=== PATIENT | female | born 1940 | race African-American/Black ===

== ENCOUNTER → 2017-01-30 | Outpatient (CLI) | payer OTHER, MEDICARE ==
[~2017-01-30] MED LIST: CALCIUM CARB/VIT D3 250/125 TABLET. PO SCH; CHOLECALCIFEROL (VITAMIN D3) 1,000 UNIT TABLET PO SCH; GADOBUTROL 7.5 MMOL/7.5 ML VIAL IV ONE; LABETALOL HCL 200 MG TABLET PO SCH; LOSARTAN POTASSIUM 50 MG TABLET. PO SCH; MONTELUKAST SODIUM 10 MG TABLET. PO SCH
--- NOTE | 2017-01-30 13:36 | RAD ---
MRI thoracic spine with and without contrast January 30, 2017 INDICATION: History of breast cancer. Mid thoracic spine pain radiating to the size for one month. COMPARISON: CT chest January 18, 2017 TECHNIQUE: Multiplanar, multisequence MR imaging of the thoracic spine is performed before and after the administration of intravenous contrast. 5 mL gadolinium based contrast was administered intravenously. FINDINGS: Alignment of the thoracic spine is normal. There are T1 hypointense areas at all levels of the visualized spine compatible with osseous metastatic disease. Findings are most significant at T5, T6, T7 and T8. At T5, there is a pathologic fracture with 25 percent loss of height. Low T1 signal alteration extends into the left pedicle and superior facet. There is a paraspinal soft tissue component measuring 3.8 cm in AP dimension. There is suggestion of possible left anterior epidural component with mild stenosis of the spinal canal. There may be mild left neuroforaminal stenosis, however evaluation is limited by extensive motion artifact. No additional fracture is identified. There is no cord signal alteration. Disc heights are relatively maintained. Visualized portions of the mediastinum and lungs appear clear. Thoracic aorta is normal in caliber. Visualized portions of the upper abdomen appear normal. IMPRESSION: Extensive osseous metastasis involving the visualized spine. There is a pathologic fracture at T5 with either retropulsion or left anterior epidural component of tumor. There is mild spinal canal stenosis and mild left neuroforaminal stenosis. No cord signal alteration is identified. Electronically signed by: Socorro Santana MD (01/30/2017 1:33 PM) [facility]
--- NOTE | 2017-01-30 16:08 | RAD ---
EXAMINATION: Magnetic resonance imaging (MRI) of the brain and brainstem without and with contrast 01/30/2017 12:55 PM HISTORY: History of breast cancer. TECHNIQUE: Multiplanar multi-weighted MRI of the brain and brainstem was performed without and with intravenous contrast using the general brain protocol. Contrast information: 5 mL Gadolinium based contrast COMPARISON: None available. FINDINGS: Evaluation is significantly limited by motion artifact. The scalp and calvarium are normal. The superior sagittal sinus demonstrates normal venous flow. The corpus callosum is normal in shape and signal intensity. There is a remote lacunar infarct in the left cerebellum. The pituitary and sella are normal. The brainstem and craniocervical junction are unremarkable. Scattered foci of T2/FLAIR signal hyperintensity in the periventricular and subcortical white matter compatible with mild chronic small vessel ischemic changes. Diffusion weighted images reveal no hyperintensities to suggest acute cerebral infarction. The susceptibility weighted sequences reveal no evidence of acute or chronic hemorrhage. The ventricles are normal in size and position without evidence of hydrocephalus. There are no definite areas of abnormal contrast enhancement. The paranasal sinuses are normal. The visualized portions of the mastoids are unremarkable. The orbits appear normal. Normal flow voids are demonstrated in the carotid arteries and basilar artery. There is T1 signal hypointensity involving the marrow of the upper cervical spine suspicious for osseous metastasis. IMPRESSION: 1. No definite evidence for intracranial metastasis. Evaluation is limited by motion artifact and if there is any change in neurologic status, repeat MRI may be of benefit. 2. Heterogeneous low T1 signal intensity within the marrow of the upper cervical spine is suspicious for osseous metastasis. Electronically signed by: Socorro Santana MD (01/30/2017 4:04 PM) [facility]
== END | disposition home or self-care (01) ==
LOC: MRI 09:58
PROVIDERS: ATTEND Internal Medicine Hematology & Oncology
DX: C50.919 Malignant neoplasm of unspecified site of unspecified female breast (principal); C79.51 Secondary malignant neoplasm of bone; I10 Essential (primary) hypertension; E11.9 Type 2 diabetes mellitus without complications; Z85.3 Personal history of malignant neoplasm of breast; Z79.01 Long term (current) use of anticoagulants
CPT/HCPCS: 70553; 72157; A9585

== ENCOUNTER → 2017-01-31 | Outpatient (CLI) | payer OTHER, MEDICARE ==
[~2017-01-31] MED LIST changes: -CALCIUM CARB/VIT D3 250/125 TABLET. PO SCH; -CHOLECALCIFEROL (VITAMIN D3) 1,000 UNIT TABLET PO SCH; +CONTRAST GIVEN MC PRN; -GADOBUTROL 7.5 MMOL/7.5 ML VIAL IV ONE; +IOHEXOL 240 MG/ML 50ML VIAL. PO ONE; +IOHEXOL 300 MG/ML 100ML VIAL. IV ONE; -LABETALOL HCL 200 MG TABLET PO SCH; -LOSARTAN POTASSIUM 50 MG TABLET. PO SCH; -MONTELUKAST SODIUM 10 MG TABLET. PO SCH
--- NOTE | 2017-01-31 13:24 | RAD ---
Indication: Breast cancer. Technique: Axial images and coronal and sagittal reformatted images are provided. Oral contrast and 75 mL of intravenous Omnipaque 300 was administered without complication. No comparison is available. One or more of the following individualized dose reduction techniques were utilized for this examination: 1. Automated exposure control 2. Adjustment of the mA and/or kV according to patient size 3. Use of iterative reconstruction technique Findings: Chest: There is minimal atelectasis in the right lung base. There is also minimal lingular atelectasis or scarring. There is a 3 mm nodule in the left upper lobe on axial image 23 and coronal image 21. There is no additional worrisome pulmonary nodule. There is no consolidation. Calcified granuloma on the right with calcified right hilar lymph nodes is noted. There is no pleural effusion. Central airways are patent. Patient appears to underwent right thyroid lobectomy. 5 mm nodule deep within the left thyroid lobe is noted. There is atheromatous disease in the thoracic aorta. There are minimal coronary artery calcifications. Heart is not enlarged and there is no hilar or mediastinal adenopathy. There is an abnormal enlarged left axillary lymph node, 2.6 x 1.8 cm. There is hyperdensity in the inferior aspect of the left axilla which could represent small amount of blood, please correlate with timing of breast biopsy. This could also be be reflux of contrast. Thoracic spine metastatic disease is much more apparent on the MRI from yesterday than on today's CT. Consider bone scan to evaluate the extent of osseous metastatic disease. There are a few subtle mixed lytic sclerotic lesions noted and redemonstration of mild compression deformity at T5. Abdomen: There are benign calcifications in the liver. There is focal fatty infiltration or perfusional variation along the falciform ligament. Gallbladder is unremarkable. Benign calcifications are noted in the spleen. Pancreas and adrenals are unremarkable. 2 cm right renal cyst is noted. Subcentimeter probable cysts are noted as well. Kidneys are symmetrically perfused. There is atheromatous disease in the abdominal aorta without aneurysm. There is no small bowel obstruction or mural thickening. Moderate amount of stool is noted in the colon, the colon is grossly unremarkable. The appendix is not definitely visualized, there are no secondary findings of appendicitis. There is no retroperitoneal or mesenteric adenopathy. There is a small fat-containing umbilical hernia. Pelvis: There is no pelvic adenopathy. There is no adnexal mass. There is no free pelvic fluid. Bladder is unremarkable. Few subtle sclerotic lesions in the lumbar spine and pelvis are suspicious given thoracic spine findings. Impression: 1. Left axillary adenopathy. 2. Subtle mixed sclerotic and lytic bone lesions are suspicious. Recent thoracic MRI demonstrated widespread skeletal metastases. Consider bone scan given the subtle nature of these findings by CT. 3. Pulmonary nodule, not considered incidental and does not fall under Fleischner guidelines. 6-12 month follow-up would be recommended. 4. No evidence of metastatic disease within the abdomen or pelvis.
== END | disposition home or self-care (01) ==
LOC: CT 09:38
PROVIDERS: ATTEND Internal Medicine Hematology & Oncology
DX: C50.919 Malignant neoplasm of unspecified site of unspecified female breast (principal); R91.1 Solitary pulmonary nodule
CPT/HCPCS: 71260; 74177

== ENCOUNTER → 2017-02-01 | Outpatient (CLI) | payer OTHER, MEDICARE ==
[~2017-02-01] MED LIST changes: -CONTRAST GIVEN MC PRN; -IOHEXOL 240 MG/ML 50ML VIAL. PO ONE; -IOHEXOL 300 MG/ML 100ML VIAL. IV ONE; +IOHEXOL 300 MG/ML 100ML VIAL. ONE
--- NOTE | 2017-02-01 11:34 | RAD ---
Indication: Left axillary lymph node. Breast cancer. Technique: The procedure, its risk and benefits, and potential complications were discussed with the patient. All questions were answered. Written consent to proceed was obtained. Timeout procedure was performed. The patient was prepped and draped in the usual manner. 1% lidocaine was administered locally. Under direct ultrasound visualization with an image documenting each needle pass stored, 4 14-gauge core samples were obtained. Post procedure imaging demonstrates no significant hematoma. The patient tolerated the procedure well. She was discharged in stable condition. Impression: Ultrasound-guided biopsy of a left axillary mass.
--- NOTE | 2017-02-02 13:46 | PATHOLOGY ---
PATHOLOGY REPORT * * * * * * * * FINAL DIAGNOSIS: Fibroadipose tissue, left axilla biopsy: - Focal coagulative necrosis, with surrounding dense scleosis focally containing histiocytes and multinucleated giant cells and showing focal chronic inflammation. See comment (JPM:mml; 02/02/2017) COMMENT: Sections of the left axilla biopsy show foci of coagulative necrosis with surrounding dense sclerosis showing focal histiocytic infiltration and multinucleated giant cells and showing focal chronic inflammation. There is yellow pigment within the areas of necrosis and within some of the histiocytes consistent with hematoidin. There are ghost outlines of cells within the necrotic areas, such that I cannot exclude the possibility of coagulative tumor necrosis. There are no viable tumor cells present. Please correlate with clinical history and clinical and radiographic findings. The results are reported to Dr. Millan on 02/02/2017 at approximately 12:30 p.m. (JPM:mml; 02/02/2017) REPORT ELECTRONICALLY SIGNED BY: Bryan Meléndez M.D. DATE/TIME: 02/02/2017 13:45 * * * * * * * * GROSS PATHOLOGY: Received in formalin labeled "Garima Motley, left axilla," are 4 distinct needle cores of vences soft tissue ranging from 0.6 to 1.4 cm in length, which are submitted entirely in cassette A1 through A3. (TSD; 02/01/2017) INITIAL CPT CODE(S): A; 81606 Professional services performed [place] [facility] [address] Technical services performed by [facility] at [address] [place] [address], [facility] [address], [place] [address]. SPECIMEN(S) RECEIVED: A.Left axillary node biopsy CLINICAL HISTORY: Left axillary node PATIENT: GARIMA MOTLEY /AGE: 12 1940 (Age: 76) PATIENT #: [id number] ALT CASE #: SPECIMEN COLLECTION DATE: 02/01/2017 SPECIMEN RECEIVED DATE: 02/01/2017 [facility] - [address] [place] [address] - PHONE: [phone] * * * END OF REPORT * * *
== END | disposition home or self-care (01) ==
LOC: US 11:55
PROVIDERS: ATTEND Internal Medicine Hematology & Oncology
DX: C50.912 Malignant neoplasm of unspecified site of left female breast (principal)
CPT/HCPCS: 76942

== ENCOUNTER → 2017-03-05 | Day surgery (SDC) | payer OTHER, MEDICARE ==
[~2017-03-05] MED LIST changes: +ASPIRIN ENTERIC COATED 81 MG TABLET.DR. PO; +CALCIUM CARBONATE 500 MG TABLET PO; +HYDROcodone/APAP 5/325MG 1 TAB TABLET PO; +HYDROmorphone 2 MG/ML VIAL IV; -IOHEXOL 300 MG/ML 100ML VIAL. ONE; +IV RINGERS,LACTATED 1000ML 1,000 ML IV; +LABETALOL HCL 200 MG TABLET PO; +LIDOCAINE 1% PF 2 ML VIAL. ID; +LOSARTAN POTASSIUM 50 MG TABLET. PO; +MONTELUKAST SODIUM 10 MG TABLET. PO; +MORPHINE SULFATE 2 MG/ML DISP.SYRIN. IV; +ONDANSETRON PF 4 MG/2 ML VIAL. IV; +PROCHLORPERAZINE 10 MG/2 ML VIAL. IV; +fentaNYL PF VIAL 100 MCG/2 ML VIAL IV; +traMADol 50 MG TABLET PO
[2017-03-05 08:55] LABS: POC GLUCOSE 161 mg/dL (70-99)
[2017-03-05] MEDS: BUPIVACAINE MPF 0.5% 30 ML VIAL. IJ (10:08)
[2017-03-05 11:32] LABS: POC GLUCOSE 132 mg/dL (70-99)
== END | disposition home or self-care (01) ==
LOC: US 08:35
DX: R59.1 Generalized enlarged lymph nodes (principal); E78.00 Pure hypercholesterolemia, unspecified; I10 Essential (primary) hypertension; J45.909 Unspecified asthma, uncomplicated; K21.9 Gastro-esophageal reflux disease without esophagitis; E11.9 Type 2 diabetes mellitus without complications; F32.9 Major depressive disorder, single episode, unspecified; F17.200 Nicotine dependence, unspecified, uncomplicated; E07.9 Disorder of thyroid, unspecified; Z98.890 Other specified postprocedural states; Z87.39 Personal history of other diseases of the musculoskeletal system and connective tissue; Z86.39 Personal history of other endocrine, nutritional and metabolic disease
CPT/HCPCS: 76882; 82962; C1769; J3490

== ENCOUNTER → 2017-03-09 | Outpatient (CLI) | payer OTHER, MEDICARE ==
[2017-03-09 10:45] LABS: ADD MAN DIFF? NO
[2017-03-09 10:57] LABS: BASO % 0 % (0-3); EOS # 0.1 x10^3/uL (0.0-0.7); EOS % 2 % (0-3); LYMPH # 0.5 x10^3/uL (1.0-4.8); LYMPH % 13 % (24-48); MEAN CORPUSCULAR HEMOGLOBIN 28 pg (25-35); MEAN CORPUSCULAR HGB CONC 33 g/dL (31-37); MEAN CORPUSCULAR VOLUME 87 fL (79-100); MONO # 0.4 x10^3/uL (0.0-1.1); MONO % 10 % (0-9); NEUT # 2.8 x10^3uL (1.8-7.7); NEUT % 75 % (31-73); PLATELET COUNT 176 x10^3/uL (140-400); RED BLOOD COUNT 4.58 x10^6/uL (3.50-5.40); RED CELL DISTRIBUTION WIDTH 14.6 % (11.5-14.5); WHITE BLOOD COUNT 3.7 x10^3/uL (4.0-11.0)
[2017-03-09 11:06] LABS: ALBUMIN 3.4 g/dL (3.4-5.0); ALBUMIN/GLOBULIN RATIO 0.9 (1.0-1.7); ALK PHOS 165 U/L (46-116); ALT (SGPT) 18 U/L (14-59); ANION GAP 7 (6-14); AST (SGOT) 19 U/L (15-37); BLOOD UREA NITROGEN 21 mg/dL (7-20); BUN/CREATININE RATIO 30 (6-20); CALCIUM 9.1 mg/dL (8.5-10.1); CARBON DIOXIDE 30 mmol/L (21-32); CHLORIDE 106 mmol/L (98-107); CREATININE 0.7 mg/dL (0.6-1.0); GFR 98.7; GLUCOSE 118 mg/dL (70-99); POTASSIUM 3.8 mmol/L (3.5-5.1); SODIUM 143 mmol/L (136-145); TOTAL BILIRUBIN 0.4 mg/dL (0.2-1.0)
[2017-03-13 13:23] LABS: CA 27.29 621.4 U/mL (0.0-38.6)
== END | disposition home or self-care (01) ==
LOC: LAB 10:18
DX: C50.919 Malignant neoplasm of unspecified site of unspecified female breast (principal)
CPT/HCPCS: 36415; 80053; 85025; 86300

== ENCOUNTER → 2017-03-26 | Outpatient (CLI) | payer OTHER, MEDICARE ==
[2017-03-26 15:36] LABS: ADD MAN DIFF? NO
[2017-03-26 15:41] LABS: BASO % 1 % (0-3); EOS % 1 % (0-3); HEMATOCRIT 34.2 % (36.0-47.0); HEMOGLOBIN 11.5 g/dL (12.0-15.5); LYMPH # 0.5 x10^3/uL (1.0-4.8); LYMPH % 20 % (24-48); MEAN CORPUSCULAR HEMOGLOBIN 29 pg (25-35); MEAN CORPUSCULAR HGB CONC 34 g/dL (31-37); MEAN CORPUSCULAR VOLUME 85 fL (79-100); MONO # 0.1 x10^3/uL (0.0-1.1); MONO % 6 % (0-9); NEUT # 1.7 x10^3uL (1.8-7.7); NEUT % 73 % (31-73); PLATELET COUNT 215 x10^3/uL (140-400); WHITE BLOOD COUNT 2.3 x10^3/uL (4.0-11.0)
== END | disposition home or self-care (01) ==
LOC: LAB 15:21
DX: C50.919 Malignant neoplasm of unspecified site of unspecified female breast (principal)
CPT/HCPCS: 36415; 85025

== ENCOUNTER → 2017-03-30 | Outpatient (CLI) | payer OTHER, MEDICARE ==
[2017-03-30 11:01] LABS: BASO % 0 % (0-3); EOS % 0 % (0-3); HEMATOCRIT 36.1 % (36.0-47.0); LYMPH # 0.4 x10^3/uL (1.0-4.8); LYMPH % 22 % (24-48); MEAN CORPUSCULAR HEMOGLOBIN 28 pg (25-35); MEAN CORPUSCULAR HGB CONC 33 g/dL (31-37); MEAN CORPUSCULAR VOLUME 86 fL (79-100); MONO % 3 % (0-9); NEUT # 1.2 x10^3uL (1.8-7.7); NEUT % 74 % (31-73); PLATELET COUNT 188 x10^3/uL (140-400); RED BLOOD COUNT 4.22 x10^6/uL (3.50-5.40); RED CELL DISTRIBUTION WIDTH 14.9 % (11.5-14.5)
[2017-03-30 11:17] LABS: ALBUMIN 3.3 g/dL (3.4-5.0); ALBUMIN/GLOBULIN RATIO 0.8 (1.0-1.7); ALK PHOS 134 U/L (46-116); ALT (SGPT) 18 U/L (14-59); ANION GAP 8 (6-14); AST (SGOT) 18 U/L (15-37); BLOOD UREA NITROGEN 23 mg/dL (7-20); BUN/CREATININE RATIO 33 (6-20); CALCIUM 9.3 mg/dL (8.5-10.1); CARBON DIOXIDE 31 mmol/L (21-32); CHLORIDE 102 mmol/L (98-107); CREATININE 0.7 mg/dL (0.6-1.0); GFR 98.7; GLUCOSE 176 mg/dL (70-99); POTASSIUM 3.5 mmol/L (3.5-5.1); SODIUM 141 mmol/L (136-145); TOTAL BILIRUBIN 0.3 mg/dL (0.2-1.0); TOTAL PROTEIN 7.4 g/dL (6.4-8.2)
[2017-03-30 11:34] LABS: WHITE BLOOD COUNT 1.7 x10^3/uL (4.0-11.0)
[2017-03-30 11:35] LABS: ADD MAN DIFF? YES
[2017-03-30 13:34] LABS: % LYMPHS 25 % (24-48); % MONOS 3 % (0-10); % SEGS 72 % (35-66)
[2017-03-30 13:35] LABS: PLT ESTIMATE ADEQUATE (ADEQUATE)
== END | disposition home or self-care (01) ==
LOC: LAB 10:33
DX: C50.919 Malignant neoplasm of unspecified site of unspecified female breast (principal); R79.89 Other specified abnormal findings of blood chemistry
CPT/HCPCS: 36415; 80053; 85007; 85025

== ENCOUNTER → 2017-04-13 | Outpatient (CLI) | payer OTHER, MEDICARE | END | disposition home or self-care (01) | LOC: SPEC 07:44 | DX: T88.8XXA Other specified complications of surgical and medical care, not elsewhere classified, initial encounter (principal) | CPT/HCPCS: 87071; 87075; 87205 ==

== ENCOUNTER → 2017-06-21 | Outpatient (CLI) | payer OTHER, MEDICARE ==
[~2017-06-21] MED LIST changes: -ASPIRIN ENTERIC COATED 81 MG TABLET.DR. PO; +BISACODYL 10 MG SUPP.RECT.; +BUPIVACAINE-EPI 0.25%-1:200000 50 ML VIAL.; -CALCIUM CARBONATE 500 MG TABLET PO; +CONTRAST GIVEN MC; -HYDROcodone/APAP 5/325MG 1 TAB TABLET PO; -HYDROmorphone 2 MG/ML VIAL IV; +IOHEXOL 300 MG/ML 100ML VIAL.; -IV RINGERS,LACTATED 1000ML 1,000 ML IV; -LABETALOL HCL 200 MG TABLET PO; -LIDOCAINE 1% PF 2 ML VIAL. ID; -LOSARTAN POTASSIUM 50 MG TABLET. PO; -MONTELUKAST SODIUM 10 MG TABLET. PO; -MORPHINE SULFATE 2 MG/ML DISP.SYRIN. IV; -ONDANSETRON PF 4 MG/2 ML VIAL. IV; -PROCHLORPERAZINE 10 MG/2 ML VIAL. IV; +SURGICEL HEMOSTAT 2X3 EACH.; -fentaNYL PF VIAL 100 MCG/2 ML VIAL IV; -traMADol 50 MG TABLET PO
[2017-06-21] MEDS: IOHEXOL 300 MG/ML 100ML VIAL. IV (11:07)
[2017-06-21] MEDS: IOHEXOL 240 MG/ML 50ML VIAL. PO (11:07)
== END | disposition home or self-care (01) ==
LOC: NM 14:58
DX: C50.912 Malignant neoplasm of unspecified site of left female breast (principal); C79.51 Secondary malignant neoplasm of bone; I10 Essential (primary) hypertension; E11.9 Type 2 diabetes mellitus without complications; E78.00 Pure hypercholesterolemia, unspecified; Z79.899 Other long term (current) drug therapy; J45.909 Unspecified asthma, uncomplicated; Z87.891 Personal history of nicotine dependence
CPT/HCPCS: 71260; 74177; 78306; 96374; A9503; Q9966; Q9967

== ENCOUNTER → 2017-07-12 | Outpatient (CLI) | payer OTHER, MEDICARE ==
[2017-07-12 10:22] LABS: ADD MAN DIFF? NO
[2017-07-12 10:43] LABS: BASO % 1 % (0-3); EOS # 0.1 x10^3/uL (0.0-0.7); EOS % 3 % (0-3); HEMATOCRIT 34.7 % (36.0-47.0); HEMOGLOBIN 11.7 g/dL (12.0-15.5); LYMPH # 0.6 x10^3/uL (1.0-4.8); LYMPH % 16 % (24-48); MEAN CORPUSCULAR HEMOGLOBIN 32 pg (25-35); MEAN CORPUSCULAR HGB CONC 34 g/dL (31-37); MEAN CORPUSCULAR VOLUME 94 fL (79-100); MONO # 0.5 x10^3/uL (0.0-1.1); MONO % 14 % (0-9); NEUT # 2.3 x10^3uL (1.8-7.7); NEUT % 66 % (31-73); PLATELET COUNT 244 x10^3/uL (140-400); RED CELL DISTRIBUTION WIDTH 18.9 % (11.5-14.5); WHITE BLOOD COUNT 3.5 x10^3/uL (4.0-11.0)
[2017-07-12 10:49] LABS: ALBUMIN 3.5 g/dL (3.4-5.0); ALBUMIN/GLOBULIN RATIO 0.9 (1.0-1.7); ALK PHOS 99 U/L (46-116); ALT (SGPT) 34 U/L (14-59); ANION GAP 8 (6-14); AST (SGOT) 31 U/L (15-37); BLOOD UREA NITROGEN 18 mg/dL (7-20); BUN/CREATININE RATIO 23 (6-20); CALCIUM 8.4 mg/dL (8.5-10.1); CARBON DIOXIDE 29 mmol/L (21-32); CHLORIDE 106 mmol/L (98-107); CREATININE 0.8 mg/dL (0.6-1.0); GFR 84.6; GLUCOSE 108 mg/dL (70-99); POTASSIUM 3.8 mmol/L (3.5-5.1); SODIUM 143 mmol/L (136-145); TOTAL BILIRUBIN 0.5 mg/dL (0.2-1.0); TOTAL PROTEIN 7.5 g/dL (6.4-8.2)
[2017-07-13 17:15] LABS: CA 27.29 345.9 U/mL (0.0-38.6)
== END | disposition home or self-care (01) ==
LOC: LAB 10:07
DX: C50.912 Malignant neoplasm of unspecified site of left female breast (principal)
CPT/HCPCS: 36415; 80053; 85025; 86300

== ENCOUNTER → 2017-09-24 | Outpatient (CLI) | payer OTHER ==
[~2017-09-24] MED LIST changes: -BISACODYL 10 MG SUPP.RECT.; -BUPIVACAINE-EPI 0.25%-1:200000 50 ML VIAL.; -CONTRAST GIVEN MC; +CONTRAST GIVEN. MC; +IOHEXOL 240 MG/ML 100 ML VIAL. IV; +IOHEXOL 240 MG/ML 50ML VIAL. PO; -IOHEXOL 300 MG/ML 100ML VIAL.; +IOHEXOL 300 MG/ML 100ML VIAL. IV; +IOHEXOL 300 MG/ML 50 ML VIAL. PO; -SURGICEL HEMOSTAT 2X3 EACH.
[2017-09-24 08:41] LABS: ADD MAN DIFF? NO
[2017-09-24 08:49] LABS: BASO % 2 % (0-3); EOS % 1 % (0-3); HEMOGLOBIN 11.6 g/dL (12.0-15.5); LYMPH # 0.5 x10^3/uL (1.0-4.8); LYMPH % 24 % (24-48); MEAN CORPUSCULAR HEMOGLOBIN 32 pg (25-35); MEAN CORPUSCULAR HGB CONC 34 g/dL (31-37); MEAN CORPUSCULAR VOLUME 94 fL (79-100); MONO # 0.1 x10^3/uL (0.0-1.1); MONO % 3 % (0-9); NEUT # 1.4 x10^3uL (1.8-7.7); NEUT % 70 % (31-73); PLATELET COUNT 208 x10^3/uL (140-400); RED BLOOD COUNT 3.63 x10^6/uL (3.50-5.40); RED CELL DISTRIBUTION WIDTH 18.7 % (11.5-14.5)
[2017-09-24 09:07] LABS: ALBUMIN 3.6 g/dL (3.4-5.0); ALK PHOS 76 U/L (46-116); ALT (SGPT) 23 U/L (14-59); ANION GAP 5 (6-14); AST (SGOT) 20 U/L (15-37); BLOOD UREA NITROGEN 24 mg/dL (7-20); BUN/CREATININE RATIO 24 (6-20); CALCIUM 8.9 mg/dL (8.5-10.1); CARBON DIOXIDE 30 mmol/L (21-32); CHLORIDE 104 mmol/L (98-107); GFR 65.4; GLUCOSE 109 mg/dL (70-99); SODIUM 139 mmol/L (136-145); TOTAL BILIRUBIN 0.5 mg/dL (0.2-1.0); TOTAL PROTEIN 7.2 g/dL (6.4-8.2)
== END | disposition home or self-care (01) ==
LOC: NM 08:30
DX: Z08 Encounter for follow-up examination after completed treatment for malignant neoplasm (principal); C79.89 Secondary malignant neoplasm of other specified sites; N28.1 Cyst of kidney, acquired; I10 Essential (primary) hypertension; E11.9 Type 2 diabetes mellitus without complications; E78.00 Pure hypercholesterolemia, unspecified; K21.9 Gastro-esophageal reflux disease without esophagitis; J45.909 Unspecified asthma, uncomplicated; Z87.891 Personal history of nicotine dependence; Z85.3 Personal history of malignant neoplasm of breast; Z86.39 Personal history of other endocrine, nutritional and metabolic disease; Z87.39 Personal history of other diseases of the musculoskeletal system and connective tissue; Z79.899 Other long term (current) drug therapy
CPT/HCPCS: 36415; 71260; 74177; 78306; 80053; 85025; 96374; A9503

== ENCOUNTER → 2017-12-25 | Outpatient (CLI) | payer OTHER, MEDICARE ==
[2017-12-05 11:13] VITALS: BP 168/75
[~2017-12-25] MED LIST changes: +ASPI-482 PO; +CALC500T30 PO; +CHOL200027 PO; -CONTRAST GIVEN. MC; +CONTRAST GIVEN. MC PRN; +DENO120V SQ; +DILT180C29 PO; +DILT240C2 PO; +HYDR-2758 PO; -IOHEXOL 240 MG/ML 100 ML VIAL. IV; -IOHEXOL 240 MG/ML 50ML VIAL. PO; +IOHEXOL 240 MG/ML 50ML VIAL. PO ONE; -IOHEXOL 300 MG/ML 100ML VIAL. IV; +IOHEXOL 300 MG/ML 100ML VIAL. IV ONE; -IOHEXOL 300 MG/ML 50 ML VIAL. PO; +LABE200T4 PO; +LETR2.5T18 PO; +LOSA50TA7 PO; +METF10007 PO; +MONT10TA9 PO; +NAPR220T70 PO; +PALB125C PO; +PROAIR HFA8.5 GM INH; +TRAM50TA PO
--- NOTE | 2017-12-25 15:50 | RAD ---
CT of the chest, abdomen, and pelvis 12/25/2017 INDICATION: History of breast cancer COMPARISON STUDY: CT of the chest, abdomen, and pelvis September 24, 2017. TECHNIQUE: Multidetector CT imaging of the chest, abdomen, and pelvis was obtained following the administration of IV and enteric contrast. FINDINGS: Right thyroidectomy noted. Hypertrophy of the left thyroid with small hypodense nodules similar to comparison study. Heart size is within normal limits. No pericardial effusion is identified. No pathologically enlarged mediastinal adenopathy is identified. Large calcified lymph nodes in the right hilum and calcified pulmonary granuloma right again noted. Postsurgical changes involving the left chest and axilla are again seen. Subcutaneous thickening is noted in this area appears slightly smaller than on comparison study with some evidence of contracture. Favor scarring or residual neoplasm. Continued attention on follow-up studies recommended. No pneumothorax, pleural effusion, or focal consolidative infiltrate is identified. No concerning new nodules or pulmonary masses are seen. Diffuse skeletal metastasis is again seen the distribution of which is similar to comparison study. Lesion sclerosis has continued to progress in the interim. Solid viscera of the abdomen are stable in appearance. The liver and spleen demonstrate changes of prior granulomatous disease which is stable. The adrenal glands are unremarkable. Right-sided renal cysts similar. Pancreas is grossly unremarkable. No evidence of bowel obstruction is identified. The bladder is decompressed limiting evaluation. Bulky uterine calcifications suggest fibroid disease and are unchanged. Similar to findings of pneumothorax, multifocal osseous metastasis is noted throughout the lumbar spine, abdomen, and pelvis. The overall distribution is similar to prior study. Sclerosis is mildly progressed. Compression deformity of the L4 vertebral body is similar. Mild compression deformities at T5, T6, T7, are similar. IMPRESSION:. 1. Diffuse osseous metastasis with grossly similar distribution, and continued increasing sclerosis in the interim. 2. Decreased subcutaneous thickening in the left axilla. Differential considerations include scarring, residual neoplasm. The former is favored. Continued attention on follow-up studies recommended. CT DOSING PQRS STATEMENT: One or more of the following individualized dose reduction techniques were utilized for this examination: 1. Automated exposure control 2. Adjustment of the mA and/or kV according to patient size 3. Use of iterative reconstruction technique Electronically signed by: Vahe Emanuel MD (12/25/2017 3:47 PM) [facility]
--- NOTE | 2017-12-25 17:23 | RAD ---
Whole body bone scan Clinical indications: Breast cancer. COMPARISON: September 24, 2017 bone scan. TECHNIQUE: After IV infusion of 25.2 mCi of technetium 99m MDP, delayed anterior and posterior planar images of the whole skeleton were performed. FINDINGS: Again seen is activity present involving the rib cage bilaterally and throughout the thoracic and lumbar spine and there are some foci within the calvarium. This has not changed significantly. No new foci of osseous uptake is seen otherwise. Bilateral renal function is evident. IMPRESSION: Stable osseous metastatic disease. Electronically signed by: Reece Masterson MD (12/25/2017 5:19 PM) [facility] [place]
== END | disposition home or self-care (01) ==
LOC: NM 09:52
PROVIDERS: ATTEND Internal Medicine Hematology & Oncology
DX: C34.11 Malignant neoplasm of upper lobe, right bronchus or lung (principal); C79.51 Secondary malignant neoplasm of bone; M43.8X4 Other specified deforming dorsopathies, thoracic region; N28.1 Cyst of kidney, acquired; D71 Functional disorders of polymorphonuclear neutrophils; E04.8 Other specified nontoxic goiter; Z85.3 Personal history of malignant neoplasm of breast
CPT/HCPCS: 71260; 74177; 78306; 96374; A9503; Q9966; Q9967

== ENCOUNTER → 2018-01-02 | Outpatient (CLI) | payer OTHER, MEDICARE ==
[2017-12-05 11:13] VITALS: BP 168/75
[~2018-01-02] MED LIST changes: -CONTRAST GIVEN. MC PRN; +GADOBUTROL 7.5 MMOL/7.5 ML VIAL IV ONE; -HYDR-2758 PO; +HYDR-2761 PO; -IOHEXOL 240 MG/ML 50ML VIAL. PO ONE; -IOHEXOL 300 MG/ML 100ML VIAL. IV ONE
--- NOTE | 2018-01-02 15:10 | RAD ---
MR of the left shoulder region with and without contrast HISTORY: Metastatic breast cancer. Left shoulder pain. TECHNIQUE: Routine multiplanar sequences are obtained before and after intravenous contrast. FINDINGS: Small bone lesion at the subchondral inferior humeral head measures 9 mm. This would most typically represent a degenerative cyst. However, it does appear to demonstrate some enhancement on postcontrast images in a metastatic focus is possible. No other significant bone lesion is identified. Mild patchy marrow irregularity at the glenoid and proximal humerus is likely due to marrow heterogeneity. No evidence of acute fracture or aggressive bone destruction Degenerative changes at the glenohumeral joint and acromioclavicular joint. Trace joint effusion. Generalized rotator cuff tendinosis without large full-thickness rupture. Biceps tendinosis. IMPRESSION: Small bone lesion at the inferior medial humeral head is subchondral, and may just represent a subchondral cyst. However, there is mild enhancement and a metastatic lesion is possible. There is subtle signal here on the bone scan of December 25, but not sufficient to be diagnostic of metastasis. Electronically signed by: Stevo Rhodes MD (01/02/2018 3:07 PM) [facility]
== END | disposition home or self-care (01) ==
LOC: MRI 09:32
PROVIDERS: ATTEND Internal Medicine Hematology & Oncology
DX: M25.812 Other specified joint disorders, left shoulder (principal); M19.012 Primary osteoarthritis, left shoulder; I10 Essential (primary) hypertension; Z85.3 Personal history of malignant neoplasm of breast
CPT/HCPCS: 73223; A9585

== ENCOUNTER → 2018-02-22 | Outpatient (CLI) | payer OTHER, MEDICARE ==
[2018-01-29 10:33] VITALS: BP 168/74
[~2018-02-22] MED LIST changes: +ALBU2.5V8 INH; -GADOBUTROL 7.5 MMOL/7.5 ML VIAL IV ONE; +LOSA-73 PO; -LOSA50TA7 PO; -PROAIR HFA8.5 GM INH
[2018-02-22 16:45] LABS: BASO % 1 % (0-3); EOS % 1 % (0-3); HEMATOCRIT 31.3 % (36.0-47.0); LYMPH # 0.5 x10^3/uL (1.0-4.8); LYMPH % 23 % (24-48); MEAN CORPUSCULAR HEMOGLOBIN 35 pg (25-35); MEAN CORPUSCULAR HGB CONC 35 g/dL (31-37); MEAN CORPUSCULAR VOLUME 99 fL (79-100); MONO # 0.4 x10^3/uL (0.0-1.1); MONO % 19 % (0-9); NEUT # 1.2 x10^3uL (1.8-7.7); NEUT % 56 % (31-73); PLATELET COUNT 183 x10^3/uL (140-400); RED BLOOD COUNT 3.16 x10^6/uL (3.50-5.40); RED CELL DISTRIBUTION WIDTH 15.2 % (11.5-14.5); WHITE BLOOD COUNT 2.2 x10^3/uL (4.0-11.0)
[2018-02-22 17:07] LABS: ALBUMIN 3.4 g/dL (3.4-5.0); ALBUMIN/GLOBULIN RATIO 0.9 (1.0-1.7); CALCIUM 9.2 mg/dL (8.5-10.1); GFR 65.2; TOTAL BILIRUBIN 0.2 mg/dL (0.2-1.0); TOTAL PROTEIN 7.2 g/dL (6.4-8.2)
[2018-02-22 18:28] LABS: % BASOS 2 % (0-3); % LYMPHS 26 % (24-48); % MONOS 18 % (0-10); % SEGS 54 % (35-66)
[2018-02-22 18:29] LABS: OVALOCYTES OCC; PLT ESTIMATE ADEQUATE (ADEQUATE)
== END | disposition home or self-care (01) ==
LOC: LAB 16:33
PROVIDERS: ATTEND Internal Medicine Hematology & Oncology
DX: C50.919 Malignant neoplasm of unspecified site of unspecified female breast (principal)
CPT/HCPCS: 80053; 85007; 85025

== ENCOUNTER → 2018-02-27 | Outpatient (CLI) | payer OTHER, MEDICARE ==
[2018-01-29 10:33] VITALS: BP 168/74
[~2018-02-27] MED LIST changes: +EVER10TA PO; +EXEM25TA PO; +IOHEXOL 240 MG/ML 50ML VIAL. PO ONE; +IOHEXOL 300 MG/ML 100ML VIAL. IV ONE
--- NOTE | 2018-02-27 10:56 | RAD ---
CT CHEST ABD PELVIS W/CONTRAST Indication: Breast cancer Technique: Postcontrast CT imaging was performed of the chest, abdomen, pelvis, multiplanar reconstruction images submitted. Oral contrast was given. One or more of the following individualized dose reduction techniques were utilized for this examination: 1. Automated exposure control 2. Adjustment of the mA and/or kV according to patient size 3. Use of iterative reconstruction technique. Comparison: December 25, 2017 CHEST: Findings: There is residual soft tissue density of the left axillary region deep to site of presumable surgical site best seen axial images 14-20 in greatest dimension about 3.5 cm AP by 1.7 cm transverse by 3.4 cm cc overall fairly similar. Compared with December exam. The more inferiorly, there is some soft tissue density deep in the left breast also overall similar in morphology. No new significant lymphadenopathy is identified of the chest. There again has been right thyroidectomy. Left thyroid gland is somewhat enlarged as seen previously, again hypodense lesion more posteriorly of the left thyroid gland estimated about 0.5 cm and a smaller focus more inferiorly. There is likely some coronary calcification. There is no new pericardial pleural fluid or pneumothorax. There is very mild increased infiltrate more medially of the right lower lobe adjacent to mild bronchiectasis. There is again likely mild fibrotic change of the lingula. There is again large calcification of the right upper lobe. There is again multifocal, extensive osseous metastatic disease, findings fairly similar by CT compared with December exam, degree of mild height loss of mid thoracic vertebral bodies similar. There are again calcified right hilar nodes. IMPRESSION: 1. Other than mild increased infiltrate of the medial right lower lobe adjacent to mild bronchiectasis, thoracic findings are similar compared with December 2017 exam. Soft tissue density of the left axillary region is stable. There is no new lymphadenopathy. There is again extensive osseous metastatic disease. Abdomen pelvis: Findings: No new focal abnormality is identified of the liver, spleen, pancreas. There are again splenic and hepatic granulomas. Gallbladder is present without obvious intraluminal abnormality by CT. There is mild fullness of the left adrenal gland although stable. There are again a couple of right renal cysts with the largest about 2.2 cm. Both kidneys enhance, no hydronephrosis. There is retained stool greater of the rectum and sigmoid colon, appearance of mild wall thickening of the sigmoid colon and rectum. There is probable trace free fluid in the pelvis. There are calcified uterine masses likely fibroids as seen previously. There is again extensive osseous metastatic disease. Superior L4 compression deformity is similar. IMPRESSION: 1. There is again extensive osseous metastatic disease. There is no new liver lesion or lymphadenopathy. Mild fullness of the left adrenal gland is stable. 2. There is retained stool greater of the sigmoid colon and the rectum, also appearance of mild wall thickening of the sigmoid colon and the rectum which could be due to pathologic wall thickening such as from proctocolitis in the appropriate clinical setting. Colon screening is advised if this has not been performed. There is probable trace free fluid in the pelvis. 3. There are again calcified uterine masses likely fibroids. Electronically signed by: Harvinder Wiley MD (02/27/2018 10:52 AM) [facility]
--- NOTE | 2018-02-27 15:41 | RAD ---
Examination: Whole body bone scan HISTORY: Breast cancer staging COMPARISON: CT chest abdomen pelvis from same day exam TECHNIQUE: 25 mCi of technetium 99m MDP was injected IV and anterior and posterior posterior whole body images are obtained. Lateral views of the lumbar spine were obtained. FINDINGS: There are multiple foci of radiotracer uptake identified throughout the visualized thoracolumbar spine and bilateral sacroiliac joints and bilateral ischium and in the multiple bilateral ribs likely metastasis. Faint radiotracer foci of uptake identified in the right posterior skull region could be skeletal metastasis. Questionable faint foci of radiotracer uptake identified in the proximal bilateral femurs could be metastasis. IMPRESSION: 1. Diffuse foci of radiotracer uptake identified in the thoracolumbar spine, pelvis and ribs and in the skull likely osteoblastic skeletal metastasis. 2. Questionable faint foci of radiotracer uptake identified in the proximal bilateral femurs could be metastasis. Electronically signed by: Willy Pepper MD (02/27/2018 3:37 PM) [facility]
== END | disposition home or self-care (01) ==
LOC: NM 07:39
PROVIDERS: ATTEND Internal Medicine Hematology & Oncology
DX: C79.51 Secondary malignant neoplasm of bone (principal); N28.1 Cyst of kidney, acquired; K59.00 Constipation, unspecified; J47.9 Bronchiectasis, uncomplicated; R59.0 Localized enlarged lymph nodes; Z17.0 Estrogen receptor positive status [ER+]; Z85.3 Personal history of malignant neoplasm of breast
CPT/HCPCS: 71260; 74177; 78306; 96374; A9503; Q9966; Q9967

== ENCOUNTER → 2018-03-11 | Outpatient (CLI) | payer OTHER, MEDICARE ==
[2018-02-27 12:04] VITALS: BP 133/62
[~2018-03-11] MED LIST changes: -IOHEXOL 240 MG/ML 50ML VIAL. PO ONE; -IOHEXOL 300 MG/ML 100ML VIAL. IV ONE
[2018-03-11 14:07] LABS: BASO % 1 % (0-3); EOS % 2 % (0-3); HEMATOCRIT 30.5 % (36.0-47.0); HEMOGLOBIN 10.6 g/dL (12.0-15.5); LYMPH # 0.4 x10^3/uL (1.0-4.8); LYMPH % 14 % (24-48); MEAN CORPUSCULAR HEMOGLOBIN 34 pg (25-35); MEAN CORPUSCULAR HGB CONC 35 g/dL (31-37); MEAN CORPUSCULAR VOLUME 99 fL (79-100); MONO # 0.3 x10^3/uL (0.0-1.1); MONO % 12 % (0-9); NEUT # 1.9 x10^3uL (1.8-7.7); NEUT % 71 % (31-73); PLATELET COUNT 226 x10^3/uL (140-400); RED BLOOD COUNT 3.09 x10^6/uL (3.50-5.40); RED CELL DISTRIBUTION WIDTH 14.8 % (11.5-14.5); WHITE BLOOD COUNT 2.7 x10^3/uL (4.0-11.0)
[2018-03-11 14:33] LABS: ALBUMIN 3.2 g/dL (3.4-5.0); ALBUMIN/GLOBULIN RATIO 0.8 (1.0-1.7); CALCIUM 9.5 mg/dL (8.5-10.1); GFR 65.2; PHOSPHORUS 2.4 mg/dL (2.6-4.7); POTASSIUM 4.2 mmol/L (3.5-5.1); TOTAL BILIRUBIN 0.3 mg/dL (0.2-1.0)
[2018-03-11 14:36] LABS: CHOLESTEROL/HDL RATIO 13.7
== END | disposition home or self-care (01) ==
LOC: LAB 13:29
PROVIDERS: ATTEND Internal Medicine Hematology & Oncology
DX: C50.912 Malignant neoplasm of unspecified site of left female breast (principal); Z17.0 Estrogen receptor positive status [ER+]
CPT/HCPCS: 36415; 80053; 80061; 84100; 85025

== ENCOUNTER → 2018-05-10 | Day surgery (SDC) | payer OTHER, MEDICARE ==
[~2018-05-10] MED LIST changes: +ALBU2.5V8 NEB; +ATOR20TA58; +BUDE0.5A NEB; +DILT240C82; +DRON2.5C2 PO; +FEMARA2.5 MG PO; +FURO40TA4; +HYDROmorphone 2 MG/ML VIAL IV PRN; +INSU100I11 SQ; +INSU100I13; +INSU100I13 SQ; +IV RINGERS,LACTATED 1000ML 1,000 ML IV SCH; -LETR2.5T18 PO; +LIDOCAINE 1% PF 2 ML VIAL. ID PRN; +LINA5TAB2; +LOPE2CAP PO; +LOSA50TA15; +MAGN400T22; +MESA400C2 PO; +METF500T9; +MIRT30TA3; +MIRT7.5T8 PO; +MORPHINE SULFATE 2 MG/ML VIAL. IV PRN; +ONDANSETRON PF 4 MG/2 ML VIAL. IV PRN; +POTA10TA6; +PROCHLORPERAZINE 10 MG/2 ML VIAL. IV PRN; +PROPOFOL 40 ML IV ONE; +SIME80TA14 PO; +[UNRECOGNIZED DRUG - CODE]; +fentaNYL PF VIAL 100 MCG/2 ML VIAL IV PRN
[2018-05-10 10:38] VITALS: BP 109/54
--- NOTE | 2018-05-13 17:08 | PATHOLOGY ---
[facility] Accession Number: [id number] . 01 Material submitted: . RANDOM COLON BIOPSIES . 01 Clinical history: . Abnormal PET, diarrhea . 02 Diagnosis: Colonic mucosa, random colon biopsies: - Focal mild active colitis. 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 02 Comment: Sections of the random colon biopsy reveal multiple segments of colonic mucosa. Several of the biopsy segments show focal mild active colitis which consists of foci of neutrophilic crypt injury. This is usually an incidental finding. Focal active colitis may be seen in 10% of otherwise normal biopsies in patients with chronic diarrhea. It may also be seen with bowel prep. I do not see features of idiopathic chronic inflammatory bowel disease including basal lymphoplasmacytic inflammatory infiltrate and crypt architectural distortion. Correlate clinically. 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 02 Electronically signed: . Bryan Meléndez MD, Pathologist NPI- [id number] . 01 Gross description: . Received in formalin labeled "Garima Hobson, random colon biopsies," are multiple segments of vences soft tissue measuring 1.7 x 0.6 x 0.1 cm in aggregate dimensions. The specimen is filtered and entirely submitted in cassette A1. (TSD; 05/10/2018) TOB/TOB . 02 Pathologist provided ICD-10: K52.9 . 02 CPT . 317111 Specimen Comment: A courtesy copy of this report has been sent to Specimen Comment: [phone], . Specimen Comment: Report sent to / DR MARTINS Performed at: [address], [place] [id number] MD Chevy Ervin MD Phone: [phone] Performed at: [address] [id number] MD Bryan Meléndez MD Phone: [phone]
== END | disposition home or self-care (01) ==
LOC: SURG 08:50
PROVIDERS: ATTEND Internal Medicine Gastroenterology
DX: K52.89 Other specified noninfective gastroenteritis and colitis (principal); K64.0 First degree hemorrhoids; I10 Essential (primary) hypertension; E11.9 Type 2 diabetes mellitus without complications; J45.909 Unspecified asthma, uncomplicated; E78.00 Pure hypercholesterolemia, unspecified; Z85.3 Personal history of malignant neoplasm of breast; Z82.49 Family history of ischemic heart disease and other diseases of the circulatory system; Z83.3 Family history of diabetes mellitus; Z80.41 Family history of malignant neoplasm of ovary; Z87.891 Personal history of nicotine dependence; Z79.84 Long term (current) use of oral hypoglycemic drugs; Z79.899 Other long term (current) drug therapy; Z98.890 Other specified postprocedural states
CPT/HCPCS: 45380; 82962; 88305; J2704

== ENCOUNTER 2018-06-11 14:43 | Inpatient (IN) | payer OTHER, MEDICARE ==
[~2018-06-11] VITALS: Ht 160 cm; Wt 51.9 kg
[~2018-06-11 14:43] MED LIST changes: -ALBU2.5V8 NEB; -ATOR20TA58; -BUDE0.5A NEB; -CONTRAST GIVEN. MC PRN; -DILT240C82; -DRON2.5C2 PO; -FURO40TA4; -INSU100I11 SQ; -INSU100I13; -INSU100I13 SQ; -IOHEXOL 240 MG/ML 50ML VIAL. PO ONE; -IOHEXOL 300 MG/ML 100ML VIAL. IV ONE; -LINA5TAB2; -LOPE2CAP PO; -LOSA50TA15; -MAGN400T22; -MESA400C2 PO; -METF500T9; -MIRT30TA3; -MIRT7.5T8 PO; -POTA10TA6; -SIME80TA14 PO; -[UNRECOGNIZED DRUG - CODE]
--- NOTE | 2018-06-11 16:27 | EKG ---
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
[2018-06-11 16:35] LABS: BASO % 1 % (0-3); EOS # 0.1 x10^3/uL (0.0-0.7); EOS % 1 % (0-3); HEMATOCRIT 24.8 % (36.0-47.0); HEMOGLOBIN 7.9 g/dL (12.0-15.5); LYMPH # 0.3 x10^3/uL (1.0-4.8); LYMPH % 8 % (24-48); MEAN CORPUSCULAR HEMOGLOBIN 25 pg (25-35); MEAN CORPUSCULAR HGB CONC 32 g/dL (31-37); MEAN CORPUSCULAR VOLUME 79 fL (79-100); MONO # 0.2 x10^3/uL (0.0-1.1); MONO % 7 % (0-9); NEUT # 3.1 x10^3uL (1.8-7.7); NEUT % 83 % (31-73); PLATELET COUNT 260 x10^3/uL (140-400); RED BLOOD COUNT 3.14 x10^6/uL (3.50-5.40); RED CELL DISTRIBUTION WIDTH 20.5 % (11.5-14.5); WHITE BLOOD COUNT 3.7 x10^3/uL (4.0-11.0)
[2018-06-11 16:45] LABS: CREATININE 1.1 mg/dL (0.6-1.0); GFR 58.4; POTASSIUM 4.7 mmol/L (3.5-5.1)
[2018-06-11 16:49] LABS: PROTHROMBIN TIME PATIENT 13.8 SEC (11.7-14.0)
[2018-06-11 16:51] LABS: ALBUMIN 2.6 g/dL (3.4-5.0); ALBUMIN/GLOBULIN RATIO 0.6 (1.0-1.7); MAGNESIUM 1.7 mg/dL (1.8-2.4); TOTAL BILIRUBIN 0.4 mg/dL (0.2-1.0); TOTAL PROTEIN 6.7 g/dL (6.4-8.2)
[2018-06-11] MEDS ORDERED: INSU100I13 (16:51)
[2018-06-11] MEDS ORDERED: ATOR20TA58 (16:51)
[2018-06-11] MEDS ORDERED: LINA5TAB2 (16:51)
[2018-06-11] MEDS ORDERED: LOSA50TA15 (16:51)
[2018-06-11] MEDS ORDERED: MIRT30TA3 (16:51)
[2018-06-11] MEDS ORDERED: FURO40TA4 (16:51)
[2018-06-11] MEDS ORDERED: METF500T9 (16:51)
[2018-06-11] MEDS ORDERED: POTA10TA6 (16:51)
[2018-06-11] MEDS ORDERED: DILT240C82 (16:51)
[2018-06-11] MEDS ORDERED: [UNRECOGNIZED DRUG - CODE] (16:51)
[2018-06-11] MEDS ORDERED: MAGN400T22 (16:51)
[2018-06-11 17:01] LABS: % LYMPHS 9 % (24-48); % MONOS 5 % (0-10); % SEGS 86 % (35-66); ANISOCYTOSIS MOD; HYPOCHROMIA SLIGHT; PLT ESTIMATE ADEQUATE (ADEQUATE)
[2018-06-11 17:02] LABS: BURR CELLS OCC; MICROCYTOSIS SLIGHT; SCHISTOCYTES OCC; TOXIC VACUOLATION SLIGHT
[2018-06-11 17:03] LABS: POIKILOCYTOSIS SLIGHT
[2018-06-11 17:07] LABS: D-DIMER 12.84 ug/mlFEU (0.00-0.50)
[2018-06-11] MEDS ORDERED: IPRATRPIUM/ALBUTEROL 0.5/2.5MG 3 ML NEBU. NEB ONE (17:15)
[2018-06-11 18:07] LABS: BILIRUBIN,URINE NEGATIVE (NEG); CLARITY,URINE CLEAR; COLOR,URINE YELLOW; NITRITE,URINE NEGATIVE (NEG); PH,URINE 5.5; PROTEIN,URINE NEGATIVE (NEG-TRACE); UROBILINOGEN,URINE 0.2 mg/dL (0.2 mg/dL)
[2018-06-11 18:12] LABS: BACTERIA,URINE FEW /HPF (0-FEW); RBC,URINE RARE /HPF (0-2); SQUAMOUS EPITHELIAL CELL,UR MOD /LPF; WBC,URINE OCC /HPF (0-4)
--- NOTE | 2018-06-11 18:49 | PHYS DOC ---
Past Medical History Past Medical History: Cancer, Diabetes-Type II, Hypertension, Other Additional Past Medical Histor: breast cancer mets to bone (MARIAH BROWN APRN) Past Surgical History: Other Additional Past Surgical Histo: throid tumor, left breast and lymphnodes (MARIAH BROWN APRN) Alcohol Use: None Drug Use: None (MARIAH BROWN APRN) Adult General Chief Complaint Chief Complaint: SHORTNESS OF BREATH HPI HPI Patient is a 78 year old female with history of diabetes type 2, hypertension, breast cancer with metastatic is to the bones who presents to the ED today complaining of shortness of breath especially on exertion but she states is chronic but has gotten worse in the last couple days. Patient states she had some scans done today, she states one was a bone scan. She states she has also noted increased swelling around her abdomen. She is also states she is noted increased swelling to bilateral lower extremities. She is denying any history of COPD but states she gets breathing treatments at home. Patient and family member up will historians (MARIAH BROWN APRN) Review of Systems Review of Systems Constitutional: Denies fever or chills [] Eyes: Denies change in visual acuity, redness, or eye pain [] HENT: Denies nasal congestion or sore throat [] Respiratory: Reports shortness of breath. Denies cough Cardiovascular: No additional information not addressed in HPI [] GI:Reports abdominal swelling. Denies abdominal pain, nausea, vomiting, bloody stools or diarrhea [] : Denies dysuria or hematuria [] Musculoskeletal: Reports bilateral lower extremity swelling. Denies back pain or joint pain [] Integument: Denies rash or skin lesions [] Neurologic: Denies headache, focal weakness or sensory changes [] All other systems were reviewed and found to be within normal limits, except as documented in this note. (MARIAH BROWN APRN) Current Medications Current Medications Current Medications Medications (Trade) Dose Ordered Sig/Rodríguez Start Time Stop Time Status Last Admin Dose Admin Albuterol/ Ipratropium (Duoneb) 3 ml 1X ONCE 06/11/18 17:15 06/11/18 17:16 DC 06/11/18 17:19 3 ML (CARLA MYLES MD) Allergies Allergies Allergies Coded Allergies Type Severity Reaction Last Updated Verified No Known Drug Allergies 05/24/18 No (CARLA MYLES MD) Physical Exam Physical Exam Constitutional: Well developed, well nourished, no acute distress, non-toxic appearance. [] HENT: Normocephalic, atraumatic, bilateral external ears normal, oropharynx moist, no oral exudates, nose normal. [] Eyes: PERRLA, EOMI, conjunctiva normal, no discharge. [] Neck: Normal range of motion, no tenderness, supple, no stridor. [] Cardiovascular:Heart rate regular rhythm, no murmur [] Lungs & Thorax: Short of air on arrival to the ED, O2 sats at 85% on room air, placed on oxygen, O2 sats on 99 %. Diminished breath sounds to posterior lungs bases on arrival. Abdomen: Rounded abdomen suspicious for bursitis. Bowel sounds normal, soft, no tenderness, no masses, no pulsatile masses. [] Skin: Warm, dry, no erythema, no rash. [] Back: No tenderness, no CVA tenderness. [] Extremities: No tenderness, no cyanosis, no clubbing, ROM intact, +1 edema noted to the left lower extremity, trace edema to the right lower extremity. Neurologic: Alert and oriented X 3, normal motor function, normal sensory function, no focal deficits noted. [] Psychologic: Affect normal, judgement normal, mood normal. [] (MARIAH BROWN APRN) Current Patient Data Vital Signs Vital Signs Date Time Temp Pulse Resp B/P (MAP) Pulse Ox O2 Delivery O2 Flow Rate FiO2 06/11/18 18:19 90 20 128/57 (80) 99 06/11/18 17:21 Nasal Cannula 2.0 06/11/18 16:00 97.4 97.4 (CARLA MYLES MD) Lab Values Laboratory Tests Test 06/11/18 16:20 06/11/18 17:55 White Blood Count 3.7 x10^3/uL (4.0-11.0) L Red Blood Count 3.14 x10^6/uL (3.50-5.40) L Hemoglobin 7.9 g/dL (12.0-15.5) L Hematocrit 24.8 % (36.0-47.0) L Mean Corpuscular Volume 79 fL (79-100) Mean Corpuscular Hemoglobin 25 pg (25-35) Mean Corpuscular Hemoglobin Concent 32 g/dL (31-37) Red Cell Distribution Width 20.5 % (11.5-14.5) H Platelet Count 260 x10^3/uL (140-400) Neutrophils (%) (Auto) 83 % (31-73) H Lymphocytes (%) (Auto) 8 % (24-48) L Monocytes (%) (Auto) 7 % (0-9) Eosinophils (%) (Auto) 1 % (0-3) Basophils (%) (Auto) 1 % (0-3) Neutrophils # (Auto) 3.1 x10^3uL (1.8-7.7) Lymphocytes # (Auto) 0.3 x10^3/uL (1.0-4.8) L Monocytes # (Auto) 0.2 x10^3/uL (0.0-1.1) Eosinophils # (Auto) 0.1 x10^3/uL (0.0-0.7) Basophils # (Auto) 0.0 x10^3/uL (0.0-0.2) Segmented Neutrophils % 86 % (35-66) H Lymphocytes % 9 % (24-48) L Monocytes % 5 % (0-10) Toxic Vacuolation Slight Platelet Estimate Adequate (ADEQUATE) Hypochromasia Slight Poikilocytosis Slight Anisocytosis Mod Microcytosis Slight [place] Cells Occ Schistocytes Occ Prothrombin Time 13.8 SEC (11.7-14.0) Prothrombin Time INR 1.1 (0.8-1.1) PTT 25 SEC (24-38) D-Dimer (Roxanne) 12.84 ug/mlFEU (0.00-0.50) H Sodium Level 135 mmol/L (136-145) L Potassium Level 4.7 mmol/L (3.5-5.1) Chloride Level 101 mmol/L (98-107) Carbon Dioxide Level 23 mmol/L (21-32) Anion Gap 11 (6-14) Blood Urea Nitrogen 35 mg/dL (7-20) H Creatinine 1.1 mg/dL (0.6-1.0) H Estimated GFR (Cockcroft-Gault) 58.4 BUN/Creatinine Ratio 32 (6-20) H Glucose Level 306 mg/dL (70-99) H Calcium Level 9.0 mg/dL (8.5-10.1) Magnesium Level 1.7 mg/dL (1.8-2.4) L Total Bilirubin 0.4 mg/dL (0.2-1.0) Aspartate Amino Transferase (AST) 45 U/L (15-37) H Alanine Aminotransferase (ALT) 25 U/L (14-59) Alkaline Phosphatase 98 U/L (46-116) Creatine Kinase 129 U/L (26-192) Creatine Kinase MB (Mass) 1.1 ng/mL (0.0-3.6) Creatine Kinase MB Relative Index 0.9 % (0-4) Troponin I Quantitative < 0.017 ng/mL (0.000-0.055) KI-Eyj-K-Type Natriuretic Peptide 228 pg/mL (0-449) Total Protein 6.7 g/dL (6.4-8.2) Albumin 2.6 g/dL (3.4-5.0) L Albumin/Globulin Ratio 0.6 (1.0-1.7) L Lipase 169 U/L (73-393) Thyroid Stimulating Hormone (TSH) 2.133 uIU/mL (0.358-3.74) Urine Collection Type Unknown Urine Color Yellow Urine Clarity Clear Urine pH 5.5 Urine Specific [place] >=1.030 Urine Protein Negative mg/dL (NEG-TRACE) Urine Glucose (UA) Negative mg/dL (NEG) Urine Ketones (Stick) Negative mg/dL (NEG) Urine Blood Negative (NEG) Urine Nitrite Negative (NEG) Urine Bilirubin Negative (NEG) Urine Urobilinogen Dipstick 0.2 mg/dL (0.2 mg/dL) Urine Leukocyte Esterase Trace (NEG) Urine RBC Rare /HPF (0-2) Urine WBC Occ /HPF (0-4) Urine Squamous Epithelial Cells Mod /LPF Urine Bacteria Few /HPF (0-FEW) Laboratory Tests 06/11/18 16:20 Laboratory Tests 06/11/18 16:20 (CARLA MYLES MD) EKG EKG 16:[address] Beckman sinus rhythm HR 88 no STEMI[] (MARIAH BROWN APRN) Radiology/Procedures Radiology/Procedures []PROCEDURE: CT CHEST ABD PELVIS W/CONTRAST Examination: CT CHEST ABD PELVIS W/CONTRAST History: BREAST CA, [id number] 75ML, PRIOR SENT, PRIOR REPORT SENT Comparison/Correlation: 02/27/2018 CT chest abdomen and pelvis with contrast Findings: Axial images of the chest, abdomen, and pelvis were obtained following IV contrast. Sagittal and coronal reformatted images were provided. Oral contrast was administered. Right thyroidectomy noted. Moderate-sized right pleural effusion is present. Moderate to large sized left pleural effusion noted. Complete right lower lobe atelectatic consolidation is present. Near complete left lower lobe atelectatic consolidation is evident. Calcified granuloma involves the right lateral mid thoracic level. Minimal lingular atelectasis adjacent to the major fissure noted. Calcified right hilar lymph node evident. Soft tissue density which may represent scarring involving the left axillary region is unchanged. No enlarged thoracic lymph nodes. Calcified granulomas involve the liver and spleen. Moderate to large amount of ascites noted. Gallbladder is mildly distended. No biliary dilatation. Right renal cysts are noted. Pancreas and adrenal glands are normal. Left kidney is unremarkable. Duodenal diverticulum is small in size. Moderate quantity of stool involves the colon. Urinary bladder is unremarkable. Calcified fibroid involvement of the uterus is present. Extensive mixed sclerotic and lytic bony metastatic disease again seen. Midthoracic vertebral body height loss is similar to previous exam. Compression deformity of the L4 superior endplate again seen. Impression: Bilateral pleural effusions are new in the interval development of moderate to large size with significant lower lobe atelectatic consolidation. Extensive bony metastases again seen. PQRS Compliance Statement: One or more of the following individualized dose reduction techniques were utilized for this examination: 1. Automated exposure control 2. Adjustment of the mA and/or kV according to patient size 3. Use of iterative reconstruction technique Electronically signed by: Benitez Russo MD (06/11/2018 2:33 PM) [facility] DICTATED and SIGNED BY: BENITEZ RUSSO MD DATE: 06/11/18 1433 (MARIAH BROWN APRN) Course & Med Decision Making Course & Med Decision Making Pertinent Labs and Imaging studies reviewed. (See chart for details) This is a 78-year-old female patient presenting to the ED today complaining of increased shortness of breath, abdominal swelling, and bilateral lower extremity swelling. Patient is a poor historian, has history of breast cancer with metastases to the bones. Was somewhat seen as an outpatient and had "scans" done. Her oxygen saturation was 85% on room air on arrival to the ED, she was put on oxygen 2 L, O2 sats came up to 97% Labs were ordered, CBC with a WBC of 3.1, hemoglobin 7.9, hematocrit 24.8, creatinine 1.1, BUN 35, glucose 306 and he Is normal. AST 45. Her d-dimer was 12.84-this was ordered before I learned patient had already had a CTA chest and abdomen with pelvic done today with IV contrast. Results from the CTA chest and abdomen with pelvic were noted for-Moderate to large amount of ascites noted.Gallbladder is mildly distended. No biliary dilatation. Moderate quantity of stool involves the colon.Extensive mixed sclerotic and lytic bony metastatic disease again seen. Midthoracic vertebral body height loss is similar to previous exam. Compression deformity of the L4 superior endplate again seen. Bilateral pleural effusions are new in the interval development of moderate to large size with significant lower lobe atelectatic consolidation. 18:[address] Smith who accepted patient for admission. Routine consult placed for GI, oncologist, escalator service mechanic, and general surgery for the distended gallbladder. (MARIAH BROWN APRN) Course & Med Decision Making Staff Physician Addendum: I was working in the ER during the course of this patient's visit. I was available for consultation as needed, but I was not directly involved in the care of this patient. (CARLA MYLES MD) Dragon Disclaimer Dragon Disclaimer This electronic medical record was generated, in whole or in part, using a voice recognition dictation system. (MARIAH BROWN APRN) Departure Departure Impression: Primary Impression: Metastatic breast cancer Additional Impressions: Ascites Cholelithiasis Pleural effusion Shortness of breath Disposition: ADMITTED INPATIENT Condition: STABLE Referrals: AILEEN MARTINS (PCP) Problem Qualifiers Additional Impressions: Ascites Ascites type: other type Qualified Codes: R18.8 - Other ascites Cholelithiasis Cholelithiasis location: gallbladder Cholecystitis presence: without cholecystitis Biliary obstruction: without biliary obstruction Qualified Codes: K80.20 - Calculus of gallbladder without cholecystitis without obstruction MARIAH BROWN APRN Jun 11, 2018 18:49 CARLA MYLES MD Jun 12, 2018 04:20
[2018-06-11] MEDS ORDERED: ACETAMINOPHEN 325 MG TABLET. PO PRN (19:15)
[2018-06-11] MEDS ORDERED: DEXTROSE 50% 25 GM / 50ML DISP.SYRIN. IV PRN ×2 (19:15→20:45)
[2018-06-11] MEDS ORDERED: ONDANSETRON PF 4 MG/2 ML VIAL. IV PRN (19:15)
[2018-06-11] MEDS ORDERED: MORPHINE SULFATE 4 MG/ML VIAL. IV PRN (19:15)
[2018-06-11] MEDS ORDERED: INSULIN REGULAR 100 UNIT/ML 3ML VIAL. IV ONE (19:30)
[2018-06-11] MEDS ORDERED: ALBUTEROL SULFATE 2.5 MG/3 ML NEBU. INH PRN (20:45)
[2018-06-11] MEDS ORDERED: HYDROcodone/APAP 5/325MG 1 TAB TABLET PO PRN (20:45)
[2018-06-11] MEDS: NAPROXEN 500 MG TABLET PO SCH (21:00)
--- NOTE | 2018-06-11 21:28 | PDOC1 ---
History and Physical Date of Admission Date of Admission DATE: 06/11/18 TIME: 21:23 Identification/Chief Complaint Chief Complaint short of breath Source Source: Caregiver, Chart review, Patient History of Present Illness History of Present Illness Ms. Hobson is a 78 year old female admit with worsening dyspena, and short of breath, new orthopnea. 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 Millan/ maame, worsening shortness of breath especially on exertion, but has been noted for days to a week of exertion dyspnea. She has new abd dsitention and feels tight. some LE edema, she reports normal for her. no new pain Past Medical History Past Medical History with history of diabetes type 2, hypertension, breast cancer with metastatic is to the bones Social History Smoke: No ALCOHOL: none Current Problem List Problem List Problems Medical Problems: (1) Ascites Status: Acute (2) Cholelithiasis Status: Acute (3) Pleural effusion Status: Acute (4) Shortness of breath Status: Acute Current Medications Current Medications Current Medications Albuterol/ Ipratropium (Duoneb) 3 ml 1X ONCE NEB Last administered on 06/11/18at 17:19; Start 06/11/18 at 17:15; Stop 06/11/18 at 17:16; Status DC Ondansetron HCl (Zofran) 4 mg PRN Q8HRS PRN IV NAUSEA/VOMITING; Start 06/11/18 at 19:15; Stop 06/12/18 at 19:14 Morphine Sulfate (Morphine Sulfate) 4 mg PRN Q2HR PRN IV PAIN; Start 06/11/18 at 19:15; Stop 06/12/18 at 19:14 Acetaminophen (Tylenol) 650 mg PRN Q4HRS PRN PO FEVER; Start 06/11/18 at 19:15; Stop 06/12/18 at 19:14 Dextrose (Dextrose 50%-Water Syringe) 12.5 gm PRN Q15MIN PRN IV SEE COMMENTS; Start 06/11/18 at 19:15; Status Cancel Insulin Human Regular (HumuLIN R VIAL) 5 unit 1X ONCE IV Last administered on 06/11/18at 20:11; Start 06/11/18 at 19:30; Stop 06/11/18 at 19:31; Status DC Albuterol Sulfate (Ventolin Neb Soln) 2.5 mg PRN Q6HRS PRN INH SHORTNESS OF BREATH; Start 06/11/18 at 20:45 Atorvastatin Calcium (Lipitor) 20 mg DAILY PO ; Start 06/12/18 at 09:00 Calcium Carbonate/ Glycine (Oscal) 500 mg DAILY PO ; Start 06/12/18 at 09:00 Furosemide (Lasix) 40 mg DAILY PO ; Start 06/12/18 at 09:00 Acetaminophen/ Hydrocodone Bitart (Lortab 5/325) 1 tab PRN Q6HRS PRN PO PAIN; Start 06/11/18 at 20:45 Losartan Potassium (Cozaar) 50 mg DAILY PO ; Start 06/12/18 at 09:00 Vitamin D (Vitamin D3) 2,000 unit DAILY PO ; Start 06/12/18 at 09:00 Diltiazem HCl (Cardizem 24hr Cd) 240 mg BID PO ; Start 06/11/18 at 21:00 Non-Formulary Medication (Everolimus (Afinitor)) 10 mg DAILY PO ; Start 06/12/18 at 09:00; Status UNV Non-Formulary Medication (Exemestane (Aromasin)) 25 mg DAILY PO ; Start 06/12/18 at 09:00; Status UNV Labetalol HCl (Trandate) 200 mg BID PO ; Start 06/11/18 at 21:00 Non-Formulary Medication (Metformin Hcl ) 1,000 mg BIDWMEALS PO ; Start 06/12/18 at 08:00; Status UNV Montelukast Sodium (Singulair) 10 mg QHS PO ; Start 06/11/18 at 21:00 Naproxen (Naprosyn) 500 mg BID PO ; Start 06/11/18 at 21:00 Insulin Human Lispro (HumaLOG) 0-7 UNITS TIDWMEALS SQ ; Start 06/12/18 at 08:00 Dextrose (Dextrose 50%-Water Syringe) 12.5 gm PRN Q15MIN PRN IV SEE COMMENTS; Start 06/11/18 at 20:45 Active Scripts Active Reported Mag-Oxide (Magnesium Oxide) 400 Mg Tablet Tradjenta (Linagliptin) 5 Mg Tablet Tradjenta (Linagliptin) 5 Mg Tablet Lantus Solostar (Insulin Glargine,Hum.rec.anlog) 100 Unit/1 Ml Insuln.pen Diltiazem 24Hr Cd (Diltiazem HCl) 240 Mg Cap.er.24h Losartan Potassium 50 Mg Tablet Metformin Hcl Er (Metformin Hcl) 500 Mg Tab.er.24h Klor-Con 10 (Potassium Chloride) 10 Meq Tablet.er Atorvastatin Calcium 20 Mg Tablet Furosemide 40 Mg Tablet Mirtazapine 30 Mg Tablet Afinitor (Everolimus) 2.5 Mg Tablet Afinitor (Everolimus) 10 Mg Tablet 10 Mg PO DAILY Aromasin (Exemestane) 25 Mg Tablet 25 Mg PO DAILY Xgeva (Denosumab) 120 Mg/1.7 Ml Vial 120 Mg SQ MONTHLY Aleve (Naproxen Sodium) 220 Mg Tablet 440 Mg PO BID Vitamin D3 (Cholecalciferol (Vitamin D3)) 2,000 Unit Tablet 2,000 Unit PO DAILY Calcium (Calcium Carbonate) 500 Mg Tablet 500 Mg PO DAILY Cardizem Cd (Diltiazem Hcl) 240 Mg Cap.er.24h 1 Cap PO BID Hydrocodone-Apap 5-325 (Hydrocodone Bit/Acetaminophen) 1 Each Tablet 1 Tab PO PRN Q6HRS PRN Metformin Hcl 1,000 Mg Tablet 1,000 Mg PO BIDWMEALS Proair Hfa Inhaler (Albuterol Sulfate) 8.5 Gm Hfa.aer.ad 1 Puff INH PRN Q6HRS PRN Losartan Potassium 50 Mg Tablet 50 Mg PO DAILY Montelukast Sodium Tablet (Montelukast Sodium) 10 Mg Tablet 10 Mg PO HS Labetalol Hcl 200 Mg Tablet 200 Mg PO BID Allergies Allergies: Coded Allergies: No Known Drug Allergies (Unverified , 05/24/18) ROS General: YES: Chills, Fatigue; No: Night Sweats, Malaise, Appetite, Other PSYCHOLOGICAL ROS: YES: Sleep disturbances; No: Anxiety, Behavioral Disorder, Concentration difficultie, Decreased libid o, Depression, Disorientation, Hallucinations, Hostility, Irritablity, Memory difficulties, Mood Swings, Obsessive thoughts, Physical abuse, Sexual abuse, Suicidal ideation, Other Eyes: No Blurry vision, No Decreased vision, No Double vision, No Dry eyes, No Excessive tearing, No Eye Pain, No Itchy Eyes, No Loss of vision, No Photophobia, No Scotomata, No Uses contacts, No Uses glasses, No Other HEENT: No: Heacaches, Visual Changes, Hearing change, Nasal congestion, Nasal discharge, Oral lesions, Sinus pain, Sore Throat, Epistaxis, Sneezing, Snoring, Tinnitus, Vertigo, Vocal changes, Other Respiratory: YES: Orthopnea, Shortness of breath, SOB with excertion, Tachypnea , Other; No: Cough, Hemoptysis, Pleuritic Pain, Sputum Changes, Stridor, Wheezing Cardiovascular: yes Chest Pain; No Palpitations, No Orthopnea, No Paroxysmal Noc. Dyspnea, No Edema, No Lt Headedness, No Other Gastrointestinal: Yes Nausea; No Vomiting, No Abdominal Pain, No Diarrhea, No Constipation, No Melena, No Hematochezia, No Other Genitourinary: No Dysuria, No Frequency, No Incontinence, No Hematuria, No Retention, No Discharge, No Urgency, No Pain, No Flank Pain, No Other, No , No , No , No , No , No , No Musculoskeletal: Yes Joint Stiffness; No Gait Disturbance, No Joint Pain, No Joint Swelling, No Muscle Pain, No Muscular Weakness, No Pain In:, No Swelling In:, No Other Neurological: No Behavorial Changes, No Bowel/Bladder ControlChng, No Confu jennifer, No Dizziness, No Gait Disturbance, No Headaches, No Impaired Coord/balance, No Memory Loss, No Numbness/Tingling, No Seizures, No Speech Problems, No Tremors, No Visual Changes, No Weakness, No Other Skin: Yes Dry Skin; No Eczema, No Hair Changes, No Lumps, No Mole Changes, No Mottling, No Nail Changes, No Pruritus, No Rash, No Skin Lesion Changes, No Other, No Acne Physical Exam General: Alert, Oriented X3, Cooperative, mild distress HEENT: EOMI Lungs: Clear to auscultation, Other (limited vol, dull bases, slight egophony with talking) Heart: S1S2 Abdomen: Normal bowel sounds, Soft, Other (ascites) Extremities: No clubbing, Normal pulses, Other (tr pedal edema) Neuro: Normal speech, Normal tone, Cranial nerves 3-12 NL Psych/Mental Status: Mental status NL, Mood NL Vitals Vitals Vital Signs Date Time Temp Pulse Resp B/P (MAP) Pulse Ox O2 Delivery O2 Flow Rate FiO2 06/11/18 20:19 93 20 121/54 (76) 96 Nasal Cannula 2.0 06/11/18 16:00 97.4 97.4 Labs Labs Laboratory Tests Test 06/11/18 16:20 06/11/18 17:55 06/11/18 18:50 06/11/18 21:10 White Blood Count 3.7 x10^3/uL (4.0-11.0) Red Blood Count 3.14 x10^6/uL (3.50-5.40) Hemoglobin 7.9 g/dL (12.0-15.5) Hematocrit 24.8 % (36.0-47.0) Mean Corpuscular Volume 79 fL (79-100) Mean Corpuscular Hemoglobin 25 pg (25-35) Mean Corpuscular Hemoglobin Concent 32 g/dL (31-37) Red Cell Distribution Width 20.5 % (11.5-14.5) Platelet Count 260 x10^3/uL (140-400) Neutrophils (%) (Auto) 83 % (31-73) Lymphocytes (%) (Auto) 8 % (24-48) Monocytes (%) (Auto) 7 % (0-9) Eosinophils (%) (Auto) 1 % (0-3) Basophils (%) (Auto) 1 % (0-3) Neutrophils # (Auto) 3.1 x10^3uL (1.8-7.7) Lymphocytes # (Auto) 0.3 x10^3/uL (1.0-4.8) Monocytes # (Auto) 0.2 x10^3/uL (0.0-1.1) Eosinophils # (Auto) 0.1 x10^3/uL (0.0-0.7) Basophils # (Auto) 0.0 x10^3/uL (0.0-0.2) Segmented Neutrophils % 86 % (35-66) Lymphocytes % 9 % (24-48) Monocytes % 5 % (0-10) Toxic Vacuolation Slight Platelet Estimate Adequate (ADEQUATE) Hypochromasia Slight Poikilocytosis Slight Anisocytosis Mod Microcytosis Slight Missy Cells Occ Schistocytes Occ Prothrombin Time 13.8 SEC (11.7-14.0) Prothromb Time International Ratio 1.1 (0.8-1.1) Activated Partial Thromboplast Time 25 SEC (24-38) D-Dimer (Roxanne) 12.84 ug/mlFEU (0.00-0.50) Sodium Level 135 mmol/L (136-145) Potassium Level 4.7 mmol/L (3.5-5.1) Chloride Level 101 mmol/L (98-107) Carbon Dioxide Level 23 mmol/L (21-32) Anion Gap 11 (6-14) Blood Urea Nitrogen 35 mg/dL (7-20) Creatinine 1.1 mg/dL (0.6-1.0) Estimated GFR (Cockcroft-Gault) 58.4 BUN/Creatinine Ratio 32 (6-20) Glucose Level 306 mg/dL (70-99) Calcium Level 9.0 mg/dL (8.5-10.1) Magnesium Level 1.7 mg/dL (1.8-2.4) Total Bilirubin 0.4 mg/dL (0.2-1.0) Aspartate Amino Transf (AST/SGOT) 45 U/L (15-37) Alanine Aminotransferase (ALT/SGPT) 25 U/L (14-59) Alkaline Phosphatase 98 U/L (46-116) Creatine Kinase 129 U/L (26-192) Creatine Kinase MB (Mass) 1.1 ng/mL (0.0-3.6) Creatine Kinase MB Relative Index 0.9 % (0-4) Troponin I Quantitative < 0.017 ng/mL (0.000-0.055) JI-Zjo-F-Type Natriuretic Peptide 228 pg/mL (0-449) Total Protein 6.7 g/dL (6.4-8.2) Albumin 2.6 g/dL (3.4-5.0) Albumin/Globulin Ratio 0.6 (1.0-1.7) Lipase 169 U/L (73-393) Thyroid Stimulating Hormone (TSH) 2.133 uIU/mL (0.358-3.74) Urine Collection Type Unknown Urine Color Yellow Urine Clarity Clear Urine pH 5.5 Urine Specific Clayton >=1.030 Urine Protein Negative mg/dL (NEG-TRACE) Urine Glucose (UA) Negative mg/dL (NEG) Urine Ketones (Stick) Negative mg/dL (NEG) Urine Blood Negative (NEG) Urine Nitrite Negative (NEG) Urine Bilirubin Negative (NEG) Urine Urobilinogen Dipstick 0.2 mg/dL (0.2 mg/dL) Urine Leukocyte Esterase Trace (NEG) Urine RBC Rare /HPF (0-2) Urine WBC Occ /HPF (0-4) Urine Squamous Epithelial Cells Mod /LPF Urine Bacteria Few /HPF (0-FEW) Lactic Acid Level 0.7 mmol/L (0.4-2.0) Glucose (Fingerstick) 204 mg/dL (70-99) Laboratory Tests Test 06/11/18 16:20 06/11/18 17:55 06/11/18 18:50 06/11/18 21:10 White Blood Count 3.7 x10^3/uL (4.0-11.0) Red Blood Count 3.14 x10^6/uL (3.50-5.40) Hemoglobin 7.9 g/dL (12.0-15.5) Hematocrit 24.8 % (36.0-47.0) Mean Corpuscular Volume 79 fL (79-100) Mean Corpuscular Hemoglobin 25 pg (25-35) Mean Corpuscular Hemoglobin Concent 32 g/dL (31-37) Red Cell Distribution Width 20.5 % (11.5-14.5) Platelet Count 260 x10^3/uL (140-400) Neutrophils (%) (Auto) 83 % (31-73) Lymphocytes (%) (Auto) 8 % (24-48) Monocytes (%) (Auto) 7 % (0-9) Eosinophils (%) (Auto) 1 % (0-3) Basophils (%) (Auto) 1 % (0-3) Neutrophils # (Auto) 3.1 x10^3uL (1.8-7.7) Lymphocytes # (Auto) 0.3 x10^3/uL (1.0-4.8) Monocytes # (Auto) 0.2 x10^3/uL (0.0-1.1) Eosinophils # (Auto) 0.1 x10^3/uL (0.0-0.7) Basophils # (Auto) 0.0 x10^3/uL (0.0-0.2) Segmented Neutrophils % 86 % (35-66) Lymphocytes % 9 % (24-48) Monocytes % 5 % (0-10) Toxic Vacuolation Slight Platelet Estimate Adequate (ADEQUATE) Hypochromasia Slight Poikilocytosis Slight Anisocytosis Mod Microcytosis Slight Bryant Cells Occ Schistocytes Occ Prothrombin Time 13.8 SEC (11.7-14.0) Prothromb Time International Ratio 1.1 (0.8-1.1) Activated Partial Thromboplast Time 25 SEC (24-38) D-Dimer (Roxanne) 12.84 ug/mlFEU (0.00-0.50) Sodium Level 135 mmol/L (136-145) Potassium Level 4.7 mmol/L (3.5-5.1) Chloride Level 101 mmol/L (98-107) Carbon Dioxide Level 23 mmol/L (21-32) Anion Gap 11 (6-14) Blood Urea Nitrogen 35 mg/dL (7-20) Creatinine 1.1 mg/dL (0.6-1.0) Estimated GFR (Cockcroft-Gault) 58.4 BUN/Creatinine Ratio 32 (6-20) Glucose Level 306 mg/dL (70-99) Calcium Level 9.0 mg/dL (8.5-10.1) Magnesium Level 1.7 mg/dL (1.8-2.4) Total Bilirubin 0.4 mg/dL (0.2-1.0) Aspartate Amino Transf (AST/SGOT) 45 U/L (15-37) Alanine Aminotransferase (ALT/SGPT) 25 U/L (14-59) Alkaline Phosphatase 98 U/L (46-116) Creatine Kinase 129 U/L (26-192) Creatine Kinase MB (Mass) 1.1 ng/mL (0.0-3.6) Creatine Kinase MB Relative Index 0.9 % (0-4) Troponin I Quantitative < 0.017 ng/mL (0.000-0.055) FE-Lrg-F-Type Natriuretic Peptide 228 pg/mL (0-449) Total Protein 6.7 g/dL (6.4-8.2) Albumin 2.6 g/dL (3.4-5.0) Albumin/Globulin Ratio 0.6 (1.0-1.7) Lipase 169 U/L (73-393) Thyroid Stimulating Hormone (TSH) 2.133 uIU/mL (0.358-3.74) Urine Collection Type Unknown Urine Color Yellow Urine Clarity Clear Urine pH 5.5 Urine Specific Clayton >=1.030 Urine Protein Negative mg/dL (NEG-TRACE) Urine Glucose (UA) Negative mg/dL (NEG) Urine Ketones (Stick) Negative mg/dL (NEG) Urine Blood Negative (NEG) Urine Nitrite Negative (NEG) Urine Bilirubin Negative (NEG) Urine Urobilinogen Dipstick 0.2 mg/dL (0.2 mg/dL) Urine Leukocyte Esterase Trace (NEG) Urine RBC Rare /HPF (0-2) Urine WBC Occ /HPF (0-4) Urine Squamous Epithelial Cells Mod /LPF Urine Bacteria Few /HPF (0-FEW) Lactic Acid Level 0.7 mmol/L (0.4-2.0) Glucose (Fingerstick) 204 mg/dL (70-99) VTE Prophylaxis Ordered VTE Prophylaxis Devices: Yes VTE Pharmacological Prophylaxi: No Assessment/Plan Assessment/Plan hypoxic respiratory failure metastatic breast cancer pleural effusion, poss. malignant or transudative, thoracentesis needed for dx Dm1, insulin, + SSI home meds chroinc htn, diastolic CHF, echo ALIX NORTON MD Jun 11, 2018 21:28
[2018-06-11] MEDS: LABETALOL HCL 200 MG TABLET PO SCH (22:10)
[2018-06-11] MEDS: MONTELUKAST SODIUM 10 MG TABLET. PO SCH (22:10)
[2018-06-11] MEDS: INSULIN GLARGINE 300 UNITS/3 ML INSULN.PEN. SQ SCH (22:15)
[2018-06-11 23:00] VITALS: BP 148/56
--- NOTE | 2018-06-11 23:19 | RAD ---
INDICATION : DISTENDED GB ON CT COMPARISON: CT from earlier same day TECHNIQUE: Multiple ultrasound images obtained through the abdomen in grayscale and color. FINDINGS: Liver: Unremarkable and partially visualized. Gallbladder: Gallbladder wall is 3 mm. Partially contracted. IVC: Partially distended at level of liver. Common Bile Duct: 7-8mm. Pancreas: Limited evaluation secondary to bowel gas Right Kidney: No hydronephrosis. Renal cyst measuring up to about 21 mm. Additionally there is a 18 mm complex cystic lesion with septation. Could also be 2 smaller cysts adjacent to each other. Small amount of ascites. Pleural effusions. IMPRESSION: 1. Gallbladder is partially contracted without definite stones. Common bile duct is borderline in size. 2. Cystic lesions of the right kidney. There is either a septated cyst or 2 smaller cysts adjacent to one another. This does appear increased in size when compared to 2017 and may be helpful to obtain a follow-up given the complexity to ensure no growth. 3. Ascites and bilateral pleural effusion. Electronically signed by: Francois Kuhn MD (06/11/2018 11:16 PM) [id number]
[2018-06-12] VITALS (10 sets, daily range): BP systolic 90–144; BP diastolic 35–61
[2018-06-12] MEDS: INSULIN LISPRO 300 UNITS/3 ML INSULN.PEN. SQ SCH ×3 (08:00→17:20)
--- NOTE | 2018-06-12 08:18 | RAD ---
2 view abdominal series and PA view chest x-ray Clinical indications: Abdominal distention. Shortness of breath. History of asthma. FINDINGS: Contrast is seen throughout the colon and rectum. No obstructive bowel pattern is seen. Air-fluid level is seen within the stomach. No other air-fluid levels are evident. No free air is seen. There are large bilateral pleural effusions with associated compressive atelectasis or consolidative infiltrates within both lung bases. This was seen on a chest CT dated June 11, 2018. Old calcified granulomatous disease is seen. No pneumothorax is evident. The heart size and mediastinum are unremarkable. There are sclerotic lesions of the pelvic bones which correspond to osseous metastatic disease seen on CT study. 2019. IMPRESSION: Large bilateral pleural effusions and associated bibasilar compressive atelectasis or consolidative lung infiltrates. Osseous metastatic disease. Electronically signed by: Reece Masterson MD (06/12/2018 8:16 AM) [id number]
[2018-06-12 08:22] LABS: BASO % 1 % (0-3); EOS # 0.1 x10^3/uL (0.0-0.7); EOS % 2 % (0-3); HEMATOCRIT 23.4 % (36.0-47.0); HEMOGLOBIN 7.7 g/dL (12.0-15.5); LYMPH # 0.3 x10^3/uL (1.0-4.8); LYMPH % 9 % (24-48); MEAN CORPUSCULAR HEMOGLOBIN 26 pg (25-35); MEAN CORPUSCULAR HGB CONC 33 g/dL (31-37); MEAN CORPUSCULAR VOLUME 78 fL (79-100); MONO # 0.3 x10^3/uL (0.0-1.1); MONO % 9 % (0-9); NEUT # 2.7 x10^3uL (1.8-7.7); NEUT % 79 % (31-73); PLATELET COUNT 242 x10^3/uL (140-400); RED BLOOD COUNT 3.01 x10^6/uL (3.50-5.40); RED CELL DISTRIBUTION WIDTH 20.3 % (11.5-14.5); WHITE BLOOD COUNT 3.5 x10^3/uL (4.0-11.0)
--- NOTE | 2018-06-12 08:32 | PDOC2 ---
CONSULT Date of Consult Date of Consult DATE: 06/12/18 TIME: 08:21 Reason for consultation: Shortness of breath, diarrhea Consult: Hematology oncology, Dr. Kenneth Car History of present illness: She is a 78-year-old female with breast cancer metastatic to the bones and diarrhea and shortness of breath. Shortness of breath has been chronic, ongoing since January, fluctuates, worsened with exertion, better w/ O2 2L in the ER, worsening over time, associated with diarrhea, malnutrition, edema, and she has been changed to exemestane and everolimus in March 2018. She is followed by Dr. Millan. At diagnosis of metastasis she began letrozole and ibrance February 2017 and w/ ongoing neutropenia it was changed to exemestane and everolimus in March 2018. Past medical history: Osteoporosis Osteoarthritis Breast cancer with bony metastasis noted in 2017 Pleural effusions Ascites History of left breast DCIS in 2001 Diabetes mellitus 2 Hypertension Hyperlipidemia Asthma GERD Seasonal allergies Depression Anorexia Past surgical history: Left breast biopsy Left breast lumpectomy Colonoscopy Thyroid nodule excision Bilateral cataract surgery Left axillary lymph node biopsy Allergies: No drug allergies Medications: See attached list Social history: Single, accompanied by Ms. Lau, quit smoking in 1991 Family history: Prostate cancer Review of systems: Back pain, GERD, depression, no mouth sores, diarrhea, early satiety, decreased taste, anorexia, fluid accumulation, weight loss, no headaches, shortness of breath, otherwise 10 point review of systems negative Physical exam: Vitals reviewed Gen.: thin elderly female in no acute distress, resting in bed HEENT: mucous membranes dry, head normocephalic atraumatic Neck: Supple, no lymphadenopathy Lymph nodes: No palpable lymphadenopathy neck or axilla Lungs: sl inc in work of breathing, NC in but on 0L, turned 2L on during exam Heart: Regular rate and rhythm Abdomen: Soft, nontender, distended Extremities: No cyanosis, + edema BLE and LUE (chronic LUE lymphedema) Skin: No obvious rashes or skin breakdown Neuro: Alert and oriented 3 Psych: Pleasant mood and affect Lab reviewed: White count 3.7, hemoglobin 7.9, platelets 260 MCV 79 PT and PTT normal D-dimer 12.8 Troponin negative ProBNP normal Lipase normal TSH normal AST 45 with normal T bili Creatinine 1.1 Lactic acid 0.7 Rads reviewed: CT chest abdomen and pelvis with new moderate to large effusions with atelectasis consolidative, and extensive bony metastases Bone scan with bony metastases including new disease in calvarium, femur, acetab ulum Ultrasound with gallbladder partial contraction without stones, common bile duct borderline size, right kidney cysts increased from 2017, and ascites and bilateral pleural effusions Case discussed with: Her [id number], son, pt, and records reviewed in [facility] and [facility], including labs and radiology, please see note for summary details. Assessment and Plan: She is a 78-year-old female with metastatic breast cancer to the bones and ascites and pleural effusions Metastatic breast cancer: Concern for progressive disease (on bone scan and fluid accumulation possibly) as well as side effects from treatment, will hold exemestane and everolimus, Dr. Millan will return in the morning, agree with tapping fluid and sending for cytology to assess for possible malignant effusions/ascites. Diarrhea: We'll offer Imodium and Lomotil when necessary Anorexia: Requesting Marinol will order as able, and nutrition has been consulted Elevated at sugars at home: Defer to primary Anemia with microcytosis: We'll check ferritin and iron panel Pleural effusions: Pulmonary has been consulted Ascites: GI has been consulted GB findings on imaging: General surgery has been consulted trouble sleeping: requesting home dose of remeron, added 7.5 mg hs to meds per request Thank you kindly for this consultation, and please don't hesitate to call with any further questions. Social History No ALCOHOL: none Current Problem List Problem List Problems Medical Problems: (1) Ascites Status: Acute (2) Cholelithiasis Status: Acute (3) Pleural effusion Status: Acute (4) Shortness of breath Status: Acute Current Medications Current Medications Current Medications Albuterol/ Ipratropium (Duoneb) 3 ml 1X ONCE NEB Last administered on 06/11/18at 17:19; Start 06/11/18 at 17:15; Stop 06/11/18 at 17:16; Status DC Ondansetron HCl (Zofran) 4 mg PRN Q8HRS PRN IV NAUSEA/VOMITING; Start 06/11/18 at 19:15; Stop 06/12/18 at 19:14 Morphine Sulfate (Morphine Sulfate) 4 mg PRN Q2HR PRN IV PAIN; Start 06/11/18 at 19:15; Stop 06/12/18 at 19:14 Acetaminophen (Tylenol) 650 mg PRN Q4HRS PRN PO FEVER; Start 06/11/18 at 19:15; Stop 06/12/18 at 19:14 Dextrose (Dextrose 50%-Water Syringe) 12.5 gm PRN Q15MIN PRN IV SEE COMMENTS; Start 06/11/18 at 19:15; Status Cancel Insulin Human Regular (HumuLIN R VIAL) 5 unit 1X ONCE IV Last administered on 06/11/18at 20:11; Start 06/11/18 at 19:30; Stop 06/11/18 at 19:31; Status DC Albuterol Sulfate (Ventolin Neb Soln) 2.5 mg PRN Q6HRS PRN INH SHORTNESS OF BREATH; Start 06/11/18 at 20:45 Atorvastatin Calcium (Lipitor) 20 mg DAILY PO ; Start 06/12/18 at 09:00 Calcium Carbonate/ Glycine (Oscal) 500 mg DAILY PO ; Start 06/12/18 at 09:00 Furosemide (Lasix) 40 mg DAILY PO ; Start 06/12/18 at 09:00 Acetaminophen/ Hydrocodone Bitart (Lortab 5/325) 1 tab PRN Q6HRS PRN PO PAIN; Start 06/11/18 at 20:45 Losartan Potassium (Cozaar) 50 mg DAILY PO ; Start 06/12/18 at 09:00 Vitamin D (Vitamin D3) 2,000 unit DAILY PO ; Start 06/12/18 at 09:00 Diltiazem HCl (Cardizem 24hr Cd) 240 mg BID PO ; Start 06/11/18 at 21:00 Non-Formulary Medication (Everolimus (Afinitor)) 10 mg DAILY PO ; Start 06/12/18 at 09:00; Status UNV Non-Formulary Medication (Exemestane (Aromasin)) 25 mg DAILY PO ; Start 06/12/18 at 09:00; Status UNV Labetalol HCl (Trandate) 200 mg BID PO Last administered on 06/11/18at 22:10; Start 06/11/18 at 21:00 Non-Formulary Medication (Metformin Hcl ) 1,000 mg BIDWMEALS PO ; Start 06/12/18 at 08:00; Status UNV Montelukast Sodium (Singulair) 10 mg QHS PO Last administered on 06/11/18at 22:10; Start 06/11/18 at 21:00 Naproxen (Naprosyn) 500 mg BID PO ; Start 06/11/18 at 21:00 Insulin Human Lispro (HumaLOG) 0-7 UNITS TIDWMEALS SQ ; Start 06/12/18 at 08:00 Dextrose (Dextrose 50%-Water Syringe) 12.5 gm PRN Q15MIN PRN IV SEE COMMENTS; Start 06/11/18 at 20:45 Insulin Glargine (Lantus) 7 units QHS SQ Last administered on 06/11/18at 22:15; Start 06/11/18 at 21:45 Active Scripts Active Reported Mag-Oxide (Magnesium Oxide) 400 Mg Tablet Tradjenta (Linagliptin) 5 Mg Tablet Tradjenta (Linagliptin) 5 Mg Tablet Lantus Solostar (Insulin Glargine,Hum.rec.anlog) 100 Unit/1 Ml Insuln.pen Diltiazem 24Hr Cd (Diltiazem HCl) 240 Mg Cap.er.24h Losartan Potassium 50 Mg Tablet Metformin Hcl Er (Metformin Hcl) 500 Mg Tab.er.24h Klor-Con 10 (Potassium Chloride) 10 Meq Tablet.er Atorvastatin Calcium 20 Mg Tablet Furosemide 40 Mg Tablet Mirtazapine 30 Mg Tablet Afinitor (Everolimus) 2.5 Mg Tablet Afinitor (Everolimus) 10 Mg Tablet 10 Mg PO DAILY Aromasin (Exemestane) 25 Mg Tablet 25 Mg PO DAILY Xgeva (Denosumab) 120 Mg/1.7 Ml Vial 120 Mg SQ MONTHLY Aleve (Naproxen Sodium) 220 Mg Tablet 440 Mg PO BID Vitamin D3 (Cholecalciferol (Vitamin D3)) 2,000 Unit Tablet 2,000 Unit PO DAILY Calcium (Calcium Carbonate) 500 Mg Tablet 500 Mg PO DAILY Cardizem Cd (Diltiazem Hcl) 240 Mg Cap.er.24h 1 Cap PO BID Hydrocodone-Apap 5-325 (Hydrocodone Bit/Acetaminophen) 1 Each Tablet 1 Tab P O PRN Q6HRS PRN Metformin Hcl 1,000 Mg Tablet 1,000 Mg PO BIDWMEALS Proair Hfa Inhaler (Albuterol Sulfate) 8.5 Gm Hfa.aer.ad 1 Puff INH PRN Q6HRS PRN Losartan Potassium 50 Mg Tablet 50 Mg PO DAILY Montelukast Sodium Tablet (Montelukast Sodium) 10 Mg Tablet 10 Mg PO HS Labetalol Hcl 200 Mg Tablet 200 Mg PO BID Allergies Allergies: Coded Allergies: No Known Drug Allergies (Unverified , 05/24/18) Vitals VITALS Vital Signs Date Time Temp Pulse Resp B/P (MAP) Pulse Ox O2 Delivery O2 Flow Rate FiO2 06/12/18 03:00 97.9 99 18 133/61 (85) 98 Room Air 97.9 06/11/18 22:40 2.0 Labs Labs Laboratory Tests Test 06/11/18 16:20 06/11/18 17:55 06/11/18 18:50 06/11/18 21:10 White Blood Count 3.7 x10^3/uL (4.0-11.0) Red Blood Count 3.14 x10^6/uL (3.50-5.40) Hemoglobin 7.9 g/dL (12.0-15.5) Hematocrit 24.8 % (36.0-47.0) Mean Corpuscular Volume 79 fL (79-100) Mean Corpuscular Hemoglobin 25 pg (25-35) Mean Corpuscular Hemoglobin Concent 32 g/dL (31-37) Red Cell Distribution Width 20.5 % (11.5-14.5) Platelet Count 260 x10^3/uL (140-400) Neutrophils (%) (Auto) 83 % (31-73) Lymphocytes (%) (Auto) 8 % (24-48) Monocytes (%) (Auto) 7 % (0-9) Eosinophils (%) (Auto) 1 % (0-3) Basophils (%) (Auto) 1 % (0-3) Neutrophils # (Auto) 3.1 x10^3uL (1.8-7.7) Lymphocytes # (Auto) 0.3 x10^3/uL (1.0-4.8) Monocytes # (Auto) 0.2 x10^3/uL (0.0-1.1) Eosinophils # (Auto) 0.1 x10^3/uL (0.0-0.7) Basophils # (Auto) 0.0 x10^3/uL (0.0-0.2) Segmented Neutrophils % 86 % (35-66) Lymphocytes % 9 % (24-48) Monocytes % 5 % (0-10) Toxic Vacuolation Slight Platelet Estimate Adequate (ADEQUATE) Hypochromasia Slight Poikilocytosis Slight Anisocytosis Mod Microcytosis Slight [place] Cells Occ Schistocytes Occ Prothrombin Time 13.8 SEC (11.7-14.0) Prothromb Time International Ratio 1.1 (0.8-1.1) Activated Partial Thromboplast Time 25 SEC (24-38) D-Dimer (Roxanne) 12.84 ug/mlFEU (0.00-0.50) Sodium Level 135 mmol/L (136-145) Potassium Level 4.7 mmol/L (3.5-5.1) Chloride Level 101 mmol/L (98-107) Carbon Dioxide Level 23 mmol/L (21-32) Anion Gap 11 (6-14) Blood Urea Nitrogen 35 mg/dL (7-20) Creatinine 1.1 mg/dL (0.6-1.0) Estimated GFR (Cockcroft-Gault) 58.4 BUN/Creatinine Ratio 32 (6-20) Glucose Level 306 mg/dL (70-99) Calcium Level 9.0 mg/dL (8.5-10.1) Magnesium Level 1.7 mg/dL (1.8-2.4) Total Bilirubin 0.4 mg/dL (0.2-1.0) Aspartate Amino Transf (AST/SGOT) 45 U/L (15-37) Alanine Aminotransferase (ALT/SGPT) 25 U/L (14-59) Alkaline Phosphatase 98 U/L (46-116) Creatine Kinase 129 U/L (26-192) Creatine Kinase MB (Mass) 1.1 ng/mL (0.0-3.6) Creatine Kinase MB Relative Index 0.9 % (0-4) Troponin I Quantitative < 0.017 ng/mL (0.000-0.055) NK-Mzz-F-Type Natriuretic Peptide 228 pg/mL (0-449) Total Protein 6.7 g/dL (6.4-8.2) Albumin 2.6 g/dL (3.4-5.0) Albumin/Globulin Ratio 0.6 (1.0-1.7) Lipase 169 U/L (73-393) Thyroid Stimulating Hormone (TSH) 2.133 uIU/mL (0.358-3.74) Urine Collection Type Unknown Urine Color Yellow Urine Clarity Clear Urine pH 5.5 Urine Specific [place] >=1.030 Urine Protein Negative mg/dL (NEG-TRACE) Urine Glucose (UA) Negative mg/dL (NEG) Urine Ketones (Stick) Negative mg/dL (NEG) Urine Blood Negative (NEG) Urine Nitrite Negative (NEG) Urine Bilirubin Negative (NEG) Urine Urobilinogen Dipstick 0.2 mg/dL (0.2 mg/dL) Urine Leukocyte Esterase Trace (NEG) Urine RBC Rare /HPF (0-2) Urine WBC Occ /HPF (0-4) Urine Squamous Epithelial Cells Mod /LPF Urine Bacteria Few /HPF (0-FEW) Lactic Acid Level 0.7 mmol/L (0.4-2.0) Glucose (Fingerstick) 204 mg/dL (70-99) Test 06/12/18 07:53 Glucose (Fingerstick) 161 mg/dL (70-99) Laboratory Tests Test 06/11/18 16:20 06/11/18 17:55 06/11/18 18:50 06/11/18 21:10 White Blood Count 3.7 x10^3/uL (4.0-11.0) Red Blood Count 3.14 x10^6/uL (3.50-5.40) Hemoglobin 7.9 g/dL (12.0-15.5) Hematocrit 24.8 % (36.0-47.0) Mean Corpuscular Volume 79 fL (79-100) Mean Corpuscular Hemoglobin 25 pg (25-35) Mean Corpuscular Hemoglobin Concent 32 g/dL (31-37) Red Cell Distribution Width 20.5 % (11.5-14.5) Platelet Count 260 x10^3/uL (140-400) Neutrophils (%) (Auto) 83 % (31-73) Lymphocytes (%) (Auto) 8 % (24-48) Monocytes (%) (Auto) 7 % (0-9) Eosinophils (%) (Auto) 1 % (0-3) Basophils (%) (Auto) 1 % (0-3) Neutrophils # (Auto) 3.1 x10^3uL (1.8-7.7) Lymphocytes # (Auto) 0.3 x10^3/uL (1.0-4.8) Monocytes # (Auto) 0.2 x10^3/uL (0.0-1.1) Eosinophils # (Auto) 0.1 x10^3/uL (0.0-0.7) Basophils # (Auto) 0.0 x10^3/uL (0.0-0.2) Segmented Neutrophils % 86 % (35-66) Lymphocytes % 9 % (24-48) Monocytes % 5 % (0-10) Toxic Vacuolation Slight Platelet Estimate Adequate (ADEQUATE) Hypochromasia Slight Poikilocytosis Slight Anisocytosis Mod Microcytosis Slight [place] Cells Occ Schistocytes Occ Prothrombin Time 13.8 SEC (11.7-14.0) Prothromb Time International Ratio 1.1 (0.8-1.1) Activated Partial Thromboplast Time 25 SEC (24-38) D-Dimer (Roxanne) 12.84 ug/mlFEU (0.00-0.50) Sodium Level 135 mmol/L (136-145) Potassium Level 4.7 mmol/L (3.5-5.1) Chloride Level 101 mmol/L (98-107) Carbon Dioxide Level 23 mmol/L (21-32) Anion Gap 11 (6-14) Blood Urea Nitrogen 35 mg/dL (7-20) Creatinine 1.1 mg/dL (0.6-1.0) Estimated GFR (Cockcroft-Gault) 58.4 BUN/Creatinine Ratio 32 (6-20) Glucose Level 306 mg/dL (70-99) Calcium Level 9.0 mg/dL (8.5-10.1) Magnesium Level 1.7 mg/dL (1.8-2.4) Total Bilirubin 0.4 mg/dL (0.2-1.0) Aspartate Amino Transf (AST/SGOT) 45 U/L (15-37) Alanine Aminotransferase (ALT/SGPT) 25 U/L (14-59) Alkaline Phosphatase 98 U/L (46-116) Creatine Kinase 129 U/L (26-192) Creatine Kinase MB (Mass) 1.1 ng/mL (0.0-3.6) Creatine Kinase MB Relative Index 0.9 % (0-4) Troponin I Quantitative < 0.017 ng/mL (0.000-0.055) HJ-Lsg-K-Type Natriuretic Peptide 228 pg/mL (0-449) Total Protein 6.7 g/dL (6.4-8.2) Albumin 2.6 g/dL (3.4-5.0) Albumin/Globulin Ratio 0.6 (1.0-1.7) Lipase 169 U/L (73-393) Thyroid Stimulating Hormone (TSH) 2.133 uIU/mL (0.358-3.74) Urine Collection Type Unknown Urine Color Yellow Urine Clarity Clear Urine pH 5.5 Urine Specific [place] >=1.030 Urine Protein Negative mg/dL (NEG-TRACE) Urine Glucose (UA) Negative mg/dL (NEG) Urine Ketones (Stick) Negative mg/dL (NEG) Urine Blood Negative (NEG) Urine Nitrite Negative (NEG) Urine Bilirubin Negative (NEG) Urine Urobilinogen Dipstick 0.2 mg/dL (0.2 mg/dL) Urine Leukocyte Esterase Trace (NEG) Urine RBC Rare /HPF (0-2) Urine WBC Occ /HPF (0-4) Urine Squamous Epithelial Cells Mod /LPF Urine Bacteria Few /HPF (0-FEW) Lactic Acid Level 0.7 mmol/L (0.4-2.0) Glucose (Fingerstick) 204 mg/dL (70-99) Test 06/12/18 07:53 Glucose (Fingerstick) 161 mg/dL (70-99) KENNETH CAR MD Jun 12, 2018 08:32
[2018-06-12] MEDS ORDERED: LOPERAMIDE 2 MG CAPSULE PO PRN (08:45)
[2018-06-12] MEDS ORDERED: DIPHENOXYLATE/ATROPINE TABLET. PO PRN (08:45)
[2018-06-12 08:51] LABS: ALBUMIN 2.5 g/dL (3.4-5.0); ALBUMIN/GLOBULIN RATIO 0.6 (1.0-1.7); CREATININE 1.2 mg/dL (0.6-1.0); GFR 52.9; POTASSIUM 3.9 mmol/L (3.5-5.1); TOTAL BILIRUBIN 0.3 mg/dL (0.2-1.0); TOTAL PROTEIN 6.4 g/dL (6.4-8.2)
[2018-06-12] MEDS ORDERED: EVEROLIMUS 10 MG PO SCH (09:00)
[2018-06-12] MEDS ORDERED: EXEMESTANE 25 MG PO SCH (09:00)
--- NOTE | 2018-06-12 09:10 | PDOC2 ---
GI CONSULT Reason For Consult: Ascites HPI: HPI: 78 y/o female w/ metastatic breast cancer w/ past radiation currently on chemo evaluated in ER for increasing SOA and admitted. Imaging shows bilateral pleural effusions and ascites. GI-valentino, decreased appetite and weight loss w/ chemo. H/o diarrhea - says it comes and goes, can occur 3 times daily, and is improved w/ Imodium. No h/o heartburn except for today w/ belching. No dysphagia. No constipation or bleeding. No previous EGD. Colonoscopy in 04/2018 for chronic diarrhea and abnormal CT (mild wall thickening of the sigmoid colon) showed non-bleeding internal hemorrhoids. Random biopsies showed focal mild active colitis (usually an in cidental finding). She was seen in follow-up on 06/04/18 w/ recommendation for mesalamine trial. No GB, liver, pancreas, or PUD history. No NSAIDs. PMH: PMH: metastatic breast cancer, HTN, asthma, HLD, DM, allergic rhinitis, depression, OA, osteoporosis left lumpectomy, thyroid nodule removal (benign), bilateral cataract removal, left axillary lymph node biopsy FH: Family History: Cancer (gastric, prostate, ovarian), DM, Hypertension Social History: Smoke: Quit ALCOHOL: none Drugs: None ROS: GEN: Denies fevers, chills, sweats HEENT: Denies blurred vision, sore throat CV: Denies chest pain RESP: +SOA GI: Per HPI : Denies hematuria, dysuria ENDO: +weight loss NEURO: Denies confusion, dizziness MSK: Denies weakness, joint pain/swelling SKIN: Denies jaundice, pruritus Vitals: Vitals: Vital Signs Date Time Temp Pulse Resp B/P (MAP) Pulse Ox O2 Delivery O2 Flow Rate FiO2 06/12/18 08:38 98 Nasal Cannula 2.0 06/12/18 07:00 98.4 99 14 144/59 (87) 98.4 Labs: Labs: Laboratory Tests Test 06/11/18 16:20 06/11/18 17:55 06/11/18 18:50 06/11/18 21:10 White Blood Count 3.7 x10^3/uL (4.0-11.0) Red Blood Count 3.14 x10^6/uL (3.50-5.40) Hemoglobin 7.9 g/dL (12.0-15.5) Hematocrit 24.8 % (36.0-47.0) Mean Corpuscular Volume 79 fL (79-100) Mean Corpuscular Hemoglobin 25 pg (25-35) Mean Corpuscular Hemoglobin Concent 32 g/dL (31-37) Red Cell Distribution Width 20.5 % (11.5-14.5) Platelet Count 260 x10^3/uL (140-400) Neutrophils (%) (Auto) 83 % (31-73) Lymphocytes (%) (Auto) 8 % (24-48) Monocytes (%) (Auto) 7 % (0-9) Eosinophils (%) (Auto) 1 % (0-3) Basophils (%) (Auto) 1 % (0-3) Neutrophils # (Auto) 3.1 x10^3uL (1.8-7.7) Lymphocytes # (Auto) 0.3 x10^3/uL (1.0-4.8) Monocytes # (Auto) 0.2 x10^3/uL (0.0-1.1) Eosinophils # (Auto) 0.1 x10^3/uL (0.0-0.7) Basophils # (Auto) 0.0 x10^3/uL (0.0-0.2) Segmented Neutrophils % 86 % (35-66) Lymphocytes % 9 % (24-48) Monocytes % 5 % (0-10) Toxic Vacuolation Slight Platelet Estimate Adequate (ADEQUATE) Hypochromasia Slight Poikilocytosis Slight Anisocytosis Mod Microcytosis Slight [place] Cells Occ Schistocytes Occ Prothrombin Time 13.8 SEC (11.7-14.0) Prothromb Time International Ratio 1.1 (0.8-1.1) Activated Partial Thromboplast Time 25 SEC (24-38) D-Dimer (Roxanne) 12.84 ug/mlFEU (0.00-0.50) Sodium Level 135 mmol/L (136-145) Potassium Level 4.7 mmol/L (3.5-5.1) Chloride Level 101 mmol/L (98-107) Carbon Dioxide Level 23 mmol/L (21-32) Anion Gap 11 (6-14) Blood Urea Nitrogen 35 mg/dL (7-20) Creatinine 1.1 mg/dL (0.6-1.0) Estimated GFR (Cockcroft-Gault) 58.4 BUN/Creatinine Ratio 32 (6-20) Glucose Level 306 mg/dL (70-99) Calcium Level 9.0 mg/dL (8.5-10.1) Magnesium Level 1.7 mg/dL (1.8-2.4) Total Bilirubin 0.4 mg/dL (0.2-1.0) Aspartate Amino Transf (AST/SGOT) 45 U/L (15-37) Alanine Aminotransferase (ALT/SGPT) 25 U/L (14-59) Alkaline Phosphatase 98 U/L (46-116) Creatine Kinase 129 U/L (26-192) Creatine Kinase MB (Mass) 1.1 ng/mL (0.0-3.6) Creatine Kinase MB Relative Index 0.9 % (0-4) Troponin I Quantitative < 0.017 ng/mL (0.000-0.055) ZN-Dir-H-Type Natriuretic Peptide 228 pg/mL (0-449) Total Protein 6.7 g/dL (6.4-8.2) Albumin 2.6 g/dL (3.4-5.0) Albumin/Globulin Ratio 0.6 (1.0-1.7) Lipase 169 U/L (73-393) Thyroid Stimulating Hormone (TSH) 2.133 uIU/mL (0.358-3.74) Urine Collection Type Unknown Urine Color Yellow Urine Clarity Clear Urine pH 5.5 Urine Specific [place] >=1.030 Urine Protein Negative mg/dL (NEG-TRACE) Urine Glucose (UA) Negative mg/dL (NEG) Urine Ketones (Stick) Negative mg/dL (NEG) Urine Blood Negative (NEG) Urine Nitrite Negative (NEG) Urine Bilirubin Negative (NEG) Urine Urobilinogen Dipstick 0.2 mg/dL (0.2 mg/dL) Urine Leukocyte Esterase Trace (NEG) Urine RBC Rare /HPF (0-2) Urine WBC Occ /HPF (0-4) Urine Squamous Epithelial Cells Mod /LPF Urine Bacteria Few /HPF (0-FEW) Lactic Acid Level 0.7 mmol/L (0.4-2.0) Glucose (Fingerstick) 204 mg/dL (70-99) Test 06/12/18 07:30 06/12/18 07:53 White Blood Count 3.5 x10^3/uL (4.0-11.0) Red Blood Count 3.01 x10^6/uL (3.50-5.40) Hemoglobin 7.7 g/dL (12.0-15.5) Hematocrit 23.4 % (36.0-47.0) Mean Corpuscular Volume 78 fL (79-100) Mean Corpuscular Hemoglobin 26 pg (25-35) Mean Corpuscular Hemoglobin Concent 33 g/dL (31-37) Red Cell Distribution Width 20.3 % (11.5-14.5) Platelet Count 242 x10^3/uL (140-400) Neutrophils (%) (Auto) 79 % (31-73) Lymphocytes (%) (Auto) 9 % (24-48) Monocytes (%) (Auto) 9 % (0-9) Eosinophils (%) (Auto) 2 % (0-3) Basophils (%) (Auto) 1 % (0-3) Neutrophils # (Auto) 2.7 x10^3uL (1.8-7.7) Lymphocytes # (Auto) 0.3 x10^3/uL (1.0-4.8) Monocytes # (Auto) 0.3 x10^3/uL (0.0-1.1) Eosinophils # (Auto) 0.1 x10^3/uL (0.0-0.7) Basophils # (Auto) 0.0 x10^3/uL (0.0-0.2) Glucose (Fingerstick) 161 mg/dL (70-99) Allergies: Coded Allergies: No Known Drug Allergies (Unverified , 05/24/18) Medications: Current Medications Medications (Trade) Dose Ordered Sig/Rodríguez Route PRN Reason Start Time Stop Time Status Last Admin Dose Admin Albuterol/ Ipratropium (Duoneb) 3 ml 1X ONCE NEB 06/11/18 17:15 06/11/18 17:16 DC 06/11/18 17:19 Insulin Human Regular (HumuLIN R VIAL) 5 unit 1X ONCE IV 06/11/18 19:30 06/11/18 19:31 DC 06/11/18 20:11 Albuterol Sulfate (Ventolin Neb Soln) 2.5 mg PRN Q6HRS PRN INH SHORTNESS OF BREATH 06/11/18 20:45 06/12/18 08:37 Labetalol HCl (Trandate) 200 mg BID PO 06/11/18 21:00 06/11/18 22:10 Montelukast Sodium (Singulair) 10 mg QHS PO 06/11/18 21:00 06/11/18 22:10 Insulin Glargine (Lantus) 7 units QHS SQ 06/11/18 21:45 06/11/18 22:15 Imaging: Imaging: Acute Abd Series IMPRESSION: Large bilateral pleural effusions and associated bibasilar compressive atelectasis or consolidative lung infiltrates. Osseous metastatic disease. Abd US FINDINGS: Liver: Unremarkable and partially visualized. Gallbladder: Gallbladder wall is 3 mm. Partially contracted. IVC: Partially distended at level of liver. Common Bile Duct: 7-8mm. Pancreas: Limited evaluation secondary to bowel gas Right Kidney: No hydronephrosis. Renal cyst measuring up to about 21 mm. Ad ditionally there is a 18 mm complex cystic lesion with septation. Could also be 2 smaller cysts adjacent to each other. Small amount of ascites. Pleural effusions. IMPRESSION: 1. Gallbladder is partially contracted without definite stones. Common bile duct is borderline in size. 2. Cystic lesions of the right kidney. There is either a septated cyst or 2 smaller cysts adjacent to one another. This does appear increased in size when compared to 2017 and may be helpful to obtain a follow-up given the complexity to ensure no growth. 3. Ascites and bilateral pleural effusion. PE: GEN: NAD, t hin HEENT: Atraumatic, PERRL LUNGS: diminished, NC HEART: RRR ABD: NABS, some distention/ascites EXTREMITY: BLE pitting edema SKIN: No rashes, no jaundice NEURO/PSYCH: A & O 3 A/P: A/P: SOA Metastatic breast cancer Pleural effusions, ascites Heartburn - new Chronic diarrhea CRC screen - 04/2018 as above Microcytic anemia - heme/onc following, iron profile c/w ACD Leukopenia, DARLENE -- Note plans for thoracentesis - will also ask for paracentesis w/ fluid studies. Start PPI. Note plans for Imodium and Lomotil PRN, also on Marinol. MILADYS POND Jun 12, 2018 09:10
[2018-06-12] MEDS: LABETALOL HCL 200 MG TABLET PO SCH ×2 (09:27→21:00)
[2018-06-12] MEDS: LOSARTAN POTASSIUM 50 MG TABLET. PO SCH (09:27)
[2018-06-12] MEDS ORDERED: ALBUMIN HUMAN 5% 500 ML IV ONE (09:30)
--- NOTE | 2018-06-12 09:55 | PDOC2 ---
EUSEBIOGERALD Rajesh [employer] 06/12/18 0955: CONSULT Date of Consult Date of Consult DATE: 06/12/18 TIME: 09:48 Reason for Consult Reason for Consult: distended GB Referring Physician Referring Physician: ER Identification/Chief Complaint Chief Complaint SOA Source Source: Chart review, Patient History of Present Illness Reason for Visit: Patient with metastatic adenocarcinoma of breast. Follows with Dr Millan Chronic issues with diarrhea Here with worsening SOA, abdominal distention CT findings of ascites, pleural effusions, gallbladder distention(however benign findings on sono) Past Medical History Cardiovascular: HTN, Hyperlipidemia Pulmonary: Asthma Heme/Onc: Cancer (metastatic breast ) Psych: Anxiety, Depression Endocrine: Diabetes Past Surgical History Past Surgical History: Mastectomy Family History Family History: Cancer (gastric, prostate ) Social History No ALCOHOL: none Lives: with Family Current Problem List Problem List Problems Medical Problems: (1) Ascites Status: Acute (2) Cholelithiasis Status: Acute (3) Pleural effusion Status: Acute (4) Shortness of breath Status: Acute Current Medications Current Medications Current Medications Albuterol/ Ipratropium (Duoneb) 3 ml 1X ONCE NEB Last administered on 06/11/18at 17:19; Start 06/11/18 at 17:15; Stop 06/11/18 at 17:16; Status DC Ondansetron HCl (Zofran) 4 mg PRN Q8HRS PRN IV NAUSEA/VOMITING; Start 06/11/18 at 19:15; Stop 06/12/18 at 19:14 Morphine Sulfate (Morphine Sulfate) 4 mg PRN Q2HR PRN IV PAIN; Start 06/11/18 at 19:15; Stop 06/12/18 at 19:14 Acetaminophen (Tylenol) 650 mg PRN Q4HRS PRN PO FEVER; Start 06/11/18 at 19:15; Stop 06/12/18 at 19:14 Dextrose (Dextrose 50%-Water Syringe) 12.5 gm PRN Q15MIN PRN IV SEE COMMENTS; Start 06/11/18 at 19:15; Status Cancel Insulin Human Regular (HumuLIN R VIAL) 5 unit 1X ONCE IV Last administered on 06/11/18at 20:11; Start 06/11/18 at 19:30; Stop 06/11/18 at 19:31; Status DC Albuterol Sulfate (Ventolin Neb Soln) 2.5 mg PRN Q6HRS PRN INH SHORTNESS OF BREATH Last administered on 06/12/18at 08:37; Start 06/11/18 at 20:45 Atorvastatin Calcium (Lipitor) 20 mg DAILY PO ; Start 06/12/18 at 09:00 Calcium Carbonate/ Glycine (Oscal) 500 mg DAILY PO ; Start 06/12/18 at 09:00 Furosemide (Lasix) 40 mg DAILY PO ; Start 06/12/18 at 09:00 Acetaminophen/ Hydrocodone Bitart (Lortab 5/325) 1 tab PRN Q6HRS PRN PO PAIN; Start 06/11/18 at 20:45 Losartan Potassium (Cozaar) 50 mg DAILY PO Last administered on 06/12/18at 09:27; Start 06/12/18 at 09:00 Vitamin D (Vitamin D3) 2,000 unit DAILY PO ; Start 06/12/18 at 09:00 Diltiazem HCl (Cardizem 24hr Cd) 240 mg BID PO Last administered on 06/12/18at 09:26; Start 06/11/18 at 21:00 Non-Formulary Medication (Everolimus (Afinitor)) 10 mg DAILY PO ; Start 06/12/18 at 09:00; Stop 06/12/18 at 09:00; Status DC Non-Formulary Medication (Exemestane (Aromasin)) 25 mg DAILY PO ; Start 06/12/18 at 09:00; Stop 06/12/18 at 09:00; Status DC Labetalol HCl (Trandate) 200 mg BID PO Last administered on 06/12/18at 09:27; Start 06/11/18 at 21:00 Non-Formulary Medication (Metformin Hcl ) 1,000 mg BIDWMEALS PO ; Start 06/12/18 at 08:00; Status UNV Montelukast Sodium (Singulair) 10 mg QHS PO Last administered on 06/11/18at 22:10; Start 06/11/18 at 21:00 Naproxen (Naprosyn) 500 mg BID PO ; Start 06/11/18 at 21:00 Insulin Human Lispro (HumaLOG) 0-7 UNITS TIDWMEALS SQ ; Start 06/12/18 at 08:00 Dextrose (Dextrose 50%-Water Syringe) 12.5 gm PRN Q15MIN PRN IV SEE COMMENTS; Start 06/11/18 at 20:45 Insulin Glargine (Lantus) 7 units QHS SQ Last administered on 06/11/18at 22:15; Start 06/11/18 at 21:45 Loperamide HCl (Imodium) 2 mg PRN Q15MIN PRN PO DIARRHEA (1st Choice); Start 06/12/18 at 08:45 Diphenoxylate HCl/ Atropine (Lomotil) 1 tab PRN QID PRN PO DIARRHEA (2nd Choice); Start 06/12/18 at 08:45 Dronabinol (Marinol) 5 mg BIDACLD PO ; Start 06/12/18 at 11:30 Albumin Human 500 ml @ 125 mls/hr 1X ONCE IV ; Start 06/12/18 at 09:30; Stop 06/12/18 at 13:29 Active Scripts Active Reported Mag-Oxide (Magnesium Oxide) 400 Mg Tablet Tradjenta (Linagliptin) 5 Mg Tablet Tradjenta (Linagliptin) 5 Mg Tablet Lantus Solostar (Insulin Glargine,Hum.rec.anlog) 100 Unit/1 Ml Insuln.pen Diltiazem 24Hr Cd (Diltiazem HCl) 240 Mg Cap.er.24h Losartan Potassium 50 Mg Tablet Metformin Hcl Er (Metformin Hcl) 500 Mg Tab.er.24h Klor-Con 10 (Potassium Chloride) 10 Meq Tablet.er Atorvastatin Calcium 20 Mg Tablet Furosemide 40 Mg Tablet Mirtazapine 30 Mg Tablet Afinitor (Everolimus) 2.5 Mg Tablet Afinitor (Everolimus) 10 Mg Tablet 10 Mg PO DAILY Aromasin (Exemestane) 25 Mg Tablet 25 Mg PO DAILY Xgeva (Denosumab) 120 Mg/1.7 Ml Vial 120 Mg SQ MONTHLY Aleve (Naproxen Sodium) 220 Mg Tablet 440 Mg PO BID Vitamin D3 (Cholecalciferol (Vitamin D3)) 2,000 Unit Tablet 2,000 Unit PO DAILY Calcium (Calcium Carbonate) 500 Mg Tablet 500 Mg PO DAILY Cardizem Cd (Diltiazem Hcl) 240 Mg Cap.er.24h 1 Cap PO BID Hydrocodone-Apap 5-325 (Hydrocodone Bit/Acetaminophen) 1 Each Tablet 1 Tab PO PRN Q6HRS PRN Metformin Hcl 1,000 Mg Tablet 1,000 Mg PO BIDWMEALS Proair Hfa Inhaler (Albuterol Sulfate) 8.5 Gm Hfa.aer.ad 1 Puff INH PRN Q6HRS PRN Losartan Potassium 50 Mg Tablet 50 Mg PO DAILY Montelukast Sodium Tablet (Montelukast Sodium) 10 Mg Tablet 10 Mg PO HS Labetalol Hcl 200 Mg Tablet 200 Mg PO BID Allergies Allergies: Coded Allergies: No Known Drug Allergies (Unverified , 05/24/18) ROS General: No: Chills, Other (fevers) PSYCHOLOGICAL ROS: No: Anxiety, Decreased libido Eyes: No Blurry vision, No Double vision Hematological and Lymphatic: No: Bleeding Problems, Blood Clots Respiratory: YES: Shortness of breath, SOB with excertion; No: Cough Cardiovascular: No Chest Pain, No Palpitations Gastrointestinal: Yes Nausea, Yes Diarrhea; No Vomiting Genitourinary: No Dysuria, No Hematuria Musculoskeletal: Yes Muscular Weakness; No Gait Disturbance Neurological: No Confusion, No Numbness/Tingling Skin: No Pruritus, No Rash Physical Exam General: Alert, Oriented X3, Cooperative, No acute distress HEENT: Atraumatic, PERRLA Lungs: Other (diminished ) Heart: Regular rate, Normal S1, Normal S2 Abdomen: Soft, Other (distended, nttp) Extremities: No clubbing, No cyanosis Skin: No rashes, No breakdown Neuro: Normal gait, Normal speech Psych/Mental Status: Mental status NL, Mood NL MUSCULOSKELETAL: No deformity, No swelling Vitals VITALS Vital Signs Date Time Temp Pulse Resp B/P (MAP) Pulse Ox O2 Delivery O2 Flow Rate FiO2 06/12/18 09:27 99 144/59 06/12/18 08:38 98 Nasal Cannula 2.0 06/12/18 07:00 98.4 14 98.4 Labs Labs Laboratory Tests Test 06/11/18 16:20 06/11/18 17:55 06/11/18 18:50 06/11/18 21:10 White Blood Count 3.7 x10^3/uL (4.0-11.0) Red Blood Count 3.14 x10^6/uL (3.50-5.40) Hemoglobin 7.9 g/dL (12.0-15.5) Hematocrit 24.8 % (36.0-47.0) Mean Corpuscular Volume 79 fL (79-100) Mean Corpuscular Hemoglobin 25 pg (25-35) Mean Corpuscular Hemoglobin Concent 32 g/dL (31-37) Red Cell Distribution Width 20.5 % (11.5-14.5) Platelet Count 260 x10^3/uL (140-400) Neutrophils (%) (Auto) 83 % (31-73) Lymphocytes (%) (Auto) 8 % (24-48) Monocytes (%) (Auto) 7 % (0-9) Eosinophils (%) (Auto) 1 % (0-3) Basophils (%) (Auto) 1 % (0-3) Neutrophils # (Auto) 3.1 x10^3uL (1.8-7.7) Lymphocytes # (Auto) 0.3 x10^3/uL (1.0-4.8) Monocytes # (Auto) 0.2 x10^3/uL (0.0-1.1) Eosinophils # (Auto) 0.1 x10^3/uL (0.0-0.7) Basophils # (Auto) 0.0 x10^3/uL (0.0-0.2) Segmented Neutrophils % 86 % (35-66) Lymphocytes % 9 % (24-48) Monocytes % 5 % (0-10) Toxic Vacuolation Slight Platelet Estimate Adequate (ADEQUATE) Hypochromasia Slight Poikilocytosis Slight Anisocytosis Mod Microcytosis Slight [place] Cells Occ Schistocytes Occ Prothrombin Time 13.8 SEC (11.7-14.0) Prothromb Time International Ratio 1.1 (0.8-1.1) Activated Partial Thromboplast Time 25 SEC (24-38) D-Dimer (Roxanne) 12.84 ug/mlFEU (0.00-0.50) Sodium Level 135 mmol/L (136-145) Potassium Level 4.7 mmol/L (3.5-5.1) Chloride Level 101 mmol/L (98-107) Carbon Dioxide Level 23 mmol/L (21-32) Anion Gap 11 (6-14) Blood Urea Nitrogen 35 mg/dL (7-20) Creatinine 1.1 mg/dL (0.6-1.0) Estimated GFR (Cockcroft-Gault) 58.4 BUN/Creatinine Ratio 32 (6-20) Glucose Level 306 mg/dL (70-99) Calcium Level 9.0 mg/dL (8.5-10.1) Magnesium Level 1.7 mg/dL (1.8-2.4) Total Bilirubin 0.4 mg/dL (0.2-1.0) Aspartate Amino Transf (AST/SGOT) 45 U/L (15-37) Alanine Aminotransferase (ALT/SGPT) 25 U/L (14-59) Alkaline Phosphatase 98 U/L (46-116) Creatine Kinase 129 U/L (26-192) Creatine Kinase MB (Mass) 1.1 ng/mL (0.0-3.6) Creatine Kinase MB Relative Index 0.9 % (0-4) Troponin I Quantitative < 0.017 ng/mL (0.000-0.055) XL-Pgx-N-Type Natriuretic Peptide 228 pg/mL (0-449) Total Protein 6.7 g/dL (6.4-8.2) Albumin 2.6 g/dL (3.4-5.0) Albumin/Globulin Ratio 0.6 (1.0-1.7) Lipase 169 U/L (73-393) Thyroid Stimulating Hormone (TSH) 2.133 uIU/mL (0.358-3.74) Urine Collection Type Unknown Urine Color Yellow Urine Clarity Clear Urine pH 5.5 Urine Specific [place] >=1.030 Urine Protein Negative mg/dL (NEG-TRACE) Urine Glucose (UA) Negative mg/dL (NEG) Urine Ketones (Stick) Negative mg/dL (NEG) Urine Blood Negative (NEG) Urine Nitrite Negative (NEG) Urine Bilirubin Negative (NEG) Urine Urobilinogen Dipstick 0.2 mg/dL (0.2 mg/dL) Urine Leukocyte Esterase Trace (NEG) Urine RBC Rare /HPF (0-2) Urine WBC Occ /HPF (0-4) Urine Squamous Epithelial Cells Mod /LPF Urine Bacteria Few /HPF (0-FEW) Lactic Acid Level 0.7 mmol/L (0.4-2.0) Glucose (Fingerstick) 204 mg/dL (70-99) Test 06/12/18 07:30 06/12/18 07:53 White Blood Count 3.5 x10^3/uL (4.0-11.0) Red Blood Count 3.01 x10^6/uL (3.50-5.40) Hemoglobin 7.7 g/dL (12.0-15.5) Hematocrit 23.4 % (36.0-47.0) Mean Corpuscular Volume 78 fL (79-100) Mean Corpuscular Hemoglobin 26 pg (25-35) Mean Corpuscular Hemoglobin Concent 33 g/dL (31-37) Red Cell Distribution Width 20.3 % (11.5-14.5) Platelet Count 242 x10^3/uL (140-400) Neutrophils (%) (Auto) 79 % (31-73) Lymphocytes (%) (Auto) 9 % (24-48) Monocytes (%) (Auto) 9 % (0-9) Eosinophils (%) (Auto) 2 % (0-3) Basophils (%) (Auto) 1 % (0-3) Neutrophils # (Auto) 2.7 x10^3uL (1.8-7.7) Lymphocytes # (Auto) 0.3 x10^3/uL (1.0-4.8) Monocytes # (Auto) 0.3 x10^3/uL (0.0-1.1) Eosinophils # (Auto) 0.1 x10^3/uL (0.0-0.7) Basophils # (Auto) 0.0 x10^3/uL (0.0-0.2) Sodium Level 140 mmol/L (136-145) Potassium Level 3.9 mmol/L (3.5-5.1) Chloride Level 104 mmol/L (98-107) Carbon Dioxide Level 25 mmol/L (21-32) Anion Gap 11 (6-14) Blood Urea Nitrogen 35 mg/dL (7-20) Creatinine 1.2 mg/dL (0.6-1.0) Estimated GFR (Cockcroft-Gault) 52.9 BUN/Creatinine Ratio 29 (6-20) Glucose Level 165 mg/dL (70-99) Calcium Level 9.0 mg/dL (8.5-10.1) Iron Level 28 ug/dL (50-170) Total Iron Binding Capacity 176 ug/dL (250-450) Iron Saturation 16 % (15-34) Ferritin 238 ng/mL (8-252) Total Bilirubin 0.3 mg/dL (0.2-1.0) Aspartate Amino Transf (AST/SGOT) 44 U/L (15-37) Alanine Aminotransferase (ALT/SGPT) 23 U/L (14-59) Alkaline Phosphatase 94 U/L (46-116) Total Protein 6.4 g/dL (6.4-8.2) Albumin 2.5 g/dL (3.4-5.0) Albumin/Globulin Ratio 0.6 (1.0-1.7) Glucose (Fingerstick) 161 mg/dL (70-99) Laboratory Tests Test 06/11/18 16:20 06/11/18 17:55 06/11/18 18:50 06/11/18 21:10 White Blood Count 3.7 x10^3/uL (4.0-11.0) Red Blood Count 3.14 x10^6/uL (3.50-5.40) Hemoglobin 7.9 g/dL (12.0-15.5) Hematocrit 24.8 % (36.0-47.0) Mean Corpuscular Volume 79 fL (79-100) Mean Corpuscular Hemoglobin 25 pg (25-35) Mean Corpuscular Hemoglobin Concent 32 g/dL (31-37) Red Cell Distribution Width 20.5 % (11.5-14.5) Platelet Count 260 x10^3/uL (140-400) Neutrophils (%) (Auto) 83 % (31-73) Lymphocytes (%) (Auto) 8 % (24-48) Monocytes (%) (Auto) 7 % (0-9) Eosinophils (%) (Auto) 1 % (0-3) Basophils (%) (Auto) 1 % (0-3) Neutrophils # (Auto) 3.1 x10^3uL (1.8-7.7) Lymphocytes # (Auto) 0.3 x10^3/uL (1.0-4.8) Monocytes # (Auto) 0.2 x10^3/uL (0.0-1.1) Eosinophils # (Auto) 0.1 x10^3/uL (0.0-0.7) Basophils # (Auto) 0.0 x10^3/uL (0.0-0.2) Segmented Neutrophils % 86 % (35-66) Lymphocytes % 9 % (24-48) Monocytes % 5 % (0-10) Toxic Vacuolation Slight Platelet Estimate Adequate (ADEQUATE) Hypochromasia Slight Poikilocytosis Slight Anisocytosis Mod Microcytosis Slight [place] Cells Occ Schistocytes Occ Prothrombin Time 13.8 SEC (11.7-14.0) Prothromb Time International Ratio 1.1 (0.8-1.1) Activated Partial Thromboplast Time 25 SEC (24-38) D-Dimer (Roxanne) 12.84 ug/mlFEU (0.00-0.50) Sodium Level 135 mmol/L (136-145) Potassium Level 4.7 mmol/L (3.5-5.1) Chloride Level 101 mmol/L (98-107) Carbon Dioxide Level 23 mmol/L (21-32) Anion Gap 11 (6-14) Blood Urea Nitrogen 35 mg/dL (7-20) Creatinine 1.1 mg/dL (0.6-1.0) Estimated GFR (Cockcroft-Gault) 58.4 BUN/Creatinine Ratio 32 (6-20) Glucose Level 306 mg/dL (70-99) Calcium Level 9.0 mg/dL (8.5-10.1) Magnesium Level 1.7 mg/dL (1.8-2.4) Total Bilirubin 0.4 mg/dL (0.2-1.0) Aspartate Amino Transf (AST/SGOT) 45 U/L (15-37) Alanine Aminotransferase (ALT/SGPT) 25 U/L (14-59) Alkaline Phosphatase 98 U/L (46-116) Creatine Kinase 129 U/L (26-192) Creatine Kinase MB (Mass) 1.1 ng/mL (0.0-3.6) Creatine Kinase MB Relative Index 0.9 % (0-4) Troponin I Quantitative < 0.017 ng/mL (0.000-0.055) DE-Qwm-V-Type Natriuretic Peptide 228 pg/mL (0-449) Total Protein 6.7 g/dL (6.4-8.2) Albumin 2.6 g/dL (3.4-5.0) Albumin/Globulin Ratio 0.6 (1.0-1.7) Lipase 169 U/L (73-393) Thyroid Stimulating Hormone (TSH) 2.133 uIU/mL (0.358-3.74) Urine Collection Type Unknown Urine Color Yellow Urine Clarity Clear Urine pH 5.5 Urine Specific [place] >=1.030 Urine Protein Negative mg/dL (NEG-TRACE) Urine Glucose (UA) Negative mg/dL (NEG) Urine Ketones (Stick) Negative mg/dL (NEG) Urine Blood Negative (NEG) Urine Nitrite Negative (NEG) Urine Bilirubin Negative (NEG) Urine Urobilinogen Dipstick 0.2 mg/dL (0.2 mg/dL) Urine Leukocyte Esterase Trace (NEG) Urine RBC Rare /HPF (0-2) Urine WBC Occ /HPF (0-4) Urine Squamous Epithelial Cells Mod /LPF Urine Bacteria Few /HPF (0-FEW) Lactic Acid Level 0.7 mmol/L (0.4-2.0) Glucose (Fingerstick) 204 mg/dL (70-99) Test 06/12/18 07:30 06/12/18 07:53 White Blood Count 3.5 x10^3/uL (4.0-11.0) Red Blood Count 3.01 x10^6/uL (3.50-5.40) Hemoglobin 7.7 g/dL (12.0-15.5) Hematocrit 23.4 % (36.0-47.0) Mean Corpuscular Volume 78 fL (79-100) Mean Corpuscular Hemoglobin 26 pg (25-35) Mean Corpuscular Hemoglobin Concent 33 g/dL (31-37) Red Cell Distribution Width 20.3 % (11.5-14.5) Platelet Count 242 x10^3/uL (140-400) Neutrophils (%) (Auto) 79 % (31-73) Lymphocytes (%) (Auto) 9 % (24-48) Monocytes (%) (Auto) 9 % (0-9) Eosinophils (%) (Auto) 2 % (0-3) Basophils (%) (Auto) 1 % (0-3) Neutrophils # (Auto) 2.7 x10^3uL (1.8-7.7) Lymphocytes # (Auto) 0.3 x10^3/uL (1.0-4.8) Monocytes # (Auto) 0.3 x10^3/uL (0.0-1.1) Eosinophils # (Auto) 0.1 x10^3/uL (0.0-0.7) Basophils # (Auto) 0.0 x10^3/uL (0.0-0.2) Sodium Level 140 mmol/L (136-145) Potassium Level 3.9 mmol/L (3.5-5.1) Chloride Level 104 mmol/L (98-107) Carbon Dioxide Level 25 mmol/L (21-32) Anion Gap 11 (6-14) Blood Urea Nitrogen 35 mg/dL (7-20) Creatinine 1.2 mg/dL (0.6-1.0) Estimated GFR (Cockcroft-Gault) 52.9 BUN/Creatinine Ratio 29 (6-20) Glucose Level 165 mg/dL (70-99) Calcium Level 9.0 mg/dL (8.5-10.1) Iron Level 28 ug/dL (50-170) Total Iron Binding Capacity 176 ug/dL (250-450) Iron Saturation 16 % (15-34) Ferritin 238 ng/mL (8-252) Total Bilirubin 0.3 mg/dL (0.2-1.0) Aspartate Amino Transf (AST/SGOT) 44 U/L (15-37) Alanine Aminotransferase (ALT/SGPT) 23 U/L (14-59) Alkaline Phosphatase 94 U/L (46-116) Total Protein 6.4 g/dL (6.4-8.2) Albumin 2.5 g/dL (3.4-5.0) Albumin/Globulin Ratio 0.6 (1.0-1.7) Glucose (Fingerstick) 161 mg/dL (70-99) Assessment/Plan Assessment/Plan metastatic breast cancer pleural effusions, ascites noted plans for thoracentesis, paracentesis today US of GB without any acute findings no surgical plans will review with MICHELLE Medellin MD 06/12/18 1331: CONSULT Assessment/Plan Assessment/Plan went by to see Ms Jazlyn she is out of her room, possibly in X ray for thoracentesis will see her later agree with above no acute surgical recs GERALD KAPLAN APRN Jun 12, 2018 09:55 MICHELLE AGUERO MD Jun 12, 2018 13:31
[2018-06-12] MEDS: CALCIUM CARBONATE 500 MG TABLET PO SCH (10:11)
[2018-06-12] MEDS: CHOLECALCIFEROL (VITAMIN D3) 1,000 UNIT TABLET PO SCH (10:12)
[2018-06-12] MEDS: NAPROXEN 500 MG TABLET PO SCH ×2 (10:12→21:18)
[2018-06-12] MEDS: FUROSEMIDE 40 MG TABLET. PO SCH (10:12)
[2018-06-12] MEDS: ATORVASTATIN CALCIUM 20 MG TABLET PO SCH (10:19)
--- NOTE | 2018-06-12 10:47 | PDOC ---
PROGRESS NOTES Chief Complaint Chief Complaint acute hypoxic respiratory failure, better metastatic breast cancer pleural effusion, poss. malignant or transudative, thoracentesis needed for dx Dm1, insulin, + SSI home meds chroinc htn, diastolic CHF, echo History of Present Illness History of Present Illness paracentesis and thora ordered for today, IR may determine if one is earlier, just need fluid for diagnosis, symptoms much better today cont current Onc following, she feels she has mult side effects from current PO Vitals Vitals Vital Signs Date Time Temp Pulse Resp B/P (MAP) Pulse Ox O2 Delivery O2 Flow Rate FiO2 06/12/18 09:27 99 144/59 06/12/18 08:38 98 Nasal Cannula 2.0 06/12/18 07:00 98.4 14 98.4 Physical Exam General: Alert, Oriented X3, Cooperative, No acute distress Heart: Regular rate, Normal S1, Normal S2 Abdomen: Soft, Other (distended, nttp) Extremities: No clubbing, No cyanosis Skin: No rashes, No breakdown Labs LABS Laboratory Tests Test 06/11/18 16:20 06/11/18 17:55 06/11/18 18:50 06/11/18 21:10 White Blood Count 3.7 x10^3/uL (4.0-11.0) Red Blood Count 3.14 x10^6/uL (3.50-5.40) Hemoglobin 7.9 g/dL (12.0-15.5) Hematocrit 24.8 % (36.0-47.0) Mean Corpuscular Volume 79 fL (79-100) Mean Corpuscular Hemoglobin 25 pg (25-35) Mean Corpuscular Hemoglobin Concent 32 g/dL (31-37) Red Cell Distribution Width 20.5 % (11.5-14.5) Platelet Count 260 x10^3/uL (140-400) Neutrophils (%) (Auto) 83 % (31-73) Lymphocytes (%) (Auto) 8 % (24-48) Monocytes (%) (Auto) 7 % (0-9) Eosinophils (%) (Auto) 1 % (0-3) Basophils (%) (Auto) 1 % (0-3) Neutrophils # (Auto) 3.1 x10^3uL (1.8-7.7) Lymphocytes # (Auto) 0.3 x10^3/uL (1.0-4.8) Monocytes # (Auto) 0.2 x10^3/uL (0.0-1.1) Eosinophils # (Auto) 0.1 x10^3/uL (0.0-0.7) Basophils # (Auto) 0.0 x10^3/uL (0.0-0.2) Segmented Neutrophils % 86 % (35-66) Lymphocytes % 9 % (24-48) Monocytes % 5 % (0-10) Toxic Vacuolation Slight Platelet Estimate Adequate (ADEQUATE) Hypochromasia Slight Poikilocytosis Slight Anisocytosis Mod Microcytosis Slight Boyce Cells Occ Schistocytes Occ Prothrombin Time 13.8 SEC (11.7-14.0) Prothromb Time International Ratio 1.1 (0.8-1.1) Activated Partial Thromboplast Time 25 SEC (24-38) D-Dimer (Roxanne) 12.84 ug/mlFEU (0.00-0.50) Sodium Level 135 mmol/L (136-145) Potassium Level 4.7 mmol/L (3.5-5.1) Chloride Level 101 mmol/L (98-107) Carbon Dioxide Level 23 mmol/L (21-32) Anion Gap 11 (6-14) Blood Urea Nitrogen 35 mg/dL (7-20) Creatinine 1.1 mg/dL (0.6-1.0) Estimated GFR (Cockcroft-Gault) 58.4 BUN/Creatinine Ratio 32 (6-20) Glucose Level 306 mg/dL (70-99) Calcium Level 9.0 mg/dL (8.5-10.1) Magnesium Level 1.7 mg/dL (1.8-2.4) Total Bilirubin 0.4 mg/dL (0.2-1.0) Aspartate Amino Transf (AST/SGOT) 45 U/L (15-37) Alanine Aminotransferase (ALT/SGPT) 25 U/L (14-59) Alkaline Phosphatase 98 U/L (46-116) Creatine Kinase 129 U/L (26-192) Creatine Kinase MB (Mass) 1.1 ng/mL (0.0-3.6) Creatine Kinase MB Relative Index 0.9 % (0-4) Troponin I Quantitative < 0.017 ng/mL (0.000-0.055) YE-Zez-L-Type Natriuretic Peptide 228 pg/mL (0-449) Total Protein 6.7 g/dL (6.4-8.2) Albumin 2.6 g/dL (3.4-5.0) Albumin/Globulin Ratio 0.6 (1.0-1.7) Lipase 169 U/L (73-393) Thyroid Stimulating Hormone (TSH) 2.133 uIU/mL (0.358-3.74) Urine Collection Type Unknown Urine Color Yellow Urine Clarity Clear Urine pH 5.5 Urine Specific [place] >=1.030 Urine Protein Negative mg/dL (NEG-TRACE) Urine Glucose (UA) Negative mg/dL (NEG) Urine Ketones (Stick) Negative mg/dL (NEG) Urine Blood Negative (NEG) Urine Nitrite Negative (NEG) Urine Bilirubin Negative (NEG) Urine Urobilinogen Dipstick 0.2 mg/dL (0.2 mg/dL) Urine Leukocyte Esterase Trace (NEG) Urine RBC Rare /HPF (0-2) Urine WBC Occ /HPF (0-4) Urine Squamous Epithelial Cells Mod /LPF Urine Bacteria Few /HPF (0-FEW) Lactic Acid Level 0.7 mmol/L (0.4-2.0) Glucose (Fingerstick) 204 mg/dL (70-99) Test 06/12/18 07:30 06/12/18 07:53 White Blood Count 3.5 x10^3/uL (4.0-11.0) Red Blood Count 3.01 x10^6/uL (3.50-5.40) Hemoglobin 7.7 g/dL (12.0-15.5) Hematocrit 23.4 % (36.0-47.0) Mean Corpuscular Volume 78 fL (79-100) Mean Corpuscular Hemoglobin 26 pg (25-35) Mean Corpuscular Hemoglobin Concent 33 g/dL (31-37) Red Cell Distribution Width 20.3 % (11.5-14.5) Platelet Count 242 x10^3/uL (140-400) Neutrophils (%) (Auto) 79 % (31-73) Lymphocytes (%) (Auto) 9 % (24-48) Monocytes (%) (Auto) 9 % (0-9) Eosinophils (%) (Auto) 2 % (0-3) Basophils (%) (Auto) 1 % (0-3) Neutrophils # (Auto) 2.7 x10^3uL (1.8-7.7) Lymphocytes # (Auto) 0.3 x10^3/uL (1.0-4.8) Monocytes # (Auto) 0.3 x10^3/uL (0.0-1.1) Eosinophils # (Auto) 0.1 x10^3/uL (0.0-0.7) Basophils # (Auto) 0.0 x10^3/uL (0.0-0.2) Sodium Level 140 mmol/L (136-145) Potassium Level 3.9 mmol/L (3.5-5.1) Chloride Level 104 mmol/L (98-107) Carbon Dioxide Level 25 mmol/L (21-32) Anion Gap 11 (6-14) Blood Urea Nitrogen 35 mg/dL (7-20) Creatinine 1.2 mg/dL (0.6-1.0) Estimated GFR (Cockcroft-Gault) 52.9 BUN/Creatinine Ratio 29 (6-20) Glucose Level 165 mg/dL (70-99) Calcium Level 9.0 mg/dL (8.5-10.1) Iron Level 28 ug/dL (50-170) Total Iron Binding Capacity 176 ug/dL (250-450) Iron Saturation 16 % (15-34) Ferritin 238 ng/mL (8-252) Total Bilirubin 0.3 mg/dL (0.2-1.0) Aspartate Amino Transf (AST/SGOT) 44 U/L (15-37) Alanine Aminotransferase (ALT/SGPT) 23 U/L (14-59) Alkaline Phosphatase 94 U/L (46-116) Total Protein 6.4 g/dL (6.4-8.2) Albumin 2.5 g/dL (3.4-5.0) Albumin/Globulin Ratio 0.6 (1.0-1.7) Glucose (Fingerstick) 161 mg/dL (70-99) Assessment and Plan Assessmemt and Plan Problems Medical Problems: (1) Ascites Status: Acute (2) Cholelithiasis Status: Acute (3) Pleural effusion Status: Acute (4) Shortness of breath Status: Acute Comment Review of Relevant I have reviewed the following items ptarica (where applicable) has been applied. Labs Laboratory Tests Test 06/11/18 16:20 06/11/18 17:55 06/11/18 18:50 06/11/18 21:10 White Blood Count 3.7 x10^3/uL (4.0-11.0) Red Blood Count 3.14 x10^6/uL (3.50-5.40) Hemoglobin 7.9 g/dL (12.0-15.5) Hematocrit 24.8 % (36.0-47.0) Mean Corpuscular Volume 79 fL (79-100) Mean Corpuscular Hemoglobin 25 pg (25-35) Mean Corpuscular Hemoglobin Concent 32 g/dL (31-37) Red Cell Distribution Width 20.5 % (11.5-14.5) Platelet Count 260 x10^3/uL (140-400) Neutrophils (%) (Auto) 83 % (31-73) Lymphocytes (%) (Auto) 8 % (24-48) Monocytes (%) (Auto) 7 % (0-9) Eosinophils (%) (Auto) 1 % (0-3) Basophils (%) (Auto) 1 % (0-3) Neutrophils # (Auto) 3.1 x10^3uL (1.8-7.7) Lymphocytes # (Auto) 0.3 x10^3/uL (1.0-4.8) Monocytes # (Auto) 0.2 x10^3/uL (0.0-1.1) Eosinophils # (Auto) 0.1 x10^3/uL (0.0-0.7) Basophils # (Auto) 0.0 x10^3/uL (0.0-0.2) Segmented Neutrophils % 86 % (35-66) Lymphocytes % 9 % (24-48) Monocytes % 5 % (0-10) Toxic Vacuolation Slight Platelet Estimate Adequate (ADEQUATE) Hypochromasia Slight Poikilocytosis Slight Anisocytosis Mod Microcytosis Slight Boyce Cells Occ Schistocytes Occ Prothrombin Time 13.8 SEC (11.7-14.0) Prothromb Time International Ratio 1.1 (0.8-1.1) Activated Partial Thromboplast Time 25 SEC (24-38) D-Dimer (Roxanne) 12.84 ug/mlFEU (0.00-0.50) Sodium Level 135 mmol/L (136-145) Potassium Level 4.7 mmol/L (3.5-5.1) Chloride Level 101 mmol/L (98-107) Carbon Dioxide Level 23 mmol/L (21-32) Anion Gap 11 (6-14) Blood Urea Nitrogen 35 mg/dL (7-20) Creatinine 1.1 mg/dL (0.6-1.0) Estimated GFR (Cockcroft-Gault) 58.4 BUN/Creatinine Ratio 32 (6-20) Glucose Level 306 mg/dL (70-99) Calcium Level 9.0 mg/dL (8.5-10.1) Magnesium Level 1.7 mg/dL (1.8-2.4) Total Bilirubin 0.4 mg/dL (0.2-1.0) Aspartate Amino Transf (AST/SGOT) 45 U/L (15-37) Alanine Aminotransferase (ALT/SGPT) 25 U/L (14-59) Alkaline Phosphatase 98 U/L (46-116) Creatine Kinase 129 U/L (26-192) Creatine Kinase MB (Mass) 1.1 ng/mL (0.0-3.6) Creatine Kinase MB Relative Index 0.9 % (0-4) Troponin I Quantitative < 0.017 ng/mL (0.000-0.055) IP-Bmj-X-Type Natriuretic Peptide 228 pg/mL (0-449) Total Protein 6.7 g/dL (6.4-8.2) Albumin 2.6 g/dL (3.4-5.0) Albumin/Globulin Ratio 0.6 (1.0-1.7) Lipase 169 U/L (73-393) Thyroid Stimulating Hormone (TSH) 2.133 uIU/mL (0.358-3.74) Urine Collection Type Unknown Urine Color Yellow Urine Clarity Clear Urine pH 5.5 Urine Specific [place] >=1.030 Urine Protein Negative mg/dL (NEG-TRACE) Urine Glucose (UA) Negative mg/dL (NEG) Urine Ketones (Stick) Negative mg/dL (NEG) Urine Blood Negative (NEG) Urine Nitrite Negative (NEG) Urine Bilirubin Negative (NEG) Urine Urobilinogen Dipstick 0.2 mg/dL (0.2 mg/dL) Urine Leukocyte Esterase Trace (NEG) Urine RBC Rare /HPF (0-2) Urine WBC Occ /HPF (0-4) Urine Squamous Epithelial Cells Mod /LPF Urine Bacteria Few /HPF (0-FEW) Lactic Acid Level 0.7 mmol/L (0.4-2.0) Glucose (Fingerstick) 204 mg/dL (70-99) Test 06/12/18 07:30 06/12/18 07:53 White Blood Count 3.5 x10^3/uL (4.0-11.0) Red Blood Count 3.01 x10^6/uL (3.50-5.40) Hemoglobin 7.7 g/dL (12.0-15.5) Hematocrit 23.4 % (36.0-47.0) Mean Corpuscular Volume 78 fL (79-100) Mean Corpuscular Hemoglobin 26 pg (25-35) Mean Corpuscular Hemoglobin Concent 33 g/dL (31-37) Red Cell Distribution Width 20.3 % (11.5-14.5) Platelet Count 242 x10^3/uL (140-400) Neutrophils (%) (Auto) 79 % (31-73) Lymphocytes (%) (Auto) 9 % (24-48) Monocytes (%) (Auto) 9 % (0-9) Eosinophils (%) (Auto) 2 % (0-3) Basophils (%) (Auto) 1 % (0-3) Neutrophils # (Auto) 2.7 x10^3uL (1.8-7.7) Lymphocytes # (Auto) 0.3 x10^3/uL (1.0-4.8) Monocytes # (Auto) 0.3 x10^3/uL (0.0-1.1) Eosinophils # (Auto) 0.1 x10^3/uL (0.0-0.7) Basophils # (Auto) 0.0 x10^3/uL (0.0-0.2) Sodium Level 140 mmol/L (136-145) Potassium Level 3.9 mmol/L (3.5-5.1) Chloride Level 104 mmol/L (98-107) Carbon Dioxide Level 25 mmol/L (21-32) Anion Gap 11 (6-14) Blood Urea Nitrogen 35 mg/dL (7-20) Creatinine 1.2 mg/dL (0.6-1.0) Estimated GFR (Cockcroft-Gault) 52.9 BUN/Creatinine Ratio 29 (6-20) Glucose Level 165 mg/dL (70-99) Calcium Level 9.0 mg/dL (8.5-10.1) Iron Level 28 ug/dL (50-170) Total Iron Binding Capacity 176 ug/dL (250-450) Iron Saturation 16 % (15-34) Ferritin 238 ng/mL (8-252) Total Bilirubin 0.3 mg/dL (0.2-1.0) Aspartate Amino Transf (AST/SGOT) 44 U/L (15-37) Alanine Aminotransferase (ALT/SGPT) 23 U/L (14-59) Alkaline Phosphatase 94 U/L (46-116) Total Protein 6.4 g/dL (6.4-8.2) Albumin 2.5 g/dL (3.4-5.0) Albumin/Globulin Ratio 0.6 (1.0-1.7) Glucose (Fingerstick) 161 mg/dL (70-99) Laboratory Tests Test 06/11/18 16:20 06/11/18 17:55 06/11/18 18:50 06/11/18 21:10 White Blood Count 3.7 x10^3/uL (4.0-11.0) Red Blood Count 3.14 x10^6/uL (3.50-5.40) Hemoglobin 7.9 g/dL (12.0-15.5) Hematocrit 24.8 % (36.0-47.0) Mean Corpuscular Volume 79 fL (79-100) Mean Corpuscular Hemoglobin 25 pg (25-35) Mean Corpuscular Hemoglobin Concent 32 g/dL (31-37) Red Cell Distribution Width 20.5 % (11.5-14.5) Platelet Count 260 x10^3/uL (140-400) Neutrophils (%) (Auto) 83 % (31-73) Lymphocytes (%) (Auto) 8 % (24-48) Monocytes (%) (Auto) 7 % (0-9) Eosinophils (%) (Auto) 1 % (0-3) Basophils (%) (Auto) 1 % (0-3) Neutrophils # (Auto) 3.1 x10^3uL (1.8-7.7) Lymphocytes # (Auto) 0.3 x10^3/uL (1.0-4.8) Monocytes # (Auto) 0.2 x10^3/uL (0.0-1.1) Eosinophils # (Auto) 0.1 x10^3/uL (0.0-0.7) Basophils # (Auto) 0.0 x10^3/uL (0.0-0.2) Segmented Neutrophils % 86 % (35-66) Lymphocytes % 9 % (24-48) Monocytes % 5 % (0-10) Toxic Vacuolation Slight Platelet Estimate Adequate (ADEQUATE) Hypochromasia Slight Poikilocytosis Slight Anisocytosis Mod Microcytosis Slight Boyce Cells Occ Schistocytes Occ Prothrombin Time 13.8 SEC (11.7-14.0) Prothromb Time International Ratio 1.1 (0.8-1.1) Activated Partial Thromboplast Time 25 SEC (24-38) D-Dimer (Roxanne) 12.84 ug/mlFEU (0.00-0.50) Sodium Level 135 mmol/L (136-145) Potassium Level 4.7 mmol/L (3.5-5.1) Chloride Level 101 mmol/L (98-107) Carbon Dioxide Level 23 mmol/L (21-32) Anion Gap 11 (6-14) Blood Urea Nitrogen 35 mg/dL (7-20) Creatinine 1.1 mg/dL (0.6-1.0) Estimated GFR (Cockcroft-Gault) 58.4 BUN/Creatinine Ratio 32 (6-20) Glucose Level 306 mg/dL (70-99) Calcium Level 9.0 mg/dL (8.5-10.1) Magnesium Level 1.7 mg/dL (1.8-2.4) Total Bilirubin 0.4 mg/dL (0.2-1.0) Aspartate Amino Transf (AST/SGOT) 45 U/L (15-37) Alanine Aminotransferase (ALT/SGPT) 25 U/L (14-59) Alkaline Phosphatase 98 U/L (46-116) Creatine Kinase 129 U/L (26-192) Creatine Kinase MB (Mass) 1.1 ng/mL (0.0-3.6) Creatine Kinase MB Relative Index 0.9 % (0-4) Troponin I Quantitative < 0.017 ng/mL (0.000-0.055) CN-Shu-W-Type Natriuretic Peptide 228 pg/mL (0-449) Total Protein 6.7 g/dL (6.4-8.2) Albumin 2.6 g/dL (3.4-5.0) Albumin/Globulin Ratio 0.6 (1.0-1.7) Lipase 169 U/L (73-393) Thyroid Stimulating Hormone (TSH) 2.133 uIU/mL (0.358-3.74) Urine Collection Type Unknown Urine Color Yellow Urine Clarity Clear Urine pH 5.5 Urine Specific [place] >=1.030 Urine Protein Negative mg/dL (NEG-TRACE) Urine Glucose (UA) Negative mg/dL (NEG) Urine Ketones (Stick) Negative mg/dL (NEG) Urine Blood Negative (NEG) Urine Nitrite Negative (NEG) Urine Bilirubin Negative (NEG) Urine Urobilinogen Dipstick 0.2 mg/dL (0.2 mg/dL) Urine Leukocyte Esterase Trace (NEG) Urine RBC Rare /HPF (0-2) Urine WBC Occ /HPF (0-4) Urine Squamous Epithelial Cells Mod /LPF Urine Bacteria Few /HPF (0-FEW) Lactic Acid Level 0.7 mmol/L (0.4-2.0) Glucose (Fingerstick) 204 mg/dL (70-99) Test 06/12/18 07:30 06/12/18 07:53 White Blood Count 3.5 x10^3/uL (4.0-11.0) Red Blood Count 3.01 x10^6/uL (3.50-5.40) Hemoglobin 7.7 g/dL (12.0-15.5) Hematocrit 23.4 % (36.0-47.0) Mean Corpuscular Volume 78 fL (79-100) Mean Corpuscular Hemoglobin 26 pg (25-35) Mean Corpuscular Hemoglobin Concent 33 g/dL (31-37) Red Cell Distribution Width 20.3 % (11.5-14.5) Platelet Count 242 x10^3/uL (140-400) Neutrophils (%) (Auto) 79 % (31-73) Lymphocytes (%) (Auto) 9 % (24-48) Monocytes (%) (Auto) 9 % (0-9) Eosinophils (%) (Auto) 2 % (0-3) Basophils (%) (Auto) 1 % (0-3) Neutrophils # (Auto) 2.7 x10^3uL (1.8-7.7) Lymphocytes # (Auto) 0.3 x10^3/uL (1.0-4.8) Monocytes # (Auto) 0.3 x10^3/uL (0.0-1.1) Eosinophils # (Auto) 0.1 x10^3/uL (0.0-0.7) Basophils # (Auto) 0.0 x10^3/uL (0.0-0.2) Sodium Level 140 mmol/L (136-145) Potassium Level 3.9 mmol/L (3.5-5.1) Chloride Level 104 mmol/L (98-107) Carbon Dioxide Level 25 mmol/L (21-32) Anion Gap 11 (6-14) Blood Urea Nitrogen 35 mg/dL (7-20) Creatinine 1.2 mg/dL (0.6-1.0) Estimated GFR (Cockcroft-Gault) 52.9 BUN/Creatinine Ratio 29 (6-20) Glucose Level 165 mg/dL (70-99) Calcium Level 9.0 mg/dL (8.5-10.1) Iron Level 28 ug/dL (50-170) Total Iron Binding Capacity 176 ug/dL (250-450) Iron Saturation 16 % (15-34) Ferritin 238 ng/mL (8-252) Total Bilirubin 0.3 mg/dL (0.2-1.0) Aspartate Amino Transf (AST/SGOT) 44 U/L (15-37) Alanine Aminotransferase (ALT/SGPT) 23 U/L (14-59) Alkaline Phosphatase 94 U/L (46-116) Total Protein 6.4 g/dL (6.4-8.2) Albumin 2.5 g/dL (3.4-5.0) Albumin/Globulin Ratio 0.6 (1.0-1.7) Glucose (Fingerstick) 161 mg/dL (70-99) Medications Current Medications Albuterol/ Ipratropium (Duoneb) 3 ml 1X ONCE NEB Last administered on 06/11/18at 17:19; Start 06/11/18 at 17:15; Stop 06/11/18 at 17:16; Status DC Ondansetron HCl (Zofran) 4 mg PRN Q8HRS PRN IV NAUSEA/VOMITING; Start 06/11/18 at 19:15; Stop 06/12/18 at 19:14 Morphine Sulfate (Morphine Sulfate) 4 mg PRN Q2HR PRN IV PAIN; Start 06/11/18 at 19:15; Stop 06/12/18 at 19:14 Acetaminophen (Tylenol) 650 mg PRN Q4HRS PRN PO FEVER; Start 06/11/18 at 19:15; Stop 06/12/18 at 19:14 Dextrose (Dextrose 50%-Water Syringe) 12.5 gm PRN Q15MIN PRN IV SEE COMMENTS; Start 06/11/18 at 19:15; Status Cancel Insulin Human Regular (HumuLIN R VIAL) 5 unit 1X ONCE IV Last administered on 06/11/18at 20:11; Start 06/11/18 at 19:30; Stop 06/11/18 at 19:31; Status DC Albuterol Sulfate (Ventolin Neb Soln) 2.5 mg PRN Q6HRS PRN INH SHORTNESS OF BREATH Last administered on 06/12/18at 08:37; Start 06/11/18 at 20:45 Atorvastatin Calcium (Lipitor) 20 mg DAILY PO Last administered on 06/12/18 10:19; Start 06/12/18 at 09:00 Calcium Carbonate/ Glycine (Oscal) 500 mg DAILY PO Last administered on 06/12/18at 10:11; Start 06/12/18 at 09:00 Furosemide (Lasix) 40 mg DAILY PO Last administered on 06/12/18at 10:12; Start 06/12/18 at 09:00 Acetaminophen/ Hydrocodone Bitart (Lortab 5/325) 1 tab PRN Q6HRS PRN PO PAIN; Start 06/11/18 at 20:45 Losartan Potassium (Cozaar) 50 mg DAILY PO Last administered on 06/12/18 09:27; Start 06/12/18 at 09:00 Vitamin D (Vitamin D3) 2,000 unit DAILY PO Last administered on 06/12/18at 10:12; Start 06/12/18 at 09:00 Diltiazem HCl (Cardizem 24hr Cd) 240 mg BID PO Last administered on 06/12/18at 09:26; Start 06/11/18 at 21:00 Non-Formulary Medication (Everolimus (Afinitor)) 10 mg DAILY PO ; Start 06/12/18 at 09:00; Stop 06/12/18 at 09:00; Status DC Non-Formulary Medication (Exemestane (Aromasin)) 25 mg DAILY PO ; Start 06/12/18 at 09:00; Stop 06/12/18 at 09:00; Status DC Labetalol HCl (Trandate) 200 mg BID PO Last administered on 06/12/18at 09:27; Start 06/11/18 at 21:00 Non-Formulary Medication (Metformin Hcl ) 1,000 mg BIDWMEALS PO ; Start 06/12/18 at 08:00; Status UNV Montelukast Sodium (Singulair) 10 mg QHS PO Last administered on 06/11/18at 22:10; Start 06/11/18 at 21:00 Naproxen (Naprosyn) 500 mg BID PO Last administered on 06/12/18at 10:12; Start 06/11/18 at 21:00 Insulin Human Lispro (HumaLOG) 0-7 UNITS TIDWMEALS SQ ; Start 06/12/18 at 08:00 Dextrose (Dextrose 50%-Water Syringe) 12.5 gm PRN Q15MIN PRN IV SEE COMMENTS; Start 06/11/18 at 20:45 Insulin Glargine (Lantus) 7 units QHS SQ Last administered on 06/11/18at 22:15; Start 06/11/18 at 21:45 Loperamide HCl (Imodium) 2 mg PRN Q15MIN PRN PO DIARRHEA (1st Choice); Start 06/12/18 at 08:45 Diphenoxylate HCl/ Atropine (Lomotil) 1 tab PRN QID PRN PO DIARRHEA (2nd Choice) Last administered on 06/12/18at 10:16; Start 06/12/18 at 08:45 Dronabinol (Marinol) 5 mg BIDACLD PO ; Start 06/12/18 at 11:30 Albumin Human 500 ml @ 125 mls/hr 1X ONCE IV ; Start 06/12/18 at 09:30; Stop 06/12/18 at 13:29 Pantoprazole Sodium (Protonix) 40 mg DAILYAC PO ; Start 06/12/18 at 11:30 Active Scripts Active Reported Mag-Oxide (Magnesium Oxide) 400 Mg Tablet Tradjenta (Linagliptin) 5 Mg Tablet Tradjenta (Linagliptin) 5 Mg Tablet Lantus Solostar (Insulin Glargine,Hum.rec.anlog) 100 Unit/1 Ml Insuln.pen Diltiazem 24Hr Cd (Diltiazem HCl) 240 Mg Cap.er.24h Losartan Potassium 50 Mg Tablet Metformin Hcl Er (Metformin Hcl) 500 Mg Tab.er.24h Klor-Con 10 (Potassium Chloride) 10 Meq Tablet.er Atorvastatin Calcium 20 Mg Tablet Furosemide 40 Mg Tablet Mirtazapine 30 Mg Tablet Afinitor (Everolimus) 2.5 Mg Tablet Afinitor (Everolimus) 10 Mg Tablet 10 Mg PO DAILY Aromasin (Exemestane) 25 Mg Tablet 25 Mg PO DAILY Xgeva (Denosumab) 120 Mg/1.7 Ml Vial 120 Mg SQ MONTHLY Aleve (Naproxen Sodium) 220 Mg Tablet 440 Mg PO BID Vitamin D3 (Cholecalciferol (Vitamin D3)) 2,000 Unit Tablet 2,000 Unit PO DAILY Calcium (Calcium Carbonate) 500 Mg Tablet 500 Mg PO DAILY Cardizem Cd (Diltiazem Hcl) 240 Mg Cap.er.24h 1 Cap PO BID Hydrocodone-Apap 5-325 (Hydrocodone Bit/Acetaminophen) 1 Each Tablet 1 Tab PO PRN Q6HRS PRN Metformin Hcl 1,000 Mg Tablet 1,000 Mg PO BIDWMEALS Proair Hfa Inhaler (Albuterol Sulfate) 8.5 Gm Hfa.aer.ad 1 Puff INH PRN Q6HRS PRN Losartan Potassium 50 Mg Tablet 50 Mg PO DAILY Montelukast Sodium Tablet (Montelukast Sodium) 10 Mg Tablet 10 Mg PO HS Labetalol Hcl 200 Mg Tablet 200 Mg PO BID Vitals/I & O Vital Sign - Last 24 Hours 06/11/18 06/11/18 06/11/18 06/11/18 16:00 16:33 17:21 17:49 Temp 97.4 97.4 Pulse 89 86 92 Resp 24 20 20 B/P (MAP) 131/58 (82) 125/59 (81) 137/63 (87) Pulse Ox 85 98 97 98 O2 Delivery Room Air Nasal Cannula Nasal Cannula O2 Flow Rate 2.0 2.0 06/11/18 06/11/18 06/11/1819 18:19 18:49 19:49 20:19 Pulse 90 94 94 93 Resp 20 20 20 20 B/P (MAP) 128/57 (80) 117/61 (79) 119/53 (75) 121/54 (76) Pulse Ox 99 98 96 96 O2 Delivery Nasal Cannula Nasal Cannula Nasal Cannula O2 Flow Rate 2.0 2.0 2.0 06/11/18 06/11/18 06/11/18 06/11/18 21:00 22:10 22:40 23:00 Temp 97.9 97.9 Pulse 93 93 102 Resp 17 B/P (MAP) 121/54 121/54 148/56 (86) Pulse Ox 96 O2 Delivery Nasal Cannula Room Air O2 Flow Rate 2.0 06/12/18 06/12/18 06/12/18 06/12/18 03:00 07:00 08:38 09:26 Temp 97.9 98.4 97.9 98.4 Pulse 99 99 99 Resp 18 14 B/P (MAP) 133/61 (85) 144/59 (87) 144/59 Pulse Ox 98 95 98 O2 Delivery Room Air Nasal Cannula Nasal Cannula O2 Flow Rate 2.0 2.0 06/12/18 06/12/18 09:27 09:27 Pulse 99 99 B/P (MAP) 144/59 144/59 Intake and Output 06/11/18 06/11/18 06/12/18 15:00 23:00 07:00 Intake Total 0 ml 0 ml Balance 0 ml 0 ml ALIX NORTON MD Jun 12, 2018 10:47
[2018-06-12] MEDS ORDERED: ZOLPIDEM 5 MG TABLET. PO PRN (11:30)
--- NOTE | 2018-06-12 13:50 | NUR ---
Patient to IR for Left Thoracentesis and paracentesis. Patient tolerated both procedures well with no issues, vitals stable. Left thoracentesis removed 1000ml and paracentesis removed 225ml. Sent fluid from both to lab per orders.
[2018-06-12 13:54] LABS: PH,BODY FLUID 7.44
--- NOTE | 2018-06-12 14:45 | RAD ---
Procedure: Ultrasound guided paracentesis Clinical Indication: 78-year-old with abdominal ascites Sedation: Local anesthesia only Antibiotics: None Fluoro Time: None Contrast: Not applicable Sterility: The procedure was performed in its entirety using appropriate elements of sterile technique. Consent: The procedure was explained in its entirety to the patient or the patients designated b2b sales representative by a member of the treatment team, including a discussion of the risks, benefits and commonly accepted alternatives to the procedure, as well as the expected consequences of no therapy whatsoever. Discussion of the risks included, but was not limited to, those that are most frequent and those that are rare but possibly severe or life-threatening, as well as the possibility of unforeseen complications. Technique and Findings: Following informed consent, the patient was prepped and draped in the usual sterile fashion. Ultrasound interrogation of the abdomen revealed abdominal ascites. A hard copy ultrasound image was recorded. 1% Lidocaine was used to achieve local anesthesia over the area of interest, and a 6 [place] [id number] catheter was advanced into the peritoneal cavity under ultrasound guidance. 255 cc of thin yellow ascites was then withdrawn. The catheter was removed and hemostasis was achieved with manual compression. Complications: No immediate Impression: 1. Ultrasound-guided paracentesis as described
--- NOTE | 2018-06-12 14:45 | RAD ---
Ultrasound Guided Thoracentesis, left side Indication: 78-year-old female with left pleural effusion Sedation: Local anesthesia only Sterility: The procedure was performed in its entirety using appropriate elements of sterile technique. Technique and Findings: Following informed consent, the patient was prepped and draped in the usual sterile fashion. Ultrasound interrogation of the area of interest was performed revealing the presence of a pleural fluid collection. 1% Lidocaine was used to achieve local anesthesia over the area of interest. A small dermatotomy was made and a 5F [id number] catheter was advanced under ultrasound guidance into the pleural space [id number] cc's of thin yellow fluid was removed. The catheter was then removed and hemostasis was achieved with manual compression. Impression: US thoracentesis as described.
--- NOTE | 2018-06-12 15:01 | CARD ---
MR#: [id number] Date of Study: 06/12/2018 Ordering Physician: ALIX NORTON, Referring Physician: ALIX NORTON, Tech: Brenda Carter APPROVED REPORT EXAM: Two-dimensional and M-mode echocardiogram with Doppler and color Doppler. Other Information Quality : AverageHR: 101bpm INDICATION Dyspnea Congestive Heart Failure 2D DIMENSIONS RVDd2.4 (2.9-3.5cm)Left Atrium(2D)3.0 (1.6-4.0cm) IVSd1.0 (0.7-1.1cm)Aortic Root(2D)2.5 (2.0-3.7cm) LVDd4.8 (3.9-5.9cm)LVOT Diameter1.9 (1.8-2.4cm) PWd0.7 (0.7-1.1cm)LVDs2.6 (2.5-4.0cm) FS (%) 46.0 %SV82.1 ml LVEF(%)77.3 (>50%) Aortic Valve AoV Peak Rajesh.158.8cm/sAoV VTI31.0cm AO Peak GR.10.1mmHgLVOT VTI 25.14cm AO Mean GR.5mmHg Mitral Valve MV E Ksettmcj19.7cm/sMV DECEL CIRM021bc MV A Rqoqmpcz694.6cm/sE/A Ratio0.8 TDI Lateral E' P. V9.59cm/sMedial E' P. V6.76cm/s E/Lateral E'8.2E/Medial E'11.6 Tricuspid Valve TR P. Iafksidd099jo/sRAP [id number] TR Peak Gr.[id number] Pulmonary Vein S1 Nryrjvlt37.1cm/sS2 Eeibrshr82.45cm/s D2 Xhlcxhyt89.5cm/sPVa [id number] LEFT VENTRICLE The left ventricle is normal size. There is normal left ventricular wall thickness. The left ventricu lar systolic function is normal. The Ejection Fraction is 60-65%. There is normal LV segmental wall m otion. Transmitral Doppler flow pattern is Grade I-abnormal relaxation pattern. RIGHT VENTRICLE The right ventricle is normal size. There is normal right ventricular wall thickness. The right ventr icular systolic function is normal. ATRIA The left atrium size is normal. The right atrium size is normal. The interatrial septum is intact wit h no evidence for an atrial septal defect or patent foramen ovale as noted on 2-D or Doppler imaging. AORTIC VALVE The aortic valve is thickened but opens well. Doppler and Color Flow revealed no significant aortic r egurgitation. There is no significant aortic valvular stenosis. MITRAL VALVE The mitral valve is thickened but opens well. There is no evidence of mitral valve prolapse. There is no mitral valve stenosis. Doppler and Color-flow revealed trace mitral regurgitation. TRICUSPID VALVE The tricuspid valve is normal in structure and function. Doppler and Color Flow revealed trace tricus pid regurgitation with an estimated PAP of 32 mmHg. There is no tricuspid valve stenosis. PULMONIC VALVE The pulmonic valve is not well visualized. Doppler and Color Flow revealed no pulmonic valvular regur gitation. GREAT VESSELS The aortic root is normal in size. The IVC is normal in size and collapses >50% with inspiration. PERICARDIAL EFFUSION There is moderate left pleural effusion. There is a trace circumferential pericardial effusion. Critical Notification Critical Value: No <Conclusion> The left ventricular systolic function is normal. The Ejection Fraction is 60-65%. There is normal LV segmental wall motion. Transmitral Doppler flow pattern is Grade I-abnormal relaxation pattern. Trace mitral regurgitation. Trace tricuspid regurgitation with an estimated PAP of 32 mmHg. There is a trace circumferential pericardial effusion. Signed by : Quintin Marin, Electronically Approved : 06/12/2018 15:01:33
--- NOTE | 2018-06-12 15:25 | PDOC ---
PULMONARY PROGRESS NOTES Vitals Vital Signs Date Time Temp Pulse Resp B/P (MAP) Pulse Ox O2 Delivery O2 Flow Rate FiO2 06/12/18 15:09 97.9 97 14 108/50 (69) 91 Nasal Cannula 2.0 97.9 Labs Laboratory Tests Test 06/11/18 16:20 06/11/18 17:55 06/11/18 18:50 06/11/18 21:10 White Blood Count 3.7 x10^3/uL (4.0-11.0) Red Blood Count 3.14 x10^6/uL (3.50-5.40) Hemoglobin 7.9 g/dL (12.0-15.5) Hematocrit 24.8 % (36.0-47.0) Mean Corpuscular Volume 79 fL (79-100) Mean Corpuscular Hemoglobin 25 pg (25-35) Mean Corpuscular Hemoglobin Concent 32 g/dL (31-37) Red Cell Distribution Width 20.5 % (11.5-14.5) Platelet Count 260 x10^3/uL (140-400) Neutrophils (%) (Auto) 83 % (31-73) Lymphocytes (%) (Auto) 8 % (24-48) Monocytes (%) (Auto) 7 % (0-9) Eosinophils (%) (Auto) 1 % (0-3) Basophils (%) (Auto) 1 % (0-3) Neutrophils # (Auto) 3.1 x10^3uL (1.8-7.7) Lymphocytes # (Auto) 0.3 x10^3/uL (1.0-4.8) Monocytes # (Auto) 0.2 x10^3/uL (0.0-1.1) Eosinophils # (Auto) 0.1 x10^3/uL (0.0-0.7) Basophils # (Auto) 0.0 x10^3/uL (0.0-0.2) Segmented Neutrophils % 86 % (35-66) Lymphocytes % 9 % (24-48) Monocytes % 5 % (0-10) Toxic Vacuolation Slight Platelet Estimate Adequate (ADEQUATE) Hypochromasia Slight Poikilocytosis Slight Anisocytosis Mod Microcytosis Slight Missy Cells Occ Schistocytes Occ Prothrombin Time 13.8 SEC (11.7-14.0) Prothromb Time International Ratio 1.1 (0.8-1.1) Activated Partial Thromboplast Time 25 SEC (24-38) D-Dimer (Roxanne) 12.84 ug/mlFEU (0.00-0.50) Sodium Level 135 mmol/L (136-145) Potassium Level 4.7 mmol/L (3.5-5.1) Chloride Level 101 mmol/L (98-107) Carbon Dioxide Level 23 mmol/L (21-32) Anion Gap 11 (6-14) Blood Urea Nitrogen 35 mg/dL (7-20) Creatinine 1.1 mg/dL (0.6-1.0) Estimated GFR (Cockcroft-Gault) 58.4 BUN/Creatinine Ratio 32 (6-20) Glucose Level 306 mg/dL (70-99) Calcium Level 9.0 mg/dL (8.5-10.1) Magnesium Level 1.7 mg/dL (1.8-2.4) Total Bilirubin 0.4 mg/dL (0.2-1.0) Aspartate Amino Transf (AST/SGOT) 45 U/L (15-37) Alanine Aminotransferase (ALT/SGPT) 25 U/L (14-59) Alkaline Phosphatase 98 U/L (46-116) Creatine Kinase 129 U/L (26-192) Creatine Kinase MB (Mass) 1.1 ng/mL (0.0-3.6) Creatine Kinase MB Relative Index 0.9 % (0-4) Troponin I Quantitative < 0.017 ng/mL (0.000-0.055) HN-Oxe-G-Type Natriuretic Peptide 228 pg/mL (0-449) Total Protein 6.7 g/dL (6.4-8.2) Albumin 2.6 g/dL (3.4-5.0) Albumin/Globulin Ratio 0.6 (1.0-1.7) Lipase 169 U/L (73-393) Thyroid Stimulating Hormone (TSH) 2.133 uIU/mL (0.358-3.74) Urine Collection Type Unknown Urine Color Yellow Urine Clarity Clear Urine pH 5.5 Urine Specific [place] >=1.030 Urine Protein Negative mg/dL (NEG-TRACE) Urine Glucose (UA) Negative mg/dL (NEG) Urine Ketones (Stick) Negative mg/dL (NEG) Urine Blood Negative (NEG) Urine Nitrite Negative (NEG) Urine Bilirubin Negative (NEG) Urine Urobilinogen Dipstick 0.2 mg/dL (0.2 mg/dL) Urine Leukocyte Esterase Trace (NEG) Urine RBC Rare /HPF (0-2) Urine WBC Occ /HPF (0-4) Urine Squamous Epithelial Cells Mod /LPF Urine Bacteria Few /HPF (0-FEW) Lactic Acid Level 0.7 mmol/L (0.4-2.0) Glucose (Fingerstick) 204 mg/dL (70-99) Test 06/12/18 07:30 06/12/18 07:53 06/12/18 10:57 06/12/18 13:30 White Blood Count 3.5 x10^3/uL (4.0-11.0) Red Blood Count 3.01 x10^6/uL (3.50-5.40) Hemoglobin 7.7 g/dL (12.0-15.5) Hematocrit 23.4 % (36.0-47.0) Mean Corpuscular Volume 78 fL (79-100) Mean Corpuscular Hemoglobin 26 pg (25-35) Mean Corpuscular Hemoglobin Concent 33 g/dL (31-37) Red Cell Distribution Width 20.3 % (11.5-14.5) Platelet Count 242 x10^3/uL (140-400) Neutrophils (%) (Auto) 79 % (31-73) Lymphocytes (%) (Auto) 9 % (24-48) Monocytes (%) (Auto) 9 % (0-9) Eosinophils (%) (Auto) 2 % (0-3) Basophils (%) (Auto) 1 % (0-3) Neutrophils # (Auto) 2.7 x10^3uL (1.8-7.7) Lymphocytes # (Auto) 0.3 x10^3/uL (1.0-4.8) Monocytes # (Auto) 0.3 x10^3/uL (0.0-1.1) Eosinophils # (Auto) 0.1 x10^3/uL (0.0-0.7) Basophils # (Auto) 0.0 x10^3/uL (0.0-0.2) Sodium Level 140 mmol/L (136-145) Potassium Level 3.9 mmol/L (3.5-5.1) Chloride Level 104 mmol/L (98-107) Carbon Dioxide Level 25 mmol/L (21-32) Anion Gap 11 (6-14) Blood Urea Nitrogen 35 mg/dL (7-20) Creatinine 1.2 mg/dL (0.6-1.0) Estimated GFR (Cockcroft-Gault) 52.9 BUN/Creatinine Ratio 29 (6-20) Glucose Level 165 mg/dL (70-99) Calcium Level 9.0 mg/dL (8.5-10.1) Iron Level 28 ug/dL (50-170) Total Iron Binding Capacity 176 ug/dL (250-450) Iron Saturation 16 % (15-34) Ferritin 238 ng/mL (8-252) Total Bilirubin 0.3 mg/dL (0.2-1.0) Aspartate Amino Transf (AST/SGOT) 44 U/L (15-37) Alanine Aminotransferase (ALT/SGPT) 23 U/L (14-59) Alkaline Phosphatase 94 U/L (46-116) Total Protein 6.4 g/dL (6.4-8.2) Albumin 2.5 g/dL (3.4-5.0) Albumin/Globulin Ratio 0.6 (1.0-1.7) Glucose (Fingerstick) 161 mg/dL (70-99) 171 mg/dL (70-99) Body Fluid pH 7.44 Laboratory Tests Test 06/11/18 16:20 06/11/18 17:55 06/11/18 18:50 06/11/18 21:10 White Blood Count 3.7 x10^3/uL (4.0-11.0) Red Blood Count 3.14 x10^6/uL (3.50-5.40) Hemoglobin 7.9 g/dL (12.0-15.5) Hematocrit 24.8 % (36.0-47.0) Mean Corpuscular Volume 79 fL (79-100) Mean Corpuscular Hemoglobin 25 pg (25-35) Mean Corpuscular Hemoglobin Concent 32 g/dL (31-37) Red Cell Distribution Width 20.5 % (11.5-14.5) Platelet Count 260 x10^3/uL (140-400) Neutrophils (%) (Auto) 83 % (31-73) Lymphocytes (%) (Auto) 8 % (24-48) Monocytes (%) (Auto) 7 % (0-9) Eosinophils (%) (Auto) 1 % (0-3) Basophils (%) (Auto) 1 % (0-3) Neutrophils # (Auto) 3.1 x10^3uL (1.8-7.7) Lymphocytes # (Auto) 0.3 x10^3/uL (1.0-4.8) Monocytes # (Auto) 0.2 x10^3/uL (0.0-1.1) Eosinophils # (Auto) 0.1 x10^3/uL (0.0-0.7) Basophils # (Auto) 0.0 x10^3/uL (0.0-0.2) Segmented Neutrophils % 86 % (35-66) Lymphocytes % 9 % (24-48) Monocytes % 5 % (0-10) Toxic Vacuolation Slight Platelet Estimate Adequate (ADEQUATE) Hypochromasia Slight Poikilocytosis Slight Anisocytosis Mod Microcytosis Slight Missy Cells Occ Schistocytes Occ Prothrombin Time 13.8 SEC (11.7-14.0) Prothromb Time International Ratio 1.1 (0.8-1.1) Activated Partial Thromboplast Time 25 SEC (24-38) D-Dimer (Roxanne) 12.84 ug/mlFEU (0.00-0.50) Sodium Level 135 mmol/L (136-145) Potassium Level 4.7 mmol/L (3.5-5.1) Chloride Level 101 mmol/L (98-107) Carbon Dioxide Level 23 mmol/L (21-32) Anion Gap 11 (6-14) Blood Urea Nitrogen 35 mg/dL (7-20) Creatinine 1.1 mg/dL (0.6-1.0) Estimated GFR (Cockcroft-Gault) 58.4 BUN/Creatinine Ratio 32 (6-20) Glucose Level 306 mg/dL (70-99) Calcium Level 9.0 mg/dL (8.5-10.1) Magnesium Level 1.7 mg/dL (1.8-2.4) Total Bilirubin 0.4 mg/dL (0.2-1.0) Aspartate Amino Transf (AST/SGOT) 45 U/L (15-37) Alanine Aminotransferase (ALT/SGPT) 25 U/L (14-59) Alkaline Phosphatase 98 U/L (46-116) Creatine Kinase 129 U/L (26-192) Creatine Kinase MB (Mass) 1.1 ng/mL (0.0-3.6) Creatine Kinase MB Relative Index 0.9 % (0-4) Troponin I Quantitative < 0.017 ng/mL (0.000-0.055) PO-Zmk-O-Type Natriuretic Peptide 228 pg/mL (0-449) Total Protein 6.7 g/dL (6.4-8.2) Albumin 2.6 g/dL (3.4-5.0) Albumin/Globulin Ratio 0.6 (1.0-1.7) Lipase 169 U/L (73-393) Thyroid Stimulating Hormone (TSH) 2.133 uIU/mL (0.358-3.74) Urine Collection Type Unknown Urine Color Yellow Urine Clarity Clear Urine pH 5.5 Urine Specific [place] >=1.030 Urine Protein Negative mg/dL (NEG-TRACE) Urine Glucose (UA) Negative mg/dL (NEG) Urine Ketones (Stick) Negative mg/dL (NEG) Urine Blood Negative (NEG) Urine Nitrite Negative (NEG) Urine Bilirubin Negative (NEG) Urine Urobilinogen Dipstick 0.2 mg/dL (0.2 mg/dL) Urine Leukocyte Esterase Trace (NEG) Urine RBC Rare /HPF (0-2) Urine WBC Occ /HPF (0-4) Urine Squamous Epithelial Cells Mod /LPF Urine Bacteria Few /HPF (0-FEW) Lactic Acid Level 0.7 mmol/L (0.4-2.0) Glucose (Fingerstick) 204 mg/dL (70-99) Test 06/12/18 07:30 06/12/18 07:53 06/12/18 10:57 06/12/18 13:30 White Blood Count 3.5 x10^3/uL (4.0-11.0) Red Blood Count 3.01 x10^6/uL (3.50-5.40) Hemoglobin 7.7 g/dL (12.0-15.5) Hematocrit 23.4 % (36.0-47.0) Mean Corpuscular Volume 78 fL (79-100) Mean Corpuscular Hemoglobin 26 pg (25-35) Mean Corpuscular Hemoglobin Concent 33 g/dL (31-37) Red Cell Distribution Width 20.3 % (11.5-14.5) Platelet Count 242 x10^3/uL (140-400) Neutrophils (%) (Auto) 79 % (31-73) Lymphocytes (%) (Auto) 9 % (24-48) Monocytes (%) (Auto) 9 % (0-9) Eosinophils (%) (Auto) 2 % (0-3) Basophils (%) (Auto) 1 % (0-3) Neutrophils # (Auto) 2.7 x10^3uL (1.8-7.7) Lymphocytes # (Auto) 0.3 x10^3/uL (1.0-4.8) Monocytes # (Auto) 0.3 x10^3/uL (0.0-1.1) Eosinophils # (Auto) 0.1 x10^3/uL (0.0-0.7) Basophils # (Auto) 0.0 x10^3/uL (0.0-0.2) Sodium Level 140 mmol/L (136-145) Potassium Level 3.9 mmol/L (3.5-5.1) Chloride Level 104 mmol/L (98-107) Carbon Dioxide Level 25 mmol/L (21-32) Anion Gap 11 (6-14) Blood Urea Nitrogen 35 mg/dL (7-20) Creatinine 1.2 mg/dL (0.6-1.0) Estimated GFR (Cockcroft-Gault) 52.9 BUN/Creatinine Ratio 29 (6-20) Glucose Level 165 mg/dL (70-99) Calcium Level 9.0 mg/dL (8.5-10.1) Iron Level 28 ug/dL (50-170) Total Iron Binding Capacity 176 ug/dL (250-450) Iron Saturation 16 % (15-34) Ferritin 238 ng/mL (8-252) Total Bilirubin 0.3 mg/dL (0.2-1.0) Aspartate Amino Transf (AST/SGOT) 44 U/L (15-37) Alanine Aminotransferase (ALT/SGPT) 23 U/L (14-59) Alkaline Phosphatase 94 U/L (46-116) Total Protein 6.4 g/dL (6.4-8.2) Albumin 2.5 g/dL (3.4-5.0) Albumin/Globulin Ratio 0.6 (1.0-1.7) Glucose (Fingerstick) 161 mg/dL (70-99) 171 mg/dL (70-99) Body Fluid pH 7.44 Medications Active Scripts Medications Dose Route/Sig Max Daily Dose Days Date Category Mag-Oxide (Magnesium Oxide) 400 Mg Tablet 06/11/18 Reported Tradjenta (Linagliptin) 5 Mg Tablet 06/11/18 Reported Tradjenta (Linagliptin) 5 Mg Tablet 06/11/18 Reported Lantus Solostar (Insulin Glargine,Hum.rec.anlog) 100 Unit/1 Ml Insuln.pen 06/11/18 Reported Diltiazem 24Hr Cd (Diltiazem HCl) 240 Mg Cap.er.24h 06/11/18 Reported Losartan Potassium 50 Mg Tablet 06/11/18 Reported Metformin Hcl Er (Metformin Hcl) 500 Mg Tab.er.24h 06/11/18 Reported Klor-Con 10 (Potassium Chloride) 10 Meq Tablet.er 06/11/18 Reported Atorvastatin Calcium 20 Mg Tablet 06/11/18 Reported Furosemide 40 Mg Tablet 06/11/18 Reported Mirtazapine 30 Mg Tablet 06/11/18 Reported Afinitor (Everolimus) 2.5 Mg Tablet 06/11/18 Reported Afinitor (Everolimus) 10 Mg Tablet 10 Mg PO DAILY 03/07/18 Reported Aromasin (Exemestane) 25 Mg Tablet 25 Mg PO DAILY 03/07/18 Reported Xgeva (Denosumab) 120 Mg/1.7 Ml Vial 120 Mg SQ MONTHLY 03/27/17 Reported Aleve (Naproxen Sodium) 220 Mg Tablet 440 Mg PO BID 03/02/17 Reported Vitamin D3 (Cholecalciferol (Vitamin D3)) 2,000 Unit Tablet 2,000 Unit PO DAILY 03/01/17 Reported Calcium (Calcium Carbonate) 500 Mg Tablet 500 Mg PO DAILY 03/01/17 Reported Cardizem Cd (Diltiazem Hcl) 240 Mg Cap.er.24h 1 Cap PO BID 03/01/17 Reported Hydrocodone-Apap 5-325 (Hydrocodone Bit/Acetaminophen) 1 Each Tablet 1 Tab PO PRN Q6HRS PRN 02/06/17 Reported Metformin Hcl 1,000 Mg Tablet 1,000 Mg PO BIDWMEALS 02/06/17 Reported Proair Hfa Inhaler (Albuterol Sulfate) 8.5 Gm Hfa.aer.ad 1 Puff INH PRN Q6HRS PRN 02/06/17 Reported Losartan Potassium 50 Mg Tablet 50 Mg PO DAILY 02/06/17 Reported Montelukast Sodium Tablet (Montelukast Sodium) 10 Mg Tablet 10 Mg PO HS 02/06/17 Reported Labetalol Hcl 200 Mg Tablet 200 Mg PO BID 02/06/17 Reported Impression . FULL NOTE DICTATED BILATERAL EFFUSION SEE ORDERS THANKS EMILE SOUTH MD Jun 12, 2018 15:25
[2018-06-12] MEDS: DRONABINOL 2.5 MG CAPSULE. PO SCH ×2 (15:58→17:16)
[2018-06-12] MEDS: MESALAMINE 400 MG CAP.DRTAB. PO SCH ×3 (15:58→21:17)
[2018-06-12] MEDS: PANTOPRAZOLE 40 MG TABLET.DR. PO SCH (15:58)
[2018-06-12] MEDS: ALBUTEROL SULFATE 2.5 MG/3 ML NEBU. NEB SCH ×2 (16:00→19:28)
--- NOTE | 2018-06-12 17:20 | NUR ---
Pt requested to have half the ordered dose of mesalamine, citing fear of constipation. 1 pill/400mg administered, the other pill remains in her bin in the med room.
[2018-06-12 17:22] LABS: BF CLARITY HAZY; BF COLOR YELLOW; BF SOURCE PLEURAL
[2018-06-12 17:23] LABS: BF MON % 14 %; BF RBC COUNT 1097 /cmm (Not Established); BF WBC COUNT 2635 /cmm (Not Established)
[2018-06-12 17:28] LABS: BF OTHER % 86 %
[2018-06-12 17:29] LABS: BF CLARITY HAZY; BF COLOR YELLOW; BF SOURCE ASCITES; BF WBC COUNT 900 /cmm (Not Established)
[2018-06-12 17:30] LABS: BF MON % 18 %; BF RBC COUNT 200 /cmm (Not Established)
[2018-06-12 17:31] LABS: BF OTHER % 82 %
[2018-06-12] MEDS: BUDESONIDE 0.5 MG/2 ML NEBU. NEB SCH (19:28)
--- NOTE | 2018-06-12 19:35 | NUR ---
Pt's family given a list of the dates pt was given iodinated contrast, as family had questions about pt not being told to hold metformin when having scans with contrast. Per resources in [place] and pharmacy, this is a [facility] protocol and not a safety issue if the pt is able to drink and stay hydrated normally. Spoke with Sukhdev, information written down for his spouse, Judi.
[2018-06-12] MEDS: MIRTAZAPINE 7.5 MG TABLET. PO SCH (21:18)
[2018-06-12] MEDS: MONTELUKAST SODIUM 10 MG TABLET. PO SCH (21:19)
[2018-06-12] MEDS: INSULIN GLARGINE 300 UNITS/3 ML INSULN.PEN. SQ SCH (21:26)
--- NOTE | 2018-06-13 00:55 | CONS ---
DATE OF CONSULTATION: 06/12/2018 ATTENDING PHYSICIAN: Dr. Kristi Smith. REASON FOR CONSULTATION: The patient seen in pulmonary consultation at the request of Dr. Smith for abnormal CT revealing bilateral pleural effusions. HISTORY OF PRESENT ILLNESS: The patient is a 78-year-old female, with metastatic breast cancer, status post radiation, currently on oral chemotherapy, evaluated for increasing shortness of breath. CT showed bilateral pleural effusions and ascites. I was asked to see her in consultation. The patient denies fever, chills, night sweats. No productive cough. She quit tobacco many years ago, smoked for a short period of time. She carries a diagnosis of obstructive lung disease, possibly asthma component, utilizes albuterol on a p.r.n. basis. PAST MEDICAL HISTORY: Metastatic breast cancer, history of colitis. She has had previous EGD and colonoscopy recently, hypertension, obstructive lung disease, possible asthma component, hyperlipidemia, type 2 diabetes, allergic rhinitis, depression, osteoarthritis, osteoporosis, previous removal of a benign thyroid nodule, bilateral cataract removal, left lumpectomy. PAST SURGICAL HISTORY: As above. FAMILY HISTORY: Prostate and ovarian cancer, diabetes and hypertension. SOCIAL HISTORY: She is currently not smoking. REVIEW OF SYSTEMS: CONSTITUTIONAL: No fever or chills. EYES: No change in visual acuity. HEENT: No nasal congestion or sore throat. PULMONARY: As indicated above. CARDIOVASCULAR: No previous myocardial infarction or cardiomyopathy. GASTROINTESTINAL: As indicated above. GENITOURINARY: No dysuria or frequency. MUSCULOSKELETAL: No localized muscle aches or joint pain. SKIN: No new skin rashes. NEUROLOGIC: No headaches, diplopia or blurred vision. PHYSICAL EXAMINATION: GENERAL: The patient was in no respiratory distress. VITAL SIGNS: Stable. O2 saturation was greater than 92%, currently on 2 liters. HEENT: Eyes, the sclerae were nonicteric. NECK: Jugular venous distention was not elevated. No lymphadenopathy. CHEST: Full expansion. LUNGS: Diminished breath sounds in the bases. No wheezes. CARDIOVASCULAR: Regular rate and rhythm with S1, S2, no S3. ABDOMEN: Soft, nontender, nondistended. EXTREMITIES: No clubbing, cyanosis. Minimal edema. NEUROLOGIC: The patient was awake, alert, following commands. A detailed neuro exam was not performed. LABORATORY DATA: Reviewed. Echocardiogram, ejection fraction 60-65%, pulmonary artery pressure was estimated at [address] reviewed. Chest x-ray reviewed. White count was low. Hemoglobin and hematocrit were noted. BUN and creatinine slightly elevated. Albumin was low. IMPRESSION: 1. Bilateral pleural effusions. No clinical indication that this is related to infection, suspect malignant effusion. Echocardiogram was normal. This could certainly be related to low oncotic pressure. The patient's admission albumin was 2.5. ASSESSMENT: 1. Metastatic breast cancer. 2. Obstructive lung disease with asthma component. 3. History of remote tobacco dependence, in remission. PLAN: 1. We will proceed with thoracentesis, obtain routine analysis. 2. Continue nebulized treatments. 3. O2 supplementation. I do appreciate the privilege in sharing in the patient's care. EMILE SOUTH MD DR: MARIYA/az JOB#: [id number] / [id number]
[2018-06-13 02:58] VITALS: BP 99/45
[2018-06-13] MEDS: PANTOPRAZOLE 40 MG TABLET.DR. PO SCH (07:30)
[2018-06-13] MEDS: BUDESONIDE 0.5 MG/2 ML NEBU. NEB SCH ×2 (07:55→18:23)
[2018-06-13] MEDS: ALBUTEROL SULFATE 2.5 MG/3 ML NEBU. NEB SCH ×4 (07:55→18:23)
[2018-06-13 07:59] VITALS: BP 120/56
[2018-06-13] MEDS: INSULIN LISPRO 300 UNITS/3 ML INSULN.PEN. SQ SCH ×3 (08:00→17:22)
[2018-06-13] MEDS: LABETALOL HCL 200 MG TABLET PO SCH ×2 (09:00→22:06)
[2018-06-13] MEDS: FUROSEMIDE 40 MG TABLET. PO SCH (09:16)
[2018-06-13] MEDS: ATORVASTATIN CALCIUM 20 MG TABLET PO SCH (09:19)
[2018-06-13] MEDS: NAPROXEN 500 MG TABLET PO SCH ×2 (09:19→22:05)
[2018-06-13] MEDS: MESALAMINE 400 MG CAP.DRTAB. PO SCH ×2 (09:22→22:05)
[2018-06-13] MEDS: CHOLECALCIFEROL (VITAMIN D3) 1,000 UNIT TABLET PO SCH (09:23)
[2018-06-13] MEDS: CALCIUM CARBONATE 500 MG TABLET PO SCH (09:24)
[2018-06-13] MEDS: LOSARTAN POTASSIUM 50 MG TABLET. PO SCH (09:29)
--- NOTE | 2018-06-13 09:30 | NUR ---
Performed patient cares: at that time the patient requested that I share information with the family/visitors in the room, including medication education. At that time the patient care nursing assistant (incorrectly) said that pantoprazole was a probiotic--I corrected the statement that pantoprazole was for acid reflux in the digestive system (i.e., GERD). The Mesalamine (Delzicol) was used to treat inflammation in the colon (i.e., colitis or similar). The woman stated "We don't need two medications for the same thing". I re-educated that these were two different medications for two different health conditions.
--- NOTE | 2018-06-13 10:02 | PDOC ---
PROGRESS NOTES Chief Complaint Chief Complaint SOB, abdominal distention History of Present Illness History of Present Illness Patient was seen sitting up in bed today, eating breakfast. Her son and daughter were in the room. She has no complaints today. She had a paracentesis and thoracentesis done yesterday. Vitals Vitals Vital Signs Date Time Temp Pulse Resp B/P (MAP) Pulse Ox O2 Delivery O2 Flow Rate FiO2 06/13/18 09:29 91 120/56 06/13/18 08:00 98 Nasal Cannula 2.0 06/13/18 07:59 98.3 19 98.3 Physical Exam General: Alert, Oriented X3, Cooperative, No acute distress Heart: Regular rate, Normal S1, Normal S2, No murmurs Lungs: Other (SOB, some wheezes, no rales, or rhonchi) Abdomen: Soft, No tenderness, No masses, Other (distended) Extremities: No edema, Normal pulses, No tenderness/swelling Skin: No rashes, No breakdown, No significant lesion Labs LABS Laboratory Tests Test 06/12/18 10:57 06/12/18 13:30 06/12/18 13:45 06/12/18 14:24 Glucose (Fingerstick) 171 mg/dL (70-99) 166 mg/dL (70-99) Body Fluid Source Pleural Ascites Body Fluid Color Yellow Yellow Body Fluid Clarity Hazy Hazy Body Fluid pH 7.44 Body Fluid Nucleated Cells 2635 /cmm (Not Established) 900 /cmm (Not Established) Body Fluid Mononuclear WBCs (%) 14 % 18 % Body Fluid Total RBCs Counted 1097 /cmm (Not Established) 200 /cmm (Not Established) Body Fluid Other Cells (%) 86 % 82 % Test 06/12/18 16:31 06/12/18 20:20 06/13/18 07:26 Glucose (Fingerstick) 214 mg/dL (70-99) 237 mg/dL (70-99) 198 mg/dL (70-99) Review of Systems Review of Systems Patient complains for abdominal distention, diarrhea and SOB. She denies fevers, chills, N/V, CP. Assessment and Plan Assessmemt and Plan Problems Medical Problems: (1) Ascites Status: Acute (2) Cholelithiasis Status: Acute (3) Pleural effusion Status: Acute (4) Shortness of breath Status: Acute Assessment: Acute hypoxic respiratory failure metastatic breast cancer to bone pleural effusion, poss. malignant or transudative Dm1 chronic HTN, hypotension today OA Osteoporosis HLD Asthma GERD Anorexia Depression Plan: Paracentesis and thoracentesis yesterday- waiting on cytology Echo: EF 60-65% O2 supplement Encourage PO intake Hypotension- held diltiazem and labetalol Oncology consult- Dr. Car GI consult- Dr. Mancini Pulmonology consult- Dr. Corona General surgery consult- Dr. Velazquez F/u labs PT/OT DVT prophylaxis Continue home meds Comment Review of Relevant I have reviewed the following items patrica (where applicable) has been applied. Labs Laboratory Tests Test 06/11/18 16:20 06/11/18 17:55 06/11/18 18:50 06/11/18 21:10 White Blood Count 3.7 x10^3/uL (4.0-11.0) Red Blood Count 3.14 x10^6/uL (3.50-5.40) Hemoglobin 7.9 g/dL (12.0-15.5) Hematocrit 24.8 % (36.0-47.0) Mean Corpuscular Volume 79 fL (79-100) Mean Corpuscular Hemoglobin 25 pg (25-35) Mean Corpuscular Hemoglobin Concent 32 g/dL (31-37) Red Cell Distribution Width 20.5 % (11.5-14.5) Platelet Count 260 x10^3/uL (140-400) Neutrophils (%) (Auto) 83 % (31-73) Lymphocytes (%) (Auto) 8 % (24-48) Monocytes (%) (Auto) 7 % (0-9) Eosinophils (%) (Auto) 1 % (0-3) Basophils (%) (Auto) 1 % (0-3) Neutrophils # (Auto) 3.1 x10^3uL (1.8-7.7) Lymphocytes # (Auto) 0.3 x10^3/uL (1.0-4.8) Monocytes # (Auto) 0.2 x10^3/uL (0.0-1.1) Eosinophils # (Auto) 0.1 x10^3/uL (0.0-0.7) Basophils # (Auto) 0.0 x10^3/uL (0.0-0.2) Segmented Neutrophils % 86 % (35-66) Lymphocytes % 9 % (24-48) Monocytes % 5 % (0-10) Toxic Vacuolation Slight Platelet Estimate Adequate (ADEQUATE) Hypochromasia Slight Poikilocytosis Slight Anisocytosis Mod Microcytosis Slight Missy Cells Occ Schistocytes Occ Prothrombin Time 13.8 SEC (11.7-14.0) Prothromb Time International Ratio 1.1 (0.8-1.1) Activated Partial Thromboplast Time 25 SEC (24-38) D-Dimer (Roxanne) 12.84 ug/mlFEU (0.00-0.50) Sodium Level 135 mmol/L (136-145) Potassium Level 4.7 mmol/L (3.5-5.1) Chloride Level 101 mmol/L (98-107) Carbon Dioxide Level 23 mmol/L (21-32) Anion Gap 11 (6-14) Blood Urea Nitrogen 35 mg/dL (7-20) Creatinine 1.1 mg/dL (0.6-1.0) Estimated GFR (Cockcroft-Gault) 58.4 BUN/Creatinine Ratio 32 (6-20) Glucose Level 306 mg/dL (70-99) Calcium Level 9.0 mg/dL (8.5-10.1) Magnesium Level 1.7 mg/dL (1.8-2.4) Total Bilirubin 0.4 mg/dL (0.2-1.0) Aspartate Amino Transf (AST/SGOT) 45 U/L (15-37) Alanine Aminotransferase (ALT/SGPT) 25 U/L (14-59) Alkaline Phosphatase 98 U/L (46-116) Creatine Kinase 129 U/L (26-192) Creatine Kinase MB (Mass) 1.1 ng/mL (0.0-3.6) Creatine Kinase MB Relative Index 0.9 % (0-4) Troponin I Quantitative < 0.017 ng/mL (0.000-0.055) [id number]-Fdq-[id number]-Type Natriuretic Peptide 228 pg/mL (0-449) Total Protein 6.7 g/dL (6.4-8.2) Albumin 2.6 g/dL (3.4-5.0) Albumin/Globulin Ratio 0.6 (1.0-1.7) Lipase 169 U/L (73-393) Thyroid Stimulating Hormone (TSH) 2.133 uIU/mL (0.358-3.74) Urine Collection Type Unknown Urine Color Yellow Urine Clarity Clear Urine pH 5.5 Urine Specific [place] >=1.030 Urine Protein Negative mg/dL (NEG-TRACE) Urine Glucose (UA) Negative mg/dL (NEG) Urine Ketones (Stick) Negative mg/dL (NEG) Urine Blood Negative (NEG) Urine Nitrite Negative (NEG) Urine Bilirubin Negative (NEG) Urine Urobilinogen Dipstick 0.2 mg/dL (0.2 mg/dL) Urine Leukocyte Esterase Trace (NEG) Urine RBC Rare /HPF (0-2) Urine WBC Occ /HPF (0-4) Urine Squamous Epithelial Cells Mod /LPF Urine Bacteria Few /HPF (0-FEW) Lactic Acid Level 0.7 mmol/L (0.4-2.0) Glucose (Fingerstick) 204 mg/dL (70-99) Test 06/12/18 07:30 06/12/18 07:53 06/12/18 10:57 06/12/18 13:30 White Blood Count 3.5 x10^3/uL (4.0-11.0) Red Blood Count 3.01 x10^6/uL (3.50-5.40) Hemoglobin 7.7 g/dL (12.0-15.5) Hematocrit 23.4 % (36.0-47.0) Mean Corpuscular Volume 78 fL (79-100) Mean Corpuscular Hemoglobin 26 pg (25-35) Mean Corpuscular Hemoglobin Concent 33 g/dL (31-37) Red Cell Distribution Width 20.3 % (11.5-14.5) Platelet Count 242 x10^3/uL (140-400) Neutrophils (%) (Auto) 79 % (31-73) Lymphocytes (%) (Auto) 9 % (24-48) Monocytes (%) (Auto) 9 % (0-9) Eosinophils (%) (Auto) 2 % (0-3) Basophils (%) (Auto) 1 % (0-3) Neutrophils # (Auto) 2.7 x10^3uL (1.8-7.7) Lymphocytes # (Auto) 0.3 x10^3/uL (1.0-4.8) Monocytes # (Auto) 0.3 x10^3/uL (0.0-1.1) Eosinophils # (Auto) 0.1 x10^3/uL (0.0-0.7) Basophils # (Auto) 0.0 x10^3/uL (0.0-0.2) Sodium Level 140 mmol/L (136-145) Potassium Level 3.9 mmol/L (3.5-5.1) Chloride Level 104 mmol/L (98-107) Carbon Dioxide Level 25 mmol/L (21-32) Anion Gap 11 (6-14) Blood Urea Nitrogen 35 mg/dL (7-20) Creatinine 1.2 mg/dL (0.6-1.0) Estimated GFR (Cockcroft-Gault) 52.9 BUN/Creatinine Ratio 29 (6-20) Glucose Level 165 mg/dL (70-99) Calcium Level 9.0 mg/dL (8.5-10.1) Iron Level 28 ug/dL (50-170) Total Iron Binding Capacity 176 ug/dL (250-450) Iron Saturation 16 % (15-34) Ferritin 238 ng/mL (8-252) Total Bilirubin 0.3 mg/dL (0.2-1.0) Aspartate Amino Transf (AST/SGOT) 44 U/L (15-37) Alanine Aminotransferase (ALT/SGPT) 23 U/L (14-59) Alkaline Phosphatase 94 U/L (46-116) Total Protein 6.4 g/dL (6.4-8.2) Albumin 2.5 g/dL (3.4-5.0) Albumin/Globulin Ratio 0.6 (1.0-1.7) Glucose (Fingerstick) 161 mg/dL (70-99) 171 mg/dL (70-99) Body Fluid Source Pleural Body Fluid Color Yellow Body Fluid Clarity Hazy Body Fluid pH 7.44 Body Fluid Nucleated Cells 2635 /cmm (Not Established) Body Fluid Mononuclear WBCs (%) 14 % Body Fluid Total RBCs Counted 1097 /cmm (Not Established) Body Fluid Other Cells (%) 86 % Test 06/12/18 13:45 06/12/18 14:24 06/12/18 16:31 06/12/18 20:20 Body Fluid Source Ascites Body Fluid Color Yellow Body Fluid Clarity Hazy Body Fluid Nucleated Cells 900 /cmm (Not Established) Body Fluid Mononuclear WBCs (%) 18 % Body Fluid Total RBCs Counted 200 /cmm (Not Established) Body Fluid Other Cells (%) 82 % Glucose (Fingerstick) 166 mg/dL (70-99) 214 mg/dL (70-99) 237 mg/dL (70-99) Test 06/13/18 07:26 Glucose (Fingerstick) 198 mg/dL (70-99) Laboratory Tests Test 06/12/18 10:57 06/12/18 13:30 06/12/18 13:45 06/12/18 14:24 Glucose (Fingerstick) 171 mg/dL (70-99) 166 mg/dL (70-99) Body Fluid Source Pleural Ascites Body Fluid Color Yellow Yellow Body Fluid Clarity Hazy Hazy Body Fluid pH 7.44 Body Fluid Nucleated Cells 2635 /cmm (Not Established) 900 /cmm (Not Established) Body Fluid Mononuclear WBCs (%) 14 % 18 % Body Fluid Total RBCs Counted 1097 /cmm (Not Established) 200 /cmm (Not Established) Body Fluid Other Cells (%) 86 % 82 % Test 06/12/18 16:31 06/12/18 20:20 06/13/18 07:26 Glucose (Fingerstick) 214 mg/dL (70-99) 237 mg/dL (70-99) 198 mg/dL (70-99) Microbiology 06/11/18 Blood Culture - Preliminary, Resulted NO GROWTH AFTER 1 DAY Medications Current Medications Albuterol/ Ipratropium (Duoneb) 3 ml 1X ONCE NEB Last administered on 06/11/18 at 17:19; Start 06/11/18 at 17:15; Stop 06/11/18 at 17:16; Status DC Ondansetron HCl (Zofran) 4 mg PRN Q8HRS PRN IV NAUSEA/VOMITING; Start 06/11/18 at 19:15; Stop 06/12/18 at 19:14; Status DC Morphine Sulfate (Morphine Sulfate) 4 mg PRN Q2HR PRN IV PAIN; Start 06/11/18 at 19:15; Stop 06/12/18 at 19:14; Status DC Acetaminophen (Tylenol) 650 mg PRN Q4HRS PRN PO FEVER; Start 06/11/18 at 19:15; Stop 06/12/18 at 19:14; Status DC Dextrose (Dextrose 50%-Water Syringe) 12.5 gm PRN Q15MIN PRN IV SEE COMMENTS; Start 06/11/18 at 19:15; Status Cancel Insulin Human Regular (HumuLIN R VIAL) 5 unit 1X ONCE IV Last administered on 06/11/18at 20:11; Start 06/11/18 at 19:30; Stop 06/11/18 at 19:31; Status DC Albuterol Sulfate (Ventolin Neb Soln) 2.5 mg PRN Q6HRS PRN INH SHORTNESS OF BREATH Last administered on 06/12/18at 08:37; Start 06/11/18 at 20:45 Atorvastatin Calcium (Lipitor) 20 mg DAILY PO Last administered on 06/13/18 09:19; Start 06/12/18 at 09:00 Calcium Carbonate/ Glycine (Oscal) 500 mg DAILY PO Last administered on 06/13/18 09:24; Start 06/12/18 at 09:00 Furosemide (Lasix) 40 mg DAILY PO Last administered on 06/13/18 09:16; Start 06/12/18 at 09:00 Acetaminophen/ Hydrocodone Bitart (Lortab 5/325) 1 tab PRN Q6HRS PRN PO PAIN; Start 06/11/18 at 20:45 Losartan Potassium (Cozaar) 50 mg DAILY PO Last administered on 06/13/18 09:29; Start 06/12/18 at 09:00 Vitamin D (Vitamin D3) 2,000 unit DAILY PO Last administered on 06/13/18 09:23; Start 06/12/18 at 09:00 Diltiazem HCl (Cardizem 24hr Cd) 240 mg BID PO Last administered on 06/13/18 09:17; Start 06/11/18 at 21:00 Non-Formulary Medication (Everolimus (Afinitor)) 10 mg DAILY PO ; Start 06/12/18 at 09:00; Stop 06/12/18 at 09:00; Status DC Non-Formulary Medication (Exemestane (Aromasin)) 25 mg DAILY PO ; Start 06/12/18 at 09:00; Stop 06/12/18 at 09:00; Status DC Labetalol HCl (Trandate) 200 mg BID PO Last administered on 06/12/18at 09:27; Start 06/11/18 at 21:00 Non-Formulary Medication (Metformin Hcl ) 1,000 mg BIDWMEALS PO ; Start 06/12/18 at 08:00; Status UNV Montelukast Sodium (Singulair) 10 mg QHS PO Last administered on 06/12/18at 21:19; Start 06/11/18 at 21:00 Naproxen (Naprosyn) 500 mg BID PO Last administered on 06/13/18at 09:19; Start 06/11/18 at 21:00 Insulin Human Lispro (HumaLOG) 0-7 UNITS TIDWMEALS SQ Last administered on 06/13/18at 08:00; Start 06/12/18 at 08:00 Dextrose (Dextrose 50%-Water Syringe) 12.5 gm PRN Q15MIN PRN IV SEE COMMENTS; Start 06/11/18 at 20:45 Insulin Glargine (Lantus) 7 units QHS SQ Last administered on 06/12/18at 21:26; Start 06/11/18 at 21:45 Loperamide HCl (Imodium) 2 mg PRN Q15MIN PRN PO DIARRHEA (1st Choice); Start 06/12/18 at 08:45 Diphenoxylate HCl/ Atropine (Lomotil) 1 tab PRN QID PRN PO DIARRHEA (2nd Choice) Last administered on 06/12/18at 10:16; Start 06/12/18 at 08:45 Dronabinol (Marinol) 5 mg BIDACLD PO Last administered on 06/12/18at 17:16; Start 06/12/18 at 11:30 Albumin Human 500 ml @ 125 mls/hr 1X ONCE IV Last administered on 06/12/18at 15:58; Start 06/12/18 at 09:30; Stop 06/12/18 at 13:29; Status DC Pantoprazole Sodium (Protonix) 40 mg DAILYAC PO Last administered on 06/13/18at 07:30; Start 06/12/18 at 11:30 Zolpidem Tartrate (Ambien) 5 mg PRN QHS PRN PO INSOMNIA; Start 06/12/18 at 11:30 Mirtazapine (Remeron) 7.5 mg QHS PO Last administered on 06/12/18at 21:18; Start 06/12/18 at 21:00 Mesalamine (Delzicol) 800 mg BID PO Last administered on 06/13/18at 09:22; Start 06/12/18 at 15:00 Albuterol Sulfate (Ventolin Neb Soln) 2.5 mg RTQID NEB Last administered on 06/13/18at 07:55; Start 06/12/18 at 16:00 Budesonide (Pulmicort) 0.5 mg RTBID NEB Last administered on 06/13/18at 07:55; Start 06/12/18 at 20:00 Active Scripts Active Reported Mag-Oxide (Magnesium Oxide) 400 Mg Tablet Tradjenta (Linagliptin) 5 Mg Tablet Tradjenta (Linagliptin) 5 Mg Tablet Lantus Solostar (Insulin Glargine,Hum.rec.anlog) 100 Unit/1 Ml Insuln.pen Diltiazem 24Hr Cd (Diltiazem HCl) 240 Mg Cap.er.24h Losartan Potassium 50 Mg Tablet Metformin Hcl Er (Metformin Hcl) 500 Mg Tab.er.24h Klor-Con 10 (Potassium Chloride) 10 Meq Tablet.er Atorvastatin Calcium 20 Mg Tablet Furosemide 40 Mg Tablet Mirtazapine 30 Mg Tablet Afinitor (Everolimus) 2.5 Mg Tablet Afinitor (Everolimus) 10 Mg Tablet 10 Mg PO DAILY Aromasin (Exemestane) 25 Mg Tablet 25 Mg PO DAILY Xgeva (Denosumab) 120 Mg/1.7 Ml Vial 120 Mg SQ MONTHLY Aleve (Naproxen Sodium) 220 Mg Tablet 440 Mg PO BID Vitamin D3 (Cholecalciferol (Vitamin D3)) 2,000 Unit Tablet 2,000 Unit PO DAILY Calcium (Calcium Carbonate) 500 Mg Tablet 500 Mg PO DAILY Cardizem Cd (Diltiazem Hcl) 240 Mg Cap.er.24h 1 Cap PO BID Hydrocodone-Apap 5-325 (Hydrocodone Bit/Acetaminophen) 1 Each Tablet 1 Tab PO PRN Q6HRS PRN Metformin Hcl 1,000 Mg Tablet 1,000 Mg PO BIDWMEALS Proair Hfa Inhaler (Albuterol Sulfate) 8.5 Gm Hfa.aer.ad 1 Puff INH PRN Q6HRS PRN Losartan Potassium 50 Mg Tablet 50 Mg PO DAILY Montelukast Sodium Tablet (Montelukast Sodium) 10 Mg Tablet 10 Mg PO HS Labetalol Hcl 200 Mg Tablet 200 Mg PO BID Vitals/I & O Vital Sign - Last 24 Hours 06/12/18 06/12/18 06/12/18 06/12/18 11:00 13:19 13:30 13:45 Temp 98.2 98.2 Pulse 102 102 100 97 Resp 16 20 18 18 B/P (MAP) 123/48 (73) 131/61 (84) 108/53 (71) 111/59 (76) Pulse Ox 93 97 99 99 O2 Delivery Nasal Cannula Nasal Cannula Nasal Cannula Nasal Cannula O2 Flow Rate 2.0 2.0 2.0 2.0 06/12/18 06/12/18 06/12/18 06/12/18 14:00 15:09 19:00 20:00 Temp 97.9 98.4 97.9 98.4 Pulse 96 97 98 Resp 20 14 16 B/P (MAP) 106/56 (73) 108/50 (69) 90/35 (53) Pulse Ox 99 91 95 O2 Delivery Nasal Cannula Nasal Cannula Nasal Cannula Nasal Cannula O2 Flow Rate 2.0 2.0 2.0 2.0 06/12/18 06/12/18 06/12/18 06/13/18 21:00 21:00 22:41 02:58 Temp 98.4 98.5 98.4 98.5 Pulse 98 98 98 97 Resp 18 18 B/P (MAP) 90/35 90/35 93/40 (57) 99/45 (63) Pulse Ox 94 97 O2 Delivery Nasal Cannula Nasal Cannula O2 Flow Rate 2.0 2.0 06/13/18 06/13/18 06/13/18 06/13/18 07:59 07:59 08:00 09:17 Temp 98.3 98.3 Pulse 91 91 Resp 19 B/P (MAP) 120/56 (77) 120/56 Pulse Ox 98 97 98 O2 Delivery Nasal Cannula Nasal Cannula Nasal Cannula O2 Flow Rate 2.0 2.0 2.0 06/13/18 09:29 Pulse 91 B/P (MAP) 120/56 Intake and Output 06/12/18 06/12/18 06/13/18 15:00 23:00 07:00 Intake Total 0 ml 500 ml 120 ml Output Total 1225 ml 0 ml Balance -1225 ml 500 ml 120 ml Nutrition Consultation Dietary Evaluation: Recommendations by RD: Increase Calorie Intake, Protein supplementation Comments: liberlize diet to regular, monitor BS vanilla ensure tid Expected Outcomes/Goals: to meet > 75% est nutr needs Malnutrition Findings: Body Fat Depletion (Non Severe: Mild Depletion Weight Status: Underweight VIVI LUNDBERG III DO Jun 13, 2018 10:01
--- NOTE | 2018-06-13 10:30 | NUR ---
Answered family's questions about medications, per patient request.
--- NOTE | 2018-06-13 10:36 | PDOC ---
PULMONARY PROGRESS NOTES Subjective PT LESS SOA Vitals Vital Signs Date Time Temp Pulse Resp B/P (MAP) Pulse Ox O2 Delivery O2 Flow Rate FiO2 06/13/18 09:29 91 120/56 06/13/18 08:00 98 Nasal Cannula 2.0 06/13/18 07:59 98.3 19 98.3 ROS: No Nausea, No Chest Pain, No Abdominal Pain, No Increase Cough Lungs: Crackles Cardiovascular: S1, S2 Abdomen: Soft Neuro Exam: Alert Extremities: No Edema Skin: Warm Labs Laboratory Tests Test 06/11/18 16:20 06/11/18 17:55 06/11/18 18:50 06/11/18 21:10 White Blood Count 3.7 x10^3/uL (4.0-11.0) Red Blood Count 3.14 x10^6/uL (3.50-5.40) Hemoglobin 7.9 g/dL (12.0-15.5) Hematocrit 24.8 % (36.0-47.0) Mean Corpuscular Volume 79 fL (79-100) Mean Corpuscular Hemoglobin 25 pg (25-35) Mean Corpuscular Hemoglobin Concent 32 g/dL (31-37) Red Cell Distribution Width 20.5 % (11.5-14.5) Platelet Count 260 x10^3/uL (140-400) Neutrophils (%) (Auto) 83 % (31-73) Lymphocytes (%) (Auto) 8 % (24-48) Monocytes (%) (Auto) 7 % (0-9) Eosinophils (%) (Auto) 1 % (0-3) Basophils (%) (Auto) 1 % (0-3) Neutrophils # (Auto) 3.1 x10^3uL (1.8-7.7) Lymphocytes # (Auto) 0.3 x10^3/uL (1.0-4.8) Monocytes # (Auto) 0.2 x10^3/uL (0.0-1.1) Eosinophils # (Auto) 0.1 x10^3/uL (0.0-0.7) Basophils # (Auto) 0.0 x10^3/uL (0.0-0.2) Segmented Neutrophils % 86 % (35-66) Lymphocytes % 9 % (24-48) Monocytes % 5 % (0-10) Toxic Vacuolation Slight Platelet Estimate Adequate (ADEQUATE) Hypochromasia Slight Poikilocytosis Slight Anisocytosis Mod Microcytosis Slight Missy Cells Occ Schistocytes Occ Prothrombin Time 13.8 SEC (11.7-14.0) Prothromb Time International Ratio 1.1 (0.8-1.1) Activated Partial Thromboplast Time 25 SEC (24-38) D-Dimer (Roxanne) 12.84 ug/mlFEU (0.00-0.50) Sodium Level 135 mmol/L (136-145) Potassium Level 4.7 mmol/L (3.5-5.1) Chloride Level 101 mmol/L (98-107) Carbon Dioxide Level 23 mmol/L (21-32) Anion Gap 11 (6-14) Blood Urea Nitrogen 35 mg/dL (7-20) Creatinine 1.1 mg/dL (0.6-1.0) Estimated GFR (Cockcroft-Gault) 58.4 BUN/Creatinine Ratio 32 (6-20) Glucose Level 306 mg/dL (70-99) Calcium Level 9.0 mg/dL (8.5-10.1) Magnesium Level 1.7 mg/dL (1.8-2.4) Total Bilirubin 0.4 mg/dL (0.2-1.0) Aspartate Amino Transf (AST/SGOT) 45 U/L (15-37) Alanine Aminotransferase (ALT/SGPT) 25 U/L (14-59) Alkaline Phosphatase 98 U/L (46-116) Creatine Kinase 129 U/L (26-192) Creatine Kinase MB (Mass) 1.1 ng/mL (0.0-3.6) Creatine Kinase MB Relative Index 0.9 % (0-4) Troponin I Quantitative < 0.017 ng/mL (0.000-0.055) TP-Ooc-Y-Type Natriuretic Peptide 228 pg/mL (0-449) Total Protein 6.7 g/dL (6.4-8.2) Albumin 2.6 g/dL (3.4-5.0) Albumin/Globulin Ratio 0.6 (1.0-1.7) Lipase 169 U/L (73-393) Thyroid Stimulating Hormone (TSH) 2.133 uIU/mL (0.358-3.74) Urine Collection Type Unknown Urine Color Yellow Urine Clarity Clear Urine pH 5.5 Urine Specific [place] >=1.030 Urine Protein Negative mg/dL (NEG-TRACE) Urine Glucose (UA) Negative mg/dL (NEG) Urine Ketones (Stick) Negative mg/dL (NEG) Urine Blood Negative (NEG) Urine Nitrite Negative (NEG) Urine Bilirubin Negative (NEG) Urine Urobilinogen Dipstick 0.2 mg/dL (0.2 mg/dL) Urine Leukocyte Esterase Trace (NEG) Urine RBC Rare /HPF (0-2) Urine WBC Occ /HPF (0-4) Urine Squamous Epithelial Cells Mod /LPF Urine Bacteria Few /HPF (0-FEW) Lactic Acid Level 0.7 mmol/L (0.4-2.0) Glucose (Fingerstick) 204 mg/dL (70-99) Test 06/12/18 07:30 06/12/18 07:53 06/12/18 10:57 06/12/18 13:30 White Blood Count 3.5 x10^3/uL (4.0-11.0) Red Blood Count 3.01 x10^6/uL (3.50-5.40) Hemoglobin 7.7 g/dL (12.0-15.5) Hematocrit 23.4 % (36.0-47.0) Mean Corpuscular Volume 78 fL (79-100) Mean Corpuscular Hemoglobin 26 pg (25-35) Mean Corpuscular Hemoglobin Concent 33 g/dL (31-37) Red Cell Distribution Width 20.3 % (11.5-14.5) Platelet Count 242 x10^3/uL (140-400) Neutrophils (%) (Auto) 79 % (31-73) Lymphocytes (%) (Auto) 9 % (24-48) Monocytes (%) (Auto) 9 % (0-9) Eosinophils (%) (Auto) 2 % (0-3) Basophils (%) (Auto) 1 % (0-3) Neutrophils # (Auto) 2.7 x10^3uL (1.8-7.7) Lymphocytes # (Auto) 0.3 x10^3/uL (1.0-4.8) Monocytes # (Auto) 0.3 x10^3/uL (0.0-1.1) Eosinophils # (Auto) 0.1 x10^3/uL (0.0-0.7) Basophils # (Auto) 0.0 x10^3/uL (0.0-0.2) Sodium Level 140 mmol/L (136-145) Potassium Level 3.9 mmol/L (3.5-5.1) Chloride Level 104 mmol/L (98-107) Carbon Dioxide Level 25 mmol/L (21-32) Anion Gap 11 (6-14) Blood Urea Nitrogen 35 mg/dL (7-20) Creatinine 1.2 mg/dL (0.6-1.0) Estimated GFR (Cockcroft-Gault) 52.9 BUN/Creatinine Ratio 29 (6-20) Glucose Level 165 mg/dL (70-99) Calcium Level 9.0 mg/dL (8.5-10.1) Iron Level 28 ug/dL (50-170) Total Iron Binding Capacity 176 ug/dL (250-450) Iron Saturation 16 % (15-34) Ferritin 238 ng/mL (8-252) Total Bilirubin 0.3 mg/dL (0.2-1.0) Aspartate Amino Transf (AST/SGOT) 44 U/L (15-37) Alanine Aminotransferase (ALT/SGPT) 23 U/L (14-59) Alkaline Phosphatase 94 U/L (46-116) Total Protein 6.4 g/dL (6.4-8.2) Albumin 2.5 g/dL (3.4-5.0) Albumin/Globulin Ratio 0.6 (1.0-1.7) Glucose (Fingerstick) 161 mg/dL (70-99) 171 mg/dL (70-99) Body Fluid Source Pleural Body Fluid Color Yellow Body Fluid Clarity Hazy Body Fluid pH 7.44 Body Fluid Nucleated Cells 2635 /cmm (Not Established) Body Fluid Mononuclear WBCs (%) 14 % Body Fluid Total RBCs Counted 1097 /cmm (Not Established) Body Fluid Other Cells (%) 86 % Test 06/12/18 13:45 06/12/18 14:24 06/12/18 16:31 06/12/18 20:20 Body Fluid Source Ascites Body Fluid Color Yellow Body Fluid Clarity Hazy Body Fluid Nucleated Cells 900 /cmm (Not Established) Body Fluid Mononuclear WBCs (%) 18 % Body Fluid Total RBCs Counted 200 /cmm (Not Established) Body Fluid Other Cells (%) 82 % Glucose (Fingerstick) 166 mg/dL (70-99) 214 mg/dL (70-99) 237 mg/dL (70-99) Test 06/13/18 07:26 Glucose (Fingerstick) 198 mg/dL (70-99) Laboratory Tests Test 06/12/18 10:57 06/12/18 13:30 06/12/18 13:45 06/12/18 14:24 Glucose (Fingerstick) 171 mg/dL (70-99) 166 mg/dL (70-99) Body Fluid Source Pleural Ascites Body Fluid Color Yellow Yellow Body Fluid Clarity Hazy Hazy Body Fluid pH 7.44 Body Fluid Nucleated Cells 2635 /cmm (Not Established) 900 /cmm (Not Established) Body Fluid Mononuclear WBCs (%) 14 % 18 % Body Fluid Total RBCs Counted 1097 /cmm (Not Established) 200 /cmm (Not Established) Body Fluid Other Cells (%) 86 % 82 % Test 06/12/18 16:31 06/12/18 20:20 06/13/18 07:26 Glucose (Fingerstick) 214 mg/dL (70-99) 237 mg/dL (70-99) 198 mg/dL (70-99) Medications Active Scripts Medications Dose Route/Sig Max Daily Dose Days Date Category Mag-Oxide (Magnesium Oxide) 400 Mg Tablet 06/11/18 Reported Tradjenta (Linagliptin) 5 Mg Tablet 06/11/18 Reported Tradjenta (Linagliptin) 5 Mg Tablet 06/11/18 Reported Lantus Solostar (Insulin Glargine,Hum.rec.anlog) 100 Unit/1 Ml Insuln.pen 06/11/18 Reported Diltiazem 24Hr Cd (Diltiazem HCl) 240 Mg Cap.er.24h 06/11/18 Reported Losartan Potassium 50 Mg Tablet 06/11/18 Reported Metformin Hcl Er (Metformin Hcl) 500 Mg Tab.er.24h 06/11/18 Reported Klor-Con 10 (Potassium Chloride) 10 Meq Tablet.er 06/11/18 Reported Atorvastatin Calcium 20 Mg Tablet 06/11/18 Reported Furosemide 40 Mg Tablet 06/11/18 Reported Mirtazapine 30 Mg Tablet 06/11/18 Reported Afinitor (Everolimus) 2.5 Mg Tablet 06/11/18 Reported Afinitor (Everolimus) 10 Mg Tablet 10 Mg PO DAILY 03/07/18 Reported Aromasin (Exemestane) 25 Mg Tablet 25 Mg PO DAILY 03/07/18 Reported Xgeva (Denosumab) 120 Mg/1.7 Ml Vial 120 Mg SQ MONTHLY 03/27/17 Reported Aleve (Naproxen Sodium) 220 Mg Tablet 440 Mg PO BID 03/02/17 Reported Vitamin D3 (Cholecalciferol (Vitamin D3)) 2,000 Unit Tablet 2,000 Unit PO DAILY 03/01/17 Reported Calcium (Calcium Carbonate) 500 Mg Tablet 500 Mg PO DAILY 03/01/17 Reported Cardizem Cd (Diltiazem Hcl) 240 Mg Cap.er.24h 1 Cap PO BID 03/01/17 Reported Hydrocodone-Apap 5-325 (Hydrocodone Bit/Acetaminophen) 1 Each Tablet 1 Tab PO PRN Q6HRS PRN 02/06/17 Reported Metformin Hcl 1,000 Mg Tablet 1,000 Mg PO BIDWMEALS 02/06/17 Reported Proair Hfa Inhaler (Albuterol Sulfate) 8.5 Gm Hfa.aer.ad 1 Puff INH PRN Q6HRS PRN 02/06/17 Reported Losartan Potassium 50 Mg Tablet 50 Mg PO DAILY 02/06/17 Reported Montelukast Sodium Tablet (Montelukast Sodium) 10 Mg Tablet 10 Mg PO HS 02/06/17 Reported Labetalol Hcl 200 Mg Tablet 200 Mg PO BID 02/06/17 Reported Impression . ASSESSMENT: 1. Metastatic breast cancer. 2. Obstructive lung disease with asthma component. 3. History of remote tobacco dependence, in remission. 4. Bilateral effusion 5. Ascites Plan . spoke with dr Parnell malignant effusion pt not aware yet 2. Continue nebulized treatments. 3. O2 supplementation. EMILE SOUTH MD Jun 13, 2018 10:36
[2018-06-13 11:05] VITALS: BP 128/51
--- NOTE | 2018-06-13 11:24 | PDOC ---
Subjective: Subjective: Daughter present - said she felt better yesterday after thoracentesis/pa racentesis and was able to eat. Wants to know the FDA indication for Delzicol, has questions re: diarrhea vs inflammation, wants to know indication for Protonix, concerned that she is now getting three medications for diarrhea, wants to know what medications help bloating and belching, wants to know if Delzicol will be a long-term medication. She reports no significant history of heartburn or reflux. Diarrhea has been intermittent since January. Objective: Objective: RN - family has questions about magnesium and drowsiness. 1 stool charted. Vital Signs: Vital Signs Date Time Temp Pulse Resp B/P (MAP) Pulse Ox O2 Delivery O2 Flow Rate FiO2 06/13/18 11:05 97.8 98 21 128/51 (76) 94 Room Air 97.8 06/13/18 08:00 2.0 Labs: Laboratory Tests Test 06/12/18 13:30 06/12/18 13:45 06/12/18 14:24 06/12/18 16:31 Body Fluid Source Pleural Ascites Body Fluid Color Yellow Yellow Body Fluid Clarity Hazy Hazy Body Fluid pH 7.44 Body Fluid Nucleated Cells 2635 /cmm 900 /cmm Body Fluid Mononuclear WBCs (%) 14 % 18 % Body Fluid Total RBCs Counted 1097 /cmm 200 /cmm Body Fluid Other Cells (%) 86 % 82 % Glucose (Fingerstick) 166 mg/dL 214 mg/dL Test 06/12/18 20:20 06/13/18 07:26 Glucose (Fingerstick) 237 mg/dL 198 mg/dL BLOOD CULTURE Preliminary NO GROWTH AFTER 1 DAY Imaging: Echocardiogram <Conclusion> The left ventricular systolic function is normal. The Ejection Fraction is 60-65%. There is normal LV segmental wall motion. Transmitral Doppler flow pattern is Grade I-abnormal relaxation pattern. Trace mitral regurgitation. Trace tricuspid regurgitation with an estimated PAP of 32 mmHg. There is a trace circumferential pericardial effusion. PE: GEN: NAD NEURO/PSYCH: sleeping, not awakened A/P: Metastatic breast cancer s/p thoracentesis and paracentesis Chronic diarrhea -- Spent ~10 min discussing w/ daughter - her questions were answered to her satisfaction. She would like to continue mesalamine, use Imodium and Lomotil only PRN (already ordered this way), and stop pantoprazole. MILADYS POND Jun 13, 2018 11:24
--- NOTE | 2018-06-13 11:30 | NUR ---
Nurse exchange report done at this time to ADAMA Woodard, who assumed patient care.
[2018-06-13] MEDS: DRONABINOL 2.5 MG CAPSULE. PO SCH ×2 (12:02→17:12)
[2018-06-13 15:00] VITALS: BP 107/42
--- NOTE | 2018-06-13 15:41 | NUR ---
SW following pt for anticipated dc needs. Chart reviewed and discussed with RN. Pt lives at home with family. Pt uses a cane and is independent with ADLs. RN reported pt will be getting a Port for chemo and No SW needs at this time.
--- NOTE | 2018-06-13 16:44 | PDOC ---
PROGRESS NOTES Subjective Subjective HPI - f/u of Metastatic breast cancer ROS - dyspnea is better Objective Objective Vital Signs Date Time Temp Pulse Resp B/P (MAP) Pulse Ox O2 Delivery O2 Flow Rate FiO2 06/13/18 15:56 Nasal Cannula 2.0 06/13/18 15:00 98.2 100 21 107/42 (63) 90 98.2 Intake and Output 06/13/18 06:59 Intake Total 620 ml Output Total 1225 ml Balance -605 ml Intake Oral 120 ml IV Total 500 ml Output Urine Total 0 ml Drainage Total 1225 ml # Voids 1 # Bowel Movements 1 Physical Exam Heart: Normal S1, Normal S2 General: Alert, Oriented X3 Lungs: Clear to auscultation Neuro: Normal speech Psych/Mental Status: Mental status NL Assessment Assessment Problems Medical Problems: (1) Ascites Status: Acute (2) Cholelithiasis Status: Acute (3) Pleural effusion Status: Acute (4) Shortness of breath Status: Acute Assessment and Plan: She is a 78-year-old female with metastatic breast cancer to the bones and ascites and pleural effusions 1. Metastatic breast cancer: Concern for progressive disease (on bone scan and fluid accumulation possibly) as well as side effects from treatment, will hold exemestane and everolimus, Plan abraxancne chemo as outpt. Consult Dr Velazquez for port. 2. Pleural effusion. 1000 cc's of thin yellow fluid was removed, left side 06/12/18.. 3. Ascites. 255 cc of thin yellow ascites was then withdrawn 06/12/18. 4. Anemia with microcytosis: ferritin and iron panel reveal anemia due to chronic disease. Comment Review of Relevant I have reviewed the following items patrica (where applicable) has been applied. Labs Laboratory Tests Test 06/11/18 17:55 06/11/18 18:50 06/11/18 21:10 06/12/18 07:30 Urine Collection Type Unknown Urine Color Yellow Urine Clarity Clear Urine pH 5.5 Urine Specific [place] >=1.030 Urine Protein Negative mg/dL (NEG-TRACE) Urine Glucose (UA) Negative mg/dL (NEG) Urine Ketones (Stick) Negative mg/dL (NEG) Urine Blood Negative (NEG) Urine Nitrite Negative (NEG) Urine Bilirubin Negative (NEG) Urine Urobilinogen Dipstick 0.2 mg/dL (0.2 mg/dL) Urine Leukocyte Esterase Trace (NEG) Urine RBC Rare /HPF (0-2) Urine WBC Occ /HPF (0-4) Urine Squamous Epithelial Cells Mod /LPF Urine Bacteria Few /HPF (0-FEW) Lactic Acid Level 0.7 mmol/L (0.4-2.0) Glucose (Fingerstick) 204 mg/dL (70-99) White Blood Count 3.5 x10^3/uL (4.0-11.0) Red Blood Count 3.01 x10^6/uL (3.50-5.40) Hemoglobin 7.7 g/dL (12.0-15.5) Hematocrit 23.4 % (36.0-47.0) Mean Corpuscular Volume 78 fL (79-100) Mean Corpuscular Hemoglobin 26 pg (25-35) Mean Corpuscular Hemoglobin Concent 33 g/dL (31-37) Red Cell Distribution Width 20.3 % (11.5-14.5) Platelet Count 242 x10^3/uL (140-400) Neutrophils (%) (Auto) 79 % (31-73) Lymphocytes (%) (Auto) 9 % (24-48) Monocytes (%) (Auto) 9 % (0-9) Eosinophils (%) (Auto) 2 % (0-3) Basophils (%) (Auto) 1 % (0-3) Neutrophils # (Auto) 2.7 x10^3uL (1.8-7.7) Lymphocytes # (Auto) 0.3 x10^3/uL (1.0-4.8) Monocytes # (Auto) 0.3 x10^3/uL (0.0-1.1) Eosinophils # (Auto) 0.1 x10^3/uL (0.0-0.7) Basophils # (Auto) 0.0 x10^3/uL (0.0-0.2) Sodium Level 140 mmol/L (136-145) Potassium Level 3.9 mmol/L (3.5-5.1) Chloride Level 104 mmol/L (98-107) Carbon Dioxide Level 25 mmol/L (21-32) Anion Gap 11 (6-14) Blood Urea Nitrogen 35 mg/dL (7-20) Creatinine 1.2 mg/dL (0.6-1.0) Estimated GFR (Cockcroft-Gault) 52.9 BUN/Creatinine Ratio 29 (6-20) Glucose Level 165 mg/dL (70-99) Calcium Level 9.0 mg/dL (8.5-10.1) Iron Level 28 ug/dL (50-170) Total Iron Binding Capacity 176 ug/dL (250-450) Iron Saturation 16 % (15-34) Ferritin 238 ng/mL (8-252) Total Bilirubin 0.3 mg/dL (0.2-1.0) Aspartate Amino Transf (AST/SGOT) 44 U/L (15-37) Alanine Aminotransferase (ALT/SGPT) 23 U/L (14-59) Alkaline Phosphatase 94 U/L (46-116) Total Protein 6.4 g/dL (6.4-8.2) Albumin 2.5 g/dL (3.4-5.0) Albumin/Globulin Ratio 0.6 (1.0-1.7) Test 06/12/18 07:53 06/12/18 10:57 06/12/18 13:30 06/12/18 13:45 Glucose (Fingerstick) 161 mg/dL (70-99) 171 mg/dL (70-99) Body Fluid Source Pleural Ascites Body Fluid Color Yellow Yellow Body Fluid Clarity Hazy Hazy Body Fluid pH 7.44 Body Fluid Nucleated Cells 2635 /cmm (Not Established) 900 /cmm (Not Established) Body Fluid Mononuclear WBCs (%) 14 % 18 % Body Fluid Total RBCs Counted 1097 /cmm (Not Established) 200 /cmm (Not Established) Body Fluid Other Cells (%) 86 % 82 % Body Fluid Glucose 190 mg/dL (.) 198 mg/dL (.) Body Fluid Total Protein 3.4 g/dL (.) 3.5 g/dL (.) Body Fluid Lactate Dehydrogenase 209 IU/L (.) 121 IU/L (.) Body Fluid Amylase 56 U/L (.) Test 06/12/18 14:24 06/12/18 16:31 06/12/18 20:20 06/13/18 07:26 Glucose (Fingerstick) 166 mg/dL (70-99) 214 mg/dL (70-99) 237 mg/dL (70-99) 198 mg/dL (70-99) Test 06/13/18 11:29 Glucose (Fingerstick) 276 mg/dL (70-99) Laboratory Tests Test 06/12/18 20:20 06/13/18 07:26 06/13/18 11:29 Glucose (Fingerstick) 237 mg/dL (70-99) 198 mg/dL (70-99) 276 mg/dL (70-99) Microbiology 06/11/18 Blood Culture - Preliminary, Resulted NO GROWTH AFTER 1 DAY 06/12/18 Anaerobic/Aerobic Culture, Resulted Pending 06/12/18 Anaerobic Culture Result 1 (KEISHA), Resulted Pending 06/12/18 Aerobic Culture, Resulted Pending 06/12/18 Aerobic Culture Result 1 (KEISHA), Resulted Pending 06/12/18 Gram Stain - Final, Resulted 06/12/18 Gram Stain Result 1 (KEISHA) - Final, Resulted 06/12/18 Gram Stain Result 2 (KEISHA) - Final, Resulted Medications Current Medications Albuterol/ Ipratropium (Duoneb) 3 ml 1X ONCE NEB Last administered on 06/11/18at 17:19; Start 06/11/18 at 17:15; Stop 06/11/18 at 17:16; Status DC Ondansetron HCl (Zofran) 4 mg PRN Q8HRS PRN IV NAUSEA/VOMITING; Start 06/11/18 at 19:15; Stop 06/12/18 at 19:14; Status DC Morphine Sulfate (Morphine Sulfate) 4 mg PRN Q2HR PRN IV PAIN; Start 06/11/18 at 19:15; Stop 06/12/18 at 19:14; Status DC Acetaminophen (Tylenol) 650 mg PRN Q4HRS PRN PO FEVER; Start 06/11/18 at 19:15; Stop 06/12/18 at 19:14; Status DC Dextrose (Dextrose 50%-Water Syringe) 12.5 gm PRN Q15MIN PRN IV SEE COMMENTS; Start 06/11/18 at 19:15; Status Cancel Insulin Human Regular (HumuLIN R VIAL) 5 unit 1X ONCE IV Last administered on 06/11/18at 20:11; Start 06/11/18 at 19:30; Stop 06/11/18 at 19:31; Status DC Albuterol Sulfate (Ventolin Neb Soln) 2.5 mg PRN Q6HRS PRN INH SHORTNESS OF BREATH Last administered on 06/12/18 08:37; Start 06/11/18 at 20:45 Atorvastatin Calcium (Lipitor) 20 mg DAILY PO Last administered on 06/13/18 09:19; Start 06/12/18 at 09:00 Calcium Carbonate/ Glycine (Oscal) 500 mg DAILY PO Last administered on 06/13/18 09:24; Start 06/12/18 at 09:00 Furosemide (Lasix) 40 mg DAILY PO Last administered on 06/13/18 09:16; Start 06/12/18 at 09:00 Acetaminophen/ Hydrocodone Bitart (Lortab 5/325) 1 tab PRN Q6HRS PRN PO PAIN; Start 06/11/18 at 20:45 Losartan Potassium (Cozaar) 50 mg DAILY PO Last administered on 06/13/18 09:29; Start 06/12/18 at 09:00 Vitamin D (Vitamin D3) 2,000 unit DAILY PO Last administered on 06/13/18 09:23; Start 06/12/18 at 09:00 Diltiazem HCl (Cardizem 24hr Cd) 240 mg BID PO Last administered on 06/13/18 09:17; Start 06/11/18 at 21:00 Non-Formulary Medication (Everolimus (Afinitor)) 10 mg DAILY PO ; Start 06/12/18 at 09:00; Stop 06/12/18 at 09:00; Status DC Non-Formulary Medication (Exemestane (Aromasin)) 25 mg DAILY PO ; Start 06/12/18 at 09:00; Stop 06/12/18 at 09:00; Status DC Labetalol HCl (Trandate) 200 mg BID PO Last administered on 06/12/18 09:27; Start 06/11/18 at 21:00 Non-Formulary Medication (Metformin Hcl ) 1,000 mg BIDWMEALS PO ; Start 06/12/18 at 08:00; Status UNV Montelukast Sodium (Singulair) 10 mg QHS PO Last administered on 06/12/18 21: 19; Start 06/11/18 at 21:00 Naproxen (Naprosyn) 500 mg BID PO Last administered on 06/13/18 09:19; Start 06/11/18 at 21:00 Insulin Human Lispro (HumaLOG) 0-7 UNITS TIDWMEALS SQ Last administered on 06/13/18 12:11; Start 06/12/18 at 08:00 Dextrose (Dextrose 50%-Water Syringe) 12.5 gm PRN Q15MIN PRN IV SEE COMMENTS; Start 06/11/18 at 20:45 Insulin Glargine (Lantus) 7 units QHS SQ Last administered on 06/12/18 21:26; Start 06/11/18 at 21:45 Loperamide HCl (Imodium) 2 mg PRN Q15MIN PRN PO DIARRHEA (1st Choice); Start 06/12/18 at 08:45 Diphenoxylate HCl/ Atropine (Lomotil) 1 tab PRN QID PRN PO DIARRHEA (2nd Choice) Last administered on 06/12/18 10:16; Start 06/12/18 at 08:45 Dronabinol (Marinol) 5 mg BIDACLD PO Last administered on 06/13/18 12:02; St art 06/12/18 at 11:30 Albumin Human 500 ml @ 125 mls/hr 1X ONCE IV Last administered on 06/12/18 15:58; Start 06/12/18 at 09:30; Stop 06/12/18 at 13:29; Status DC Pantoprazole Sodium (Protonix) 40 mg DAILYAC PO Last administered on 06/13/18 07:30; Start 06/12/18 at 11:30; Stop 06/13/18 at 11:24; Status DC Zolpidem Tartrate (Ambien) 5 mg PRN QHS PRN PO INSOMNIA; Start 06/12/18 at 11:30 Mirtazapine (Remeron) 7.5 mg QHS PO Last administered on 06/12/18 21:18; Start 06/12/18 at 21:00 Mesalamine (Delzicol) 800 mg BID PO Last administered on 06/13/18 09:22; Start 06/12/18 at 15:00 Albuterol Sulfate (Ventolin Neb Soln) 2.5 mg RTQID NEB Last administered on 06/13/18 15:55; Start 06/12/18 at 16:00 Budesonide (Pulmicort) 0.5 mg RTBID NEB Last administered on 4/25/19at 07:55; Start 06/12/18 at 20:00 Active Scripts Active Reported Mag-Oxide (Magnesium Oxide) 400 Mg Tablet Tradjenta (Linagliptin) 5 Mg Tablet Tradjenta (Linagliptin) 5 Mg Tablet Lantus Solostar (Insulin Glargine,Hum.rec.anlog) 100 Unit/1 Ml Insuln.pen Diltiazem 24Hr Cd (Diltiazem HCl) 240 Mg Cap.er.24h Losartan Potassium 50 Mg Tablet Metformin Hcl Er (Metformin Hcl) 500 Mg Tab.er.24h Klor-Con 10 (Potassium Chloride) 10 Meq Tablet.er Atorvastatin Calcium 20 Mg Tablet Furosemide 40 Mg Tablet Mirtazapine 30 Mg Tablet Afinitor (Everolimus) 2.5 Mg Tablet Afinitor (Everolimus) 10 Mg Tablet 10 Mg PO DAILY Aromasin (Exemestane) 25 Mg Tablet 25 Mg PO DAILY Xgeva (Denosumab) 120 Mg/1.7 Ml Vial 120 Mg SQ MONTHLY Aleve (Naproxen Sodium) 220 Mg Tablet 440 Mg PO BID Vitamin D3 (Cholecalciferol (Vitamin D3)) 2,000 Unit Tablet 2,000 Unit PO DAILY Calcium (Calcium Carbonate) 500 Mg Tablet 500 Mg PO DAILY Cardizem Cd (Diltiazem Hcl) 240 Mg Cap.er.24h 1 Cap PO BID Hydrocodone-Apap 5-325 (Hydrocodone Bit/Acetaminophen) 1 Each Tablet 1 Tab PO PRN Q6HRS PRN Metformin Hcl 1,000 Mg Tablet 1,000 Mg PO BIDWMEALS Proair Hfa Inhaler (Albuterol Sulfate) 8.5 Gm Hfa.aer.ad 1 Puff INH PRN Q6HRS PRN Losartan Potassium 50 Mg Tablet 50 Mg PO DAILY Montelukast Sodium Tablet (Montelukast Sodium) 10 Mg Tablet 10 Mg PO HS Labetalol Hcl 200 Mg Tablet 200 Mg PO BID Vitals/I & O Vital Sign - Last 24 Hours 06/12/18 06/12/18 06/12/18 06/12/18 19:00 20:00 21:00 21:00 Temp 98.4 98.4 Pulse 98 98 98 Resp 16 B/P (MAP) 90/35 (53) 90/35 90/35 Pulse Ox 95 O2 Delivery Nasal Cannula Nasal Cannula O2 Flow Rate 2.0 2.0 4/24/19 06/13/18 06/13/18 06/13/18 22:41 02:58 07:59 07:59 Temp 98.4 98.5 98.3 98.4 98.5 98.3 Pulse 98 97 91 Resp 18 18 19 B/P (MAP) 93/40 (57) 99/45 (63) 120/56 (77) Pulse Ox 94 97 98 97 O2 Delivery Nasal Cannula Nasal Cannula Nasal Cannula Nasal Cannula O2 Flow Rate 2.0 2.0 2.0 2.0 06/13/18 06/13/18 06/13/18 06/13/18 08:00 08:00 09:17 09:29 Pulse 91 91 B/P (MAP) 120/56 120/56 Pulse Ox 98 O2 Delivery Nasal Cannula Nasal Cannula O2 Flow Rate 2.0 2.0 06/13/18 06/13/18 06/13/18 06/13/18 11:05 12:57 15:00 15:56 Temp 97.8 98.2 97.8 98.2 Pulse 98 100 Resp 21 B/P (MAP) 128/51 (76) 107/42 (63) Pulse Ox 94 98 90 O2 Delivery Room Air Nasal Cannula Room Air Nasal Cannula O2 Flow Rate 2.0 2.0 Intake and Output 06/12/18 06/12/18 06/13/18 14:59 22:59 06:59 Intake Total 0 ml 500 ml 120 ml Output Total 1225 ml 0 ml Balance -1225 ml 500 ml 120 ml Nutrition Consultation Dietary Evaluation: Recommendations by RD: Increase Calorie Intake, Protein supplementation Comments: liberlize diet to regular, monitor BS vanilla ensure tid Expected Outcomes/Goals: to meet > 75% est nutr needs Malnutrition Findings: Body Fat Depletion (Non Severe: Mild Depletion Weight Status: Underweight FRANKIE MUNROE MD Jun 13, 2018 16:44
[2018-06-13 19:00] VITALS: BP 130/65
--- NOTE | 2018-06-13 20:00 | NUR ---
Dr. Brown called and said that he had spoke with Dr. Millan and will be in to speak with Patient in the morning regarding surgery for a Portacath for Chemo treatments to be schedule for Sunday06/17/2018.
--- NOTE | 2018-06-13 20:20 | PDOC ---
SURGICAL PROGRESS NOTE Subjective still a little dyspneic Vital Signs Vital Signs Date Time Temp Pulse Resp B/P (MAP) Pulse Ox O2 Delivery O2 Flow Rate FiO2 06/13/18 19:00 98.4 103 18 130/65 (86) 97 Nasal Cannula 2.0 98.4 I&O Intake and Output 06/13/18 07:00 Intake Total 620 ml Output Total 1225 ml Balance -605 ml Intake Oral 120 ml IV Total 500 ml Output Urine Total 0 ml Drainage Total 1225 ml # Voids 1 # Bowel Movements 1 PATIENT HAS A AGUILAR: No General: Alert Lungs: Other (slightly tachypneic) Labs Laboratory Tests Test 06/11/18 21:10 06/12/18 07:30 06/12/18 07:53 06/12/18 10:57 Glucose (Fingerstick) 204 mg/dL (70-99) 161 mg/dL (70-99) 171 mg/dL (70-99) White Blood Count 3.5 x10^3/uL (4.0-11.0) Red Blood Count 3.01 x10^6/uL (3.50-5.40) Hemoglobin 7.7 g/dL (12.0-15.5) Hematocrit 23.4 % (36.0-47.0) Mean Corpuscular Volume 78 fL (79-100) Mean Corpuscular Hemoglobin 26 pg (25-35) Mean Corpuscular Hemoglobin Concent 33 g/dL (31-37) Red Cell Distribution Width 20.3 % (11.5-14.5) Platelet Count 242 x10^3/uL (140-400) Neutrophils (%) (Auto) 79 % (31-73) Lymphocytes (%) (Auto) 9 % (24-48) Monocytes (%) (Auto) 9 % (0-9) Eosinophils (%) (Auto) 2 % (0-3) Basophils (%) (Auto) 1 % (0-3) Neutrophils # (Auto) 2.7 x10^3uL (1.8-7.7) Lymphocytes # (Auto) 0.3 x10^3/uL (1.0-4.8) Monocytes # (Auto) 0.3 x10^3/uL (0.0-1.1) Eosinophils # (Auto) 0.1 x10^3/uL (0.0-0.7) Basophils # (Auto) 0.0 x10^3/uL (0.0-0.2) Sodium Level 140 mmol/L (136-145) Potassium Level 3.9 mmol/L (3.5-5.1) Chloride Level 104 mmol/L (98-107) Carbon Dioxide Level 25 mmol/L (21-32) Anion Gap 11 (6-14) Blood Urea Nitrogen 35 mg/dL (7-20) Creatinine 1.2 mg/dL (0.6-1.0) Estimated GFR (Cockcroft-Gault) 52.9 BUN/Creatinine Ratio 29 (6-20) Glucose Level 165 mg/dL (70-99) Calcium Level 9.0 mg/dL (8.5-10.1) Iron Level 28 ug/dL (50-170) Total Iron Binding Capacity 176 ug/dL (250-450) Iron Saturation 16 % (15-34) Ferritin 238 ng/mL (8-252) Total Bilirubin 0.3 mg/dL (0.2-1.0) Aspartate Amino Transf (AST/SGOT) 44 U/L (15-37) Alanine Aminotransferase (ALT/SGPT) 23 U/L (14-59) Alkaline Phosphatase 94 U/L (46-116) Total Protein 6.4 g/dL (6.4-8.2) Albumin 2.5 g/dL (3.4-5.0) Albumin/Globulin Ratio 0.6 (1.0-1.7) Test 06/12/18 13:30 06/12/18 13:45 06/12/18 14:24 06/12/18 16:31 Body Fluid Source Pleural Ascites Body Fluid Color Yellow Yellow Body Fluid Clarity Hazy Hazy Body Fluid pH 7.44 Body Fluid Nucleated Cells 2635 /cmm (Not Established) 900 /cmm (Not Established) Body Fluid Mononuclear WBCs (%) 14 % 18 % Body Fluid Total RBCs Counted 1097 /cmm (Not Established) 200 /cmm (Not Established) Body Fluid Other Cells (%) 86 % 82 % Body Fluid Glucose 190 mg/dL (.) 198 mg/dL (.) Body Fluid Total Protein 3.4 g/dL (.) 3.5 g/dL (.) Body Fluid Lactate Dehydrogenase 209 IU/L (.) 121 IU/L (.) Body Fluid Amylase 56 U/L (.) Glucose (Fingerstick) 166 mg/dL (70-99) 214 mg/dL (70-99) Test 06/12/18 20:20 06/13/18 07:26 06/13/18 11:29 Glucose (Fingerstick) 237 mg/dL (70-99) 198 mg/dL (70-99) 276 mg/dL (70-99) Laboratory Tests Test 06/12/18 20:20 06/13/18 07:26 06/13/18 11:29 Glucose (Fingerstick) 237 mg/dL (70-99) 198 mg/dL (70-99) 276 mg/dL (70-99) Problem List Problems Medical Problems: (1) Ascites Status: Acute (2) Cholelithiasis Status: Acute (3) Pleural effusion Status: Acute (4) Shortness of breath Status: Acute Assessment/Plan metastatic breast cancer needs port d/w Dr Millan will plan port placement for Sunday told RN with MICHELLE Schwartz MD Jun 13, 2018 20:20
[2018-06-13] MEDS: MIRTAZAPINE 7.5 MG TABLET. PO SCH (21:00)
[2018-06-13] MEDS: MONTELUKAST SODIUM 10 MG TABLET. PO SCH (22:05)
[2018-06-13] MEDS: INSULIN GLARGINE 300 UNITS/3 ML INSULN.PEN. SQ SCH (22:10)
[2018-06-13 23:00] VITALS: BP 124/53
[2018-06-14 03:00] VITALS: BP 119/55
[2018-06-14 07:00] VITALS: BP 130/55
[2018-06-14] MEDS: BUDESONIDE 0.5 MG/2 ML NEBU. NEB SCH ×2 (08:00→21:15)
[2018-06-14] MEDS: ATORVASTATIN CALCIUM 20 MG TABLET PO SCH (09:00)
[2018-06-14] MEDS: NAPROXEN 500 MG TABLET PO SCH ×2 (09:00→21:00)
[2018-06-14] MEDS: CALCIUM CARBONATE 500 MG TABLET PO SCH (09:31)
[2018-06-14] MEDS: MESALAMINE 400 MG CAP.DRTAB. PO SCH ×2 (09:31→21:31)
[2018-06-14] MEDS: FUROSEMIDE 40 MG TABLET. PO SCH (09:31)
[2018-06-14] MEDS: LOSARTAN POTASSIUM 50 MG TABLET. PO SCH (09:31)
[2018-06-14] MEDS: LABETALOL HCL 200 MG TABLET PO SCH ×2 (09:32→21:31)
[2018-06-14] MEDS: CHOLECALCIFEROL (VITAMIN D3) 1,000 UNIT TABLET PO SCH (09:32)
[2018-06-14] MEDS: INSULIN LISPRO 300 UNITS/3 ML INSULN.PEN. SQ SCH ×3 (09:45→17:00)
--- NOTE | 2018-06-14 10:24 | NUR ---
MAILE following pt. Pt has home health through [facility] , phone: [phone], fax: [phone]. Resumption orders can be faxed upon dc. SOPHIA GALAN. Addendum: 06/14/18 at 1317 by MAYUR GR MAILE following pt. MAILE faxed resumption orders to [facility] . ADAMA notified.
[2018-06-14] MEDS: ALBUTEROL SULFATE 2.5 MG/3 ML NEBU. NEB SCH ×4 (10:51→21:15)
[2018-06-14 11:00] VITALS: BP 122/50
[2018-06-14] MEDS ORDERED: SEVOFLURANE 61 TO 120 MINUTES. IH ONE (11:10)
[2018-06-14] MEDS ORDERED: ONDANSETRON PF 4 MG/2 ML VIAL. ONE (11:10)
[2018-06-14] MEDS ORDERED: SUCCINYLCHOLINE 200 MG/10 ML VIAL. ONE (11:10)
[2018-06-14] MEDS ORDERED: DEXAMETHASONE SOD PHOS 4 MG/ML VIAL ONE (11:10)
[2018-06-14] MEDS ORDERED: fentaNYL PF VIAL 100 MCG/2 ML VIAL ONE (11:10)
[2018-06-14] MEDS ORDERED: LIDOCAINE 2% PF 5 ML VIAL. ONE (11:10)
[2018-06-14] MEDS ORDERED: PROPOFOL 20 ML IV ONE (11:10)
[2018-06-14] MEDS ORDERED: GLYCOPYRROLATE 1 MG/5 ML VIAL. ONE (11:11)
[2018-06-14] MEDS ORDERED: ROCURONIUM 50 MG/5 ML VIAL. ONE (11:11)
[2018-06-14] MEDS ORDERED: NEOSTIGMINE METHYLSULFATE 5 MG/5 ML SYRINGE. ONE (11:11)
--- NOTE | 2018-06-14 11:28 | SNU/HH DC ---
DISCHARGE WITH HOME HEALTH DISCHARGE INFORMATION: Final Diagnosis: Problems Medical Problems: (1) Ascites Status: Acute (2) Cholelithiasis Status: Acute (3) Pleural effusion Status: Acute (4) Shortness of breath Status: Acute Condition on Discharge: Stable CODE STATUS: Code Status: Full HOME HEALTH: Face to Face: I certify this patient is under my care and that I, or a nurse practitioner or physician's family readiness support assistant working with me, had a face to face encounter that meets the physician face to face encounter requirements with this patient on []. Medical Complications: Other (breast cancer) RN For Eval/Treatment: Yes Physical Therapy For: Evalulation/Treatment Occupational Therapy For: Evaluation/Treatment Home Health Aide For: Self-care GOVERNMENT EMPLOYEE For: Community Resources Pt Meets Homebound Status: Poor coordination w/ amb. POST DISCHARGE ORDERS: Activity Instructions for Disc: Bedrest today DIET AFTER DISCHARGE: Low Sodium 2 gm CERTIFICATION STATEMENT: Certification Statement: Certification Statement: Based on the above finding, I certify that this patient is confined to the home and needs intermittent senior living care, physical therapy and/or speech therapy, or continues to need occupational therapy.~ This patient is under my care, and I have initiated the establishment of the plan of care.~ This patient will be followed by myself or a community physician who will periodically review the plan of care. Home Meds Reported Medications Magnesium Oxide (MAG-OXIDE) 400 Mg Tablet 06/11/18 Linagliptin (Tradjenta) 5 Mg Tablet 06/11/18 Linagliptin (Tradjenta) 5 Mg Tablet 06/11/18 Insulin Glargine,Hum.rec.anlog (LANTUS SOLOSTAR) 100 Unit/1 Ml Insuln.pen 06/11/18 Diltiazem HCl (Diltiazem 24Hr Cd) 240 Mg Cap.er.24h 06/11/18 Losartan Potassium (Losartan Potassium) 50 Mg Tablet 06/11/18 Metformin Hcl (METFORMIN HCL ER) 500 Mg Tab.er.24h 06/11/18 Potassium Chloride (Klor-Con 10) 10 Meq Tablet.er 06/11/18 Atorvastatin Calcium (ATORVASTATIN CALCIUM) 20 Mg Tablet 06/11/18 Furosemide (FUROSEMIDE) 40 Mg Tablet 06/11/18 Mirtazapine (MIRTAZAPINE) 30 Mg Tablet 06/11/18 Everolimus (AFINITOR) 2.5 Mg Tablet 06/11/18 Everolimus (AFINITOR) 10 Mg Tablet, 10 MG PO DAILY for metastatic breast cancer 03/07/18 Exemestane (AROMASIN) 25 Mg Tablet, 25 MG PO DAILY for metastatic breast cancer 03/07/18 Denosumab (XGEVA) 120 Mg/1.7 Ml Vial, 120 MG SQ monthly 03/27/17 Naproxen Sodium (ALEVE) 220 Mg Tablet, 440 MG PO BID, TAB 03/02/17 Cholecalciferol (Vitamin D3) (VITAMIN D3) 2,000 Unit Tablet, 2000 UNIT PO DAILY, TAB 03/01/17 Calcium Carbonate (CALCIUM) 500 Mg Tablet, 500 MG PO DAILY, TAB 03/01/17 Diltiazem Hcl (CARDIZEM CD) 240 Mg Cap.er.24h, 1 CAP PO BID 03/01/17 Hydrocodone Bit/Acetaminophen (HYDROCODONE-APAP 5-325 ) 1 Each Tablet, 1 TAB PO PRN Q6HRS PRN for PAIN 02/06/17 Metformin Hcl (METFORMIN HCL) 1,000 Mg Tablet, 1000 MG PO BIDWMEALS 02/06/17 Albuterol Sulfate (PROAIR HFA INHALER) 8.5 Gm Hfa.aer.ad, 1 PUFF INH PRN Q6HRS PRN for SHORTNESS OF BREATH 02/06/17 Losartan Potassium (LOSARTAN POTASSIUM) 50 Mg Tablet, 50 MG PO DAILY 02/06/17 Montelukast Sodium (MONTELUKAST SODIUM TABLET) 10 Mg Tablet, 10 MG PO HS for FOR ASTHMA 02/06/17 Labetalol Hcl (LABETALOL HCL) 200 Mg Tablet, 200 MG PO BID 02/06/17 VIVI LUNDBERG III DO Jun 14, 2018 11:28
--- NOTE | 2018-06-14 11:45 | PDOC ---
PULMONARY PROGRESS NOTES Subjective PT LESS SOA Vitals Vital Signs Date Time Temp Pulse Resp B/P (MAP) Pulse Ox O2 Delivery O2 Flow Rate FiO2 06/14/18 10:52 96 Nasal Cannula 2.0 06/14/18 09:32 100 130/55 06/14/18 07:00 98.6 20 98.6 ROS: No Nausea, No Chest Pain, No Abdominal Pain, No Increase Cough Lungs: Crackles Cardiovascular: S1, S2 Abdomen: Soft Neuro Exam: Alert Extremities: No Edema Skin: Warm Labs Laboratory Tests Test 06/12/18 13:30 06/12/18 13:45 06/12/18 14:24 06/12/18 16:31 Body Fluid Source Pleural Ascites Body Fluid Color Yellow Yellow Body Fluid Clarity Hazy Hazy Body Fluid pH 7.44 Body Fluid Nucleated Cells 2635 /cmm (Not Established) 900 /cmm (Not Established) Body Fluid Mononuclear WBCs (%) 14 % 18 % Body Fluid Total RBCs Counted 1097 /cmm (Not Established) 200 /cmm (Not Established) Body Fluid Other Cells (%) 86 % 82 % Body Fluid Glucose 190 mg/dL (.) 198 mg/dL (.) Body Fluid Total Protein 3.4 g/dL (.) 3.5 g/dL (.) Body Fluid Lactate Dehydrogenase 209 IU/L (.) 121 IU/L (.) Body Fluid Amylase 56 U/L (.) Glucose (Fingerstick) 166 mg/dL (70-99) 214 mg/dL (70-99) Test 06/12/18 20:20 06/13/18 07:26 06/13/18 11:29 06/13/18 16:48 Glucose (Fingerstick) 237 mg/dL (70-99) 198 mg/dL (70-99) 276 mg/dL (70-99) 259 mg/dL (70-99) Test 06/13/18 20:38 06/14/18 07:38 06/14/18 10:48 Glucose (Fingerstick) 229 mg/dL (70-99) 201 mg/dL (70-99) 268 mg/dL (70-99) Laboratory Tests Test 06/13/18 16:48 06/13/18 20:38 06/14/18 07:38 06/14/18 10:48 Glucose (Fingerstick) 259 mg/dL (70-99) 229 mg/dL (70-99) 201 mg/dL (70-99) 268 mg/dL (70-99) Medications Active Scripts Medications Dose Route/Sig Max Daily Dose Days Date Category Mag-Oxide (Magnesium Oxide) 400 Mg Tablet 06/11/18 Reported Tradjenta (Linagliptin) 5 Mg Tablet 06/11/18 Reported Tradjenta (Linagliptin) 5 Mg Tablet 06/11/18 Reported Lantus Solostar (Insulin Glargine,Hum.rec.anlog) 100 Unit/1 Ml Insuln.pen 06/11/18 Reported Diltiazem 24Hr Cd (Diltiazem HCl) 240 Mg Cap.er.24h 06/11/18 Reported Losartan Potassium 50 Mg Tablet 06/11/18 Reported Metformin Hcl Er (Metformin Hcl) 500 Mg Tab.er.24h 06/11/18 Reported Klor-Con 10 (Potassium Chloride) 10 Meq Tablet.er 06/11/18 Reported Atorvastatin Calcium 20 Mg Tablet 06/11/18 Reported Furosemide 40 Mg Tablet 06/11/18 Reported Mirtazapine 30 Mg Tablet 06/11/18 Reported Afinitor (Everolimus) 2.5 Mg Tablet 06/11/18 Reported Afinitor (Everolimus) 10 Mg Tablet 10 Mg PO DAILY 03/07/18 Reported Aromasin (Exemestane) 25 Mg Tablet 25 Mg PO DAILY 03/07/18 Reported Xgeva (Denosumab) 120 Mg/1.7 Ml Vial 120 Mg SQ MONTHLY 03/27/17 Reported Aleve (Naproxen Sodium) 220 Mg Tablet 440 Mg PO BID 03/02/17 Reported Vitamin D3 (Cholecalciferol (Vitamin D3)) 2,000 Unit Tablet 2,000 Unit PO DAILY 03/01/17 Reported Calcium (Calcium Carbonate) 500 Mg Tablet 500 Mg PO DAILY 03/01/17 Reported Cardizem Cd (Diltiazem Hcl) 240 Mg Cap.er.24h 1 Cap PO BID 03/01/17 Reported Hydrocodone-Apap 5-325 (Hydrocodone Bit/Acetaminophen) 1 Each Tablet 1 Tab PO PRN Q6HRS PRN 02/06/17 Reported Metformin Hcl 1,000 Mg Tablet 1,000 Mg PO BIDWMEALS 02/06/17 Reported Proair Hfa Inhaler (Albuterol Sulfate) 8.5 Gm Hfa.aer.ad 1 Puff INH PRN Q6HRS PRN 02/06/17 Reported Losartan Potassium 50 Mg Tablet 50 Mg PO DAILY 02/06/17 Reported Montelukast Sodium Tablet (Montelukast Sodium) 10 Mg Tablet 10 Mg PO HS 02/06/17 Reported Labetalol Hcl 200 Mg Tablet 200 Mg PO BID 02/06/17 Reported Impression . ASSESSMENT: 1. Metastatic breast cancer. 2. Obstructive lung disease with asthma component. 3. History of remote tobacco dependence, in remission. 4. Bilateral effusion MALIGNANT 5. Ascites Plan . spoke with dr Parnell malignant effusion PT AWARE THORACENTESIS WHEN SHE BECOMES SYMPTOMATIC VS PLEREX CATH EMILE SOUTH MD Jun 14, 2018 11:45
--- NOTE | 2018-06-14 12:06 | PATHOLOGY ---
Note [facility] Accession Number: [id number] TESTS RESULT FLAG UNITS REF RANGE LAB Clinician Provided Cytology Information No. of containers..01 Other (Miscellaneous) Source: [A] 01 ASCITES DIAGNOSIS: [A] 02 ASCITES POSITIVE FOR MALIGNANT CELLS. MALIGNANT CELLS IDENTIFIED HAVING FEATURES CONSISTENT WITH METASTATIC POORLY DIFFERENTIATED CARCINOMA OF BREAST ORIGIN. THE RESULTS OF THE PLEURAL FLUID AND ASCITES FLUID CYTOLOGY ARE REPORTED TO DR. NAZARIO ON 06/13/18. THIS INTERPRETATION INCLUDES EVALUATION OF A CELL BLOCK. Signed out by: 02 Bryan Meléndez MD, Pathologist NPI- [id number] Performed by: [place], [employer] ([facility]) Gross description: 01 25ML, YELLOW, CLOUDY /LCS FLAG LEGEND: L-Low Normal,H-High Normal,LL-Alert Low,HH-Alert High <-Panic Low,>-Panic High,A-Abnormal,AA-Critical Abnormal Performed at: [facility] [address] [place] [address] Chevy Ervin MD, 02 [facility] [address] [place] [address] Bryan Meléndez MD, Specimen Comment: A courtesy copy of this report has been sent to Specimen Comment: [phone], , , . Specimen Comment: Report sent to ,DR MACKEY,DR GAMEZ / DR MARTINS Specimen Comment: A duplicate report has been generated due to demographic updates. Performed at: [address], [place], [place] [id number] MD Chevy Ervin MD Phone: [phone]
--- NOTE | 2018-06-14 12:18 | PDOC3 ---
[facility]-Dis[facility] Summary Date of Admission: Date of Admission: Jun 11, 2018 Date of Discharge: Date of Discharge: Jun 14, 2018 Admission Diagnosis: Admitting Diagnosis: Metastatic breast cancer Discharge Diagnosis: Discharge Diagnosis: Metastatic breast cancer Consults: Consults: Hematology oncology and interventional radiology Procedures: Procedures: Paracentesis and thoracentesis Hospital Course: Hospital Course: Mrs. 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 Parnell the cytology is positive on both samples The imaging is showing metastatic lesions in the scalp and in the hip and so bas ically the patient has advanced breast cancer with metastases I examined the patient is smiling spent a good 30 minutes going over the case with her family Heart tones were normal this morning her lungs were mostly clear abdomen was soft and slightly distended she was alert and oriented The plan is to discharge the patient and have her get up Port-A-Cath and she is to start chemotherapy here in the next week or 2 Disposition: Disposition/Orders: D/C to Home Activity: Activity: Resume previous activity Diet: Diet: Regular Medications: Home Meds Reported Medications Magnesium Oxide (MAG-OXIDE) 400 Mg Tablet 06/11/18 Linagliptin (Tradjenta) 5 Mg Tablet 06/11/18 Linagliptin (Tradjenta) 5 Mg Tablet 06/11/18 Insulin Glargine,Hum.rec.anlog (LANTUS SOLOSTAR) 100 Unit/1 Ml Insuln.pen 06/11/18 Diltiazem HCl (Diltiazem 24Hr Cd) 240 Mg Cap.er.24h 06/11/18 Losartan Potassium (Losartan Potassium) 50 Mg Tablet 06/11/18 Metformin Hcl (METFORMIN HCL ER) 500 Mg Tab.er.24h 06/11/18 Potassium Chloride (Klor-Con 10) 10 Meq Tablet.er 06/11/18 Atorvastatin Calcium (ATORVASTATIN CALCIUM) 20 Mg Tablet 06/11/18 Furosemide (FUROSEMIDE) 40 Mg Tablet 06/11/18 Mirtazapine (MIRTAZAPINE) 30 Mg Tablet 06/11/18 Everolimus (AFINITOR) 2.5 Mg Tablet 06/11/18 Everolimus (AFINITOR) 10 Mg Tablet, 10 MG PO DAILY for metastatic breast cancer 03/07/18 Exemestane (AROMASIN) 25 Mg Tablet, 25 MG PO DAILY for metastatic breast cancer 03/07/18 Denosumab (XGEVA) 120 Mg/1.7 Ml Vial, 120 MG SQ monthly 03/27/17 Naproxen Sodium (ALEVE) 220 Mg Tablet, 440 MG PO BID, TAB 03/02/17 Cholecalciferol (Vitamin D3) (VITAMIN D3) 2,000 Unit Tablet, 2000 UNIT PO DAILY, TAB 03/01/17 Calcium Carbonate (CALCIUM) 500 Mg Tablet, 500 MG PO DAILY, TAB 03/01/17 Diltiazem Hcl (CARDIZEM CD) 240 Mg Cap.er.24h, 1 CAP PO BID 03/01/17 Hydrocodone Bit/Acetaminophen (HYDROCODONE-APAP 5-325 ) 1 Each Tablet, 1 TAB PO PRN Q6HRS PRN for PAIN 02/06/17 Metformin Hcl (METFORMIN HCL) 1,000 Mg Tablet, 1000 MG PO BIDWMEALS 02/06/17 Albuterol Sulfate (PROAIR HFA INHALER) 8.5 Gm Hfa.aer.ad, 1 PUFF INH PRN Q6HRS PRN for SHORTNESS OF BREATH 02/06/17 Losartan Potassium (LOSARTAN POTASSIUM) 50 Mg Tablet, 50 MG PO DAILY 02/06/17 Montelukast Sodium (MONTELUKAST SODIUM TABLET) 10 Mg Tablet, 10 MG PO HS for FOR ASTHMA 02/06/17 Labetalol Hcl (LABETALOL HCL) 200 Mg Tablet, 200 MG PO BID 02/06/17 Scheduled Calcium Carbonate (Calcium), 500 MG PO DAILY, (Reported) Cholecalciferol (Vitamin D3) (Vitamin D3), 2,000 UNIT PO DAILY, (Reported) Denosumab (Xgeva), 120 MG SQ monthly, (Reported) Diltiazem Hcl (Cardizem Cd), 1 CAP PO BID, (Reported) Everolimus (Afinitor), 10 MG PO DAILY, (Reported) Exemestane (Aromasin), 25 MG PO DAILY, (Reported) Labetalol Hcl (Labetalol Hcl), 200 MG PO BID, (Reported) Losartan Potassium (Losartan Potassium), 50 MG PO DAILY, (Reported) Metformin Hcl (Metformin Hcl), 1,000 MG PO BIDWMEALS, (Reported) Montelukast Sodium (Montelukast Sodium Tablet), 10 MG PO HS, (Reported) Naproxen Sodium (Aleve), 440 MG PO BID, (Reported) Scheduled PRN Albuterol Sulfate (Proair Hfa Inhaler), 1 PUFF INH PRN Q6HRS PRN for SHORTNESS OF BREATH, (Reported) Hydrocodone Bit/Acetaminophen (Hydrocodone-Apap 5-325 ), 1 TAB PO PRN Q6HRS PRN for PAIN, (Reported) Miscellaneous Medications Atorvastatin Calcium (Atorvastatin Calcium), (Reported) Diltiazem HCl (Diltiazem 24Hr Cd), (Reported) Everolimus (Afinitor), (Reported) Furosemide (Furosemide), (Reported) Insulin Glargine,Hum.rec.anlog (Lantus Solostar), (Reported) Linagliptin (Tradjenta), (Reported) Linagliptin (Tradjenta), (Reported) Losartan Potassium (Losartan Potassium), (Reported) Magnesium Oxide (Mag-Oxide), (Reported) Metformin Hcl (Metformin Hcl Er), (Reported) Mirtazapine (Mirtazapine), (Reported) Potassium Chloride (Klor-Con 10), (Reported) Total Time: Total Time: 45 minutes VIVI LUNDBERG III, DO Jun 14, 2018 12:18
--- NOTE | 2018-06-14 12:33 | PDOC ---
PROGRESS NOTES Chief Complaint Chief Complaint SOB, abdominal distention History of Present Illness History of Present Illness The patient was seen resting in bed today. Her son Andrez and daughter Judi were in the room today. They had many concerns about their mother. We spent a significant amount of time answering their questions. We discussed her swollen legs, her diabetes, abdominal distension, pathology report, fluid shifts, appetite stimulation, and home O2. Plan detailed below. They agreed for her to be discharged today on home health. Vitals Vitals Vital Signs Date Time Temp Pulse Resp B/P (MAP) Pulse Ox O2 Delivery O2 Flow Rate FiO2 06/14/18 11:00 98.2 94 20 122/50 (74) 95 Nasal Cannula 2.0 98.2 Physical Exam General: Alert, Oriented X3, Cooperative, No acute distress Heart: Regular rate, Normal S1, Normal S2, No murmurs Lungs: Crackles, Other (No rales or rhonchi) Abdomen: Soft, No tenderness, No masses, Other (distended) Extremities: No edema, Normal pulses, No tenderness/swelling Skin: No rashes, No breakdown, No significant lesion Labs LABS Laboratory Tests Test 06/13/18 16:48 06/13/18 20:38 06/14/18 07:38 06/14/18 10:48 Glucose (Fingerstick) 259 mg/dL (70-99) 229 mg/dL (70-99) 201 mg/dL (70-99) 268 mg/dL (70-99) Review of Systems Review of Systems Patient complains of abdominal distention. She denies fevers, chills, N/V, CP, SOB, and diarrhea. Assessment and Plan Assessmemt and Plan Problems Medical Problems: (1) Ascites Status: Acute (2) Cholelithiasis Status: Acute (3) Pleural effusion Status: Acute (4) Shortness of breath Status: Acute Assessment: Acute hypoxic respiratory failure metastatic breast cancer to bone pleural effusion, poss. malignant or transudative Dm1 chronic HTN, hypotension today OA Osteoporosis HLD Asthma GERD Anorexia Depression Plan: Paracentesis and thoracentesis yesterday- discussed cytology with Dr. Meléndez, pathology report returned, positive for malignant cells in both the ascites and pleural fluid Echo: EF 60-65% O2 supplement- wrote script for home oxygen Encourage PO intake- cut her Marinol from 5 mg BID to 2.5 mg BID due to drowsiness. Wrote script for Megace 40 mg and Marinol 2.5 mg BID- the will fill what ever their insurance will cover Abdominal distension- recommended OTC simethicone Wrote script for NovoLog 10 units with meals and Lantus 20 units at night Fluid shifts- Lasix 40 mg Qday, she still complains of edema in her feet and ankles occasionally Requested letter from physician for an outpatient endocrinology appointment so she does not have to wait for 3 months for an appointment. Oncology consult- Dr. Millan GI consult- Dr. Mancini Pulmonology consult- Dr. Corona General surgery consult- Dr. Velazquez F/u labs PT/OT DVT prophylaxis Continue home meds DC home today with home health Comment Review of Relevant I have reviewed the following items patrica (where applicable) has been applied. Labs Laboratory Tests Test 06/12/18 13:30 06/12/18 13:45 06/12/18 14:24 06/12/18 16:31 Body Fluid Source Pleural Ascites Body Fluid Color Yellow Yellow Body Fluid Clarity Hazy Hazy Body Fluid pH 7.44 Body Fluid Nucleated Cells 2635 /cmm (Not Established) 900 /cmm (Not Established) Body Fluid Mononuclear WBCs (%) 14 % 18 % Body Fluid Total RBCs Counted 1097 /cmm (Not Established) 200 /cmm (Not Established) Body Fluid Other Cells (%) 86 % 82 % Body Fluid Glucose 190 mg/dL (.) 198 mg/dL (.) Body Fluid Total Protein 3.4 g/dL (.) 3.5 g/dL (.) Body Fluid Lactate Dehydrogenase 209 IU/L (.) 121 IU/L (.) Body Fluid Amylase 56 U/L (.) Glucose (Fingerstick) 166 mg/dL (70-99) 214 mg/dL (70-99) Test 06/12/18 20:20 06/13/18 07:26 06/13/18 11:29 06/13/18 16:48 Glucose (Fingerstick) 237 mg/dL (70-99) 198 mg/dL (70-99) 276 mg/dL (70-99) 259 mg/dL (70-99) Test 06/13/18 20:38 06/14/18 07:38 06/14/18 10:48 Glucose (Fingerstick) 229 mg/dL (70-99) 201 mg/dL (70-99) 268 mg/dL (70-99) Laboratory Tests Test 06/13/18 16:48 06/13/18 20:38 06/14/18 07:38 06/14/18 10:48 Glucose (Fingerstick) 259 mg/dL (70-99) 229 mg/dL (70-99) 201 mg/dL (70-99) 268 mg/dL (70-99) Microbiology 06/11/18 Blood Culture - Preliminary, Resulted NO GROWTH AFTER 2 DAYS 06/12/18 Anaerobic/Aerobic Culture, Resulted Pending 06/12/18 Anaerobic Culture Result 1 (KEISHA), Resulted Pending 06/12/18 Aerobic Culture, Resulted Pending 06/12/18 Aerobic Culture Result 1 (KEISHA), Resulted Pending 06/12/18 Gram Stain - Final, Resulted 06/12/18 Gram Stain Result 1 (KEISHA) - Final, Resulted 06/12/18 Gram Stain Result 2 (KEISHA) - Final, Resulted 06/11/18 Urine Culture - Preliminary, Resulted 06/11/18 Urine Culture Result 1 (KEISHA) - Preliminary, Resulted Medications Current Medications Albuterol/ Ipratropium (Duoneb) 3 ml 1X ONCE NEB Last administered on 06/11/18at 17:19; Start 06/11/18 at 17:15; Stop 06/11/18 at 17:16; Status DC Ondansetron HCl (Zofran) 4 mg PRN Q8HRS PRN IV NAUSEA/VOMITING; Start 06/11/18 at 19:15; Stop 06/12/18 at 19:14; Status DC Morphine Sulfate (Morphine Sulfate) 4 mg PRN Q2HR PRN IV PAIN; Start 06/11/18 at 19:15; Stop 06/12/18 at 19:14; Status DC Acetaminophen (Tylenol) 650 mg PRN Q4HRS PRN PO FEVER; Start 06/11/18 at 19:15; Stop 06/12/18 at 19:14; Status DC Dextrose (Dextrose 50%-Water Syringe) 12.5 gm PRN Q15MIN PRN IV SEE COMMENTS; Start 06/11/18 at 19:15; Status Cancel Insulin Human Regular (HumuLIN R VIAL) 5 unit 1X ONCE IV Last administered on 06/11/18at 20:11; Start 06/11/18 at 19:30; Stop 06/11/18 at 19:31; Status DC Albuterol Sulfate (Ventolin Neb Soln) 2.5 mg PRN Q6HRS PRN INH SHORTNESS OF BREATH Last administered on 06/12/18at 08:37; Start 06/11/18 at 20:45 Atorvastatin Calcium (Lipitor) 20 mg DAILY PO Last administered on 06/13/18 09:19; Start 06/12/18 at 09:00 Calcium Carbonate/ Glycine (Oscal) 500 mg DAILY PO Last administered on 06/14/18 09:31; Start 06/12/18 at 09:00 Furosemide (Lasix) 40 mg DAILY PO Last administered on 06/14/18 09:31; Start 06/12/18 at 09:00 Acetaminophen/ Hydrocodone Bitart (Lortab 5/325) 1 tab PRN Q6HRS PRN PO PAIN; Start 06/11/18 at 20:45 Losartan Potassium (Cozaar) 50 mg DAILY PO Last administered on 06/14/18 09:31; Start 06/12/18 at 09:00 Vitamin D (Vitamin D3) 2,000 unit DAILY PO Last administered on 06/14/18 09:32; Start 06/12/18 at 09:00 Diltiazem HCl (Cardizem 24hr Cd) 240 mg BID PO Last administered on 06/14/18 09:30; Start 06/11/18 at 21:00 Non-Formulary Medication (Everolimus (Afinitor)) 10 mg DAILY PO ; Start 06/12/18 at 09:00; Stop 06/12/18 at 09:00; Status DC Non-Formulary Medication (Exemestane (Aromasin)) 25 mg DAILY PO ; Start 06/12/18 at 09:00; Stop 06/12/18 at 09:00; Status DC Labetalol HCl (Trandate) 200 mg BID PO Last administered on 06/14/18 09:32; Start 06/11/18 at 21:00 Non-Formulary Medication (Metformin Hcl ) 1,000 mg BIDWMEALS PO ; Start 06/12/18 at 08:00; Status UNV Montelukast Sodium (Singulair) 10 mg QHS PO Last administered on 06/13/18at 22:05; Start 06/11/18 at 21:00 Naproxen (Naprosyn) 500 mg BID PO Last administered on 06/13/18 22:05; Start 06/11/18 at 21:00 Insulin Human Lispro (HumaLOG) 0-7 UNITS TIDWMEALS SQ Last administered on 06/14/18 09:45; Start 06/12/18 at 08:00 Dextrose (Dextrose 50%-Water Syringe) 12.5 gm PRN Q15MIN PRN IV SEE COMMENTS; Start 06/11/18 at 20:45 Insulin Glargine (Lantus) 7 units QHS SQ Last administered on 06/13/18 22:10; Start 06/11/18 at 21:45 Loperamide HCl (Imodium) 2 mg PRN Q15MIN PRN PO DIARRHEA (1st Choice); Start 06/12/18 at 08:45 Diphenoxylate HCl/ Atropine (Lomotil) 1 tab PRN QID PRN PO DIARRHEA (2nd Choice) Last administered on 06/12/18 10:16; Start 06/12/18 at 08:45 Dronabinol (Marinol) 5 mg BIDACLD PO Last administered on 06/13/18 17:12; Start 06/12/18 at 11:30 Albumin Human 500 ml @ 125 mls/hr 1X ONCE IV Last administered on 06/12/18 15:58; Start 06/12/18 at 09:30; Stop 06/12/18 at 13:29; Status DC Pantoprazole Sodium (Protonix) 40 mg DAILYAC PO Last administered on 06/13/18 07:30; Start 06/12/18 at 11:30; Stop 06/13/18 at 11:24; Status DC Zolpidem Tartrate (Ambien) 5 mg PRN QHS PRN PO INSOMNIA; Start 06/12/18 at 11:30 Mirtazapine (Remeron) 7.5 mg QHS PO Last administered on 06/12/18 21:18; Start 06/12/18 at 21:00 Mesalamine (Delzicol) 800 mg BID PO Last administered on 06/14/18 09:31; Start 06/12/18 at 15:00 Albuterol Sulfate (Ventolin Neb Soln) 2.5 mg RTQID NEB Last administered on 06/14/18at 10:51; Start 06/12/18 at 16:00 Budesonide (Pulmicort) 0.5 mg RTBID NEB Last administered on 06/14/18at 08:00; Start 06/12/18 at 20:00 Ondansetron HCl (Zofran) 4 mg STK-MED ONCE .ROUTE ; Start 06/14/18 at 11:10; Stop 06/14/18 at 11:11; Status DC Propofol 20 ml @ As Directed STK-MED ONCE IV ; Start 06/14/18 at 11:10; Stop 06/14/18 at 11:11; Status DC Lidocaine HCl (Lidocaine Pf 2% Vial) 5 ml STK-MED ONCE .ROUTE ; Start 06/14/18 at 11:10; Stop 06/14/18 at 11:11; Status DC Sevoflurane (Ultane) 60 ml STK-MED ONCE IH ; Start 06/14/18 at 11:10; Stop at 11:11; Status DC Fentanyl Citrate (Fentanyl 2ml Vial) 100 mcg STK-MED ONCE .ROUTE ; Start 06/14/18 at 11:10; Stop 06/14/18 at 11:11; Status DC Succinylcholine Chloride (Anectine) 200 mg STK-MED ONCE .ROUTE ; Start 06/14/18 at 11:10; Stop 06/14/18 at 11:11; Status DC Dexamethasone Sodium Phosphate (Decadron) 4 mg STK-MED ONCE .ROUTE ; Start 06/14/18 at 11:10; Stop 06/14/18 at 11:11; Status DC Glycopyrrolate (Robinul) 1 mg STK-MED ONCE .ROUTE ; Start 06/14/18 at 11:11; Stop 06/14/18 at 11:12; Status DC Neostigmine Methylsulfate (Neostigmine Methylsulfate) 5 mg STK-MED ONCE .ROUTE ; Start 06/14/18 at 11:11; Stop 06/14/18 at 11:12; Status DC Rocuronium [place] (Zemuron) 50 mg STK-MED ONCE .ROUTE ; Start 06/14/18 at 11:11; Stop 06/14/18 at 11:12; Status DC Active Scripts Active Reported Mag-Oxide (Magnesium Oxide) 400 Mg Tablet Tradjenta (Linagliptin) 5 Mg Tablet Tradjenta (Linagliptin) 5 Mg Tablet Lantus Solostar (Insulin Glargine,Hum.rec.anlog) 100 Unit/1 Ml Insuln.pen Diltiazem 24Hr Cd (Diltiazem HCl) 240 Mg Cap.er.24h Losartan Potassium 50 Mg Tablet Metformin Hcl Er (Metformin Hcl) 500 Mg Tab.er.24h Klor-Con 10 (Potassium Chloride) 10 Meq Tablet.er Atorvastatin Calcium 20 Mg Tablet Furosemide 40 Mg Tablet Mirtazapine 30 Mg Tablet Afinitor (Everolimus) 2.5 Mg Tablet Afinitor (Everolimus) 10 Mg Tablet 10 Mg PO DAILY Aromasin (Exemestane) 25 Mg Tablet 25 Mg PO DAILY Xgeva (Denosumab) 120 Mg/1.7 Ml Vial 120 Mg SQ MONTHLY Aleve (Naproxen Sodium) 220 Mg Tablet 440 Mg PO BID Vitamin D3 (Cholecalciferol (Vitamin D3)) 2,000 Unit Tablet 2,000 Unit PO DAILY Calcium (Calcium Carbonate) 500 Mg Tablet 500 Mg PO DAILY Cardizem Cd (Diltiazem Hcl) 240 Mg Cap.er.24h 1 Cap PO BID Hydrocodone-Apap 5-325 (Hydrocodone Bit/Acetaminophen) 1 Each Tablet 1 Tab PO PRN Q6HRS PRN Metformin Hcl 1,000 Mg Tablet 1,000 Mg PO BIDWMEALS Proair Hfa Inhaler (Albuterol Sulfate) 8.5 Gm Hfa.aer.ad 1 Puff INH PRN Q6HRS PRN Losartan Potassium 50 Mg Tablet 50 Mg PO DAILY Montelukast Sodium Tablet (Montelukast Sodium) 10 Mg Tablet 10 Mg PO HS Labetalol Hcl 200 Mg Tablet 200 Mg PO BID Vitals/I & O Vital Sign - Last 24 Hours 06/13/18 06/13/18 06/13/18 06/13/18 12:57 15:00 15:56 18:23 Temp 98.2 98.2 Pulse 100 Resp 21 B/P (MAP) 107/42 (63) Pulse Ox 98 90 O2 Delivery Nasal Cannula Room Air Nasal Cannula Nasal Cannula O2 Flow Rate 2.0 2.0 2.0 06/13/18 06/13/18 06/13/18 06/13/18 19:00 20:00 22:05 22:06 Temp 98.4 98.4 Pulse 103 103 103 Resp 18 B/P (MAP) 130/65 (86) 130/65 130/65 Pulse Ox 97 O2 Delivery Nasal Cannula Nasal Cannula O2 Flow Rate 2.0 2.0 06/13/18 06/14/18 06/14/18 06/14/18 23:00 03:00 07:00 09:30 Temp 98.0 98.0 98.6 98.0 98.0 98.6 Pulse 102 100 100 100 Resp 18 18 20 B/P (MAP) 124/53 (76) 119/55 (76) 130/55 (80) 130/55 Pulse Ox 97 98 96 O2 Delivery Nasal Cannula Nasal Cannula Nasal Cannula O2 Flow Rate 2.0 2.0 2.0 06/14/18 06/14/18 06/14/18 06/14/18 09:31 09:32 10:52 11:00 Temp 98.2 98.2 Pulse 100 100 94 Resp 20 B/P (MAP) 130/55 130/55 122/50 (74) Pulse Ox 96 95 O2 Delivery Nasal Cannula Nasal Cannula O2 Flow Rate 2.0 2.0 Intake and Output 06/13/18 06/13/18 06/14/18 15:00 23:00 07:00 Intake Total 300 ml 440 ml 120 ml Output Total 0 ml 1 ml Balance 300 ml 439 ml 120 ml Nutrition Consultation Dietary Evaluation: Recommendations by RD: Increase Calorie Intake, Protein supplementation Comments: liberlize diet to regular, monitor BS vanilla ensure tid Expected Outcomes/Goals: to meet > 75% est nutr needs Malnutrition Findings: Body Fat Depletion (Non Severe: Mild Depletion Weight Status: Underweight CASTLEVIVI K III DO Jun 14, 2018 12:33
--- NOTE | 2018-06-14 13:15 | PDOC ---
PROGRESS NOTES Subjective Subjective c/c - f/u of Metastatic breast cancer ROS - dyspnea better Objective Objective Vital Signs Date Time Temp Pulse Resp B/P (MAP) Pulse Ox O2 Delivery O2 Flow Rate FiO2 06/14/18 11:00 98.2 94 20 122/50 (74) 95 Nasal Cannula 2.0 98.2 Intake and Output 06/14/18 07:00 Intake Total 860 ml Output Total 1 ml Balance 859 ml Intake Oral 860 ml Output Urine Total 0 ml Urine/Stool Mix 1 ml # Voids 4 # Bowel Movements 2 Physical Exam Heart: Normal S1, Normal S2 General: Alert, Oriented X3 Lungs: Clear to auscultation Neuro: Normal speech Psych/Mental Status: Mental status NL Assessment Assessment Problems Medical Problems: (1) Ascites Status: Acute (2) Cholelithiasis Status: Acute (3) Pleural effusion Status: Acute (4) Shortness of breath Status: Acute Assessment and Plan: She is a 78-year-old female with metastatic breast cancer to the bones and ascites and pleural effusions 1. Metastatic breast cancer: Concern for progressive disease (on bone scan and fluid accumulation possibly) as well as side effects from treatment, will hold exemestane and everolimus, Plan abraxancne chemo as outpt. next week. Consulted Dr Velazquez for port, planned for 06/17/18. 2. Pleural effusion. 1000 cc's of thin yellow fluid was removed, left side 06/12/18.. 3. Ascites. 255 cc of thin yellow ascites was then withdrawn 06/12/18. 4. Anemia with microcytosis: ferritin and iron panel reveal anemia due to chronic disease. Comment Review of Relevant I have reviewed the following items patrica (where applicable) has been applied. Labs Laboratory Tests Test 06/12/18 13:30 06/12/18 13:45 06/12/18 14:24 06/12/18 16:31 Body Fluid Source Pleural Ascites Body Fluid Color Yellow Yellow Body Fluid Clarity Hazy Hazy Body Fluid pH 7.44 Body Fluid Nucleated Cells 2635 /cmm (Not Established) 900 /cmm (Not Established) Body Fluid Mononuclear WBCs (%) 14 % 18 % Body Fluid Total RBCs Counted 1097 /cmm (Not Established) 200 /cmm (Not Established) Body Fluid Other Cells (%) 86 % 82 % Body Fluid Glucose 190 mg/dL (.) 198 mg/dL (.) Body Fluid Total Protein 3.4 g/dL (.) 3.5 g/dL (.) Body Fluid Lactate Dehydrogenase 209 IU/L (.) 121 IU/L (.) Body Fluid Amylase 56 U/L (.) Glucose (Fingerstick) 166 mg/dL (70-99) 214 mg/dL (70-99) Test 06/12/18 20:20 06/13/18 07:26 06/13/18 11:29 06/13/18 16:48 Glucose (Fingerstick) 237 mg/dL (70-99) 198 mg/dL (70-99) 276 mg/dL (70-99) 259 mg/dL (70-99) Test 06/13/18 20:38 06/14/18 07:38 06/14/18 10:48 Glucose (Fingerstick) 229 mg/dL (70-99) 201 mg/dL (70-99) 268 mg/dL (70-99) Laboratory Tests Test 06/13/18 16:48 06/13/18 20:38 06/14/18 07:38 06/14/18 10:48 Glucose (Fingerstick) 259 mg/dL (70-99) 229 mg/dL (70-99) 201 mg/dL (70-99) 268 mg/dL (70-99) Microbiology 06/11/18 Blood Culture - Preliminary, Resulted NO GROWTH AFTER 2 DAYS 06/12/18 Anaerobic/Aerobic Culture, Resulted Pending 06/12/18 Anaerobic Culture Result 1 (KEISHA), Resulted Pending 06/12/18 Aerobic Culture, Resulted Pending 06/12/18 Aerobic Culture Result 1 (KEISHA), Resulted Pending 06/12/18 Gram Stain - Final, Resulted 06/12/18 Gram Stain Result 1 (KEISHA) - Final, Resulted 06/12/18 Gram Stain Result 2 (KEISHA) - Final, Resulted 06/11/18 Urine Culture - Preliminary, Resulted 06/11/18 Urine Culture Result 1 (KEISHA) - Preliminary, Resulted Medications Current Medications Albuterol/ Ipratropium (Duoneb) 3 ml 1X ONCE NEB Last administered on 06/11/18at 17:19; Start 06/11/18 at 17:15; Stop 06/11/18 at 17:16; Status DC Ondansetron HCl (Zofran) 4 mg PRN Q8HRS PRN IV NAUSEA/VOMITING; Start 06/11/18 at 19:15; Stop 06/12/18 at 19:14; Status DC Morphine Sulfate (Morphine Sulfate) 4 mg PRN Q2HR PRN IV PAIN; Start 06/11/18 at 19:15; Stop 06/12/18 at 19:14; Status DC Acetaminophen (Tylenol) 650 mg PRN Q4HRS PRN PO FEVER; Start 06/11/18 at 19:15; Stop 06/12/18 at 19:14; Status DC Dextrose (Dextrose 50%-Water Syringe) 12.5 gm PRN Q15MIN PRN IV SEE COMMENTS; Start 06/11/18 at 19:15; Status Cancel Insulin Human Regular (HumuLIN R VIAL) 5 unit 1X ONCE IV Last administered on 06/11/18 20:11; Start 06/11/18 at 19:30; Stop 06/11/18 at 19:31; Status DC Albuterol Sulfate (Ventolin Neb Soln) 2.5 mg PRN Q6HRS PRN INH SHORTNESS OF BREATH Last administered on 06/12/18 08:37; Start 06/11/18 at 20:45 Atorvastatin Calcium (Lipitor) 20 mg DAILY PO Last administered on 06/13/18 09:19; Start 06/12/18 at 09:00 Calcium Carbonate/ Glycine (Oscal) 500 mg DAILY PO Last administered on 06/14/18 09:31; Start 06/12/18 at 09:00 Furosemide (Lasix) 40 mg DAILY PO Last administered on 06/14/18 09:31; Start 06/12/18 at 09:00 Acetaminophen/ Hydrocodone Bitart (Lortab 5/325) 1 tab PRN Q6HRS PRN PO PAIN; Start 06/11/18 at 20:45 Losartan Potassium (Cozaar) 50 mg DAILY PO Last administered on 06/14/18 09:31; Start 06/12/18 at 09:00 Vitamin D (Vitamin D3) 2,000 unit DAILY PO Last administered on 06/14/18 09:32; Start 06/12/18 at 09:00 Diltiazem HCl (Cardizem 24hr Cd) 240 mg BID PO Last administered on 06/14/18 09:30; Start 06/11/18 at 21:00 Non-Formulary Medication (Everolimus (Afinitor)) 10 mg DAILY PO ; Start 06/12/18 at 09:00; Stop 06/12/18 at 09:00; Status DC Non-Formulary Medication (Exemestane (Aromasin)) 25 mg DAILY PO ; Start 06/12/18 at 09:00; Stop 06/12/18 at 09:00; Status DC Labetalol HCl (Trandate) 200 mg BID PO Last administered on 06/14/18at 09:32; Start 06/11/18 at 21:00 Non-Formulary Medication (Metformin Hcl ) 1,000 mg BIDWMEALS PO ; Start 06/12/18 at 08:00; Status UNV Montelukast Sodium (Singulair) 10 mg QHS PO Last administered on 06/13/18at 22:05; Start 06/11/18 at 21:00 Naproxen (Naprosyn) 500 mg BID PO Last administered on 06/13/18at 22:05; Start 06/11/18 at 21:00 Insulin Human Lispro (HumaLOG) 0-7 UNITS TIDWMEALS SQ Last administered on 06/14/18 12:29; Start 06/12/18 at 08:00 Dextrose (Dextrose 50%-Water Syringe) 12.5 gm PRN Q15MIN PRN IV SEE COMMENTS; Start 06/11/18 at 20:45 Insulin Glargine (Lantus) 7 units QHS SQ Last administered on 06/13/18at 22:10; Start 06/11/18 at 21:45 Loperamide HCl (Imodium) 2 mg PRN Q15MIN PRN PO DIARRHEA (1st Choice); Start 06/12/18 at 08:45 Diphenoxylate HCl/ Atropine (Lomotil) 1 tab PRN QID PRN PO DIARRHEA (2nd Choice) Last administered on 06/12/18 10:16; Start 06/12/18 at 08:45 Dronabinol (Marinol) 5 mg BIDACLD PO Last administered on 06/13/18 17:12; Start 06/12/18 at 11:30; Stop 06/14/18 at 12:20; Status DC Albumin Human 500 ml @ 125 mls/hr 1X ONCE IV Last administered on 4/24/19at 15:58; Start 06/12/18 at 09:30; Stop 06/12/18 at 13:29; Status DC Pantoprazole Sodium (Protonix) 40 mg DAILYAC PO Last administered on 06/13/18at 07:30; Start 06/12/18 at 11:30; Stop 06/13/18 at 11:24; Status DC Zolpidem Tartrate (Ambien) 5 mg PRN QHS PRN PO INSOMNIA; Start 06/12/18 at 11:30 Mirtazapine (Remeron) 7.5 mg QHS PO Last administered on 06/12/18at 21:18; Start 06/12/18 at 21:00 Mesalamine (Delzicol) 800 mg BID PO Last administered on 06/14/18at 09:31; Start 06/12/18 at 15:00 Albuterol Sulfate (Ventolin Neb Soln) 2.5 mg RTQID NEB Last administered on 06/14/18at 10:51; Start 06/12/18 at 16:00 Budesonide (Pulmicort) 0.5 mg RTBID NEB Last administered on 06/14/18at 08:00; Start 06/12/18 at 20:00 Ondansetron HCl (Zofran) 4 mg STK-MED ONCE .ROUTE ; Start 06/14/18 at 11:10; Stop 06/14/18 at 11:11; Status DC Propofol 20 ml @ As Directed STK-MED ONCE IV ; Start 06/14/18 at 11:10; Stop 06/14/18 at 11:11; Status DC Lidocaine HCl (Lidocaine Pf 2% Vial) 5 ml STK-MED ONCE .ROUTE ; Start 06/14/18 at 11:10; Stop 06/14/18 at 11:11; Status DC Sevoflurane (Ultane) 60 ml STK-MED ONCE IH ; Start 06/14/18 at 11:10; Stop 06/14/18 at 11:11; Status DC Fentanyl Citrate (Fentanyl 2ml Vial) 100 mcg STK-MED ONCE .ROUTE ; Start 06/14/18 at 11:10; Stop 06/14/18 at 11:11; Status DC Succinylcholine Chloride (Anectine) 200 mg STK-MED ONCE .ROUTE ; Start 06/14/18 at 11:10; Stop 06/14/18 at 11:11; Status DC Dexamethasone Sodium Phosphate (Decadron) 4 mg STK-MED ONCE .ROUTE ; Start 06/14/18 at 11:10; Stop 06/14/18 at 11:11; Status DC Glycopyrrolate (Robinul) 1 mg STK-MED ONCE .ROUTE ; Start 06/14/18 at 11:11; Stop 06/14/18 at 11:12; Status DC Neostigmine Methylsulfate (Neostigmine Methylsulfate) 5 mg STK-MED ONCE .ROUTE ; Start 06/14/18 at 11:11; Stop 06/14/18 at 11:12; Status DC Rocuronium [place] (Zemuron) 50 mg STK-MED ONCE .ROUTE ; Start 06/14/18 at 11:11; Stop 06/14/18 at 11:12; Status DC Dronabinol (Marinol) 2.5 mg BIDACLD PO ; Start 06/14/18 at 16:30; Stop 06/14/18 at 16:35 Active Scripts Active Reported Mag-Oxide (Magnesium Oxide) 400 Mg Tablet Tradjenta (Linagliptin) 5 Mg Tablet Tradjenta (Linagliptin) 5 Mg Tablet Lantus Solostar (Insulin Glargine,Hum.rec.anlog) 100 Unit/1 Ml Insuln.pen Diltiazem 24Hr Cd (Diltiazem HCl) 240 Mg Cap.er.24h Losartan Potassium 50 Mg Tablet Metformin Hcl Er (Metformin Hcl) 500 Mg Tab.er.24h Klor-Con 10 (Potassium Chloride) 10 Meq Tablet.er Atorvastatin Calcium 20 Mg Tablet Furosemide 40 Mg Tablet Mirtazapine 30 Mg Tablet Afinitor (Everolimus) 2.5 Mg Tablet Afinitor (Everolimus) 10 Mg Tablet 10 Mg PO DAILY Aromasin (Exemestane) 25 Mg Tablet 25 Mg PO DAILY Xgeva (Denosumab) 120 Mg/1.7 Ml Vial 120 Mg SQ MONTHLY Aleve (Naproxen Sodium) 220 Mg Tablet 440 Mg PO BID Vitamin D3 (Cholecalciferol (Vitamin D3)) 2,000 Unit Tablet 2,000 Unit PO DAILY Calcium (Calcium Carbonate) 500 Mg Tablet 500 Mg PO DAILY Cardizem Cd (Diltiazem Hcl) 240 Mg Cap.er.24h 1 Cap PO BID Hydrocodone-Apap 5-325 (Hydrocodone Bit/Acetaminophen) 1 Each Tablet 1 Tab PO PRN Q6HRS PRN Metformin Hcl 1,000 Mg Tablet 1,000 Mg PO BIDWMEALS Proair Hfa Inhaler (Albuterol Sulfate) 8.5 Gm Hfa.aer.ad 1 Puff INH PRN Q6HRS PRN Losartan Potassium 50 Mg Tablet 50 Mg PO DAILY Montelukast Sodium Tablet (Montelukast Sodium) 10 Mg Tablet 10 Mg PO HS Labetalol Hcl 200 Mg Tablet 200 Mg PO BID Vitals/I & O Vital Sign - Last 24 Hours 06/13/18 06/13/18 06/13/18 06/13/18 15:00 15:56 18:23 19:00 Temp 98.2 98.4 98.2 98.4 Pulse 100 103 Resp 21 18 B/P (MAP) 107/42 (63) 130/65 (86) Pulse Ox 90 97 O2 Delivery Room Air Nasal Cannula Nasal Cannula Nasal Cannula O2 Flow Rate 2.0 2.0 2.0 06/13/18 06/13/18 06/13/18 06/13/18 20:00 22:05 22:06 23:00 Temp 98.0 98.0 Pulse 103 103 102 Resp 18 B/P (MAP) 130/65 130/65 124/53 (76) Pulse Ox 97 O2 Delivery Nasal Cannula Nasal Cannula O2 Flow Rate 2.0 2.0 06/14/18 06/14/18 06/14/18 06/14/18 03:00 07:00 08:00 09:30 Temp 98.0 98.6 98.0 98.6 Pulse 100 100 100 Resp 18 20 B/P (MAP) 119/55 (76) 130/55 (80) 130/55 Pulse Ox 98 96 O2 Delivery Nasal Cannula Nasal Cannula Nasal Cannula O2 Flow Rate 2.0 2.0 2.0 06/14/18 06/14/18 06/14/18 06/14/18 09:31 09:32 10:52 11:00 Temp 98.2 98.2 Pulse 100 100 94 Resp 20 B/P (MAP) 130/55 130/55 122/50 (74) Pulse Ox 96 95 O2 Delivery Nasal Cannula Nasal Cannula O2 Flow Rate 2.0 2.0 Intake and Output 406/13/18 06/14/18 15:00 23:00 07:00 Intake Total 300 ml 440 ml 120 ml Output Total 0 ml 1 ml Balance 300 ml 439 ml 120 ml Nutrition Consultation Dietary Evaluation: Recommendations by RD: Increase Calorie Intake, Protein supplementation Comments: liberlize diet to regular, monitor BS vanilla ensure tid Expected Outcomes/Goals: to meet > 75% est nutr needs Malnutrition Findings: Body Fat Depletion (Non Severe: Mild Depletion Weight Status: Underweight FRANKIE MUNROE MD Jun 14, 2018 13:15
--- NOTE | 2018-06-14 14:22 | PDOC ---
Provider Note Provider Note SURG home today back Sunday as an outpatient for port placement MICHELLE AGUERO MD Jun 14, 2018 14:22
--- NOTE | 2018-06-14 15:35 | NUR ---
Discharge Note: JAYLEEN MOTLEY Discharge instructions and discharge home medications reviewed with Patient and a copy given. All questions have been answered and understanding verbalized. The following instructions and handouts were given: Patient visit report, Rx information, patient care instructions Discontinued lines and drains: peripheral IV, tip intact. Patient discharged to home with home health via private vehicle. Pt left alert, oriented, and with all personal belongings.
--- NOTE | 2018-06-14 16:26 | NUR ---
Post dc note: MAILE notified by Carmela from [facility], pt's family was calling requesting for them to set up home 02. Carmela reported pt's family had stated pt was sent with Rx for home 02 and was told Home health will arrange 02. MAILE reviewed chart and pt was on 2L 02 but 6 min walk was never ordered and there is no note indicating if pt was taken off from 02 to see if 02 went down. MIALE was also not aware/notified that pt needed home 02 or given Rx for home 02. Discussed with Carmela, to qualify for home 02, 6 min walk order/or a note regarding pt's 02 rate without oxygen needs to be completed. MAILE informed Carmela to notify pt to come back to [facility] if she is having difficultly breathing. Carmela reported she will call pt and notify them. Spoke with Jocelin from [facility], phone: [phone], fax: [phone], preferred provider for [facility]. She reported testing is required for them to arrange home o2 or pt will have to be responsible. MAILE provided [facility] contact info to 5N charge nurse. Charge Nurse attempting to see if family can bring pt back for testing.
[2018-06-14] MEDS ORDERED: DRONABINOL 2.5 MG CAPSULE. PO SCH (16:30)
--- NOTE | 2018-06-14 20:45 | NUR ---
Patient arrived to room 519 via wheelchair at approximately 2030 accompanied by transport and family members. Patient transferred to bed successfully. Answered questions from family members with patient's permission. Will return with meds.
[2018-06-14 20:55] VITALS: BP 135/60
[2018-06-14] MEDS: MIRTAZAPINE 7.5 MG TABLET. PO SCH (21:30)
[2018-06-14] MEDS: MONTELUKAST SODIUM 10 MG TABLET. PO SCH (21:31)
[2018-06-14] MEDS: INSULIN GLARGINE 300 UNITS/3 ML INSULN.PEN. SQ SCH (22:12)
[2018-06-14 23:21] VITALS: BP 126/53
[2018-06-15] VITALS (12 sets, daily range): BP systolic 112–137; BP diastolic 49–57
[2018-06-15 04:44] LABS: BASO % 1 % (0-3); EOS # 0.1 x10^3/uL (0.0-0.7); EOS % 2 % (0-3); LYMPH # 0.2 x10^3/uL (1.0-4.8); LYMPH % 8 % (24-48); MEAN CORPUSCULAR HEMOGLOBIN 25 pg (25-35); MEAN CORPUSCULAR HGB CONC 32 g/dL (31-37); MEAN CORPUSCULAR VOLUME 78 fL (79-100); MONO # 0.3 x10^3/uL (0.0-1.1); MONO % 11 % (0-9); NEUT # 2.2 x10^3uL (1.8-7.7); NEUT % 78 % (31-73); PLATELET COUNT 179 x10^3/uL (140-400); RED BLOOD COUNT 2.65 x10^6/uL (3.50-5.40); RED CELL DISTRIBUTION WIDTH 20.7 % (11.5-14.5); WHITE BLOOD COUNT 2.8 x10^3/uL (4.0-11.0)
[2018-06-15 04:50] LABS: HEMATOCRIT 20.7 % (36.0-47.0); HEMOGLOBIN 6.7 g/dL (12.0-15.5)
[2018-06-15 05:00] LABS: GFR 65.2; POTASSIUM 3.7 mmol/L (3.5-5.1)
[2018-06-15] MEDS: ALBUTEROL SULFATE 2.5 MG/3 ML NEBU. NEB SCH ×4 (07:39→19:40)
[2018-06-15] MEDS: BUDESONIDE 0.5 MG/2 ML NEBU. NEB SCH ×2 (07:40→19:40)
[2018-06-15] MEDS: INSULIN LISPRO 300 UNITS/3 ML INSULN.PEN. SQ SCH ×3 (07:58→17:34)
[2018-06-15] MEDS: MESALAMINE 400 MG CAP.DRTAB. PO SCH ×2 (08:08→21:32)
[2018-06-15] MEDS: CALCIUM CARBONATE 500 MG TABLET PO SCH (08:09)
[2018-06-15] MEDS: LOSARTAN POTASSIUM 50 MG TABLET. PO SCH (08:09)
[2018-06-15] MEDS: LABETALOL HCL 200 MG TABLET PO SCH ×2 (08:09→21:33)
[2018-06-15] MEDS: CHOLECALCIFEROL (VITAMIN D3) 1,000 UNIT TABLET PO SCH (08:09)
[2018-06-15] MEDS: FUROSEMIDE 40 MG TABLET. PO SCH (08:10)
[2018-06-15] MEDS: ATORVASTATIN CALCIUM 20 MG TABLET PO SCH (08:12)
[2018-06-15] MEDS: NAPROXEN 500 MG TABLET PO SCH ×2 (08:12→21:32)
--- NOTE | 2018-06-15 10:48 | PDOC ---
PROGRESS NOTES Chief Complaint Chief Complaint SOB, abdominal distention History of Present Illness History of Present Illness The patient was seen resting in bed today. d/w son Andrez were in the room They had many concerns about their mother. spent a significant amount of time answering their questions. We discussed her swollen legs, her diabetes, abdominal distension, pathology report, fluid shifts, appetite stimulation, and home O2. Large bilateral pleural effusions and associated bibasilar compressive atelectasis or consolidative lung infiltrates. Worsening anemia bone scan indicated progressive disease UNCONTROLLED GLUCOSE transfuse one unit PRBC'S TODAY SS INSULIN PORT PLACEMENT SUNDAY PLANNED 43 MIN PT EXAM, CHART REVIEW, > 50% OF TIME SPENT WITH EXAM, CHART REVIEW, PT CARE COORDINATION Vitals Vitals Vital Signs Date Time Temp Pulse Resp B/P (MAP) Pulse Ox O2 Delivery O2 Flow Rate FiO2 06/15/18 09:14 97.8 95 20 137/54 97.8 06/15/18 08:10 100 Nasal Cannula 2.0 Physical Exam General: Alert, Oriented X3, Cooperative, mild distress Heart: Regular rate, Normal S1, Normal S2 Lungs: Crackles, Other (No rales or rhonchi) Abdomen: Normal bowel sounds, Soft, No tenderness, No masses, Other (distended) Extremities: No cyanosis, No edema, Normal pulses, No tenderness/swelling Skin: No rashes, No breakdown, No significant lesion Labs LABS 2 view abdominal series and PA view chest x-ray Clinical indications: Abdominal distention. Shortness of breath. History of asthma. FINDINGS: Contrast is seen throughout the colon and rectum. No obstructive bowel pattern is seen. Air-fluid level is seen within the stomach. No other air-fluid levels are evident. No free air is seen. There are large bilateral pleural effusions with associated compressive atelectasis or consolidative infiltrates within both lung bases. This was seen on a chest CT dated June 11, 2018. Old calcified granulomatous disease is seen. No pneumothorax is evident. The heart size and mediastinum are unremarkable. There are sclerotic lesions of the pelvic bones which correspond to osseous metastatic disease seen on CT study. 2019. IMPRESSION: Large bilateral pleural effusions and associated bibasilar compressive atelectasis or consolidative lung infiltrates. Osseous metastatic disease. Electronically signed by: Amanda Masterson MD (06/12/2018 8:16 AM) [place] [id number] DICTATED and SIGNED BY: AMANDA MASTERSON MD Procedure: Ultrasound guided paracentesis Clinical Indication: 78-year-old with abdominal ascites Sedation: Local anesthesia only Antibiotics: None Fluoro Time: None Contrast: Not applicable Sterility: The procedure was performed in its entirety using appropriate elements of sterile technique. Consent: The procedure was explained in its entirety to the patient or the patients designated sales representative supervisor by a member of the treatment team, including a discussion of the risks, benefits and commonly accepted alternatives to the procedure, as well as the expected consequences of no therapy whatsoever. Discussion of the risks included, but was not limited to, those that are most frequent and those that are rare but possibly severe or life-threatening, as well as the possibility of unforeseen complications. Technique and Findings: Following informed consent, the patient was prepped and draped in the usual sterile fashion. Ultrasound interrogation of the abdomen revealed abdominal ascites. A hard copy ultrasound image was recorded. 1% Lidocaine was used to achieve local anesthesia over the area of interest, and a 6 Sinhala [id number] catheter was advanced into the peritoneal cavity under ultrasound guidance. 255 cc of thin yellow ascites was then withdrawn. The catheter was removed and hemostasis was achieved with manual compression. Complications: No immediate Impression: 1. Ultrasound-guided paracentesis as described Laboratory Tests Test 06/14/18 10:48 06/14/18 21:38 06/15/18 03:55 06/15/18 07:49 Glucose (Fingerstick) 268 mg/dL (70-99) 265 mg/dL (70-99) 195 mg/dL (70-99) White Blood Count 2.8 x10^3/uL (4.0-11.0) Red Blood Count 2.65 x10^6/uL (3.50-5.40) Hemoglobin 6.7 g/dL (12.0-15.5) Hematocrit 20.7 % (36.0-47.0) Mean Corpuscular Volume 78 fL (79-100) Mean Corpuscular Hemoglobin 25 pg (25-35) Mean Corpuscular Hemoglobin Concent 32 g/dL (31-37) Red Cell Distribution Width 20.7 % (11.5-14.5) Platelet Count 179 x10^3/uL (140-400) Neutrophils (%) (Auto) 78 % (31-73) Lymphocytes (%) (Auto) 8 % (24-48) Monocytes (%) (Auto) 11 % (0-9) Eosinophils (%) (Auto) 2 % (0-3) Basophils (%) (Auto) 1 % (0-3) Neutrophils # (Auto) 2.2 x10^3uL (1.8-7.7) Lymphocytes # (Auto) 0.2 x10^3/uL (1.0-4.8) Monocytes # (Auto) 0.3 x10^3/uL (0.0-1.1) Eosinophils # (Auto) 0.1 x10^3/uL (0.0-0.7) Basophils # (Auto) 0.0 x10^3/uL (0.0-0.2) Sodium Level 142 mmol/L (136-145) Potassium Level 3.7 mmol/L (3.5-5.1) Chloride Level 109 mmol/L (98-107) Carbon Dioxide Level 24 mmol/L (21-32) Anion Gap 9 (6-14) Blood Urea Nitrogen 35 mg/dL (7-20) Creatinine 1.0 mg/dL (0.6-1.0) Estimated GFR (Cockcroft-Gault) 65.2 Glucose Level 236 mg/dL (70-99) Calcium Level 9.0 mg/dL (8.5-10.1) Assessment and Plan Assessmemt and Plan Problems Medical Problems: (1) Ascites Status: Acute (2) Cholelithiasis Status: Acute (3) Pleural effusion Status: Acute (4) Shortness of breath Status: Acute Comment Review of Relevant I have reviewed the following items patrica (where applicable) has been applied. Labs Laboratory Tests Test 06/13/18 11:29 06/13/18 16:48 06/13/18 20:38 06/14/18 07:38 Glucose (Fingerstick) 276 mg/dL (70-99) 259 mg/dL (70-99) 229 mg/dL (70-99) 201 mg/dL (70-99) Test 06/14/18 10:48 06/14/18 21:38 06/15/18 03:55 06/15/18 07:49 Glucose (Fingerstick) 268 mg/dL (70-99) 265 mg/dL (70-99) 195 mg/dL (70-99) White Blood Count 2.8 x10^3/uL (4.0-11.0) Red Blood Count 2.65 x10^6/uL (3.50-5.40) Hemoglobin 6.7 g/dL (12.0-15.5) Hematocrit 20.7 % (36.0-47.0) Mean Corpuscular Volume 78 fL (79-100) Mean Corpuscular Hemoglobin 25 pg (25-35) Mean Corpuscular Hemoglobin Concent 32 g/dL (31-37) Red Cell Distribution Width 20.7 % (11.5-14.5) Platelet Count 179 x10^3/uL (140-400) Neutrophils (%) (Auto) 78 % (31-73) Lymphocytes (%) (Auto) 8 % (24-48) Monocytes (%) (Auto) 11 % (0-9) Eosinophils (%) (Auto) 2 % (0-3) Basophils (%) (Auto) 1 % (0-3) Neutrophils # (Auto) 2.2 x10^3uL (1.8-7.7) Lymphocytes # (Auto) 0.2 x10^3/uL (1.0-4.8) Monocytes # (Auto) 0.3 x10^3/uL (0.0-1.1) Eosinophils # (Auto) 0.1 x10^3/uL (0.0-0.7) Basophils # (Auto) 0.0 x10^3/uL (0.0-0.2) Sodium Level 142 mmol/L (136-145) Potassium Level 3.7 mmol/L (3.5-5.1) Chloride Level 109 mmol/L (98-107) Carbon Dioxide Level 24 mmol/L (21-32) Anion Gap 9 (6-14) Blood Urea Nitrogen 35 mg/dL (7-20) Creatinine 1.0 mg/dL (0.6-1.0) Estimated GFR (Cockcroft-Gault) 65.2 Glucose Level 236 mg/dL (70-99) Calcium Level 9.0 mg/dL (8.5-10.1) Laboratory Tests Test 06/14/18 10:48 06/14/18 21:38 06/15/18 03:55 06/15/18 07:49 Glucose (Fingerstick) 268 mg/dL (70-99) 265 mg/dL (70-99) 195 mg/dL (70-99) White Blood Count 2.8 x10^3/uL (4.0-11.0) Red Blood Count 2.65 x10^6/uL (3.50-5.40) Hemoglobin 6.7 g/dL (12.0-15.5) Hematocrit 20.7 % (36.0-47.0) Mean Corpuscular Volume 78 fL (79-100) Mean Corpuscular Hemoglobin 25 pg (25-35) Mean Corpuscular Hemoglobin Concent 32 g/dL (31-37) Red Cell Distribution Width 20.7 % (11.5-14.5) Platelet Count 179 x10^3/uL (140-400) Neutrophils (%) (Auto) 78 % (31-73) Lymphocytes (%) (Auto) 8 % (24-48) Monocytes (%) (Auto) 11 % (0-9) Eosinophils (%) (Auto) 2 % (0-3) Basophils (%) (Auto) 1 % (0-3) Neutrophils # (Auto) 2.2 x10^3uL (1.8-7.7) Lymphocytes # (Auto) 0.2 x10^3/uL (1.0-4.8) Monocytes # (Auto) 0.3 x10^3/uL (0.0-1.1) Eosinophils # (Auto) 0.1 x10^3/uL (0.0-0.7) Basophils # (Auto) 0.0 x10^3/uL (0.0-0.2) Sodium Level 142 mmol/L (136-145) Potassium Level 3.7 mmol/L (3.5-5.1) Chloride Level 109 mmol/L (98-107) Carbon Dioxide Level 24 mmol/L (21-32) Anion Gap 9 (6-14) Blood Urea Nitrogen 35 mg/dL (7-20) Creatinine 1.0 mg/dL (0.6-1.0) Estimated GFR (Cockcroft-Gault) 65.2 Glucose Level 236 mg/dL (70-99) Calcium Level 9.0 mg/dL (8.5-10.1) Microbiology 06/11/18 Blood Culture - Preliminary, Resulted NO GROWTH AFTER 3 DAYS 06/12/18 Anaerobic/Aerobic Culture, Resulted Pending 06/12/18 Anaerobic Culture Result 1 (KEISHA), Resulted Pending 06/12/18 Aerobic Culture - Preliminary, Resulted 06/12/18 Aerobic Culture Result 1 (KEISHA) - Preliminary, Resulted 06/12/18 Gram Stain - Final, Resulted 06/12/18 Gram Stain Result 1 (KEISHA) - Final, Resulted 06/12/18 Gram Stain Result 2 (KEISHA) - Final, Resulted 06/11/18 Urine Culture - Final, Complete 06/11/18 Urine Culture Result 1 (KEISHA) - Final, Complete 06/11/18 Antimicrobic Susceptibility - Final, Complete Medications Current Medications Albuterol/ Ipratropium (Duoneb) 3 ml 1X ONCE NEB Last administered on 06/11/18at 17:19; Start 06/11/18 at 17:15; Stop 06/11/18 at 17:16; Status DC Ondansetron HCl (Zofran) 4 mg PRN Q8HRS PRN IV NAUSEA/VOMITING; Start 06/11/18 at 19:15; Stop 06/12/18 at 19:14; Status DC Morphine Sulfate (Morphine Sulfate) 4 mg PRN Q2HR PRN IV PAIN; Start 06/11/18 at 19:15; Stop 06/12/18 at 19:14; Status DC Acetaminophen (Tylenol) 650 mg PRN Q4HRS PRN PO FEVER; Start 06/11/18 at 19:15; Stop 06/12/18 at 19:14; Status DC Dextrose (Dextrose 50%-Water Syringe) 12.5 gm PRN Q15MIN PRN IV SEE COMMENTS; Start 06/11/18 at 19:15; Status Cancel Insulin Human Regular (HumuLIN R VIAL) 5 unit 1X ONCE IV Last administered on 06/11/18at 20:11; Start 06/11/18 at 19:30; Stop 06/11/18 at 19:31; Status DC Albuterol Sulfate (Ventolin Neb Soln) 2.5 mg PRN Q6HRS PRN INH SHORTNESS OF BREATH Last administered on 06/12/18at 08:37; Start 06/11/18 at 20:45 Atorvastatin Calcium (Lipitor) 20 mg DAILY PO Last administered on 4/27/19at 08:12; Start 06/12/18 at 09:00 Calcium Carbonate/ Glycine (Oscal) 500 mg DAILY PO Last administered on 06/15/18 08:09; Start 06/12/18 at 09:00 Furosemide (Lasix) 40 mg DAILY PO Last administered on 06/15/18 08:10; Start 06/12/18 at 09:00 Acetaminophen/ Hydrocodone Bitart (Lortab 5/325) 1 tab PRN Q6HRS PRN PO PAIN; Start 06/11/18 at 20:45 Losartan Potassium (Cozaar) 50 mg DAILY PO Last administered on 06/15/18 08:09; Start 06/12/18 at 09:00 Vitamin D (Vitamin D3) 2,000 unit DAILY PO Last administered on 06/15/18 08:09; Start 06/12/18 at 09:00 Diltiazem HCl (Cardizem 24hr Cd) 240 mg BID PO Last administered on 06/15/18 08:09; Start 06/11/18 at 21:00 Non-Formulary Medication (Everolimus (Afinitor)) 10 mg DAILY PO ; Start 06/12/18 at 09:00; Stop 06/12/18 at 09:00; Status DC Non-Formulary Medication (Exemestane (Aromasin)) 25 mg DAILY PO ; Start 06/12/18 at 09:00; Stop 06/12/18 at 09:00; Status DC Labetalol HCl (Trandate) 200 mg BID PO Last administered on 06/15/18 08:09; Start 06/11/18 at 21:00 Non-Formulary Medication (Metformin Hcl ) 1,000 mg BIDWMEALS PO ; Start 06/12/18 at 08:00; Status UNV Montelukast Sodium (Singulair) 10 mg QHS PO Last administered on 06/14/18 21:31; Start 06/11/18 at 21:00 Naproxen (Naprosyn) 500 mg BID PO Last administered on 06/13/18 22:05; Start 06/11/18 at 21:00 Insulin Human Lispro (HumaLOG) 0-7 UNITS TIDWMEALS SQ Last administered on 12:29; Start 06/12/18 at 08:00 Dextrose (Dextrose 50%-Water Syringe) 12.5 gm PRN Q15MIN PRN IV SEE COMMENTS; Start 06/11/18 at 20:45 Insulin Glargine (Lantus) 7 units QHS SQ Last administered on 06/14/18at 22:12; Start 06/11/18 at 21:45 Loperamide HCl (Imodium) 2 mg PRN Q15MIN PRN PO DIARRHEA (1st Choice); Start 06/12/18 at 08:45 Diphenoxylate HCl/ Atropine (Lomotil) 1 tab PRN QID PRN PO DIARRHEA (2nd Choice) Last administered on 06/12/18at 10:16; Start 06/12/18 at 08:45 Dronabinol (Marinol) 5 mg BIDACLD PO Last administered on 06/13/18at 17:12; Start 06/12/18 at 11:30; Stop 06/14/18 at 12:20; Status DC Albumin Human 500 ml @ 125 mls/hr 1X ONCE IV Last administered on 06/12/18at 15:58; Start 06/12/18 at 09:30; Stop 06/12/18 at 13:29; Status DC Pantoprazole Sodium (Protonix) 40 mg DAILYAC PO Last administered on 06/13/18at 07:30; Start 06/12/18 at 11:30; Stop 06/13/18 at 11:24; Status DC Zolpidem Tartrate (Ambien) 5 mg PRN QHS PRN PO INSOMNIA; Start 06/12/18 at 11:30 Mirtazapine (Remeron) 7.5 mg QHS PO Last administered on 06/14/18at 21:30; Start 06/12/18 at 21:00 Mesalamine (Delzicol) 800 mg BID PO Last administered on 06/15/18at 08:08; Start 06/12/18 at 15:00 Albuterol Sulfate (Ventolin Neb Soln) 2.5 mg RTQID NEB Last administered on 06/15/18at 07:39; Start 06/12/18 at 16:00 Budesonide (Pulmicort) 0.5 mg RTBID NEB Last administered on 06/15/18at 07:40; Start 06/12/18 at 20:00 Ondansetron HCl (Zofran) 4 mg STK-MED ONCE .ROUTE ; Start 06/14/18 at 11:10; Stop 06/14/18 at 11:11; Status DC Propofol 20 ml @ As Directed STK-MED ONCE IV ; Start 06/14/18 at 11:10; Stop 06/14/18 at 11:11; Status DC Lidocaine HCl (Lidocaine Pf 2% Vial) 5 ml STK-MED ONCE .ROUTE ; Start 06/14/18 at 11:10; Stop 06/14/18 at 11:11; Status DC Sevoflurane (Ultane) 60 ml STK-MED ONCE IH ; Start 06/14/18 at 11:10; Stop 06/14/18 at 11:11; Status DC Fentanyl Citrate (Fentanyl 2ml Vial) 100 mcg STK-MED ONCE .ROUTE ; Start 06/14/18 at 11:10; Stop 06/14/18 at 11:11; Status DC Succinylcholine Chloride (Anectine) 200 mg STK-MED ONCE .ROUTE ; Start 06/14/18 at 11:10; Stop 06/14/18 at 11:11; Status DC Dexamethasone Sodium Phosphate (Decadron) 4 mg STK-MED ONCE .ROUTE ; Start 06/14/18 at 11:10; Stop 06/14/18 at 11:11; Status DC Glycopyrrolate (Robinul) 1 mg STK-MED ONCE .ROUTE ; Start 06/14/18 at 11:11; Stop 06/14/18 at 11:12; Status DC Neostigmine Methylsulfate (Neostigmine Methylsulfate) 5 mg STK-MED ONCE .ROUTE ; Start 06/14/18 at 11:11; Stop 06/14/18 at 11:12; Status DC Rocuronium [place] (Zemuron) 50 mg STK-MED ONCE .ROUTE ; Start 06/14/18 at 11:11; Stop 06/14/18 at 11:12; Status DC Dronabinol (Marinol) 2.5 mg BIDACLD PO ; Start 06/14/18 at 16:30; Stop 06/14/18 at 16:35; Status DC Active Scripts Active Reported Mag-Oxide (Magnesium Oxide) 400 Mg Tablet Tradjenta (Linagliptin) 5 Mg Tablet Tradjenta (Linagliptin) 5 Mg Tablet Lantus Solostar (Insulin Glargine,Hum.rec.anlog) 100 Unit/1 Ml Insuln.pen Diltiazem 24Hr Cd (Diltiazem HCl) 240 Mg Cap.er.24h Losartan Potassium 50 Mg Tablet Metformin Hcl Er (Metformin Hcl) 500 Mg Tab.er.24h Klor-Con 10 (Potassium Chloride) 10 Meq Tablet.er Atorvastatin Calcium 20 Mg Tablet Furosemide 40 Mg Tablet Mirtazapine 30 Mg Tablet Afinitor (Everolimus) 2.5 Mg Tablet Afinitor (Everolimus) 10 Mg Tablet 10 Mg PO DAILY Aromasin (Exemestane) 25 Mg Tablet 25 Mg PO DAILY Xgeva (Denosumab) 120 Mg/1.7 Ml Vial 120 Mg SQ MONTHLY Aleve (Naproxen Sodium) 220 Mg Tablet 440 Mg PO BID Vitamin D3 (Cholecalciferol (Vitamin D3)) 2,000 Unit Tablet 2,000 Unit PO DAILY Calcium (Calcium Carbonate) 500 Mg Tablet 500 Mg PO DAILY Cardizem Cd (Diltiazem Hcl) 240 Mg Cap.er.24h 1 Cap PO BID Hydrocodone-Apap 5-325 (Hydrocodone Bit/Acetaminophen) 1 Each Tablet 1 Tab PO PRN Q6HRS PRN Metformin Hcl 1,000 Mg Tablet 1,000 Mg PO BIDWMEALS Proair Hfa Inhaler (Albuterol Sulfate) 8.5 Gm Hfa.aer.ad 1 Puff INH PRN Q6HRS PRN Losartan Potassium 50 Mg Tablet 50 Mg PO DAILY Montelukast Sodium Tablet (Montelukast Sodium) 10 Mg Tablet 10 Mg PO HS Labetalol Hcl 200 Mg Tablet 200 Mg PO BID Vitals/I & O Vital Sign - Last 24 Hours 06/14/18 06/14/18 06/14/18 06/14/18 10:52 11:00 19:59 20:00 Temp 98.2 98.2 Pulse 94 Resp 20 B/P (MAP) 122/50 (74) Pulse Ox 96 95 O2 Delivery Nasal Cannula Nasal Cannula Room Air Nasal Cannula O2 Flow Rate 2.0 2.0 2.0 06/14/18 06/14/18 06/14/18 06/14/18 20:55 21:17 21:30 21:31 Temp 98.4 98.4 Pulse 106 106 106 Resp 21 B/P (MAP) 135/60 (85) 135/60 135/60 Pulse Ox 90 94 O2 Delivery Room Air Nasal Cannula O2 Flow Rate 0.5 06/14/18 06/15/18 06/15/18 06/15/18 23:21 03:34 07:00 07:41 Temp 98.7 98.5 98.7 98.5 Pulse 102 96 90 Resp 21 20 16 B/P (MAP) 126/53 (77) 116/54 (74) 126/53 (77) Pulse Ox 93 96 100 100 O2 Delivery Nasal Cannula Nasal Cannula Room Air Nasal Cannula O2 Flow Rate 2.0 2.0 2.0 2.0 06/15/18 06/15/18 06/15/18 06/15/18 08:00 08:09 08:09 08:09 Pulse 90 90 90 B/P (MAP) 126/53 126/53 126/53 O2 Delivery Nasal Cannula O2 Flow Rate 2.0 06/15/18 06/15/18 06/15/18 08:09 08:10 09:14 Temp 98.5 98.5 97.8 98.5 98.5 97.8 Pulse 90 90 95 Resp 20 B/P (MAP) 126/53 (77) 126/53 (77) 137/54 Pulse Ox 100 100 O2 Delivery Nasal Cannula Nasal Cannula O2 Flow Rate 2.0 2.0 Intake and Output 06/14/18 06/14/18 06/15/18 14:59 22:59 06:59 Intake Total 120 ml 150 ml 100 ml Output Total 0 ml Balance 120 ml 150 ml 100 ml Nutrition Consultation Dietary Evaluation: Recommendations by RD: Increase Calorie Intake, Protein supplementation Comments: liberlize diet to regular, monitor BS vanilla ensure tid Expected Outcomes/Goals: to meet > 75% est nutr needs Malnutrition Findings: Body Fat Depletion (Non Severe: Mild Depletion Weight Status: Underweight KOSTAS RODRIGUEZ MD Jun 15, 2018 10:47
--- NOTE | 2018-06-15 11:47 | NUR ---
Patients AM and lunch insulin held due to the fact patient is not eating much and does not have an appetite, Cheyenne HALL notified.
[2018-06-15 14:06] LABS: HEMATOCRIT 28.1 % (36.0-47.0)
[2018-06-15] MEDS: MIRTAZAPINE 7.5 MG TABLET. PO SCH (21:32)
[2018-06-15] MEDS: MONTELUKAST SODIUM 10 MG TABLET. PO SCH (21:32)
[2018-06-15] MEDS: INSULIN GLARGINE 300 UNITS/3 ML INSULN.PEN. SQ SCH (21:37)
[2018-06-16 03:00] VITALS: BP 116/51
[2018-06-16 07:00] VITALS: BP 131/60
[2018-06-16] MEDS: BUDESONIDE 0.5 MG/2 ML NEBU. NEB SCH ×2 (07:42→19:55)
[2018-06-16] MEDS: ALBUTEROL SULFATE 2.5 MG/3 ML NEBU. NEB SCH ×4 (07:42→19:55)
[2018-06-16] MEDS: INSULIN LISPRO 300 UNITS/3 ML INSULN.PEN. SQ SCH ×3 (07:57→17:10)
[2018-06-16 09:33] LABS: BASO % 0 % (0-3); EOS # 0.1 x10^3/uL (0.0-0.7); EOS % 2 % (0-3); HEMATOCRIT 28.5 % (36.0-47.0); HEMOGLOBIN 9.1 g/dL (12.0-15.5); LYMPH # 0.2 x10^3/uL (1.0-4.8); LYMPH % 7 % (24-48); MEAN CORPUSCULAR HEMOGLOBIN 25 pg (25-35); MEAN CORPUSCULAR HGB CONC 32 g/dL (31-37); MEAN CORPUSCULAR VOLUME 79 fL (79-100); MONO # 0.4 x10^3/uL (0.0-1.1); MONO % 11 % (0-9); NEUT # 2.9 x10^3uL (1.8-7.7); NEUT % 81 % (31-73); PLATELET COUNT 210 x10^3/uL (140-400); RED BLOOD COUNT 3.59 x10^6/uL (3.50-5.40); RED CELL DISTRIBUTION WIDTH 19.6 % (11.5-14.5); WHITE BLOOD COUNT 3.6 x10^3/uL (4.0-11.0)
[2018-06-16 09:34] LABS: ALBUMIN 2.3 g/dL (3.4-5.0); ALBUMIN/GLOBULIN RATIO 0.6 (1.0-1.7); CALCIUM 9.3 mg/dL (8.5-10.1); CREATININE 0.9 mg/dL (0.6-1.0); GFR 73.7; POTASSIUM 3.6 mmol/L (3.5-5.1); TOTAL BILIRUBIN 0.3 mg/dL (0.2-1.0); TOTAL PROTEIN 5.9 g/dL (6.4-8.2)
[2018-06-16 11:00] VITALS: BP 123/55
[2018-06-16] MEDS: AMINO AC 3%/ELECTROLYTE/GLYCER 1,000 ML IV SCH (11:13)
[2018-06-16] MEDS: NAPROXEN 500 MG TABLET PO SCH ×2 (11:21→20:47)
[2018-06-16] MEDS: LABETALOL HCL 200 MG TABLET PO SCH ×2 (11:21→20:46)
[2018-06-16] MEDS: CHOLECALCIFEROL (VITAMIN D3) 1,000 UNIT TABLET PO SCH (11:22)
[2018-06-16] MEDS: MESALAMINE 400 MG CAP.DRTAB. PO SCH ×2 (11:22→20:46)
[2018-06-16] MEDS: LOSARTAN POTASSIUM 50 MG TABLET. PO SCH (11:23)
[2018-06-16] MEDS: CALCIUM CARBONATE 500 MG TABLET PO SCH (11:23)
[2018-06-16] MEDS: DRONABINOL 2.5 MG CAPSULE. PO SCH ×2 (11:24→17:07)
[2018-06-16] MEDS: FUROSEMIDE 40 MG TABLET. PO SCH (11:24)
[2018-06-16] MEDS: ATORVASTATIN CALCIUM 20 MG TABLET PO SCH (11:24)
--- NOTE | 2018-06-16 13:52 | PDOC ---
PROGRESS NOTES Chief Complaint Chief Complaint SOB, abdominal distention acute hypoxic respiratory failure, metastatic breast cancer pleural effusion, malignant Dm1, insulin, + SSI home meds chroinc htn, diastolic CHF, echo severe malnutrition History of Present Illness History of Present Illness Large bilateral pleural effusions and associated bibasilar compressive atelectasis or consolidative lung infiltrates. anemia bone scan indicated progressive disease blood sugar high, but will be NPO in the AM PORT PLACEMENT SUNDAY PLANNED Vitals Vitals Vital Signs Date Time Temp Pulse Resp B/P (MAP) Pulse Ox O2 Delivery O2 Flow Rate FiO2 06/16/18 12:32 Room Air 06/16/18 11:23 99 123/55 06/16/18 11:00 98.3 20 94 98.3 06/15/18 15:00 2.0 Physical Exam General: Alert, Oriented X3, Cooperative, mild distress Heart: Regular rate, Normal S1, Normal S2 Lungs: Crackles, Other (No rales or rhonchi) Abdomen: Normal bowel sounds, Soft, No tenderness, No masses, Other (distended) Extremities: No cyanosis, No edema, Normal pulses, No tenderness/swelling Skin: No rashes, No breakdown, No significant lesion Labs LABS Laboratory Tests Test 06/15/18 16:36 06/15/18 21:09 06/16/18 07:31 06/16/18 08:56 Glucose (Fingerstick) 220 mg/dL (70-99) 208 mg/dL (70-99) 186 mg/dL (70-99) White Blood Count 3.6 x10^3/uL (4.0-11.0) Red Blood Count 3.59 x10^6/uL (3.50-5.40) Hemoglobin 9.1 g/dL (12.0-15.5) Hematocrit 28.5 % (36.0-47.0) Mean Corpuscular Volume 79 fL (79-100) Mean Corpuscular Hemoglobin 25 pg (25-35) Mean Corpuscular Hemoglobin Concent 32 g/dL (31-37) Red Cell Distribution Width 19.6 % (11.5-14.5) Platelet Count 210 x10^3/uL (140-400) Neutrophils (%) (Auto) 81 % (31-73) Lymphocytes (%) (Auto) 7 % (24-48) Monocytes (%) (Auto) 11 % (0-9) Eosinophils (%) (Auto) 2 % (0-3) Basophils (%) (Auto) 0 % (0-3) Neutrophils # (Auto) 2.9 x10^3uL (1.8-7.7) Lymphocytes # (Auto) 0.2 x10^3/uL (1.0-4.8) Monocytes # (Auto) 0.4 x10^3/uL (0.0-1.1) Eosinophils # (Auto) 0.1 x10^3/uL (0.0-0.7) Basophils # (Auto) 0.0 x10^3/uL (0.0-0.2) Sodium Level 145 mmol/L (136-145) Potassium Level 3.6 mmol/L (3.5-5.1) Chloride Level 110 mmol/L (98-107) Carbon Dioxide Level 23 mmol/L (21-32) Anion Gap 12 (6-14) Blood Urea Nitrogen 31 mg/dL (7-20) Creatinine 0.9 mg/dL (0.6-1.0) Estimated GFR (Cockcroft-Gault) 73.7 BUN/Creatinine Ratio 34 (6-20) Glucose Level 261 mg/dL (70-99) Calcium Level 9.3 mg/dL (8.5-10.1) Total Bilirubin 0.3 mg/dL (0.2-1.0) Aspartate Amino Transf (AST/SGOT) 69 U/L (15-37) Alanine Aminotransferase (ALT/SGPT) 16 U/L (14-59) Alkaline Phosphatase 121 U/L (46-116) Total Protein 5.9 g/dL (6.4-8.2) Albumin 2.3 g/dL (3.4-5.0) Albumin/Globulin Ratio 0.6 (1.0-1.7) Test 06/16/18 11:24 Glucose (Fingerstick) 304 mg/dL (70-99) Assessment and Plan Assessmemt and Plan Problems Medical Problems: (1) Ascites Status: Acute (2) Cholelithiasis Status: Acute (3) Pleural effusion Status: Acute (4) Shortness of breath Status: Acute Comment Review of Relevant I have reviewed the following items patrica (where applicable) has been applied. Labs Laboratory Tests Test 06/14/18 21:38 06/15/18 03:55 06/15/18 07:49 06/15/18 10:51 Glucose (Fingerstick) 265 mg/dL (70-99) 195 mg/dL (70-99) 199 mg/dL (70-99) White Blood Count 2.8 x10^3/uL (4.0-11.0) Red Blood Count 2.65 x10^6/uL (3.50-5.40) Hemoglobin 6.7 g/dL (12.0-15.5) Hematocrit 20.7 % (36.0-47.0) Mean Corpuscular Volume 78 fL (79-100) Mean Corpuscular Hemoglobin 25 pg (25-35) Mean Corpuscular Hemoglobin Concent 32 g/dL (31-37) Red Cell Distribution Width 20.7 % (11.5-14.5) Platelet Count 179 x10^3/uL (140-400) Neutrophils (%) (Auto) 78 % (31-73) Lymphocytes (%) (Auto) 8 % (24-48) Monocytes (%) (Auto) 11 % (0-9) Eosinophils (%) (Auto) 2 % (0-3) Basophils (%) (Auto) 1 % (0-3) Neutrophils # (Auto) 2.2 x10^3uL (1.8-7.7) Lymphocytes # (Auto) 0.2 x10^3/uL (1.0-4.8) Monocytes # (Auto) 0.3 x10^3/uL (0.0-1.1) Eosinophils # (Auto) 0.1 x10^3/uL (0.0-0.7) Basophils # (Auto) 0.0 x10^3/uL (0.0-0.2) Sodium Level 142 mmol/L (136-145) Potassium Level 3.7 mmol/L (3.5-5.1) Chloride Level 109 mmol/L (98-107) Carbon Dioxide Level 24 mmol/L (21-32) Anion Gap 9 (6-14) Blood Urea Nitrogen 35 mg/dL (7-20) Creatinine 1.0 mg/dL (0.6-1.0) Estimated GFR (Cockcroft-Gault) 65.2 Glucose Level 236 mg/dL (70-99) Calcium Level 9.0 mg/dL (8.5-10.1) Test 06/15/18 13:00 06/15/18 16:36 06/15/18 21:09 06/16/18 07:31 Hemoglobin 9.0 g/dL (12.0-15.5) Hematocrit 28.1 % (36.0-47.0) Mean Corpuscular Hemoglobin Concent 32 g/dL (31-37) Glucose (Fingerstick) 220 mg/dL (70-99) 208 mg/dL (70-99) 186 mg/dL (70-99) Test 06/16/18 08:56 06/16/18 11:24 White Blood Count 3.6 x10^3/uL (4.0-11.0) Red Blood Count 3.59 x10^6/uL (3.50-5.40) Hemoglobin 9.1 g/dL (12.0-15.5) Hematocrit 28.5 % (36.0-47.0) Mean Corpuscular Volume 79 fL (79-100) Mean Corpuscular Hemoglobin 25 pg (25-35) Mean Corpuscular Hemoglobin Concent 32 g/dL (31-37) Red Cell Distribution Width 19.6 % (11.5-14.5) Platelet Count 210 x10^3/uL (140-400) Neutrophils (%) (Auto) 81 % (31-73) Lymphocytes (%) (Auto) 7 % (24-48) Monocytes (%) (Auto) 11 % (0-9) Eosinophils (%) (Auto) 2 % (0-3) Basophils (%) (Auto) 0 % (0-3) Neutrophils # (Auto) 2.9 x10^3uL (1.8-7.7) Lymphocytes # (Auto) 0.2 x10^3/uL (1.0-4.8) Monocytes # (Auto) 0.4 x10^3/uL (0.0-1.1) Eosinophils # (Auto) 0.1 x10^3/uL (0.0-0.7) Basophils # (Auto) 0.0 x10^3/uL (0.0-0.2) Sodium Level 145 mmol/L (136-145) Potassium Level 3.6 mmol/L (3.5-5.1) Chloride Level 110 mmol/L (98-107) Carbon Dioxide Level 23 mmol/L (21-32) Anion Gap 12 (6-14) Blood Urea Nitrogen 31 mg/dL (7-20) Creatinine 0.9 mg/dL (0.6-1.0) Estimated GFR (Cockcroft-Gault) 73.7 BUN/Creatinine Ratio 34 (6-20) Glucose Level 261 mg/dL (70-99) Calcium Level 9.3 mg/dL (8.5-10.1) Total Bilirubin 0.3 mg/dL (0.2-1.0) Aspartate Amino Transf (AST/SGOT) 69 U/L (15-37) Alanine Aminotransferase (ALT/SGPT) 16 U/L (14-59) Alkaline Phosphatase 121 U/L (46-116) Total Protein 5.9 g/dL (6.4-8.2) Albumin 2.3 g/dL (3.4-5.0) Albumin/Globulin Ratio 0.6 (1.0-1.7) Glucose (Fingerstick) 304 mg/dL (70-99) Laboratory Tests Test 06/15/18 16:36 06/15/18 21:09 06/16/18 07:31 06/16/18 08:56 Glucose (Fingerstick) 220 mg/dL (70-99) 208 mg/dL (70-99) 186 mg/dL (70-99) White Blood Count 3.6 x10^3/uL (4.0-11.0) Red Blood Count 3.59 x10^6/uL (3.50-5.40) Hemoglobin 9.1 g/dL (12.0-15.5) Hematocrit 28.5 % (36.0-47.0) Mean Corpuscular Volume 79 fL (79-100) Mean Corpuscular Hemoglobin 25 pg (25-35) Mean Corpuscular Hemoglobin Concent 32 g/dL (31-37) Red Cell Distribution Width 19.6 % (11.5-14.5) Platelet Count 210 x10^3/uL (140-400) Neutrophils (%) (Auto) 81 % (31-73) Lymphocytes (%) (Auto) 7 % (24-48) Monocytes (%) (Auto) 11 % (0-9) Eosinophils (%) (Auto) 2 % (0-3) Basophils (%) (Auto) 0 % (0-3) Neutrophils # (Auto) 2.9 x10^3uL (1.8-7.7) Lymphocytes # (Auto) 0.2 x10^3/uL (1.0-4.8) Monocytes # (Auto) 0.4 x10^3/uL (0.0-1.1) Eosinophils # (Auto) 0.1 x10^3/uL (0.0-0.7) Basophils # (Auto) 0.0 x10^3/uL (0.0-0.2) Sodium Level 145 mmol/L (136-145) Potassium Level 3.6 mmol/L (3.5-5.1) Chloride Level 110 mmol/L (98-107) Carbon Dioxide Level 23 mmol/L (21-32) Anion Gap 12 (6-14) Blood Urea Nitrogen 31 mg/dL (7-20) Creatinine 0.9 mg/dL (0.6-1.0) Estimated GFR (Cockcroft-Gault) 73.7 BUN/Creatinine Ratio 34 (6-20) Glucose Level 261 mg/dL (70-99) Calcium Level 9.3 mg/dL (8.5-10.1) Total Bilirubin 0.3 mg/dL (0.2-1.0) Aspartate Amino Transf (AST/SGOT) 69 U/L (15-37) Alanine Aminotransferase (ALT/SGPT) 16 U/L (14-59) Alkaline Phosphatase 121 U/L (46-116) Total Protein 5.9 g/dL (6.4-8.2) Albumin 2.3 g/dL (3.4-5.0) Albumin/Globulin Ratio 0.6 (1.0-1.7) Test 06/16/18 11:24 Glucose (Fingerstick) 304 mg/dL (70-99) Microbiology 06/11/18 Blood Culture - Preliminary, Resulted NO GROWTH AFTER 4 DAYS 06/12/18 Anaerobic/Aerobic Culture, Resulted Pending 06/12/18 Anaerobic Culture Result 1 (KEISHA), Resulted Pending 06/12/18 Aerobic Culture - Final, Resulted 06/12/18 Aerobic Culture Result 1 (KEISHA) - Final, Resulted 06/12/18 Gram Stain - Final, Resulted 06/12/18 Gram Stain Result 1 (KEISHA) - Final, Resulted 06/12/18 Gram Stain Result 2 (KEISHA) - Final, Resulted 06/11/18 Urine Culture - Final, Complete 06/11/18 Urine Culture Result 1 (KEISHA) - Final, Complete 06/11/18 Antimicrobic Susceptibility - Final, Complete Medications Current Medications Albuterol/ Ipratropium (Duoneb) 3 ml 1X ONCE NEB Last administered on 06/11/18at 17:19; Start 06/11/18 at 17:15; Stop 06/11/18 at 17:16; Status DC Ondansetron HCl (Zofran) 4 mg PRN Q8HRS PRN IV NAUSEA/VOMITING; Start 06/11/18 at 19:15; Stop 06/12/18 at 19:14; Status DC Morphine Sulfate (Morphine Sulfate) 4 mg PRN Q2HR PRN IV PAIN; Start 06/11/18 at 19:15; Stop 06/12/18 at 19:14; Status DC Acetaminophen (Tylenol) 650 mg PRN Q4HRS PRN PO FEVER; Start 06/11/18 at 19:15; Stop 06/12/18 at 19:14; Status DC Dextrose (Dextrose 50%-Water Syringe) 12.5 gm PRN Q15MIN PRN IV SEE COMMENTS; Start 06/11/18 at 19:15; Status Cancel Insulin Human Regular (HumuLIN R VIAL) 5 unit 1X ONCE IV Last administered on 06/11/18at 20:11; Start 06/11/18 at 19:30; Stop 06/11/18 at 19:31; Status DC Albuterol Sulfate (Ventolin Neb Soln) 2.5 mg PRN Q6HRS PRN INH SHORTNESS OF BREATH Last administered on 06/12/18at 08:37; Start 06/11/18 at 20:45 Atorvastatin Calcium (Lipitor) 20 mg DAILY PO Last administered on 06/16/18at 11:24; Start 06/12/18 at 09:00 Calcium Carbonate/ Glycine (Oscal) 500 mg DAILY PO Last administered on at 11:23; Start 06/12/18 at 09:00 Furosemide (Lasix) 40 mg DAILY PO Last administered on 06/16/18at 11:24; Start 06/12/18 at 09:00 Acetaminophen/ Hydrocodone Bitart (Lortab 5/325) 1 tab PRN Q6HRS PRN PO PAIN; Start 06/11/18 at 20:45 Losartan Potassium (Cozaar) 50 mg DAILY PO Last administered on 06/16/18 11:23; Start 06/12/18 at 09:00 Vitamin D (Vitamin D3) 2,000 unit DAILY PO Last administered on 06/16/18 11:22; Start 06/12/18 at 09:00 Diltiazem HCl (Cardizem 24hr Cd) 240 mg BID PO Last administered on 06/16/18 11:22; Start 06/11/18 at 21:00 Non-Formulary Medication (Everolimus (Afinitor)) 10 mg DAILY PO ; Start 06/12/18 at 09:00; Stop 06/12/18 at 09:00; Status DC Non-Formulary Medication (Exemestane (Aromasin)) 25 mg DAILY PO ; Start 06/12/18 at 09:00; Stop 06/12/18 at 09:00; Status DC Labetalol HCl (Trandate) 200 mg BID PO Last administered on 06/16/18 11:21; Start 06/11/18 at 21:00 Non-Formulary Medication (Metformin Hcl ) 1,000 mg BIDWMEALS PO ; Start 06/12/18 at 08:00; Status UNV Montelukast Sodium (Singulair) 10 mg QHS PO Last administered on 06/15/18at 21:32; Start 06/11/18 at 21:00 Naproxen (Naprosyn) 500 mg BID PO Last administered on 06/16/18 11:21; Start 06/11/18 at 21:00 Insulin Human Lispro (HumaLOG) 0-7 UNITS TIDWMEALS SQ Last administered on 06/16/18 11:27; Start 06/12/18 at 08:00 Dextrose (Dextrose 50%-Water Syringe) 12.5 gm PRN Q15MIN PRN IV SEE COMMENTS; Start 06/11/18 at 20:45 Insulin Glargine (Lantus) 7 units QHS SQ Last administered on 06/15/18at 21:37; Start 06/11/18 at 21:45 Loperamide HCl (Imodium) 2 mg PRN Q15MIN PRN PO DIARRHEA (1st Choice); Start 06/12/18 at 08:45 Diphenoxylate HCl/ Atropine (Lomotil) 1 tab PRN QID PRN PO DIARRHEA (2nd Choice) Last administered on 06/12/18at 10:16; Start 06/12/18 at 08:45 Dronabinol (Marinol) 5 mg BIDACLD PO Last administered on 06/13/18at 17:12; Start 06/12/18 at 11:30; Stop 06/14/18 at 12:20; Status DC Albumin Human 500 ml @ 125 mls/hr 1X ONCE IV Last administered on 06/12/18at 15:58; Start 06/12/18 at 09:30; Stop 06/12/18 at 13:29; Status DC Pantoprazole Sodium (Protonix) 40 mg DAILYAC PO Last administered on 06/13/18 07:30; Start 06/12/18 at 11:30; Stop 06/13/18 at 11:24; Status DC Zolpidem Tartrate (Ambien) 5 mg PRN QHS PRN PO INSOMNIA; Start 06/12/18 at 11:30 Mirtazapine (Remeron) 7.5 mg QHS PO Last administered on 06/15/18at 21:32; Start 06/12/18 at 21:00 Mesalamine (Delzicol) 800 mg BID PO Last administered on 06/16/18 11:22; Start 06/12/18 at 15:00 Albuterol Sulfate (Ventolin Neb Soln) 2.5 mg RTQID NEB Last administered on 06/16/18at 12:32; Start 06/12/18 at 16:00 Budesonide (Pulmicort) 0.5 mg RTBID NEB Last administered on 06/16/18at 07:42; Start 06/12/18 at 20:00 Ondansetron HCl (Zofran) 4 mg STK-MED ONCE .ROUTE ; Start 06/14/18 at 11:10; Stop 06/14/18 at 11:11; Status DC Propofol 20 ml @ As Directed STK-MED ONCE IV ; Start 06/14/18 at 11:10; Stop 06/14/18 at 11:11; Status DC Lidocaine HCl (Lidocaine Pf 2% Vial) 5 ml STK-MED ONCE .ROUTE ; Start 06/14/18 at 11:10; Stop 06/14/18 at 11:11; Status DC Sevoflurane (Ultane) 60 ml STK-MED ONCE IH ; Start 06/14/18 at 11:10; Stop 06/14/18 at 11:11; Status DC Fentanyl Citrate (Fentanyl 2ml Vial) 100 mcg STK-MED ONCE .ROUTE ; Start 06/14/18 at 11:10; Stop 06/14/18 at 11:11; Status DC Succinylcholine Chloride (Anectine) 200 mg STK-MED ONCE .ROUTE ; Start 06/14/18 at 11:10; Stop 06/14/18 at 11:11; Status DC Dexamethasone Sodium Phosphate (Decadron) 4 mg STK-MED ONCE .ROUTE ; Start 06/14/18 at 11:10; Stop 06/14/18 at 11:11; Status DC Glycopyrrolate (Robinul) 1 mg STK-MED ONCE .ROUTE ; Start 06/14/18 at 11:11; Stop 06/14/18 at 11:12; Status DC Neostigmine Methylsulfate (Neostigmine Methylsulfate) 5 mg STK-MED ONCE .ROUTE ; Start 06/14/18 at 11:11; Stop 06/14/18 at 11:12; Status DC Rocuronium Alpine (Zemuron) 50 mg STK-MED ONCE .ROUTE ; Start 06/14/18 at 11:11; Stop 06/14/18 at 11:12; Status DC Dronabinol (Marinol) 2.5 mg BIDACLD PO ; Start 06/14/18 at 16:30; Stop 06/14/18 at 16:35; Status DC Dronabinol (Marinol) 2.5 mg BIDACLD PO Last administered on 06/16/18at 11:24; Start 06/16/18 at 11:30 Amino Acids/ Glycerin/ Electrolytes 1,000 ml @ 80 mls/hr [id number] IV Last administered on 06/16/18at 11:13; Start 06/16/18 at 11:00 Active Scripts Active Reported Mag-Oxide (Magnesium Oxide) 400 Mg Tablet Tradjenta (Linagliptin) 5 Mg Tablet Tradjenta (Linagliptin) 5 Mg Tablet Lantus Solostar (Insulin Glargine,Hum.rec.anlog) 100 Unit/1 Ml Insuln.pen Diltiazem 24Hr Cd (Diltiazem HCl) 240 Mg Cap.er.24h Losartan Potassium 50 Mg Tablet Metformin Hcl Er (Metformin Hcl) 500 Mg Tab.er.24h Klor-Con 10 (Potassium Chloride) 10 Meq Tablet.er Atorvastatin Calcium 20 Mg Tablet Furosemide 40 Mg Tablet Mirtazapine 30 Mg Tablet Afinitor (Everolimus) 2.5 Mg Tablet Afinitor (Everolimus) 10 Mg Tablet 10 Mg PO DAILY Aromasin (Exemestane) 25 Mg Tablet 25 Mg PO DAILY Xgeva (Denosumab) 120 Mg/1.7 Ml Vial 120 Mg SQ MONTHLY Aleve (Naproxen Sodium) 220 Mg Tablet 440 Mg PO BID Vitamin D3 (Cholecalciferol (Vitamin D3)) 2,000 Unit Tablet 2,000 Unit PO DAILY Calcium (Calcium Carbonate) 500 Mg Tablet 500 Mg PO DAILY Cardizem Cd (Diltiazem Hcl) 240 Mg Cap.er.24h 1 Cap PO BID Hydrocodone-Apap 5-325 (Hydrocodone Bit/Acetaminophen) 1 Each Tablet 1 Tab PO PRN Q6HRS PRN Metformin Hcl 1,000 Mg Tablet 1,000 Mg PO BIDWMEALS Proair Hfa Inhaler (Albuterol Sulfate) 8.5 Gm Hfa.aer.ad 1 Puff INH PRN Q6HRS PRN Losartan Potassium 50 Mg Tablet 50 Mg PO DAILY Montelukast Sodium Tablet (Montelukast Sodium) 10 Mg Tablet 10 Mg PO HS Labetalol Hcl 200 Mg Tablet 200 Mg PO BID Vitals/I & O Vital Sign - Last 24 Hours 06/15/18 06/15/18 06/15/18 06/15/18 15:00 16:07 19:00 19:00 Temp 98.9 99.5 99.5 98.9 99.5 99.5 Pulse 90 100 100 Resp 18 18 18 B/P (MAP) 116/49 (71) 120/57 (78) 120/57 (78) Pulse Ox 90 93 93 93 O2 Delivery Room Air Room Air Room Air Room Air O2 Flow Rate 2.0 06/15/18 06/15/18 06/15/18 06/15/18 20:00 21:33 21:33 23:00 Temp 98.8 98.8 Pulse 100 100 95 Resp 18 B/P (MAP) 120/57 120/57 123/57 (79) Pulse Ox 91 O2 Delivery Room Air Room Air 06/16/18 06/16/18 06/16/18 06/16/18 03:00 07:00 07:42 08:00 Temp 98.1 97.5 98.1 97.5 Pulse 93 92 Resp 20 18 B/P (MAP) 116/51 (72) 131/60 (83) Pulse Ox 93 95 96 O2 Delivery Room Air Room Air Room Air Room Air 06/16/18 06/16/18 06/16/18 06/16/18 11:00 11:21 11:22 11:23 Temp 98.3 98.3 Pulse 99 99 99 99 Resp 20 B/P (MAP) 123/55 (77) 123/55 123/55 123/55 Pulse Ox 94 06/16/18 12:32 O2 Delivery Room Air Intake and Output 06/15/18 06/15/18 06/16/18 15:00 23:00 07:00 Intake Total 110 ml 200 ml 250 ml Output Total 0 ml Balance 110 ml 200 ml 250 ml Nutrition Consultation Dietary Evaluation: Recommendations by RD: Increase Calorie Intake, Protein supplementation Comments: liberlize diet to regular, monitor BS vanilla ensure tid Expected Outcomes/Goals: to meet > 75% est nutr needs Malnutrition Findings: Body Fat Depletion (Non Severe: Mild Depletion Weight Status: Underweight ALIX NORTON MD Jun 16, 2018 13:52
[2018-06-16 15:00] VITALS: BP 94/41
[2018-06-16 19:00] VITALS: BP 126/75
[2018-06-16] MEDS: MONTELUKAST SODIUM 10 MG TABLET. PO SCH (20:46)
[2018-06-16] MEDS: MIRTAZAPINE 7.5 MG TABLET. PO SCH (20:46)
[2018-06-16] MEDS: INSULIN GLARGINE 300 UNITS/3 ML INSULN.PEN. SQ SCH (20:51)
[2018-06-16 23:00] VITALS: BP 118/51
[2018-06-17] MEDS: AMINO AC 3%/ELECTROLYTE/GLYCER 1,000 ML IV SCH ×2 (02:50→23:05)
[2018-06-17 03:00] VITALS: BP 129/73
[2018-06-17] MEDS ORDERED: ceFAZolin SODIUM 3 GM in IV DEXTROSE 5% 100ML 100 ML IV PRN (06:00)
[2018-06-17 07:00] VITALS: BP 120/51
[2018-06-17] MEDS ORDERED: HEPARIN SODIUM 5,000 UNIT in IV NORMAL SALINE 500ML BAG 500 ML IRR ONE (07:00)
[2018-06-17] MEDS: BUDESONIDE 0.5 MG/2 ML NEBU. NEB SCH ×2 (08:00→19:38)
[2018-06-17] MEDS: INSULIN LISPRO 300 UNITS/3 ML INSULN.PEN. SQ SCH ×5 (08:27→17:03)
--- NOTE | 2018-06-17 08:45 | NUR ---
SW following pt. Spoke with RN and pt has been doing well on Room air. Pt has also worked with PT and had walked pretty well. RN reported pt will get a port placement today.
[2018-06-17] MEDS: ALBUTEROL SULFATE 2.5 MG/3 ML NEBU. NEB SCH ×4 (08:48→19:38)
[2018-06-17] MEDS ORDERED: PROPOFOL 10 MG/ML (20ML) VIAL. IV ONE (09:00)
[2018-06-17] MEDS: NAPROXEN 500 MG TABLET PO SCH ×2 (09:00→21:00)
[2018-06-17] MEDS ORDERED: PHENYLEPHRINE in 0.9% NACL PF 1 MG/10 ML SYRINGE. IV ONE (09:00)
[2018-06-17] MEDS ORDERED: GLYCOPYRROLATE 1 MG/5 ML VIAL. ONE (09:00)
[2018-06-17] MEDS ORDERED: SEVOFLURANE 31 TO 60 MINUTES. IH ONE (09:00)
[2018-06-17] MEDS: LOSARTAN POTASSIUM 50 MG TABLET. PO SCH (09:00)
[2018-06-17] MEDS ORDERED: DEXAMETHASONE SOD PHOS 4 MG/ML VIAL ONE (09:00)
[2018-06-17] MEDS ORDERED: NEOSTIGMINE METHYLSULFATE 5 MG/5 ML SYRINGE. ONE (09:00)
--- NOTE | 2018-06-17 09:32 | PDOC ---
PULMONARY PROGRESS NOTES Subjective PT LESS SOA Vitals Vital Signs Date Time Temp Pulse Resp B/P (MAP) Pulse Ox O2 Delivery O2 Flow Rate FiO2 06/17/18 08:51 97 Room Air 06/17/18 07:00 98.0 95 14 120/51 (74) 98.0 ROS: No Nausea, No Chest Pain, No Abdominal Pain, No Increase Cough Lungs: Crackles, Other (No rales or rhonchi) Cardiovascular: S1, S2 Abdomen: Soft Neuro Exam: Alert Extremities: No Edema Skin: Warm Labs Laboratory Tests Test 06/15/18 10:51 06/15/18 13:00 06/15/18 16:36 06/15/18 21:09 Glucose (Fingerstick) 199 mg/dL (70-99) 220 mg/dL (70-99) 208 mg/dL (70-99) Hemoglobin 9.0 g/dL (12.0-15.5) Hematocrit 28.1 % (36.0-47.0) Mean Corpuscular Hemoglobin Concent 32 g/dL (31-37) Test 06/16/18 07:31 06/16/18 08:56 06/16/18 11:24 06/16/18 16:54 Glucose (Fingerstick) 186 mg/dL (70-99) 304 mg/dL (70-99) 282 mg/dL (70-99) White Blood Count 3.6 x10^3/uL (4.0-11.0) Red Blood Count 3.59 x10^6/uL (3.50-5.40) Hemoglobin 9.1 g/dL (12.0-15.5) Hematocrit 28.5 % (36.0-47.0) Mean Corpuscular Volume 79 fL (79-100) Mean Corpuscular Hemoglobin 25 pg (25-35) Mean Corpuscular Hemoglobin Concent 32 g/dL (31-37) Red Cell Distribution Width 19.6 % (11.5-14.5) Platelet Count 210 x10^3/uL (140-400) Neutrophils (%) (Auto) 81 % (31-73) Lymphocytes (%) (Auto) 7 % (24-48) Monocytes (%) (Auto) 11 % (0-9) Eosinophils (%) (Auto) 2 % (0-3) Basophils (%) (Auto) 0 % (0-3) Neutrophils # (Auto) 2.9 x10^3uL (1.8-7.7) Lymphocytes # (Auto) 0.2 x10^3/uL (1.0-4.8) Monocytes # (Auto) 0.4 x10^3/uL (0.0-1.1) Eosinophils # (Auto) 0.1 x10^3/uL (0.0-0.7) Basophils # (Auto) 0.0 x10^3/uL (0.0-0.2) Sodium Level 145 mmol/L (136-145) Potassium Level 3.6 mmol/L (3.5-5.1) Chloride Level 110 mmol/L (98-107) Carbon Dioxide Level 23 mmol/L (21-32) Anion Gap 12 (6-14) Blood Urea Nitrogen 31 mg/dL (7-20) Creatinine 0.9 mg/dL (0.6-1.0) Estimated GFR (Cockcroft-Gault) 73.7 BUN/Creatinine Ratio 34 (6-20) Glucose Level 261 mg/dL (70-99) Calcium Level 9.3 mg/dL (8.5-10.1) Total Bilirubin 0.3 mg/dL (0.2-1.0) Aspartate Amino Transf (AST/SGOT) 69 U/L (15-37) Alanine Aminotransferase (ALT/SGPT) 16 U/L (14-59) Alkaline Phosphatase 121 U/L (46-116) Total Protein 5.9 g/dL (6.4-8.2) Albumin 2.3 g/dL (3.4-5.0) Albumin/Globulin Ratio 0.6 (1.0-1.7) Test 06/16/18 20:40 06/17/18 07:54 Glucose (Fingerstick) 280 mg/dL (70-99) 304 mg/dL (70-99) Laboratory Tests Test 06/16/18 11:24 06/16/18 16:54 06/16/18 20:40 06/17/18 07:54 Glucose (Fingerstick) 304 mg/dL (70-99) 282 mg/dL (70-99) 280 mg/dL (70-99) 304 mg/dL (70-99) Medications Active Scripts Medications Dose Route/Sig Max Daily Dose Days Date Category Mag-Oxide (Magnesium Oxide) 400 Mg Tablet 06/11/18 Reported Tradjenta (Linagliptin) 5 Mg Tablet 06/11/18 Reported Tradjenta (Linagliptin) 5 Mg Tablet 06/11/18 Reported Lantus Solostar (Insulin Glargine,Hum.rec.anlog) 100 Unit/1 Ml Insuln.pen 06/11/18 Reported Diltiazem 24Hr Cd (Diltiazem HCl) 240 Mg Cap.er.24h 06/11/18 Reported Losartan Potassium 50 Mg Tablet 06/11/18 Reported Metformin Hcl Er (Metformin Hcl) 500 Mg Tab.er.24h 06/11/18 Reported Klor-Con 10 (Potassium Chloride) 10 Meq Tablet.er 06/11/18 Reported Atorvastatin Calcium 20 Mg Tablet 06/11/18 Reported Furosemide 40 Mg Tablet 06/11/18 Reported Mirtazapine 30 Mg Tablet 06/11/18 Reported Afinitor (Everolimus) 2.5 Mg Tablet 06/11/18 Reported Afinitor (Everolimus) 10 Mg Tablet 10 Mg PO DAILY 03/07/18 Reported Aromasin (Exemestane) 25 Mg Tablet 25 Mg PO DAILY 03/07/18 Reported Xgeva (Denosumab) 120 Mg/1.7 Ml Vial 120 Mg SQ MONTHLY 03/27/17 Reported Aleve (Naproxen Sodium) 220 Mg Tablet 440 Mg PO BID 03/02/17 Reported Vitamin D3 (Cholecalciferol (Vitamin D3)) 2,000 Unit Tablet 2,000 Unit PO DAILY 03/01/17 Reported Calcium (Calcium Carbonate) 500 Mg Tablet 500 Mg PO DAILY 03/01/17 Reported Cardizem Cd (Diltiazem Hcl) 240 Mg Cap.er.24h 1 Cap PO BID 03/01/17 Reported Hydrocodone-Apap 5-325 (Hydrocodone Bit/Acetaminophen) 1 Each Tablet 1 Tab PO PRN Q6HRS PRN 02/06/17 Reported Metformin Hcl 1,000 Mg Tablet 1,000 Mg PO BIDWMEALS 02/06/17 Reported Proair Hfa Inhaler (Albuterol Sulfate) 8.5 Gm Hfa.aer.ad 1 Puff INH PRN Q6HRS PRN 02/06/17 Reported Losartan Potassium 50 Mg Tablet 50 Mg PO DAILY 02/06/17 Reported Montelukast Sodium Tablet (Montelukast Sodium) 10 Mg Tablet 10 Mg PO HS 02/06/17 Reported Labetalol Hcl 200 Mg Tablet 200 Mg PO BID 02/06/17 Reported Impression . ASSESSMENT: 1. Metastatic breast cancer. 2. Obstructive lung disease with asthma component. 3. History of remote tobacco dependence, in remission. 4. Bilateral effusion MALIGNANT 5. Ascites Plan . spoke with dr Parnell malignant effusion PT AWARE THORACENTESIS WHEN SHE BECOMES SYMPTOMATIC VS PLEREX CATH EMILE SOUTH MD Jun 17, 2018 09:32
[2018-06-17 09:49] LABS: BASO % 0 % (0-3); EOS # 0.1 x10^3/uL (0.0-0.7); EOS % 2 % (0-3); HEMATOCRIT 28.3 % (36.0-47.0); HEMOGLOBIN 9.1 g/dL (12.0-15.5); LYMPH # 0.3 x10^3/uL (1.0-4.8); LYMPH % 9 % (24-48); MEAN CORPUSCULAR HEMOGLOBIN 26 pg (25-35); MEAN CORPUSCULAR HGB CONC 32 g/dL (31-37); MEAN CORPUSCULAR VOLUME 79 fL (79-100); MONO # 0.4 x10^3/uL (0.0-1.1); MONO % 13 % (0-9); NEUT # 2.5 x10^3uL (1.8-7.7); NEUT % 75 % (31-73); PLATELET COUNT 227 x10^3/uL (140-400); RED BLOOD COUNT 3.57 x10^6/uL (3.50-5.40); WHITE BLOOD COUNT 3.4 x10^3/uL (4.0-11.0)
[2018-06-17 09:59] LABS: ALBUMIN 2.4 g/dL (3.4-5.0); ALBUMIN/GLOBULIN RATIO 0.6 (1.0-1.7); CALCIUM 9.6 mg/dL (8.5-10.1); CREATININE 1.1 mg/dL (0.6-1.0); GFR 58.4; POTASSIUM 4.1 mmol/L (3.5-5.1); TOTAL BILIRUBIN 0.3 mg/dL (0.2-1.0); TOTAL PROTEIN 6.3 g/dL (6.4-8.2)
[2018-06-17] MEDS ORDERED: INSULIN LISPRO 300 UNITS/3 ML INSULN.PEN. SQ ONE (10:00)
[2018-06-17 11:00] VITALS: BP 125/59
[2018-06-17] MEDS ORDERED: BUPIVACAINE MPF 0.5% 30 ML VIAL. INJ ONE (12:11)
--- NOTE | 2018-06-17 12:36 | PDOC ---
PROGRESS NOTES Chief Complaint Chief Complaint SOB, abdominal distention acute hypoxic respiratory failure, metastatic breast cancer pleural effusion, malignant Dm1, insulin, + SSI home meds chroinc htn, diastolic CHF, echo severe malnutrition History of Present Illness History of Present Illness plan port placement today blood sugars running high on procalamine increase insulin PT and OT Vitals Vitals Vital Signs Date Time Temp Pulse Resp B/P (MAP) Pulse Ox O2 Delivery O2 Flow Rate FiO2 06/17/18 11:49 99.2 94 20 132/60 94 Room Air 99.2 Physical Exam General: Alert, Oriented X3, Cooperative, mild distress Heart: Regular rate, Normal S1, Normal S2 Lungs: Crackles, Other (No rales or rhonchi) Abdomen: Normal bowel sounds, Soft, No tenderness, No masses, Other (distended) Extremities: No cyanosis, No edema, Normal pulses, No tenderness/swelling Skin: No rashes, No breakdown, No significant lesion Labs LABS Laboratory Tests Test 06/16/18 16:54 06/16/18 20:40 06/17/18 07:54 06/17/18 08:45 Glucose (Fingerstick) 282 mg/dL (70-99) 280 mg/dL (70-99) 304 mg/dL (70-99) White Blood Count 3.4 x10^3/uL (4.0-11.0) Red Blood Count 3.57 x10^6/uL (3.50-5.40) Hemoglobin 9.1 g/dL (12.0-15.5) Hematocrit 28.3 % (36.0-47.0) Mean Corpuscular Volume 79 fL (79-100) Mean Corpuscular Hemoglobin 26 pg (25-35) Mean Corpuscular Hemoglobin Concent 32 g/dL (31-37) Red Cell Distribution Width 20.0 % (11.5-14.5) Platelet Count 227 x10^3/uL (140-400) Neutrophils (%) (Auto) 75 % (31-73) Lymphocytes (%) (Auto) 9 % (24-48) Monocytes (%) (Auto) 13 % (0-9) Eosinophils (%) (Auto) 2 % (0-3) Basophils (%) (Auto) 0 % (0-3) Neutrophils # (Auto) 2.5 x10^3uL (1.8-7.7) Lymphocytes # (Auto) 0.3 x10^3/uL (1.0-4.8) Monocytes # (Auto) 0.4 x10^3/uL (0.0-1.1) Eosinophils # (Auto) 0.1 x10^3/uL (0.0-0.7) Basophils # (Auto) 0.0 x10^3/uL (0.0-0.2) Sodium Level 142 mmol/L (136-145) Potassium Level 4.1 mmol/L (3.5-5.1) Chloride Level 107 mmol/L (98-107) Carbon Dioxide Level 24 mmol/L (21-32) Anion Gap 11 (6-14) Blood Urea Nitrogen 36 mg/dL (7-20) Creatinine 1.1 mg/dL (0.6-1.0) Estimated GFR (Cockcroft-Gault) 58.4 BUN/Creatinine Ratio 33 (6-20) Glucose Level 305 mg/dL (70-99) Calcium Level 9.6 mg/dL (8.5-10.1) Total Bilirubin 0.3 mg/dL (0.2-1.0) Aspartate Amino Transf (AST/SGOT) 55 U/L (15-37) Alanine Aminotransferase (ALT/SGPT) 17 U/L (14-59) Alkaline Phosphatase 129 U/L (46-116) Total Protein 6.3 g/dL (6.4-8.2) Albumin 2.4 g/dL (3.4-5.0) Albumin/Globulin Ratio 0.6 (1.0-1.7) Test 06/17/18 10:12 06/17/18 11:59 Glucose (Fingerstick) 241 mg/dL (70-99) 256 mg/dL (70-99) Assessment and Plan Assessmemt and Plan Problems Medical Problems: (1) Ascites Status: Acute (2) Cholelithiasis Status: Acute (3) Pleural effusion Status: Acute (4) Shortness of breath Status: Acute Comment Review of Relevant I have reviewed the following items patrica (where applicable) has been applied. Labs Laboratory Tests Test 06/15/18 13:00 06/15/18 16:36 06/15/18 21:09 06/16/18 07:31 Hemoglobin 9.0 g/dL (12.0-15.5) Hematocrit 28.1 % (36.0-47.0) Mean Corpuscular Hemoglobin Concent 32 g/dL (31-37) Glucose (Fingerstick) 220 mg/dL (70-99) 208 mg/dL (70-99) 186 mg/dL (70-99) Test 06/16/18 08:56 06/16/18 11:24 06/16/18 16:54 06/16/18 20:40 White Blood Count 3.6 x10^3/uL (4.0-11.0) Red Blood Count 3.59 x10^6/uL (3.50-5.40) Hemoglobin 9.1 g/dL (12.0-15.5) Hematocrit 28.5 % (36.0-47.0) Mean Corpuscular Volume 79 fL (79-100) Mean Corpuscular Hemoglobin 25 pg (25-35) Mean Corpuscular Hemoglobin Concent 32 g/dL (31-37) Red Cell Distribution Width 19.6 % (11.5-14.5) Platelet Count 210 x10^3/uL (140-400) Neutrophils (%) (Auto) 81 % (31-73) Lymphocytes (%) (Auto) 7 % (24-48) Monocytes (%) (Auto) 11 % (0-9) Eosinophils (%) (Auto) 2 % (0-3) Basophils (%) (Auto) 0 % (0-3) Neutrophils # (Auto) 2.9 x10^3uL (1.8-7.7) Lymphocytes # (Auto) 0.2 x10^3/uL (1.0-4.8) Monocytes # (Auto) 0.4 x10^3/uL (0.0-1.1) Eosinophils # (Auto) 0.1 x10^3/uL (0.0-0.7) Basophils # (Auto) 0.0 x10^3/uL (0.0-0.2) Sodium Level 145 mmol/L (136-145) Potassium Level 3.6 mmol/L (3.5-5.1) Chloride Level 110 mmol/L (98-107) Carbon Dioxide Level 23 mmol/L (21-32) Anion Gap 12 (6-14) Blood Urea Nitrogen 31 mg/dL (7-20) Creatinine 0.9 mg/dL (0.6-1.0) Estimated GFR (Cockcroft-Gault) 73.7 BUN/Creatinine Ratio 34 (6-20) Glucose Level 261 mg/dL (70-99) Calcium Level 9.3 mg/dL (8.5-10.1) Total Bilirubin 0.3 mg/dL (0.2-1.0) Aspartate Amino Transf (AST/SGOT) 69 U/L (15-37) Alanine Aminotransferase (ALT/SGPT) 16 U/L (14-59) Alkaline Phosphatase 121 U/L (46-116) Total Protein 5.9 g/dL (6.4-8.2) Albumin 2.3 g/dL (3.4-5.0) Albumin/Globulin Ratio 0.6 (1.0-1.7) Glucose (Fingerstick) 304 mg/dL (70-99) 282 mg/dL (70-99) 280 mg/dL (70-99) Test 06/17/18 07:54 06/17/18 08:45 06/17/18 10:12 06/17/18 11:59 Glucose (Fingerstick) 304 mg/dL (70-99) 241 mg/dL (70-99) 256 mg/dL (70-99) White Blood Count 3.4 x10^3/uL (4.0-11.0) Red Blood Count 3.57 x10^6/uL (3.50-5.40) Hemoglobin 9.1 g/dL (12.0-15.5) Hematocrit 28.3 % (36.0-47.0) Mean Corpuscular Volume 79 fL (79-100) Mean Corpuscular Hemoglobin 26 pg (25-35) Mean Corpuscular Hemoglobin Concent 32 g/dL (31-37) Red Cell Distribution Width 20.0 % (11.5-14.5) Platelet Count 227 x10^3/uL (140-400) Neutrophils (%) (Auto) 75 % (31-73) Lymphocytes (%) (Auto) 9 % (24-48) Monocytes (%) (Auto) 13 % (0-9) Eosinophils (%) (Auto) 2 % (0-3) Basophils (%) (Auto) 0 % (0-3) Neutrophils # (Auto) 2.5 x10^3uL (1.8-7.7) Lymphocytes # (Auto) 0.3 x10^3/uL (1.0-4.8) Monocytes # (Auto) 0.4 x10^3/uL (0.0-1.1) Eosinophils # (Auto) 0.1 x10^3/uL (0.0-0.7) Basophils # (Auto) 0.0 x10^3/uL (0.0-0.2) Sodium Level 142 mmol/L (136-145) Potassium Level 4.1 mmol/L (3.5-5.1) Chloride Level 107 mmol/L (98-107) Carbon Dioxide Level 24 mmol/L (21-32) Anion Gap 11 (6-14) Blood Urea Nitrogen 36 mg/dL (7-20) Creatinine 1.1 mg/dL (0.6-1.0) Estimated GFR (Cockcroft-Gault) 58.4 BUN/Creatinine Ratio 33 (6-20) Glucose Level 305 mg/dL (70-99) Calcium Level 9.6 mg/dL (8.5-10.1) Total Bilirubin 0.3 mg/dL (0.2-1.0) Aspartate Amino Transf (AST/SGOT) 55 U/L (15-37) Alanine Aminotransferase (ALT/SGPT) 17 U/L (14-59) Alkaline Phosphatase 129 U/L (46-116) Total Protein 6.3 g/dL (6.4-8.2) Albumin 2.4 g/dL (3.4-5.0) Albumin/Globulin Ratio 0.6 (1.0-1.7) Laboratory Tests Test 06/16/18 16:54 06/16/18 20:40 06/17/18 07:54 06/17/18 08:45 Glucose (Fingerstick) 282 mg/dL (70-99) 280 mg/dL (70-99) 304 mg/dL (70-99) White Blood Count 3.4 x10^3/uL (4.0-11.0) Red Blood Count 3.57 x10^6/uL (3.50-5.40) Hemoglobin 9.1 g/dL (12.0-15.5) Hematocrit 28.3 % (36.0-47.0) Mean Corpuscular Volume 79 fL (79-100) Mean Corpuscular Hemoglobin 26 pg (25-35) Mean Corpuscular Hemoglobin Concent 32 g/dL (31-37) Red Cell Distribution Width 20.0 % (11.5-14.5) Platelet Count 227 x10^3/uL (140-400) Neutrophils (%) (Auto) 75 % (31-73) Lymphocytes (%) (Auto) 9 % (24-48) Monocytes (%) (Auto) 13 % (0-9) Eosinophils (%) (Auto) 2 % (0-3) Basophils (%) (Auto) 0 % (0-3) Neutrophils # (Auto) 2.5 x10^3uL (1.8-7.7) Lymphocytes # (Auto) 0.3 x10^3/uL (1.0-4.8) Monocytes # (Auto) 0.4 x10^3/uL (0.0-1.1) Eosinophils # (Auto) 0.1 x10^3/uL (0.0-0.7) Basophils # (Auto) 0.0 x10^3/uL (0.0-0.2) Sodium Level 142 mmol/L (136-145) Potassium Level 4.1 mmol/L (3.5-5.1) Chloride Level 107 mmol/L (98-107) Carbon Dioxide Level 24 mmol/L (21-32) Anion Gap 11 (6-14) Blood Urea Nitrogen 36 mg/dL (7-20) Creatinine 1.1 mg/dL (0.6-1.0) Estimated GFR (Cockcroft-Gault) 58.4 BUN/Creatinine Ratio 33 (6-20) Glucose Level 305 mg/dL (70-99) Calcium Level 9.6 mg/dL (8.5-10.1) Total Bilirubin 0.3 mg/dL (0.2-1.0) Aspartate Amino Transf (AST/SGOT) 55 U/L (15-37) Alanine Aminotransferase (ALT/SGPT) 17 U/L (14-59) Alkaline Phosphatase 129 U/L (46-116) Total Protein 6.3 g/dL (6.4-8.2) Albumin 2.4 g/dL (3.4-5.0) Albumin/Globulin Ratio 0.6 (1.0-1.7) Test 06/17/18 10:12 06/17/18 11:59 Glucose (Fingerstick) 241 mg/dL (70-99) 256 mg/dL (70-99) Microbiology 06/11/18 Blood Culture - Final, Complete NO GROWTH AFTER 5 DAYS 06/12/18 Anaerobic/Aerobic Culture - Final, Complete 06/12/18 Anaerobic Culture Result 1 (KEISHA) - Final, Complete 06/12/18 Aerobic Culture - Final, Complete 06/12/18 Aerobic Culture Result 1 (KEISHA) - Final, Complete 06/12/18 Gram Stain - Final, Complete 06/12/18 Gram Stain Result 1 (KEISHA) - Final, Complete 06/12/18 Gram Stain Result 2 (KEISHA) - Final, Complete 06/11/18 Urine Culture - Final, Complete 06/11/18 Urine Culture Result 1 (KEISHA) - Final, Complete 06/11/18 Antimicrobic Susceptibility - Final, Complete Medications Current Medications Albuterol/ Ipratropium (Duoneb) 3 ml 1X ONCE NEB Last administered on 06/11/18at 17:19; Start 06/11/18 at 17:15; Stop 06/11/18 at 17:16; Status DC Ondansetron HCl (Zofran) 4 mg PRN Q8HRS PRN IV NAUSEA/VOMITING; Start 06/11/18 at 19:15; Stop 06/12/18 at 19:14; Status DC Morphine Sulfate (Morphine Sulfate) 4 mg PRN Q2HR PRN IV PAIN; Start 06/11/18 at 19:15; Stop 06/12/18 at 19:14; Status DC Acetaminophen (Tylenol) 650 mg PRN Q4HRS PRN PO FEVER; Start 06/11/18 at 19:15; Stop 06/12/18 at 19:14; Status DC Dextrose (Dextrose 50%-Water Syringe) 12.5 gm PRN Q15MIN PRN IV SEE COMMENTS; Start 06/11/18 at 19:15; Status Cancel Insulin Human Regular (HumuLIN R VIAL) 5 unit 1X ONCE IV Last administered on 06/11/18at 20:11; Start 06/11/18 at 19:30; Stop 06/11/18 at 19:31; Status DC Albuterol Sulfate (Ventolin Neb Soln) 2.5 mg PRN Q6HRS PRN INH SHORTNESS OF BREATH Last administered on 06/12/18 08:37; Start 06/11/18 at 20:45 Atorvastatin Calcium (Lipitor) 20 mg DAILY PO Last administered on 06/16/18 11:24; Start 06/12/18 at 09:00 Calcium Carbonate/ Glycine (Oscal) 500 mg DAILY PO Last administered on 11:23; Start 06/12/18 at 09:00 Furosemide (Lasix) 40 mg DAILY PO Last administered on 06/16/18 11:24; Start 06/12/18 at 09:00 Acetaminophen/ Hydrocodone Bitart (Lortab 5/325) 1 tab PRN Q6HRS PRN PO PAIN; Start 06/11/18 at 20:45 Losartan Potassium (Cozaar) 50 mg DAILY PO Last administered on 06/16/18 11:23; Start 06/12/18 at 09:00 Vitamin D (Vitamin D3) 2,000 unit DAILY PO Last administered on 06/16/18 11:22; Start 06/12/18 at 09:00 Diltiazem HCl (Cardizem 24hr Cd) 240 mg BID PO Last administered on 06/16/18 20:46; Start 06/11/18 at 21:00 Non-Formulary Medication (Everolimus (Afinitor)) 10 mg DAILY PO ; Start 06/12/18 at 09:00; Stop 06/12/18 at 09:00; Status DC Non-Formulary Medication (Exemestane (Aromasin)) 25 mg DAILY PO ; Start 06/12/18 at 09:00; Stop 06/12/18 at 09:00; Status DC Labetalol HCl (Trandate) 200 mg BID PO Last administered on 06/16/18 20:46; Start 06/11/18 at 21:00 Non-Formulary Medication (Metformin Hcl ) 1,000 mg BIDWMEALS PO ; Start 06/12/18 at 08:00; Status UNV Montelukast Sodium (Singulair) 10 mg QHS PO Last administered on 06/16/18 20:46; Start 06/11/18 at 21:00 Naproxen (Naprosyn) 500 mg BID PO Last administered on 4/28/19at 11:21; Start 06/11/18 at 21:00 Insulin Human Lispro (HumaLOG) 0-7 UNITS TIDWMEALS SQ Last administered on 06/17/18 08:27; Start 06/12/18 at 08:00 Dextrose (Dextrose 50%-Water Syringe) 12.5 gm PRN Q15MIN PRN IV SEE COMMENTS; Start 06/11/18 at 20:45 Insulin Glargine (Lantus) 7 units QHS SQ Last administered on 06/16/18 20:51; Start 06/11/18 at 21:45; Stop 06/17/18 at 09:53; Status DC Loperamide HCl (Imodium) 2 mg PRN Q15MIN PRN PO DIARRHEA (1st Choice); Start 06/12/18 at 08:45 Diphenoxylate HCl/ Atropine (Lomotil) 1 tab PRN QID PRN PO DIARRHEA (2nd Choice) Last administered on 06/12/18 10:16; Start 06/12/18 at 08:45 Dronabinol (Marinol) 5 mg BIDACLD PO Last administered on 06/13/18 17:12; Start 06/12/18 at 11:30; Stop 06/14/18 at 12:20; Status DC Albumin Human 500 ml @ 125 mls/hr 1X ONCE IV Last administered on 06/12/18 15:58; Start 06/12/18 at 09:30; Stop 06/12/18 at 13:29; Status DC Pantoprazole Sodium (Protonix) 40 mg DAILYAC PO Last administered on 06/13/18 07:30; Start 06/12/18 at 11:30; Stop 06/13/18 at 11:24; Status DC Zolpidem Tartrate (Ambien) 5 mg PRN QHS PRN PO INSOMNIA; Start 06/12/18 at 11:30 Mirtazapine (Remeron) 7.5 mg QHS PO Last administered on 06/16/18 20:46; Start 06/12/18 at 21:00 Mesalamine (Delzicol) 800 mg BID PO Last administered on 06/16/18 20:46; Start 06/12/18 at 15:00 Albuterol Sulfate (Ventolin Neb Soln) 2.5 mg RTQID NEB Last administered on 06/17/18at 08:48; Start 06/12/18 at 16:00 Budesonide (Pulmicort) 0.5 mg RTBID NEB Last administered on 06/17/18at 08:00; Start 06/12/18 at 20:00 Ondansetron HCl (Zofran) 4 mg STK-MED ONCE .ROUTE ; Start 06/14/18 at 11:10; Stop 06/14/18 at 11:11; Status DC Propofol 20 ml @ As Directed STK-MED ONCE IV ; Start 06/14/18 at 11:10; Stop at 11:11; Status DC Lidocaine HCl (Lidocaine Pf 2% Vial) 5 ml STK-MED ONCE .ROUTE ; Start 06/14/18 at 11:10; Stop 06/14/18 at 11:11; Status DC Sevoflurane (Ultane) 60 ml STK-MED ONCE IH ; Start 06/14/18 at 11:10; Stop 06/14/18 at 11:11; Status DC Fentanyl Citrate (Fentanyl 2ml Vial) 100 mcg STK-MED ONCE .ROUTE ; Start 06/14/18 at 11:10; Stop 06/14/18 at 11:11; Status DC Succinylcholine Chloride (Anectine) 200 mg STK-MED ONCE .ROUTE ; Start 06/14/18 at 11:10; Stop 06/14/18 at 11:11; Status DC Dexamethasone Sodium Phosphate (Decadron) 4 mg STK-MED ONCE .ROUTE ; Start 06/14/18 at 11:10; Stop 06/14/18 at 11:11; Status DC Glycopyrrolate (Robinul) 1 mg STK-MED ONCE .ROUTE ; Start 06/14/18 at 11:11; Stop 06/14/18 at 11:12; Status DC Neostigmine Methylsulfate (Neostigmine Methylsulfate) 5 mg STK-MED ONCE .ROUTE ; Start 06/14/18 at 11:11; Stop 06/14/18 at 11:12; Status DC Rocuronium [place] (Zemuron) 50 mg STK-MED ONCE .ROUTE ; Start 06/14/18 at 11:11; Stop 06/14/18 at 11:12; Status DC Dronabinol (Marinol) 2.5 mg BIDACLD PO ; Start 06/14/18 at 16:30; Stop 06/14/18 at 16:35; Status DC Dronabinol (Marinol) 2.5 mg BIDACLD PO Last administered on 06/16/18at 17:07; Start 06/16/18 at 11:30 Amino Acids/ Glycerin/ Electrolytes 1,000 ml @ 80 mls/hr [id number] IV Last administered on 06/17/18at 02:50; Start 06/16/18 at 11:00 Cefazolin Sodium 3 gm/Dextrose 100 ml @ 200 mls/hr 1X PREOP PRN IV protocol; Start 06/17/18 at 06:00; Stop 06/17/18 at 15:00; Status Cancel Insulin Glargine (Lantus) 14 units QHS SQ ; Start 06/17/18 at 21:00 Insulin Human Lispro (HumaLOG) 5 units TIDWMEALS SQ ; Start 06/17/18 at 12:00 Insulin Human Lispro (HumaLOG) 10 units 1X ONCE SQ ; Start 06/17/18 at 10:00; Stop 06/17/18 at 10:01; Status DC Cefazolin Sodium 50 ml @ 100 mls/hr 1X ONCE IV Last administered on 06/17/18at 11:59; Start 06/17/18 at 12:15; Stop 06/17/18 at 12:44 Active Scripts Active Reported Mag-Oxide (Magnesium Oxide) 400 Mg Tablet Tradjenta (Linagliptin) 5 Mg Tablet Tradjenta (Linagliptin) 5 Mg Tablet Lantus Solostar (Insulin Glargine,Hum.rec.anlog) 100 Unit/1 Ml Insuln.pen Diltiazem 24Hr Cd (Diltiazem HCl) 240 Mg Cap.er.24h Losartan Potassium 50 Mg Tablet Metformin Hcl Er (Metformin Hcl) 500 Mg Tab.er.24h Klor-Con 10 (Potassium Chloride) 10 Meq Tablet.er Atorvastatin Calcium 20 Mg Tablet Furosemide 40 Mg Tablet Mirtazapine 30 Mg Tablet Afinitor (Everolimus) 2.5 Mg Tablet Afinitor (Everolimus) 10 Mg Tablet 10 Mg PO DAILY Aromasin (Exemestane) 25 Mg Tablet 25 Mg PO DAILY Xgeva (Denosumab) 120 Mg/1.7 Ml Vial 120 Mg SQ MONTHLY Aleve (Naproxen Sodium) 220 Mg Tablet 440 Mg PO BID Vitamin D3 (Cholecalciferol (Vitamin D3)) 2,000 Unit Tablet 2,000 Unit PO DAILY Calcium (Calcium Carbonate) 500 Mg Tablet 500 Mg PO DAILY Cardizem Cd (Diltiazem Hcl) 240 Mg Cap.er.24h 1 Cap PO BID Hydrocodone-Apap 5-325 (Hydrocodone Bit/Acetaminophen) 1 Each Tablet 1 Tab PO PRN Q6HRS PRN Metformin Hcl 1,000 Mg Tablet 1,000 Mg PO BIDWMEALS Proair Hfa Inhaler (Albuterol Sulfate) 8.5 Gm Hfa.aer.ad 1 Puff INH PRN Q6HRS PRN Losartan Potassium 50 Mg Tablet 50 Mg PO DAILY Montelukast Sodium Tablet (Montelukast Sodium) 10 Mg Tablet 10 Mg PO HS Labetalol Hcl 200 Mg Tablet 200 Mg PO BID Vitals/I & O Vital Sign - Last 24 Hours 06/16/18 06/16/18 06/16/18 06/16/18 15:00 16:45 19:00 19:55 Temp 98.6 97.5 98.6 97.5 Pulse 88 102 Resp 18 17 B/P (MAP) 94/41 (58) 126/75 (92) Pulse Ox 92 93 95 O2 Delivery Room Air Room Air Room Air Room Air 06/16/18 06/16/18 06/16/18 06/16/18 20:11 20:46 20:46 23:00 Temp 98.6 98.6 Pulse 102 102 100 Resp 17 B/P (MAP) 126/75 126/75 118/51 (73) Pulse Ox 93 O2 Delivery Room Air Room Air 06/17/18 06/17/18 06/17/18 06/17/18 03:00 07:00 07:30 08:48 Temp 98.6 98.0 98.6 98.0 Pulse 101 95 Resp 18 14 B/P (MAP) 129/73 (91) 120/51 (74) Pulse Ox 99 96 97 O2 Delivery Room Air Room Air Room Air Room Air 06/17/18 06/17/18 06/17/18 08:51 11:00 11:49 Temp 97.7 99.2 97.7 99.2 Pulse 91 94 Resp 14 20 B/P (MAP) 125/59 (81) 132/60 Pulse Ox 97 95 94 O2 Delivery Room Air Room Air Room Air Intake and Output 06/16/18 06/16/18 06/17/18 15:00 23:00 07:00 Intake Total 400 ml 60 ml 1000 ml Output Total 2 ml Balance 400 ml 60 ml 998 ml Nutrition Consultation Dietary Evaluation: Recommendations by RD: Increase Calorie Intake, Protein supplementation Comments: liberlize diet to regular, monitor BS vanilla ensure tid Expected Outcomes/Goals: to meet > 75% est nutr needs Malnutrition Findings: Body Fat Depletion (Non Severe: Mild Depletion Weight Status: Underweight ALIX NORTON MD Jun 17, 2018 12:36
[2018-06-17] MEDS ORDERED: BUPIVAC MPF-EPI 0.5%-1:200000 30 ML VIAL. INJ ONE (12:44)
--- NOTE | 2018-06-17 13:01 | PDOC ---
BRIEF OPERATIVE NOTE Date: Jun 17, 2018 Pre-Op Diagnosis metastatic breast cancer Post-Op Diagnosis same Procedure Performed placement of right subclavian power port Surgeon Marcus Anesthesia Type: General Blood Loss 5cc IV Fluid 400cc Specimens Obtained none Findings post op CXR shows tip of catheter in SVC without evidence of pneumothorax Complications none Operative Note Wk # [id number] MICHELLE AGUERO MD Jun 17, 2018 13:01
[2018-06-17] MEDS ORDERED: INSULIN LISPRO 100 UNIT/ML 3ML VIAL. SQ ONE (13:45)
[2018-06-17] MEDS: CHOLECALCIFEROL (VITAMIN D3) 1,000 UNIT TABLET PO SCH (14:40)
[2018-06-17] MEDS: CALCIUM CARBONATE 500 MG TABLET PO SCH (14:40)
[2018-06-17] MEDS: MESALAMINE 400 MG CAP.DRTAB. PO SCH ×2 (14:41→21:08)
[2018-06-17] MEDS: DRONABINOL 2.5 MG CAPSULE. PO SCH ×2 (14:41→16:56)
[2018-06-17] MEDS: ATORVASTATIN CALCIUM 20 MG TABLET PO SCH (14:43)
[2018-06-17] MEDS: LABETALOL HCL 200 MG TABLET PO SCH ×2 (14:44→21:00)
[2018-06-17] MEDS: FUROSEMIDE 40 MG TABLET. PO SCH (14:44)
[2018-06-17] MEDS ORDERED: RINGERS LACTATED IV ONE (14:45)
[2018-06-17 15:00] VITALS: BP 116/51
[2018-06-17] MEDS: SIMETHICONE 80 MG TAB.CHEW PO PRN (15:16)
--- NOTE | 2018-06-17 18:02 | OP ---
DATE OF SURGERY: 06/17/2018 PREOPERATIVE DIAGNOSIS: Metastatic breast cancer, needing venous access. POSTOPERATIVE DIAGNOSIS: Metastatic breast cancer, needing venous access. PROCEDURE: Placement of a right subclavian PowerPort. SURGEON: Michelle Aguero MD ANESTHESIA: General endotracheal. BLOOD LOSS: 5. INTRAVENOUS FLUIDS: 400. INDICATIONS: The patient is a 78-year-old with metastatic breast cancer and is being offered chemotherapy. She needs a port for treatment. DESCRIPTION OF PROCEDURE: The patient brought to the operating suite. General endotracheal anesthetic given. The chest was prepped and draped in usual sterile fashion. A 0.5% Marcaine plain was infiltrated a fingerbreadth below the clavicle at the junction medial two-thirds and lateral third on the right. Small incision was made and a seeker needle was used to access the subclavian vein. A guidewire was advanced through the needle under fluoroscopic observation and the needle was removed. Pocket incision was then made with 0.5% Marcaine with epinephrine. Catheter laid on the patient's chest and with fluoroscopy guidance cut to an appropriate length. It was then tunneled from the insertion site to the pocket site where it was attached to the reservoir. The reservoir was seated into the pocket and with the table in steep Trendelenburg, under fluoroscopic observation, the dilator and sheath were passed over the wire. The wire was removed, the dilator was removed and the catheter was threaded through the sheath and the sheath was then removed. Good flow into and out of the catheter at completion. Table returned to level. Pocket incision closed with interrupted 3-0 Vicryl, followed by subcuticular 4-0 Monocryl. Steri-Strips and sterile dressing applied. Prior to dressing, a final flush of heparinized saline showed a blood flash with aspiration and flushed easily. Postop upright chest x-ray showed the tip of the catheter to reside in the superior vena cava without evidence of pneumothorax. The patient was taken to the postop area in stable condition. MICHELLE AGUERO MD DR: RYNE/az JOB#: [id number] / [id number]
[2018-06-17 19:00] VITALS: BP 116/54
[2018-06-17] MEDS ORDERED: INSULIN GLARGINE 300 UNITS/3 ML INSULN.PEN. SQ SCH (21:00)
[2018-06-17] MEDS: MONTELUKAST SODIUM 10 MG TABLET. PO SCH (21:09)
[2018-06-17] MEDS: MIRTAZAPINE 7.5 MG TABLET. PO SCH (21:09)
[2018-06-17 22:51] VITALS: BP 119/57
[2018-06-18] MEDS: AMINO AC 3%/ELECTROLYTE/GLYCER 1,000 ML IV SCH (00:30)
[2018-06-18 02:58] VITALS: BP 119/55
[2018-06-18 04:30] LABS: BASO % 0 % (0-3); EOS % 0 % (0-3); HEMATOCRIT 25.4 % (36.0-47.0); HEMOGLOBIN 8.2 g/dL (12.0-15.5); LYMPH # 0.2 x10^3/uL (1.0-4.8); LYMPH % 5 % (24-48); MEAN CORPUSCULAR HEMOGLOBIN 26 pg (25-35); MEAN CORPUSCULAR HGB CONC 32 g/dL (31-37); MEAN CORPUSCULAR VOLUME 79 fL (79-100); MONO # 0.3 x10^3/uL (0.0-1.1); MONO % 7 % (0-9); NEUT # 3.5 x10^3uL (1.8-7.7); NEUT % 88 % (31-73); PLATELET COUNT 209 x10^3/uL (140-400); RED CELL DISTRIBUTION WIDTH 19.2 % (11.5-14.5)
[2018-06-18 05:25] LABS: CALCIUM 9.3 mg/dL (8.5-10.1); GFR 65.2; POTASSIUM 5.2 mmol/L (3.5-5.1)
[2018-06-18 07:00] VITALS: BP 118/56
[2018-06-18] MEDS: ALBUTEROL SULFATE 2.5 MG/3 ML NEBU. NEB SCH ×4 (08:07→19:30)
[2018-06-18] MEDS: BUDESONIDE 0.5 MG/2 ML NEBU. NEB SCH ×2 (08:07→19:30)
--- NOTE | 2018-06-18 08:53 | PDOC ---
PROGRESS NOTES Subjective Subjective HPI - f/u of Metastatic breast cancer ROS - no dyspnea Objective Objective Vital Signs Date Time Temp Pulse Resp B/P (MAP) Pulse Ox O2 Delivery O2 Flow Rate FiO2 06/18/18 08:07 97 Nasal Cannula 1.0 06/18/18 07:00 98.3 90 20 118/56 (76) 98.3 Intake and Output 06/18/18 07:00 Intake Total 500 ml Output Total 10 ml Balance 490 ml Intake Oral 50 ml IV Total 450 ml Output Urine Total 0 ml Estimated Blood Loss 10 ml # Voids 2 # Bowel Movements 1 Physical Exam Heart: Normal S1, Normal S2 General: Alert, Oriented X3, No acute distress Lungs: Clear to auscultation, Normal air movement Neuro: Normal speech Psych/Mental Status: Mental status NL Assessment Assessment Problems Medical Problems: (1) Ascites Status: Acute (2) Cholelithiasis Status: Acute (3) Pleural effusion Status: Acute (4) Shortness of breath Status: Acute Assessment and Plan: She is a 78-year-old female with metastatic breast cancer to the bones and ascites and pleural effusions 1. Metastatic breast cancer: Concern for progressive disease (on bone scan and fluid accumulation possibly) as well as side effects from treatment, will hold exemestane and everolimus, Plan abraxane chemo as outpt 06/21/18. Consulted Dr Velazquez for port, s/p port on 06/17/18. 2. Pleural effusion. 1000 cc's of thin yellow fluid was removed, left side 06/12/18.. 3. Ascites. 255 cc of thin yellow ascites was then withdrawn 06/12/18. 4. Anemia with microcytosis: ferritin and iron panel reveal anemia due to chronic disease. Comment Review of Relevant I have reviewed the following items patrica (where applicable) has been applied. Labs Laboratory Tests Test 06/16/18 08:56 06/16/18 11:24 06/16/18 16:54 06/16/18 20:40 White Blood Count 3.6 x10^3/uL (4.0-11.0) Red Blood Count 3.59 x10^6/uL (3.50-5.40) Hemoglobin 9.1 g/dL (12.0-15.5) Hematocrit 28.5 % (36.0-47.0) Mean Corpuscular Volume 79 fL (79-100) Mean Corpuscular Hemoglobin 25 pg (25-35) Mean Corpuscular Hemoglobin Concent 32 g/dL (31-37) Red Cell Distribution Width 19.6 % (11.5-14.5) Platelet Count 210 x10^3/uL (140-400) Neutrophils (%) (Auto) 81 % (31-73) Lymphocytes (%) (Auto) 7 % (24-48) Monocytes (%) (Auto) 11 % (0-9) Eosinophils (%) (Auto) 2 % (0-3) Basophils (%) (Auto) 0 % (0-3) Neutrophils # (Auto) 2.9 x10^3uL (1.8-7.7) Lymphocytes # (Auto) 0.2 x10^3/uL (1.0-4.8) Monocytes # (Auto) 0.4 x10^3/uL (0.0-1.1) Eosinophils # (Auto) 0.1 x10^3/uL (0.0-0.7) Basophils # (Auto) 0.0 x10^3/uL (0.0-0.2) Sodium Level 145 mmol/L (136-145) Potassium Level 3.6 mmol/L (3.5-5.1) Chloride Level 110 mmol/L (98-107) Carbon Dioxide Level 23 mmol/L (21-32) Anion Gap 12 (6-14) Blood Urea Nitrogen 31 mg/dL (7-20) Creatinine 0.9 mg/dL (0.6-1.0) Estimated GFR (Cockcroft-Gault) 73.7 BUN/Creatinine Ratio 34 (6-20) Glucose Level 261 mg/dL (70-99) Calcium Level 9.3 mg/dL (8.5-10.1) Total Bilirubin 0.3 mg/dL (0.2-1.0) Aspartate Amino Transf (AST/SGOT) 69 U/L (15-37) Alanine Aminotransferase (ALT/SGPT) 16 U/L (14-59) Alkaline Phosphatase 121 U/L (46-116) Total Protein 5.9 g/dL (6.4-8.2) Albumin 2.3 g/dL (3.4-5.0) Albumin/Globulin Ratio 0.6 (1.0-1.7) Glucose (Fingerstick) 304 mg/dL (70-99) 282 mg/dL (70-99) 280 mg/dL (70-99) Test 06/17/18 07:54 06/17/18 08:45 06/17/18 10:12 06/17/18 11:59 Glucose (Fingerstick) 304 mg/dL (70-99) 241 mg/dL (70-99) 256 mg/dL (70-99) White Blood Count 3.4 x10^3/uL (4.0-11.0) Red Blood Count 3.57 x10^6/uL (3.50-5.40) Hemoglobin 9.1 g/dL (12.0-15.5) Hematocrit 28.3 % (36.0-47.0) Mean Corpuscular Volume 79 fL (79-100) Mean Corpuscular Hemoglobin 26 pg (25-35) Mean Corpuscular Hemoglobin Concent 32 g/dL (31-37) Red Cell Distribution Width 20.0 % (11.5-14.5) Platelet Count 227 x10^3/uL (140-400) Neutrophils (%) (Auto) 75 % (31-73) Lymphocytes (%) (Auto) 9 % (24-48) Monocytes (%) (Auto) 13 % (0-9) Eosinophils (%) (Auto) 2 % (0-3) Basophils (%) (Auto) 0 % (0-3) Neutrophils # (Auto) 2.5 x10^3uL (1.8-7.7) Lymphocytes # (Auto) 0.3 x10^3/uL (1.0-4.8) Monocytes # (Auto) 0.4 x10^3/uL (0.0-1.1) Eosinophils # (Auto) 0.1 x10^3/uL (0.0-0.7) Basophils # (Auto) 0.0 x10^3/uL (0.0-0.2) Sodium Level 142 mmol/L (136-145) Potassium Level 4.1 mmol/L (3.5-5.1) Chloride Level 107 mmol/L (98-107) Carbon Dioxide Level 24 mmol/L (21-32) Anion Gap 11 (6-14) Blood Urea Nitrogen 36 mg/dL (7-20) Creatinine 1.1 mg/dL (0.6-1.0) Estimated GFR (Cockcroft-Gault) 58.4 BUN/Creatinine Ratio 33 (6-20) Glucose Level 305 mg/dL (70-99) Calcium Level 9.6 mg/dL (8.5-10.1) Total Bilirubin 0.3 mg/dL (0.2-1.0) Aspartate Amino Transf (AST/SGOT) 55 U/L (15-37) Alanine Aminotransferase (ALT/SGPT) 17 U/L (14-59) Alkaline Phosphatase 129 U/L (46-116) Total Protein 6.3 g/dL (6.4-8.2) Albumin 2.4 g/dL (3.4-5.0) Albumin/Globulin Ratio 0.6 (1.0-1.7) Test 06/17/18 13:04 06/17/18 14:39 06/17/18 16:57 06/17/18 20:44 Glucose (Fingerstick) 261 mg/dL (70-99) 240 mg/dL (70-99) 245 mg/dL (70-99) 276 mg/dL (70-99) Test 06/18/18 03:10 06/18/18 07:17 White Blood Count 4.0 x10^3/uL (4.0-11.0) Red Blood Count 3.20 x10^6/uL (3.50-5.40) Hemoglobin 8.2 g/dL (12.0-15.5) Hematocrit 25.4 % (36.0-47.0) Mean Corpuscular Volume 79 fL (79-100) Mean Corpuscular Hemoglobin 26 pg (25-35) Mean Corpuscular Hemoglobin Concent 32 g/dL (31-37) Red Cell Distribution Width 19.2 % (11.5-14.5) Platelet Count 209 x10^3/uL (140-400) Neutrophils (%) (Auto) 88 % (31-73) Lymphocytes (%) (Auto) 5 % (24-48) Monocytes (%) (Auto) 7 % (0-9) Eosinophils (%) (Auto) 0 % (0-3) Basophils (%) (Auto) 0 % (0-3) Neutrophils # (Auto) 3.5 x10^3uL (1.8-7.7) Lymphocytes # (Auto) 0.2 x10^3/uL (1.0-4.8) Monocytes # (Auto) 0.3 x10^3/uL (0.0-1.1) Eosinophils # (Auto) 0.0 x10^3/uL (0.0-0.7) Basophils # (Auto) 0.0 x10^3/uL (0.0-0.2) Sodium Level 141 mmol/L (136-145) Potassium Level 5.2 mmol/L (3.5-5.1) Chloride Level 107 mmol/L (98-107) Carbon Dioxide Level 23 mmol/L (21-32) Anion Gap 11 (6-14) Blood Urea Nitrogen 39 mg/dL (7-20) Creatinine 1.0 mg/dL (0.6-1.0) Estimated GFR (Cockcroft-Gault) 65.2 Glucose Level 345 mg/dL (70-99) Calcium Level 9.3 mg/dL (8.5-10.1) Glucose (Fingerstick) 337 mg/dL (70-99) Laboratory Tests Test 06/17/18 10:12 06/17/18 11:59 06/17/18 13:04 06/17/18 14:39 Glucose (Fingerstick) 241 mg/dL (70-99) 256 mg/dL (70-99) 261 mg/dL (70-99) 240 mg/dL (70-99) Test 06/17/18 16:57 06/17/18 20:44 06/18/18 03:10 06/18/18 07:17 Glucose (Fingerstick) 245 mg/dL (70-99) 276 mg/dL (70-99) 337 mg/dL (70-99) White Blood Count 4.0 x10^3/uL (4.0-11.0) Red Blood Count 3.20 x10^6/uL (3.50-5.40) Hemoglobin 8.2 g/dL (12.0-15.5) Hematocrit 25.4 % (36.0-47.0) Mean Corpuscular Volume 79 fL (79-100) Mean Corpuscular Hemoglobin 26 pg (25-35) Mean Corpuscular Hemoglobin Concent 32 g/dL (31-37) Red Cell Distribution Width 19.2 % (11.5-14.5) Platelet Count 209 x10^3/uL (140-400) Neutrophils (%) (Auto) 88 % (31-73) Lymphocytes (%) (Auto) 5 % (24-48) Monocytes (%) (Auto) 7 % (0-9) Eosinophils (%) (Auto) 0 % (0-3) Basophils (%) (Auto) 0 % (0-3) Neutrophils # (Auto) 3.5 x10^3uL (1.8-7.7) Lymphocytes # (Auto) 0.2 x10^3/uL (1.0-4.8) Monocytes # (Auto) 0.3 x10^3/uL (0.0-1.1) Eosinophils # (Auto) 0.0 x10^3/uL (0.0-0.7) Basophils # (Auto) 0.0 x10^3/uL (0.0-0.2) Sodium Level 141 mmol/L (136-145) Potassium Level 5.2 mmol/L (3.5-5.1) Chloride Level 107 mmol/L (98-107) Carbon Dioxide Level 23 mmol/L (21-32) Anion Gap 11 (6-14) Blood Urea Nitrogen 39 mg/dL (7-20) Creatinine 1.0 mg/dL (0.6-1.0) Estimated GFR (Cockcroft-Gault) 65.2 Glucose Level 345 mg/dL (70-99) Calcium Level 9.3 mg/dL (8.5-10.1) Microbiology 06/11/18 Blood Culture - Final, Complete NO GROWTH AFTER 5 DAYS 06/12/18 Anaerobic/Aerobic Culture - Final, Complete 06/12/18 Anaerobic Culture Result 1 (KEISHA) - Final, Complete 06/12/18 Aerobic Culture - Final, Complete 06/12/18 Aerobic Culture Result 1 (KEISHA) - Final, Complete 06/12/18 Gram Stain - Final, Complete 06/12/18 Gram Stain Result 1 (KEISHA) - Final, Complete 06/12/18 Gram Stain Result 2 (KEISHA) - Final, Complete 06/11/18 Urine Culture - Final, Complete 06/11/18 Urine Culture Result 1 (KEISHA) - Final, Complete 06/11/18 Antimicrobic Susceptibility - Final, Complete Medications Current Medications Albuterol/ Ipratropium (Duoneb) 3 ml 1X ONCE NEB Last administered on 06/11/18at 17:19; Start 06/11/18 at 17:15; Stop 06/11/18 at 17:16; Status DC Ondansetron HCl (Zofran) 4 mg PRN Q8HRS PRN IV NAUSEA/VOMITING; Start 06/11/18 at 19:15; Stop 06/12/18 at 19:14; Status DC Morphine Sulfate (Morphine Sulfate) 4 mg PRN Q2HR PRN IV PAIN; Start 06/11/18 at 19:15; Stop 06/12/18 at 19:14; Status DC Acetaminophen (Tylenol) 650 mg PRN Q4HRS PRN PO FEVER; Start 06/11/18 at 19:15; Stop 06/12/18 at 19:14; Status DC Dextrose (Dextrose 50%-Water Syringe) 12.5 gm PRN Q15MIN PRN IV SEE COMMENTS; Start 06/11/18 at 19:15; Status Cancel Insulin Human Regular (HumuLIN R VIAL) 5 unit 1X ONCE IV Last administered on 06/11/18at 20:11; Start 06/11/18 at 19:30; Stop 06/11/18 at 19:31; Status DC Albuterol Sulfate (Ventolin Neb Soln) 2.5 mg PRN Q6HRS PRN INH SHORTNESS OF BREATH Last administered on 06/12/18at 08:37; Start 06/11/18 at 20:45 Atorvastatin Calcium (Lipitor) 20 mg DAILY PO Last administered on 06/17/18 14:43; Start 06/12/18 at 09:00 Calcium Carbonate/ Glycine (Oscal) 500 mg DAILY PO Last administered on 06/17/18 14:40; Start 06/12/18 at 09:00 Furosemide (Lasix) 40 mg DAILY PO Last administered on 06/17/18 14:44; Start 06/12/18 at 09:00 Acetaminophen/ Hydrocodone Bitart (Lortab 5/325) 1 tab PRN Q6HRS PRN PO PAIN Last administered on 06/17/18 13:21; Start 06/11/18 at 20:45 Losartan Potassium (Cozaar) 50 mg DAILY PO Last administered on 06/16/18 11:2 3; Start 06/12/18 at 09:00 Vitamin D (Vitamin D3) 2,000 unit DAILY PO Last administered on 06/17/18 14:40; Start 06/12/18 at 09:00 Diltiazem HCl (Cardizem 24hr Cd) 240 mg BID PO Last administered on 06/17/18 21:09; Start 06/11/18 at 21:00 Non-Formulary Medication (Everolimus (Afinitor)) 10 mg DAILY PO ; Start 06/12/18 at 09:00; Stop 06/12/18 at 09:00; Status DC Non-Formulary Medication (Exemestane (Aromasin)) 25 mg DAILY PO ; Start 06/12/18 at 09:00; Stop 06/12/18 at 09:00; Status DC Labetalol HCl (Trandate) 200 mg BID PO Last administered on 06/17/18 14:44; Start 06/11/18 at 21:00 Non-Formulary Medication (Metformin Hcl ) 1,000 mg BIDWMEALS PO ; Start 06/12/18 at 08:00; Status UNV Montelukast Sodium (Singulair) 10 mg QHS PO Last administered on 06/17/18 21:09; Start 06/11/18 at 21:00 Naproxen (Naprosyn) 500 mg BID PO Last administered on 06/16/18at 11:21; Start 06/11/18 at 21:00 Insulin Human Lispro (HumaLOG) 0-7 UNITS TIDWMEALS SQ Last administered on 06/17/18at 17:03; Start 06/12/18 at 08:00 Dextrose (Dextrose 50%-Water Syringe) 12.5 gm PRN Q15MIN PRN IV SEE COMMENTS; Start 06/11/18 at 20:45 Insulin Glargine (Lantus) 7 units QHS SQ Last administered on 06/16/18at 20:51; Start 06/11/18 at 21:45; Stop 06/17/18 at 09:53; Status DC Loperamide HCl (Imodium) 2 mg PRN Q15MIN PRN PO DIARRHEA (1st Choice); Start 06/12/18 at 08:45 Diphenoxylate HCl/ Atropine (Lomotil) 1 tab PRN QID PRN PO DIARRHEA (2nd Choice) Last administered on 06/12/18 10:16; Start 06/12/18 at 08:45 Dronabinol (Marinol) 5 mg BIDACLD PO Last administered on 06/13/18 17:12; Start 06/12/18 at 11:30; Stop 06/14/18 at 12:20; Status DC Albumin Human 500 ml @ 125 mls/hr 1X ONCE IV Last administered on 06/12/18at 15:58; Start 06/12/18 at 09:30; Stop 06/12/18 at 13:29; Status DC Pantoprazole Sodium (Protonix) 40 mg DAILYAC PO Last administered on 06/13/18 07:30; Start 06/12/18 at 11:30; Stop 06/13/18 at 11:24; Status DC Zolpidem Tartrate (Ambien) 5 mg PRN QHS PRN PO INSOMNIA; Start 06/12/18 at 11:30 Mirtazapine (Remeron) 7.5 mg QHS PO Last administered on 06/17/18 21:09; Start 06/12/18 at 21:00 Mesalamine (Delzicol) 800 mg BID PO Last administered on 06/17/18 21:08; Start 06/12/18 at 15:00 Albuterol Sulfate (Ventolin Neb Soln) 2.5 mg RTQID NEB Last administered on 06/18/18 08:07; Start 06/12/18 at 16:00 Budesonide (Pulmicort) 0.5 mg RTBID NEB Last administered on 06/18/18 08:07; Start 06/12/18 at 20:00 Ondansetron HCl (Zofran) 4 mg STK-MED ONCE .ROUTE ; Start 06/14/18 at 11:10; Stop 06/14/18 at 11:11; Status DC Propofol 20 ml @ As Directed STK-MED ONCE IV ; Start 06/14/18 at 11:10; Stop 06/14/18 at 11:11; Status DC Lidocaine HCl (Lidocaine Pf 2% Vial) 5 ml STK-MED ONCE .ROUTE ; Start 06/14/18 at 11:10; Stop 06/14/18 at 11:11; Status DC Sevoflurane (Ultane) 60 ml STK-MED ONCE IH ; Start 06/14/18 at 11:10; Stop 06/14/18 at 11:11; Status DC Fentanyl Citrate (Fentanyl 2ml Vial) 100 mcg STK-MED ONCE .ROUTE ; Start 06/14/18 at 11:10; Stop 06/14/18 at 11:11; Status DC Succinylcholine Chloride (Anectine) 200 mg STK-MED ONCE .ROUTE ; Start 06/14/18 at 11:10; Stop 06/14/18 at 11:11; Status DC Dexamethasone Sodium Phosphate (Decadron) 4 mg STK-MED ONCE .ROUTE ; Start 06/14/18 at 11:10; Stop 06/14/18 at 11:11; Status DC Glycopyrrolate (Robinul) 1 mg STK-MED ONCE .ROUTE ; Start 06/14/18 at 11:11; Stop 06/14/18 at 11:12; Status DC Neostigmine Methylsulfate (Neostigmine Methylsulfate) 5 mg STK-MED ONCE .ROUTE ; Start 06/14/18 at 11:11; Stop 06/14/18 at 11:12; Status DC Rocuronium Marion (Zemuron) 50 mg STK-MED ONCE .ROUTE ; Start 06/14/18 at 11:11; Stop 06/14/18 at 11:12; Status DC Dronabinol (Marinol) 2.5 mg BIDACLD PO ; Start 06/14/18 at 16:30; Stop 06/14/18 at 16:35; Status DC Dronabinol (Marinol) 2.5 mg BIDACLD PO Last administered on 06/17/18at 16:56; Start 06/16/18 at 11:30 Amino Acids/ Glycerin/ Electrolytes 1,000 ml @ 80 mls/hr [id number] IV Last administered on 06/17/18at 23:05; Start 06/16/18 at 11:00 Cefazolin Sodium 3 gm/Dextrose 100 ml @ 200 mls/hr 1X PREOP PRN IV protocol; Start 06/17/18 at 06:00; Stop 06/17/18 at 15:00; Status Cancel Insulin Glargine (Lantus) 14 units QHS SQ Last administered on 06/17/18at 21:16; Start 06/17/18 at 21:00 Insulin Human Lispro (HumaLOG) 5 units TIDWMEALS SQ Last administered on 06/17/18at 17:02; Start 06/17/18 at 12:00 Insulin Human Lispro (HumaLOG) 10 units 1X ONCE SQ ; Start 06/17/18 at 10:00; Stop 06/17/18 at 10:01; Status DC Cefazolin Sodium 50 ml @ 100 mls/hr 1X ONCE IV Last administered on 06/17/18at 11:59; Start 06/17/18 at 12:15; Stop 06/17/18 at 12:49; Status DC Bupivacaine HCl (Sensorcaine Mpf 0.5%) 30 ml STK-MED ONCE INJ Last administered on 06/17/18at 12:11; Start 06/17/18 at 12:11; Stop 06/17/18 at 12:49; Status DC Bupivacaine HCl/ Epinephrine Bitart (Sensorcain-Mpf Epi 0.5%-[id number]) 30 ml STK-MED ONCE INJ Last administered on 06/17/18at 12:44; Start 06/17/18 at 12:44; Stop 06/17/18 at 12:49; Status DC Insulin Human Lispro (HumaLOG VIAL) 6 unit 1X ONCE SQ Last administered on 06/17/18at 13:42; Start 06/17/18 at 13:45; Stop 06/17/18 at 13:46; Status DC Ringer's Solution 1,040 ml @ 1,040 mls/hr 1X ONCE IV ; Start 06/17/18 at 14:45; Stop 06/17/18 at 15:44; Status DC Simethicone (Gas-X) 80 mg PRN AFTMEALHC PRN PO GAS / BLOATING Last administered on 06/17/18at 15:16; Start 06/17/18 at 15:00 Active Scripts Active Reported Mag-Oxide (Magnesium Oxide) 400 Mg Tablet Tradjenta (Linagliptin) 5 Mg Tablet Tradjenta (Linagliptin) 5 Mg Tablet Lantus Solostar (Insulin Glargine,Hum.rec.anlog) 100 Unit/1 Ml Insuln.pen Diltiazem 24Hr Cd (Diltiazem HCl) 240 Mg Cap.er.24h Losartan Potassium 50 Mg Tablet Metformin Hcl Er (Metformin Hcl) 500 Mg Tab.er.24h Klor-Con 10 (Potassium Chloride) 10 Meq Tablet.er Atorvastatin Calcium 20 Mg Tablet Furosemide 40 Mg Tablet Mirtazapine 30 Mg Tablet Afinitor (Everolimus) 2.5 Mg Tablet Afinitor (Everolimus) 10 Mg Tablet 10 Mg PO DAILY Aromasin (Exemestane) 25 Mg Tablet 25 Mg PO DAILY Xgeva (Denosumab) 120 Mg/1.7 Ml Vial 120 Mg SQ MONTHLY Aleve (Naproxen Sodium) 220 Mg Tablet 440 Mg PO BID Vitamin D3 (Cholecalciferol (Vitamin D3)) 2,000 Unit Tablet 2,000 Unit PO DAILY Calcium (Calcium Carbonate) 500 Mg Tablet 500 Mg PO DAILY Cardizem Cd (Diltiazem Hcl) 240 Mg Cap.er.24h 1 Cap PO BID Hydrocodone-Apap 5-325 (Hydrocodone Bit/Acetaminophen) 1 Each Tablet 1 Tab PO PRN Q6HRS PRN Metformin Hcl 1,000 Mg Tablet 1,000 Mg PO BIDWMEALS Proair Hfa Inhaler (Albuterol Sulfate) 8.5 Gm Hfa.aer.ad 1 Puff INH PRN Q6HRS PRN Losartan Potassium 50 Mg Tablet 50 Mg PO DAILY Montelukast Sodium Tablet (Montelukast Sodium) 10 Mg Tablet 10 Mg PO HS Labetalol Hcl 200 Mg Tablet 200 Mg PO BID Vitals/I & O Vital Sign - Last 24 Hours 06/17/18 06/17/18 06/17/18 06/17/18 11:00 11:49 12:52 12:52 Temp 97.7 99.2 98.2 97.7 99.2 98.2 Pulse 91 94 88 Resp 14 20 20 B/P (MAP) 125/59 (81) 132/60 99/44 Pulse Ox 95 94 97 O2 Delivery Room Air Room Air Room Air Nasal Cannula O2 Flow Rate 3.0 3.0 06/17/18 06/17/18 06/17/18 06/17/18 13:09 13:21 13:24 13:39 Temp 98.2 98.2 98.2 98.2 Pulse 87 84 84 Resp 14 25 17 17 B/P (MAP) 102/44 112/47 106/45 Pulse Ox 97 97 97 96 O2 Delivery Nasal Cannula Nasal Cannula Nasal Cannula Nasal Cannula O2 Flow Rate 3.0 3.0 3.0 3.0 06/17/18 06/17/18 06/17/18 06/17/18 13:50 13:54 14:43 14:44 Temp 98.2 98.2 Pulse 83 83 83 Resp 15 B/P (MAP) 110/45 110/45 110/45 Pulse Ox 96 O2 Delivery Nasal Cannula Nasal Cannula O2 Flow Rate 3.0 3.0 06/17/18 06/17/18 06/17/18 06/17/18 15:00 15:01 16:36 19:00 Temp 98.3 98.7 98.3 98.7 Pulse 87 94 Resp 16 18 B/P (MAP) 116/51 (72) 116/54 (74) Pulse Ox 94 96 O2 Delivery Room Air Room Air Room Air Nasal Cannula O2 Flow Rate 2.0 06/17/18 06/17/18 06/17/18 06/17/18 19:40 19:42 20:00 21:00 Pulse 93 B/P (MAP) 119/57 Pulse Ox 96 96 O2 Delivery Nasal Cannula Nasal Cannula Nasal Cannula O2 Flow Rate 2.0 2.0 2.0 06/17/18 06/17/18 06/18/18 06/18/18 21:09 22:51 02:58 07:00 Temp 98.2 98.7 98.3 98.2 98.7 98.3 Pulse 94 93 77 90 Resp 18 18 20 B/P (MAP) 116/54 119/57 (77) 119/55 (76) 118/56 (76) Pulse Ox 97 96 95 O2 Delivery Nasal Cannula Nasal Cannula Nasal Cannula O2 Flow Rate 2.0 2.0 2.0 06/18/18 08:07 Pulse Ox 97 O2 Delivery Nasal Cannula O2 Flow Rate 1.0 Intake and Output 06/17/18 06/17/18 06/18/18 15:00 23:00 07:00 Intake Total 500 ml Output Total 10 ml 0 ml Balance 490 ml 0 ml Nutrition Consultation Dietary Evaluation: Recommendations by RD: Increase Calorie Intake, Protein supplementation, PPN/TPN Comments: REC resume ADA diet with glucerna supplements. PPN < 10 days Expected Outcomes/Goals: to meet > 75% est nutr needs- met, goal ongoing Malnutrition Findings: Body Fat Depletion (Non Severe: Mild Depletion Weight Status: Underweight FRANKIE MUNROE MD Jun 18, 2018 08:53
[2018-06-18] MEDS: NAPROXEN 500 MG TABLET PO SCH ×2 (09:00→22:09)
[2018-06-18] MEDS: MESALAMINE 400 MG CAP.DRTAB. PO SCH ×2 (09:06→22:10)
[2018-06-18] MEDS: LABETALOL HCL 200 MG TABLET PO SCH ×2 (09:07→22:09)
[2018-06-18] MEDS: CHOLECALCIFEROL (VITAMIN D3) 1,000 UNIT TABLET PO SCH (09:08)
[2018-06-18] MEDS: ATORVASTATIN CALCIUM 20 MG TABLET PO SCH (09:08)
[2018-06-18] MEDS: CALCIUM CARBONATE 500 MG TABLET PO SCH (09:09)
[2018-06-18] MEDS: LOSARTAN POTASSIUM 50 MG TABLET. PO SCH (09:09)
[2018-06-18] MEDS: FUROSEMIDE 40 MG TABLET. PO SCH (09:10)
[2018-06-18] MEDS: INSULIN LISPRO 300 UNITS/3 ML INSULN.PEN. SQ SCH ×2 (09:17→09:18)
--- NOTE | 2018-06-18 09:26 | PDOC ---
PULMONARY PROGRESS NOTES Subjective PT LESS SOA Vitals Vital Signs Date Time Temp Pulse Resp B/P (MAP) Pulse Ox O2 Delivery O2 Flow Rate FiO2 06/18/18 09:09 90 118/56 06/18/18 08:07 97 Nasal Cannula 1.0 06/18/18 07:00 98.3 20 98.3 ROS: No Nausea, No Chest Pain, No Abdominal Pain, No Increase Cough Lungs: Crackles, Other (No rales or rhonchi) Cardiovascular: S1, S2 Abdomen: Soft Neuro Exam: Alert Extremities: No Edema Skin: Warm Labs Laboratory Tests Test 06/16/18 11:24 06/16/18 16:54 06/16/18 20:40 06/17/18 07:54 Glucose (Fingerstick) 304 mg/dL (70-99) 282 mg/dL (70-99) 280 mg/dL (70-99) 304 mg/dL (70-99) Test 06/17/18 08:45 06/17/18 10:12 06/17/18 11:59 06/17/18 13:04 White Blood Count 3.4 x10^3/uL (4.0-11.0) Red Blood Count 3.57 x10^6/uL (3.50-5.40) Hemoglobin 9.1 g/dL (12.0-15.5) Hematocrit 28.3 % (36.0-47.0) Mean Corpuscular Volume 79 fL (79-100) Mean Corpuscular Hemoglobin 26 pg (25-35) Mean Corpuscular Hemoglobin Concent 32 g/dL (31-37) Red Cell Distribution Width 20.0 % (11.5-14.5) Platelet Count 227 x10^3/uL (140-400) Neutrophils (%) (Auto) 75 % (31-73) Lymphocytes (%) (Auto) 9 % (24-48) Monocytes (%) (Auto) 13 % (0-9) Eosinophils (%) (Auto) 2 % (0-3) Basophils (%) (Auto) 0 % (0-3) Neutrophils # (Auto) 2.5 x10^3uL (1.8-7.7) Lymphocytes # (Auto) 0.3 x10^3/uL (1.0-4.8) Monocytes # (Auto) 0.4 x10^3/uL (0.0-1.1) Eosinophils # (Auto) 0.1 x10^3/uL (0.0-0.7) Basophils # (Auto) 0.0 x10^3/uL (0.0-0.2) Sodium Level 142 mmol/L (136-145) Potassium Level 4.1 mmol/L (3.5-5.1) Chloride Level 107 mmol/L (98-107) Carbon Dioxide Level 24 mmol/L (21-32) Anion Gap 11 (6-14) Blood Urea Nitrogen 36 mg/dL (7-20) Creatinine 1.1 mg/dL (0.6-1.0) Estimated GFR (Cockcroft-Gault) 58.4 BUN/Creatinine Ratio 33 (6-20) Glucose Level 305 mg/dL (70-99) Calcium Level 9.6 mg/dL (8.5-10.1) Total Bilirubin 0.3 mg/dL (0.2-1.0) Aspartate Amino Transf (AST/SGOT) 55 U/L (15-37) Alanine Aminotransferase (ALT/SGPT) 17 U/L (14-59) Alkaline Phosphatase 129 U/L (46-116) Total Protein 6.3 g/dL (6.4-8.2) Albumin 2.4 g/dL (3.4-5.0) Albumin/Globulin Ratio 0.6 (1.0-1.7) Glucose (Fingerstick) 241 mg/dL (70-99) 256 mg/dL (70-99) 261 mg/dL (70-99) Test 06/17/18 14:39 06/17/18 16:57 06/17/18 20:44 06/18/18 03:10 Glucose (Fingerstick) 240 mg/dL (70-99) 245 mg/dL (70-99) 276 mg/dL (70-99) White Blood Count 4.0 x10^3/uL (4.0-11.0) Red Blood Count 3.20 x10^6/uL (3.50-5.40) Hemoglobin 8.2 g/dL (12.0-15.5) Hematocrit 25.4 % (36.0-47.0) Mean Corpuscular Volume 79 fL (79-100) Mean Corpuscular Hemoglobin 26 pg (25-35) Mean Corpuscular Hemoglobin Concent 32 g/dL (31-37) Red Cell Distribution Width 19.2 % (11.5-14.5) Platelet Count 209 x10^3/uL (140-400) Neutrophils (%) (Auto) 88 % (31-73) Lymphocytes (%) (Auto) 5 % (24-48) Monocytes (%) (Auto) 7 % (0-9) Eosinophils (%) (Auto) 0 % (0-3) Basophils (%) (Auto) 0 % (0-3) Neutrophils # (Auto) 3.5 x10^3uL (1.8-7.7) Lymphocytes # (Auto) 0.2 x10^3/uL (1.0-4.8) Monocytes # (Auto) 0.3 x10^3/uL (0.0-1.1) Eosinophils # (Auto) 0.0 x10^3/uL (0.0-0.7) Basophils # (Auto) 0.0 x10^3/uL (0.0-0.2) Sodium Level 141 mmol/L (136-145) Potassium Level 5.2 mmol/L (3.5-5.1) Chloride Level 107 mmol/L (98-107) Carbon Dioxide Level 23 mmol/L (21-32) Anion Gap 11 (6-14) Blood Urea Nitrogen 39 mg/dL (7-20) Creatinine 1.0 mg/dL (0.6-1.0) Estimated GFR (Cockcroft-Gault) 65.2 Glucose Level 345 mg/dL (70-99) Calcium Level 9.3 mg/dL (8.5-10.1) Test 06/18/18 07:17 Glucose (Fingerstick) 337 mg/dL (70-99) Laboratory Tests Test 06/17/18 10:12 06/17/18 11:59 06/17/18 13:04 06/17/18 14:39 Glucose (Fingerstick) 241 mg/dL (70-99) 256 mg/dL (70-99) 261 mg/dL (70-99) 240 mg/dL (70-99) Test 06/17/18 16:57 06/17/18 20:44 06/18/18 03:10 06/18/18 07:17 Glucose (Fingerstick) 245 mg/dL (70-99) 276 mg/dL (70-99) 337 mg/dL (70-99) White Blood Count 4.0 x10^3/uL (4.0-11.0) Red Blood Count 3.20 x10^6/uL (3.50-5.40) Hemoglobin 8.2 g/dL (12.0-15.5) Hematocrit 25.4 % (36.0-47.0) Mean Corpuscular Volume 79 fL (79-100) Mean Corpuscular Hemoglobin 26 pg (25-35) Mean Corpuscular Hemoglobin Concent 32 g/dL (31-37) Red Cell Distribution Width 19.2 % (11.5-14.5) Platelet Count 209 x10^3/uL (140-400) Neutrophils (%) (Auto) 88 % (31-73) Lymphocytes (%) (Auto) 5 % (24-48) Monocytes (%) (Auto) 7 % (0-9) Eosinophils (%) (Auto) 0 % (0-3) Basophils (%) (Auto) 0 % (0-3) Neutrophils # (Auto) 3.5 x10^3uL (1.8-7.7) Lymphocytes # (Auto) 0.2 x10^3/uL (1.0-4.8) Monocytes # (Auto) 0.3 x10^3/uL (0.0-1.1) Eosinophils # (Auto) 0.0 x10^3/uL (0.0-0.7) Basophils # (Auto) 0.0 x10^3/uL (0.0-0.2) Sodium Level 141 mmol/L (136-145) Potassium Level 5.2 mmol/L (3.5-5.1) Chloride Level 107 mmol/L (98-107) Carbon Dioxide Level 23 mmol/L (21-32) Anion Gap 11 (6-14) Blood Urea Nitrogen 39 mg/dL (7-20) Creatinine 1.0 mg/dL (0.6-1.0) Estimated GFR (Cockcroft-Gault) 65.2 Glucose Level 345 mg/dL (70-99) Calcium Level 9.3 mg/dL (8.5-10.1) Medications Active Scripts Medications Dose Route/Sig Max Daily Dose Days Date Category Mag-Oxide (Magnesium Oxide) 400 Mg Tablet 06/11/18 Reported Tradjenta (Linagliptin) 5 Mg Tablet 06/11/18 Reported Tradjenta (Linagliptin) 5 Mg Tablet 06/11/18 Reported Lantus Solostar (Insulin Glargine,Hum.rec.anlog) 100 Unit/1 Ml Insuln.pen 06/11/18 Reported Diltiazem 24Hr Cd (Diltiazem HCl) 240 Mg Cap.er.24h 06/11/18 Reported Losartan Potassium 50 Mg Tablet 06/11/18 Reported Metformin Hcl Er (Metformin Hcl) 500 Mg Tab.er.24h 06/11/18 Reported Klor-Con 10 (Potassium Chloride) 10 Meq Tablet.er 06/11/18 Reported Atorvastatin Calcium 20 Mg Tablet 06/11/18 Reported Furosemide 40 Mg Tablet 06/11/18 Reported Mirtazapine 30 Mg Tablet 06/11/18 Reported Afinitor (Everolimus) 2.5 Mg Tablet 06/11/18 Reported Afinitor (Everolimus) 10 Mg Tablet 10 Mg PO DAILY 03/07/18 Reported Aromasin (Exemestane) 25 Mg Tablet 25 Mg PO DAILY 03/07/18 Reported Xgeva (Denosumab) 120 Mg/1.7 Ml Vial 120 Mg SQ MONTHLY 03/27/17 Reported Aleve (Naproxen Sodium) 220 Mg Tablet 440 Mg PO BID 03/02/17 Reported Vitamin D3 (Cholecalciferol (Vitamin D3)) 2,000 Unit Tablet 2,000 Unit PO DAILY 03/01/17 Reported Calcium (Calcium Carbonate) 500 Mg Tablet 500 Mg PO DAILY 03/01/17 Reported Cardizem Cd (Diltiazem Hcl) 240 Mg Cap.er.24h 1 Cap PO BID 03/01/17 Reported Hydrocodone-Apap 5-325 (Hydrocodone Bit/Acetaminophen) 1 Each Tablet 1 Tab PO PRN Q6HRS PRN 02/06/17 Reported Metformin Hcl 1,000 Mg Tablet 1,000 Mg PO BIDWMEALS 02/06/17 Reported Proair Hfa Inhaler (Albuterol Sulfate) 8.5 Gm Hfa.aer.ad 1 Puff INH PRN Q6HRS PRN 02/06/17 Reported Losartan Potassium 50 Mg Tablet 50 Mg PO DAILY 02/06/17 Reported Montelukast Sodium Tablet (Montelukast Sodium) 10 Mg Tablet 10 Mg PO HS 02/06/17 Reported Labetalol Hcl 200 Mg Tablet 200 Mg PO BID 02/06/17 Reported Impression . ASSESSMENT: 1. Metastatic breast cancer. 2. Obstructive lung disease with asthma component. 3. History of remote tobacco dependence, in remission. 4. Bilateral effusion MALIGNANT 5. Ascites Plan . RT TO PERFORM 6 MW D/W CM OK TO D/C HOME FROM MY PERCEPTIVE THORACENTESIS WHEN SHE BECOMES SYMPTOMATIC VS PLEREX CATH WILL SEE EMILE ROSSI MD Jun 18, 2018 09:26
[2018-06-18 11:00] VITALS: BP 146/53
[2018-06-18] MEDS ORDERED: INSULIN LISPRO 300 UNITS/3 ML INSULN.PEN. SQ SCH (12:00)
--- NOTE | 2018-06-18 12:15 | PDOC ---
PROGRESS NOTES Chief Complaint Chief Complaint SOB, abdominal distention acute hypoxic respiratory failure, metastatic breast cancer pleural effusion, malignant Dm1, insulin, + SSI home meds chroinc htn, diastolic CHF, echo severe malnutrition History of Present Illness History of Present Illness appetite has improved, now marked hyperglycemia, increase the insulin Large bilateral pleural effusions and associated bibasilar compressive atelectasis or consolidative lung infiltrates. anemia bone scan indicated progressive disease blood sugar high Vitals Vitals Vital Signs Date Time Temp Pulse Resp B/P (MAP) Pulse Ox O2 Delivery O2 Flow Rate FiO2 06/18/18 12:01 92 Room Air 06/18/18 09:09 90 118/56 06/18/18 08:07 1.0 06/18/18 07:00 98.3 20 98.3 Physical Exam General: Alert, Oriented X3, No acute distress Heart: Normal S1, Normal S2 Lungs: Crackles, Other (No rales or rhonchi) Abdomen: Normal bowel sounds, Soft, No tenderness, No masses, Other (distended) Extremities: No cyanosis, No edema, Normal pulses, No tenderness/swelling Skin: No rashes, No breakdown, No significant lesion Labs LABS Laboratory Tests Test 06/17/18 13:04 06/17/18 14:39 06/17/18 16:57 06/17/18 20:44 Glucose (Fingerstick) 261 mg/dL (70-99) 240 mg/dL (70-99) 245 mg/dL (70-99) 276 mg/dL (70-99) Test 06/18/18 03:10 06/18/18 07:17 06/18/18 12:09 White Blood Count 4.0 x10^3/uL (4.0-11.0) Red Blood Count 3.20 x10^6/uL (3.50-5.40) Hemoglobin 8.2 g/dL (12.0-15.5) Hematocrit 25.4 % (36.0-47.0) Mean Corpuscular Volume 79 fL (79-100) Mean Corpuscular Hemoglobin 26 pg (25-35) Mean Corpuscular Hemoglobin Concent 32 g/dL (31-37) Red Cell Distribution Width 19.2 % (11.5-14.5) Platelet Count 209 x10^3/uL (140-400) Neutrophils (%) (Auto) 88 % (31-73) Lymphocytes (%) (Auto) 5 % (24-48) Monocytes (%) (Auto) 7 % (0-9) Eosinophils (%) (Auto) 0 % (0-3) Basophils (%) (Auto) 0 % (0-3) Neutrophils # (Auto) 3.5 x10^3uL (1.8-7.7) Lymphocytes # (Auto) 0.2 x10^3/uL (1.0-4.8) Monocytes # (Auto) 0.3 x10^3/uL (0.0-1.1) Eosinophils # (Auto) 0.0 x10^3/uL (0.0-0.7) Basophils # (Auto) 0.0 x10^3/uL (0.0-0.2) Sodium Level 141 mmol/L (136-145) Potassium Level 5.2 mmol/L (3.5-5.1) Chloride Level 107 mmol/L (98-107) Carbon Dioxide Level 23 mmol/L (21-32) Anion Gap 11 (6-14) Blood Urea Nitrogen 39 mg/dL (7-20) Creatinine 1.0 mg/dL (0.6-1.0) Estimated GFR (Cockcroft-Gault) 65.2 Glucose Level 345 mg/dL (70-99) Calcium Level 9.3 mg/dL (8.5-10.1) Glucose (Fingerstick) 337 mg/dL (70-99) 396 mg/dL (70-99) Assessment and Plan Assessmemt and Plan Problems Medical Problems: (1) Ascites Status: Acute (2) Cholelithiasis Status: Acute (3) Pleural effusion Status: Acute (4) Shortness of breath Status: Acute Comment Review of Relevant I have reviewed the following items patrica (where applicable) has been applied. Labs Laboratory Tests Test 06/16/18 16:54 06/16/18 20:40 06/17/18 07:54 06/17/18 08:45 Glucose (Fingerstick) 282 mg/dL (70-99) 280 mg/dL (70-99) 304 mg/dL (70-99) White Blood Count 3.4 x10^3/uL (4.0-11.0) Red Blood Count 3.57 x10^6/uL (3.50-5.40) Hemoglobin 9.1 g/dL (12.0-15.5) Hematocrit 28.3 % (36.0-47.0) Mean Corpuscular Volume 79 fL (79-100) Mean Corpuscular Hemoglobin 26 pg (25-35) Mean Corpuscular Hemoglobin Concent 32 g/dL (31-37) Red Cell Distribution Width 20.0 % (11.5-14.5) Platelet Count 227 x10^3/uL (140-400) Neutrophils (%) (Auto) 75 % (31-73) Lymphocytes (%) (Auto) 9 % (24-48) Monocytes (%) (Auto) 13 % (0-9) Eosinophils (%) (Auto) 2 % (0-3) Basophils (%) (Auto) 0 % (0-3) Neutrophils # (Auto) 2.5 x10^3uL (1.8-7.7) Lymphocytes # (Auto) 0.3 x10^3/uL (1.0-4.8) Monocytes # (Auto) 0.4 x10^3/uL (0.0-1.1) Eosinophils # (Auto) 0.1 x10^3/uL (0.0-0.7) Basophils # (Auto) 0.0 x10^3/uL (0.0-0.2) Sodium Level 142 mmol/L (136-145) Potassium Level 4.1 mmol/L (3.5-5.1) Chloride Level 107 mmol/L (98-107) Carbon Dioxide Level 24 mmol/L (21-32) Anion Gap 11 (6-14) Blood Urea Nitrogen 36 mg/dL (7-20) Creatinine 1.1 mg/dL (0.6-1.0) Estimated GFR (Cockcroft-Gault) 58.4 BUN/Creatinine Ratio 33 (6-20) Glucose Level 305 mg/dL (70-99) Calcium Level 9.6 mg/dL (8.5-10.1) Total Bilirubin 0.3 mg/dL (0.2-1.0) Aspartate Amino Transf (AST/SGOT) 55 U/L (15-37) Alanine Aminotransferase (ALT/SGPT) 17 U/L (14-59) Alkaline Phosphatase 129 U/L (46-116) Total Protein 6.3 g/dL (6.4-8.2) Albumin 2.4 g/dL (3.4-5.0) Albumin/Globulin Ratio 0.6 (1.0-1.7) Test 06/17/18 10:12 06/17/18 11:59 06/17/18 13:04 06/17/18 14:39 Glucose (Fingerstick) 241 mg/dL (70-99) 256 mg/dL (70-99) 261 mg/dL (70-99) 240 mg/dL (70-99) Test 06/17/18 16:57 06/17/18 20:44 06/18/18 03:10 06/18/18 07:17 Glucose (Fingerstick) 245 mg/dL (70-99) 276 mg/dL (70-99) 337 mg/dL (70-99) White Blood Count 4.0 x10^3/uL (4.0-11.0) Red Blood Count 3.20 x10^6/uL (3.50-5.40) Hemoglobin 8.2 g/dL (12.0-15.5) Hematocrit 25.4 % (36.0-47.0) Mean Corpuscular Volume 79 fL (79-100) Mean Corpuscular Hemoglobin 26 pg (25-35) Mean Corpuscular Hemoglobin Concent 32 g/dL (31-37) Red Cell Distribution Width 19.2 % (11.5-14.5) Platelet Count 209 x10^3/uL (140-400) Neutrophils (%) (Auto) 88 % (31-73) Lymphocytes (%) (Auto) 5 % (24-48) Monocytes (%) (Auto) 7 % (0-9) Eosinophils (%) (Auto) 0 % (0-3) Basophils (%) (Auto) 0 % (0-3) Neutrophils # (Auto) 3.5 x10^3uL (1.8-7.7) Lymphocytes # (Auto) 0.2 x10^3/uL (1.0-4.8) Monocytes # (Auto) 0.3 x10^3/uL (0.0-1.1) Eosinophils # (Auto) 0.0 x10^3/uL (0.0-0.7) Basophils # (Auto) 0.0 x10^3/uL (0.0-0.2) Sodium Level 141 mmol/L (136-145) Potassium Level 5.2 mmol/L (3.5-5.1) Chloride Level 107 mmol/L (98-107) Carbon Dioxide Level 23 mmol/L (21-32) Anion Gap 11 (6-14) Blood Urea Nitrogen 39 mg/dL (7-20) Creatinine 1.0 mg/dL (0.6-1.0) Estimated GFR (Cockcroft-Gault) 65.2 Glucose Level 345 mg/dL (70-99) Calcium Level 9.3 mg/dL (8.5-10.1) Test 06/18/18 12:09 Glucose (Fingerstick) 396 mg/dL (70-99) Laboratory Tests Test 06/17/18 13:04 06/17/18 14:39 06/17/18 16:57 06/17/18 20:44 Glucose (Fingerstick) 261 mg/dL (70-99) 240 mg/dL (70-99) 245 mg/dL (70-99) 276 mg/dL (70-99) Test 06/18/18 03:10 06/18/18 07:17 06/18/18 12:09 White Blood Count 4.0 x10^3/uL (4.0-11.0) Red Blood Count 3.20 x10^6/uL (3.50-5.40) Hemoglobin 8.2 g/dL (12.0-15.5) Hematocrit 25.4 % (36.0-47.0) Mean Corpuscular Volume 79 fL (79-100) Mean Corpuscular Hemoglobin 26 pg (25-35) Mean Corpuscular Hemoglobin Concent 32 g/dL (31-37) Red Cell Distribution Width 19.2 % (11.5-14.5) Platelet Count 209 x10^3/uL (140-400) Neutrophils (%) (Auto) 88 % (31-73) Lymphocytes (%) (Auto) 5 % (24-48) Monocytes (%) (Auto) 7 % (0-9) Eosinophils (%) (Auto) 0 % (0-3) Basophils (%) (Auto) 0 % (0-3) Neutrophils # (Auto) 3.5 x10^3uL (1.8-7.7) Lymphocytes # (Auto) 0.2 x10^3/uL (1.0-4.8) Monocytes # (Auto) 0.3 x10^3/uL (0.0-1.1) Eosinophils # (Auto) 0.0 x10^3/uL (0.0-0.7) Basophils # (Auto) 0.0 x10^3/uL (0.0-0.2) Sodium Level 141 mmol/L (136-145) Potassium Level 5.2 mmol/L (3.5-5.1) Chloride Level 107 mmol/L (98-107) Carbon Dioxide Level 23 mmol/L (21-32) Anion Gap 11 (6-14) Blood Urea Nitrogen 39 mg/dL (7-20) Creatinine 1.0 mg/dL (0.6-1.0) Estimated GFR (Cockcroft-Gault) 65.2 Glucose Level 345 mg/dL (70-99) Calcium Level 9.3 mg/dL (8.5-10.1) Glucose (Fingerstick) 337 mg/dL (70-99) 396 mg/dL (70-99) Microbiology 06/11/18 Blood Culture - Final, Complete NO GROWTH AFTER 5 DAYS 06/12/18 Anaerobic/Aerobic Culture - Final, Complete 06/12/18 Anaerobic Culture Result 1 (KEISHA) - Final, Complete 06/12/18 Aerobic Culture - Final, Complete 06/12/18 Aerobic Culture Result 1 (KEISHA) - Final, Complete 06/12/18 Gram Stain - Final, Complete 06/12/18 Gram Stain Result 1 (KEISHA) - Final, Complete 06/12/18 Gram Stain Result 2 (KEISHA) - Final, Complete 06/11/18 Urine Culture - Final, Complete 06/11/18 Urine Culture Result 1 (KEISHA) - Final, Complete 06/11/18 Antimicrobic Susceptibility - Final, Complete Medications Current Medications Albuterol/ Ipratropium (Duoneb) 3 ml 1X ONCE NEB Last administered on 06/11/18at 17:19; Start 06/11/18 at 17:15; Stop 06/11/18 at 17:16; Status DC Ondansetron HCl (Zofran) 4 mg PRN Q8HRS PRN IV NAUSEA/VOMITING; Start 06/11/18 at 19:15; Stop 06/12/18 at 19:14; Status DC Morphine Sulfate (Morphine Sulfate) 4 mg PRN Q2HR PRN IV PAIN; Start 06/11/18 at 19:15; Stop 06/12/18 at 19:14; Status DC Acetaminophen (Tylenol) 650 mg PRN Q4HRS PRN PO FEVER; Start 06/11/18 at 19:15; Stop 06/12/18 at 19:14; Status DC Dextrose (Dextrose 50%-Water Syringe) 12.5 gm PRN Q15MIN PRN IV SEE COMMENTS; Start 06/11/18 at 19:15; Status Cancel Insulin Human Regular (HumuLIN R VIAL) 5 unit 1X ONCE IV Last administered on 06/11/18at 20:11; Start 06/11/18 at 19:30; Stop 06/11/18 at 19:31; Status DC Albuterol Sulfate (Ventolin Neb Soln) 2.5 mg PRN Q6HRS PRN INH SHORTNESS OF BREATH Last administered on 06/12/18 08:37; Start 06/11/18 at 20:45 Atorvastatin Calcium (Lipitor) 20 mg DAILY PO Last administered on 06/18/18 09:08; Start 06/12/18 at 09:00 Calcium Carbonate/ Glycine (Oscal) 500 mg DAILY PO Last administered on 06/18/18 09:09; Start 06/12/18 at 09:00 Furosemide (Lasix) 40 mg DAILY PO Last administered on 06/18/18 09:10; Start 06/12/18 at 09:00 Acetaminophen/ Hydrocodone Bitart (Lortab 5/325) 1 tab PRN Q6HRS PRN PO PAIN Last administered on 06/17/18 13:21; Start 06/11/18 at 20:45 Losartan Potassium (Cozaar) 50 mg DAILY PO Last administered on 06/18/18 09:09; Start 06/12/18 at 09:00 Vitamin D (Vitamin D3) 2,000 unit DAILY PO Last administered on 06/18/18 09:08; Start 06/12/18 at 09:00 Diltiazem HCl (Cardizem 24hr Cd) 240 mg BID PO Last administered on 06/18/18 09:09; Start 06/11/18 at 21:00 Non-Formulary Medication (Everolimus (Afinitor)) 10 mg DAILY PO ; Start 06/12/18 at 09:00; Stop 06/12/18 at 09:00; Status DC Non-Formulary Medication (Exemestane (Aromasin)) 25 mg DAILY PO ; Start 06/12/18 at 09:00; Stop 06/12/18 at 09:00; Status DC Labetalol HCl (Trandate) 200 mg BID PO Last administered on 06/18/18at 09:07; Start 06/11/18 at 21:00 Non-Formulary Medication (Metformin Hcl ) 1,000 mg BIDWMEALS PO ; Start 06/12/18 at 08:00; Status UNV Montelukast Sodium (Singulair) 10 mg QHS PO Last administered on 06/17/18at 21:09; Start 06/11/18 at 21:00 Naproxen (Naprosyn) 500 mg BID PO Last administered on 06/16/18at 11:21; Start 06/11/18 at 21:00 Insulin Human Lispro (HumaLOG) 0-7 UNITS TIDWMEALS SQ Last administered on 06/18/18 09:17; Start 06/12/18 at 08:00 Dextrose (Dextrose 50%-Water Syringe) 12.5 gm PRN Q15MIN PRN IV SEE COMMENTS; Start 06/11/18 at 20:45 Insulin Glargine (Lantus) 7 units QHS SQ Last administered on 06/16/18at 20:51; Start 06/11/18 at 21:45; Stop 06/17/18 at 09:53; Status DC Loperamide HCl (Imodium) 2 mg PRN Q15MIN PRN PO DIARRHEA (1st Choice); Start 06/12/18 at 08:45 Diphenoxylate HCl/ Atropine (Lomotil) 1 tab PRN QID PRN PO DIARRHEA (2nd Choice) Last administered on 06/12/18at 10:16; Start 06/12/18 at 08:45 Dronabinol (Marinol) 5 mg BIDACLD PO Last administered on 06/13/18at 17:12; Start 06/12/18 at 11:30; Stop 06/14/18 at 12:20; Status DC Albumin Human 500 ml @ 125 mls/hr 1X ONCE IV Last administered on 06/12/18at 15:58; Start 06/12/18 at 09:30; Stop 06/12/18 at 13:29; Status DC Pantoprazole Sodium (Protonix) 40 mg DAILYAC PO Last administered on 06/13/18at 07:30; Start 06/12/18 at 11:30; Stop 06/13/18 at 11:24; Status DC Zolpidem Tartrate (Ambien) 5 mg PRN QHS PRN PO INSOMNIA; Start 06/12/18 at 11:30 Mirtazapine (Remeron) 7.5 mg QHS PO Last administered on 06/17/18at 21:09; Start 06/12/18 at 21:00 Mesalamine (Delzicol) 800 mg BID PO Last administered on 06/18/18at 09:06; Start 06/12/18 at 15:00 Albuterol Sulfate (Ventolin Neb Soln) 2.5 mg RTQID NEB Last administered on 06/18/18at 11:50; Start 06/12/18 at 16:00 Budesonide (Pulmicort) 0.5 mg RTBID NEB Last administered on 06/18/18at 08:07; Start 06/12/18 at 20:00 Ondansetron HCl (Zofran) 4 mg STK-MED ONCE .ROUTE ; Start 06/14/18 at 11:10; Stop 06/14/18 at 11:11; Status DC Propofol 20 ml @ As Directed STK-MED ONCE IV ; Start 06/14/18 at 11:10; Stop 06/14/18 at 11:11; Status DC Lidocaine HCl (Lidocaine Pf 2% Vial) 5 ml STK-MED ONCE .ROUTE ; Start 06/14/18 at 11:10; Stop 06/14/18 at 11:11; Status DC Sevoflurane (Ultane) 60 ml STK-MED ONCE IH ; Start 06/14/18 at 11:10; Stop 06/14/18 at 11:11; Status DC Fentanyl Citrate (Fentanyl 2ml Vial) 100 mcg STK-MED ONCE .ROUTE ; Start 06/14/18 at 11:10; Stop 06/14/18 at 11:11; Status DC Succinylcholine Chloride (Anectine) 200 mg STK-MED ONCE .ROUTE ; Start 06/14/18 at 11:10; Stop 06/14/18 at 11:11; Status DC Dexamethasone Sodium Phosphate (Decadron) 4 mg STK-MED ONCE .ROUTE ; Start 06/14/18 at 11:10; Stop 06/14/18 at 11:11; Status DC Glycopyrrolate (Robinul) 1 mg STK-MED ONCE .ROUTE ; Start 06/14/18 at 11:11; Stop 06/14/18 at 11:12; Status DC Neostigmine Methylsulfate (Neostigmine Methylsulfate) 5 mg STK-MED ONCE .ROUTE ; Start 06/14/18 at 11:11; Stop 06/14/18 at 11:12; Status DC Rocuronium [place] (Zemuron) 50 mg STK-MED ONCE .ROUTE ; Start 06/14/18 at 11:11; Stop 06/14/18 at 11:12; Status DC Dronabinol (Marinol) 2.5 mg BIDACLD PO ; Start 06/14/18 at 16:30; Stop 06/14/18 at 16:35; Status DC Dronabinol (Marinol) 2.5 mg BIDACLD PO Last administered on 06/17/18at 16:56; Start 06/16/18 at 11:30 Amino Acids/ Glycerin/ Electrolytes 1,000 ml @ 80 mls/hr [id number] IV Last administered on 06/17/18at 23:05; Start 06/16/18 at 11:00; Stop 06/18/18 at 10:3 3; Status DC Cefazolin Sodium 3 gm/Dextrose 100 ml @ 200 mls/hr 1X PREOP PRN IV protocol; Start 06/17/18 at 06:00; Stop 06/17/18 at 15:00; Status Cancel Insulin Glargine (Lantus) 14 units QHS SQ Last administered on 06/17/18at 21:16; Start 06/17/18 at 21:00 Insulin Human Lispro (HumaLOG) 5 units TIDWMEALS SQ Last administered on 06/18/18at 09:18; Start 06/17/18 at 12:00; Stop 06/18/18 at 10:34; Status DC Insulin Human Lispro (HumaLOG) 10 units 1X ONCE SQ ; Start 06/17/18 at 10:00; Stop 06/17/18 at 10:01; Status DC Cefazolin Sodium 50 ml @ 100 mls/hr 1X ONCE IV Last administered on 06/17/18at 11:59; Start 06/17/18 at 12:15; Stop 06/17/18 at 12:49; Status DC Bupivacaine HCl (Sensorcaine Mpf 0.5%) 30 ml STK-MED ONCE INJ Last administered on 06/17/18at 12:11; Start 06/17/18 at 12:11; Stop 06/17/18 at 12:49; Status DC Bupivacaine HCl/ Epinephrine Bitart (Sensorcain-Mpf Epi 0.5%-1:[id number]) 30 ml STK-MED ONCE INJ Last administered on 06/17/18at 12:44; Start 06/17/18 at 12:44; Stop 06/17/18 at 12:49; Status DC Insulin Human Lispro (HumaLOG VIAL) 6 unit 1X ONCE SQ Last administered on 06/17/18at 13:42; Start 06/17/18 at 13:45; Stop 06/17/18 at 13:46; Status DC Ringer's Solution 1,040 ml @ 1,040 mls/hr 1X ONCE IV ; Start 06/17/18 at 14:45; Stop 06/17/18 at 15:44; Status DC Simethicone (Gas-X) 80 mg PRN AFTMEALHC PRN PO GAS / BLOATING Last administered on 06/17/18at 15:16; Start 06/17/18 at 15:00 Insulin Human Lispro (HumaLOG) 11 units TIDWMEALS SQ ; Start 06/18/18 at 12:00 Active Scripts Active Reported Mag-Oxide (Magnesium Oxide) 400 Mg Tablet Tradjenta (Linagliptin) 5 Mg Tablet Tradjenta (Linagliptin) 5 Mg Tablet Lantus Solostar (Insulin Glargine,Hum.rec.anlog) 100 Unit/1 Ml Insuln.pen Diltiazem 24Hr Cd (Diltiazem HCl) 240 Mg Cap.er.24h Losartan Potassium 50 Mg Tablet Metformin Hcl Er (Metformin Hcl) 500 Mg Tab.er.24h Klor-Con 10 (Potassium Chloride) 10 Meq Tablet.er Atorvastatin Calcium 20 Mg Tablet Furosemide 40 Mg Tablet Mirtazapine 30 Mg Tablet Afinitor (Everolimus) 2.5 Mg Tablet Afinitor (Everolimus) 10 Mg Tablet 10 Mg PO DAILY Aromasin (Exemestane) 25 Mg Tablet 25 Mg PO DAILY Xgeva (Denosumab) 120 Mg/1.7 Ml Vial 120 Mg SQ MONTHLY Aleve (Naproxen Sodium) 220 Mg Tablet 440 Mg PO BID Vitamin D3 (Cholecalciferol (Vitamin D3)) 2,000 Unit Tablet 2,000 Unit PO DAILY Calcium (Calcium Carbonate) 500 Mg Tablet 500 Mg PO DAILY Cardizem Cd (Diltiazem Hcl) 240 Mg Cap.er.24h 1 Cap PO BID Hydrocodone-Apap 5-325 (Hydrocodone Bit/Acetaminophen) 1 Each Tablet 1 Tab PO PRN Q6HRS PRN Metformin Hcl 1,000 Mg Tablet 1,000 Mg PO BIDWMEALS Proair Hfa Inhaler (Albuterol Sulfate) 8.5 Gm Hfa.aer.ad 1 Puff INH PRN Q6HRS PRN Losartan Potassium 50 Mg Tablet 50 Mg PO DAILY Montelukast Sodium Tablet (Montelukast Sodium) 10 Mg Tablet 10 Mg PO HS Labetalol Hcl 200 Mg Tablet 200 Mg PO BID Vitals/I & O Vital Sign - Last 24 Hours 06/17/18 06/17/18 06/17/18 06/17/18 12:52 12:52 13:09 13:21 Temp 98.2 98.2 Pulse 88 87 Resp 20 14 25 B/P (MAP) 99/44 102/44 Pulse Ox 97 97 97 O2 Delivery Room Air Nasal Cannula Nasal Cannula Nasal Cannula O2 Flow Rate 3.0 3.0 3.0 3.0 06/17/18 06/17/18 06/17/18 06/17/18 13:24 13:39 13:50 13:54 Temp 98.2 98.2 98.2 98.2 98.2 98.2 Pulse 84 84 83 Resp 17 17 15 B/P (MAP) 112/47 106/45 110/45 Pulse Ox 97 96 96 O2 Delivery Nasal Cannula Nasal Cannula Nasal Cannula Nasal Cannula O2 Flow Rate 3.0 3.0 3.0 3.0 06/17/18 06/17/18 06/17/18 06/17/18 14:43 14:44 15:00 15:01 Temp 98.3 98.3 Pulse 83 83 87 Resp 16 B/P (MAP) 110/45 110/45 116/51 (72) Pulse Ox 94 O2 Delivery Room Air Room Air 06/17/18 06/17/18 06/17/18 06/17/18 16:36 19:00 19:40 19:42 Temp 98.7 98.7 Pulse 94 Resp 18 B/P (MAP) 116/54 (74) Pulse Ox 96 96 96 O2 Delivery Room Air Nasal Cannula Nasal Cannula Nasal Cannula O2 Flow Rate 2.0 2.0 2.0 06/17/18 06/17/18 06/17/18 06/17/18 20:00 21:00 21:09 22:51 Temp 98.2 98.2 Pulse 93 94 93 Resp 18 B/P (MAP) 119/57 116/54 119/57 (77) Pulse Ox 97 O2 Delivery Nasal Cannula Nasal Cannula O2 Flow Rate 2.0 2.0 06/18/18 06/18/18 06/18/18 06/18/18 02:58 07:00 08:07 09:07 Temp 98.7 98.3 98.7 98.3 Pulse 77 90 90 Resp 18 20 B/P (MAP) 119/55 (76) 118/56 (76) 118/56 Pulse Ox 96 95 97 O2 Delivery Nasal Cannula Nasal Cannula Nasal Cannula O2 Flow Rate 2.0 2.0 1.0 06/18/18 06/18/18 06/18/18 09:09 09:09 12:01 Pulse 90 90 B/P (MAP) 118/56 118/56 Pulse Ox 92 O2 Delivery Room Air Intake and Output 06/17/18 06/17/18 06/18/18 15:00 23:00 07:00 Intake Total 500 ml Output Total 10 ml 0 ml Balance 490 ml 0 ml Nutrition Consultation Dietary Evaluation: Recommendations by RD: Increase Calorie Intake, Protein supplementation, PPN/TPN Comments: REC resume ADA diet with glucerna supplements. PPN < 10 days Expected Outcomes/Goals: to meet > 75% est nutr needs- met, goal ongoing Malnutrition Findings: Body Fat Depletion (Non Severe: Mild Depletion Weight Status: Underweight ALIX NORTON MD Jun 18, 2018 12:15
--- NOTE | 2018-06-18 12:36 | PDOC ---
Provider Note Provider Note SURG POD 1 no issues with port placement will sign off Thanks MICHELLE AGUERO MD Jun 18, 2018 12:35
[2018-06-18 19:00] VITALS: BP 128/57
[2018-06-18] MEDS: MONTELUKAST SODIUM 10 MG TABLET. PO SCH (22:09)
[2018-06-18] MEDS: MIRTAZAPINE 7.5 MG TABLET. PO SCH (22:09)
[2018-06-18] MEDS: INSULIN GLARGINE 300 UNITS/3 ML INSULN.PEN. SQ SCH (22:14)
[2018-06-18 23:00] VITALS: BP 129/79
[2018-06-19 03:00] VITALS: BP 121/75
[2018-06-19 07:00] VITALS: BP 118/57
[2018-06-19] MEDS: INSULIN LISPRO 300 UNITS/3 ML INSULN.PEN. SQ SCH ×8 (08:00→17:11)
[2018-06-19] MEDS: BUDESONIDE 0.5 MG/2 ML NEBU. NEB SCH ×2 (08:11→20:20)
[2018-06-19] MEDS: ALBUTEROL SULFATE 2.5 MG/3 ML NEBU. NEB SCH ×4 (08:12→20:00)
[2018-06-19] MEDS: LABETALOL HCL 200 MG TABLET PO SCH ×2 (08:16→21:25)
[2018-06-19] MEDS: CHOLECALCIFEROL (VITAMIN D3) 1,000 UNIT TABLET PO SCH (08:16)
[2018-06-19] MEDS: FUROSEMIDE 40 MG TABLET. PO SCH (08:17)
[2018-06-19] MEDS: ATORVASTATIN CALCIUM 20 MG TABLET PO SCH (08:17)
[2018-06-19] MEDS: LOSARTAN POTASSIUM 50 MG TABLET. PO SCH (08:17)
[2018-06-19] MEDS: MESALAMINE 400 MG CAP.DRTAB. PO SCH ×2 (08:18→21:24)
[2018-06-19] MEDS: CALCIUM CARBONATE 500 MG TABLET PO SCH (08:18)
[2018-06-19] MEDS: NAPROXEN 500 MG TABLET PO SCH ×2 (08:38→21:00)
[2018-06-19] MEDS: SIMETHICONE 80 MG TAB.CHEW PO PRN (08:41)
[2018-06-19 09:47] LABS: CALCIUM 9.4 mg/dL (8.5-10.1); GFR 65.2; POTASSIUM 3.8 mmol/L (3.5-5.1)
[2018-06-19 10:18] LABS: BASO % 0 % (0-3); EOS # 0.1 x10^3/uL (0.0-0.7); EOS % 2 % (0-3); HEMATOCRIT 28.1 % (36.0-47.0); LYMPH # 0.4 x10^3/uL (1.0-4.8); LYMPH % 9 % (24-48); MEAN CORPUSCULAR HEMOGLOBIN 25 pg (25-35); MEAN CORPUSCULAR HGB CONC 32 g/dL (31-37); MEAN CORPUSCULAR VOLUME 78 fL (79-100); MONO # 0.2 x10^3/uL (0.0-1.1); MONO % 5 % (0-9); NEUT # 3.6 x10^3uL (1.8-7.7); NEUT % 84 % (31-73); PLATELET COUNT 259 x10^3/uL (140-400); RED BLOOD COUNT 3.58 x10^6/uL (3.50-5.40); RED CELL DISTRIBUTION WIDTH 19.3 % (11.5-14.5); WHITE BLOOD COUNT 4.3 x10^3/uL (4.0-11.0)
[2018-06-19 11:00] VITALS: BP 105/44
--- NOTE | 2018-06-19 11:56 | PDOC ---
PROGRESS NOTES Chief Complaint Chief Complaint Assessment: Acute hypoxic respiratory failure metastatic breast cancer to bone pleural effusion, poss. 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 Vitals Vitals Vital Signs Date Time Temp Pulse Resp B/P (MAP) Pulse Ox O2 Delivery O2 Flow Rate FiO2 06/19/18 11:45 96 Room Air 06/19/18 11:00 97.7 86 18 105/44 (64) 97.7 06/19/18 07:00 2.0 Physical Exam General: Alert, Oriented X3, No acute distress Heart: Normal S1, Normal S2 Lungs: Crackles, Other (No rales or rhonchi) Abdomen: Normal bowel sounds, Soft, No tenderness, No masses, Other (distended) Extremities: No cyanosis, No edema, Normal pulses, No tenderness/swelling Skin: No rashes, No breakdown, No significant lesion Labs LABS Laboratory Tests Test 06/18/18 12:09 06/18/18 16:13 06/18/18 19:26 06/19/18 07:15 Glucose (Fingerstick) 396 mg/dL (70-99) 303 mg/dL (70-99) 258 mg/dL (70-99) 199 mg/dL (70-99) Test 06/19/18 08:50 06/19/18 11:35 White Blood Count 4.3 x10^3/uL (4.0-11.0) Red Blood Count 3.58 x10^6/uL (3.50-5.40) Hemoglobin 9.0 g/dL (12.0-15.5) Hematocrit 28.1 % (36.0-47.0) Mean Corpuscular Volume 78 fL (79-100) Mean Corpuscular Hemoglobin 25 pg (25-35) Mean Corpuscular Hemoglobin Concent 32 g/dL (31-37) Red Cell Distribution Width 19.3 % (11.5-14.5) Platelet Count 259 x10^3/uL (140-400) Neutrophils (%) (Auto) 84 % (31-73) Lymphocytes (%) (Auto) 9 % (24-48) Monocytes (%) (Auto) 5 % (0-9) Eosinophils (%) (Auto) 2 % (0-3) Basophils (%) (Auto) 0 % (0-3) Neutrophils # (Auto) 3.6 x10^3uL (1.8-7.7) Lymphocytes # (Auto) 0.4 x10^3/uL (1.0-4.8) Monocytes # (Auto) 0.2 x10^3/uL (0.0-1.1) Eosinophils # (Auto) 0.1 x10^3/uL (0.0-0.7) Basophils # (Auto) 0.0 x10^3/uL (0.0-0.2) Sodium Level 144 mmol/L (136-145) Potassium Level 3.8 mmol/L (3.5-5.1) Chloride Level 109 mmol/L (98-107) Carbon Dioxide Level 24 mmol/L (21-32) Anion Gap 11 (6-14) Blood Urea Nitrogen 43 mg/dL (7-20) Creatinine 1.0 mg/dL (0.6-1.0) Estimated GFR (Cockcroft-Gault) 65.2 Glucose Level 203 mg/dL (70-99) Calcium Level 9.4 mg/dL (8.5-10.1) Glucose (Fingerstick) 167 mg/dL (70-99) Review of Systems Review of Systems Complains of weakness Complains of shortness of air Assessment and Plan Assessmemt and Plan Problems Medical Problems: (1) Ascites Status: Acute (2) Cholelithiasis Status: Acute (3) Pleural effusion Status: Acute (4) Shortness of breath Status: Acute Assessment: Acute hypoxic respiratory failure metastatic breast cancer to bone pleural effusion, poss. malignant or transudative Dm1 chronic HTN, hypotension today OA Osteoporosis HLD Asthma GERD Anorexia Depression Plan: O2 supplement Encourage PO intake Hypotension- held diltiazem and labetalol Oncology consult- Dr. Car GI consult- Dr. Mancini Pulmonology consult- Dr. Corona General surgery consult- Dr. Velazquez F/u labs PT/OT DVT prophylaxis Continue home meds Discharge disposition pending Comment Review of Relevant I have reviewed the following items patrica (where applicable) has been applied. Labs Laboratory Tests Test 06/17/18 11:59 06/17/18 13:04 06/17/18 14:39 06/17/18 16:57 Glucose (Fingerstick) 256 mg/dL (70-99) 261 mg/dL (70-99) 240 mg/dL (70-99) 245 mg/dL (70-99) Test 06/17/18 20:44 06/18/18 03:10 06/18/18 07:17 06/18/18 12:09 Glucose (Fingerstick) 276 mg/dL (70-99) 337 mg/dL (70-99) 396 mg/dL (70-99) White Blood Count 4.0 x10^3/uL (4.0-11.0) Red Blood Count 3.20 x10^6/uL (3.50-5.40) Hemoglobin 8.2 g/dL (12.0-15.5) Hematocrit 25.4 % (36.0-47.0) Mean Corpuscular Volume 79 fL (79-100) Mean Corpuscular Hemoglobin 26 pg (25-35) Mean Corpuscular Hemoglobin Concent 32 g/dL (31-37) Red Cell Distribution Width 19.2 % (11.5-14.5) Platelet Count 209 x10^3/uL (140-400) Neutrophils (%) (Auto) 88 % (31-73) Lymphocytes (%) (Auto) 5 % (24-48) Monocytes (%) (Auto) 7 % (0-9) Eosinophils (%) (Auto) 0 % (0-3) Basophils (%) (Auto) 0 % (0-3) Neutrophils # (Auto) 3.5 x10^3uL (1.8-7.7) Lymphocytes # (Auto) 0.2 x10^3/uL (1.0-4.8) Monocytes # (Auto) 0.3 x10^3/uL (0.0-1.1) Eosinophils # (Auto) 0.0 x10^3/uL (0.0-0.7) Basophils # (Auto) 0.0 x10^3/uL (0.0-0.2) Sodium Level 141 mmol/L (136-145) Potassium Level 5.2 mmol/L (3.5-5.1) Chloride Level 107 mmol/L (98-107) Carbon Dioxide Level 23 mmol/L (21-32) Anion Gap 11 (6-14) Blood Urea Nitrogen 39 mg/dL (7-20) Creatinine 1.0 mg/dL (0.6-1.0) Estimated GFR (Cockcroft-Gault) 65.2 Glucose Level 345 mg/dL (70-99) Calcium Level 9.3 mg/dL (8.5-10.1) Test 06/18/18 16:13 06/18/18 19:26 06/19/18 07:15 06/19/18 08:50 Glucose (Fingerstick) 303 mg/dL (70-99) 258 mg/dL (70-99) 199 mg/dL (70-99) White Blood Count 4.3 x10^3/uL (4.0-11.0) Red Blood Count 3.58 x10^6/uL (3.50-5.40) Hemoglobin 9.0 g/dL (12.0-15.5) Hematocrit 28.1 % (36.0-47.0) Mean Corpuscular Volume 78 fL (79-100) Mean Corpuscular Hemoglobin 25 pg (25-35) Mean Corpuscular Hemoglobin Concent 32 g/dL (31-37) Red Cell Distribution Width 19.3 % (11.5-14.5) Platelet Count 259 x10^3/uL (140-400) Neutrophils (%) (Auto) 84 % (31-73) Lymphocytes (%) (Auto) 9 % (24-48) Monocytes (%) (Auto) 5 % (0-9) Eosinophils (%) (Auto) 2 % (0-3) Basophils (%) (Auto) 0 % (0-3) Neutrophils # (Auto) 3.6 x10^3uL (1.8-7.7) Lymphocytes # (Auto) 0.4 x10^3/uL (1.0-4.8) Monocytes # (Auto) 0.2 x10^3/uL (0.0-1.1) Eosinophils # (Auto) 0.1 x10^3/uL (0.0-0.7) Basophils # (Auto) 0.0 x10^3/uL (0.0-0.2) Sodium Level 144 mmol/L (136-145) Potassium Level 3.8 mmol/L (3.5-5.1) Chloride Level 109 mmol/L (98-107) Carbon Dioxide Level 24 mmol/L (21-32) Anion Gap 11 (6-14) Blood Urea Nitrogen 43 mg/dL (7-20) Creatinine 1.0 mg/dL (0.6-1.0) Estimated GFR (Cockcroft-Gault) 65.2 Glucose Level 203 mg/dL (70-99) Calcium Level 9.4 mg/dL (8.5-10.1) Test 06/19/18 11:35 Glucose (Fingerstick) 167 mg/dL (70-99) Laboratory Tests Test 06/18/18 12:09 06/18/18 16:13 06/18/18 19:26 06/19/18 07:15 Glucose (Fingerstick) 396 mg/dL (70-99) 303 mg/dL (70-99) 258 mg/dL (70-99) 199 mg/dL (70-99) Test 06/19/18 08:50 06/19/18 11:35 White Blood Count 4.3 x10^3/uL (4.0-11.0) Red Blood Count 3.58 x10^6/uL (3.50-5.40) Hemoglobin 9.0 g/dL (12.0-15.5) Hematocrit 28.1 % (36.0-47.0) Mean Corpuscular Volume 78 fL (79-100) Mean Corpuscular Hemoglobin 25 pg (25-35) Mean Corpuscular Hemoglobin Concent 32 g/dL (31-37) Red Cell Distribution Width 19.3 % (11.5-14.5) Platelet Count 259 x10^3/uL (140-400) Neutrophils (%) (Auto) 84 % (31-73) Lymphocytes (%) (Auto) 9 % (24-48) Monocytes (%) (Auto) 5 % (0-9) Eosinophils (%) (Auto) 2 % (0-3) Basophils (%) (Auto) 0 % (0-3) Neutrophils # (Auto) 3.6 x10^3uL (1.8-7.7) Lymphocytes # (Auto) 0.4 x10^3/uL (1.0-4.8) Monocytes # (Auto) 0.2 x10^3/uL (0.0-1.1) Eosinophils # (Auto) 0.1 x10^3/uL (0.0-0.7) Basophils # (Auto) 0.0 x10^3/uL (0.0-0.2) Sodium Level 144 mmol/L (136-145) Potassium Level 3.8 mmol/L (3.5-5.1) Chloride Level 109 mmol/L (98-107) Carbon Dioxide Level 24 mmol/L (21-32) Anion Gap 11 (6-14) Blood Urea Nitrogen 43 mg/dL (7-20) Creatinine 1.0 mg/dL (0.6-1.0) Estimated GFR (Cockcroft-Gault) 65.2 Glucose Level 203 mg/dL (70-99) Calcium Level 9.4 mg/dL (8.5-10.1) Glucose (Fingerstick) 167 mg/dL (70-99) Microbiology 06/11/18 Blood Culture - Final, Complete NO GROWTH AFTER 5 DAYS 06/12/18 Anaerobic/Aerobic Culture - Final, Complete 06/12/18 Anaerobic Culture Result 1 (KEISHA) - Final, Complete 06/12/18 Aerobic Culture - Final, Complete 06/12/18 Aerobic Culture Result 1 (KEISHA) - Final, Complete 06/12/18 Gram Stain - Final, Complete 06/12/18 Gram Stain Result 1 (KEISHA) - Final, Complete 06/12/18 Gram Stain Result 2 (KEISHA) - Final, Complete 06/11/18 Urine Culture - Final, Complete 06/11/18 Urine Culture Result 1 (KEISHA) - Final, Complete 06/11/18 Antimicrobic Susceptibility - Final, Complete Medications Current Medications Albuterol/ Ipratropium (Duoneb) 3 ml 1X ONCE NEB Last administered on 06/11/18at 17:19; Start 06/11/18 at 17:15; Stop 06/11/18 at 17:16; Status DC Ondansetron HCl (Zofran) 4 mg PRN Q8HRS PRN IV NAUSEA/VOMITING; Start 06/11/18 at 19:15; Stop 06/12/18 at 19:14; Status DC Morphine Sulfate (Morphine Sulfate) 4 mg PRN Q2HR PRN IV PAIN; Start 06/11/18 at 19:15; Stop 06/12/18 at 19:14; Status DC Acetaminophen (Tylenol) 650 mg PRN Q4HRS PRN PO FEVER; Start 06/11/18 at 19:15; Stop 06/12/18 at 19:14; Status DC Dextrose (Dextrose 50%-Water Syringe) 12.5 gm PRN Q15MIN PRN IV SEE COMMENTS; Start 06/11/18 at 19:15; Status Cancel Insulin Human Regular (HumuLIN R VIAL) 5 unit 1X ONCE IV Last administered on 06/11/18at 20:11; Start 06/11/18 at 19:30; Stop 06/11/18 at 19:31; Status DC Albuterol Sulfate (Ventolin Neb Soln) 2.5 mg PRN Q6HRS PRN INH SHORTNESS OF BREATH Last administered on 06/12/18at 08:37; Start 06/11/18 at 20:45 Atorvastatin Calcium (Lipitor) 20 mg DAILY PO Last administered on 06/19/18 08:17; Start 06/12/18 at 09:00 Calcium Carbonate/ Glycine (Oscal) 500 mg DAILY PO Last administered on 08:18; Start 06/12/18 at 09:00 Furosemide (Lasix) 40 mg DAILY PO Last administered on 06/19/18 08:17; Start 06/12/18 at 09:00 Acetaminophen/ Hydrocodone Bitart (Lortab 5/325) 1 tab PRN Q6HRS PRN PO PAIN Last administered on 06/17/18at 13:21; Start 06/11/18 at 20:45 Losartan Potassium (Cozaar) 50 mg DAILY PO Last administered on 06/19/18 08:17; Start 06/12/18 at 09:00 Vitamin D (Vitamin D3) 2,000 unit DAILY PO Last administered on 06/19/18 08:16; Start 06/12/18 at 09:00 Diltiazem HCl (Cardizem 24hr Cd) 240 mg BID PO Last administered on 06/19/18 08:16; Start 06/11/18 at 21:00 Non-Formulary Medication (Everolimus (Afinitor)) 10 mg DAILY PO ; Start 06/12/18 at 09:00; Stop 06/12/18 at 09:00; Status DC Non-Formulary Medication (Exemestane (Aromasin)) 25 mg DAILY PO ; Start 06/12/18 at 09:00; Stop 06/12/18 at 09:00; Status DC Labetalol HCl (Trandate) 200 mg BID PO Last administered on 06/19/18 08:16; Start 06/11/18 at 21:00 Non-Formulary Medication (Metformin Hcl ) 1,000 mg BIDWMEALS PO ; Start 06/12/18 at 08:00; Status UNV Montelukast Sodium (Singulair) 10 mg QHS PO Last administered on 06/18/18at 22:09; Start 06/11/18 at 21:00 Naproxen (Naprosyn) 500 mg BID PO Last administered on 06/18/18 22:09; Start 06/11/18 at 21:00 Insulin Human Lispro (HumaLOG) 0-7 UNITS TIDWMEALS SQ Last administered on 06/19/18 08:00; Start 06/12/18 at 08:00 Dextrose (Dextrose 50%-Water Syringe) 12.5 gm PRN Q15MIN PRN IV SEE COMMENTS; Start 06/11/18 at 20:45 Insulin Glargine (Lantus) 7 units QHS SQ Last administered on 06/16/18at 20:51; Start 06/11/18 at 21:45; Stop 06/17/18 at 09:53; Status DC Loperamide HCl (Imodium) 2 mg PRN Q15MIN PRN PO DIARRHEA (1st Choice); Start 06/12/18 at 08:45 Diphenoxylate HCl/ Atropine (Lomotil) 1 tab PRN QID PRN PO DIARRHEA (2nd Choice) Last administered on 06/12/18at 10:16; Start 06/12/18 at 08:45 Dronabinol (Marinol) 5 mg BIDACLD PO Last administered on 06/13/18 17:12; Start 06/12/18 at 11:30; Stop 06/14/18 at 12:20; Status DC Albumin Human 500 ml @ 125 mls/hr 1X ONCE IV Last administered on 06/12/18at 15:58; Start 06/12/18 at 09:30; Stop 06/12/18 at 13:29; Status DC Pantoprazole Sodium (Protonix) 40 mg DAILYAC PO Last administered on 06/13/18at 07:30; Start 06/12/18 at 11:30; Stop 06/13/18 at 11:24; Status DC Zolpidem Tartrate (Ambien) 5 mg PRN QHS PRN PO INSOMNIA; Start 06/12/18 at 11:30 Mirtazapine (Remeron) 7.5 mg QHS PO Last administered on 06/18/18at 22:09; Start 06/12/18 at 21:00 Mesalamine (Delzicol) 800 mg BID PO Last administered on 06/19/18at 08:18; Start 06/12/18 at 15:00 Albuterol Sulfate (Ventolin Neb Soln) 2.5 mg RTQID NEB Last administered on 06/19/18at 11:45; Start 06/12/18 at 16:00 Budesonide (Pulmicort) 0.5 mg RTBID NEB Last administered on 06/19/18at 08:11; Start 06/12/18 at 20:00 Ondansetron HCl (Zofran) 4 mg STK-MED ONCE .ROUTE ; Start 06/14/18 at 11:10; Stop 06/14/18 at 11:11; Status DC Propofol 20 ml @ As Directed STK-MED ONCE IV ; Start 06/14/18 at 11:10; Stop 06/14/18 at 11:11; Status DC Lidocaine HCl (Lidocaine Pf 2% Vial) 5 ml STK-MED ONCE .ROUTE ; Start 06/14/18 at 11:10; Stop 06/14/18 at 11:11; Status DC Sevoflurane (Ultane) 60 ml STK-MED ONCE IH ; Start 06/14/18 at 11:10; Stop at 11:11; Status DC Fentanyl Citrate (Fentanyl 2ml Vial) 100 mcg STK-MED ONCE .ROUTE ; Start 06/14/18 at 11:10; Stop 06/14/18 at 11:11; Status DC Succinylcholine Chloride (Anectine) 200 mg STK-MED ONCE .ROUTE ; Start 06/14/18 at 11:10; Stop 06/14/18 at 11:11; Status DC Dexamethasone Sodium Phosphate (Decadron) 4 mg STK-MED ONCE .ROUTE ; Start 06/14/18 at 11:10; Stop 06/14/18 at 11:11; Status DC Glycopyrrolate (Robinul) 1 mg STK-MED ONCE .ROUTE ; Start 06/14/18 at 11:11; Stop 06/14/18 at 11:12; Status DC Neostigmine Methylsulfate (Neostigmine Methylsulfate) 5 mg STK-MED ONCE .ROUTE ; Start 06/14/18 at 11:11; Stop 06/14/18 at 11:12; Status DC Rocuronium Homer (Zemuron) 50 mg STK-MED ONCE .ROUTE ; Start 06/14/18 at 11:11; Stop 06/14/18 at 11:12; Status DC Dronabinol (Marinol) 2.5 mg BIDACLD PO ; Start 06/14/18 at 16:30; Stop 06/14/18 at 16:35; Status DC Dronabinol (Marinol) 2.5 mg BIDACLD PO Last administered on 06/17/18at 16:56; Start 06/16/18 at 11:30 Amino Acids/ Glycerin/ Electrolytes 1,000 ml @ 80 mls/hr [id number] IV Last administered on 06/17/18at 23:05; Start 06/16/18 at 11:00; Stop 06/18/18 at 10:33; Status DC Cefazolin Sodium 3 gm/Dextrose 100 ml @ 200 mls/hr 1X PREOP PRN IV protocol; Start 06/17/18 at 06:00; Stop 06/17/18 at 15:00; Status Cancel Insulin Glargine (Lantus) 14 units QHS SQ Last administered on 06/17/18at 21:16; Start 06/17/18 at 21:00; Stop 06/18/18 at 12:14; Status DC Insulin Human Lispro (HumaLOG) 5 units TIDWMEALS SQ Last administered on 06/18/18at 09:18; Start 06/17/18 at 12:00; Stop 06/18/18 at 10:34; Status DC Insulin Human Lispro (HumaLOG) 10 units 1X ONCE SQ ; Start 06/17/18 at 10:00; Stop 06/17/18 at 10:01; Status DC Cefazolin Sodium 50 ml @ 100 mls/hr 1X ONCE IV Last administered on 06/17/18at 11:59; Start 06/17/18 at 12:15; Stop 06/17/18 at 12:49; Status DC Bupivacaine HCl (Sensorcaine Mpf 0.5%) 30 ml STK-MED ONCE INJ Last administered on 06/17/18at 12:11; Start 06/17/18 at 12:11; Stop 06/17/18 at 12:49; Status DC Bupivacaine HCl/ Epinephrine Bitart (Sensorcain-Mpf Epi 0.5%-1:[id number]) 30 ml STK-MED ONCE INJ Last administered on 06/17/18at 12:44; Start 06/17/18 at 12:44; Stop 06/17/18 at 12:49; Status DC Insulin Human Lispro (HumaLOG VIAL) 6 unit 1X ONCE SQ Last administered on 06/17/18at 13:42; Start 06/17/18 at 13:45; Stop 06/17/18 at 13:46; Status DC Ringer's Solution 1,040 ml @ 1,040 mls/hr 1X ONCE IV ; Start 06/17/18 at 14: 45; Stop 06/17/18 at 15:44; Status DC Simethicone (Gas-X) 80 mg PRN AFTMEALHC PRN PO GAS / BLOATING Last administered on 06/19/18at 08:41; Start 06/17/18 at 15:00 Insulin Human Lispro (HumaLOG) 11 units TIDWMEALS SQ ; Start 06/18/18 at 12:00; Stop 06/18/18 at 14:57; Status DC Insulin Glargine (Lantus) 22 units QHS SQ Last administered on 06/18/18at 22:14; Start 06/18/18 at 21:00 Insulin Human Lispro (HumaLOG) 13 units TIDWMEALS SQ Last administered on 06/19/18at 08:00; Start 06/18/18 at 17:00 Active Scripts Active Reported Mag-Oxide (Magnesium Oxide) 400 Mg Tablet Tradjenta (Linagliptin) 5 Mg Tablet Tradjenta (Linagliptin) 5 Mg Tablet Lantus Solostar (Insulin Glargine,Hum.rec.anlog) 100 Unit/1 Ml Insuln.pen Diltiazem 24Hr Cd (Diltiazem HCl) 240 Mg Cap.er.24h Losartan Potassium 50 Mg Tablet Metformin Hcl Er (Metformin Hcl) 500 Mg Tab.er.24h Klor-Con 10 (Potassium Chloride) 10 Meq Tablet.er Atorvastatin Calcium 20 Mg Tablet Furosemide 40 Mg Tablet Mirtazapine 30 Mg Tablet Afinitor (Everolimus) 2.5 Mg Tablet Afinitor (Everolimus) 10 Mg Tablet 10 Mg PO DAILY Aromasin (Exemestane) 25 Mg Tablet 25 Mg PO DAILY Xgeva (Denosumab) 120 Mg/1.7 Ml Vial 120 Mg SQ MONTHLY Aleve (Naproxen Sodium) 220 Mg Tablet 440 Mg PO BID Vitamin D3 (Cholecalciferol (Vitamin D3)) 2,000 Unit Tablet 2,000 Unit PO DAILY Calcium (Calcium Carbonate) 500 Mg Tablet 500 Mg PO DAILY Cardizem Cd (Diltiazem Hcl) 240 Mg Cap.er.24h 1 Cap PO BID Hydrocodone-Apap 5-325 (Hydrocodone Bit/Acetaminophen) 1 Each Tablet 1 Tab PO PRN Q6HRS PRN Metformin Hcl 1,000 Mg Tablet 1,000 Mg PO BIDWMEALS Proair Hfa Inhaler (Albuterol Sulfate) 8.5 Gm Hfa.aer.ad 1 Puff INH PRN Q6HRS PRN Losartan Potassium 50 Mg Tablet 50 Mg PO DAILY Montelukast Sodium Tablet (Montelukast Sodium) 10 Mg Tablet 10 Mg PO HS Labetalol Hcl 200 Mg Tablet 200 Mg PO BID Vitals/I & O Vital Sign - Last 24 Hours 06/18/18 06/18/18 06/18/18 06/18/18 12:01 16:10 19:00 19:33 Temp 98.3 98.3 Pulse 98 Resp 22 B/P (MAP) 128/57 (80) Pulse Ox 92 93 95 99 O2 Delivery Room Air Room Air Nasal Cannula Room Air O2 Flow Rate 2.0 06/18/18 06/18/18 06/18/18 06/18/18 20:00 22:09 22:09 23:00 Temp 98.5 98.5 Pulse 98 98 94 Resp 22 B/P (MAP) 128/57 128/57 129/79 (96) Pulse Ox 93 O2 Delivery Room Air Nasal Cannula O2 Flow Rate 2.0 06/19/18 06/19/18 06/19/18 06/19/18 03:00 07:00 07:00 08:00 Temp 98.5 97.9 97.9 98.5 97.9 97.9 Pulse 87 87 87 Resp 22 18 18 B/P (MAP) 121/75 (90) 118/57 (77) 118/57 (77) Pulse Ox 94 95 95 O2 Delivery Nasal Cannula Room Air Room Air Room Air O2 Flow Rate 2.0 2.0 06/19/18 06/19/18 06/19/18 06/19/18 08:12 08:16 08:16 08:17 Pulse 87 87 87 B/P (MAP) 118/57 118/57 118/57 Pulse Ox 93 O2 Delivery Room Air 06/19/18 06/19/18 11:00 11:45 Temp 97.7 97.7 Pulse 86 Resp 18 B/P (MAP) 105/44 (64) Pulse Ox 94 96 O2 Delivery Room Air Room Air Intake and Output 06/18/18 06/18/18 06/19/18 15:00 23:00 07:00 Intake Total 220 ml 0 ml 0 ml Balance 220 ml 0 ml 0 ml Nutrition Consultation Dietary Evaluation: Recommendations by RD: Increase Calorie Intake, Protein supplementation, PPN/TPN Comments: REC resume ADA diet with glucerna supplements. PPN < 10 days Expected Outcomes/Goals: to meet > 75% est nutr needs- met, goal ongoing Malnutrition Findings: Body Fat Depletion (Non Severe: Mild Depletion Weight Status: Underweight VIVI LUNDBERG III, DO June 19, 2018 11:56
[2018-06-19] MEDS: DRONABINOL 2.5 MG CAPSULE. PO SCH ×2 (12:16→17:00)
--- NOTE | 2018-06-19 13:38 | NUR ---
SW following pt. MAILE extensively discussed with pt and pt's daughter in law, Judi, in room regarding dc plan. Pt and daughter in law are interested in SNU placement at [facility]. MAILE discussed PT assessment indicate pt is more appropriate for home health services. The last time pt worked with PT was on 06/16/18 and SW requested PT to assess Pt today. Judi discussed pt has a lot of stairs at home and has chemo/doctor appointments at least twice a week. Judi reports pt is not able to use stairs at home and they are concerned that pt might fall. MAILE discussed barriers for SNU and going home at this time. SW also encouraged pt to consider going to her son's place for a while until she completes chemo as they do not have a lot of stairs. MAILE discussed SW can arrange EMS transport when pt goes home but they will have to come up with their own plan on how to transport Pt for her appointments after she discharges from the hospital. MAILE also discussed [facility] is not under [facility] and [facility] might be a preferred provider for [place]. MAILE also discussed pt is not able to do chemo treatment while at [facility] but PT assessment will need to indicate the need and insurance will have to approve the request as well. Judi discussed fears about pt losing strength in the near future 'if she gets fluid overload again'. MAILE discussed Pt might continue to get weak due to medical condition and that might not be able to be fixed with PT/OT intervention. Daughter in law interested for a walker and Physician notified for Rx. MAILE discussed will await for PT's assessment today to eval needs for Skilled but encouraged pt to consider going home with her family (if she is does not qualify for SNU) as they seem to be a good support system for her. Spoke with Bi from PT who will be working with pt on stairs. Discussed with RN.
--- NOTE | 2018-06-19 14:41 | NUR ---
MAILE following pt. After speaking with Bi from PT, MAILE phoned and faxed referral to [facility]. Pt acceptance and admission pending. Will continue to follow.
[2018-06-19 15:00] VITALS: BP 96/40
[2018-06-19] MEDS ORDERED: ALBUMIN HUMAN 25% 50 ML IV ONE (15:00)
[2018-06-19] MEDS ORDERED: FUROSEMIDE 40 MG/4 ML VIAL. IVP ONE (18:00)
[2018-06-19 19:00] VITALS: BP 119/53
[2018-06-19] MEDS: MIRTAZAPINE 7.5 MG TABLET. PO SCH (21:25)
[2018-06-19] MEDS: MONTELUKAST SODIUM 10 MG TABLET. PO SCH (21:25)
[2018-06-19] MEDS: INSULIN GLARGINE 300 UNITS/3 ML INSULN.PEN. SQ SCH (21:33)
[2018-06-19 23:00] VITALS: BP 117/58
[2018-06-20 03:00] VITALS: BP 113/59
[2018-06-20 05:49] LABS: CALCIUM 8.9 mg/dL (8.5-10.1); GFR 65.2; POTASSIUM 3.9 mmol/L (3.5-5.1)
[2018-06-20 06:19] LABS: BASO % 0 % (0-3); EOS # 0.1 x10^3/uL (0.0-0.7); EOS % 2 % (0-3); HEMATOCRIT 25.3 % (36.0-47.0); LYMPH # 0.5 x10^3/uL (1.0-4.8); LYMPH % 10 % (24-48); MEAN CORPUSCULAR HEMOGLOBIN 25 pg (25-35); MEAN CORPUSCULAR HGB CONC 32 g/dL (31-37); MEAN CORPUSCULAR VOLUME 78 fL (79-100); MONO # 0.5 x10^3/uL (0.0-1.1); MONO % 12 % (0-9); NEUT # 3.3 x10^3uL (1.8-7.7); NEUT % 75 % (31-73); PLATELET COUNT 230 x10^3/uL (140-400); RED BLOOD COUNT 3.22 x10^6/uL (3.50-5.40); RED CELL DISTRIBUTION WIDTH 19.6 % (11.5-14.5); WHITE BLOOD COUNT 4.5 x10^3/uL (4.0-11.0)
[2018-06-20 07:00] VITALS: BP 124/57
[2018-06-20] MEDS: BUDESONIDE 0.5 MG/2 ML NEBU. NEB SCH ×2 (07:05→21:17)
[2018-06-20] MEDS: ALBUTEROL SULFATE 2.5 MG/3 ML NEBU. NEB SCH ×4 (07:05→21:17)
[2018-06-20] MEDS: NAPROXEN 500 MG TABLET PO SCH ×2 (07:42→21:00)
[2018-06-20] MEDS: INSULIN LISPRO 300 UNITS/3 ML INSULN.PEN. SQ SCH ×6 (08:00→17:00)
--- NOTE | 2018-06-20 09:02 | PDOC ---
PROGRESS NOTES Subjective Subjective HPI - f/u of Metastatic breast cancer ROS - no dyspnea Objective Objective Vital Signs Date Time Temp Pulse Resp B/P (MAP) Pulse Ox O2 Delivery O2 Flow Rate FiO2 06/20/18 07:06 95 Room Air 06/20/18 07:00 98.1 91 20 124/57 (79) 98.1 06/19/18 07:00 2.0 Intake and Output 06/20/18 06:59 Intake Total 0 ml Output Total 550 ml Balance -550 ml Intake Oral 0 ml Output Urine Total 550 ml # Voids 1 Physical Exam Heart: Normal S1, Normal S2 General: Alert, Oriented X3 Lungs: Clear to auscultation Neuro: Normal speech Psych/Mental Status: Mental status NL Assessment Assessment Problems Medical Problems: (1) Ascites Status: Acute (2) Cholelithiasis Status: Acute (3) Pleural effusion Status: Acute (4) Shortness of breath Status: Acute Assessment and Plan: She is a 78-year-old female with metastatic breast cancer to the bones and ascites and pleural effusions 1. Metastatic breast cancer: Concern for progressive disease (on bone scan and fluid accumulation possibly) as well as side effects from treatment, will hold exemestane and everolimus, Plan abraxane chemo as outpt 06/21/18. I d/w pharmacy. Consulted Dr Velazquez for port, s/p port on 06/17/18. 2. Pleural effusion. 1000 cc's of thin yellow fluid was removed, left side 06/12/18.. Cytology positive for malignancy per Dr Meléndez. 3. Ascites. 255 cc of thin yellow ascites was then withdrawn 06/12/18. Cytology positive for malignancy per Dr Meléndez 4. Anemia with microcytosis: ferritin and iron panel reveal anemia due to chronic disease. Comment Review of Relevant I have reviewed the following items patrica (where applicable) has been applied. Labs Laboratory Tests Test 06/18/18 12:09 06/18/18 16:13 06/18/18 19:26 06/19/18 07:15 Glucose (Fingerstick) 396 mg/dL (70-99) 303 mg/dL (70-99) 258 mg/dL (70-99) 199 mg/dL (70-99) Test 06/19/18 08:50 06/19/18 11:35 06/19/18 16:33 06/19/18 20:53 White Blood Count 4.3 x10^3/uL (4.0-11.0) Red Blood Count 3.58 x10^6/uL (3.50-5.40) Hemoglobin 9.0 g/dL (12.0-15.5) Hematocrit 28.1 % (36.0-47.0) Mean Corpuscular Volume 78 fL (79-100) Mean Corpuscular Hemoglobin 25 pg (25-35) Mean Corpuscular Hemoglobin Concent 32 g/dL (31-37) Red Cell Distribution Width 19.3 % (11.5-14.5) Platelet Count 259 x10^3/uL (140-400) Neutrophils (%) (Auto) 84 % (31-73) Lymphocytes (%) (Auto) 9 % (24-48) Monocytes (%) (Auto) 5 % (0-9) Eosinophils (%) (Auto) 2 % (0-3) Basophils (%) (Auto) 0 % (0-3) Neutrophils # (Auto) 3.6 x10^3uL (1.8-7.7) Lymphocytes # (Auto) 0.4 x10^3/uL (1.0-4.8) Monocytes # (Auto) 0.2 x10^3/uL (0.0-1.1) Eosinophils # (Auto) 0.1 x10^3/uL (0.0-0.7) Basophils # (Auto) 0.0 x10^3/uL (0.0-0.2) Sodium Level 144 mmol/L (136-145) Potassium Level 3.8 mmol/L (3.5-5.1) Chloride Level 109 mmol/L (98-107) Carbon Dioxide Level 24 mmol/L (21-32) Anion Gap 11 (6-14) Blood Urea Nitrogen 43 mg/dL (7-20) Creatinine 1.0 mg/dL (0.6-1.0) Estimated GFR (Cockcroft-Gault) 65.2 Glucose Level 203 mg/dL (70-99) Calcium Level 9.4 mg/dL (8.5-10.1) Glucose (Fingerstick) 167 mg/dL (70-99) 138 mg/dL (70-99) 150 mg/dL (70-99) Test 06/20/18 02:45 06/20/18 05:30 06/20/18 07:48 Glucose (Fingerstick) 163 mg/dL (70-99) 139 mg/dL (70-99) White Blood Count 4.5 x10^3/uL (4.0-11.0) Red Blood Count 3.22 x10^6/uL (3.50-5.40) Hemoglobin 8.0 g/dL (12.0-15.5) Hematocrit 25.3 % (36.0-47.0) Mean Corpuscular Volume 78 fL (79-100) Mean Corpuscular Hemoglobin 25 pg (25-35) Mean Corpuscular Hemoglobin Concent 32 g/dL (31-37) Red Cell Distribution Width 19.6 % (11.5-14.5) Platelet Count 230 x10^3/uL (140-400) Neutrophils (%) (Auto) 75 % (31-73) Lymphocytes (%) (Auto) 10 % (24-48) Monocytes (%) (Auto) 12 % (0-9) Eosinophils (%) (Auto) 2 % (0-3) Basophils (%) (Auto) 0 % (0-3) Neutrophils # (Auto) 3.3 x10^3uL (1.8-7.7) Lymphocytes # (Auto) 0.5 x10^3/uL (1.0-4.8) Monocytes # (Auto) 0.5 x10^3/uL (0.0-1.1) Eosinophils # (Auto) 0.1 x10^3/uL (0.0-0.7) Basophils # (Auto) 0.0 x10^3/uL (0.0-0.2) Sodium Level 141 mmol/L (136-145) Potassium Level 3.9 mmol/L (3.5-5.1) Chloride Level 109 mmol/L (98-107) Carbon Dioxide Level 26 mmol/L (21-32) Anion Gap 6 (6-14) Blood Urea Nitrogen 42 mg/dL (7-20) Creatinine 1.0 mg/dL (0.6-1.0) Estimated GFR (Cockcroft-Gault) 65.2 Glucose Level 158 mg/dL (70-99) Calcium Level 8.9 mg/dL (8.5-10.1) Laboratory Tests Test 06/19/18 11:35 06/19/18 16:33 06/19/18 20:53 06/20/18 02:45 Glucose (Fingerstick) 167 mg/dL (70-99) 138 mg/dL (70-99) 150 mg/dL (70-99) 163 mg/dL (70-99) Test 06/20/18 05:30 06/20/18 07:48 White Blood Count 4.5 x10^3/uL (4.0-11.0) Red Blood Count 3.22 x10^6/uL (3.50-5.40) Hemoglobin 8.0 g/dL (12.0-15.5) Hematocrit 25.3 % (36.0-47.0) Mean Corpuscular Volume 78 fL (79-100) Mean Corpuscular Hemoglobin 25 pg (25-35) Mean Corpuscular Hemoglobin Concent 32 g/dL (31-37) Red Cell Distribution Width 19.6 % (11.5-14.5) Platelet Count 230 x10^3/uL (140-400) Neutrophils (%) (Auto) 75 % (31-73) Lymphocytes (%) (Auto) 10 % (24-48) Monocytes (%) (Auto) 12 % (0-9) Eosinophils (%) (Auto) 2 % (0-3) Basophils (%) (Auto) 0 % (0-3) Neutrophils # (Auto) 3.3 x10^3uL (1.8-7.7) Lymphocytes # (Auto) 0.5 x10^3/uL (1.0-4.8) Monocytes # (Auto) 0.5 x10^3/uL (0.0-1.1) Eosinophils # (Auto) 0.1 x10^3/uL (0.0-0.7) Basophils # (Auto) 0.0 x10^3/uL (0.0-0.2) Sodium Level 141 mmol/L (136-145) Potassium Level 3.9 mmol/L (3.5-5.1) Chloride Level 109 mmol/L (98-107) Carbon Dioxide Level 26 mmol/L (21-32) Anion Gap 6 (6-14) Blood Urea Nitrogen 42 mg/dL (7-20) Creatinine 1.0 mg/dL (0.6-1.0) Estimated GFR (Cockcroft-Gault) 65.2 Glucose Level 158 mg/dL (70-99) Calcium Level 8.9 mg/dL (8.5-10.1) Glucose (Fingerstick) 139 mg/dL (70-99) Microbiology 06/11/18 Blood Culture - Final, Complete NO GROWTH AFTER 5 DAYS 06/12/18 Anaerobic/Aerobic Culture - Final, Complete 06/12/18 Anaerobic Culture Result 1 (KEISHA) - Final, Complete 06/12/18 Aerobic Culture - Final, Complete 06/12/18 Aerobic Culture Result 1 (KEISHA) - Final, Complete 06/12/18 Gram Stain - Final, Complete 06/12/18 Gram Stain Result 1 (KEISHA) - Final, Complete 06/12/18 Gram Stain Result 2 (KEISHA) - Final, Complete 06/11/18 Urine Culture - Final, Complete 06/11/18 Urine Culture Result 1 (KEISHA) - Final, Complete 06/11/18 Antimicrobic Susceptibility - Final, Complete Medications Current Medications Albuterol/ Ipratropium (Duoneb) 3 ml 1X ONCE NEB Last administered on 06/11/18at 17:19; Start 06/11/18 at 17:15; Stop 06/11/18 at 17:16; Status DC Ondansetron HCl (Zofran) 4 mg PRN Q8HRS PRN IV NAUSEA/VOMITING; Start 06/11/18 at 19:15; Stop 06/12/18 at 19:14; Status DC Morphine Sulfate (Morphine Sulfate) 4 mg PRN Q2HR PRN IV PAIN; Start 06/11/18 at 19:15; Stop 06/12/18 at 19:14; Status DC Acetaminophen (Tylenol) 650 mg PRN Q4HRS PRN PO FEVER; Start 06/11/18 at 19:15; Stop 06/12/18 at 19:14; Status DC Dextrose (Dextrose 50%-Water Syringe) 12.5 gm PRN Q15MIN PRN IV SEE COMMENTS; Start 06/11/18 at 19:15; Status Cancel Insulin Human Regular (HumuLIN R VIAL) 5 unit 1X ONCE IV Last administered on 06/11/18at 20:11; Start 06/11/18 at 19:30; Stop 06/11/18 at 19:31; Status DC Albuterol Sulfate (Ventolin Neb Soln) 2.5 mg PRN Q6HRS PRN INH SHORTNESS OF BREATH Last administered on 06/12/18 08:37; Start 06/11/18 at 20:45 Atorvastatin Calcium (Lipitor) 20 mg DAILY PO Last administered on 06/19/18 08:17; Start 06/12/18 at 09:00 Calcium Carbonate/ Glycine (Oscal) 500 mg DAILY PO Last administered on 06/19/18 08:18; Start 06/12/18 at 09:00 Furosemide (Lasix) 40 mg DAILY PO Last administered on 06/19/18 08:17; Start 06/12/18 at 09:00 Acetaminophen/ Hydrocodone Bitart (Lortab 5/325) 1 tab PRN Q6HRS PRN PO PAIN Last administered on 06/17/18 13:21; Start 06/11/18 at 20:45 Losartan Potassium (Cozaar) 50 mg DAILY PO Last administered on 06/19/18 08:17; Start 06/12/18 at 09:00 Vitamin D (Vitamin D3) 2,000 unit DAILY PO Last administered on 06/19/18 08:16; Start 06/12/18 at 09:00 Diltiazem HCl (Cardizem 24hr Cd) 240 mg BID PO Last administered on 06/19/18 23:42; Start 06/11/18 at 21:00 Non-Formulary Medication (Everolimus (Afinitor)) 10 mg DAILY PO ; Start 06/12/18 at 09:00; Stop 06/12/18 at 09:00; Status DC Non-Formulary Medication (Exemestane (Aromasin)) 25 mg DAILY PO ; Start 06/12/18 at 09:00; Stop 06/12/18 at 09:00; Status DC Labetalol HCl (Trandate) 200 mg BID PO Last administered on 06/19/18 21:25; Start 06/11/18 at 21:00 Non-Formulary Medication (Metformin Hcl ) 1,000 mg BIDWMEALS PO ; Start 06/12/18 at 08:00; Status UNV Montelukast Sodium (Singulair) 10 mg QHS PO Last administered on 06/19/18 21:25; Start 06/11/18 at 21:00 Naproxen (Naprosyn) 500 mg BID PO Last administered on 06/18/18at 22:09; Start 06/11/18 at 21:00 Insulin Human Lispro (HumaLOG) 0-7 UNITS TIDWMEALS SQ Last administered on 06/19/18at 12:22; Start 06/12/18 at 08:00 Dextrose (Dextrose 50%-Water Syringe) 12.5 gm PRN Q15MIN PRN IV SEE COMMENTS; Start 06/11/18 at 20:45 Insulin Glargine (Lantus) 7 units QHS SQ Last administered on 06/16/18at 20:51; Start 06/11/18 at 21:45; Stop 06/17/18 at 09:53; Status DC Loperamide HCl (Imodium) 2 mg PRN Q15MIN PRN PO DIARRHEA (1st Choice); Start 06/12/18 at 08:45 Diphenoxylate HCl/ Atropine (Lomotil) 1 tab PRN QID PRN PO DIARRHEA (2nd Choice) Last administered on 06/12/18at 10:16; Start 06/12/18 at 08:45 Dronabinol (Marinol) 5 mg BIDACLD PO Last administered on 06/13/18 17:12; Start 06/12/18 at 11:30; Stop 06/14/18 at 12:20; Status DC Albumin Human 500 ml @ 125 mls/hr 1X ONCE IV Last administered on 06/12/18at 15:58; Start 06/12/18 at 09:30; Stop 06/12/18 at 13:29; Status DC Pantoprazole Sodium (Protonix) 40 mg DAILYAC PO Last administered on 06/13/18 07:30; Start 06/12/18 at 11:30; Stop 06/13/18 at 11:24; Status DC Zolpidem Tartrate (Ambien) 5 mg PRN QHS PRN PO INSOMNIA; Start 06/12/18 at 11:30 Mirtazapine (Remeron) 7.5 mg QHS PO Last administered on 06/19/18 21:25; Start 06/12/18 at 21:00 Mesalamine (Delzicol) 800 mg BID PO Last administered on 5/1/19at 21:24; Start 06/12/18 at 15:00 Albuterol Sulfate (Ventolin Neb Soln) 2.5 mg RTQID NEB Last administered on 06/20/18at 07:05; Start 06/12/18 at 16:00 Budesonide (Pulmicort) 0.5 mg RTBID NEB Last administered on 06/20/18at 07:05; Start 06/12/18 at 20:00 Ondansetron HCl (Zofran) 4 mg STK-MED ONCE .ROUTE ; Start 06/14/18 at 11:10; Stop 06/14/18 at 11:11; Status DC Propofol 20 ml @ As Directed STK-MED ONCE IV ; Start 06/14/18 at 11:10; Stop 06/14/18 at 11:11; Status DC Lidocaine HCl (Lidocaine Pf 2% Vial) 5 ml STK-MED ONCE .ROUTE ; Start 06/14/18 at 11:10; Stop 06/14/18 at 11:11; Status DC Sevoflurane (Ultane) 60 ml STK-MED ONCE IH ; Start 06/14/18 at 11:10; Stop 06/14/18 at 11:11; Status DC Fentanyl Citrate (Fentanyl 2ml Vial) 100 mcg STK-MED ONCE .ROUTE ; Start 06/14/18 at 11:10; Stop 06/14/18 at 11:11; Status DC Succinylcholine Chloride (Anectine) 200 mg STK-MED ONCE .ROUTE ; Start 06/14/18 at 11:10; Stop 06/14/18 at 11:11; Status DC Dexamethasone Sodium Phosphate (Decadron) 4 mg STK-MED ONCE .ROUTE ; Start 06/14/18 at 11:10; Stop 06/14/18 at 11:11; Status DC Glycopyrrolate (Robinul) 1 mg STK-MED ONCE .ROUTE ; Start 06/14/18 at 11:11; Stop 06/14/18 at 11:12; Status DC Neostigmine Methylsulfate (Neostigmine Methylsulfate) 5 mg STK-MED ONCE .ROUTE ; Start 06/14/18 at 11:11; Stop 06/14/18 at 11:12; Status DC Rocuronium [place] (Zemuron) 50 mg STK-MED ONCE .ROUTE ; Start 06/14/18 at 11:11; Stop 06/14/18 at 11:12; Status DC Dronabinol (Marinol) 2.5 mg BIDACLD PO ; Start 06/14/18 at 16:30; Stop 06/14/18 at 16:35; Status DC Dronabinol (Marinol) 2.5 mg BIDACLD PO Last administered on 06/19/18at 12:16; Start 06/16/18 at 11:30; Stop 06/19/18 at 14:53; Status DC Amino Acids/ Glycerin/ Electrolytes 1,000 ml @ 80 mls/hr [id number] IV Last administered on 06/17/18at 23:05; Start 06/16/18 at 11:00; Stop 06/18/18 at 10:3 3; Status DC Cefazolin Sodium 3 gm/Dextrose 100 ml @ 200 mls/hr 1X PREOP PRN IV protocol; Start 06/17/18 at 06:00; Stop 06/17/18 at 15:00; Status Cancel Insulin Glargine (Lantus) 14 units QHS SQ Last administered on 06/17/18at 21:16; Start 06/17/18 at 21:00; Stop 06/18/18 at 12:14; Status DC Insulin Human Lispro (HumaLOG) 5 units TIDWMEALS SQ Last administered on 06/18/18at 09:18; Start 06/17/18 at 12:00; Stop 06/18/18 at 10:34; Status DC Insulin Human Lispro (HumaLOG) 10 units 1X ONCE SQ ; Start 06/17/18 at 10:00; Stop 06/17/18 at 10:01; Status DC Cefazolin Sodium 50 ml @ 100 mls/hr 1X ONCE IV Last administered on 06/17/18at 11:59; Start 06/17/18 at 12:15; Stop 06/17/18 at 12:49; Status DC Bupivacaine HCl (Sensorcaine Mpf 0.5%) 30 ml STK-MED ONCE INJ Last administered on 06/17/18at 12:11; Start 06/17/18 at 12:11; Stop 06/17/18 at 12:49; Status DC Bupivacaine HCl/ Epinephrine Bitart (Sensorcain-Mpf Epi 0.5%-1:[id number]) 30 ml STK-MED ONCE INJ Last administered on 06/17/18at 12:44; Start 06/17/18 at 12:44; Stop 06/17/18 at 12:49; Status DC Insulin Human Lispro (HumaLOG VIAL) 6 unit 1X ONCE SQ Last administered on 06/17/18at 13:42; Start 06/17/18 at 13:45; Stop 06/17/18 at 13:46; Status DC Ringer's Solution 1,040 ml @ 1,040 mls/hr 1X ONCE IV ; Start 06/17/18 at 14:45; Stop 06/17/18 at 15:44; Status DC Simethicone (Gas-X) 80 mg PRN AFTMEALHC PRN PO GAS / BLOATING Last administered on 06/19/18at 08:41; Start 06/17/18 at 15:00 Insulin Human Lispro (HumaLOG) 11 units TIDWMEALS SQ ; Start 06/18/18 at 12:00; Stop 06/18/18 at 14:57; Status DC Insulin Glargine (Lantus) 22 units QHS SQ Last administered on 06/19/18at 21:33; Start 06/18/18 at 21:00 Insulin Human Lispro (HumaLOG) 13 units TIDWMEALS SQ Last administered on 06/19/18at 17:11; Start 06/18/18 at 17:00 Dronabinol (Marinol) 5 mg BIDACLD PO Last administered on 06/19/18at 17:00; Start 06/19/18 at 16:30 Albumin Human 50 ml @ 50 mls/hr 1X ONCE IV Last administered on 06/19/18at 15:56; Start 06/19/18 at 15:00; Stop 06/19/18 at 15:59; Status DC Furosemide (Lasix) 40 mg 1X ONCE IVP Last administered on 06/19/18at 18:35; Start 06/19/18 at 18:00; Stop 06/19/18 at 18:01; Status DC Active Scripts Active Reported Mag-Oxide (Magnesium Oxide) 400 Mg Tablet Tradjenta (Linagliptin) 5 Mg Tablet Tradjenta (Linagliptin) 5 Mg Tablet Lantus Solostar (Insulin Glargine,Hum.rec.anlog) 100 Unit/1 Ml Insuln.pen Diltiazem 24Hr Cd (Diltiazem HCl) 240 Mg Cap.er.24h Losartan Potassium 50 Mg Tablet Metformin Hcl Er (Metformin Hcl) 500 Mg Tab.er.24h Klor-Con 10 (Potassium Chloride) 10 Meq Tablet.er Atorvastatin Calcium 20 Mg Tablet Furosemide 40 Mg Tablet Mirtazapine 30 Mg Tablet Afinitor (Everolimus) 2.5 Mg Tablet Afinitor (Everolimus) 10 Mg Tablet 10 Mg PO DAILY Aromasin (Exemestane) 25 Mg Tablet 25 Mg PO DAILY Xgeva (Denosumab) 120 Mg/1.7 Ml Vial 120 Mg SQ MONTHLY Aleve (Naproxen Sodium) 220 Mg Tablet 440 Mg PO BID Vitamin D3 (Cholecalciferol (Vitamin D3)) 2,000 Unit Tablet 2,000 Unit PO DAILY Calcium (Calcium Carbonate) 500 Mg Tablet 500 Mg PO DAILY Cardizem Cd (Diltiazem Hcl) 240 Mg Cap.er.24h 1 Cap PO BID Hydrocodone-Apap 5-325 (Hydrocodone Bit/Acetaminophen) 1 Each Tablet 1 Tab PO PRN Q6HRS PRN Metformin Hcl 1,000 Mg Tablet 1,000 Mg PO BIDWMEALS Proair Hfa Inhaler (Albuterol Sulfate) 8.5 Gm Hfa.aer.ad 1 Puff INH PRN Q6HRS PRN Losartan Potassium 50 Mg Tablet 50 Mg PO DAILY Montelukast Sodium Tablet (Montelukast Sodium) 10 Mg Tablet 10 Mg PO HS Labetalol Hcl 200 Mg Tablet 200 Mg PO BID Vitals/I & O Vital Sign - Last 24 Hours 06/19/18 06/19/18 06/19/18 06/19/18 11:00 11:45 15:00 15:57 Temp 97.7 98.8 97.7 98.8 Pulse 86 86 Resp 18 18 B/P (MAP) 105/44 (64) 96/40 (58) Pulse Ox 94 96 93 95 O2 Delivery Room Air Room Air Room Air Room Air 06/19/18 06/19/18 06/19/18 06/19/18 19:00 20:00 20:32 21:25 Temp 98.3 98.3 Pulse 90 89 Resp 16 B/P (MAP) 119/53 (75) 112/56 Pulse Ox 96 95 O2 Delivery Room Air Room Air Room Air 06/19/18 06/19/18 06/20/18 06/20/18 23:00 23:42 03:00 07:00 Temp 98.1 98.2 98.1 98.1 98.2 98.1 Pulse 89 89 94 91 Resp 22 16 20 B/P (MAP) 117/58 (77) 117/58 113/59 (77) 124/57 (79) Pulse Ox 95 94 90 O2 Delivery Room Air Room Air Room Air 06/20/18 07:06 Pulse Ox 95 O2 Delivery Room Air Intake and Output 06/19/18 06/19/18 06/20/18 14:59 22:59 06:59 Intake Total 0 ml Output Total 250 ml 300 ml Balance -250 ml -300 ml Nutrition Consultation Dietary Evaluation: Recommendations by RD: Increase Calorie Intake, Protein supplementation, PPN/TPN Comments: REC resume ADA diet with glucerna supplements. PPN < 10 days Expected Outcomes/Goals: to meet > 75% est nutr needs- met, goal ongoing Malnutrition Findings: Body Fat Depletion (Non Severe: Mild Depletion Weight Status: Underweight FRANKIE MUNROE MD June 20, 2018 09:02
[2018-06-20] MEDS: ATORVASTATIN CALCIUM 20 MG TABLET PO SCH (09:15)
[2018-06-20] MEDS: CALCIUM CARBONATE 500 MG TABLET PO SCH (09:15)
[2018-06-20] MEDS: MESALAMINE 400 MG CAP.DRTAB. PO SCH ×2 (09:15→21:00)
[2018-06-20] MEDS: FUROSEMIDE 40 MG TABLET. PO SCH (09:16)
[2018-06-20] MEDS: LABETALOL HCL 200 MG TABLET PO SCH ×2 (09:16→21:04)
[2018-06-20] MEDS: LOSARTAN POTASSIUM 50 MG TABLET. PO SCH (09:16)
[2018-06-20] MEDS: CHOLECALCIFEROL (VITAMIN D3) 1,000 UNIT TABLET PO SCH (09:16)
--- NOTE | 2018-06-20 10:03 | PDOC ---
PROGRESS NOTES Chief Complaint Chief Complaint Assessment: Acute hypoxic respiratory failure improved metastatic breast cancer to bone pleural effusion, poss. malignant or transudative Dm1 chronic HTN, hypotension OA Osteoporosis HLD Asthma GERD Anorexia Depressions SOB, abdominal distention severe protein-caloric malnutrition History of Present Illness History of Present Illness Patient seen and examined Discussed with procurement internship disposition pending Vitals Vitals Vital Signs Date Time Temp Pulse Resp B/P (MAP) Pulse Ox O2 Delivery O2 Flow Rate FiO2 06/20/18 09:16 91 124/57 06/20/18 08:00 Room Air 06/20/18 07:06 95 06/20/18 07:00 98.1 20 98.1 06/19/18 07:00 2.0 Physical Exam General: Alert, Oriented X3, Cooperative, mild distress Heart: Normal S1, Normal S2 Lungs: Crackles, Other (No rales or rhonchi) Abdomen: Normal bowel sounds, Soft, No tenderness, No masses, Other (distended) Extremities: No cyanosis, No edema, Normal pulses, No tenderness/swelling Skin: No rashes, No breakdown, No significant lesion Labs LABS ALIX NORTON MD,FRANKIE RAIN MD, MD ORDERED: ANAER/AEROB/GS Procedure Result ANAEROBIC-AEROBIC CULTURE Final Final report ANAEROBIC RES 1 Final Comment No anaerobic growth in 72 hours. AEROBIC CULT Final Final report AEROBIC RES 1 Final Comment No growth in 56 - 72 hours. GRAM STAIN Final Final report GRAM STAIN RES 1 Final Comment No white blood cells seen. GRAM STAIN RES 2 Final No organisms seen Performed at: DA - [facility] [place] [address] [facility] [address] [facility] [address], [place], [place] [id number] Bankruptcy Judge: YAMILETH Calero MD, Phone: [phone] ---- Laboratory Tests Test 06/19/18 11:35 06/19/18 16:33 06/19/18 20:53 06/20/18 02:45 Glucose (Fingerstick) 167 mg/dL (70-99) 138 mg/dL (70-99) 150 mg/dL (70-99) 163 mg/dL (70-99) Test 06/20/18 05:30 06/20/18 07:48 White Blood Count 4.5 x10^3/uL (4.0-11.0) Red Blood Count 3.22 x10^6/uL (3.50-5.40) Hemoglobin 8.0 g/dL (12.0-15.5) Hematocrit 25.3 % (36.0-47.0) Mean Corpuscular Volume 78 fL (79-100) Mean Corpuscular Hemoglobin 25 pg (25-35) Mean Corpuscular Hemoglobin Concent 32 g/dL (31-37) Red Cell Distribution Width 19.6 % (11.5-14.5) Platelet Count 230 x10^3/uL (140-400) Neutrophils (%) (Auto) 75 % (31-73) Lymphocytes (%) (Auto) 10 % (24-48) Monocytes (%) (Auto) 12 % (0-9) Eosinophils (%) (Auto) 2 % (0-3) Basophils (%) (Auto) 0 % (0-3) Neutrophils # (Auto) 3.3 x10^3uL (1.8-7.7) Lymphocytes # (Auto) 0.5 x10^3/uL (1.0-4.8) Monocytes # (Auto) 0.5 x10^3/uL (0.0-1.1) Eosinophils # (Auto) 0.1 x10^3/uL (0.0-0.7) Basophils # (Auto) 0.0 x10^3/uL (0.0-0.2) Sodium Level 141 mmol/L (136-145) Potassium Level 3.9 mmol/L (3.5-5.1) Chloride Level 109 mmol/L (98-107) Carbon Dioxide Level 26 mmol/L (21-32) Anion Gap 6 (6-14) Blood Urea Nitrogen 42 mg/dL (7-20) Creatinine 1.0 mg/dL (0.6-1.0) Estimated GFR (Cockcroft-Gault) 65.2 Glucose Level 158 mg/dL (70-99) Calcium Level 8.9 mg/dL (8.5-10.1) Glucose (Fingerstick) 139 mg/dL (70-99) Assessment and Plan Assessmemt and Plan Problems Medical Problems: (1) Ascites Status: Acute (2) Cholelithiasis Status: Acute (3) Pleural effusion Status: Acute (4) Shortness of breath Status: Acute Procedure: Ultrasound guided paracentesis Clinical Indication: 78-year-old with abdominal ascites Sedation: Local anesthesia only Antibiotics: None Fluoro Time: None Contrast: Not applicable Sterility: The procedure was performed in its entirety using appropriate elements of sterile technique. Consent: The procedure was explained in its entirety to the patient or the patients designated printing supplies sales representative by a member of the treatment team, including a discussion of the risks, benefits and commonly accepted alternatives to the procedure, as well as the expected consequences of no therapy whatsoever. Discussion of the risks included, but was not limited to, those that are most frequent and those that are rare but possibly severe or life-threatening, as well as the possibility of unforeseen complications. Technique and Findings: Following informed consent, the patient was prepped and draped in the usual sterile fashion. Ultrasound interrogation of the abdomen revealed abdominal ascites. A hard copy ultrasound image was recorded. 1% Lidocaine was used to achieve local anesthesia over the area of interest, and a 6 Norwegian [id number] catheter was advanced into the peritoneal cavity under ultrasound guidance. 255 cc of thin yellow ascites was then withdrawn. The catheter was removed and hemostasis was achieved with manual compression. Complications: No immediate Impression: 1. Ultrasound-guided paracentesis as described Comment Review of Relevant I have reviewed the following items patrica (where applicable) has been applied. Labs Laboratory Tests Test 06/18/18 12:09 06/18/18 16:13 06/18/18 19:26 06/19/18 07:15 Glucose (Fingerstick) 396 mg/dL (70-99) 303 mg/dL (70-99) 258 mg/dL (70-99) 199 mg/dL (70-99) Test 06/19/18 08:50 06/19/18 11:35 06/19/18 16:33 06/19/18 20:53 White Blood Count 4.3 x10^3/uL (4.0-11.0) Red Blood Count 3.58 x10^6/uL (3.50-5.40) Hemoglobin 9.0 g/dL (12.0-15.5) Hematocrit 28.1 % (36.0-47.0) Mean Corpuscular Volume 78 fL (79-100) Mean Corpuscular Hemoglobin 25 pg (25-35) Mean Corpuscular Hemoglobin Concent 32 g/dL (31-37) Red Cell Distribution Width 19.3 % (11.5-14.5) Platelet Count 259 x10^3/uL (140-400) Neutrophils (%) (Auto) 84 % (31-73) Lymphocytes (%) (Auto) 9 % (24-48) Monocytes (%) (Auto) 5 % (0-9) Eosinophils (%) (Auto) 2 % (0-3) Basophils (%) (Auto) 0 % (0-3) Neutrophils # (Auto) 3.6 x10^3uL (1.8-7.7) Lymphocytes # (Auto) 0.4 x10^3/uL (1.0-4.8) Monocytes # (Auto) 0.2 x10^3/uL (0.0-1.1) Eosinophils # (Auto) 0.1 x10^3/uL (0.0-0.7) Basophils # (Auto) 0.0 x10^3/uL (0.0-0.2) Sodium Level 144 mmol/L (136-145) Potassium Level 3.8 mmol/L (3.5-5.1) Chloride Level 109 mmol/L (98-107) Carbon Dioxide Level 24 mmol/L (21-32) Anion Gap 11 (6-14) Blood Urea Nitrogen 43 mg/dL (7-20) Creatinine 1.0 mg/dL (0.6-1.0) Estimated GFR (Cockcroft-Gault) 65.2 Glucose Level 203 mg/dL (70-99) Calcium Level 9.4 mg/dL (8.5-10.1) Glucose (Fingerstick) 167 mg/dL (70-99) 138 mg/dL (70-99) 150 mg/dL (70-99) Test 06/20/18 02:45 06/20/18 05:30 06/20/18 07:48 Glucose (Fingerstick) 163 mg/dL (70-99) 139 mg/dL (70-99) White Blood Count 4.5 x10^3/uL (4.0-11.0) Red Blood Count 3.22 x10^6/uL (3.50-5.40) Hemoglobin 8.0 g/dL (12.0-15.5) Hematocrit 25.3 % (36.0-47.0) Mean Corpuscular Volume 78 fL (79-100) Mean Corpuscular Hemoglobin 25 pg (25-35) Mean Corpuscular Hemoglobin Concent 32 g/dL (31-37) Red Cell Distribution Width 19.6 % (11.5-14.5) Platelet Count 230 x10^3/uL (140-400) Neutrophils (%) (Auto) 75 % (31-73) Lymphocytes (%) (Auto) 10 % (24-48) Monocytes (%) (Auto) 12 % (0-9) Eosinophils (%) (Auto) 2 % (0-3) Basophils (%) (Auto) 0 % (0-3) Neutrophils # (Auto) 3.3 x10^3uL (1.8-7.7) Lymphocytes # (Auto) 0.5 x10^3/uL (1.0-4.8) Monocytes # (Auto) 0.5 x10^3/uL (0.0-1.1) Eosinophils # (Auto) 0.1 x10^3/uL (0.0-0.7) Basophils # (Auto) 0.0 x10^3/uL (0.0-0.2) Sodium Level 141 mmol/L (136-145) Potassium Level 3.9 mmol/L (3.5-5.1) Chloride Level 109 mmol/L (98-107) Carbon Dioxide Level 26 mmol/L (21-32) Anion Gap 6 (6-14) Blood Urea Nitrogen 42 mg/dL (7-20) Creatinine 1.0 mg/dL (0.6-1.0) Estimated GFR (Cockcroft-Gault) 65.2 Glucose Level 158 mg/dL (70-99) Calcium Level 8.9 mg/dL (8.5-10.1) Laboratory Tests Test 06/19/18 11:35 06/19/18 16:33 06/19/18 20:53 06/20/18 02:45 Glucose (Fingerstick) 167 mg/dL (70-99) 138 mg/dL (70-99) 150 mg/dL (70-99) 163 mg/dL (70-99) Test 06/20/18 05:30 06/20/18 07:48 White Blood Count 4.5 x10^3/uL (4.0-11.0) Red Blood Count 3.22 x10^6/uL (3.50-5.40) Hemoglobin 8.0 g/dL (12.0-15.5) Hematocrit 25.3 % (36.0-47.0) Mean Corpuscular Volume 78 fL (79-100) Mean Corpuscular Hemoglobin 25 pg (25-35) Mean Corpuscular Hemoglobin Concent 32 g/dL (31-37) Red Cell Distribution Width 19.6 % (11.5-14.5) Platelet Count 230 x10^3/uL (140-400) Neutrophils (%) (Auto) 75 % (31-73) Lymphocytes (%) (Auto) 10 % (24-48) Monocytes (%) (Auto) 12 % (0-9) Eosinophils (%) (Auto) 2 % (0-3) Basophils (%) (Auto) 0 % (0-3) Neutrophils # (Auto) 3.3 x10^3uL (1.8-7.7) Lymphocytes # (Auto) 0.5 x10^3/uL (1.0-4.8) Monocytes # (Auto) 0.5 x10^3/uL (0.0-1.1) Eosinophils # (Auto) 0.1 x10^3/uL (0.0-0.7) Basophils # (Auto) 0.0 x10^3/uL (0.0-0.2) Sodium Level 141 mmol/L (136-145) Potassium Level 3.9 mmol/L (3.5-5.1) Chloride Level 109 mmol/L (98-107) Carbon Dioxide Level 26 mmol/L (21-32) Anion Gap 6 (6-14) Blood Urea Nitrogen 42 mg/dL (7-20) Creatinine 1.0 mg/dL (0.6-1.0) Estimated GFR (Cockcroft-Gault) 65.2 Glucose Level 158 mg/dL (70-99) Calcium Level 8.9 mg/dL (8.5-10.1) Glucose (Fingerstick) 139 mg/dL (70-99) Microbiology 06/11/18 Blood Culture - Final, Complete NO GROWTH AFTER 5 DAYS 06/12/18 Anaerobic/Aerobic Culture - Final, Complete 06/12/18 Anaerobic Culture Result 1 (KEISHA) - Final, Complete 06/12/18 Aerobic Culture - Final, Complete 06/12/18 Aerobic Culture Result 1 (KEISHA) - Final, Complete 06/12/18 Gram Stain - Final, Complete 06/12/18 Gram Stain Result 1 (KEISHA) - Final, Complete 06/12/18 Gram Stain Result 2 (KEISHA) - Final, Complete 06/11/18 Urine Culture - Final, Complete 06/11/18 Urine Culture Result 1 (KEISHA) - Final, Complete 06/11/18 Antimicrobic Susceptibility - Final, Complete Medications Current Medications Albuterol/ Ipratropium (Duoneb) 3 ml 1X ONCE NEB Last administered on 06/11/18at 17:19; Start 06/11/18 at 17:15; Stop 06/11/18 at 17:16; Status DC Ondansetron HCl (Zofran) 4 mg PRN Q8HRS PRN IV NAUSEA/VOMITING; Start 06/11/18 at 19:15; Stop 06/12/18 at 19:14; Status DC Morphine Sulfate (Morphine Sulfate) 4 mg PRN Q2HR PRN IV PAIN; Start 06/11/18 at 19:15; Stop 06/12/18 at 19:14; Status DC Acetaminophen (Tylenol) 650 mg PRN Q4HRS PRN PO FEVER; Start 06/11/18 at 19:15; Stop 06/12/18 at 19:14; Status DC Dextrose (Dextrose 50%-Water Syringe) 12.5 gm PRN Q15MIN PRN IV SEE COMMENTS; Start 06/11/18 at 19:15; Status Cancel Insulin Human Regular (HumuLIN R VIAL) 5 unit 1X ONCE IV Last administered on 06/11/18at 20:11; Start 06/11/18 at 19:30; Stop 06/11/18 at 19:31; Status DC Albuterol Sulfate (Ventolin Neb Soln) 2.5 mg PRN Q6HRS PRN INH SHORTNESS OF BREATH Last administered on 06/12/18at 08:37; Start 06/11/18 at 20:45 Atorvastatin Calcium (Lipitor) 20 mg DAILY PO Last administered on 06/20/18 09:15; Start 06/12/18 at 09:00 Calcium Carbonate/ Glycine (Oscal) 500 mg DAILY PO Last administered on 06/20/18 09:15; Start 06/12/18 at 09:00 Furosemide (Lasix) 40 mg DAILY PO Last administered on 06/20/18 09:16; Start 06/12/18 at 09:00 Acetaminophen/ Hydrocodone Bitart (Lortab 5/325) 1 tab PRN Q6HRS PRN PO PAIN Last administered on 06/17/18 13:21; Start 06/11/18 at 20:45 Losartan Potassium (Cozaar) 50 mg DAILY PO Last administered on 06/20/18 09:16; Start 06/12/18 at 09:00 Vitamin D (Vitamin D3) 2,000 unit DAILY PO Last administered on 06/20/18 09:16; Start 06/12/18 at 09:00 Diltiazem HCl (Cardizem 24hr Cd) 240 mg BID PO Last administered on 06/20/18at 0 9:16; Start 06/11/18 at 21:00 Non-Formulary Medication (Everolimus (Afinitor)) 10 mg DAILY PO ; Start 06/12/18 at 09:00; Stop 06/12/18 at 09:00; Status DC Non-Formulary Medication (Exemestane (Aromasin)) 25 mg DAILY PO ; Start 06/12/18 at 09:00; Stop 06/12/18 at 09:00; Status DC Labetalol HCl (Trandate) 200 mg BID PO Last administered on 06/20/18 09:16; Start 06/11/18 at 21:00 Non-Formulary Medication (Metformin Hcl ) 1,000 mg BIDWMEALS PO ; Start 06/12/18 at 08:00; Status UNV Montelukast Sodium (Singulair) 10 mg QHS PO Last administered on 06/19/18 21:25; Start 06/11/18 at 21:00 Naproxen (Naprosyn) 500 mg BID PO Last administered on 06/18/18 22:09; Start 06/11/18 at 21:00 Insulin Human Lispro (HumaLOG) 0-7 UNITS TIDWMEALS SQ Last administered on 06/19 12:22; Start 06/12/18 at 08:00 Dextrose (Dextrose 50%-Water Syringe) 12.5 gm PRN Q15MIN PRN IV SEE COMMENTS; Start 06/11/18 at 20:45 Insulin Glargine (Lantus) 7 units QHS SQ Last administered on 06/16/18at 20:51; Start 06/11/18 at 21:45; Stop 06/17/18 at 09:53; Status DC Loperamide HCl (Imodium) 2 mg PRN Q15MIN PRN PO DIARRHEA (1st Choice); Start 06/12/18 at 08:45 Diphenoxylate HCl/ Atropine (Lomotil) 1 tab PRN QID PRN PO DIARRHEA (2nd Choice) Last administered on 06/12/18 10:16; Start 06/12/18 at 08:45 Dronabinol (Marinol) 5 mg BIDACLD PO Last administered on 06/13/18 17:12; Start 06/12/18 at 11:30; Stop 06/14/18 at 12:20; Status DC Albumin Human 500 ml @ 125 mls/hr 1X ONCE IV Last administered on 06/12/18 15:58; Start 06/12/18 at 09:30; Stop 06/12/18 at 13:29; Status DC Pantoprazole Sodium (Protonix) 40 mg DAILYAC PO Last administered on 06/13/18at 07:30; Start 06/12/18 at 11:30; Stop 06/13/18 at 11:24; Status DC Zolpidem Tartrate (Ambien) 5 mg PRN QHS PRN PO INSOMNIA; Start 06/12/18 at 11:30 Mirtazapine (Remeron) 7.5 mg QHS PO Last administered on 06/19/18at 21:25; Start 06/12/18 at 21:00 Mesalamine (Delzicol) 800 mg BID PO Last administered on 06/20/18at 09:15; Start 06/12/18 at 15:00 Albuterol Sulfate (Ventolin Neb Soln) 2.5 mg RTQID NEB Last administered on 06/20/18at 07:05; Start 06/12/18 at 16:00 Budesonide (Pulmicort) 0.5 mg RTBID NEB Last administered on 06/20/18at 07:05; Start 06/12/18 at 20:00 Ondansetron HCl (Zofran) 4 mg STK-MED ONCE .ROUTE ; Start 06/14/18 at 11:10; Stop 06/14/18 at 11:11; Status DC Propofol 20 ml @ As Directed STK-MED ONCE IV ; Start 06/14/18 at 11:10; Stop 06/14/18 at 11:11; Status DC Lidocaine HCl (Lidocaine Pf 2% Vial) 5 ml STK-MED ONCE .ROUTE ; Start 06/14/18 at 11:10; Stop 06/14/18 at 11:11; Status DC Sevoflurane (Ultane) 60 ml STK-MED ONCE IH ; Start 06/14/18 at 11:10; Stop 06/14/18 at 11:11; Status DC Fentanyl Citrate (Fentanyl 2ml Vial) 100 mcg STK-MED ONCE .ROUTE ; Start 06/14/18 at 11:10; Stop 06/14/18 at 11:11; Status DC Succinylcholine Chloride (Anectine) 200 mg STK-MED ONCE .ROUTE ; Start 06/14/18 at 11:10; Stop 06/14/18 at 11:11; Status DC Dexamethasone Sodium Phosphate (Decadron) 4 mg STK-MED ONCE .ROUTE ; Start 06/14/18 at 11:10; Stop 06/14/18 at 11:11; Status DC Glycopyrrolate (Robinul) 1 mg STK-MED ONCE .ROUTE ; Start 06/14/18 at 11:11; Stop 06/14/18 at 11:12; Status DC Neostigmine Methylsulfate (Neostigmine Methylsulfate) 5 mg STK-MED ONCE .ROUTE ; Start 06/14/18 at 11:11; Stop 06/14/18 at 11:12; Status DC Rocuronium [place] (Zemuron) 50 mg STK-MED ONCE .ROUTE ; Start 06/14/18 at 11:11; Stop 06/14/18 at 11:12; Status DC Dronabinol (Marinol) 2.5 mg BIDACLD PO ; Start 06/14/18 at 16:30; Stop 06/14/18 at 16:35; Status DC Dronabinol (Marinol) 2.5 mg BIDACLD PO Last administered on 06/19/18at 12:16; Start 06/16/18 at 11:30; Stop 06/19/18 at 14:53; Status DC Amino Acids/ Glycerin/ Electrolytes 1,000 ml @ 80 mls/hr [id number] IV Last administered on 06/17/18at 23:05; Start 06/16/18 at 11:00; Stop 06/18/18 at 10:33; Status DC Cefazolin Sodium 3 gm/Dextrose 100 ml @ 200 mls/hr 1X PREOP PRN IV protocol; Start 06/17/18 at 06:00; Stop 06/17/18 at 15:00; Status Cancel Insulin Glargine (Lantus) 14 units QHS SQ Last administered on 06/17/18at 21:16; Start 06/17/18 at 21:00; Stop 06/18/18 at 12:14; Status DC Insulin Human Lispro (HumaLOG) 5 units TIDWMEALS SQ Last administered on 06/18/18at 09:18; Start 06/17/18 at 12:00; Stop 06/18/18 at 10:34; Status DC Insulin Human Lispro (HumaLOG) 10 units 1X ONCE SQ ; Start 06/17/18 at 10:00; Stop 06/17/18 at 10:01; Status DC Cefazolin Sodium 50 ml @ 100 mls/hr 1X ONCE IV Last administered on 06/17/18at 11:59; Start 06/17/18 at 12:15; Stop 06/17/18 at 12:49; Status DC Bupivacaine HCl (Sensorcaine Mpf 0.5%) 30 ml STK-MED ONCE INJ Last administered on 06/17/18at 12:11; Start 06/17/18 at 12:11; Stop 06/17/18 at 12:49; Status DC Bupivacaine HCl/ Epinephrine Bitart (Sensorcain-Mpf Epi 0.5%-[id number]) 30 ml STK-MED ONCE INJ Last administered on 06/17/18at 12:44; Start 06/17/18 at 12:44; Stop 06/17/18 at 12:49; Status DC Insulin Human Lispro (HumaLOG VIAL) 6 unit 1X ONCE SQ Last administered on 06/17/18at 13:42; Start 06/17/18 at 13:45; Stop 06/17/18 at 13:46; Status DC Ringer's Solution 1,040 ml @ 1,040 mls/hr 1X ONCE IV ; Start 06/17/18 at 14:45; Stop 06/17/18 at 15:44; Status DC Simethicone (Gas-X) 80 mg PRN AFTMEALHC PRN PO GAS / BLOATING Last administered on 06/19/18at 08:41; Start 06/17/18 at 15:00 Insulin Human Lispro (HumaLOG) 11 units TIDWMEALS SQ ; Start 06/18/18 at 12:00; Stop 06/18/18 at 14:57; Status DC Insulin Glargine (Lantus) 22 units QHS SQ Last administered on 06/19/18at 21:33; Start 06/18/18 at 21:00 Insulin Human Lispro (HumaLOG) 13 units TIDWMEALS SQ Last administered on 06/20/18at 09:23; Start 06/18/18 at 17:00 Dronabinol (Marinol) 5 mg BIDACLD PO Last administered on 06/19/18at 17:00; Start 06/19/18 at 16:30 Albumin Human 50 ml @ 50 mls/hr 1X ONCE IV Last administered on 06/19/18at 15:56; Start 06/19/18 at 15:00; Stop 06/19/18 at 15:59; Status DC Furosemide (Lasix) 40 mg 1X ONCE IVP Last administered on 06/19/18at 18:35; Start 06/19/18 at 18:00; Stop 06/19/18 at 18:01; Status DC Active Scripts Active Reported Mag-Oxide (Magnesium Oxide) 400 Mg Tablet Tradjenta (Linagliptin) 5 Mg Tablet Tradjenta (Linagliptin) 5 Mg Tablet Lantus Solostar (Insulin Glargine,Hum.rec.anlog) 100 Unit/1 Ml Insuln.pen Diltiazem 24Hr Cd (Diltiazem HCl) 240 Mg Cap.er.24h Losartan Potassium 50 Mg Tablet Metformin Hcl Er (Metformin Hcl) 500 Mg Tab.er.24h Klor-Con 10 (Potassium Chloride) 10 Meq Tablet.er Atorvastatin Calcium 20 Mg Tablet Furosemide 40 Mg Tablet Mirtazapine 30 Mg Tablet Afinitor (Everolimus) 2.5 Mg Tablet Afinitor (Everolimus) 10 Mg Tablet 10 Mg PO DAILY Aromasin (Exemestane) 25 Mg Tablet 25 Mg PO DAILY Xgeva (Denosumab) 120 Mg/1.7 Ml Vial 120 Mg SQ MONTHLY Aleve (Naproxen Sodium) 220 Mg Tablet 440 Mg PO BID Vitamin D3 (Cholecalciferol (Vitamin D3)) 2,000 Unit Tablet 2,000 Unit PO DAILY Calcium (Calcium Carbonate) 500 Mg Tablet 500 Mg PO DAILY Cardizem Cd (Diltiazem Hcl) 240 Mg Cap.er.24h 1 Cap PO BID Hydrocodone-Apap 5-325 (Hydrocodone Bit/Acetaminophen) 1 Each Tablet 1 Tab PO PRN Q6HRS PRN Metformin Hcl 1,000 Mg Tablet 1,000 Mg PO BIDWMEALS Proair Hfa Inhaler (Albuterol Sulfate) 8.5 Gm Hfa.aer.ad 1 Puff INH PRN Q6HRS PRN Losartan Potassium 50 Mg Tablet 50 Mg PO DAILY Montelukast Sodium Tablet (Montelukast Sodium) 10 Mg Tablet 10 Mg PO HS Labetalol Hcl 200 Mg Tablet 200 Mg PO BID Vitals/I & O Vital Sign - Last 24 Hours 06/19/18 06/19/18 06/19/18 06/19/18 11:00 11:45 15:00 15:57 Temp 97.7 98.8 97.7 98.8 Pulse 86 86 Resp 18 18 B/P (MAP) 105/44 (64) 96/40 (58) Pulse Ox 94 96 93 95 O2 Delivery Room Air Room Air Room Air Room Air 06/19/18 06/19/18 06/19/18 06/19/18 19:00 20:00 20:32 21:25 Temp 98.3 98.3 Pulse 90 89 Resp 16 B/P (MAP) 119/53 (75) 112/56 Pulse Ox 96 95 O2 Delivery Room Air Room Air Room Air 06/19/18 06/19/18 06/20/18 06/20/18 23:00 23:42 03:00 07:00 Temp 98.1 98.2 98.1 98.1 98.2 98.1 Pulse 89 89 94 91 Resp 22 16 20 B/P (MAP) 117/58 (77) 117/58 113/59 (77) 124/57 (79) Pulse Ox 95 94 90 O2 Delivery Room Air Room Air Room Air 06/20/18 06/20/18 06/20/18 06/20/18 07:06 08:00 09:16 09:16 Pulse 91 91 B/P (MAP) 124/57 124/57 Pulse Ox 95 O2 Delivery Room Air Room Air 06/20/18 09:16 Pulse 91 B/P (MAP) 124/57 Intake and Output 06/19/18 06/19/18 06/20/18 14:59 22:59 06:59 Intake Total 0 ml Output Total 250 ml 300 ml Balance -250 ml -300 ml Nutrition Consultation Dietary Evaluation: Recommendations by RD: Increase Calorie Intake, Protein supplementation, PPN/TPN Comments: REC resume ADA diet with glucerna supplements. PPN < 10 days Expected Outcomes/Goals: to meet > 75% est nutr needs- met, goal ongoing Malnutrition Findings: Body Fat Depletion (Non Severe: Mild Depletion Weight Status: Underweight KOSTAS RODRIGUEZ MD June 20, 2018 10:03
[2018-06-20 11:00] VITALS: BP 115/45
[2018-06-20] MEDS: DRONABINOL 2.5 MG CAPSULE. PO SCH ×2 (11:42→16:30)
[2018-06-20 15:00] VITALS: BP 102/95
--- NOTE | 2018-06-20 15:00 | PDOC ---
PULMONARY PROGRESS NOTES Subjective PT LESS SOA Vitals Vital Signs Date Time Temp Pulse Resp B/P (MAP) Pulse Ox O2 Delivery O2 Flow Rate FiO2 06/20/18 11:24 95 Room Air 06/20/18 11:00 97.9 97 20 115/45 (68) 97.9 06/19/18 07:00 2.0 ROS: No Nausea, No Chest Pain, No Abdominal Pain, No Increase Cough Lungs: Crackles, Other (decrease rt side) Cardiovascular: S1, S2 Abdomen: Soft Neuro Exam: Alert Extremities: No Edema Skin: Warm Labs Laboratory Tests Test 06/18/18 16:13 06/18/18 19:26 06/19/18 07:15 06/19/18 08:50 Glucose (Fingerstick) 303 mg/dL (70-99) 258 mg/dL (70-99) 199 mg/dL (70-99) White Blood Count 4.3 x10^3/uL (4.0-11.0) Red Blood Count 3.58 x10^6/uL (3.50-5.40) Hemoglobin 9.0 g/dL (12.0-15.5) Hematocrit 28.1 % (36.0-47.0) Mean Corpuscular Volume 78 fL (79-100) Mean Corpuscular Hemoglobin 25 pg (25-35) Mean Corpuscular Hemoglobin Concent 32 g/dL (31-37) Red Cell Distribution Width 19.3 % (11.5-14.5) Platelet Count 259 x10^3/uL (140-400) Neutrophils (%) (Auto) 84 % (31-73) Lymphocytes (%) (Auto) 9 % (24-48) Monocytes (%) (Auto) 5 % (0-9) Eosinophils (%) (Auto) 2 % (0-3) Basophils (%) (Auto) 0 % (0-3) Neutrophils # (Auto) 3.6 x10^3uL (1.8-7.7) Lymphocytes # (Auto) 0.4 x10^3/uL (1.0-4.8) Monocytes # (Auto) 0.2 x10^3/uL (0.0-1.1) Eosinophils # (Auto) 0.1 x10^3/uL (0.0-0.7) Basophils # (Auto) 0.0 x10^3/uL (0.0-0.2) Sodium Level 144 mmol/L (136-145) Potassium Level 3.8 mmol/L (3.5-5.1) Chloride Level 109 mmol/L (98-107) Carbon Dioxide Level 24 mmol/L (21-32) Anion Gap 11 (6-14) Blood Urea Nitrogen 43 mg/dL (7-20) Creatinine 1.0 mg/dL (0.6-1.0) Estimated GFR (Cockcroft-Gault) 65.2 Glucose Level 203 mg/dL (70-99) Calcium Level 9.4 mg/dL (8.5-10.1) Test 06/19/18 11:35 06/19/18 16:33 06/19/18 20:53 06/20/18 02:45 Glucose (Fingerstick) 167 mg/dL (70-99) 138 mg/dL (70-99) 150 mg/dL (70-99) 163 mg/dL (70-99) Test 06/20/18 05:30 06/20/18 07:48 06/20/18 10:42 White Blood Count 4.5 x10^3/uL (4.0-11.0) Red Blood Count 3.22 x10^6/uL (3.50-5.40) Hemoglobin 8.0 g/dL (12.0-15.5) Hematocrit 25.3 % (36.0-47.0) Mean Corpuscular Volume 78 fL (79-100) Mean Corpuscular Hemoglobin 25 pg (25-35) Mean Corpuscular Hemoglobin Concent 32 g/dL (31-37) Red Cell Distribution Width 19.6 % (11.5-14.5) Platelet Count 230 x10^3/uL (140-400) Neutrophils (%) (Auto) 75 % (31-73) Lymphocytes (%) (Auto) 10 % (24-48) Monocytes (%) (Auto) 12 % (0-9) Eosinophils (%) (Auto) 2 % (0-3) Basophils (%) (Auto) 0 % (0-3) Neutrophils # (Auto) 3.3 x10^3uL (1.8-7.7) Lymphocytes # (Auto) 0.5 x10^3/uL (1.0-4.8) Monocytes # (Auto) 0.5 x10^3/uL (0.0-1.1) Eosinophils # (Auto) 0.1 x10^3/uL (0.0-0.7) Basophils # (Auto) 0.0 x10^3/uL (0.0-0.2) Sodium Level 141 mmol/L (136-145) Potassium Level 3.9 mmol/L (3.5-5.1) Chloride Level 109 mmol/L (98-107) Carbon Dioxide Level 26 mmol/L (21-32) Anion Gap 6 (6-14) Blood Urea Nitrogen 42 mg/dL (7-20) Creatinine 1.0 mg/dL (0.6-1.0) Estimated GFR (Cockcroft-Gault) 65.2 Glucose Level 158 mg/dL (70-99) Calcium Level 8.9 mg/dL (8.5-10.1) Glucose (Fingerstick) 139 mg/dL (70-99) 165 mg/dL (70-99) Laboratory Tests Test 06/19/18 16:33 06/19/18 20:53 06/20/18 02:45 06/20/18 05:30 Glucose (Fingerstick) 138 mg/dL (70-99) 150 mg/dL (70-99) 163 mg/dL (70-99) White Blood Count 4.5 x10^3/uL (4.0-11.0) Red Blood Count 3.22 x10^6/uL (3.50-5.40) Hemoglobin 8.0 g/dL (12.0-15.5) Hematocrit 25.3 % (36.0-47.0) Mean Corpuscular Volume 78 fL (79-100) Mean Corpuscular Hemoglobin 25 pg (25-35) Mean Corpuscular Hemoglobin Concent 32 g/dL (31-37) Red Cell Distribution Width 19.6 % (11.5-14.5) Platelet Count 230 x10^3/uL (140-400) Neutrophils (%) (Auto) 75 % (31-73) Lymphocytes (%) (Auto) 10 % (24-48) Monocytes (%) (Auto) 12 % (0-9) Eosinophils (%) (Auto) 2 % (0-3) Basophils (%) (Auto) 0 % (0-3) Neutrophils # (Auto) 3.3 x10^3uL (1.8-7.7) Lymphocytes # (Auto) 0.5 x10^3/uL (1.0-4.8) Monocytes # (Auto) 0.5 x10^3/uL (0.0-1.1) Eosinophils # (Auto) 0.1 x10^3/uL (0.0-0.7) Basophils # (Auto) 0.0 x10^3/uL (0.0-0.2) Sodium Level 141 mmol/L (136-145) Potassium Level 3.9 mmol/L (3.5-5.1) Chloride Level 109 mmol/L (98-107) Carbon Dioxide Level 26 mmol/L (21-32) Anion Gap 6 (6-14) Blood Urea Nitrogen 42 mg/dL (7-20) Creatinine 1.0 mg/dL (0.6-1.0) Estimated GFR (Cockcroft-Gault) 65.2 Glucose Level 158 mg/dL (70-99) Calcium Level 8.9 mg/dL (8.5-10.1) Test 06/20/18 07:48 06/20/18 10:42 Glucose (Fingerstick) 139 mg/dL (70-99) 165 mg/dL (70-99) Medications Active Scripts Medications Dose Route/Sig Max Daily Dose Days Date Category Mag-Oxide (Magnesium Oxide) 400 Mg Tablet 06/11/18 Reported Tradjenta (Linagliptin) 5 Mg Tablet 06/11/18 Reported Tradjenta (Linagliptin) 5 Mg Tablet 06/11/18 Reported Lantus Solostar (Insulin Glargine,Hum.rec.anlog) 100 Unit/1 Ml Insuln.pen 06/11/18 Reported Diltiazem 24Hr Cd (Diltiazem HCl) 240 Mg Cap.er.24h 06/11/18 Reported Losartan Potassium 50 Mg Tablet 06/11/18 Reported Metformin Hcl Er (Metformin Hcl) 500 Mg Tab.er.24h 06/11/18 Reported Klor-Con 10 (Potassium Chloride) 10 Meq Tablet.er 06/11/18 Reported Atorvastatin Calcium 20 Mg Tablet 06/11/18 Reported Furosemide 40 Mg Tablet 06/11/18 Reported Mirtazapine 30 Mg Tablet 06/11/18 Reported Afinitor (Everolimus) 2.5 Mg Tablet 06/11/18 Reported Afinitor (Everolimus) 10 Mg Tablet 10 Mg PO DAILY 03/07/18 Reported Aromasin (Exemestane) 25 Mg Tablet 25 Mg PO DAILY 03/07/18 Reported Xgeva (Denosumab) 120 Mg/1.7 Ml Vial 120 Mg SQ MONTHLY 03/27/17 Reported Aleve (Naproxen Sodium) 220 Mg Tablet 440 Mg PO BID 03/02/17 Reported Vitamin D3 (Cholecalciferol (Vitamin D3)) 2,000 Unit Tablet 2,000 Unit PO DAILY 03/01/17 Reported Calcium (Calcium Carbonate) 500 Mg Tablet 500 Mg PO DAILY 03/01/17 Reported Cardizem Cd (Diltiazem Hcl) 240 Mg Cap.er.24h 1 Cap PO BID 03/01/17 Reported Hydrocodone-Apap 5-325 (Hydrocodone Bit/Acetaminophen) 1 Each Tablet 1 Tab PO PRN Q6HRS PRN 02/06/17 Reported Metformin Hcl 1,000 Mg Tablet 1,000 Mg PO BIDWMEALS 02/06/17 Reported Proair Hfa Inhaler (Albuterol Sulfate) 8.5 Gm Hfa.aer.ad 1 Puff INH PRN Q6HRS PRN 02/06/17 Reported Losartan Potassium 50 Mg Tablet 50 Mg PO DAILY 02/06/17 Reported Montelukast Sodium Tablet (Montelukast Sodium) 10 Mg Tablet 10 Mg PO HS 02/06/17 Reported Labetalol Hcl 200 Mg Tablet 200 Mg PO BID 02/06/17 Reported Impression . ASSESSMENT: 1. Metastatic breast cancer. 2. Obstructive lung disease with asthma component. 3. History of remote tobacco dependence, in remission. 4. Bilateral effusion, MALIGNANT on left by tap 5. Ascites Plan . OK TO D/C HOME FROM MY PERSPECTIVE THORACENTESIS WHEN SHE BECOMES SYMPTOMATIC VS PLEUR-X CATH WILL SEE ALINA GILES MD June 20, 2018 15:00
--- NOTE | 2018-06-20 15:54 | NUR ---
Patient blood sugar 73, no symptoms of low blood sugar. Patient drinking juice and eating cracker/peanut butter snack. Patient's son Sukhdev here to visit, voicing concern regards patient chemotherapy instruction to be a [address] Millan's office and then she is to have Outpatient chemotherapy. [facility] [employer] coordinating with Adele nurse at Dr. Millan's office and also [facility] where bed is not available until noon tomorrow. Corky is calling Dr. Quinn so he will have orders ready for patient to be discharged for son to take to Dr. Millan's office for instruction, then to Outpatient for chemo, then to [facility].
--- NOTE | 2018-06-20 16:17 | NUR ---
MAILE following pt. Spoke with Judi, pt, pt's son and Dr. Millan's office regarding dc plan. Planning on discharging pt tomorrow morning and pt can be transported to Oncologist office for consultation, then to outpatient for chemo treatment and then to [facility]. Discussed with Physician.
--- NOTE | 2018-06-20 17:01 | NUR ---
Meal dose insulin held as patient blood sugar 73 earlier and 113 now. Patient agreed with POC. See labs and emar.
[2018-06-20 19:00] VITALS: BP 119/46
[2018-06-20] MEDS: MONTELUKAST SODIUM 10 MG TABLET. PO SCH (21:00)
[2018-06-20] MEDS: MIRTAZAPINE 7.5 MG TABLET. PO SCH (21:00)
[2018-06-20] MEDS: INSULIN GLARGINE 300 UNITS/3 ML INSULN.PEN. SQ SCH (21:14)
[2018-06-20 22:39] VITALS: BP 122/53
[2018-06-21 03:00] VITALS: BP 128/60
[2018-06-21 07:00] VITALS: BP 145/59
[2018-06-21] MEDS: BUDESONIDE 0.5 MG/2 ML NEBU. NEB SCH (07:27)
[2018-06-21] MEDS: ALBUTEROL SULFATE 2.5 MG/3 ML NEBU. NEB SCH (07:27)
[2018-06-21] MEDS: ATORVASTATIN CALCIUM 20 MG TABLET PO SCH (08:43)
[2018-06-21] MEDS: CHOLECALCIFEROL (VITAMIN D3) 1,000 UNIT TABLET PO SCH (08:43)
[2018-06-21] MEDS: FUROSEMIDE 40 MG TABLET. PO SCH (08:44)
[2018-06-21] MEDS: LABETALOL HCL 200 MG TABLET PO SCH (08:44)
[2018-06-21] MEDS: MESALAMINE 400 MG CAP.DRTAB. PO SCH (08:44)
[2018-06-21 08:45] VITALS: BP 145/59
[2018-06-21] MEDS: LOSARTAN POTASSIUM 50 MG TABLET. PO SCH (08:45)
[2018-06-21] MEDS: CALCIUM CARBONATE 500 MG TABLET PO SCH (08:45)
[2018-06-21] MEDS: NAPROXEN 500 MG TABLET PO SCH (08:49)
[2018-06-21] MEDS: INSULIN LISPRO 300 UNITS/3 ML INSULN.PEN. SQ SCH ×2 (08:59→09:00)
--- NOTE | 2018-06-21 09:20 | PDOC ---
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 pending Vitals Vitals Vital Signs Date Time Temp Pulse Resp B/P (MAP) Pulse Ox O2 Delivery O2 Flow Rate FiO2 06/21/18 08:45 91 145/59 06/21/18 07:29 96 Nasal Cannula 1.0 06/21/18 07:00 98.5 20 98.5 Physical Exam General: Alert, Oriented X3, Cooperative, No acute distress Heart: Normal S1, Normal S2 Lungs: Clear, Crackles, Other (decrease rt side) Abdomen: Normal bowel sounds, Soft, No tenderness, No masses, Other (distended) Extremities: No cyanosis, No edema, Normal pulses, No tenderness/swelling Skin: No rashes, No breakdown, No significant lesion Labs LABS Laboratory Tests Test 06/20/18 10:42 06/20/18 15:24 06/20/18 16:52 06/20/18 21:00 Glucose (Fingerstick) 165 mg/dL (70-99) 73 mg/dL (70-99) 113 mg/dL (70-99) 236 mg/dL (70-99) Test 06/21/18 07:29 Glucose (Fingerstick) 179 mg/dL (70-99) Assessment and Plan Assessmemt and Plan Problems Medical Problems: (1) Ascites Status: Acute (2) Cholelithiasis Status: Acute (3) Pleural effusion Status: Acute (4) Shortness of breath Status: Acute Comment Review of Relevant I have reviewed the following items patrica (where applicable) has been applied. Labs Laboratory Tests Test 06/19/18 11:35 06/19/18 16:33 06/19/18 20:53 06/20/18 02:45 Glucose (Fingerstick) 167 mg/dL (70-99) 138 mg/dL (70-99) 150 mg/dL (70-99) 163 mg/dL (70-99) Test 06/20/18 05:30 06/20/18 07:48 06/20/18 10:42 06/20/18 15:24 White Blood Count 4.5 x10^3/uL (4.0-11.0) Red Blood Count 3.22 x10^6/uL (3.50-5.40) Hemoglobin 8.0 g/dL (12.0-15.5) Hematocrit 25.3 % (36.0-47.0) Mean Corpuscular Volume 78 fL (79-100) Mean Corpuscular Hemoglobin 25 pg (25-35) Mean Corpuscular Hemoglobin Concent 32 g/dL (31-37) Red Cell Distribution Width 19.6 % (11.5-14.5) Platelet Count 230 x10^3/uL (140-400) Neutrophils (%) (Auto) 75 % (31-73) Lymphocytes (%) (Auto) 10 % (24-48) Monocytes (%) (Auto) 12 % (0-9) Eosinophils (%) (Auto) 2 % (0-3) Basophils (%) (Auto) 0 % (0-3) Neutrophils # (Auto) 3.3 x10^3uL (1.8-7.7) Lymphocytes # (Auto) 0.5 x10^3/uL (1.0-4.8) Monocytes # (Auto) 0.5 x10^3/uL (0.0-1.1) Eosinophils # (Auto) 0.1 x10^3/uL (0.0-0.7) Basophils # (Auto) 0.0 x10^3/uL (0.0-0.2) Sodium Level 141 mmol/L (136-145) Potassium Level 3.9 mmol/L (3.5-5.1) Chloride Level 109 mmol/L (98-107) Carbon Dioxide Level 26 mmol/L (21-32) Anion Gap 6 (6-14) Blood Urea Nitrogen 42 mg/dL (7-20) Creatinine 1.0 mg/dL (0.6-1.0) Estimated GFR (Cockcroft-Gault) 65.2 Glucose Level 158 mg/dL (70-99) Calcium Level 8.9 mg/dL (8.5-10.1) Glucose (Fingerstick) 139 mg/dL (70-99) 165 mg/dL (70-99) 73 mg/dL (70-99) Test 06/20/18 16:52 06/20/18 21:00 06/21/18 07:29 Glucose (Fingerstick) 113 mg/dL (70-99) 236 mg/dL (70-99) 179 mg/dL (70-99) Laboratory Tests Test 06/20/18 10:42 06/20/18 15:24 06/20/18 16:52 06/20/18 21:00 Glucose (Fingerstick) 165 mg/dL (70-99) 73 mg/dL (70-99) 113 mg/dL (70-99) 236 mg/dL (70-99) Test 06/21/18 07:29 Glucose (Fingerstick) 179 mg/dL (70-99) Microbiology 06/11/18 Blood Culture - Final, Complete NO GROWTH AFTER 5 DAYS 06/12/18 Anaerobic/Aerobic Culture - Final, Complete 06/12/18 Anaerobic Culture Result 1 (KEISHA) - Final, Complete 06/12/18 Aerobic Culture - Final, Complete 06/12/18 Aerobic Culture Result 1 (KEISHA) - Final, Complete 06/12/18 Gram Stain - Final, Complete 06/12/18 Gram Stain Result 1 (KEISHA) - Final, Complete 06/12/18 Gram Stain Result 2 (KEISHA) - Final, Complete 06/11/18 Urine Culture - Final, Complete 06/11/18 Urine Culture Result 1 (KEISHA) - Final, Complete 06/11/18 Antimicrobic Susceptibility - Final, Complete Medications Current Medications Albuterol/ Ipratropium (Duoneb) 3 ml 1X ONCE NEB Last administered on 06/11/18at 17:19; Start 06/11/18 at 17:15; Stop 06/11/18 at 17:16; Status DC Ondansetron HCl (Zofran) 4 mg PRN Q8HRS PRN IV NAUSEA/VOMITING; Start 06/11/18 at 19:15; Stop 06/12/18 at 19:14; Status DC Morphine Sulfate (Morphine Sulfate) 4 mg PRN Q2HR PRN IV PAIN; Start 06/11/18 at 19:15; Stop 06/12/18 at 19:14; Status DC Acetaminophen (Tylenol) 650 mg PRN Q4HRS PRN PO FEVER; Start 06/11/18 at 19:15; Stop 06/12/18 at 19:14; Status DC Dextrose (Dextrose 50%-Water Syringe) 12.5 gm PRN Q15MIN PRN IV SEE COMMENTS; Start 06/11/18 at 19:15; Status Cancel Insulin Human Regular (HumuLIN R VIAL) 5 unit 1X ONCE IV Last administered on 06/11/18 20:11; Start 06/11/18 at 19:30; Stop 06/11/18 at 19:31; Status DC Albuterol Sulfate (Ventolin Neb Soln) 2.5 mg PRN Q6HRS PRN INH SHORTNESS OF BREATH Last administered on 06/12/18 08:37; Start 06/11/18 at 20:45 Atorvastatin Calcium (Lipitor) 20 mg DAILY PO Last administered on 06/21/18 08:43; Start 06/12/18 at 09:00 Calcium Carbonate/ Glycine (Oscal) 500 mg DAILY PO Last administered on 06/21/18 08:45; Start 06/12/18 at 09:00 Furosemide (Lasix) 40 mg DAILY PO Last administered on 06/21/18 08:44; Start 06/12/18 at 09:00 Acetaminophen/ Hydrocodone Bitart (Lortab 5/325) 1 tab PRN Q6HRS PRN PO PAIN Last administered on 06/17/18 13:21; Start 06/11/18 at 20:45 Losartan Potassium (Cozaar) 50 mg DAILY PO Last administered on 06/21/18 08:45; Start 06/12/18 at 09:00 Vitamin D (Vitamin D3) 2,000 unit DAILY PO Last administered on 06/21/18 08:43; Start 06/12/18 at 09:00 Diltiazem HCl (Cardizem 24hr Cd) 240 mg BID PO Last administered on 06/21/18 08:44; Start 06/11/18 at 21:00 Non-Formulary Medication (Everolimus (Afinitor)) 10 mg DAILY PO ; Start 06/12/18 at 09:00; Stop 06/12/18 at 09:00; Status DC Non-Formulary Medication (Exemestane (Aromasin)) 25 mg DAILY PO ; Start 06/12/18 at 09:00; Stop 06/12/18 at 09:00; Status DC Labetalol HCl (Trandate) 200 mg BID PO Last administered on 06/21/18 08:44; Start 06/11/18 at 21:00 Non-Formulary Medication (Metformin Hcl ) 1,000 mg BIDWMEALS PO ; Start 06/12/18 at 08:00; Status UNV Montelukast Sodium (Singulair) 10 mg QHS PO Last administered on 06/20/18 21:00; Start 06/11/18 at 21:00 Naproxen (Naprosyn) 500 mg BID PO Last administered on 06/18/18 22:09; Start 06/11/18 at 21:00 Insulin Human Lispro (HumaLOG) 0-7 UNITS TIDWMEALS SQ Last administered on 06/21/18 09:00; Start 06/12/18 at 08:00 Dextrose (Dextrose 50%-Water Syringe) 12.5 gm PRN Q15MIN PRN IV SEE COMMENTS; Start 06/11/18 at 20:45 Insulin Glargine (Lantus) 7 units QHS SQ Last administered on 06/16/18at 20:51; Start 06/11/18 at 21:45; Stop 06/17/18 at 09:53; Status DC Loperamide HCl (Imodium) 2 mg PRN Q15MIN PRN PO DIARRHEA (1st Choice); Start 06/12/18 at 08:45 Diphenoxylate HCl/ Atropine (Lomotil) 1 tab PRN QID PRN PO DIARRHEA (2nd Choice) Last administered on 06/12/18 10:16; Start 06/12/18 at 08:45 Dronabinol (Marinol) 5 mg BIDACLD PO Last administered on 06/13/18 17:12; Start 06/12/18 at 11:30; Stop 06/14/18 at 12:20; Status DC Albumin Human 500 ml @ 125 mls/hr 1X ONCE IV Last administered on 06/12/18 15:58; Start 06/12/18 at 09:30; Stop 06/12/18 at 13:29; Status DC Pantoprazole Sodium (Protonix) 40 mg DAILYAC PO Last administered on 06/13/18 07:30; Start 06/12/18 at 11:30; Stop 06/13/18 at 11:24; Status DC Zolpidem Tartrate (Ambien) 5 mg PRN QHS PRN PO INSOMNIA; Start 06/12/18 at 11:30 Mirtazapine (Remeron) 7.5 mg QHS PO Last administered on 06/20/18at 21:00; Start 06/12/18 at 21:00 Mesalamine (Delzicol) 800 mg BID PO Last administered on 06/21/18at 08:44; Start 06/12/18 at 15:00 Albuterol Sulfate (Ventolin Neb Soln) 2.5 mg RTQID NEB Last administered on 06/21/18at 07:27; Start 06/12/18 at 16:00 Budesonide (Pulmicort) 0.5 mg RTBID NEB Last administered on 06/21/18at 07:27; Start 06/12/18 at 20:00 Ondansetron HCl (Zofran) 4 mg STK-MED ONCE .ROUTE ; Start 06/14/18 at 11:10; Stop 06/14/18 at 11:11; Status DC Propofol 20 ml @ As Directed STK-MED ONCE IV ; Start 06/14/18 at 11:10; Stop 06/14/18 at 11:11; Status DC Lidocaine HCl (Lidocaine Pf 2% Vial) 5 ml STK-MED ONCE .ROUTE ; Start 06/14/18 at 11:10; Stop 06/14/18 at 11:11; Status DC Sevoflurane (Ultane) 60 ml STK-MED ONCE IH ; Start 06/14/18 at 11:10; Stop 06/14/18 at 11:11; Status DC Fentanyl Citrate (Fentanyl 2ml Vial) 100 mcg STK-MED ONCE .ROUTE ; Start 06/14/18 at 11:10; Stop 06/14/18 at 11:11; Status DC Succinylcholine Chloride (Anectine) 200 mg STK-MED ONCE .ROUTE ; Start 06/14/18 at 11:10; Stop 06/14/18 at 11:11; Status DC Dexamethasone Sodium Phosphate (Decadron) 4 mg STK-MED ONCE .ROUTE ; Start 06/14/18 at 11:10; Stop 06/14/18 at 11:11; Status DC Glycopyrrolate (Robinul) 1 mg STK-MED ONCE .ROUTE ; Start 06/14/18 at 11:11; Stop 06/14/18 at 11:12; Status DC Neostigmine Methylsulfate (Neostigmine Methylsulfate) 5 mg STK-MED ONCE .ROUTE ; Start 06/14/18 at 11:11; Stop 06/14/18 at 11:12; Status DC Rocuronium [place] (Zemuron) 50 mg STK-MED ONCE .ROUTE ; Start 06/14/18 at 11:11; Stop 06/14/18 at 11:12; Status DC Dronabinol (Marinol) 2.5 mg BIDACLD PO ; Start 06/14/18 at 16:30; Stop 06/14/18 at 16:35; Status DC Dronabinol (Marinol) 2.5 mg BIDACLD PO Last administered on 06/19/18at 12:16; Start 06/16/18 at 11:30; Stop 06/19/18 at 14:53; Status DC Amino Acids/ Glycerin/ Electrolytes 1,000 ml @ 80 mls/hr [id number] IV Last administered on 06/17/18at 23:05; Start 06/16/18 at 11:00; Stop 06/18/18 at 10:33; Status DC Cefazolin Sodium 3 gm/Dextrose 100 ml @ 200 mls/hr 1X PREOP PRN IV protocol; Start 06/17/18 at 06:00; Stop 06/17/18 at 15:00; Status Cancel Insulin Glargine (Lantus) 14 units QHS SQ Last administered on 06/17/18at 21:16; Start 06/17/18 at 21:00; Stop 06/18/18 at 12:14; Status DC Insulin Human Lispro (HumaLOG) 5 units TIDWMEALS SQ Last administered on 06/18/18at 09:18; Start 06/17/18 at 12:00; Stop 06/18/18 at 10:34; Status DC Insulin Human Lispro (HumaLOG) 10 units 1X ONCE SQ ; Start 06/17/18 at 10:00; Stop 06/17/18 at 10:01; Status DC Cefazolin Sodium 50 ml @ 100 mls/hr 1X ONCE IV Last administered on 06/17/18at 11:59; Start 06/17/18 at 12:15; Stop 06/17/18 at 12:49; Status DC Bupivacaine HCl (Sensorcaine Mpf 0.5%) 30 ml STK-MED ONCE INJ Last administered on 06/17/18 12:11; Start 06/17/18 at 12:11; Stop 06/17/18 at 12:49; Status DC Bupivacaine HCl/ Epinephrine Bitart (Sensorcain-Mpf Epi 0.5%-1:[id number]) 30 ml STK-MED ONCE INJ Last administered on 06/17/18at 12:44; Start 06/17/18 at 12:44; Stop 06/17/18 at 12:49; Status DC Insulin Human Lispro (HumaLOG VIAL) 6 unit 1X ONCE SQ Last administered on 06/17/18 13:42; Start 06/17/18 at 13:45; Stop 06/17/18 at 13:46; Status DC Ringer's Solution 1,040 ml @ 1,040 mls/hr 1X ONCE IV ; Start 06/17/18 at 14:45; Stop 06/17/18 at 15:44; Status DC Simethicone (Gas-X) 80 mg PRN AFTMEALHC PRN PO GAS / BLOATING Last administered on 06/19/18 08:41; Start 06/17/18 at 15:00 Insulin Human Lispro (HumaLOG) 11 units TIDWMEALS SQ ; Start 06/18/18 at 12:00; Stop 06/18/18 at 14:57; Status DC Insulin Glargine (Lantus) 22 units QHS SQ Last administered on 06/20/18 21:14; Start 06/18/18 at 21:00 Insulin Human Lispro (HumaLOG) 13 units TIDWMEALS SQ Last administered on 06/21/18 08:59; Start 06/18/18 at 17:00 Dronabinol (Marinol) 5 mg BIDACLD PO Last administered on 06/20/18 16:30; Start 06/19/18 at 16:30 Albumin Human 50 ml @ 50 mls/hr 1X ONCE IV Last administered on 06/19/18 15:56; Start 06/19/18 at 15:00; Stop 06/19/18 at 15:59; Status DC Furosemide (Lasix) 40 mg 1X ONCE IVP Last administered on 5/1/19at 18:35; Start 06/19/18 at 18:00; Stop 06/19/18 at 18:01; Status DC Active Scripts Active Reported Mag-Oxide (Magnesium Oxide) 400 Mg Tablet Tradjenta (Linagliptin) 5 Mg Tablet Tradjenta (Linagliptin) 5 Mg Tablet Lantus Solostar (Insulin Glargine,Hum.rec.anlog) 100 Unit/1 Ml Insuln.pen Diltiazem 24Hr Cd (Diltiazem HCl) 240 Mg Cap.er.24h Losartan Potassium 50 Mg Tablet Metformin Hcl Er (Metformin Hcl) 500 Mg Tab.er.24h Klor-Con 10 (Potassium Chloride) 10 Meq Tablet.er Atorvastatin Calcium 20 Mg Tablet Furosemide 40 Mg Tablet Mirtazapine 30 Mg Tablet Afinitor (Everolimus) 2.5 Mg Tablet Afinitor (Everolimus) 10 Mg Tablet 10 Mg PO DAILY Aromasin (Exemestane) 25 Mg Tablet 25 Mg PO DAILY Xgeva (Denosumab) 120 Mg/1.7 Ml Vial 120 Mg SQ MONTHLY Aleve (Naproxen Sodium) 220 Mg Tablet 440 Mg PO BID Vitamin D3 (Cholecalciferol (Vitamin D3)) 2,000 Unit Tablet 2,000 Unit PO DAILY Calcium (Calcium Carbonate) 500 Mg Tablet 500 Mg PO DAILY Cardizem Cd (Diltiazem Hcl) 240 Mg Cap.er.24h 1 Cap PO BID Hydrocodone-Apap 5-325 (Hydrocodone Bit/Acetaminophen) 1 Each Tablet 1 Tab PO PRN Q6HRS PRN Metformin Hcl 1,000 Mg Tablet 1,000 Mg PO BIDWMEALS Proair Hfa Inhaler (Albuterol Sulfate) 8.5 Gm Hfa.aer.ad 1 Puff INH PRN Q6HRS PRN Losartan Potassium 50 Mg Tablet 50 Mg PO DAILY Montelukast Sodium Tablet (Montelukast Sodium) 10 Mg Tablet 10 Mg PO HS Labetalol Hcl 200 Mg Tablet 200 Mg PO BID Vitals/I & O Vital Sign - Last 24 Hours 06/20/18 06/20/18 06/20/18 06/20/18 11:00 11:24 15:00 15:03 Temp 97.9 98.3 97.9 98.3 Pulse 97 90 Resp 20 19 B/P (MAP) 115/45 (68) 102/95 (97) Pulse Ox 93 95 95 95 O2 Delivery Room Air Room Air Room Air Room Air 06/20/18 06/20/18 06/20/18 06/20/18 19:00 20:00 21:04 21:18 Temp 97.9 97.9 Pulse 101 100 Resp 19 B/P (MAP) 119/46 (70) 118/48 Pulse Ox 93 95 O2 Delivery Room Air Room Air Room Air 06/20/18 06/20/18 06/21/18 06/21/18 22:37 22:39 03:00 07:00 Temp 99.0 97.9 98.5 99.0 97.9 98.5 Pulse 103 103 97 91 Resp 20 19 20 B/P (MAP) 122/53 122/53 (76) 128/60 (82) 145/59 (87) Pulse Ox 94 94 95 O2 Delivery Nasal Cannula Room Air Room Air O2 Flow Rate 2.0 06/21/18 06/21/18 06/21/18 06/21/18 07:27 07:29 08:44 08:44 Pulse 91 91 B/P (MAP) 145/59 145/59 Pulse Ox 96 96 O2 Delivery Nasal Cannula Nasal Cannula O2 Flow Rate 1.0 1.0 06/21/18 08:45 Pulse 91 B/P (MAP) 145/59 Intake and Output 06/20/18 06/20/18 06/21/18 15:00 23:00 07:00 Intake Total 360 ml Output Total 200 ml Balance 360 ml -200 ml Nutrition Consultation Dietary Evaluation: Recommendations by RD: Increase Calorie Intake, Protein supplementation Comments: PPN d/c'd continue with regular diet Glucerna tid Expected Outcomes/Goals: to meet > 75% est nutr needs- met, goal ongoing Malnutrition Findings: Body Fat Depletion (Non Severe: Mild Depletion Weight Status: Underweight KOSTAS RODRIGUEZ MD June 21, 2018 09:20
--- NOTE | 2018-06-21 09:23 | PDOC3 ---
Discharge Summary Date of Admission: Jun 11, 2018 Date of Discharge: June 21, 2018 Follow-Up: 1-2 days Admitting Diagnosis comment: DISCHARGE DX Chief Complaint Assessment: Acute hypoxic respiratory failure improved metastatic breast cancer to bone pleural effusion, malignant, Bilateral effusion, MALIGNANT on left by tap Dm1 chronic HTN, hypotension OA Osteoporosis HLD Asthma GERD Anorexia Depressions SOB, abdominal distention severe protein-caloric malnutrition d/c today d/w DR MUNROE History of Present Illness History of Present Illness Patient seen and examined Discussed with control clerk repairs disposition pending Vitals Vitals Vital Signs Date Time Temp Pulse Resp B/P (MAP) Pulse Ox O2 Delivery O2 Flow Rate FiO2 06/21/18 08:45 91 145/59 06/21/18 07:29 96 Nasal Cannula 1.0 06/21/18 07:00 98.5 20 98.5 Physical Exam General: Alert, Oriented X3, Cooperative, No acute distress Heart: Normal S1, Normal S2 Lungs: Clear, Crackles, Other (decrease rt side) Abdomen: Normal bowel sounds, Soft, No tenderness, No masses, Other (distended) Extremities: No cyanosis, No edema, Normal pulses, No tenderness/swelling Skin: No rashes, No breakdown, No significant lesion FINAL DIAGNOSIS Problems Medical Problems: (1) Ascites Status: Acute (2) Cholelithiasis Status: Acute (3) Pleural effusion Status: Acute (4) Shortness of breath Status: Acute Brief Hospital Course Ms. Hobson is a 78 old [sex] who presented with [MALIGNANT PLEURAL EFFUSION, RESP FAILURE ] CONDITION AT DISCHARGE: Improved Discharge Medications Current Medications Albuterol/ Ipratropium (Duoneb) 3 ml 1X ONCE NEB Last administered on 06/11/18at 17:19; Start 06/11/18 at 17:15; Stop 06/11/18 at 17:16; Status DC Ondansetron HCl (Zofran) 4 mg PRN Q8HRS PRN IV NAUSEA/VOMITING; Start 06/11/18 at 19:15; Stop 06/12/18 at 19:14; Status DC Morphine Sulfate (Morphine Sulfate) 4 mg PRN Q2HR PRN IV PAIN; Start 06/11/18 at 19:15; Stop 06/12/18 at 19:14; Status DC Acetaminophen (Tylenol) 650 mg PRN Q4HRS PRN PO FEVER; Start 06/11/18 at 19:15; Stop 06/12/18 at 19:14; Status DC Dextrose (Dextrose 50%-Water Syringe) 12.5 gm PRN Q15MIN PRN IV SEE COMMENTS; Start 06/11/18 at 19:15; Status Cancel Insulin Human Regular (HumuLIN R VIAL) 5 unit 1X ONCE IV Last administered on 06/11/18 20:11; Start 06/11/18 at 19:30; Stop 06/11/18 at 19:31; Status DC Albuterol Sulfate (Ventolin Neb Soln) 2.5 mg PRN Q6HRS PRN INH SHORTNESS OF BREATH Last administered on 06/12/18 08:37; Start 06/11/18 at 20:45 Atorvastatin Calcium (Lipitor) 20 mg DAILY PO Last administered on 06/21/18 08:43; Start 06/12/18 at 09:00 Calcium Carbonate/ Glycine (Oscal) 500 mg DAILY PO Last administered on 06/21/18 08:45; Start 06/12/18 at 09:00 Furosemide (Lasix) 40 mg DAILY PO Last administered on 06/21/18 08:44; Start 06/12/18 at 09:00 Acetaminophen/ Hydrocodone Bitart (Lortab 5/325) 1 tab PRN Q6HRS PRN PO PAIN Last administered on 06/17/18 13:21; Start 06/11/18 at 20:45 Losartan Potassium (Cozaar) 50 mg DAILY PO Last administered on 06/21/18 08:45; Start 06/12/18 at 09:00 Vitamin D (Vitamin D3) 2,000 unit DAILY PO Last administered on 06/21/18 08:43; Start 06/12/18 at 09:00 Diltiazem HCl (Cardizem 24hr Cd) 240 mg BID PO Last administered on 06/21/18 08:44; Start 06/11/18 at 21:00 Non-Formulary Medication (Everolimus (Afinitor)) 10 mg DAILY PO ; Start 06/12/18 at 09:00; Stop 06/12/18 at 09:00; Status DC Non-Formulary Medication (Exemestane (Aromasin)) 25 mg DAILY PO ; Start 06/12/18 at 09:00; Stop 06/12/18 at 09:00; Status DC Labetalol HCl (Trandate) 200 mg BID PO Last administered on 06/21/18 08:44; Start 06/11/18 at 21:00 Non-Formulary Medication (Metformin Hcl ) 1,000 mg BIDWMEALS PO ; Start 06/12/18 at 08:00; Status UNV Montelukast Sodium (Singulair) 10 mg QHS PO Last administered on 06/20/18 21:00; Start 06/11/18 at 21:00 Naproxen (Naprosyn) 500 mg BID PO Last administered on 06/18/18 22:09; Start 06/11/18 at 21:00 Insulin Human Lispro (HumaLOG) 0-7 UNITS TIDWMEALS SQ Last administered on 06/21/18 09:00; Start 06/12/18 at 08:00 Dextrose (Dextrose 50%-Water Syringe) 12.5 gm PRN Q15MIN PRN IV SEE COMMENTS; Start 06/11/18 at 20:45 Insulin Glargine (Lantus) 7 units QHS SQ Last administered on 06/16/18 20:51; Start 06/11/18 at 21:45; Stop 06/17/18 at 09:53; Status DC Loperamide HCl (Imodium) 2 mg PRN Q15MIN PRN PO DIARRHEA (1st Choice); Start 06/12/18 at 08:45 Diphenoxylate HCl/ Atropine (Lomotil) 1 tab PRN QID PRN PO DIARRHEA (2nd Choice) Last administered on 06/12/18at 10:16; Start 06/12/18 at 08:45 Dronabinol (Marinol) 5 mg BIDACLD PO Last administered on 06/13/18 17:12; Start 06/12/18 at 11:30; Stop 06/14/18 at 12:20; Status DC Albumin Human 500 ml @ 125 mls/hr 1X ONCE IV Last administered on 06/12/18 15:58; Start 06/12/18 at 09:30; Stop 06/12/18 at 13:29; Status DC Pantoprazole Sodium (Protonix) 40 mg DAILYAC PO Last administered on 06/13/18at 07:30; Start 06/12/18 at 11:30; Stop 06/13/18 at 11:24; Status DC Zolpidem Tartrate (Ambien) 5 mg PRN QHS PRN PO INSOMNIA; Start 06/12/18 at 11:30 Mirtazapine (Remeron) 7.5 mg QHS PO Last administered on 06/20/18at 21:00; Start 06/12/18 at 21:00 Mesalamine (Delzicol) 800 mg BID PO Last administered on 06/21/18at 08:44; Start 06/12/18 at 15:00 Albuterol Sulfate (Ventolin Neb Soln) 2.5 mg RTQID NEB Last administered on 06/21/18at 07:27; Start 06/12/18 at 16:00 Budesonide (Pulmicort) 0.5 mg RTBID NEB Last administered on 06/21/18 07:27; Start 06/12/18 at 20:00 Ondansetron HCl (Zofran) 4 mg STK-MED ONCE .ROUTE ; Start 06/14/18 at 11:10; Stop 06/14/18 at 11:11; Status DC Propofol 20 ml @ As Directed STK-MED ONCE IV ; Start 06/14/18 at 11:10; Stop 06/14/18 at 11:11; Status DC Lidocaine HCl (Lidocaine Pf 2% Vial) 5 ml STK-MED ONCE .ROUTE ; Start 06/14/18 at 11:10; Stop 06/14/18 at 11:11; Status DC Sevoflurane (Ultane) 60 ml STK-MED ONCE IH ; Start 06/14/18 at 11:10; Stop 06/14/18 at 11:11; Status DC Fentanyl Citrate (Fentanyl 2ml Vial) 100 mcg STK-MED ONCE .ROUTE ; Start 06/14/18 at 11:10; Stop 06/14/18 at 11:11; Status DC Succinylcholine Chloride (Anectine) 200 mg STK-MED ONCE .ROUTE ; Start 06/14/18 at 11:10; Stop 06/14/18 at 11:11; Status DC Dexamethasone Sodium Phosphate (Decadron) 4 mg STK-MED ONCE .ROUTE ; Start 06/14/18 at 11:10; Stop 06/14/18 at 11:11; Status DC Glycopyrrolate (Robinul) 1 mg STK-MED ONCE .ROUTE ; Start 06/14/18 at 11:11; Stop 06/14/18 at 11:12; Status DC Neostigmine Methylsulfate (Neostigmine Methylsulfate) 5 mg STK-MED ONCE .ROUTE ; Start 06/14/18 at 11:11; Stop 06/14/18 at 11:12; Status DC Rocuronium [place] (Zemuron) 50 mg STK-MED ONCE .ROUTE ; Start 06/14/18 at 11: 11; Stop 06/14/18 at 11:12; Status DC Dronabinol (Marinol) 2.5 mg BIDACLD PO ; Start 06/14/18 at 16:30; Stop 06/14/18 at 16:35; Status DC Dronabinol (Marinol) 2.5 mg BIDACLD PO Last administered on 06/19/18at 12:16; Start 06/16/18 at 11:30; Stop 06/19/18 at 14:53; Status DC Amino Acids/ Glycerin/ Electrolytes 1,000 ml @ 80 mls/hr [id number] IV Last administered on 06/17/18at 23:05; Start 06/16/18 at 11:00; Stop 06/18/18 at 10:33; Status DC Cefazolin Sodium 3 gm/Dextrose 100 ml @ 200 mls/hr 1X PREOP PRN IV protocol; Start 06/17/18 at 06:00; Stop 06/17/18 at 15:00; Status Cancel Insulin Glargine (Lantus) 14 units QHS SQ Last administered on 06/17/18at 21:16; Start 06/17/18 at 21:00; Stop 06/18/18 at 12:14; Status DC Insulin Human Lispro (HumaLOG) 5 units TIDWMEALS SQ Last administered on 06/18/18at 09:18; Start 06/17/18 at 12:00; Stop 06/18/18 at 10:34; Status DC Insulin Human Lispro (HumaLOG) 10 units 1X ONCE SQ ; Start 06/17/18 at 10:00; Stop 06/17/18 at 10:01; Status DC Cefazolin Sodium 50 ml @ 100 mls/hr 1X ONCE IV Last administered on 06/17/18 11:59; Start 06/17/18 at 12:15; Stop 06/17/18 at 12:49; Status DC Bupivacaine HCl (Sensorcaine Mpf 0.5%) 30 ml STK-MED ONCE INJ Last administered on 06/17/18at 12:11; Start 06/17/18 at 12:11; Stop 06/17/18 at 12:49; Status DC Bupivacaine HCl/ Epinephrine Bitart (Sensorcain-Mpf Epi 0.5%-1:600055) 30 ml STK-MED ONCE INJ Last administered on 06/17/18 12:44; Start 06/17/18 at 12:44; Stop 06/17/18 at 12:49; Status DC Insulin Human Lispro (HumaLOG VIAL) 6 unit 1X ONCE SQ Last administered on 06/17/18 13:42; Start 06/17/18 at 13:45; Stop 06/17/18 at 13:46; Status DC Ringer's Solution 1,040 ml @ 1,040 mls/hr 1X ONCE IV ; Start 06/17/18 at 14:45; Stop 06/17/18 at 15:44; Status DC Simethicone (Gas-X) 80 mg PRN AFTMEALHC PRN PO GAS / BLOATING Last administered on 06/19/18 08:41; Start 06/17/18 at 15:00 Insulin Human Lispro (HumaLOG) 11 units TIDWMEALS SQ ; Start 06/18/18 at 12:00; Stop 06/18/18 at 14:57; Status DC Insulin Glargine (Lantus) 22 units QHS SQ Last administered on 06/20/18 21:14; Start 06/18/18 at 21:00 Insulin Human Lispro (HumaLOG) 13 units TIDWMEALS SQ Last administered on 06/21/18 08:59; Start 06/18/18 at 17:00 Dronabinol (Marinol) 5 mg BIDACLD PO Last administered on 06/20/18 16:30; Star t 06/19/18 at 16:30 Albumin Human 50 ml @ 50 mls/hr 1X ONCE IV Last administered on 06/19/18 15:56; Start 06/19/18 at 15:00; Stop 06/19/18 at 15:59; Status DC Furosemide (Lasix) 40 mg 1X ONCE IVP Last administered on 06/19/18at 18:35; Start 06/19/18 at 18:00; Stop 06/19/18 at 18:01; Status DC Active Scripts Active Reported Mag-Oxide (Magnesium Oxide) 400 Mg Tablet Tradjenta (Linagliptin) 5 Mg Tablet Tradjenta (Linagliptin) 5 Mg Tablet Lantus Solostar (Insulin Glargine,Hum.rec.anlog) 100 Unit/1 Ml Insuln.pen Diltiazem 24Hr Cd (Diltiazem HCl) 240 Mg Cap.er.24h Losartan Potassium 50 Mg Tablet Metformin Hcl Er (Metformin Hcl) 500 Mg Tab.er.24h Klor-Con 10 (Potassium Chloride) 10 Meq Tablet.er Atorvastatin Calcium 20 Mg Tablet Furosemide 40 Mg Tablet Mirtazapine 30 Mg Tablet Afinitor (Everolimus) 2.5 Mg Tablet Afinitor (Everolimus) 10 Mg Tablet 10 Mg PO DAILY Aromasin (Exemestane) 25 Mg Tablet 25 Mg PO DAILY Xgeva (Denosumab) 120 Mg/1.7 Ml Vial 120 Mg SQ MONTHLY Aleve (Naproxen Sodium) 220 Mg Tablet 440 Mg PO BID Vitamin D3 (Cholecalciferol (Vitamin D3)) 2,000 Unit Tablet 2,000 Unit PO DAILY Calcium (Calcium Carbonate) 500 Mg Tablet 500 Mg PO DAILY Cardizem Cd (Diltiazem Hcl) 240 Mg Cap.er.24h 1 Cap PO BID Hydrocodone-Apap 5-325 (Hydrocodone Bit/Acetaminophen) 1 Each Tablet 1 Tab PO PRN Q6HRS PRN Metformin Hcl 1,000 Mg Tablet 1,000 Mg PO BIDWMEALS Proair Hfa Inhaler (Albuterol Sulfate) 8.5 Gm Hfa.aer.ad 1 Puff INH PRN Q6HRS PRN Losartan Potassium 50 Mg Tablet 50 Mg PO DAILY Montelukast Sodium Tablet (Montelukast Sodium) 10 Mg Tablet 10 Mg PO HS Labetalol Hcl 200 Mg Tablet 200 Mg PO BID Vital Signs Vital Signs Date Time Temp Pulse Resp B/P (MAP) Pulse Ox O2 Delivery O2 Flow Rate FiO2 06/21/18 08:45 91 145/59 06/21/18 07:29 96 Nasal Cannula 1.0 06/21/18 07:00 98.5 20 98.5 Labs Laboratory Tests Test 06/19/18 11:35 06/19/18 16:33 06/19/18 20:53 06/20/18 02:45 Glucose (Fingerstick) 167 mg/dL (70-99) 138 mg/dL (70-99) 150 mg/dL (70-99) 163 mg/dL (70-99) Test 06/20/18 05:30 06/20/18 07:48 06/20/18 10:42 06/20/18 15:24 White Blood Count 4.5 x10^3/uL (4.0-11.0) Red Blood Count 3.22 x10^6/uL (3.50-5.40) Hemoglobin 8.0 g/dL (12.0-15.5) Hematocrit 25.3 % (36.0-47.0) Mean Corpuscular Volume 78 fL (79-100) Mean Corpuscular Hemoglobin 25 pg (25-35) Mean Corpuscular Hemoglobin Concent 32 g/dL (31-37) Red Cell Distribution Width 19.6 % (11.5-14.5) Platelet Count 230 x10^3/uL (140-400) Neutrophils (%) (Auto) 75 % (31-73) Lymphocytes (%) (Auto) 10 % (24-48) Monocytes (%) (Auto) 12 % (0-9) Eosinophils (%) (Auto) 2 % (0-3) Basophils (%) (Auto) 0 % (0-3) Neutrophils # (Auto) 3.3 x10^3uL (1.8-7.7) Lymphocytes # (Auto) 0.5 x10^3/uL (1.0-4.8) Monocytes # (Auto) 0.5 x10^3/uL (0.0-1.1) Eosinophils # (Auto) 0.1 x10^3/uL (0.0-0.7) Basophils # (Auto) 0.0 x10^3/uL (0.0-0.2) Sodium Level 141 mmol/L (136-145) Potassium Level 3.9 mmol/L (3.5-5.1) Chloride Level 109 mmol/L (98-107) Carbon Dioxide Level 26 mmol/L (21-32) Anion Gap 6 (6-14) Blood Urea Nitrogen 42 mg/dL (7-20) Creatinine 1.0 mg/dL (0.6-1.0) Estimated GFR (Cockcroft-Gault) 65.2 Glucose Level 158 mg/dL (70-99) Calcium Level 8.9 mg/dL (8.5-10.1) Glucose (Fingerstick) 139 mg/dL (70-99) 165 mg/dL (70-99) 73 mg/dL (70-99) Test 06/20/18 16:52 06/20/18 21:00 06/21/18 07:29 Glucose (Fingerstick) 113 mg/dL (70-99) 236 mg/dL (70-99) 179 mg/dL (70-99) Laboratory Tests Test 06/20/18 10:42 06/20/18 15:24 06/20/18 16:52 06/20/18 21:00 Glucose (Fingerstick) 165 mg/dL (70-99) 73 mg/dL (70-99) 113 mg/dL (70-99) 236 mg/dL (70-99) Test 06/21/18 07:29 Glucose (Fingerstick) 179 mg/dL (70-99) Allergies Allergies Coded Allergies Type Severity Reaction Last Updated Verified No Known Drug Allergies 05/24/18 No Disposition/Orders: D/C to Home Patient Instructions D/C PLANNING 33 MIN KOSTAS RODRIGUEZ MD June 21, 2018 09:23
--- NOTE | 2018-06-21 09:28 | PDOC ---
PROGRESS NOTES Subjective Subjective c/c - f/u of Metastatic breast cancer ROS - dyspnea improved Objective Objective Vital Signs Date Time Temp Pulse Resp B/P (MAP) Pulse Ox O2 Delivery O2 Flow Rate FiO2 06/21/18 08:45 91 145/59 06/21/18 07:29 96 Nasal Cannula 1.0 06/21/18 07:00 98.5 20 98.5 Intake and Output 06/21/18 07:00 Intake Total 360 ml Output Total 200 ml Balance 160 ml Intake Oral 360 ml Output Urine Total 200 ml Physical Exam Heart: Normal S1, Normal S2 General: Alert, Oriented X3 Lungs: Clear to auscultation Neuro: Normal speech Psych/Mental Status: Mental status NL Assessment Assessment Problems Medical Problems: (1) Ascites Status: Acute (2) Cholelithiasis Status: Acute (3) Pleural effusion Status: Acute (4) Shortness of breath Status: Acute Assessment and Plan: She is a 78-year-old female with metastatic breast cancer to the bones and ascites and pleural effusions 1. Metastatic breast cancer: Concern for progressive disease (on bone scan and fluid accumulation possibly) as well as side effects from treatment, will hold exemestane and everolimus, Plan abraxane chemo as outpt 06/21/18. I d/w pharmacy. Consulted Dr Velazquez for port, s/p port on 06/17/18. f/u with me as scheduled. I d/w Dr Quinn. 2. Pleural effusion. 1000 cc's of thin yellow fluid was removed, left side 06/12/18.. Cytology positive for malignancy per Dr Meléndez. 3. Ascites. 255 cc of thin yellow ascites was then withdrawn 06/12/18. Cytology positive for malignancy per Dr Meléndez 4. Anemia with microcytosis: ferritin and iron panel reveal anemia due to chronic disease. Hb 8.0 Comment Review of Relevant I have reviewed the following items patrica (where applicable) has been applied. Labs Laboratory Tests Test 06/19/18 11:35 06/19/18 16:33 06/19/18 20:53 06/20/18 02:45 Glucose (Fingerstick) 167 mg/dL (70-99) 138 mg/dL (70-99) 150 mg/dL (70-99) 163 mg/dL (70-99) Test 06/20/18 05:30 06/20/18 07:48 06/20/18 10:42 06/20/18 15:24 White Blood Count 4.5 x10^3/uL (4.0-11.0) Red Blood Count 3.22 x10^6/uL (3.50-5.40) Hemoglobin 8.0 g/dL (12.0-15.5) Hematocrit 25.3 % (36.0-47.0) Mean Corpuscular Volume 78 fL (79-100) Mean Corpuscular Hemoglobin 25 pg (25-35) Mean Corpuscular Hemoglobin Concent 32 g/dL (31-37) Red Cell Distribution Width 19.6 % (11.5-14.5) Platelet Count 230 x10^3/uL (140-400) Neutrophils (%) (Auto) 75 % (31-73) Lymphocytes (%) (Auto) 10 % (24-48) Monocytes (%) (Auto) 12 % (0-9) Eosinophils (%) (Auto) 2 % (0-3) Basophils (%) (Auto) 0 % (0-3) Neutrophils # (Auto) 3.3 x10^3uL (1.8-7.7) Lymphocytes # (Auto) 0.5 x10^3/uL (1.0-4.8) Monocytes # (Auto) 0.5 x10^3/uL (0.0-1.1) Eosinophils # (Auto) 0.1 x10^3/uL (0.0-0.7) Basophils # (Auto) 0.0 x10^3/uL (0.0-0.2) Sodium Level 141 mmol/L (136-145) Potassium Level 3.9 mmol/L (3.5-5.1) Chloride Level 109 mmol/L (98-107) Carbon Dioxide Level 26 mmol/L (21-32) Anion Gap 6 (6-14) Blood Urea Nitrogen 42 mg/dL (7-20) Creatinine 1.0 mg/dL (0.6-1.0) Estimated GFR (Cockcroft-Gault) 65.2 Glucose Level 158 mg/dL (70-99) Calcium Level 8.9 mg/dL (8.5-10.1) Glucose (Fingerstick) 139 mg/dL (70-99) 165 mg/dL (70-99) 73 mg/dL (70-99) Test 06/20/18 16:52 06/20/18 21:00 06/21/18 07:29 Glucose (Fingerstick) 113 mg/dL (70-99) 236 mg/dL (70-99) 179 mg/dL (70-99) Laboratory Tests Test 06/20/18 10:42 06/20/18 15:24 06/20/18 16:52 06/20/18 21:00 Glucose (Fingerstick) 165 mg/dL (70-99) 73 mg/dL (70-99) 113 mg/dL (70-99) 236 mg/dL (70-99) Test 06/21/18 07:29 Glucose (Fingerstick) 179 mg/dL (70-99) Microbiology 06/11/18 Blood Culture - Final, Complete NO GROWTH AFTER 5 DAYS 06/12/18 Anaerobic/Aerobic Culture - Final, Complete 06/12/18 Anaerobic Culture Result 1 (KEISHA) - Final, Complete 06/12/18 Aerobic Culture - Final, Complete 06/12/18 Aerobic Culture Result 1 (KEISHA) - Final, Complete 06/12/18 Gram Stain - Final, Complete 06/12/18 Gram Stain Result 1 (KEISHA) - Final, Complete 06/12/18 Gram Stain Result 2 (KEISHA) - Final, Complete 06/11/18 Urine Culture - Final, Complete 06/11/18 Urine Culture Result 1 (KEISHA) - Final, Complete 06/11/18 Antimicrobic Susceptibility - Final, Complete Medications Current Medications Albuterol/ Ipratropium (Duoneb) 3 ml 1X ONCE NEB Last administered on 06/11/18at 17:19; Start 06/11/18 at 17:15; Stop 06/11/18 at 17:16; Status DC Ondansetron HCl (Zofran) 4 mg PRN Q8HRS PRN IV NAUSEA/VOMITING; Start 06/11/18 at 19:15; Stop 06/12/18 at 19:14; Status DC Morphine Sulfate (Morphine Sulfate) 4 mg PRN Q2HR PRN IV PAIN; Start 06/11/18 at 19:15; Stop 06/12/18 at 19:14; Status DC Acetaminophen (Tylenol) 650 mg PRN Q4HRS PRN PO FEVER; Start 06/11/18 at 19:15; Stop 06/12/18 at 19:14; Status DC Dextrose (Dextrose 50%-Water Syringe) 12.5 gm PRN Q15MIN PRN IV SEE COMMENTS; Start 06/11/18 at 19:15; Status Cancel Insulin Human Regular (HumuLIN R VIAL) 5 unit 1X ONCE IV Last administered on 06/11/18at 20:11; Start 06/11/18 at 19:30; Stop 06/11/18 at 19:31; Status DC Albuterol Sulfate (Ventolin Neb Soln) 2.5 mg PRN Q6HRS PRN INH SHORTNESS OF BREATH Last administered on 06/12/18 08:37; Start 06/11/18 at 20:45 Atorvastatin Calcium (Lipitor) 20 mg DAILY PO Last administered on 06/21/18 08:43; Start 06/12/18 at 09:00 Calcium Carbonate/ Glycine (Oscal) 500 mg DAILY PO Last administered on 06/21/18 08:45; Start 06/12/18 at 09:00 Furosemide (Lasix) 40 mg DAILY PO Last administered on 06/21/18 08:44; Start 06/12/18 at 09:00 Acetaminophen/ Hydrocodone Bitart (Lortab 5/325) 1 tab PRN Q6HRS PRN PO PAIN Last administered on 06/17/18 13:21; Start 06/11/18 at 20:45 Losartan Potassium (Cozaar) 50 mg DAILY PO Last administered on 06/21/18 08:45; Start 06/12/18 at 09:00 Vitamin D (Vitamin D3) 2,000 unit DAILY PO Last administered on 06/21/18 08:43; Start 06/12/18 at 09:00 Diltiazem HCl (Cardizem 24hr Cd) 240 mg BID PO Last administered on 06/21/18 08:44; Start 06/11/18 at 21:00 Non-Formulary Medication (Everolimus (Afinitor)) 10 mg DAILY PO ; Start 06/12/18 at 09:00; Stop 06/12/18 at 09:00; Status DC Non-Formulary Medication (Exemestane (Aromasin)) 25 mg DAILY PO ; Start 06/12/18 at 09:00; Stop 06/12/18 at 09:00; Status DC Labetalol HCl (Trandate) 200 mg BID PO Last administered on 06/21/18 08:44; Start 06/11/18 at 21:00 Non-Formulary Medication (Metformin Hcl ) 1,000 mg BIDWMEALS PO ; Start 06/12/18 at 08:00; Status UNV Montelukast Sodium (Singulair) 10 mg QHS PO Last administered on 06/20/18 21:00; Start 06/11/18 at 21:00 Naproxen (Naprosyn) 500 mg BID PO Last administered on 06/18/18 22:09; Start 06/11/18 at 21:00 Insulin Human Lispro (HumaLOG) 0-7 UNITS TIDWMEALS SQ Last administered on 06/21/18 09:00; Start 06/12/18 at 08:00 Dextrose (Dextrose 50%-Water Syringe) 12.5 gm PRN Q15MIN PRN IV SEE COMMENTS; Start 06/11/18 at 20:45 Insulin Glargine (Lantus) 7 units QHS SQ Last administered on 06/16/18at 20:51; Start 06/11/18 at 21:45; Stop 06/17/18 at 09:53; Status DC Loperamide HCl (Imodium) 2 mg PRN Q15MIN PRN PO DIARRHEA (1st Choice); Start 06/12/18 at 08:45 Diphenoxylate HCl/ Atropine (Lomotil) 1 tab PRN QID PRN PO DIARRHEA (2nd Choice) Last administered on 06/12/18 10:16; Start 06/12/18 at 08:45 Dronabinol (Marinol) 5 mg BIDACLD PO Last administered on 06/13/18 17:12; Start 06/12/18 at 11:30; Stop 06/14/18 at 12:20; Status DC Albumin Human 500 ml @ 125 mls/hr 1X ONCE IV Last administered on 06/12/18 15:58; Start 06/12/18 at 09:30; Stop 06/12/18 at 13:29; Status DC Pantoprazole Sodium (Protonix) 40 mg DAILYAC PO Last administered on 06/13/18 07:30; Start 06/12/18 at 11:30; Stop 06/13/18 at 11:24; Status DC Zolpidem Tartrate (Ambien) 5 mg PRN QHS PRN PO INSOMNIA; Start 06/12/18 at 11:30 Mirtazapine (Remeron) 7.5 mg QHS PO Last administered on 06/20/18at 21:00; Start 06/12/18 at 21:00 Mesalamine (Delzicol) 800 mg BID PO Last administered on 06/21/18at 08:44; Start 06/12/18 at 15:00 Albuterol Sulfate (Ventolin Neb Soln) 2.5 mg RTQID NEB Last administered on 06/21/18at 07:27; Start 06/12/18 at 16:00 Budesonide (Pulmicort) 0.5 mg RTBID NEB Last administered on 06/21/18at 07:27; Start 06/12/18 at 20:00 Ondansetron HCl (Zofran) 4 mg STK-MED ONCE .ROUTE ; Start 06/14/18 at 11:10; Stop 06/14/18 at 11:11; Status DC Propofol 20 ml @ As Directed STK-MED ONCE IV ; Start 06/14/18 at 11:10; Stop 06/14/18 at 11:11; Status DC Lidocaine HCl (Lidocaine Pf 2% Vial) 5 ml STK-MED ONCE .ROUTE ; Start 06/14/18 at 11:10; Stop 06/14/18 at 11:11; Status DC Sevoflurane (Ultane) 60 ml STK-MED ONCE IH ; Start 06/14/18 at 11:10; Stop 06/14/18 at 11:11; Status DC Fentanyl Citrate (Fentanyl 2ml Vial) 100 mcg STK-MED ONCE .ROUTE ; Start 06/14/18 at 11:10; Stop 06/14/18 at 11:11; Status DC Succinylcholine Chloride (Anectine) 200 mg STK-MED ONCE .ROUTE ; Start 06/14/18 at 11:10; Stop 06/14/18 at 11:11; Status DC Dexamethasone Sodium Phosphate (Decadron) 4 mg STK-MED ONCE .ROUTE ; Start 06/14/18 at 11:10; Stop 06/14/18 at 11:11; Status DC Glycopyrrolate (Robinul) 1 mg STK-MED ONCE .ROUTE ; Start 06/14/18 at 11:11; Stop 06/14/18 at 11:12; Status DC Neostigmine Methylsulfate (Neostigmine Methylsulfate) 5 mg STK-MED ONCE .ROUTE ; Start 06/14/18 at 11:11; Stop 06/14/18 at 11:12; Status DC Rocuronium [place] (Zemuron) 50 mg STK-MED ONCE .ROUTE ; Start 06/14/18 at 11:11; Stop 06/14/18 at 11:12; Status DC Dronabinol (Marinol) 2.5 mg BIDACLD PO ; Start 06/14/18 at 16:30; Stop 06/14/18 at 16:35; Status DC Dronabinol (Marinol) 2.5 mg BIDACLD PO Last administered on 06/19/18at 12:16; Start 06/16/18 at 11:30; Stop 06/19/18 at 14:53; Status DC Amino Acids/ Glycerin/ Electrolytes 1,000 ml @ 80 mls/hr [id number] IV Last administered on 06/17/18at 23:05; Start 06/16/18 at 11:00; Stop 06/18/18 at 10:33; Status DC Cefazolin Sodium 3 gm/Dextrose 100 ml @ 200 mls/hr 1X PREOP PRN IV protocol; Start 06/17/18 at 06:00; Stop 06/17/18 at 15:00; Status Cancel Insulin Glargine (Lantus) 14 units QHS SQ Last administered on 06/17/18at 21:16; Start 06/17/18 at 21:00; Stop 06/18/18 at 12:14; Status DC Insulin Human Lispro (HumaLOG) 5 units TIDWMEALS SQ Last administered on 06/18/18at 09:18; Start 06/17/18 at 12:00; Stop 06/18/18 at 10:34; Status DC Insulin Human Lispro (HumaLOG) 10 units 1X ONCE SQ ; Start 06/17/18 at 10:00; Stop 06/17/18 at 10:01; Status DC Cefazolin Sodium 50 ml @ 100 mls/hr 1X ONCE IV Last administered on 06/17/18at 11:59; Start 06/17/18 at 12:15; Stop 06/17/18 at 12:49; Status DC Bupivacaine HCl (Sensorcaine Mpf 0.5%) 30 ml STK-MED ONCE INJ Last administered on 06/17/18at 12:11; Start 06/17/18 at 12:11; Stop 06/17/18 at 12:49; Status DC Bupivacaine HCl/ Epinephrine Bitart (Sensorcain-Mpf Epi 0.5%-[id number]) 30 ml STK-MED ONCE INJ Last administered on 06/17/18at 12:44; Start 06/17/18 at 12:44; Stop 06/17/18 at 12:49; Status DC Insulin Human Lispro (HumaLOG VIAL) 6 unit 1X ONCE SQ Last administered on 06/17/18at 13:42; Start 06/17/18 at 13:45; Stop 06/17/18 at 13:46; Status DC Ringer's Solution 1,040 ml @ 1,040 mls/hr 1X ONCE IV ; Start 06/17/18 at 14:45; Stop 06/17/18 at 15:44; Status DC Simethicone (Gas-X) 80 mg PRN AFTMEALHC PRN PO GAS / BLOATING Last administered on 06/19/18 08:41; Start 06/17/18 at 15:00 Insulin Human Lispro (HumaLOG) 11 units TIDWMEALS SQ ; Start 06/18/18 at 12:00; Stop 06/18/18 at 14:57; Status DC Insulin Glargine (Lantus) 22 units QHS SQ Last administered on 06/20/18at 21:14; Start 06/18/18 at 21:00 Insulin Human Lispro (HumaLOG) 13 units TIDWMEALS SQ Last administered on 06/21/18 08:59; Start 06/18/18 at 17:00 Dronabinol (Marinol) 5 mg BIDACLD PO Last administered on 06/20/18 16:30; Start 06/19/18 at 16:30 Albumin Human 50 ml @ 50 mls/hr 1X ONCE IV Last administered on 06/19/18at 15:56; Start 06/19/18 at 15:00; Stop 06/19/18 at 15:59; Status DC Furosemide (Lasix) 40 mg 1X ONCE IVP Last administered on 06/19/18at 18:35; Start 06/19/18 at 18:00; Stop 06/19/18 at 18:01; Status DC Active Scripts Active Reported Mag-Oxide (Magnesium Oxide) 400 Mg Tablet Tradjenta (Linagliptin) 5 Mg Tablet Tradjenta (Linagliptin) 5 Mg Tablet Lantus Solostar (Insulin Glargine,Hum.rec.anlog) 100 Unit/1 Ml Insuln.pen Diltiazem 24Hr Cd (Diltiazem HCl) 240 Mg Cap.er.24h Losartan Potassium 50 Mg Tablet Metformin Hcl Er (Metformin Hcl) 500 Mg Tab.er.24h Klor-Con 10 (Potassium Chloride) 10 Meq Tablet.er Atorvastatin Calcium 20 Mg Tablet Furosemide 40 Mg Tablet Mirtazapine 30 Mg Tablet Afinitor (Everolimus) 2.5 Mg Tablet Afinitor (Everolimus) 10 Mg Tablet 10 Mg PO DAILY Aromasin (Exemestane) 25 Mg Tablet 25 Mg PO DAILY Xgeva (Denosumab) 120 Mg/1.7 Ml Vial 120 Mg SQ MONTHLY Aleve (Naproxen Sodium) 220 Mg Tablet 440 Mg PO BID Vitamin D3 (Cholecalciferol (Vitamin D3)) 2,000 Unit Tablet 2,000 Unit PO DAILY Calcium (Calcium Carbonate) 500 Mg Tablet 500 Mg PO DAILY Cardizem Cd (Diltiazem Hcl) 240 Mg Cap.er.24h 1 Cap PO BID Hydrocodone-Apap 5-325 (Hydrocodone Bit/Acetaminophen) 1 Each Tablet 1 Tab PO PRN Q6HRS PRN Metformin Hcl 1,000 Mg Tablet 1,000 Mg PO BIDWMEALS Proair Hfa Inhaler (Albuterol Sulfate) 8.5 Gm Hfa.aer.ad 1 Puff INH PRN Q6HRS PRN Losartan Potassium 50 Mg Tablet 50 Mg PO DAILY Montelukast Sodium Tablet (Montelukast Sodium) 10 Mg Tablet 10 Mg PO HS Labetalol Hcl 200 Mg Tablet 200 Mg PO BID Vitals/I & O Vital Sign - Last 24 Hours 06/20/18 06/20/18 06/20/18 06/20/18 11:00 11:24 15:00 15:03 Temp 97.9 98.3 97.9 98.3 Pulse 97 90 Resp 20 19 B/P (MAP) 115/45 (68) 102/95 (97) Pulse Ox 93 95 95 95 O2 Delivery Room Air Room Air Room Air Room Air 06/20/18 06/20/18 06/20/18 06/20/18 19:00 20:00 21:04 21:18 Temp 97.9 97.9 Pulse 101 100 Resp 19 B/P (MAP) 119/46 (70) 118/48 Pulse Ox 93 95 O2 Delivery Room Air Room Air Room Air 06/20/18 06/20/18 06/21/18 06/21/18 22:37 22:39 03:00 07:00 Temp 99.0 97.9 98.5 99.0 97.9 98.5 Pulse 103 103 97 91 Resp 20 19 20 B/P (MAP) 122/53 122/53 (76) 128/60 (82) 145/59 (87) Pulse Ox 94 94 95 O2 Delivery Nasal Cannula Room Air Room Air O2 Flow Rate 2.0 06/21/18 06/21/18 06/21/18 06/21/18 07:27 07:29 08:44 08:44 Pulse 91 91 B/P (MAP) 145/59 145/59 Pulse Ox 96 96 O2 Delivery Nasal Cannula Nasal Cannula O2 Flow Rate 1.0 1.0 06/21/18 08:45 Pulse 91 B/P (MAP) 145/59 Intake and Output 06/20/18 06/20/18 06/21/18 15:00 23:00 07:00 Intake Total 360 ml Output Total 200 ml Balance 360 ml -200 ml Nutrition Consultation Dietary Evaluation: Recommendations by RD: Increase Calorie Intake, Protein supplementation Comments: PPN d/c'd continue with regular diet Glucerna tid Expected Outcomes/Goals: to meet > 75% est nutr needs- met, goal ongoing Malnutrition Findings: Body Fat Depletion (Non Severe: Mild Depletion Weight Status: Underweight FRANKIE MUNROE MD June 21, 2018 09:28
[2018-06-21] MEDS ORDERED: SIME80TA14 PO (09:30)
[2018-06-21] MEDS ORDERED: MIRT7.5T8 PO (09:30)
[2018-06-21] MEDS ORDERED: DRON2.5C2 PO (09:30)
[2018-06-21] MEDS ORDERED: LOPE2CAP PO (09:30)
[2018-06-21] MEDS ORDERED: MESA400C2 PO (09:30)
[2018-06-21] MEDS ORDERED: ALBU2.5V8 NEB (09:30)
[2018-06-21] MEDS ORDERED: INSU100I11 SQ ×2 (09:30→09:48)
[2018-06-21] MEDS ORDERED: BUDE0.5A NEB (09:30)
[2018-06-21] MEDS ORDERED: INSU100I13 SQ ×2 (09:30→09:39)
--- NOTE | 2018-06-21 09:31 | SNU/HH DC ---
DISCHARGE WITH HOME HEALTH DISCHARGE INFORMATION: Final Diagnosis: Problems Medical Problems: (1) Ascites Status: Acute (2) Cholelithiasis Status: Acute (3) Pleural effusion Status: Acute (4) Shortness of breath Status: Acute Condition on Discharge: Stable CODE STATUS: Code Status: Full HOME HEALTH: Face to Face: I certify this patient is under my care and that I, or a nurse practitioner or physician's social service assistant working with me, had a face to face encounter that meets the physician face to face encounter requirements with this patient on []. RN For Eval/Treatment: Yes Physical Therapy For: Evalulation/Treatment Occupational Therapy For: Evaluation/Treatment Speech Language Pathology For: Evaluation/Treatment Home Health Aide For: Self-care SOCIAL MEDIA DIRECTOR For: Community Resources Pt Meets Homebound Status: Unsteady balance w/ amb, POST DISCHARGE ORDERS: Activity Instructions for Disc: Bedrest today DIET AFTER DISCHARGE: ADA CHECKS AFTER DISCHARGE: Checks after discharge: Check blood press - daily FOLLOW-UP: Follow up with: DR MUNROE TODAY Follow Up With: PCP in 2 weeks TREATMENT/EQUIPMENT ORDERS: Adaptive Equipment Issued: Cane Discharge Respiratory Equipmen: Oxygen CERTIFICATION STATEMENT: Certification Statement: Certification Statement: Based on the above finding, I certify that this patient is confined to the home and needs intermittent prison care, physical therapy and/or speech therapy, or continues to need occupational therapy.~ This patient is under my care, and I have initiated the establishment of the plan of care.~ This patient will be followed by myself or a community physician who will periodically review the plan of care. Home Meds Active Scripts Mesalamine (Delzicol) 400 Mg Cap.drtab., 800 MG PO BID for GI for 30 Days, #120 TAB-CAP Prov:KOSTAS RODRIGUEZ MD 06/21/18 Insulin Lispro (HUMALOG) 100 Unit/1 Ml Insuln.pen, 13 UNITS SQ TIDWMEALS for SUGAR for 30 Days, #1 EACH Prov:KOSTAS RODRIGUEZ MD 06/21/18 Insulin Glargine,Hum.rec.anlog (LANTUS SOLOSTAR) 100 Unit/1 Ml Insuln.pen, 22 UNITS SQ QHS for GLUCOSE for 30 Days, #1 EACH Prov:KOSTAS RODRIGUEZ MD 06/21/18 Dronabinol (DRONABINOL) 2.5 Mg Capsule, 5 MG PO BIDACLD for NAUSEA for 30 Days, #120 CAP Prov:KOSTAS RODRIGUEZ MD 06/21/18 Simethicone (SIMETHICONE) 80 Mg Tab.chew, 80 MG PO PRN AFTMEALHC PRN for GAS / BLOATING for 30 Days, #100 TAB.CHEW Prov:KOSTAS RODRIGUEZ MD 06/21/18 Loperamide Hcl (LOPERAMIDE) 2 Mg Capsule, 2 MG PO PRN Q15MIN PRN for DIARRHEA (1st Choice) for 7 Days, #20 CAP Prov:KOSTAS RODRIGUEZ MD 06/21/18 Budesonide (BUDESONIDE) 0.5 Mg/2 Ml Ampul.neb, 0.5 MG NEB RTBID for COPD for 30 Days, #60 EACH Prov:KOSTAS RODRIGUEZ MD 06/21/18 Mirtazapine (MIRTAZAPINE) 7.5 Mg Tablet, 7.5 MG PO QHS for MOOD for 30 Days, #30 TAB Prov:KOSTAS RODRIGUEZ MD 06/21/18 Albuterol Sulfate (Proair Hfa) 8.5 Gm Hfa.aer.ad, 2.5 MG NEB RTQID for WHEEZING for 30 Days, #1 INHALER Prov:KOSTAS RODRIGUEZ MD 06/21/18 Reported Medications Magnesium Oxide (MAG-OXIDE) 400 Mg Tablet 06/11/18 Linagliptin (Tradjenta) 5 Mg Tablet 06/11/18 Linagliptin (Tradjenta) 5 Mg Tablet 06/11/18 Insulin Glargine,Hum.rec.anlog (LANTUS SOLOSTAR) 100 Unit/1 Ml Insuln.pen 06/11/18 Diltiazem HCl (Diltiazem 24Hr Cd) 240 Mg Cap.er.24h 06/11/18 Losartan Potassium (Losartan Potassium) 50 Mg Tablet 06/11/18 Metformin Hcl (METFORMIN HCL ER) 500 Mg Tab.er.24h 06/11/18 Potassium Chloride (Klor-Con 10) 10 Meq Tablet.er 06/11/18 Atorvastatin Calcium (ATORVASTATIN CALCIUM) 20 Mg Tablet 06/11/18 Furosemide (FUROSEMIDE) 40 Mg Tablet 06/11/18 Mirtazapine (MIRTAZAPINE) 30 Mg Tablet 06/11/18 Everolimus (AFINITOR) 2.5 Mg Tablet 06/11/18 Everolimus (AFINITOR) 10 Mg Tablet, 10 MG PO DAILY for metastatic breast cancer 03/07/18 Exemestane (AROMASIN) 25 Mg Tablet, 25 MG PO DAILY for metastatic breast cancer 03/07/18 Denosumab (XGEVA) 120 Mg/1.7 Ml Vial, 120 MG SQ monthly 03/27/17 Naproxen Sodium (ALEVE) 220 Mg Tablet, 440 MG PO BID, TAB 03/02/17 Cholecalciferol (Vitamin D3) (VITAMIN D3) 2,000 Unit Tablet, 2000 UNIT PO DAILY, TAB 03/01/17 Calcium Carbonate (CALCIUM) 500 Mg Tablet, 500 MG PO DAILY, TAB 03/01/17 Diltiazem Hcl (CARDIZEM CD) 240 Mg Cap.er.24h, 1 CAP PO BID 03/01/17 Hydrocodone Bit/Acetaminophen (HYDROCODONE-APAP 5-325 ) 1 Each Tablet, 1 TAB PO PRN Q6HRS PRN for PAIN 02/06/17 Metformin Hcl (METFORMIN HCL) 1,000 Mg Tablet, 1000 MG PO BIDWMEALS 02/06/17 Albuterol Sulfate (PROAIR HFA INHALER) 8.5 Gm Hfa.aer.ad, 1 PUFF INH PRN Q6HRS PRN for SHORTNESS OF BREATH 02/06/17 Losartan Potassium (LOSARTAN POTASSIUM) 50 Mg Tablet, 50 MG PO DAILY 02/06/17 Montelukast Sodium (MONTELUKAST SODIUM TABLET) 10 Mg Tablet, 10 MG PO HS for FOR ASTHMA 02/06/17 Labetalol Hcl (LABETALOL HCL) 200 Mg Tablet, 200 MG PO BID 02/06/17 KOSTAS RODRIGUEZ MD June 21, 2018 09:31
--- NOTE | 2018-06-21 09:52 | SNU/HH DC ---
DISCHARGE ORDERS DISCHARGE INFORMATION: FINAL DIAGNOSIS Problems Medical Problems: (1) Ascites Status: Acute (2) Cholelithiasis Status: Acute (3) Pleural effusion Status: Acute (4) Shortness of breath Status: Acute CONDITION ON DISCHARGE: Stable CODE STATUS: Code Status: Full ASSISTED: SNF STAY <30 DAYS: Yes HOSPICE: HOSPICE: No HOSPICE EVAL & TREAT: No LTAC: ADMIT TO LTAC: No POST DISCHARGE ORDERS: ACTIVITY ORDERS: Activity as tolerated, Bedrest today DIET AFTER DISCHARGE: ADA CHECKS AFTER DISCHARGE: CHECKS AFTER DISCHARGE: Check blood press - daily FOLLOW-UP: PHYSICIAN FOLLOW-UP: DR MUNROE TODAY ADDITIONAL FOLLOW-UP: PCP in 2 weeks TREATMENT/EQUIPMENT ORDERS: ADAPTIVE EQUIPMENT NEEDED: Cane RESPIRATORY EQUIPMENT NEEDED: Oxygen Physical Therapy For: Evalulation/Treatment Occupational Therapy For: Evaluation/Treatment Speech Language Pathology For: Evaluation/Treatment DISCHARGE MEDICATIONS: Home Meds Active Scripts Insulin Lispro (HUMALOG) 100 Unit/1 Ml Insuln.pen, 13 UNITS SQ TIDWMEALS for DIABETES for 30 Days, #1 EACH Prov:KOSTAS RODRIGUEZ MD 06/21/18 Insulin Glargine,Hum.rec.anlog (LANTUS SOLOSTAR) 100 Unit/1 Ml Insuln.pen, 22 UNITS SQ QHS for DIABETES for 30 Days, #1 EACH Prov:KOSTAS RODRIGUEZ MD 06/21/18 Mesalamine (Delzicol) 400 Mg Cap.drtab., 800 MG PO BID for GI for 30 Days, #120 TAB-CAP Prov:KOSTAS RODRIGUEZ MD 06/21/18 Dronabinol (DRONABINOL) 2.5 Mg Capsule, 5 MG PO BIDACLD for NAUSEA for 30 Days, #120 CAP Prov:KOSTAS RODRIGUEZ MD 06/21/18 Simethicone (SIMETHICONE) 80 Mg Tab.chew, 80 MG PO PRN AFTMEALHC PRN for GAS / BLOATING for 30 Days, #100 TAB.CHEW Prov:KOSTAS RODRIGUEZ MD 06/21/18 Loperamide Hcl (LOPERAMIDE) 2 Mg Capsule, 2 MG PO PRN Q15MIN PRN for DIARRHEA (1st Choice) for 7 Days, #20 CAP Prov:KOSTAS RODRIGUEZ MD 06/21/18 Budesonide (BUDESONIDE) 0.5 Mg/2 Ml Ampul.neb, 0.5 MG NEB RTBID for COPD for 30 Days, #60 EACH Prov:KOSTAS RODRIGUEZ MD 06/21/18 Mirtazapine (MIRTAZAPINE) 7.5 Mg Tablet, 7.5 MG PO QHS for MOOD for 30 Days, #30 TAB Prov:KOSTAS RODRIGUEZ MD 06/21/18 Albuterol Sulfate (Proair Hfa) 8.5 Gm Hfa.aer.ad, 2.5 MG NEB RTQID for WHEEZING for 30 Days, #1 INHALER Prov:KOSTAS RODRIGUEZ MD 06/21/18 Reported Medications Magnesium Oxide (MAG-OXIDE) 400 Mg Tablet 06/11/18 Linagliptin (Tradjenta) 5 Mg Tablet 06/11/18 Diltiazem HCl (Diltiazem 24Hr Cd) 240 Mg Cap.er.24h 06/11/18 Metformin Hcl (METFORMIN HCL ER) 500 Mg Tab.er.24h 06/11/18 Potassium Chloride (Klor-Con 10) 10 Meq Tablet.er 06/11/18 Atorvastatin Calcium (ATORVASTATIN CALCIUM) 20 Mg Tablet 06/11/18 Furosemide (FUROSEMIDE) 40 Mg Tablet 06/11/18 Everolimus (AFINITOR) 2.5 Mg Tablet 06/11/18 Everolimus (AFINITOR) 10 Mg Tablet, 10 MG PO DAILY for metastatic breast cancer 03/07/18 Exemestane (AROMASIN) 25 Mg Tablet, 25 MG PO DAILY for metastatic breast cancer 03/07/18 Denosumab (XGEVA) 120 Mg/1.7 Ml Vial, 120 MG SQ monthly 03/27/17 Naproxen Sodium (ALEVE) 220 Mg Tablet, 440 MG PO BID, TAB 03/02/17 Cholecalciferol (Vitamin D3) (VITAMIN D3) 2,000 Unit Tablet, 2000 UNIT PO DAILY, TAB 03/01/17 Calcium Carbonate (CALCIUM) 500 Mg Tablet, 500 MG PO DAILY, TAB 03/01/17 Hydrocodone Bit/Acetaminophen (HYDROCODONE-APAP 5-325 ) 1 Each Tablet, 1 TAB PO PRN Q6HRS PRN for PAIN 02/06/17 Albuterol Sulfate (PROAIR HFA INHALER) 8.5 Gm Hfa.aer.ad, 1 PUFF INH PRN Q6HRS PRN for SHORTNESS OF BREATH 02/06/17 Losartan Potassium (LOSARTAN POTASSIUM) 50 Mg Tablet, 50 MG PO DAILY 02/06/17 Montelukast Sodium (MONTELUKAST SODIUM TABLET) 10 Mg Tablet, 10 MG PO HS for FOR ASTHMA 02/06/17 Labetalol Hcl (LABETALOL HCL) 200 Mg Tablet, 200 MG PO BID 02/06/17 KOSTAS RODRIGUEZ MD June 21, 2018 09:52
--- NOTE | 2018-06-21 10:42 | PDOC ---
PULMONARY PROGRESS NOTES Subjective PT LESS SOA Vitals Vital Signs Date Time Temp Pulse Resp B/P (MAP) Pulse Ox O2 Delivery O2 Flow Rate FiO2 06/21/18 08:45 91 145/59 06/21/18 07:29 96 Nasal Cannula 1.0 06/21/18 07:00 98.5 20 98.5 ROS: No Nausea, No Chest Pain, No Abdominal Pain, No Increase Cough Lungs: Other (decrease rt side) Cardiovascular: S1, S2 Abdomen: Soft Neuro Exam: Alert Extremities: No Edema Skin: Warm Labs Laboratory Tests Test 06/19/18 11:35 06/19/18 16:33 06/19/18 20:53 06/20/18 02:45 Glucose (Fingerstick) 167 mg/dL (70-99) 138 mg/dL (70-99) 150 mg/dL (70-99) 163 mg/dL (70-99) Test 06/20/18 05:30 06/20/18 07:48 06/20/18 10:42 06/20/18 15:24 White Blood Count 4.5 x10^3/uL (4.0-11.0) Red Blood Count 3.22 x10^6/uL (3.50-5.40) Hemoglobin 8.0 g/dL (12.0-15.5) Hematocrit 25.3 % (36.0-47.0) Mean Corpuscular Volume 78 fL (79-100) Mean Corpuscular Hemoglobin 25 pg (25-35) Mean Corpuscular Hemoglobin Concent 32 g/dL (31-37) Red Cell Distribution Width 19.6 % (11.5-14.5) Platelet Count 230 x10^3/uL (140-400) Neutrophils (%) (Auto) 75 % (31-73) Lymphocytes (%) (Auto) 10 % (24-48) Monocytes (%) (Auto) 12 % (0-9) Eosinophils (%) (Auto) 2 % (0-3) Basophils (%) (Auto) 0 % (0-3) Neutrophils # (Auto) 3.3 x10^3uL (1.8-7.7) Lymphocytes # (Auto) 0.5 x10^3/uL (1.0-4.8) Monocytes # (Auto) 0.5 x10^3/uL (0.0-1.1) Eosinophils # (Auto) 0.1 x10^3/uL (0.0-0.7) Basophils # (Auto) 0.0 x10^3/uL (0.0-0.2) Sodium Level 141 mmol/L (136-145) Potassium Level 3.9 mmol/L (3.5-5.1) Chloride Level 109 mmol/L (98-107) Carbon Dioxide Level 26 mmol/L (21-32) Anion Gap 6 (6-14) Blood Urea Nitrogen 42 mg/dL (7-20) Creatinine 1.0 mg/dL (0.6-1.0) Estimated GFR (Cockcroft-Gault) 65.2 Glucose Level 158 mg/dL (70-99) Calcium Level 8.9 mg/dL (8.5-10.1) Glucose (Fingerstick) 139 mg/dL (70-99) 165 mg/dL (70-99) 73 mg/dL (70-99) Test 06/20/18 16:52 06/20/18 21:00 06/21/18 07:29 Glucose (Fingerstick) 113 mg/dL (70-99) 236 mg/dL (70-99) 179 mg/dL (70-99) Laboratory Tests Test 06/20/18 10:42 06/20/18 15:24 06/20/18 16:52 06/20/18 21:00 Glucose (Fingerstick) 165 mg/dL (70-99) 73 mg/dL (70-99) 113 mg/dL (70-99) 236 mg/dL (70-99) Test 06/21/18 07:29 Glucose (Fingerstick) 179 mg/dL (70-99) Medications Active Scripts Medications Dose Route/Sig Max Daily Dose Days Date Category Mag-Oxide (Magnesium Oxide) 400 Mg Tablet 06/11/18 Reported Tradjenta (Linagliptin) 5 Mg Tablet 06/11/18 Reported Tradjenta (Linagliptin) 5 Mg Tablet 06/11/18 Reported Lantus Solostar (Insulin Glargine,Hum.rec.anlog) 100 Unit/1 Ml Insuln.pen 06/11/18 Reported Diltiazem 24Hr Cd (Diltiazem HCl) 240 Mg Cap.er.24h 06/11/18 Reported Losartan Potassium 50 Mg Tablet 06/11/18 Reported Metformin Hcl Er (Metformin Hcl) 500 Mg Tab.er.24h 06/11/18 Reported Klor-Con 10 (Potassium Chloride) 10 Meq Tablet.er 06/11/18 Reported Atorvastatin Calcium 20 Mg Tablet 06/11/18 Reported Furosemide 40 Mg Tablet 06/11/18 Reported Mirtazapine 30 Mg Tablet 06/11/18 Reported Afinitor (Everolimus) 2.5 Mg Tablet 06/11/18 Reported Afinitor (Everolimus) 10 Mg Tablet 10 Mg PO DAILY 03/07/18 Reported Aromasin (Exemestane) 25 Mg Tablet 25 Mg PO DAILY 03/07/18 Reported Xgeva (Denosumab) 120 Mg/1.7 Ml Vial 120 Mg SQ MONTHLY 03/27/17 Reported Aleve (Naproxen Sodium) 220 Mg Tablet 440 Mg PO BID 03/02/17 Reported Vitamin D3 (Cholecalciferol (Vitamin D3)) 2,000 Unit Tablet 2,000 Unit PO DAILY 03/01/17 Reported Calcium (Calcium Carbonate) 500 Mg Tablet 500 Mg PO DAILY 03/01/17 Reported Cardizem Cd (Diltiazem Hcl) 240 Mg Cap.er.24h 1 Cap PO BID 03/01/17 Reported Hydrocodone-Apap 5-325 (Hydrocodone Bit/Acetaminophen) 1 Each Tablet 1 Tab PO PRN Q6HRS PRN 02/06/17 Reported Metformin Hcl 1,000 Mg Tablet 1,000 Mg PO BIDWMEALS 02/06/17 Reported Proair Hfa Inhaler (Albuterol Sulfate) 8.5 Gm Hfa.aer.ad 1 Puff INH PRN Q6HRS PRN 02/06/17 Reported Losartan Potassium 50 Mg Tablet 50 Mg PO DAILY 02/06/17 Reported Montelukast Sodium Tablet (Montelukast Sodium) 10 Mg Tablet 10 Mg PO HS 02/06/17 Reported Labetalol Hcl 200 Mg Tablet 200 Mg PO BID 02/06/17 Reported Impression . ASSESSMENT: 1. Metastatic breast cancer. 2. Obstructive lung disease with asthma component. 3. History of remote tobacco dependence, in remission. 4. Bilateral effusion, MALIGNANT on left by tap 5. Ascites Plan . OK TO D/C HOME FROM MY PERSPECTIVE THORACENTESIS WHEN SHE BECOMES SYMPTOMATIC VS PLEUR-X CATH LEFT IS MALIGNANT. WILL NEED RIGHT SIDED TAP IN FUTURE TO CONFIRM ITS MALIGNANT TOO BEFORE PLEUR-X CATHETER D/W SON OK WITH DC TO [facility] MD June 21, 2018 10:42
--- NOTE | 2018-06-21 10:45 | NUR ---
SW following pt. Orders faxed to [facility] and packet on chart. Pt and son aware of plan and agreeable. Discussed with RN and Physician.
--- NOTE | 2018-07-30 13:48 | RAD ---
Examination: Frontal view of the chest HISTORY: History of Port-A-Cath placement COMPARISON: 06/11/2018. Findings Low lung volumes and technique accentuates heart size and pulmonary vascularity. Right-sided Port-A-Cath is identified with the tip projecting in the SVC region. Prominent appearing bilateral interstitial lung markings likely congestive changes. Moderate bilateral pleural effusions identified, right greater than left. There are bibasilar lung airspace opacities likely atelectasis or infiltrates. IMPRESSION: 1. Right-sided Port-A-Cath in place. 2. Bilateral pleural effusions, right greater than left. Moderate lung congestive changes. Bibasilar lung airspace opacities likely atelectasis or infiltrates. Electronically signed by: Willy Pepper MD (06/17/2018 1:12 PM) [facility]
--- NOTE | 2018-07-30 13:58 | RAD ---
Examination: Frontal view of the chest HISTORY: History of Port-A-Cath placement COMPARISON: 06/11/2018. Findings Low lung volumes and technique accentuates heart size and pulmonary vascularity. Right-sided Port-A-Cath is identified with the tip projecting in the SVC region. Prominent appearing bilateral interstitial lung markings likely congestive changes. Moderate bilateral pleural effusions identified, right greater than left. There are bibasilar lung airspace opacities likely atelectasis or infiltrates. IMPRESSION: 1. Right-sided Port-A-Cath in place. 2. Bilateral pleural effusions, right greater than left. Moderate lung congestive changes. Bibasilar lung airspace opacities likely atelectasis or infiltrates. Electronically signed by: Willy Pepper MD (06/17/2018 1:12 PM) [facility]
== END 2018-06-21 11:00 | DRG 579 ==
LOC: ER 14:43 → 5 NORTH 18:31
PROVIDERS: ADMIT Internal Medicine; ATTEND Internal Medicine
PROC: 0W9G3ZZ Drainage of Peritoneal Cavity, Percutaneous Approach (ICD-10-PCS; 2018-06-12)
PROC: 0W9B3ZZ Drainage of Left Pleural Cavity, Percutaneous Approach (ICD-10-PCS; 2018-06-12)
PROC: 30233N1 Transfusion of Nonautologous Red Blood Cells into Peripheral Vein, Percutaneous Approach (ICD-10-PCS; 2018-06-15)
PROC: 02HV33Z Insertion of Infusion Device into Superior Vena Cava, Percutaneous Approach (ICD-10-PCS; 2018-06-17)
PROC: B5181ZA Fluoroscopy of Superior Vena Cava using Low Osmolar Contrast, Guidance (ICD-10-PCS; 2018-06-17)
PROC: 0JH63WZ Insertion of Totally Implantable Vascular Access Device into Chest Subcutaneous Tissue and Fascia, Percutaneous Approach (ICD-10-PCS; principal; 2018-06-17 11:00)
DX: C50.912 Malignant neoplasm of unspecified site of left female breast (principal); J96.01 Acute respiratory failure with hypoxia; E43 Unspecified severe protein-calorie malnutrition; C79.51 Secondary malignant neoplasm of bone; R18.8 Other ascites; I50.30 Unspecified diastolic (congestive) heart failure; N17.9 Acute kidney failure, unspecified; J91.0 Malignant pleural effusion; K80.20 Calculus of gallbladder without cholecystitis without obstruction; I11.0 Hypertensive heart disease with heart failure; M81.0 Age-related osteoporosis without current pathological fracture; M19.90 Unspecified osteoarthritis, unspecified site; F41.9 Anxiety disorder, unspecified; E78.5 Hyperlipidemia, unspecified; K21.9 Gastro-esophageal reflux disease without esophagitis; F32.9 Major depressive disorder, single episode, unspecified; J44.9 Chronic obstructive pulmonary disease, unspecified; K52.9 Noninfective gastroenteritis and colitis, unspecified; D50.9 Iron deficiency anemia, unspecified; D63.8 Anemia in other chronic diseases classified elsewhere; E11.65 Type 2 diabetes mellitus with hyperglycemia; Z79.4 Long term (current) use of insulin; Z87.891 Personal history of nicotine dependence; Z92.3 Personal history of irradiation; Z82.49 Family history of ischemic heart disease and other diseases of the circulatory system; Z80.41 Family history of malignant neoplasm of ovary; Z83.3 Family history of diabetes mellitus; Z68.20 Body mass index [BMI] 20.0-20.9, adult
CPT/HCPCS: 32555; 36415; 49083; 74022; 76705; 80048; 80053; 81001; 82150; 82553; 82728; 82945; 82962; 83540; 83550; 83605; 83615; 83690; 83735; 83880; 83986; 84157; 84443; 84484; 85007; 85014; 85018; 85025; 85379; 85610; 85730; 86850; 86900; 86901; 86920; 87040; 87071; 87075; 87086; 87186; 88112; 88305; 89050; 93005; 93306; 94618; 94640; 94760; 96374; A7015; C1788; J0330; J0690; J1100; J1815; J1940; J2001; J2405; J2704; J2710; J3010; J3490; J7613; J7620; J7626; P9016; P9045; P9046; Q0167; 97110; 97116; 97530; 97535; 99285-25

== ENCOUNTER → 2018-06-11 | Outpatient (CLI) | payer OTHER, MEDICARE ==
[2018-05-24 12:16] VITALS: BP 112/62
[~2018-06-11] MED LIST changes: +CONTRAST GIVEN. MC PRN; -HYDROmorphone 2 MG/ML VIAL IV PRN; +IOHEXOL 240 MG/ML 50ML VIAL. PO ONE; +IOHEXOL 300 MG/ML 100ML VIAL. IV ONE; -IV RINGERS,LACTATED 1000ML 1,000 ML IV SCH; -LIDOCAINE 1% PF 2 ML VIAL. ID PRN; -MORPHINE SULFATE 2 MG/ML VIAL. IV PRN; -ONDANSETRON PF 4 MG/2 ML VIAL. IV PRN; -PROCHLORPERAZINE 10 MG/2 ML VIAL. IV PRN; -PROPOFOL 40 ML IV ONE; -fentaNYL PF VIAL 100 MCG/2 ML VIAL IV PRN
--- NOTE | 2018-06-11 14:36 | RAD ---
Examination: CT CHEST ABD PELVIS W/CONTRAST History: BREAST CA, [id number] 75ML, PRIOR SENT, PRIOR REPORT SENT Comparison/Correlation: 02/27/2018 CT chest abdomen and pelvis with contrast Findings: Axial images of the chest, abdomen, and pelvis were obtained following IV contrast. Sagittal and coronal reformatted images were provided. Oral contrast was administered. Right thyroidectomy noted. Moderate-sized right pleural effusion is present. Moderate to large sized left pleural effusion noted. Complete right lower lobe atelectatic consolidation is present. Near complete left lower lobe atelectatic consolidation is evident. Calcified granuloma involves the right lateral mid thoracic level. Minimal lingular atelectasis adjacent to the major fissure noted. Calcified right hilar lymph node evident. Soft tissue density which may represent scarring involving the left axillary region is unchanged. No enlarged thoracic lymph nodes. Calcified granulomas involve the liver and spleen. Moderate to large amount of ascites noted. Gallbladder is mildly distended. No biliary dilatation. Right renal cysts are noted. Pancreas and adrenal glands are normal. Left kidney is unremarkable. Duodenal diverticulum is small in size. Moderate quantity of stool involves the colon. Urinary bladder is unremarkable. Calcified fibroid involvement of the uterus is present. Extensive mixed sclerotic and lytic bony metastatic disease again seen. Midthoracic vertebral body height loss is similar to previous exam. Compression deformity of the L4 superior endplate again seen. Impression: Bilateral pleural effusions are new in the interval development of moderate to large size with significant lower lobe atelectatic consolidation. Extensive bony metastases again seen. PQRS Compliance Statement: One or more of the following individualized dose reduction techniques were utilized for this examination: 1. Automated exposure control 2. Adjustment of the mA and/or kV according to patient size 3. Use of iterative reconstruction technique Electronically signed by: Benitez Smallwood MD (06/11/2018 2:33 PM) [facility]
--- NOTE | 2018-06-11 18:04 | RAD ---
Nuclear medicine whole body bone scan History: breast cancer. Comparison: CT chest abdomen and pelvis with contrast, same day. Whole-body bone scan, February 27, 2018 and December 25, 2017. Technique: Examination performed after intravenous administration of 25 mCi Technetium 99m MDP. Images of the whole body were obtained in the anterior and posterior projections. Findings: There is a new focus of tracer uptake of the calvarium near the left convexity. Previously seen focus near midline on the left has decreased. Tracer uptake of multiple ribs is similar to prior study. Tracer uptake of several lumbar vertebral bodies is similar. Tracer uptake in the upper thoracic spine is stable to increased. Tracer uptake in the superior left acetabulum has increased. Otherwise tracer uptake in the pelvis is unchanged. There is a new tiny focus of tracer uptake of the intertrochanteric left femur. Appendicular skeleton otherwise unremarkable. Tracer distribution in the soft tissues appears normal. IMPRESSION: Osteoblastic metastases. There are new foci in the upper left calvarium, intertrochanteric left femur, and left superior acetabulum. Other sites are stable. Electronically signed by: Cristóbal Mena MD (06/11/2018 6:01 PM) [id number]
== END | disposition home or self-care (01) ==
LOC: NM 10:01
PROVIDERS: ATTEND Internal Medicine Hematology & Oncology
DX: C79.51 Secondary malignant neoplasm of bone (principal); C50.912 Malignant neoplasm of unspecified site of left female breast; J90 Pleural effusion, not elsewhere classified; J98.11 Atelectasis; N28.1 Cyst of kidney, acquired; Z90.89 Acquired absence of other organs; Z87.891 Personal history of nicotine dependence; Z17.0 Estrogen receptor positive status [ER+]
CPT/HCPCS: 71260; 74177; 78306; A9503; Q9966; Q9967

== ENCOUNTER → 2018-07-02 | Outpatient (CLI) | payer OTHER, MEDICARE ==
[2018-06-28 11:30] VITALS: BP 148/68
[~2018-07-02] MED LIST changes: +ALBU2.5V8 NEB; +ATOR20TA58; +BUDE0.5A NEB; +DILT240C82; +DRON2.5C2 PO; +FURO40TA4; +INSU100I11 SQ; +INSU100I13; +INSU100I13 SQ; +LINA5TAB2; +LOPE2CAP PO; +LOSA50TA15; +MAGN400T22; +MESA400C2 PO; +METF500T9; +MIRT30TA3; +MIRT7.5T8 PO; +POTA10TA6; +SIME80TA14 PO; +[UNRECOGNIZED DRUG - CODE]
[2018-07-02 13:36] LABS: BASO % 1 % (0-3); EOS % 3 % (0-3); HEMATOCRIT 30.4 % (36.0-47.0); HEMOGLOBIN 9.6 g/dL (12.0-15.5); LYMPH # 0.2 x10^3/uL (1.0-4.8); LYMPH % 15 % (24-48); MEAN CORPUSCULAR HEMOGLOBIN 26 pg (25-35); MEAN CORPUSCULAR HGB CONC 31 g/dL (31-37); MEAN CORPUSCULAR VOLUME 82 fL (79-100); MONO # 0.1 x10^3/uL (0.0-1.1); MONO % 6 % (0-9); NEUT # 1.1 x10^3uL (1.8-7.7); NEUT % 76 % (31-73); PLATELET COUNT 220 x10^3/uL (140-400); RED BLOOD COUNT 3.73 x10^6/uL (3.50-5.40); RED CELL DISTRIBUTION WIDTH 20.6 % (11.5-14.5)
[2018-07-02 13:48] LABS: WHITE BLOOD COUNT 1.5 x10^3/uL (4.0-11.0)
[2018-07-02 13:59] LABS: ALBUMIN 2.6 g/dL (3.4-5.0); ALBUMIN/GLOBULIN RATIO 0.7 (1.0-1.7); CALCIUM 9.1 mg/dL (8.5-10.1); CREATININE 0.7 mg/dL (0.6-1.0); GFR 98.4; POTASSIUM 3.6 mmol/L (3.5-5.1); TOTAL BILIRUBIN 0.4 mg/dL (0.2-1.0); TOTAL PROTEIN 6.2 g/dL (6.4-8.2)
[2018-07-02 16:00] LABS: % BANDS 2 % (0-9); % EOS 2 % (0-5); % LYMPHS 17 % (24-48); % MONOS 5 % (0-10); % MYELOS 2 % (0-0); % SEGS 72 % (35-66)
[2018-07-02 16:03] LABS: ANISOCYTOSIS MOD; HYPOCHROMIA SLIGHT; PLT ESTIMATE ADEQUATE (ADEQUATE)
== END | disposition home or self-care (01) ==
LOC: LAB 12:48
PROVIDERS: ATTEND Internal Medicine Hematology & Oncology
DX: C79.81 Secondary malignant neoplasm of breast (principal); C34.11 Malignant neoplasm of upper lobe, right bronchus or lung
CPT/HCPCS: 36415; 80053; 85007; 85025

== ENCOUNTER → 2018-09-03 | Outpatient (CLI) | payer MEDICARE, OTHER ==
[2018-08-23 12:08] VITALS: BP 136/53
[~2018-09-03] MED LIST changes: +GADOTERATE 7.5 MMOL/15ML VIAL. IVP ONE; +MONT10TA49 PO; -MONT10TA9 PO
--- NOTE | 2018-09-03 14:41 | RAD ---
Examination: MRI of the left shoulder without and with IV contrast HISTORY: History of increasing left shoulder pain, history of breast cancer COMPARISON: None available TECHNIQUE: Multiplanar, multisequence MR imaging of the left shoulder were performed without and with IV contrast. Contrast used was 10 mL of Dotarem FINDINGS: The long head of the biceps tendon within the bicipital groove. The attachment of the long head the biceps tendon to the superior labral anchor grossly appears intact. The attachment of the subscapularis tendon grossly appears intact. There is increased signal identified in the bursal sided fibers of the supraspinatus tendon likely bursal sided fraying. There is increased signal identified in the undersurface fibers of the supraspinatus tendon anteriorly could be partial undersurface tear. Examination is very limited due to significant motion artifact. There is grayT1 signal with varying T2 signal identified in the proximal humerus shaft with foci of enhancement on the postcontrast images. Cortical disruption is not evident. The visualized labrum grossly appears unremarkable. Moderate degenerative changes identified in the glenohumeral joint, acromioclavicular joint. IMPRESSION: 1. Very limited examination due to significant motion artifact. 2. Partial undersurface tear and bursal sided fraying of the supraspinatus tendon. 3. Signal changes identified in the proximal humeral shaft suspicious for metastasis. Consider bone scan for further evaluation. Electronically signed by: Willy Pepper MD (09/03/2018 2:38 PM) [facility]
== END | disposition home or self-care (01) ==
LOC: MRI 14:26
PROVIDERS: ATTEND Internal Medicine Hematology & Oncology
DX: M19.012 Primary osteoarthritis, left shoulder (principal); M75.102 Unspecified rotator cuff tear or rupture of left shoulder, not specified as traumatic; Z85.3 Personal history of malignant neoplasm of breast
CPT/HCPCS: 73223; A9575

== ENCOUNTER → 2018-09-05 | Outpatient (CLI) | payer OTHER, MEDICARE ==
[2018-08-23 12:08] VITALS: BP 136/53
[~2018-09-05] MED LIST changes: +CONTRAST GIVEN. MC PRN; -GADOTERATE 7.5 MMOL/15ML VIAL. IVP ONE; +IOHEXOL 240 MG/ML 50ML VIAL. PO ONE; +IOHEXOL 300 MG/ML 100ML VIAL. IV ONE
--- NOTE | 2018-09-05 11:37 | RAD ---
PQRS Compliance statement: One or more of the following individualized dose reduction techniques were utilized for this examination: 1. Automated exposure control. 2. Adjustment of the mA and/or kV according to patient size. 3. Use of iterative reconstruction technique. Indication:Breast cancer. TECHNIQUE: CT chest, abdomen and pelviswith IV contrast with multiplanar reformats. COMPARISON: 06/11/2018. FINDINGS: Heart is normal in size. No pericardial effusion. Moderate stable bilateral pleural effusions are seen. Right chest wall Chemo-Port with its tip in SVC. No enlarged axillary or mediastinal lymph nodes. No hilar adenopathy. Calcified right hilar lymph nodes are seen. Enhancing left breast lesion measuring 1.2 x 1.1 cm. Consolidations are seen in the bilateral lung bases. Large calcified granuloma in the right upper lobe. Diffuse multifocal osseous metastasis in the chest. Liver, spleen, gallbladder, pancreas, adrenals within normal limits. Simple cyst in the right kidney measuring 2.7 cm. No nephrolithiasis or hydronephrosis. Moderate scattered atherosclerotic plaque in the abdominal aorta. No bowel obstruction. Urinary bladder demonstrates circumferential wall thickening. Calcified fibroids in the uterine fundus. No pneumoperitoneum. Diffuse osseous metastasis. Stable compression deformity of the superior aspect of the L4 vertebral body. IMPRESSION: 1. Stable bilateral moderate pleural effusions. 2. Enhancing left breast nodule. Clinically correlate with mammography. 3. Diffuse osseous metastasis. Electronically signed by: Boby Parks DO (09/05/2018 11:34 AM) [facility]
--- NOTE | 2018-09-05 17:02 | RAD ---
Whole body bone scan Clinical indications: Breast cancer. COMPARISON: June 11, 2018 bone scan. TECHNIQUE: After IV infusion of 25 mCi of technetium 99m MDP, delayed anterior and posterior planar images of the whole skeleton were performed. FINDINGS: Bilateral renal function is evident. Radiotracer uptake is seen within the thoracic spine and lumbar spine and upper sacrum and both sides of the pelvis and rib cage bilaterally and the upper medial left scapula and the intertrochanteric area of the proximal right femur and intertrochanteric area of the proximal left femur which are unchanged. The previously seen area of uptake involving the upper right calvarium is not evident today. No new osseous uptake is seen. IMPRESSION: Osseous metastatic disease. No new osseous lesion is seen. Osseous lesion seen within the upper right calvarium on the previous study is not evident today. The other areas are stable. Electronically signed by: Reece Masterson MD (09/05/2018 4:59 PM) [facility]
== END | disposition home or self-care (01) ==
LOC: NM 09:05
PROVIDERS: ATTEND Internal Medicine Hematology & Oncology
DX: C79.51 Secondary malignant neoplasm of bone (principal); C50.912 Malignant neoplasm of unspecified site of left female breast; J90 Pleural effusion, not elsewhere classified; J98.4 Other disorders of lung; J84.10 Pulmonary fibrosis, unspecified; N64.89 Other specified disorders of breast; N63.20 Unspecified lump in the left breast, unspecified quadrant; N28.1 Cyst of kidney, acquired; I70.0 Atherosclerosis of aorta; M43.8X6 Other specified deforming dorsopathies, lumbar region; Z17.0 Estrogen receptor positive status [ER+]
CPT/HCPCS: 71260; 74177; 78306; A9503; Q9966; Q9967

== ENCOUNTER → 2018-09-27 | Outpatient (CLI) | payer OTHER, MEDICARE ==
[2018-09-20 11:25] VITALS: BP 113/54
[~2018-09-27] MED LIST changes: -CONTRAST GIVEN. MC PRN; -IOHEXOL 240 MG/ML 50ML VIAL. PO ONE; -IOHEXOL 300 MG/ML 100ML VIAL. IV ONE
--- NOTE | 2018-09-27 13:15 | RAD ---
Indication: Effusion. Shortness of breath. TECHNIQUE: 2 views of the chest COMPARISON: 06/27/2018 FINDINGS: Right chest wall Chemo-Port is seen with its tip in the SVC. Heart is normal in size. Blunting of the bilateral costophrenic angles are seen with consolidation in the bilateral lung bases. No pneumothorax. Visualized bony thorax is within normal limits. IMPRESSION: Small to moderate right and small left pleural effusion. Underlying consolidations in the lung bases may be secondary to passive atelectasis although underlying pneumonia is not ruled out. Electronically signed by: Boby Parks DO (09/27/2018 1:12 PM) [facility]
== END | disposition home or self-care (01) ==
LOC: RAD 11:18
PROVIDERS: ATTEND Internal Medicine Pulmonary Disease
DX: C41.9 Malignant neoplasm of bone and articular cartilage, unspecified (principal); J90 Pleural effusion, not elsewhere classified; Z92.21 Personal history of antineoplastic chemotherapy
CPT/HCPCS: 71046

== ENCOUNTER → 2018-10-02 | Outpatient (CLI) | payer OTHER, MEDICARE ==
[2018-09-20 11:25] VITALS: BP 113/54
--- NOTE | 2018-10-02 12:34 | RAD ---
Three-view left shoulder study Clinical indications: Left shoulder pain. FINDINGS: No acute fracture or dislocation or lytic process is seen. No AC joint separation is seen. Mild primary degenerative osteoarthritis of the AC joint is seen. Spurring of the AC joint and inferior acromial process is seen. These findings may impinge the acromial humeral space resulting in rotator cuff disease. Old healed posterior left fourth rib fracture is evident. IMPRESSION: No acute osseous abnormality. Electronically signed by: Reece Masterson MD (10/02/2018 12:31 PM) [facility]
== END | disposition home or self-care (01) ==
LOC: RAD 10:21
PROVIDERS: ATTEND Orthopaedic Surgery
DX: M19.012 Primary osteoarthritis, left shoulder (principal); M75.92 Shoulder lesion, unspecified, left shoulder
CPT/HCPCS: 73030

== ENCOUNTER 2018-10-11 11:00 | Outpatient (CLI) | payer OTHER, MEDICARE ==
[~2018-10-11] VITALS: Ht 157.5 cm; Wt 49.9 kg
[~2018-10-11 11:00] MED LIST changes: -ATOR20TA58; +ATOR20TA58 PO; +METF500T11; -METF500T9
[2018-10-11 11:26] VITALS: BP 194/72
[2018-10-11 11:43] LABS: BASO % 0 % (0-3); EOS % 1 % (0-3); HEMATOCRIT 27.5 % (36.0-47.0); LYMPH # 0.4 x10^3/uL (1.0-4.8); LYMPH % 11 % (24-48); MEAN CORPUSCULAR HEMOGLOBIN 28 pg (25-35); MEAN CORPUSCULAR HGB CONC 33 g/dL (31-37); MEAN CORPUSCULAR VOLUME 86 fL (79-100); MONO # 0.4 x10^3/uL (0.0-1.1); MONO % 12 % (0-9); NEUT # 2.6 x10^3/uL (1.8-7.7); NEUT % 75 % (31-73); RED BLOOD COUNT 3.19 x10^6/uL (3.50-5.40); RED CELL DISTRIBUTION WIDTH 23.1 % (11.5-14.5); WHITE BLOOD COUNT 3.4 x10^3/uL (4.0-11.0)
[2018-10-11 11:54] LABS: PROTHROMBIN TIME PATIENT 13.8 SEC (11.7-14.0)
[2018-10-11 12:01] LABS: CALCIUM 10.8 mg/dL (8.5-10.1); CREATININE 0.6 mg/dL (0.6-1.0); GFR 117.6; POTASSIUM 4.6 mmol/L (3.5-5.1)
[2018-10-11 12:05] LABS: PLATELET COUNT 160 x10^3/uL (140-400)
[2018-10-11 12:06] LABS: ALBUMIN 2.7 g/dL (3.4-5.0); ALBUMIN/GLOBULIN RATIO 0.8 (1.0-1.7); TOTAL BILIRUBIN 0.3 mg/dL (0.2-1.0); TOTAL PROTEIN 6.3 g/dL (6.4-8.2)
[2018-10-11 12:26] LABS: PLT ESTIMATE ADEQUATE (ADEQUATE)
[2018-10-11 12:27] LABS: ANISOCYTOSIS SLIGHT; TEAR DROP CELLS OCC
[2018-10-11 12:33] VITALS: BP 171/74
[2018-10-11 12:39] VITALS: BP 140/65
[2018-10-11 12:50] VITALS: BP 143/58
[2018-10-11 13:16] VITALS: BP 154/61
--- NOTE | 2018-10-11 13:38 | NUR ---
CHEST X-RAY COMPLETE. pT OF TO DISCHARGE PER DR. Davila. iNSTRUCTIONS REVIEWED WITH FAMILY AND PT. pT DISCHARGED TO HOME
--- NOTE | 2018-10-11 14:25 | RAD ---
Indication:Postthoracentesis. TECHNIQUE:Portable AP chest X-ray COMPARISON: 09/27/2018. FINDINGS: Stable position of right chest wall Chemo-Port. Heart is normal in size. Blunting of the bilateral costophrenic angles, improved on the right side. No pneumothorax. Visualized bony thorax within normal limits. Patchy opacity in the right lung base. IMPRESSION: Improvement in previously seen right pleural effusion. Stable small left pleural effusion. Patchy opacity in the right lung base may be secondary to atelectasis or pneumonia. Electronically signed by: Boby Parks DO (10/11/2018 2:22 PM) [facility]
--- NOTE | 2018-10-11 15:23 | RAD ---
Ultrasound-guided right-sided thoracentesis 10/11/2018 3:19 PM Indication: Right Pleural Effusion Procedure: Informed consent was obtained. A timeout procedure was performed. Sonographic evaluation of the right chest was performed demonstrating moderate pleural effusion. The right posterior chest was prepped and draped in sterile fashion. 1% lidocaine without epinephrine was administered for local anesthesia. Real-time ultrasonographic guidance was used in passing a 5 [place] Ide[place]ode[place] catheter into the right pleural space. 1.1 L of serosanguineous pleural fluid was removed. Samples of fluid were sent to the lab for further evaluation per ordering physician request. The catheter was removed and pressure held to achieve hemostasis. A sterile dressing was applied. No immediate complications were identified. The patient tolerated the procedure well. Impression: Right sided ultrasound-guided thoracentesis
[2018-10-15] MEDS ORDERED: OXYC1TAB15 PO (15:37)
[2018-10-15] MEDS ORDERED: DILT240C2 PO (15:37)
[2018-10-15] MEDS ORDERED: LOSA-73 PO (15:37)
[2018-10-15] MEDS ORDERED: [UNRECOGNIZED DRUG - OTHER] IV (15:37)
[2018-10-15] MEDS ORDERED: LABE200T4 PO (15:37)
[2018-10-15] MEDS ORDERED: SPIR25TA PO (15:37)
== END 2018-10-11 13:53 | disposition home or self-care (01) ==
LOC: INTRAD 11:00
PROVIDERS: ATTEND Radiology Radiation Oncology
DX: J90 Pleural effusion, not elsewhere classified (principal)
CPT/HCPCS: 32555; 36415; 71045; 80053; 85025; 85610

== ENCOUNTER → 2018-10-17 | Outpatient (CLI) | payer OTHER, MEDICARE ==
[2018-10-11 13:16] VITALS: BP 154/61
[~2018-10-17] MED LIST changes: -METF500T11; +METF500T9; +OXYC1TAB15 PO; +SPIR25TA PO; +[UNRECOGNIZED DRUG - OTHER] IV
--- NOTE | 2018-10-17 15:54 | RAD ---
Chest radiograph 10/17/2018 12:00 AM INDICATION: Increased shortness of breath COMPARISON: 10/11/2018 TECHNIQUE: Frontal and lateral views of the chest are provided. FINDINGS: The cardiomediastinal silhouette is similar in appearance. Increase in small to moderate right pleural effusion. Stable small left pleural effusion. There is bibasilar atelectasis and/or infiltrates. No pulmonary vascular congestion or pneumothorax. There may be new airspace consolidation in the lateral left upper lobe. IMPRESSION: 1. Worsening small to moderate right pleural effusion with adjacent compressive atelectasis versus infiltrate. 2. Increased patchy opacity in the left upper lobe may represent atelectasis versus developing infiltrate. Short-term follow-up radiograph is recommended. Electronically signed by: Socorro Santana MD (10/17/2018 3:51 PM) [facility]
== END | disposition home or self-care (01) ==
LOC: RAD 14:24
PROVIDERS: ATTEND Internal Medicine Hematology & Oncology
DX: C50.912 Malignant neoplasm of unspecified site of left female breast (principal); Z17.0 Estrogen receptor positive status [ER+]; J90 Pleural effusion, not elsewhere classified
CPT/HCPCS: 71046

== ENCOUNTER → 2018-10-24 | Outpatient (CLI) | payer OTHER, MEDICARE ==
[2018-10-18 12:57] VITALS: BP 118/71
[~2018-10-24] MED LIST changes: +BUDE10.2 IH; +BUME1TAB3 PO; +DRON5CAP PO; +INSU100C SQ; +METF500T11; -METF500T9
--- NOTE | 2018-10-24 17:47 | RAD ---
CHEST PA LATERAL History: Malignant neoplasm of the left breast. Pleural effusion. COMPARISON: October 17, 2018 FINDINGS: Right chest wall port is again seen. [id number] right pleural effusion appears similar as the subjacent infiltrates/atelectasis. Smaller left pleural effusion is stable as is mild atelectasis and infiltrate in the left lung base. No new consolidation is identified. No definite pneumothorax, the right apex is obscured by the patient's neck and chin. Left or fracture again noted. IMPRESSION: Stable pleural effusions and basilar infiltrates/atelectasis. Electronically signed by: Stevo Rhodes MD (10/24/2018 5:44 PM) [facility]
== END | disposition home or self-care (01) ==
LOC: RAD 14:20
PROVIDERS: ATTEND Internal Medicine Hematology & Oncology
DX: C50.912 Malignant neoplasm of unspecified site of left female breast (principal); Z17.0 Estrogen receptor positive status [ER+]; J90 Pleural effusion, not elsewhere classified
CPT/HCPCS: 71046

== ENCOUNTER 2018-10-25 11:58 | Inpatient (IN) | payer MEDICARE ==
[~2018-10-25] VITALS: Ht 160 cm; Wt 54.4 kg
[~2018-10-25 11:58] MED LIST changes: -BUDE10.2 IH; -BUME1TAB3 PO; -DRON5CAP PO; -INSU100C SQ
[2018-10-25] MEDS ORDERED: LIDOCAINE/EPI/TETRACAINE TOPICAL GEL 3 ML. TP ONE ×3 (12:24→16:00)
--- NOTE | 2018-10-25 12:28 | EKG ---
[facility] [address] [place] [address] Test Date: 2018-10-25 Test Time: 12:12:34 Pat Name: JAYLEEN MOTLEY Department: Room: Gender: F Title I Director: : 1940 Requested By: MARIAH BROWN Order Number: [id number] Reading MD: Measurements Intervals [place] Rate: 100 P: 27 WA: 120 QRS: -2 QRSD: 78 T: 45 QT: 284 QTc: 369 Interpretive Statements SINUS RHYTHM LEFTWARD AXIS NO SPECIFIC ECG ABNORMALITIES RI6.01 No previous ECG available for comparison
--- NOTE | 2018-10-25 13:03 | PHYS DOC ---
Past Medical History Past Medical History: Cancer, Diabetes-Type II, Hypertension, Other Additional Past Medical Histor: breast cancer mets to bone Past Surgical History: Other Additional Past Surgical Histo: throid tumor, left breast and lymphnodes Alcohol Use: None Drug Use: None Adult General Chief Complaint Chief Complaint: ABNORMAL LABS [facility] HPI Patient is a 78 year old female with history of diabetes type 2, hypertension, left breast cancer with metastatic disease to the bones last chemotherapy treatment on Sunday last week and radiation yesterday who presents to the ED today stating she received a phone call from the doctor's office to come to the ED and be admitted for high calcium. Patient is in the Ed with 4 very overbearing family members doing most of the talking. She has no complaints Review of Systems Review of Systems Constitutional: Denies fever or chills [] Eyes: Denies change in visual acuity, redness, or eye pain [] HENT: Denies nasal congestion or sore throat [] Respiratory: Denies cough or shortness of breath [] Cardiovascular: Reports hypercalcemia. No additional information not addressed in HPI [] GI: Denies abdominal pain, nausea, vomiting, bloody stools or diarrhea [] : Denies dysuria or hematuria [] Musculoskeletal: Denies back pain or joint pain [] Integument: Denies rash or skin lesions [] Neurologic: Denies headache, focal weakness or sensory changes [] All other systems were reviewed and found to be within normal limits, except as documented in this note. Current Medications Current Medications Current Medications Medications (Trade) Dose Ordered Sig/Rodríguez Start Time Stop Time Status Last Admin Dose Admin Acetaminophen/ Hydrocodone Bitart (Lortab 5/325) 1 tab 1X ONCE 10/25/18 13:15 10/25/18 13:16 DC 10/25/18 12:49 1 TAB Lidocaine/ Epinephrine (Let Topical) 3 ml 1X ONCE 10/25/18 12:30 10/25/18 12:34 DC 10/25/18 12:38 3 ML Allergies Allergies Allergies Coded Allergies Type Severity Reaction Last Updated Verified No Known Drug Allergies 09/20/18 No Physical Exam Physical Exam Constitutional: Denied she hadn't patient. No acute distress HENT: Normocephalic, atraumatic, bilateral external ears normal, oropharynx moist, no oral exudates, nose normal. [] Eyes: PERRLA, EOMI, conjunctiva normal, no discharge. [] Neck: Normal range of motion, no tenderness, supple, no stridor. [] Cardiovascular:Heart rate regular rhythm, no murmur [] Lungs & Thorax: Patient on oxygen chronically. Bilateral breath sounds clear to auscultation [] Abdomen: Bowel sounds normal, soft, no tenderness, no masses, no pulsatile masses. [] Skin: Warm, dry, no erythema, no rash. Lymph edema noted to the left upper extremity. Back: No tenderness, no CVA tenderness. [] Extremities: No tenderness, no cyanosis, no clubbing, ROM intact, no edema. [] Neurologic: Alert and oriented X 3, normal motor function, normal sensory function, no focal deficits noted. [] Psychologic: Affect normal, judgement normal, mood normal. [] Current Patient Data Vital Signs Vital Signs Date Time Temp Pulse Resp B/P (MAP) Pulse Ox O2 Delivery O2 Flow Rate FiO2 10/25/18 12:49 18 96 Nasal Cannula 2.0 10/25/18 12:03 98.2 98 142/63 (89) 98.2 EKG EKG [address] West sinus rhythm HR 100 no STEMI[] Radiology/Procedures Radiology/Procedures [] Course & Med Decision Making Course & Med Decision Making Pertinent Labs and Imaging studies reviewed. (See chart for details) This is a 78-year-old female patient with history of left breast cancer who presents to be admitted for hypercalcemia. [address] Millan, he states patient's calcium was 12.7 and would like nephrology consulted to manage it. I spoke with Dr. Lyons who requested we start IV fluids and admit patient under the hospitalist. [address] Smith who accepted patient for admission Dragon Disclaimer Dragon Disclaimer This electronic medical record was generated, in whole or in part, using a voice recognition dictation system. Departure Departure Impression: Primary Impression: Hypercalcemia Disposition: ADMITTED INPATIENT Condition: STABLE Referrals: AILEEN MARTINS (PCP) MARIAH BROWN APRN Oct 25, 2018 13:03
[2018-10-25] MEDS ORDERED: HYDROcodone/APAP 5/325MG 1 TAB TABLET PO ONE (13:15)
[2018-10-25] MEDS ORDERED: IV NORMAL SALINE 1000ML BAG 1,000 ML IV ONE (13:45)
[2018-10-25] MEDS ORDERED: ONDANSETRON PF 4 MG/2 ML VIAL. IV PRN (13:45)
[2018-10-25] MEDS ORDERED: MORPHINE SULFATE 4 MG/ML VIAL. IV PRN (13:45)
[2018-10-25] MEDS ORDERED: ACETAMINOPHEN 325 MG TABLET. PO PRN (13:45)
[2018-10-25 13:54] LABS: BASO % 0 % (0-3); EOS % 1 % (0-3); HEMATOCRIT 24.6 % (36.0-47.0); HEMOGLOBIN 7.9 g/dL (12.0-15.5); LYMPH # 0.3 x10^3/uL (1.0-4.8); LYMPH % 10 % (24-48); MEAN CORPUSCULAR HEMOGLOBIN 28 pg (25-35); MEAN CORPUSCULAR HGB CONC 32 g/dL (31-37); MEAN CORPUSCULAR VOLUME 86 fL (79-100); MONO # 0.2 x10^3/uL (0.0-1.1); MONO % 8 % (0-9); NEUT # 2.1 x10^3/uL (1.8-7.7); NEUT % 81 % (31-73); PLATELET COUNT 233 x10^3/uL (140-400); RED BLOOD COUNT 2.87 x10^6/uL (3.50-5.40); RED CELL DISTRIBUTION WIDTH 22.5 % (11.5-14.5); WHITE BLOOD COUNT 2.6 x10^3/uL (4.0-11.0)
[2018-10-25 14:06] LABS: CALCIUM 11.9 mg/dL (8.5-10.1); CREATININE 0.7 mg/dL (0.6-1.0); GFR 98.4
[2018-10-25 14:12] LABS: ALBUMIN 2.3 g/dL (3.4-5.0); ALBUMIN/GLOBULIN RATIO 0.7 (1.0-1.7); TOTAL BILIRUBIN 0.2 mg/dL (0.2-1.0); TOTAL PROTEIN 5.8 g/dL (6.4-8.2)
[2018-10-25 14:33] LABS: % BANDS 1 % (0-9); % EOS 2 % (0-5); % LYMPHS 11 % (24-48); % METAS 2 % (0-0); % MONOS 3 % (0-10); % SEGS 81 % (35-66)
[2018-10-25 14:34] LABS: ANISOCYTOSIS MOD; HYPOCHROMIA PRESENT; PLT ESTIMATE ADEQUATE (ADEQUATE); POIKILOCYTOSIS PRESENT; POLYCHROMASIA PRESENT
[2018-10-25 16:20] VITALS: BP 140/55
[2018-10-25] MEDS ORDERED: BUME1TAB3 PO (17:01)
[2018-10-25] MEDS ORDERED: DRON5CAP PO (17:01)
[2018-10-25] MEDS ORDERED: BUDE10.2 IH (17:01)
[2018-10-25] MEDS ORDERED: HYDR-2761 PO (17:01)
[2018-10-25] MEDS ORDERED: INSU100C SQ (17:04)
[2018-10-25] MEDS ORDERED: INSU100I13 SQ (17:04)
[2018-10-25] MEDS ORDERED: BUMETANIDE 1 MG TABLET. PO PRN (17:15)
[2018-10-25] MEDS ORDERED: IV DEXTROSE 5% 250 ML BAG. IV PRN (17:15)
[2018-10-25] MEDS ORDERED: SPIRONOLACTONE 25 MG TABLET PO PRN (17:15)
[2018-10-25] MEDS ORDERED: POLYETHYLENE GLYCOL 3350 17 GM PACKET. PO PRN (17:30)
[2018-10-25] MEDS: LOSARTAN POTASSIUM 50 MG TABLET. PO SCH (17:30)
[2018-10-25] MEDS: DRONABINOL 2.5 MG CAPSULE. PO SCH (17:30)
[2018-10-25] MEDS: IV NORMAL SALINE 1000ML BAG 1,000 ML IV SCH ×2 (17:30→23:24)
[2018-10-25] MEDS ORDERED: DOCUSATE SODIUM 100 MG CAPSULE. PO PRN (18:15)
[2018-10-25] MEDS: INSULIN LISPRO 300 UNITS/3 ML VIAL. SQ SCH ×2 (18:23)
[2018-10-25 19:00] VITALS: BP 147/57
--- NOTE | 2018-10-25 19:56 | PDOC1 ---
History and Physical Date of Admission Date of Admission DATE: 10/25/18 TIME: 19:54 History of Present Illness History of Present Illness Patient is a 78 year old female with history of diabetes type 2, hypertension, left breast cancer with metastatic disease to the bones last chemotherapy treatment on Sunday last week and radiation yesterday who presents to the ED today stating she received a phone call from the doctor's office to come to the ED and be admitted for high calcium. Patient is in the Ed with 4 very overbearing family members doing most of the talking. She has no complaints Past Medical History Cardiovascular: HTN, Hyperlipidemia Pulmonary: Asthma Heme/Onc: Cancer Psych: Anxiety, Depression Endocrine: Diabetes Past Surgical History Past Surgical History: Mastectomy Family History Family History: Cancer Social History Smoke: No ALCOHOL: none Drugs: None Current Problem List Problem List Problems Medical Problems: (1) Hypercalcemia Status: Acute Current Medications Current Medications Current Medications Lidocaine/ Epinephrine (Let Topical) 3 ml STK-MED ONCE TP ; Start 10/25/18 at 12:24; Stop 10/25/18 at 12:24; Status DC Lidocaine/ Epinephrine (Let Topical) 3 ml 1X ONCE TP Last administered on 10/25/18at 12:38; Start 10/25/18 at 12:30; Stop 10/25/18 at 12:34; Status DC Acetaminophen/ Hydrocodone Bitart (Lortab 5/325) 1 tab 1X ONCE PO Last administered on 10/25/18at 12:49; Start 10/25/18 at 13:15; Stop 10/25/18 at 13:16; Status DC Ondansetron HCl (Zofran) 4 mg PRN Q8HRS PRN IV NAUSEA/VOMITING; Start 10/25/18 a t 13:45; Stop 10/26/18 at 13:44 Morphine Sulfate (Morphine Sulfate) 4 mg PRN Q2HR PRN IV PAIN; Start 10/25/18 at 13:45; Stop 10/26/18 at 13:44 Acetaminophen (Tylenol) 650 mg PRN Q4HRS PRN PO FEVER; Start 10/25/18 at 13:45; Stop 10/26/18 at 13:44 Sodium Chloride 1,000 ml @ 125 mls/hr 1X ONCE IV Last administered on 10/25/18at 13:52; Start 10/25/18 at 13:45; Stop 10/25/18 at 21:44 Lidocaine/ Epinephrine (Let Topical) 3 ml 1X ONCE TP Last administered on 10/25/18at 15:58; Start 10/25/18 at 16:00; Stop 10/25/18 at 16:01; Status DC Albuterol Sulfate (Ventolin Neb Soln) 2.5 mg RTQID NEB ; Start 10/25/18 at 20:00 Atorvastatin Calcium (Lipitor) 20 mg QHS PO ; Start 10/25/18 at 21:00 Bumetanide (Bumex) 0.5 mg PRN DAILY PRN PO EDEMA; Start 10/25/18 at 17:15 Diltiazem HCl (Cardizem 24hr Cd) 240 mg DAILY PO ; Start 10/25/18 at 17:30 Acetaminophen/ Hydrocodone Bitart (Lortab 5/325) 1 tab PRN Q6HRS PRN PO PAIN; Start 10/25/18 at 17:15 Labetalol HCl (Trandate) 200 mg BID PO ; Start 10/25/18 at 21:00 Losartan Potassium (Cozaar) 50 mg DAILY PO ; Start 10/25/18 at 17:30 Spironolactone (Aldactone) 25 mg PRN DAILY PRN PO EDEMA; Start 10/25/18 at 17:15 Budesonide (Pulmicort) 0.5 mg RTBID NEB ; Start 10/25/18 at 20:00 Vitamin D (Vitamin D3) 2,000 unit DAILY PO ; Start 10/26/18 at 09:00 Dronabinol (Marinol) 5 mg TIDAC PO ; Start 10/25/18 at 17:30 Insulin Glargine (Lantus Syringe) 25 unit QHS SQ ; Start 10/25/18 at 21:00 Insulin Human Lispro (HumaLOG) 15 units TIDWMEALS SQ Last administered on 10/25/18at 18:23; Start 10/25/18 at 18:00 Insulin Human Lispro (HumaLOG) 0-7 UNITS TIDWMEALS SQ Last administered on 10/25/18at 18:23; Start 10/25/18 at 17:30 Dextrose (Dextrose 50%-Water Syringe) 12.5 gm PRN Q15MIN PRN IV SEE COMMENTS; Start 10/25/18 at 17:15 Dextrose 250 ml PRN Q15MIN PRN IV SEE COMMENTS; Start 10/25/18 at 17:15 Polyethylene Glycol (miraLAX PACKET) 17 gm PRN DAILY PRN PO CONSTIPATION; Start 10/25/18 at 17:30 Sodium Chloride 1,000 ml @ 100 mls/hr Q10H IV ; Start 10/25/18 at 17:30 Polyethylene Glycol (miraLAX PACKET) 17 gm DAILY PO ; Start 10/26/18 at 09:00 Docusate Sodium (Colace) 100 mg DAILY PO ; Start 10/26/18 at 09:00 Docusate Sodium (Colace) 100 mg PRN DAILY PRN PO STOOL SOFTENER; Start 10/25/18 at 18:15 Active Scripts Active Humalog (Insulin Lispro) 100 Unit/1 Ml Insuln.pen 13 Units SQ TIDWMEALS 30 Days Lantus Solostar (Insulin Glargine,Hum.rec.anlog) 100 Unit/1 Ml Insuln.pen 22 Units SQ QHS 30 Days Mirtazapine 7.5 Mg Tablet 7.5 Mg PO QHS 30 Days Proair Hfa (Albuterol Sulfate) 8.5 Gm Hfa.aer.ad 2.5 Mg NEB RTQID 30 Days Reported Humalog (Insulin Lispro) 100 Unit/1 Ml Cartridge 15 Unit SQ TIDAFTMEAL Lantus Solostar (Insulin Glargine,Hum.rec.anlog) 100 Unit/1 Ml Insuln.pen 25 Unit SQ QHS Symbicort 160-4.5 Mcg Inhaler (Budesonide/Formoterol Fumarate) 10.2 Gm Hfa.aer.ad 2 Puff IH PRN BID PRN Hydrocodone-Apap 5-325 (Hydrocodone Bit/Acetaminophen) 1 Tab Tablet 1 Tab PO PRN Q6HRS PRN Marinol (Dronabinol) 5 Mg Capsule 5 Mg PO TID Bumetanide 1 Mg Tablet 0.5 Tab PO PRN Aldactone (Spironolactone) 25 Mg Tablet 25 Mg PO PRN DAILY Losartan Potassium 50 Mg Tablet 50 Mg PO DAILY Labetalol Hcl 200 Mg Tablet 200 Mg PO BID Cardizem Cd (Diltiazem Hcl) 240 Mg Cap.er.24h 240 Mg PO DAILY Atorvastatin Calcium 20 Mg Tablet 20 Mg PO DAILY Vitamin D3 (Cholecalciferol (Vitamin D3)) 2,000 Unit Tablet 2,000 Unit PO DAILY Allergies Allergies: Coded Allergies: No Known Drug Allergies (Unverified , 09/20/18) ROS General: YES: Chills, Fatigue, Malaise PSYCHOLOGICAL ROS: YES: Sleep disturbances Eyes: No Blurry vision, No Decreased vision, No Double vision, No Dry eyes, No Excessive tearing, No Eye Pain, No Itchy Eyes, No Loss of vision, No Photophobia, No Scotomata, No Uses contacts, No Uses glasses, No Other HEENT: YES: Heacaches; No: Visual Changes, Hearing change, Nasal congestion, Nasal discharge, Oral lesions, Sinus pain, Sore Throat, Epistaxis, Sneezing, Snoring, Tinnitus, Vertigo, Vocal changes, Other Respiratory: No: Cough, Hemoptysis, Orthopnea, Pleuritic Pain, Shortness of breath, SOB with excertion, Sputum Changes, Stridor, Tachypnea, Wheezing, Other Cardiovascular: No Chest Pain, No Palpitations, No Orthopnea, No Paroxysmal Noc. Dyspnea, No Edema, No Lt Headedness, No Other Gastrointestinal: Yes Nausea, Yes Abdominal Pain, Yes Constipation; No Vomiting, No Diarrhea, No Melena, No Hematochezia, No Other Genitourinary: No Dysuria, No Frequency, No Incontinence, No Hematuria, No Retention, No Discharge, No Urgency, No Pain, No Flank Pain, No Other, No , No , No , No , No , No , No Musculoskeletal: Yes Gait Disturbance, Yes Joint Pain, Yes Joint Stiffness, Yes Muscular Weakness; No Joint Swelling, No Muscle Pain, No Pain In:, No Swelling In:, No Other Neurological: No Behavorial Changes, No Bowel/Bladder ControlChng, No Confusion, No Dizziness, No Gait Disturbance, No Headaches, No Impaired Coor d/balance, No Memory Loss, No Numbness/Tingling, No Seizures, No Speech Problems, No Tremors, No Visual Changes, No Weakness, No Other Skin: Yes Dry Skin; No Eczema, No Hair Changes, No Lumps, No Mole Changes, No Mottling, No Nail Changes, No Pruritus, No Rash, No Skin Lesion Changes, No Other, No Acne Physical Exam General: Alert, Cooperative, No acute distress, moderate distress HEENT: PERRLA Abdomen: Normal bowel sounds, Soft Vitals Vitals Vital Signs Date Time Temp Pulse Resp B/P (MAP) Pulse Ox O2 Delivery O2 Flow Rate FiO2 10/25/18 17:45 Nasal Cannula 2.0 10/25/18 16:20 98.4 103 14 140/55 (83) 99 98.4 Labs Labs Laboratory Tests Test 10/25/18 13:35 10/25/18 16:41 White Blood Count 2.6 x10^3/uL (4.0-11.0) Red Blood Count 2.87 x10^6/uL (3.50-5.40) Hemoglobin 7.9 g/dL (12.0-15.5) Hematocrit 24.6 % (36.0-47.0) Mean Corpuscular Volume 86 fL (79-100) Mean Corpuscular Hemoglobin 28 pg (25-35) Mean Corpuscular Hemoglobin Concent 32 g/dL (31-37) Red Cell Distribution Width 22.5 % (11.5-14.5) Platelet Count 233 x10^3/uL (140-400) Neutrophils (%) (Auto) 81 % (31-73) Lymphocytes (%) (Auto) 10 % (24-48) Monocytes (%) (Auto) 8 % (0-9) Eosinophils (%) (Auto) 1 % (0-3) Basophils (%) (Auto) 0 % (0-3) Neutrophils # (Auto) 2.1 x10^3/uL (1.8-7.7) Lymphocytes # (Auto) 0.3 x10^3/uL (1.0-4.8) Monocytes # (Auto) 0.2 x10^3/uL (0.0-1.1) Eosinophils # (Auto) 0.0 x10^3/uL (0.0-0.7) Basophils # (Auto) 0.0 x10^3/uL (0.0-0.2) Segmented Neutrophils % 81 % (35-66) Band Neutrophils % 1 % (0-9) Lymphocytes % 11 % (24-48) Monocytes % 3 % (0-10) Eosinophils % 2 % (0-5) Metamyelocytes % 2 % (0-0) Platelet Estimate Adequate (ADEQUATE) Polychromasia Present Hypochromasia Present Poikilocytosis Present Anisocytosis Mod Sodium Level 144 mmol/L (136-145) Potassium Level 5.0 mmol/L (3.5-5.1) Chloride Level 110 mmol/L (98-107) Carbon Dioxide Level 31 mmol/L (21-32) Anion Gap 3 (6-14) Blood Urea Nitrogen 30 mg/dL (7-20) Creatinine 0.7 mg/dL (0.6-1.0) Estimated GFR (Cockcroft-Gault) 98.4 BUN/Creatinine Ratio 43 (6-20) Glucose Level 404 mg/dL (70-99) Calcium Level 11.9 mg/dL (8.5-10.1) Total Bilirubin 0.2 mg/dL (0.2-1.0) Aspartate Amino Transf (AST/SGOT) 25 U/L (15-37) Alanine Aminotransferase (ALT/SGPT) 13 U/L (14-59) Alkaline Phosphatase 107 U/L (46-116) Total Protein 5.8 g/dL (6.4-8.2) Albumin 2.3 g/dL (3.4-5.0) Albumin/Globulin Ratio 0.7 (1.0-1.7) Glucose (Fingerstick) 316 mg/dL (70-99) Laboratory Tests Test 10/25/18 13:35 10/25/18 16:41 White Blood Count 2.6 x10^3/uL (4.0-11.0) Red Blood Count 2.87 x10^6/uL (3.50-5.40) Hemoglobin 7.9 g/dL (12.0-15.5) Hematocrit 24.6 % (36.0-47.0) Mean Corpuscular Volume 86 fL (79-100) Mean Corpuscular Hemoglobin 28 pg (25-35) Mean Corpuscular Hemoglobin Concent 32 g/dL (31-37) Red Cell Distribution Width 22.5 % (11.5-14.5) Platelet Count 233 x10^3/uL (140-400) Neutrophils (%) (Auto) 81 % (31-73) Lymphocytes (%) (Auto) 10 % (24-48) Monocytes (%) (Auto) 8 % (0-9) Eosinophils (%) (Auto) 1 % (0-3) Basophils (%) (Auto) 0 % (0-3) Neutrophils # (Auto) 2.1 x10^3/uL (1.8-7.7) Lymphocytes # (Auto) 0.3 x10^3/uL (1.0-4.8) Monocytes # (Auto) 0.2 x10^3/uL (0.0-1.1) Eosinophils # (Auto) 0.0 x10^3/uL (0.0-0.7) Basophils # (Auto) 0.0 x10^3/uL (0.0-0.2) Segmented Neutrophils % 81 % (35-66) Band Neutrophils % 1 % (0-9) Lymphocytes % 11 % (24-48) Monocytes % 3 % (0-10) Eosinophils % 2 % (0-5) Metamyelocytes % 2 % (0-0) Platelet Estimate Adequate (ADEQUATE) Polychromasia Present Hypochromasia Present Poikilocytosis Present Anisocytosis Mod Sodium Level 144 mmol/L (136-145) Potassium Level 5.0 mmol/L (3.5-5.1) Chloride Level 110 mmol/L (98-107) Carbon Dioxide Level 31 mmol/L (21-32) Anion Gap 3 (6-14) Blood Urea Nitrogen 30 mg/dL (7-20) Creatinine 0.7 mg/dL (0.6-1.0) Estimated GFR (Cockcroft-Gault) 98.4 BUN/Creatinine Ratio 43 (6-20) Glucose Level 404 mg/dL (70-99) Calcium Level 11.9 mg/dL (8.5-10.1) Total Bilirubin 0.2 mg/dL (0.2-1.0) Aspartate Amino Transf (AST/SGOT) 25 U/L (15-37) Alanine Aminotransferase (ALT/SGPT) 13 U/L (14-59) Alkaline Phosphatase 107 U/L (46-116) Total Protein 5.8 g/dL (6.4-8.2) Albumin 2.3 g/dL (3.4-5.0) Albumin/Globulin Ratio 0.7 (1.0-1.7) Glucose (Fingerstick) 316 mg/dL (70-99) VTE Prophylaxis Ordered VTE Prophylaxis Devices: No VTE Pharmacological Prophylaxi: Yes Assessment/Plan Assessment/Plan hypercalcemia, moderate, hydrate, check ionized in AM no pamidronate at this time, metastatic breast cancer Dr. Millan to follow weakness and debility, PT and OT eval for safety pt may consider hospice care soon ALIX NORTON MD Oct 25, 2018 19:55
[2018-10-25] MEDS ORDERED: MAGNESIUM HYDROXIDE 2,400 MG/30 ML ORAL.SUSP. PO PRN (20:15)
[2018-10-25] MEDS: ALBUTEROL SULFATE 2.5 MG/3 ML NEBU. NEB SCH (20:34)
[2018-10-25] MEDS: BUDESONIDE 0.5 MG/2 ML NEBU. NEB SCH (20:34)
[2018-10-25] MEDS: INSULIN GLARGINE SYRINGE. SQ SCH (21:55)
[2018-10-25] MEDS: LABETALOL HCL 200 MG TABLET PO SCH (21:56)
[2018-10-25] MEDS: ATORVASTATIN CALCIUM 20 MG TABLET PO SCH (21:56)
[2018-10-25 22:45] VITALS: BP 157/52
--- NOTE | 2018-10-25 23:30 | NUR ---
NURSING NOTE Pt's [id number] at bedside. Stated concerns about the pt being on continuous IV fluids due to being in fluid overload at a previous time. This RN said we will keep a close eye on lung sounds and extremity swelling. Lowered infusion rate to 50 mL/hr per family/patient request. Will pass along to day RN.
--- NOTE | 2018-10-26 00:21 | CONS ---
DATE OF CONSULTATION: 10/25/2018 MEDICAL ONCOLOGY CONSULTATION REPORT CONSULTATION REQUESTED BY: Kristi Smith M.D. REASON FOR CONSULTATION: Metastatic breast cancer, now admitted with hypercalcemia. HISTORY OF PRESENT ILLNESS: The patient is a 78-year-old -[place] female who was diagnosed with ductal carcinoma in situ of the left breast in 2001, and she underwent left breast biopsy and tumor was ER/OR positive. After surgery, she underwent radiation therapy. In 06/2016, she was noted to have back pain. Back pain got worse in 2016 and she was noted to have enlarged left axillary lymph nodes concerning for recurrent breast cancer and a bone scan revealed increased uptake in the left 1st rib, 12th and 10th rib. There was also uptake in the vertebral body. Needle biopsy of the left axillary lymph node on 02/01/2017 revealed no malignancy. Excisional biopsy of the left axilla on 03/05/2017 revealed metastatic adenocarcinoma of breast primary with focal perineural drake infiltration. There is extensive infiltrative carcinoma in the perineural soft tissues. ER positive, OR negative, HER2/sven negative by FISH studies. She was started on letrozole and Ibrance in 02/2017. She developed pleural effusion in 04/2018. She underwent thoracentesis on the left side and 1000 mL of fluid was removed on 06/12/2018 and the cytology was positive for malignancy. Paracentesis on 06/12/2018 also revealed positive for malignancy. She was started on Abraxane on 06/21/2018. She has had overall stable disease with Abraxane. However, she subsequently developed worsening pleural effusion requiring thoracentesis. She underwent thoracentesis on 10/11/2018 and 1.1 liter of fluid was removed from the right side. She was noted to have hypercalcemia on 10/24/2018 with a calcium level of about 12.7, and hence, she was sent to the Emergency Room and subsequently admitted to [facility]. Calcium was noted to be 11.9 on 10/25/2018. Nephrology was consulted. She was started on IV fluids. PAST MEDICAL HISTORY: Back pain, diabetes mellitus, hypertension, and osteoporosis. FAMILY HISTORY: Positive for prostate cancer. SOCIAL HISTORY: No smoking or alcohol abuse. She quit smoking in 1991. REVIEW OF SYSTEMS: A 12-point review of system was performed. Pertinent positives are mentioned in the history of present illness. Rest of the system review is negative. PHYSICAL EXAMINATION: GENERAL APPEARANCE: The patient is a 78-year-old -[place] female who is in no acute cardiorespiratory distress. VITAL SIGNS: Blood pressure 131/60 and temperature 98.2. HEAD: Atraumatic, normocephalic. EYES: No icterus. NECK: Supple. CHEST: Bilaterally symmetrical. HEART: S1, S2 normal. ABDOMEN: Soft and nontender. CENTRAL NERVOUS SYSTEM: No focal deficits. LYMPHATICS: No lymphadenopathy. SKIN: No rashes. MUSCULOSKELETAL: She has left upper extremity edema. LABORATORY DATA: WBC 2.6, hemoglobin 7.6, platelet count 233, metamyelocytes 2%, creatinine 0.7 and calcium 11.9. IMPRESSION AND PLAN: 1. Stage 4 metastatic breast cancer with bone metastasis and pleural effusion and ascites. She was started on Abraxane due to disease progression with prior therapy. She has been on Abraxane since 06/21/2018. However, she developed worsening pleural effusion requiring thoracentesis on 10/11/2018 indicating progressive disease. She has now developed hypercalcemia. This is another sign of disease progression. Her performance status is poor. She spends most of her time sitting or lying at home. ECOG performance status is 3. Considering progressive disease despite chemotherapy and declining functional status, I have recommended to stop further chemotherapy and focus on comfort care and supportive care with the help of hospice. The patient understands and all her questions were answered. Her son Nikhil was also present during my discussion, who expressed that they would like to think about it and discuss further on 10/28/2018. 2. 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 I agree with IV hydration. Agree to consult Nephrology for further management. 3. 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 Continue to monitor hemoglobin and transfuse if hemoglobin is less than 7. 4. Leukopenia due to chemotherapy. Continue to monitor. 5. Pleural effusion, malignant. Chest x-ray on 10/24/2018 revealed stable pleural effusions. FRANKIE MUNROE MD DR: ALE/az JOB#: [id number] / [id number] DANA
[2018-10-26 03:00] VITALS: BP 133/55
[2018-10-26 07:00] VITALS: BP 148/68
[2018-10-26] MEDS: DRONABINOL 2.5 MG CAPSULE. PO SCH ×3 (07:47→17:21)
[2018-10-26] MEDS: ALBUTEROL SULFATE 2.5 MG/3 ML NEBU. NEB SCH ×4 (07:52→19:47)
[2018-10-26] MEDS: BUDESONIDE 0.5 MG/2 ML NEBU. NEB SCH ×2 (07:52→19:47)
[2018-10-26] MEDS: INSULIN LISPRO 300 UNITS/3 ML VIAL. SQ SCH ×6 (08:00→17:23)
[2018-10-26] MEDS: CHOLECALCIFEROL (VITAMIN D3) 1,000 UNIT TABLET PO SCH (08:27)
[2018-10-26] MEDS: LOSARTAN POTASSIUM 50 MG TABLET. PO SCH (08:28)
[2018-10-26] MEDS: DOCUSATE SODIUM 100 MG CAPSULE. PO SCH (08:31)
[2018-10-26] MEDS: LABETALOL HCL 200 MG TABLET PO SCH ×2 (08:31→20:39)
[2018-10-26] MEDS: POLYETHYLENE GLYCOL 3350 17 GM PACKET. PO SCH (08:32)
[2018-10-26 08:52] LABS: CALCIUM 11.2 mg/dL (8.5-10.1); CREATININE 0.5 mg/dL (0.6-1.0); GFR 145.1; POTASSIUM 4.7 mmol/L (3.5-5.1)
--- NOTE | 2018-10-26 10:08 | NUR ---
Per family request, this nurse held Patient's 0800 dose of Humalog. FSBS 99 and patient only ate 25%. Will monitor FSBS.
[2018-10-26 11:00] VITALS: BP 104/43
--- NOTE | 2018-10-26 12:23 | PDOC2 ---
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 Her treatment has been outlined well by Dr. Millan in his history of present illness which was reviewed. Patient had developed hypercalcemia and was sent to the ER for further evaluation. She was started on IV fluids and her calcium was come down from 11.9-11.2. She is not aware of previous episodes of hypercalcemia. She has not been taking antacids per se. She does admit to mild amount of balance problems as well as some constipation. She denies having fallen currently. She is feeling better with IV fluids as ordered. Denies any specific area of bone pain per se. Past Medical History Cardiovascular: HTN, Hyperlipidemia Pulmonary: Asthma Heme/Onc: Cancer Psych: Anxiety, Depression Endocrine: Diabetes Past Surgical History Past Surgical History: Mastectomy Family History Family History: Cancer Social History No ALCOHOL: none Drugs: None Lives: with Family Current Problem List Problem List Problems Medical Problems: (1) Hypercalcemia Status: Acute Current Medications Current Medications Current Medications Lidocaine/ Epinephrine (Let Topical) 3 ml STK-MED ONCE TP ; Start 10/25/18 at 12: 24; Stop 10/25/18 at 12:24; Status DC Lidocaine/ Epinephrine (Let Topical) 3 ml 1X ONCE TP Last administered on 10/25/18at 12:38; Start 10/25/18 at 12:30; Stop 10/25/18 at 12:34; Status DC Acetaminophen/ Hydrocodone Bitart (Lortab 5/325) 1 tab 1X ONCE PO Last administered on 10/25/18at 12:49; Start 10/25/18 at 13:15; Stop 10/25/18 at 13:16; Status DC Ondansetron HCl (Zofran) 4 mg PRN Q8HRS PRN IV NAUSEA/VOMITING; Start 10/25/18 at 13:45; Stop 10/26/18 at 13:44 Morphine Sulfate (Morphine Sulfate) 4 mg PRN Q2HR PRN IV PAIN; Start 10/25/18 at 13:45; Stop 10/26/18 at 13:44 Acetaminophen (Tylenol) 650 mg PRN Q4HRS PRN PO FEVER Last administered on 10/26/18 11:34; Start 10/25/18 at 13:45; Stop 10/26/18 at 13:44 Sodium Chloride 1,000 ml @ 125 mls/hr 1X ONCE IV Last administered on 10/25/18 13:52; Start 10/25/18 at 13:45; Stop 10/25/18 at 21:44; Status DC Lidocaine/ Epinephrine (Let Topical) 3 ml 1X ONCE TP Last administered on 10/25/18 15:58; Start 10/25/18 at 16:00; Stop 10/25/18 at 16:01; Status DC Albuterol Sulfate (Ventolin Neb Soln) 2.5 mg RTQID NEB Last administered on 10/26/18 07:52; Start 10/25/18 at 20:00 Atorvastatin Calcium (Lipitor) 20 mg QHS PO Last administered on 10/25/18 21:56; Start 10/25/18 at 21:00 Bumetanide (Bumex) 0.5 mg PRN DAILY PRN PO EDEMA; Start 10/25/18 at 17:15 Diltiazem HCl (Cardizem 24hr Cd) 240 mg DAILY PO Last administered on 10/26/18 08:32; Start 10/25/18 at 17:30 Acetaminophen/ Hydrocodone Bitart (Lortab 5/325) 1 tab PRN Q6HRS PRN PO PAIN; Start 10/25/18 at 17:15 Labetalol HCl (Trandate) 200 mg BID PO Last administered on 10/26/18 08:32; Start 10/25/18 at 21:00 Losartan Potassium (Cozaar) 50 mg DAILY PO Last administered on 10/26/18 08:32; Start 10/25/18 at 17:30 Spironolactone (Aldactone) 25 mg PRN DAILY PRN PO EDEMA; Start 10/25/18 at 17:15 Budesonide (Pulmicort) 0.5 mg RTBID NEB Last administered on 10/26/18 07:52; Start 10/25/18 at 20:00 Vitamin D (Vitamin D3) 2,000 unit DAILY PO Last administered on 10/26/18 08:32; Start 10/26/18 at 09:00 Dronabinol (Marinol) 5 mg TIDAC PO Last administered on 10/26/18 11:34; Start 10/25/18 at 17:30 Insulin Glargine (Lantus Syringe) 25 unit QHS SQ Last administered on 10/25/18at 21:56; Start 10/25/18 at 21:00 Insulin Human Lispro (HumaLOG) 15 units TIDWMEALS SQ Last administered on 10/25/18at 18:23; Start 10/25/18 at 18:00 Insulin Human Lispro (HumaLOG) 0-7 UNITS TIDWMEALS SQ Last administered on 10/25/18at 18:23; Start 10/25/18 at 17:30 Dextrose (Dextrose 50%-Water Syringe) 12.5 gm PRN Q15MIN PRN IV SEE COMMENTS; Start 10/25/18 at 17:15 Dextrose 250 ml PRN Q15MIN PRN IV SEE COMMENTS; Start 10/25/18 at 17:15 Polyethylene Glycol (miraLAX PACKET) 17 gm PRN DAILY PRN PO CONSTIPATION; Start 10/25/18 at 17:30 Sodium Chloride 1,000 ml @ 100 mls/hr Q10H IV Last administered on 10/25/18at 23:25; Start 10/25/18 at 17:30 Polyethylene Glycol (miraLAX PACKET) 17 gm DAILY PO Last administered on 10/26/18 08:32; Start 10/26/18 at 09:00 Docusate Sodium (Colace) 100 mg DAILY PO Last administered on 10/26/18at 08:32; Start 10/26/18 at 09:00 Docusate Sodium (Colace) 100 mg PRN DAILY PRN PO STOOL SOFTENER; Start 10/25/18 at 18:15 Magnesium Hydroxide (Milk Of Magnesia) 2,400 mg PRN DAILY PRN PO CONSTIPATION; Start 10/25/18 at 20:15 Active Scripts Active Humalog (Insulin Lispro) 100 Unit/1 Ml Insuln.pen 13 Units SQ TIDWMEALS 30 Days Lantus Solostar (Insulin Glargine,Hum.rec.anlog) 100 Unit/1 Ml Insuln.pen 22 Units SQ QHS 30 Days Mirtazapine 7.5 Mg Tablet 7.5 Mg PO QHS 30 Days Proair Hfa (Albuterol Sulfate) 8.5 Gm Hfa.aer.ad 2.5 Mg NEB RTQID 30 Days Reported Humalog (Insulin Lispro) 100 Unit/1 Ml Cartridge 15 Unit SQ TIDAFTMEAL Lantus Solostar (Insulin Glargine,Hum.rec.anlog) 100 Unit/1 Ml Insuln.pen 25 Unit SQ QHS Symbicort 160-4.5 Mcg Inhaler (Budesonide/Formoterol Fumarate) 10.2 Gm Hfa.aer.ad 2 Puff IH PRN BID PRN Hydrocodone-Apap 5-325 (Hydrocodone Bit/Acetaminophen) 1 Tab Tablet 1 Tab PO PRN Q6HRS PRN Marinol (Dronabinol) 5 Mg Capsule 5 Mg PO TID Bumetanide 1 Mg Tablet 0.5 Tab PO PRN Aldactone (Spironolactone) 25 Mg Tablet 25 Mg PO PRN DAILY Losartan Potassium 50 Mg Tablet 50 Mg PO DAILY Labetalol Hcl 200 Mg Tablet 200 Mg PO BID Cardizem Cd (Diltiazem Hcl) 240 Mg Cap.er.24h 240 Mg PO DAILY Atorvastatin Calcium 20 Mg Tablet 20 Mg PO DAILY Vitamin D3 (Cholecalciferol (Vitamin D3)) 2,000 Unit Tablet 2,000 Unit PO DAILY Allergies Allergies: Coded Allergies: No Known Drug Allergies (Unverified , 09/20/18) ROS Review of System Negative other than as reviewed under history of present illness Physical Exam Physical Exam GEN: Awake, Oriented x 3, In no distress EYES: Vision Unchanged, Conjunctiva Normal EN: No EN Drainage, Mucous Membranes moist NECK: no JVD, min JVP, Supple, no Thyromegaly CVS: S1S2, soft Murmur, No Gallop, No Rub,no Edema RESP: + Rales, n Rhonchi,no Acc. Muscle Use GI: BS + ve, NO Bruit, Non Tender, Non Distended : no CVA tenderness, no Suprapubic Tenderness Vital Signs Vital Signs Date Time Temp Pulse Resp B/P (MAP) Pulse Ox O2 Delivery O2 Flow Rate FiO2 10/26/18 11:00 98.0 93 20 104/43 (63) 99 Nasal Cannula 2.0 98.0 Assessment & Plan Hypercalcemia: Suspect early associated with metastatic disease to the bone. Patient was in vitamin D and hence level will be checked. She appears to be mildly symptomatic. She tells me she is urinating adequately urine output has not been well documented. We initially started IV fluids however patient's family did not want aggressive fluid depletion due to prior history of fluid overload. Echocardiogram is reviewed below. We'll use 1 time dose of pamidronate. Further doses of pamidronate can be deferred to oncology to be done as an outpatient Hypernatremia: Watch trend for now No further recommendations from renal standpoint. Labs Labs Laboratory Tests Test 10/25/18 13:35 10/25/18 16:41 10/25/18 20:23 10/26/18 07:41 White Blood Count 2.6 x10^3/uL (4.0-11.0) Red Blood Count 2.87 x10^6/uL (3.50-5.40) Hemoglobin 7.9 g/dL (12.0-15.5) Hematocrit 24.6 % (36.0-47.0) Mean Corpuscular Volume 86 fL (79-100) Mean Corpuscular Hemoglobin 28 pg (25-35) Mean Corpuscular Hemoglobin Concent 32 g/dL (31-37) Red Cell Distribution Width 22.5 % (11.5-14.5) Platelet Count 233 x10^3/uL (140-400) Neutrophils (%) (Auto) 81 % (31-73) Lymphocytes (%) (Auto) 10 % (24-48) Monocytes (%) (Auto) 8 % (0-9) Eosinophils (%) (Auto) 1 % (0-3) Basophils (%) (Auto) 0 % (0-3) Neutrophils # (Auto) 2.1 x10^3/uL (1.8-7.7) Lymphocytes # (Auto) 0.3 x10^3/uL (1.0-4.8) Monocytes # (Auto) 0.2 x10^3/uL (0.0-1.1) Eosinophils # (Auto) 0.0 x10^3/uL (0.0-0.7) Basophils # (Auto) 0.0 x10^3/uL (0.0-0.2) Segmented Neutrophils % 81 % (35-66) Band Neutrophils % 1 % (0-9) Lymphocytes % 11 % (24-48) Monocytes % 3 % (0-10) Eosinophils % 2 % (0-5) Metamyelocytes % 2 % (0-0) Platelet Estimate Adequate (ADEQUATE) Polychromasia Present Hypochromasia Present Poikilocytosis Present Anisocytosis Mod Sodium Level 144 mmol/L (136-145) Potassium Level 5.0 mmol/L (3.5-5.1) Chloride Level 110 mmol/L (98-107) Carbon Dioxide Level 31 mmol/L (21-32) Anion Gap 3 (6-14) Blood Urea Nitrogen 30 mg/dL (7-20) Creatinine 0.7 mg/dL (0.6-1.0) Estimated GFR (Cockcroft-Gault) 98.4 BUN/Creatinine Ratio 43 (6-20) Glucose Level 404 mg/dL (70-99) Calcium Level 11.9 mg/dL (8.5-10.1) Total Bilirubin 0.2 mg/dL (0.2-1.0) Aspartate Amino Transf (AST/SGOT) 25 U/L (15-37) Alanine Aminotransferase (ALT/SGPT) 13 U/L (14-59) Alkaline Phosphatase 107 U/L (46-116) Total Protein 5.8 g/dL (6.4-8.2) Albumin 2.3 g/dL (3.4-5.0) Albumin/Globulin Ratio 0.7 (1.0-1.7) Glucose (Fingerstick) 316 mg/dL (70-99) 254 mg/dL (70-99) 99 mg/dL (70-99) Test 10/26/18 08:10 10/26/18 11:03 Sodium Level 148 mmol/L (136-145) Potassium Level 4.7 mmol/L (3.5-5.1) Chloride Level 112 mmol/L (98-107) Carbon Dioxide Level 31 mmol/L (21-32) Anion Gap 5 (6-14) Blood Urea Nitrogen 24 mg/dL (7-20) Creatinine 0.5 mg/dL (0.6-1.0) Estimated GFR (Cockcroft-Gault) 145.1 Glucose Level 98 mg/dL (70-99) Calcium Level 11.2 mg/dL (8.5-10.1) Ionized Calcium 1.72 mmol/L (1.13-1.32) Glucose (Fingerstick) 121 mg/dL (70-99) Laboratory Tests Test 10/25/18 13:35 10/25/18 16:41 10/25/18 20:23 10/26/18 07:41 White Blood Count 2.6 x10^3/uL (4.0-11.0) Red Blood Count 2.87 x10^6/uL (3.50-5.40) Hemoglobin 7.9 g/dL (12.0-15.5) Hematocrit 24.6 % (36.0-47.0) Mean Corpuscular Volume 86 fL (79-100) Mean Corpuscular Hemoglobin 28 pg (25-35) Mean Corpuscular Hemoglobin Concent 32 g/dL (31-37) Red Cell Distribution Width 22.5 % (11.5-14.5) Platelet Count 233 x10^3/uL (140-400) Neutrophils (%) (Auto) 81 % (31-73) Lymphocytes (%) (Auto) 10 % (24-48) Monocytes (%) (Auto) 8 % (0-9) Eosinophils (%) (Auto) 1 % (0-3) Basophils (%) (Auto) 0 % (0-3) Neutrophils # (Auto) 2.1 x10^3/uL (1.8-7.7) Lymphocytes # (Auto) 0.3 x10^3/uL (1.0-4.8) Monocytes # (Auto) 0.2 x10^3/uL (0.0-1.1) Eosinophils # (Auto) 0.0 x10^3/uL (0.0-0.7) Basophils # (Auto) 0.0 x10^3/uL (0.0-0.2) Segmented Neutrophils % 81 % (35-66) Band Neutrophils % 1 % (0-9) Lymphocytes % 11 % (24-48) Monocytes % 3 % (0-10) Eosinophils % 2 % (0-5) Metamyelocytes % 2 % (0-0) Platelet Estimate Adequate (ADEQUATE) Polychromasia Present Hypochromasia Present Poikilocytosis Present Anisocytosis Mod Sodium Level 144 mmol/L (136-145) Potassium Level 5.0 mmol/L (3.5-5.1) Chloride Level 110 mmol/L (98-107) Carbon Dioxide Level 31 mmol/L (21-32) Anion Gap 3 (6-14) Blood Urea Nitrogen 30 mg/dL (7-20) Creatinine 0.7 mg/dL (0.6-1.0) Estimated GFR (Cockcroft-Gault) 98.4 BUN/Creatinine Ratio 43 (6-20) Glucose Level 404 mg/dL (70-99) Calcium Level 11.9 mg/dL (8.5-10.1) Total Bilirubin 0.2 mg/dL (0.2-1.0) Aspartate Amino Transf (AST/SGOT) 25 U/L (15-37) Alanine Aminotransferase (ALT/SGPT) 13 U/L (14-59) Alkaline Phosphatase 107 U/L (46-116) Total Protein 5.8 g/dL (6.4-8.2) Albumin 2.3 g/dL (3.4-5.0) Albumin/Globulin Ratio 0.7 (1.0-1.7) Glucose (Fingerstick) 316 mg/dL (70-99) 254 mg/dL (70-99) 99 mg/dL (70-99) Test 10/26/18 08:10 10/26/18 11:03 Sodium Level 148 mmol/L (136-145) Potassium Level 4.7 mmol/L (3.5-5.1) Chloride Level 112 mmol/L (98-107) Carbon Dioxide Level 31 mmol/L (21-32) Anion Gap 5 (6-14) Blood Urea Nitrogen 24 mg/dL (7-20) Creatinine 0.5 mg/dL (0.6-1.0) Estimated GFR (Cockcroft-Gault) 145.1 Glucose Level 98 mg/dL (70-99) Calcium Level 11.2 mg/dL (8.5-10.1) Ionized Calcium 1.72 mmol/L (1.13-1.32) Glucose (Fingerstick) 121 mg/dL (70-99) Review All relevant outside records, renal labs, imaging studies, telemetry/EKG's were reviewed. Images Images Echocardiogram dated 06/12/2018: The left ventricular systolic function is normal. The Ejection Fraction is 60-65%. There is normal LV segmental wall motion. Transmitral Doppler flow pattern is Grade I-abnormal relaxation pattern. Trace mitral regurgitation. Trace tricuspid regurgitation with an estimated PAP of 32 mmHg. There is a trace circumferential pericardial effusion. Bone scan from 09/05/2018: FINDINGS: Bilateral renal function is evident. Radiotracer uptake is seen within the thoracic spine and lumbar spine and upper sacrum and both sides of the pelvis and rib cage bilaterally and the upper medial left scapula and the intertrochanteric area of the proximal right femur and intertrochanteric area of the proximal left femur which are unchanged. The previously seen area of uptake involving the upper right calvarium is not evident today. No new osseous uptake is seen. IMPRESSION: Osseous metastatic disease. No new osseous lesion is seen. Osseous lesion seen within the upper right calvarium on the previous study is not evident today. The other areas are stable PERLA PHILLIPS MD Oct 26, 2018 12:23
--- NOTE | 2018-10-26 13:42 | PDOC ---
PROGRESS NOTES Chief Complaint Chief Complaint hypercalcemia, moderate, hydrate - nephrology consulted. 11.9-->11.2 with hydration alone hypernatremia hyperchloremia metastatic breast cancer - Dr. Millan to follow weakness and debility, PT and OT eval for safety Anemia due to malignancy and chemotherapy - check hemoglobin and transfuse if hemoglobin is less than 7 Leukopenia - due to chemotherapy. CBC daily Pleural effusion, malignant - Chest x-ray on 10/24/2018 revealed stable pleural effusions Constipation Stage I decubitus ulcer pt may consider hospice care soon History of Present Illness History of Present Illness Ms Hobson is a 78yo F w/ PMHx diabetes type 2, hypertension, Left breast cancer (2001) with relapse in 2017, now with metastatic disease (ER positive, OK negative, HER2/sven negative) to the bones and pleural space who last had chemotherapy treatment on Sunday last week and radiation 10/24/18 who presents to the ED today stating she received a phone call from the doctor's office to come to the ED and be admitted for high calcium (11.9). Vitals Vitals Vital Signs Date Time Temp Pulse Resp B/P (MAP) Pulse Ox O2 Delivery O2 Flow Rate FiO2 10/26/18 11:00 98.0 93 20 104/43 (63) 99 Nasal Cannula 2.0 98.0 Physical Exam General: Alert, Cooperative, No acute distress, moderate distress Lungs: Crackles, Other Abdomen: Normal bowel sounds, Soft Labs LABS Laboratory Tests Test 10/25/18 13:35 10/25/18 16:41 10/25/18 20:23 10/26/18 07:41 White Blood Count 2.6 x10^3/uL (4.0-11.0) Red Blood Count 2.87 x10^6/uL (3.50-5.40) Hemoglobin 7.9 g/dL (12.0-15.5) Hematocrit 24.6 % (36.0-47.0) Mean Corpuscular Volume 86 fL (79-100) Mean Corpuscular Hemoglobin 28 pg (25-35) Mean Corpuscular Hemoglobin Concent 32 g/dL (31-37) Red Cell Distribution Width 22.5 % (11.5-14.5) Platelet Count 233 x10^3/uL (140-400) Neutrophils (%) (Auto) 81 % (31-73) Lymphocytes (%) (Auto) 10 % (24-48) Monocytes (%) (Auto) 8 % (0-9) Eosinophils (%) (Auto) 1 % (0-3) Basophils (%) (Auto) 0 % (0-3) Neutrophils # (Auto) 2.1 x10^3/uL (1.8-7.7) Lymphocytes # (Auto) 0.3 x10^3/uL (1.0-4.8) Monocytes # (Auto) 0.2 x10^3/uL (0.0-1.1) Eosinophils # (Auto) 0.0 x10^3/uL (0.0-0.7) Basophils # (Auto) 0.0 x10^3/uL (0.0-0.2) Segmented Neutrophils % 81 % (35-66) Band Neutrophils % 1 % (0-9) Lymphocytes % 11 % (24-48) Monocytes % 3 % (0-10) Eosinophils % 2 % (0-5) Metamyelocytes % 2 % (0-0) Platelet Estimate Adequate (ADEQUATE) Polychromasia Present Hypochromasia Present Poikilocytosis Present Anisocytosis Mod Sodium Level 144 mmol/L (136-145) Potassium Level 5.0 mmol/L (3.5-5.1) Chloride Level 110 mmol/L (98-107) Carbon Dioxide Level 31 mmol/L (21-32) Anion Gap 3 (6-14) Blood Urea Nitrogen 30 mg/dL (7-20) Creatinine 0.7 mg/dL (0.6-1.0) Estimated GFR (Cockcroft-Gault) 98.4 BUN/Creatinine Ratio 43 (6-20) Glucose Level 404 mg/dL (70-99) Calcium Level 11.9 mg/dL (8.5-10.1) Total Bilirubin 0.2 mg/dL (0.2-1.0) Aspartate Amino Transf (AST/SGOT) 25 U/L (15-37) Alanine Aminotransferase (ALT/SGPT) 13 U/L (14-59) Alkaline Phosphatase 107 U/L (46-116) Total Protein 5.8 g/dL (6.4-8.2) Albumin 2.3 g/dL (3.4-5.0) Albumin/Globulin Ratio 0.7 (1.0-1.7) Glucose (Fingerstick) 316 mg/dL (70-99) 254 mg/dL (70-99) 99 mg/dL (70-99) Test 10/26/18 08:10 10/26/18 11:03 Sodium Level 148 mmol/L (136-145) Potassium Level 4.7 mmol/L (3.5-5.1) Chloride Level 112 mmol/L (98-107) Carbon Dioxide Level 31 mmol/L (21-32) Anion Gap 5 (6-14) Blood Urea Nitrogen 24 mg/dL (7-20) Creatinine 0.5 mg/dL (0.6-1.0) Estimated GFR (Cockcroft-Gault) 145.1 Glucose Level 98 mg/dL (70-99) Calcium Level 11.2 mg/dL (8.5-10.1) Ionized Calcium 1.72 mmol/L (1.13-1.32) Glucose (Fingerstick) 121 mg/dL (70-99) Assessment and Plan Assessmemt and Plan Problems Medical Problems: (1) Hypercalcemia Status: Acute Comment Review of Relevant I have reviewed the following items patrica (where applicable) has been applied. Labs Laboratory Tests Test 10/25/18 13:35 10/25/18 16:41 10/25/18 20:23 10/26/18 07:41 White Blood Count 2.6 x10^3/uL (4.0-11.0) Red Blood Count 2.87 x10^6/uL (3.50-5.40) Hemoglobin 7.9 g/dL (12.0-15.5) Hematocrit 24.6 % (36.0-47.0) Mean Corpuscular Volume 86 fL (79-100) Mean Corpuscular Hemoglobin 28 pg (25-35) Mean Corpuscular Hemoglobin Concent 32 g/dL (31-37) Red Cell Distribution Width 22.5 % (11.5-14.5) Platelet Count 233 x10^3/uL (140-400) Neutrophils (%) (Auto) 81 % (31-73) Lymphocytes (%) (Auto) 10 % (24-48) Monocytes (%) (Auto) 8 % (0-9) Eosinophils (%) (Auto) 1 % (0-3) Basophils (%) (Auto) 0 % (0-3) Neutrophils # (Auto) 2.1 x10^3/uL (1.8-7.7) Lymphocytes # (Auto) 0.3 x10^3/uL (1.0-4.8) Monocytes # (Auto) 0.2 x10^3/uL (0.0-1.1) Eosinophils # (Auto) 0.0 x10^3/uL (0.0-0.7) Basophils # (Auto) 0.0 x10^3/uL (0.0-0.2) Segmented Neutrophils % 81 % (35-66) Band Neutrophils % 1 % (0-9) Lymphocytes % 11 % (24-48) Monocytes % 3 % (0-10) Eosinophils % 2 % (0-5) Metamyelocytes % 2 % (0-0) Platelet Estimate Adequate (ADEQUATE) Polychromasia Present Hypochromasia Present Poikilocytosis Present Anisocytosis Mod Sodium Level 144 mmol/L (136-145) Potassium Level 5.0 mmol/L (3.5-5.1) Chloride Level 110 mmol/L (98-107) Carbon Dioxide Level 31 mmol/L (21-32) Anion Gap 3 (6-14) Blood Urea Nitrogen 30 mg/dL (7-20) Creatinine 0.7 mg/dL (0.6-1.0) Estimated GFR (Cockcroft-Gault) 98.4 BUN/Creatinine Ratio 43 (6-20) Glucose Level 404 mg/dL (70-99) Calcium Level 11.9 mg/dL (8.5-10.1) Total Bilirubin 0.2 mg/dL (0.2-1.0) Aspartate Amino Transf (AST/SGOT) 25 U/L (15-37) Alanine Aminotransferase (ALT/SGPT) 13 U/L (14-59) Alkaline Phosphatase 107 U/L (46-116) Total Protein 5.8 g/dL (6.4-8.2) Albumin 2.3 g/dL (3.4-5.0) Albumin/Globulin Ratio 0.7 (1.0-1.7) Glucose (Fingerstick) 316 mg/dL (70-99) 254 mg/dL (70-99) 99 mg/dL (70-99) Test 10/26/18 08:10 10/26/18 11:03 Sodium Level 148 mmol/L (136-145) Potassium Level 4.7 mmol/L (3.5-5.1) Chloride Level 112 mmol/L (98-107) Carbon Dioxide Level 31 mmol/L (21-32) Anion Gap 5 (6-14) Blood Urea Nitrogen 24 mg/dL (7-20) Creatinine 0.5 mg/dL (0.6-1.0) Estimated GFR (Cockcroft-Gault) 145.1 Glucose Level 98 mg/dL (70-99) Calcium Level 11.2 mg/dL (8.5-10.1) Ionized Calcium 1.72 mmol/L (1.13-1.32) Glucose (Fingerstick) 121 mg/dL (70-99) Laboratory Tests Test 10/25/18 13:35 10/25/18 16:41 10/25/18 20:23 10/26/18 07:41 White Blood Count 2.6 x10^3/uL (4.0-11.0) Red Blood Count 2.87 x10^6/uL (3.50-5.40) Hemoglobin 7.9 g/dL (12.0-15.5) Hematocrit 24.6 % (36.0-47.0) Mean Corpuscular Volume 86 fL (79-100) Mean Corpuscular Hemoglobin 28 pg (25-35) Mean Corpuscular Hemoglobin Concent 32 g/dL (31-37) Red Cell Distribution Width 22.5 % (11.5-14.5) Platelet Count 233 x10^3/uL (140-400) Neutrophils (%) (Auto) 81 % (31-73) Lymphocytes (%) (Auto) 10 % (24-48) Monocytes (%) (Auto) 8 % (0-9) Eosinophils (%) (Auto) 1 % (0-3) Basophils (%) (Auto) 0 % (0-3) Neutrophils # (Auto) 2.1 x10^3/uL (1.8-7.7) Lymphocytes # (Auto) 0.3 x10^3/uL (1.0-4.8) Monocytes # (Auto) 0.2 x10^3/uL (0.0-1.1) Eosinophils # (Auto) 0.0 x10^3/uL (0.0-0.7) Basophils # (Auto) 0.0 x10^3/uL (0.0-0.2) Segmented Neutrophils % 81 % (35-66) Band Neutrophils % 1 % (0-9) Lymphocytes % 11 % (24-48) Monocytes % 3 % (0-10) Eosinophils % 2 % (0-5) Metamyelocytes % 2 % (0-0) Platelet Estimate Adequate (ADEQUATE) Polychromasia Present Hypochromasia Present Poikilocytosis Present Anisocytosis Mod Sodium Level 144 mmol/L (136-145) Potassium Level 5.0 mmol/L (3.5-5.1) Chloride Level 110 mmol/L (98-107) Carbon Dioxide Level 31 mmol/L (21-32) Anion Gap 3 (6-14) Blood Urea Nitrogen 30 mg/dL (7-20) Creatinine 0.7 mg/dL (0.6-1.0) Estimated GFR (Cockcroft-Gault) 98.4 BUN/Creatinine Ratio 43 (6-20) Glucose Level 404 mg/dL (70-99) Calcium Level 11.9 mg/dL (8.5-10.1) Total Bilirubin 0.2 mg/dL (0.2-1.0) Aspartate Amino Transf (AST/SGOT) 25 U/L (15-37) Alanine Aminotransferase (ALT/SGPT) 13 U/L (14-59) Alkaline Phosphatase 107 U/L (46-116) Total Protein 5.8 g/dL (6.4-8.2) Albumin 2.3 g/dL (3.4-5.0) Albumin/Globulin Ratio 0.7 (1.0-1.7) Glucose (Fingerstick) 316 mg/dL (70-99) 254 mg/dL (70-99) 99 mg/dL (70-99) Test 10/26/18 08:10 10/26/18 11:03 Sodium Level 148 mmol/L (136-145) Potassium Level 4.7 mmol/L (3.5-5.1) Chloride Level 112 mmol/L (98-107) Carbon Dioxide Level 31 mmol/L (21-32) Anion Gap 5 (6-14) Blood Urea Nitrogen 24 mg/dL (7-20) Creatinine 0.5 mg/dL (0.6-1.0) Estimated GFR (Cockcroft-Gault) 145.1 Glucose Level 98 mg/dL (70-99) Calcium Level 11.2 mg/dL (8.5-10.1) Ionized Calcium 1.72 mmol/L (1.13-1.32) Glucose (Fingerstick) 121 mg/dL (70-99) Medications Current Medications Lidocaine/ Epinephrine (Let Topical) 3 ml STK-MED ONCE TP ; Start 10/25/18 at 12:24; Stop 10/25/18 at 12:24; Status DC Lidocaine/ Epinephrine (Let Topical) 3 ml 1X ONCE TP Last administered on 10/25/18at 12:38; Start 10/25/18 at 12:30; Stop 10/25/18 at 12:34; Status DC Acetaminophen/ Hydrocodone Bitart (Lortab 5/325) 1 tab 1X ONCE PO Last administered on 10/25/18at 12:49; Start 10/25/18 at 13:15; Stop 10/25/18 at 13:16; Status DC Ondansetron HCl (Zofran) 4 mg PRN Q8HRS PRN IV NAUSEA/VOMITING; Start 10/25/18 at 13:45; Stop 10/26/18 at 13:44 Morphine Sulfate (Morphine Sulfate) 4 mg PRN Q2HR PRN IV PAIN; Start 10/25/18 at 13:45; Stop 10/26/18 at 13:44 Acetaminophen (Tylenol) 650 mg PRN Q4HRS PRN PO FEVER Last administered on 10/26/18at 11:34; Start 10/25/18 at 13:45; Stop 10/26/18 at 13:44 Sodium Chloride 1,000 ml @ 125 mls/hr 1X ONCE IV Last administered on 10/25/18at 13:52; Start 10/25/18 at 13:45; Stop 10/25/18 at 21:44; Status DC Lidocaine/ Epinephrine (Let Topical) 3 ml 1X ONCE TP Last administered on at 15:58; Start 10/25/18 at 16:00; Stop 10/25/18 at 16:01; Status DC Albuterol Sulfate (Ventolin Neb Soln) 2.5 mg RTQID NEB Last administered on 10/26/18at 07:52; Start 10/25/18 at 20:00 Atorvastatin Calcium (Lipitor) 20 mg QHS PO Last administered on 10/25/18 21:56; Start 10/25/18 at 21:00 Bumetanide (Bumex) 0.5 mg PRN DAILY PRN PO EDEMA; Start 10/25/18 at 17:15 Diltiazem HCl (Cardizem 24hr Cd) 240 mg DAILY PO Last administered on 10/26/18 08:32; Start 10/25/18 at 17:30 Acetaminophen/ Hydrocodone Bitart (Lortab 5/325) 1 tab PRN Q6HRS PRN PO PAIN; Start 10/25/18 at 17:15 Labetalol HCl (Trandate) 200 mg BID PO Last administered on 10/26/18 08:32; Start 10/25/18 at 21:00 Losartan Potassium (Cozaar) 50 mg DAILY PO Last administered on 10/26/18 08:32; Start 10/25/18 at 17:30 Spironolactone (Aldactone) 25 mg PRN DAILY PRN PO EDEMA; Start 10/25/18 at 17:15 Budesonide (Pulmicort) 0.5 mg RTBID NEB Last administered on 10/26/18 07:52; Start 10/25/18 at 20:00 Vitamin D (Vitamin D3) 2,000 unit DAILY PO Last administered on 10/26/18 08:32; Start 10/26/18 at 09:00 Dronabinol (Marinol) 5 mg TIDAC PO Last administered on 10/26/18 11:34; Start 10/25/18 at 17:30 Insulin Glargine (Lantus Syringe) 25 unit QHS SQ Last administered on 10/25/18 21:56; Start 10/25/18 at 21:00 Insulin Human Lispro (HumaLOG) 15 units TIDWMEALS SQ Last administered on 10/25/18 18:23; Start 10/25/18 at 18:00 Insulin Human Lispro (HumaLOG) 0-7 UNITS TIDWMEALS SQ Last administered on 10/25/18 18:23; Start 10/25/18 at 17:30 Dextrose (Dextrose 50%-Water Syringe) 12.5 gm PRN Q15MIN PRN IV SEE COMMENTS; Start 10/25/18 at 17:15 Dextrose 250 ml PRN Q15MIN PRN IV SEE COMMENTS; Start 10/25/18 at 17:15 Polyethylene Glycol (miraLAX PACKET) 17 gm PRN DAILY PRN PO CONSTIPATION; Start 10/25/18 at 17:30 Sodium Chloride 1,000 ml @ 100 mls/hr Q10H IV Last administered on 10/25/18at 23:25; Start 10/25/18 at 17:30; Stop 10/26/18 at 12:31; Status DC Polyethylene Glycol (miraLAX PACKET) 17 gm DAILY PO Last administered on 10/26/18at 08:32; Start 10/26/18 at 09:00 Docusate Sodium (Colace) 100 mg DAILY PO Last administered on 10/26/18at 08:32; Start 10/26/18 at 09:00 Docusate Sodium (Colace) 100 mg PRN DAILY PRN PO STOOL SOFTENER; Start 10/25/18 at 18:15 Magnesium Hydroxide (Milk Of Magnesia) 2,400 mg PRN DAILY PRN PO CONSTIPATION; Start 10/25/18 at 20:15 Active Scripts Active Humalog (Insulin Lispro) 100 Unit/1 Ml Insuln.pen 13 Units SQ TIDWMEALS 30 Days Lantus Solostar (Insulin Glargine,Hum.rec.anlog) 100 Unit/1 Ml Insuln.pen 22 Units SQ QHS 30 Days Mirtazapine 7.5 Mg Tablet 7.5 Mg PO QHS 30 Days Proair Hfa (Albuterol Sulfate) 8.5 Gm Hfa.aer.ad 2.5 Mg NEB RTQID 30 Days Reported Humalog (Insulin Lispro) 100 Unit/1 Ml Cartridge 15 Unit SQ TIDAFTMEAL Lantus Solostar (Insulin Glargine,Hum.rec.anlog) 100 Unit/1 Ml Insuln.pen 25 Unit SQ QHS Symbicort 160-4.5 Mcg Inhaler (Budesonide/Formoterol Fumarate) 10.2 Gm Hfa.aer.ad 2 Puff IH PRN BID PRN Hydrocodone-Apap 5-325 (Hydrocodone Bit/Acetaminophen) 1 Tab Tablet 1 Tab PO PRN Q6HRS PRN Marinol (Dronabinol) 5 Mg Capsule 5 Mg PO TID Bumetanide 1 Mg Tablet 0.5 Tab PO PRN Aldactone (Spironolactone) 25 Mg Tablet 25 Mg PO PRN DAILY Losartan Potassium 50 Mg Tablet 50 Mg PO DAILY Labetalol Hcl 200 Mg Tablet 200 Mg PO BID Cardizem Cd (Diltiazem Hcl) 240 Mg Cap.er.24h 240 Mg PO DAILY Atorvastatin Calcium 20 Mg Tablet 20 Mg PO DAILY Vitamin D3 (Cholecalciferol (Vitamin D3)) 2,000 Unit Tablet 2,000 Unit PO DAILY Vitals/I & O Vital Sign - Last 24 Hours 10/25/18 10/25/18 10/25/18 10/25/18 13:41 14:11 14:11 16:20 Temp 98.4 98.4 Pulse 100 96 100 103 Resp 18 18 18 14 B/P (MAP) 132/61 (84) 131/60 (83) 137/62 (87) 140/55 (83) Pulse Ox 96 95 95 99 O2 Delivery Room Air Room Air Room Air Nasal Cannula O2 Flow Rate 2.0 10/25/18 10/25/18 10/25/18 10/25/18 16:34 17:45 19:00 20:00 Temp 98.2 98.2 Pulse 105 Resp 16 B/P (MAP) 147/57 (87) Pulse Ox 98 O2 Delivery Nasal Cannula Nasal Cannula Nasal Cannula Nasal Cannula O2 Flow Rate 2.0 2.0 2.0 2.0 10/25/18 10/25/18 10/25/18 10/25/18 20:37 20:38 21:56 22:45 Temp 98.6 98.6 Pulse 105 101 Resp 21 B/P (MAP) 147/57 157/52 (87) Pulse Ox 98 98 100 O2 Delivery Nasal Cannula Nasal Cannula Nasal Cannula O2 Flow Rate 2.0 2.0 2.0 10/26/18 10/26/18 10/26/18 10/26/18 03:00 07:00 07:52 07:52 Temp 98.8 97.7 98.8 97.7 Pulse 96 108 Resp 19 20 B/P (MAP) 133/55 (81) 148/68 (94) Pulse Ox 98 100 99 O2 Delivery Nasal Cannula Nasal Cannula Nasal Cannula Nasal Cannula O2 Flow Rate 2.0 2.0 2.0 2.0 9/7/19 10/26/18 10/26/18 10/26/18 08:32 08:32 08:32 11:00 Temp 98.0 98.0 Pulse 108 108 108 93 Resp 20 B/P (MAP) 148/68 148/68 148/68 104/43 (63) Pulse Ox 99 O2 Delivery Nasal Cannula O2 Flow Rate 2.0 Intake and Output 10/25/18 10/25/18 10/26/18 15:00 23:00 07:00 Intake Total 300 ml 1100 ml Output Total 0 ml Balance 300 ml 1100 ml KAITLIN BAH MD Oct 26, 2018 13:42
[2018-10-26] MEDS ORDERED: PAMIDRONATE 60 MG in IV NORMAL SALINE 250ML 250 ML IV ONE (14:00)
[2018-10-26] MEDS: PSYLLIUM HUSK (SUGAR FREE) 1 PKT PACKET PO SCH (14:29)
[2018-10-26 15:00] VITALS: BP 102/48
[2018-10-26 19:00] VITALS: BP 130/54
[2018-10-26] MEDS: ATORVASTATIN CALCIUM 20 MG TABLET PO SCH (20:37)
[2018-10-26] MEDS: MIRTAZAPINE 7.5 MG TABLET. PO SCH (20:39)
[2018-10-26] MEDS: INSULIN GLARGINE SYRINGE. SQ SCH (20:57)
[2018-10-26 23:00] VITALS: BP 111/52
[2018-10-27 03:00] VITALS: BP 131/59
[2018-10-27 05:32] LABS: BASO % 0 % (0-3); EOS % 2 % (0-3); HEMATOCRIT 24.1 % (36.0-47.0); HEMOGLOBIN 7.8 g/dL (12.0-15.5); LYMPH # 0.3 x10^3/uL (1.0-4.8); LYMPH % 9 % (24-48); MEAN CORPUSCULAR HEMOGLOBIN 28 pg (25-35); MEAN CORPUSCULAR HGB CONC 32 g/dL (31-37); MEAN CORPUSCULAR VOLUME 86 fL (79-100); MONO # 0.4 x10^3/uL (0.0-1.1); MONO % 12 % (0-9); NEUT # 2.4 x10^3/uL (1.8-7.7); NEUT % 77 % (31-73); PLATELET COUNT 220 x10^3/uL (140-400); RED CELL DISTRIBUTION WIDTH 22.2 % (11.5-14.5); WHITE BLOOD COUNT 3.1 x10^3/uL (4.0-11.0)
[2018-10-27 06:07] LABS: ALBUMIN 2.1 g/dL (3.4-5.0); CALCIUM 11.6 mg/dL (8.5-10.1); CREATININE 0.6 mg/dL (0.6-1.0); GFR 117.6; PHOSPHORUS 3.2 mg/dL (2.6-4.7); POTASSIUM 4.6 mmol/L (3.5-5.1)
[2018-10-27 07:00] VITALS: BP 138/53
[2018-10-27] MEDS: ALBUTEROL SULFATE 2.5 MG/3 ML NEBU. NEB SCH ×4 (07:36→19:57)
[2018-10-27] MEDS: BUDESONIDE 0.5 MG/2 ML NEBU. NEB SCH ×2 (07:36→19:57)
[2018-10-27] MEDS: INSULIN LISPRO 300 UNITS/3 ML VIAL. SQ SCH ×6 (08:00→16:59)
[2018-10-27] MEDS: DRONABINOL 2.5 MG CAPSULE. PO SCH ×3 (08:11→16:58)
--- NOTE | 2018-10-27 08:31 | PDOC ---
PROGRESS NOTES Chief Complaint Chief Complaint hypercalcemia, moderate, hydrate - nephrology consulted. 11.9-->11.2 with hydration alone, then back up hypernatremia hyperchloremia metastatic breast cancer - Dr. Millan to follow weakness and debility, PT and OT eval for safety Anemia due to malignancy and chemotherapy - check hemoglobin and transfuse if hemoglobin is less than 7 Leukopenia - due to chemotherapy. CBC daily Pleural effusion, malignant - Chest x-ray on 10/24/2018 revealed stable pleural effusions Constipation Stage I decubitus ulcer pt may consider hospice care soon History of Present Illness History of Present Illness Ms Hobson is a 78yo F w/ PMHx diabetes type 2, hypertension, Left breast cancer (2001) with relapse in 2017, now with metastatic disease (ER positive, CA negative, HER2/sven negative) to the bones and pleural space who last had chemotherapy treatment on Sunday last week and radiation 10/24/18 who presents to the ED today stating she received a phone call from the doctor's office to come to the ED and be admitted for high calcium (11.9). Calcium 11.2 on 10/26, now 11.6 today after pamindronate and IVF yesterday. C/o constipation and pain on her backside. Vitals Vitals Vital Signs Date Time Temp Pulse Resp B/P (MAP) Pulse Ox O2 Delivery O2 Flow Rate FiO2 10/27/18 07:36 Nasal Cannula 2.0 10/27/18 07:00 97.9 97 18 138/53 (81) 99 97.9 Physical Exam General: Alert, Cooperative, No acute distress, moderate distress Lungs: Crackles, Other Abdomen: Normal bowel sounds, Soft Labs LABS Laboratory Tests Test 10/26/18 11:03 10/26/18 16:51 10/26/18 20:53 10/27/18 04:20 Glucose (Fingerstick) 121 mg/dL (70-99) 167 mg/dL (70-99) 200 mg/dL (70-99) White Blood Count 3.1 x10^3/uL (4.0-11.0) Red Blood Count 2.80 x10^6/uL (3.50-5.40) Hemoglobin 7.8 g/dL (12.0-15.5) Hematocrit 24.1 % (36.0-47.0) Mean Corpuscular Volume 86 fL (79-100) Mean Corpuscular Hemoglobin 28 pg (25-35) Mean Corpuscular Hemoglobin Concent 32 g/dL (31-37) Red Cell Distribution Width 22.2 % (11.5-14.5) Platelet Count 220 x10^3/uL (140-400) Neutrophils (%) (Auto) 77 % (31-73) Lymphocytes (%) (Auto) 9 % (24-48) Monocytes (%) (Auto) 12 % (0-9) Eosinophils (%) (Auto) 2 % (0-3) Basophils (%) (Auto) 0 % (0-3) Neutrophils # (Auto) 2.4 x10^3/uL (1.8-7.7) Lymphocytes # (Auto) 0.3 x10^3/uL (1.0-4.8) Monocytes # (Auto) 0.4 x10^3/uL (0.0-1.1) Eosinophils # (Auto) 0.0 x10^3/uL (0.0-0.7) Basophils # (Auto) 0.0 x10^3/uL (0.0-0.2) Sodium Level 148 mmol/L (136-145) Potassium Level 4.6 mmol/L (3.5-5.1) Chloride Level 115 mmol/L (98-107) Carbon Dioxide Level 28 mmol/L (21-32) Anion Gap 5 (6-14) Blood Urea Nitrogen 30 mg/dL (7-20) Creatinine 0.6 mg/dL (0.6-1.0) Estimated GFR (Cockcroft-Gault) 117.6 Glucose Level 90 mg/dL (70-99) Calcium Level 11.6 mg/dL (8.5-10.1) Phosphorus Level 3.2 mg/dL (2.6-4.7) Albumin 2.1 g/dL (3.4-5.0) Test 10/27/18 07:49 Glucose (Fingerstick) 137 mg/dL (70-99) Assessment and Plan Assessmemt and Plan Problems Medical Problems: (1) Hypercalcemia Status: Acute Comment Review of Relevant I have reviewed the following items patrica (where applicable) has been applied. Labs Laboratory Tests Test 10/25/18 13:35 10/25/18 16:41 10/25/18 20:23 10/26/18 07:41 White Blood Count 2.6 x10^3/uL (4.0-11.0) Red Blood Count 2.87 x10^6/uL (3.50-5.40) Hemoglobin 7.9 g/dL (12.0-15.5) Hematocrit 24.6 % (36.0-47.0) Mean Corpuscular Volume 86 fL (79-100) Mean Corpuscular Hemoglobin 28 pg (25-35) Mean Corpuscular Hemoglobin Concent 32 g/dL (31-37) Red Cell Distribution Width 22.5 % (11.5-14.5) Platelet Count 233 x10^3/uL (140-400) Neutrophils (%) (Auto) 81 % (31-73) Lymphocytes (%) (Auto) 10 % (24-48) Monocytes (%) (Auto) 8 % (0-9) Eosinophils (%) (Auto) 1 % (0-3) Basophils (%) (Auto) 0 % (0-3) Neutrophils # (Auto) 2.1 x10^3/uL (1.8-7.7) Lymphocytes # (Auto) 0.3 x10^3/uL (1.0-4.8) Monocytes # (Auto) 0.2 x10^3/uL (0.0-1.1) Eosinophils # (Auto) 0.0 x10^3/uL (0.0-0.7) Basophils # (Auto) 0.0 x10^3/uL (0.0-0.2) Segmented Neutrophils % 81 % (35-66) Band Neutrophils % 1 % (0-9) Lymphocytes % 11 % (24-48) Monocytes % 3 % (0-10) Eosinophils % 2 % (0-5) Metamyelocytes % 2 % (0-0) Platelet Estimate Adequate (ADEQUATE) Polychromasia Present Hypochromasia Present Poikilocytosis Present Anisocytosis Mod Sodium Level 144 mmol/L (136-145) Potassium Level 5.0 mmol/L (3.5-5.1) Chloride Level 110 mmol/L (98-107) Carbon Dioxide Level 31 mmol/L (21-32) Anion Gap 3 (6-14) Blood Urea Nitrogen 30 mg/dL (7-20) Creatinine 0.7 mg/dL (0.6-1.0) Estimated GFR (Cockcroft-Gault) 98.4 BUN/Creatinine Ratio 43 (6-20) Glucose Level 404 mg/dL (70-99) Calcium Level 11.9 mg/dL (8.5-10.1) Total Bilirubin 0.2 mg/dL (0.2-1.0) Aspartate Amino Transf (AST/SGOT) 25 U/L (15-37) Alanine Aminotransferase (ALT/SGPT) 13 U/L (14-59) Alkaline Phosphatase 107 U/L (46-116) Total Protein 5.8 g/dL (6.4-8.2) Albumin 2.3 g/dL (3.4-5.0) Albumin/Globulin Ratio 0.7 (1.0-1.7) Glucose (Fingerstick) 316 mg/dL (70-99) 254 mg/dL (70-99) 99 mg/dL (70-99) Test 10/26/18 08:10 10/26/18 11:03 10/26/18 16:51 10/26/18 20:53 Sodium Level 148 mmol/L (136-145) Potassium Level 4.7 mmol/L (3.5-5.1) Chloride Level 112 mmol/L (98-107) Carbon Dioxide Level 31 mmol/L (21-32) Anion Gap 5 (6-14) Blood Urea Nitrogen 24 mg/dL (7-20) Creatinine 0.5 mg/dL (0.6-1.0) Estimated GFR (Cockcroft-Gault) 145.1 Glucose Level 98 mg/dL (70-99) Calcium Level 11.2 mg/dL (8.5-10.1) Ionized Calcium 1.72 mmol/L (1.13-1.32) Phosphorus Level 2.7 mg/dL (2.6-4.7) Glucose (Fingerstick) 121 mg/dL (70-99) 167 mg/dL (70-99) 200 mg/dL (70-99) Test 10/27/18 04:20 10/27/18 07:49 White Blood Count 3.1 x10^3/uL (4.0-11.0) Red Blood Count 2.80 x10^6/uL (3.50-5.40) Hemoglobin 7.8 g/dL (12.0-15.5) Hematocrit 24.1 % (36.0-47.0) Mean Corpuscular Volume 86 fL (79-100) Mean Corpuscular Hemoglobin 28 pg (25-35) Mean Corpuscular Hemoglobin Concent 32 g/dL (31-37) Red Cell Distribution Width 22.2 % (11.5-14.5) Platelet Count 220 x10^3/uL (140-400) Neutrophils (%) (Auto) 77 % (31-73) Lymphocytes (%) (Auto) 9 % (24-48) Monocytes (%) (Auto) 12 % (0-9) Eosinophils (%) (Auto) 2 % (0-3) Basophils (%) (Auto) 0 % (0-3) Neutrophils # (Auto) 2.4 x10^3/uL (1.8-7.7) Lymphocytes # (Auto) 0.3 x10^3/uL (1.0-4.8) Monocytes # (Auto) 0.4 x10^3/uL (0.0-1.1) Eosinophils # (Auto) 0.0 x10^3/uL (0.0-0.7) Basophils # (Auto) 0.0 x10^3/uL (0.0-0.2) Sodium Level 148 mmol/L (136-145) Potassium Level 4.6 mmol/L (3.5-5.1) Chloride Level 115 mmol/L (98-107) Carbon Dioxide Level 28 mmol/L (21-32) Anion Gap 5 (6-14) Blood Urea Nitrogen 30 mg/dL (7-20) Creatinine 0.6 mg/dL (0.6-1.0) Estimated GFR (Cockcroft-Gault) 117.6 Glucose Level 90 mg/dL (70-99) Calcium Level 11.6 mg/dL (8.5-10.1) Phosphorus Level 3.2 mg/dL (2.6-4.7) Albumin 2.1 g/dL (3.4-5.0) Glucose (Fingerstick) 137 mg/dL (70-99) Laboratory Tests Test 10/26/18 11:03 10/26/18 16:51 10/26/18 20:53 10/27/18 04:20 Glucose (Fingerstick) 121 mg/dL (70-99) 167 mg/dL (70-99) 200 mg/dL (70-99) White Blood Count 3.1 x10^3/uL (4.0-11.0) Red Blood Count 2.80 x10^6/uL (3.50-5.40) Hemoglobin 7.8 g/dL (12.0-15.5) Hematocrit 24.1 % (36.0-47.0) Mean Corpuscular Volume 86 fL (79-100) Mean Corpuscular Hemoglobin 28 pg (25-35) Mean Corpuscular Hemoglobin Concent 32 g/dL (31-37) Red Cell Distribution Width 22.2 % (11.5-14.5) Platelet Count 220 x10^3/uL (140-400) Neutrophils (%) (Auto) 77 % (31-73) Lymphocytes (%) (Auto) 9 % (24-48) Monocytes (%) (Auto) 12 % (0-9) Eosinophils (%) (Auto) 2 % (0-3) Basophils (%) (Auto) 0 % (0-3) Neutrophils # (Auto) 2.4 x10^3/uL (1.8-7.7) Lymphocytes # (Auto) 0.3 x10^3/uL (1.0-4.8) Monocytes # (Auto) 0.4 x10^3/uL (0.0-1.1) Eosinophils # (Auto) 0.0 x10^3/uL (0.0-0.7) Basophils # (Auto) 0.0 x10^3/uL (0.0-0.2) Sodium Level 148 mmol/L (136-145) Potassium Level 4.6 mmol/L (3.5-5.1) Chloride Level 115 mmol/L (98-107) Carbon Dioxide Level 28 mmol/L (21-32) Anion Gap 5 (6-14) Blood Urea Nitrogen 30 mg/dL (7-20) Creatinine 0.6 mg/dL (0.6-1.0) Estimated GFR (Cockcroft-Gault) 117.6 Glucose Level 90 mg/dL (70-99) Calcium Level 11.6 mg/dL (8.5-10.1) Phosphorus Level 3.2 mg/dL (2.6-4.7) Albumin 2.1 g/dL (3.4-5.0) Test 10/27/18 07:49 Glucose (Fingerstick) 137 mg/dL (70-99) Medications Current Medications Lidocaine/ Epinephrine (Let Topical) 3 ml STK-MED ONCE TP ; Start 10/25/18 at 12:24; Stop 10/25/18 at 12:24; Status DC Lidocaine/ Epinephrine (Let Topical) 3 ml 1X ONCE TP Last administered on 10/25/18at 12:38; Start 10/25/18 at 12:30; Stop 10/25/18 at 12:34; Status DC Acetaminophen/ Hydrocodone Bitart (Lortab 5/325) 1 tab 1X ONCE PO Last administered on 10/25/18at 12:49; Start 10/25/18 at 13:15; Stop 10/25/18 at 13:16; Status DC Ondansetron HCl (Zofran) 4 mg PRN Q8HRS PRN IV NAUSEA/VOMITING; Start 10/25/18 at 13:45; Stop 10/26/18 at 13:44; Status DC Morphine Sulfate (Morphine Sulfate) 4 mg PRN Q2HR PRN IV PAIN; Start 10/25/18 at 13:45; Stop 10/26/18 at 13:44; Status DC Acetaminophen (Tylenol) 650 mg PRN Q4HRS PRN PO FEVER Last administered on 10/26/18at 11:34; Start 10/25/18 at 13:45; Stop 10/26/18 at 13:44; Status DC Sodium Chloride 1,000 ml @ 125 mls/hr 1X ONCE IV Last administered on 10/25/18at 13:52; Start 10/25/18 at 13:45; Stop 10/25/18 at 21:44; Status DC Lidocaine/ Epinephrine (Let Topical) 3 ml 1X ONCE TP Last administered on 10/25/18at 15:58; Start 10/25/18 at 16:00; Stop 10/25/18 at 16:01; Status DC Albuterol Sulfate (Ventolin Neb Soln) 2.5 mg RTQID NEB Last administered on 10/27/18at 07:36; Start 10/25/18 at 20:00 Atorvastatin Calcium (Lipitor) 20 mg QHS PO Last administered on 10/26/18 20:58; Start 10/25/18 at 21:00 Bumetanide (Bumex) 0.5 mg PRN DAILY PRN PO EDEMA; Start 10/25/18 at 17:15 Diltiazem HCl (Cardizem 24hr Cd) 240 mg DAILY PO Last administered on 10/26/18 08:32; Start 10/25/18 at 17:30 Acetaminophen/ Hydrocodone Bitart (Lortab 5/325) 1 tab PRN Q6HRS PRN PO PAIN; Start 10/25/18 at 17:15 Labetalol HCl (Trandate) 200 mg BID PO Last administered on 10/26/18 20:58; Start 10/25/18 at 21:00 Losartan Potassium (Cozaar) 50 mg DAILY PO Last administered on 10/26/18 08:32; Start 10/25/18 at 17:30 Spironolactone (Aldactone) 25 mg PRN DAILY PRN PO EDEMA; Start 10/25/18 at 17:15 Budesonide (Pulmicort) 0.5 mg RTBID NEB Last administered on 10/27/18 07:36; Start 10/25/18 at 20:00 Vitamin D (Vitamin D3) 2,000 unit DAILY PO Last administered on 10/26/18 08:32; Start 10/26/18 at 09:00 Dronabinol (Marinol) 5 mg TIDAC PO Last administered on 10/27/18 08:14; Start 10/25/18 at 17:30 Insulin Glargine (Lantus Syringe) 25 unit QHS SQ Last administered on 10/26/18 20:58; Start 10/25/18 at 21:00 Insulin Human Lispro (HumaLOG) 15 units TIDWMEALS SQ Last administered on 10/26/18 17:23; Start 10/25/18 at 18:00 Insulin Human Lispro (HumaLOG) 0-7 UNITS TIDWMEALS SQ Last administered on 10/25/18 18:23; Start 10/25/18 at 17:30 Dextrose (Dextrose 50%-Water Syringe) 12.5 gm PRN Q15MIN PRN IV SEE COMMENTS; Start 10/25/18 at 17:15 Dextrose 250 ml PRN Q15MIN PRN IV SEE COMMENTS; Start 10/25/18 at 17:15 Polyethylene Glycol (miraLAX PACKET) 17 gm PRN DAILY PRN PO CONSTIPATION 1ST CHOICE; Start 10/25/18 at 17:30 Sodium Chloride 1,000 ml @ 100 mls/hr Q10H IV Last administered on 10/25/18at 23:25; Start 10/25/18 at 17:30; Stop 10/26/18 at 12:31; Status DC Polyethylene Glycol (miraLAX PACKET) 17 gm DAILY PO Last administered on 10/26/18at 08:32; Start 10/26/18 at 09:00 Docusate Sodium (Colace) 100 mg DAILY PO Last administered on 10/26/18at 08:32; Start 10/26/18 at 09:00 Docusate Sodium (Colace) 100 mg PRN DAILY PRN PO STOOL SOFTENER; Start 10/25/18 at 18:15 Magnesium Hydroxide (Milk Of Magnesia) 2,400 mg PRN DAILY PRN PO CONSTIPATION 2ND CHOICE; Start 10/25/18 at 20:15 Psyllium Hydrophilic Mucilloid (Metamucil Fiber Packet) 1 pkt DAILY PO Last administered on 10/26/18at 14:45; Start 10/26/18 at 13:45 Mirtazapine (Remeron) 7.5 mg QHS PO Last administered on 10/26/18at 20:58; Start 10/26/18 at 21:00 Pamidronate Disodium 60 mg/ Sodium Chloride 250 ml @ 83.333 mls/ hr 1X ONCE IV Last administered on 10/26/18at 14:45; Start 10/26/18 at 14:00; Stop 10/26/18 at 16:59; Status DC Active Scripts Active Humalog (Insulin Lispro) 100 Unit/1 Ml Insuln.pen 13 Units SQ TIDWMEALS 30 Days Lantus Solostar (Insulin Glargine,Hum.rec.anlog) 100 Unit/1 Ml Insuln.pen 22 Units SQ QHS 30 Days Mirtazapine 7.5 Mg Tablet 7.5 Mg PO QHS 30 Days Proair Hfa (Albuterol Sulfate) 8.5 Gm Hfa.aer.ad 2.5 Mg NEB RTQID 30 Days Reported Humalog (Insulin Lispro) 100 Unit/1 Ml Cartridge 15 Unit SQ TIDAFTMEAL Lantus Solostar (Insulin Glargine,Hum.rec.anlog) 100 Unit/1 Ml Insuln.pen 25 Unit SQ QHS Symbicort 160-4.5 Mcg Inhaler (Budesonide/Formoterol Fumarate) 10.2 Gm Hfa.aer.ad 2 Puff IH PRN BID PRN Hydrocodone-Apap 5-325 (Hydrocodone Bit/Acetaminophen) 1 Tab Tablet 1 Tab PO PRN Q6HRS PRN Marinol (Dronabinol) 5 Mg Capsule 5 Mg PO TID Bumetanide 1 Mg Tablet 0.5 Tab PO PRN Aldactone (Spironolactone) 25 Mg Tablet 25 Mg PO PRN DAILY Losartan Potassium 50 Mg Tablet 50 Mg PO DAILY Labetalol Hcl 200 Mg Tablet 200 Mg PO BID Cardizem Cd (Diltiazem Hcl) 240 Mg Cap.er.24h 240 Mg PO DAILY Atorvastatin Calcium 20 Mg Tablet 20 Mg PO DAILY Vitamin D3 (Cholecalciferol (Vitamin D3)) 2,000 Unit Tablet 2,000 Unit PO DAILY Vitals/I & O Vital Sign - Last 24 Hours 10/26/18 10/26/18 10/26/18 10/26/18 08:32 08:32 08:32 11:00 Temp 98.0 98.0 Pulse 108 108 108 93 Resp 20 B/P (MAP) 148/68 148/68 148/68 104/43 (63) Pulse Ox 99 O2 Delivery Nasal Cannula O2 Flow Rate 2.0 10/26/18 10/26/18 10/26/18 10/26/18 15:00 15:49 19:00 19:47 Temp 97.8 98.8 97.8 98.8 Pulse 89 105 Resp 20 20 B/P (MAP) 102/48 (66) 130/54 (79) Pulse Ox 100 97 97 O2 Delivery Nasal Cannula Nasal Cannula Nasal Cannula Nasal Cannula O2 Flow Rate 2.0 2.0 2.0 2.0 10/26/18 10/26/18 10/26/18 10/26/18 20:00 20:58 23:00 23:00 Temp 99.2 99.2 99.2 99.2 Pulse 105 93 Resp 18 B/P (MAP) 130/54 111/52 (71) 111/52 (71) Pulse Ox 100 O2 Delivery Nasal Cannula Nasal Cannula O2 Flow Rate 2.0 2.0 10/27/18 10/27/18 10/27/18 03:00 07:00 07:36 Temp 98.8 97.9 98.8 97.9 Pulse 103 97 Resp 22 18 B/P (MAP) 131/59 (83) 138/53 (81) Pulse Ox 100 99 O2 Delivery Nasal Cannula Nasal Cannula O2 Flow Rate 2.0 2.0 Intake and Output 10/26/18 10/26/18 10/27/18 14:59 22:59 06:59 Intake Total 400 ml 440 ml 480 ml Balance 400 ml 440 ml 480 ml KAITLIN BAH MD Oct 27, 2018 08:31
[2018-10-27] MEDS: LABETALOL HCL 200 MG TABLET PO SCH ×2 (09:28→20:29)
[2018-10-27] MEDS: CHOLECALCIFEROL (VITAMIN D3) 1,000 UNIT TABLET PO SCH (09:28)
[2018-10-27] MEDS: LOSARTAN POTASSIUM 50 MG TABLET. PO SCH (09:28)
[2018-10-27] MEDS: DOCUSATE SODIUM 100 MG CAPSULE. PO SCH (09:29)
[2018-10-27] MEDS: POLYETHYLENE GLYCOL 3350 17 GM PACKET. PO SCH (09:29)
[2018-10-27] MEDS ORDERED: IV 1/2 NORMAL SALINE 500 ML IV ONE (10:15)
[2018-10-27 11:05] VITALS: BP 132/58
[2018-10-27] MEDS: PSYLLIUM HUSK (SUGAR FREE) 1 PKT PACKET PO SCH (12:00)
[2018-10-27 15:00] VITALS: BP 129/62
[2018-10-27] MEDS: DEXTROSE 50% 25 GM / 50ML DISP.SYRIN. IV PRN (16:59)
[2018-10-27] MEDS: IV DEXTROSE 5 %-0.45 % NACL 1,000 ML IV SCH (18:20)
[2018-10-27 19:00] VITALS: BP 140/55
[2018-10-27] MEDS: ATORVASTATIN CALCIUM 20 MG TABLET PO SCH (20:29)
[2018-10-27] MEDS: MIRTAZAPINE 7.5 MG TABLET. PO SCH (20:29)
[2018-10-27] MEDS: INSULIN GLARGINE SYRINGE. SQ SCH (20:33)
[2018-10-27 23:00] VITALS: BP 130/48
[2018-10-28 03:00] VITALS: BP 130/59
[2018-10-28 07:00] VITALS: BP 111/42
[2018-10-28] MEDS: ALBUTEROL SULFATE 2.5 MG/3 ML NEBU. NEB SCH ×4 (07:20→20:16)
[2018-10-28] MEDS: BUDESONIDE 0.5 MG/2 ML NEBU. NEB SCH ×2 (07:20→20:16)
[2018-10-28] MEDS: INSULIN LISPRO 300 UNITS/3 ML VIAL. SQ SCH ×5 (07:40→18:05)
[2018-10-28] MEDS: DRONABINOL 2.5 MG CAPSULE. PO SCH ×3 (07:42→18:00)
[2018-10-28] MEDS: IV DEXTROSE 5 %-0.45 % NACL 1,000 ML IV SCH ×2 (07:43→21:04)
[2018-10-28] MEDS: DEXTROSE 50% 25 GM / 50ML DISP.SYRIN. IV PRN (07:45)
[2018-10-28 08:06] LABS: BASO % 0 % (0-3); EOS % 1 % (0-3); HEMATOCRIT 25.1 % (36.0-47.0); LYMPH # 0.3 x10^3/uL (1.0-4.8); LYMPH % 12 % (24-48); MEAN CORPUSCULAR HEMOGLOBIN 28 pg (25-35); MEAN CORPUSCULAR HGB CONC 32 g/dL (31-37); MEAN CORPUSCULAR VOLUME 87 fL (79-100); MONO # 0.3 x10^3/uL (0.0-1.1); MONO % 13 % (0-9); NEUT # 1.7 x10^3/uL (1.8-7.7); NEUT % 73 % (31-73); PLATELET COUNT 221 x10^3/uL (140-400); RED BLOOD COUNT 2.88 x10^6/uL (3.50-5.40); RED CELL DISTRIBUTION WIDTH 22.6 % (11.5-14.5); WHITE BLOOD COUNT 2.4 x10^3/uL (4.0-11.0)
[2018-10-28 08:06] LABS: ALBUMIN 2.1 g/dL (3.4-5.0); CREATININE 0.5 mg/dL (0.6-1.0); GFR 145.1; PHOSPHORUS 3.5 mg/dL (2.6-4.7); POTASSIUM 4.5 mmol/L (3.5-5.1)
--- NOTE | 2018-10-28 09:09 | PDOC ---
PROGRESS NOTES Subjective Subjective HPI - f/u of Stage 4 metastatic breast cancer ROS - no CP Objective Objective Vital Signs Date Time Temp Pulse Resp B/P (MAP) Pulse Ox O2 Delivery O2 Flow Rate FiO2 10/28/18 07:20 98 Nasal Cannula 2.0 10/28/18 07:00 98.4 94 16 111/42 (65) 98.4 Intake and Output 10/28/18 07:00 Intake Total 900 ml Balance 900 ml Intake Oral 900 ml # Voids 1 Physical Exam Heart: Normal S1, Normal S2 General: Alert, Oriented X3 Lungs: Clear to auscultation Neuro: Normal speech Psych/Mental Status: Mental status NL Assessment Assessment Problems Medical Problems: (1) Hypercalcemia Status: Acute (2) Hypernatremia Status: Acute (3) Metastatic breast cancer Status: Chronic IMPRESSION AND PLAN: 1. Stage 4 metastatic breast cancer with bone metastasis and pleural effusion and ascites. She was started on Abraxane due to disease progression with prior therapy. She has been on Abraxane since 06/21/2018. However, she developed worsening pleural effusion requiring thoracentesis on 10/11/2018 indicating progressive disease. She has now developed hypercalcemia. This is another sign of disease progression. Her performance status is poor. She spends most of her time sitting or lying at home. ECOG performance status is 3. Considering progressive disease despite chemotherapy and declining functional status, I have recommended to stop further chemotherapy and focus on comfort care and supportive care with the help of hospice. The patient understands and all her questions were answered. Her son Nikhil was also present during my discussion, who expressed that they would like to think about it and will decide in the next few days. 2. 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 I agree with IV hydration. s/p aredia 10/26/18 Ca now 11 3. 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 Continue to monitor hemoglobin and transfuse if hemoglobin is less than 7. Hb 8.0 4. Leukopenia due to chemotherapy. Continue to monitor. 5. Pleural effusion, malignant. Chest x-ray on 10/24/2018 revealed stable pleural effusions. Comment Review of Relevant I have reviewed the following items patrica (where applicable) has been applied. Labs Laboratory Tests Test 10/26/18 11:03 10/26/18 16:51 10/26/18 20:53 10/27/18 04:20 Glucose (Fingerstick) 121 mg/dL (70-99) 167 mg/dL (70-99) 200 mg/dL (70-99) White Blood Count 3.1 x10^3/uL (4.0-11.0) Red Blood Count 2.80 x10^6/uL (3.50-5.40) Hemoglobin 7.8 g/dL (12.0-15.5) Hematocrit 24.1 % (36.0-47.0) Mean Corpuscular Volume 86 fL (79-100) Mean Corpuscular Hemoglobin 28 pg (25-35) Mean Corpuscular Hemoglobin Concent 32 g/dL (31-37) Red Cell Distribution Width 22.2 % (11.5-14.5) Platelet Count 220 x10^3/uL (140-400) Neutrophils (%) (Auto) 77 % (31-73) Lymphocytes (%) (Auto) 9 % (24-48) Monocytes (%) (Auto) 12 % (0-9) Eosinophils (%) (Auto) 2 % (0-3) Basophils (%) (Auto) 0 % (0-3) Neutrophils # (Auto) 2.4 x10^3/uL (1.8-7.7) Lymphocytes # (Auto) 0.3 x10^3/uL (1.0-4.8) Monocytes # (Auto) 0.4 x10^3/uL (0.0-1.1) Eosinophils # (Auto) 0.0 x10^3/uL (0.0-0.7) Basophils # (Auto) 0.0 x10^3/uL (0.0-0.2) Sodium Level 148 mmol/L (136-145) Potassium Level 4.6 mmol/L (3.5-5.1) Chloride Level 115 mmol/L (98-107) Carbon Dioxide Level 28 mmol/L (21-32) Anion Gap 5 (6-14) Blood Urea Nitrogen 30 mg/dL (7-20) Creatinine 0.6 mg/dL (0.6-1.0) Estimated GFR (Cockcroft-Gault) 117.6 Glucose Level 90 mg/dL (70-99) Calcium Level 11.6 mg/dL (8.5-10.1) Phosphorus Level 3.2 mg/dL (2.6-4.7) Albumin 2.1 g/dL (3.4-5.0) Test 10/27/18 07:49 10/27/18 11:40 10/27/18 16:57 10/27/18 17:12 Glucose (Fingerstick) 137 mg/dL (70-99) 71 mg/dL (70-99) 45 mg/dL (70-99) 162 mg/dL (70-99) Test 10/27/18 20:34 10/28/18 06:15 10/28/18 06:45 10/28/18 07:34 Glucose (Fingerstick) 144 mg/dL (70-99) 66 mg/dL (70-99) Sodium Level 145 mmol/L (136-145) Potassium Level 4.5 mmol/L (3.5-5.1) Chloride Level 113 mmol/L (98-107) Carbon Dioxide Level 28 mmol/L (21-32) Anion Gap 4 (6-14) Blood Urea Nitrogen 26 mg/dL (7-20) Creatinine 0.5 mg/dL (0.6-1.0) Estimated GFR (Cockcroft-Gault) 145.1 Glucose Level 81 mg/dL (70-99) Calcium Level 11.0 mg/dL (8.5-10.1) Phosphorus Level 3.5 mg/dL (2.6-4.7) Albumin 2.1 g/dL (3.4-5.0) White Blood Count 2.4 x10^3/uL (4.0-11.0) Red Blood Count 2.88 x10^6/uL (3.50-5.40) Hemoglobin 8.0 g/dL (12.0-15.5) Hematocrit 25.1 % (36.0-47.0) Mean Corpuscular Volume 87 fL (79-100) Mean Corpuscular Hemoglobin 28 pg (25-35) Mean Corpuscular Hemoglobin Concent 32 g/dL (31-37) Red Cell Distribution Width 22.6 % (11.5-14.5) Platelet Count 221 x10^3/uL (140-400) Neutrophils (%) (Auto) 73 % (31-73) Lymphocytes (%) (Auto) 12 % (24-48) Monocytes (%) (Auto) 13 % (0-9) Eosinophils (%) (Auto) 1 % (0-3) Basophils (%) (Auto) 0 % (0-3) Neutrophils # (Auto) 1.7 x10^3/uL (1.8-7.7) Lymphocytes # (Auto) 0.3 x10^3/uL (1.0-4.8) Monocytes # (Auto) 0.3 x10^3/uL (0.0-1.1) Eosinophils # (Auto) 0.0 x10^3/uL (0.0-0.7) Basophils # (Auto) 0.0 x10^3/uL (0.0-0.2) Test 10/28/18 07:53 Glucose (Fingerstick) 144 mg/dL (70-99) Laboratory Tests Test 10/27/18 11:40 10/27/18 16:57 10/27/18 17:12 10/27/18 20:34 Glucose (Fingerstick) 71 mg/dL (70-99) 45 mg/dL (70-99) 162 mg/dL (70-99) 144 mg/dL (70-99) Test 10/28/18 06:15 10/28/18 06:45 10/28/18 07:34 10/28/18 07:53 Sodium Level 145 mmol/L (136-145) Potassium Level 4.5 mmol/L (3.5-5.1) Chloride Level 113 mmol/L (98-107) Carbon Dioxide Level 28 mmol/L (21-32) Anion Gap 4 (6-14) Blood Urea Nitrogen 26 mg/dL (7-20) Creatinine 0.5 mg/dL (0.6-1.0) Estimated GFR (Cockcroft-Gault) 145.1 Glucose Level 81 mg/dL (70-99) Calcium Level 11.0 mg/dL (8.5-10.1) Phosphorus Level 3.5 mg/dL (2.6-4.7) Albumin 2.1 g/dL (3.4-5.0) White Blood Count 2.4 x10^3/uL (4.0-11.0) Red Blood Count 2.88 x10^6/uL (3.50-5.40) Hemoglobin 8.0 g/dL (12.0-15.5) Hematocrit 25.1 % (36.0-47.0) Mean Corpuscular Volume 87 fL (79-100) Mean Corpuscular Hemoglobin 28 pg (25-35) Mean Corpuscular Hemoglobin Concent 32 g/dL (31-37) Red Cell Distribution Width 22.6 % (11.5-14.5) Platelet Count 221 x10^3/uL (140-400) Neutrophils (%) (Auto) 73 % (31-73) Lymphocytes (%) (Auto) 12 % (24-48) Monocytes (%) (Auto) 13 % (0-9) Eosinophils (%) (Auto) 1 % (0-3) Basophils (%) (Auto) 0 % (0-3) Neutrophils # (Auto) 1.7 x10^3/uL (1.8-7.7) Lymphocytes # (Auto) 0.3 x10^3/uL (1.0-4.8) Monocytes # (Auto) 0.3 x10^3/uL (0.0-1.1) Eosinophils # (Auto) 0.0 x10^3/uL (0.0-0.7) Basophils # (Auto) 0.0 x10^3/uL (0.0-0.2) Glucose (Fingerstick) 66 mg/dL (70-99) 144 mg/dL (70-99) Medications Current Medications Lidocaine/ Epinephrine (Let Topical) 3 ml STK-MED ONCE TP ; Start 10/25/18 at 12:24; Stop 10/25/18 at 12:24; Status DC Lidocaine/ Epinephrine (Let Topical) 3 ml 1X ONCE TP Last administered on 10/25/18at 12:38; Start 10/25/18 at 12:30; Stop 10/25/18 at 12:34; Status DC Acetaminophen/ Hydrocodone Bitart (Lortab 5/325) 1 tab 1X ONCE PO Last administered on 10/25/18at 12:49; Start 10/25/18 at 13:15; Stop 10/25/18 at 13:16; Status DC Ondansetron HCl (Zofran) 4 mg PRN Q8HRS PRN IV NAUSEA/VOMITING; Start 10/25/18 at 13:45; Stop 10/26/18 at 13:44; Status DC Morphine Sulfate (Morphine Sulfate) 4 mg PRN Q2HR PRN IV PAIN; Start 10/25/18 at 13:45; Stop 10/26/18 at 13:44; Status DC Acetaminophen (Tylenol) 650 mg PRN Q4HRS PRN PO FEVER Last administered on 10/26/18 11:34; Start 10/25/18 at 13:45; Stop 10/26/18 at 13:44; Status DC Sodium Chloride 1,000 ml @ 125 mls/hr 1X ONCE IV Last administered on 10/25/18 13:52; Start 10/25/18 at 13:45; Stop 10/25/18 at 21:44; Status DC Lidocaine/ Epinephrine (Let Topical) 3 ml 1X ONCE TP Last administered on 10/25/18 15:58; Start 10/25/18 at 16:00; Stop 10/25/18 at 16:01; Status DC Albuterol Sulfate (Ventolin Neb Soln) 2.5 mg RTQID NEB Last administered on 10/28/18 07:20; Start 10/25/18 at 20:00 Atorvastatin Calcium (Lipitor) 20 mg QHS PO Last administered on 10/27/18 20:33; Start 10/25/18 at 21:00 Bumetanide (Bumex) 0.5 mg PRN DAILY PRN PO EDEMA; Start 10/25/18 at 17:15 Diltiazem HCl (Cardizem 24hr Cd) 240 mg DAILY PO Last administered on 10/27/18 09:42; Start 10/25/18 at 17:30 Acetaminophen/ Hydrocodone Bitart (Lortab 5/325) 1 tab PRN Q6HRS PRN PO PAIN; Start 10/25/18 at 17:15 Labetalol HCl (Trandate) 200 mg BID PO Last administered on 10/27/18 20:33; Start 10/25/18 at 21:00 Losartan Potassium (Cozaar) 50 mg DAILY PO Last administered on 10/27/18 09:42; Start 10/25/18 at 17:30 Spironolactone (Aldactone) 25 mg PRN DAILY PRN PO EDEMA; Start 10/25/18 at 17:15 Budesonide (Pulmicort) 0.5 mg RTBID NEB Last administered on 10/28/18 07:20; Start 10/25/18 at 20:00 Vitamin D (Vitamin D3) 2,000 unit DAILY PO Last administered on 10/27/18 09:42; Start 10/26/18 at 09:00; Stop 10/28/18 at 08:57; Status DC Dronabinol (Marinol) 5 mg TIDAC PO Last administered on 10/28/18 07:45; Start 10/25/18 at 17:30 Insulin Glargine (Lantus Syringe) 25 unit QHS SQ Last administered on 10/27/18 20:33; Start 10/25/18 at 21:00 Insulin Human Lispro (HumaLOG) 15 units TIDWMEALS SQ Last administered on 10/27/18 09:42; Start 10/25/18 at 18:00 Insulin Human Lispro (HumaLOG) 0-7 UNITS TIDWMEALS SQ Last administered on 10/25/18 18:23; Start 10/25/18 at 17:30 Dextrose (Dextrose 50%-Water Syringe) 12.5 gm PRN Q15MIN PRN IV SEE COMMENTS Last administered on 10/28/18 07:45; Start 10/25/18 at 17:15 Dextrose 250 ml PRN Q15MIN PRN IV SEE COMMENTS; Start 10/25/18 at 17:15 Polyethylene Glycol (miraLAX PACKET) 17 gm PRN DAILY PRN PO CONSTIPATION 1ST CHOICE; Start 10/25/18 at 17:30 Sodium Chloride 1,000 ml @ 100 mls/hr Q10H IV Last administered on 10/25/18 23:25; Start 10/25/18 at 17:30; Stop 10/26/18 at 12:31; Status DC Polyethylene Glycol (miraLAX PACKET) 17 gm DAILY PO Last administered on 10/27/18 09:42; Start 10/26/18 at 09:00 Docusate Sodium (Colace) 100 mg DAILY PO Last administered on 10/27/18 09:42; Start 10/26/18 at 09:00 Docusate Sodium (Colace) 100 mg PRN DAILY PRN PO STOOL SOFTENER; Start 10/25/18 at 18:15 Magnesium Hydroxide (Milk Of Magnesia) 2,400 mg PRN DAILY PRN PO CONSTIPATION 2ND CHOICE; Start 10/25/18 at 20:15 Psyllium Hydrophilic Mucilloid (Metamucil Fiber Packet) 1 pkt DAILY PO Last administered on 10/27/18at 12:05; Start 10/26/18 at 13:45 Mirtazapine (Remeron) 7.5 mg QHS PO Last administered on 10/27/18at 20:33; Start 10/26/18 at 21:00 Pamidronate Disodium 60 mg/ Sodium Chloride 250 ml @ 83.333 mls/ hr 1X ONCE IV Last administered on 10/26/18at 14:45; Start 10/26/18 at 14:00; Stop 10/26/18 at 16:59; Status DC Sodium Chloride 500 ml @ 0 mls/hr 1X ONCE IV Last administered on 10/27/18at 12:05; Start 10/27/18 at 10:15; Stop 10/27/18 at 10:17; Status DC Dextrose/Sodium Chloride 1,000 ml @ 75 mls/hr [id number] IV Last administered on 10/28/18at 07:45; Start 10/27/18 at 17:30 Active Scripts Active Humalog (Insulin Lispro) 100 Unit/1 Ml Insuln.pen 13 Units SQ TIDWMEALS 30 Days Lantus Solostar (Insulin Glargine,Hum.rec.anlog) 100 Unit/1 Ml Insuln.pen 22 Units SQ QHS 30 Days Mirtazapine 7.5 Mg Tablet 7.5 Mg PO QHS 30 Days Proair Hfa (Albuterol Sulfate) 8.5 Gm Hfa.aer.ad 2.5 Mg NEB RTQID 30 Days Reported Humalog (Insulin Lispro) 100 Unit/1 Ml Cartridge 15 Unit SQ TIDAFTMEAL Lantus Solostar (Insulin Glargine,Hum.rec.anlog) 100 Unit/1 Ml Insuln.pen 25 Unit SQ QHS Symbicort 160-4.5 Mcg Inhaler (Budesonide/Formoterol Fumarate) 10.2 Gm Hf a.aer.ad 2 Puff IH PRN BID PRN Hydrocodone-Apap 5-325 (Hydrocodone Bit/Acetaminophen) 1 Tab Tablet 1 Tab PO PRN Q6HRS PRN Marinol (Dronabinol) 5 Mg Capsule 5 Mg PO TID Bumetanide 1 Mg Tablet 0.5 Tab PO PRN Aldactone (Spironolactone) 25 Mg Tablet 25 Mg PO PRN DAILY Losartan Potassium 50 Mg Tablet 50 Mg PO DAILY Labetalol Hcl 200 Mg Tablet 200 Mg PO BID Cardizem Cd (Diltiazem Hcl) 240 Mg Cap.er.24h 240 Mg PO DAILY Atorvastatin Calcium 20 Mg Tablet 20 Mg PO DAILY Vitamin D3 (Cholecalciferol (Vitamin D3)) 2,000 Unit Tablet 2,000 Unit PO DAILY Vitals/I & O Vital Sign - Last 24 Hours 10/27/18 10/27/18 10/27/18 10/27/18 09:42 09:42 09:42 11:05 Temp 97.8 97.8 Pulse 97 97 97 92 Resp 18 B/P (MAP) 138/53 138/53 138/53 132/58 (82) Pulse Ox 99 O2 Delivery Nasal Cannula O2 Flow Rate 2.0 10/27/18 10/27/18 10/27/18 10/27/18 11:21 15:00 15:46 19:00 Temp 97.8 97.8 97.8 97.8 Pulse 90 90 Resp 18 B/P (MAP) 129/62 (84) 140/55 (83) Pulse Ox 99 99 97 99 O2 Delivery Nasal Cannula Nasal Cannula Nasal Cannula Nasal Cannula O2 Flow Rate 2.0 2.0 2.0 2.0 10/27/18 10/27/18 10/27/18 10/27/18 19:59 20:00 20:00 20:33 Pulse 90 B/P (MAP) 140/55 Pulse Ox 95 95 O2 Delivery Nasal Cannula Nasal Cannula Nasal Cannula O2 Flow Rate 2.0 2.0 2.0 10/27/18 10/28/18 10/28/18 10/28/18 23:00 03:00 07:00 07:20 Temp 98.8 99.2 98.4 98.8 99.2 98.4 Pulse 101 102 94 Resp 18 20 16 B/P (MAP) 130/48 (75) 130/59 (82) 111/42 (65) Pulse Ox 98 95 92 98 O2 Delivery Nasal Cannula Nasal Cannula Nasal Cannula Nasal Cannula O2 Flow Rate 2.0 2.0 2.0 2.0 Intake and Output 10/27/18 10/27/18 10/28/18 15:00 23:00 07:00 Intake Total 600 ml 300 ml 0 ml Balance 600 ml 300 ml 0 ml FRANKIE MUNROE MD Oct 28, 2018 09:09
[2018-10-28] MEDS: PSYLLIUM HUSK (SUGAR FREE) 1 PKT PACKET PO SCH (10:18)
[2018-10-28] MEDS: POLYETHYLENE GLYCOL 3350 17 GM PACKET. PO SCH (10:18)
[2018-10-28] MEDS: LOSARTAN POTASSIUM 50 MG TABLET. PO SCH (10:18)
[2018-10-28] MEDS: DOCUSATE SODIUM 100 MG CAPSULE. PO SCH (10:19)
[2018-10-28] MEDS: LABETALOL HCL 200 MG TABLET PO SCH ×2 (10:19→21:09)
[2018-10-28 11:00] VITALS: BP 115/48
[2018-10-28] MEDS ORDERED: TEMAZEPAM 7.5 MG CAPSULE PO PRN (12:15)
[2018-10-28] MEDS ORDERED: ONDANSETRON PF 4 MG/2 ML VIAL. IV PRN (12:15)
[2018-10-28] MEDS ORDERED: ACETAMINOPHEN/CODEINE 300/30MG TABLET. PO PRN (12:15)
--- NOTE | 2018-10-28 13:08 | NUR ---
Pt lunchtime dose of insulin not given. This RN spoke with Dr. Robertson. Orders received to hold insulin. No new orders at this time. Will continue to monitor the pt.
[2018-10-28] MEDS ORDERED: MAGNESIUM HYDROXIDE 2,400 MG/30 ML ORAL.SUSP. PO ONE (14:00)
--- NOTE | 2018-10-28 14:02 | PDOC ---
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 Pleural effusion, malignant - Chest x-ray on 10/24/2018 revealed stable pleural effusions Constipation Stage I decubitus ulcer History of Present Illness History of Present Illness Calcium down to 11 from 11.9 On 75 mL dectrose IVF and status post Aredia Discussed with heme onc-apparently patient or family not ready for hospice PT recommend SNU if she will not go for hospice SOme hYPOGLYCEMIA today,despite dextrose IVF Plan: consult social work and palliative-discharge disposition is either snu or hospice cleared to go home by heme onc with that level of calcium Dc any insulin bowel regimen dw RN Vitals Vitals Vital Signs Date Time Temp Pulse Resp B/P (MAP) Pulse Ox O2 Delivery O2 Flow Rate FiO2 10/28/18 11:26 97 Nasal Cannula 2.0 10/28/18 11:00 98.2 90 16 115/48 (70) 98.2 Physical Exam General: Alert, Oriented X3 Heart: Normal S1, Normal S2 Lungs: Crackles, Other Abdomen: Normal bowel sounds, Soft Labs LABS Laboratory Tests Test 10/27/18 16:57 10/27/18 17:12 10/27/18 20:34 10/28/18 06:15 Glucose (Fingerstick) 45 mg/dL (70-99) 162 mg/dL (70-99) 144 mg/dL (70-99) Sodium Level 145 mmol/L (136-145) Potassium Level 4.5 mmol/L (3.5-5.1) Chloride Level 113 mmol/L (98-107) Carbon Dioxide Level 28 mmol/L (21-32) Anion Gap 4 (6-14) Blood Urea Nitrogen 26 mg/dL (7-20) Creatinine 0.5 mg/dL (0.6-1.0) Estimated GFR (Cockcroft-Gault) 145.1 Glucose Level 81 mg/dL (70-99) Calcium Level 11.0 mg/dL (8.5-10.1) Phosphorus Level 3.5 mg/dL (2.6-4.7) Albumin 2.1 g/dL (3.4-5.0) Test 10/28/18 06:45 10/28/18 07:34 10/28/18 07:53 10/28/18 10:50 White Blood Count 2.4 x10^3/uL (4.0-11.0) Red Blood Count 2.88 x10^6/uL (3.50-5.40) Hemoglobin 8.0 g/dL (12.0-15.5) Hematocrit 25.1 % (36.0-47.0) Mean Corpuscular Volume 87 fL (79-100) Mean Corpuscular Hemoglobin 28 pg (25-35) Mean Corpuscular Hemoglobin Concent 32 g/dL (31-37) Red Cell Distribution Width 22.6 % (11.5-14.5) Platelet Count 221 x10^3/uL (140-400) Neutrophils (%) (Auto) 73 % (31-73) Lymphocytes (%) (Auto) 12 % (24-48) Monocytes (%) (Auto) 13 % (0-9) Eosinophils (%) (Auto) 1 % (0-3) Basophils (%) (Auto) 0 % (0-3) Neutrophils # (Auto) 1.7 x10^3/uL (1.8-7.7) Lymphocytes # (Auto) 0.3 x10^3/uL (1.0-4.8) Monocytes # (Auto) 0.3 x10^3/uL (0.0-1.1) Eosinophils # (Auto) 0.0 x10^3/uL (0.0-0.7) Basophils # (Auto) 0.0 x10^3/uL (0.0-0.2) Glucose (Fingerstick) 66 mg/dL (70-99) 144 mg/dL (70-99) 153 mg/dL (70-99) Test 10/28/18 12:43 Glucose (Fingerstick) 135 mg/dL (70-99) Review of Systems Review of Systems weak constipated, the rest of ROS 14 point negative Assessment and Plan Assessmemt and Plan Problems Medical Problems: (1) Hypercalcemia Status: Acute (2) Hypernatremia Status: Acute (3) Metastatic breast cancer Status: Chronic Comment Review of Relevant I have reviewed the following items patrica (where applicable) has been applied. Labs Laboratory Tests Test 10/26/18 16:51 10/26/18 20:53 10/27/18 04:20 10/27/18 07:49 Glucose (Fingerstick) 167 mg/dL (70-99) 200 mg/dL (70-99) 137 mg/dL (70-99) White Blood Count 3.1 x10^3/uL (4.0-11.0) Red Blood Count 2.80 x10^6/uL (3.50-5.40) Hemoglobin 7.8 g/dL (12.0-15.5) Hematocrit 24.1 % (36.0-47.0) Mean Corpuscular Volume 86 fL (79-100) Mean Corpuscular Hemoglobin 28 pg (25-35) Mean Corpuscular Hemoglobin Concent 32 g/dL (31-37) Red Cell Distribution Width 22.2 % (11.5-14.5) Platelet Count 220 x10^3/uL (140-400) Neutrophils (%) (Auto) 77 % (31-73) Lymphocytes (%) (Auto) 9 % (24-48) Monocytes (%) (Auto) 12 % (0-9) Eosinophils (%) (Auto) 2 % (0-3) Basophils (%) (Auto) 0 % (0-3) Neutrophils # (Auto) 2.4 x10^3/uL (1.8-7.7) Lymphocytes # (Auto) 0.3 x10^3/uL (1.0-4.8) Monocytes # (Auto) 0.4 x10^3/uL (0.0-1.1) Eosinophils # (Auto) 0.0 x10^3/uL (0.0-0.7) Basophils # (Auto) 0.0 x10^3/uL (0.0-0.2) Sodium Level 148 mmol/L (136-145) Potassium Level 4.6 mmol/L (3.5-5.1) Chloride Level 115 mmol/L (98-107) Carbon Dioxide Level 28 mmol/L (21-32) Anion Gap 5 (6-14) Blood Urea Nitrogen 30 mg/dL (7-20) Creatinine 0.6 mg/dL (0.6-1.0) Estimated GFR (Cockcroft-Gault) 117.6 Glucose Level 90 mg/dL (70-99) Calcium Level 11.6 mg/dL (8.5-10.1) Phosphorus Level 3.2 mg/dL (2.6-4.7) Albumin 2.1 g/dL (3.4-5.0) Test 10/27/18 11:40 10/27/18 16:57 10/27/18 17:12 10/27/18 20:34 Glucose (Fingerstick) 71 mg/dL (70-99) 45 mg/dL (70-99) 162 mg/dL (70-99) 144 mg/dL (70-99) Test 10/28/18 06:15 10/28/18 06:45 10/28/18 07:34 10/28/18 07:53 Sodium Level 145 mmol/L (136-145) Potassium Level 4.5 mmol/L (3.5-5.1) Chloride Level 113 mmol/L (98-107) Carbon Dioxide Level 28 mmol/L (21-32) Anion Gap 4 (6-14) Blood Urea Nitrogen 26 mg/dL (7-20) Creatinine 0.5 mg/dL (0.6-1.0) Estimated GFR (Cockcroft-Gault) 145.1 Glucose Level 81 mg/dL (70-99) Calcium Level 11.0 mg/dL (8.5-10.1) Phosphorus Level 3.5 mg/dL (2.6-4.7) Albumin 2.1 g/dL (3.4-5.0) White Blood Count 2.4 x10^3/uL (4.0-11.0) Red Blood Count 2.88 x10^6/uL (3.50-5.40) Hemoglobin 8.0 g/dL (12.0-15.5) Hematocrit 25.1 % (36.0-47.0) Mean Corpuscular Volume 87 fL (79-100) Mean Corpuscular Hemoglobin 28 pg (25-35) Mean Corpuscular Hemoglobin Concent 32 g/dL (31-37) Red Cell Distribution Width 22.6 % (11.5-14.5) Platelet Count 221 x10^3/uL (140-400) Neutrophils (%) (Auto) 73 % (31-73) Lymphocytes (%) (Auto) 12 % (24-48) Monocytes (%) (Auto) 13 % (0-9) Eosinophils (%) (Auto) 1 % (0-3) Basophils (%) (Auto) 0 % (0-3) Neutrophils # (Auto) 1.7 x10^3/uL (1.8-7.7) Lymphocytes # (Auto) 0.3 x10^3/uL (1.0-4.8) Monocytes # (Auto) 0.3 x10^3/uL (0.0-1.1) Eosinophils # (Auto) 0.0 x10^3/uL (0.0-0.7) Basophils # (Auto) 0.0 x10^3/uL (0.0-0.2) Glucose (Fingerstick) 66 mg/dL (70-99) 144 mg/dL (70-99) Test 10/28/18 10:50 10/28/18 12:43 Glucose (Fingerstick) 153 mg/dL (70-99) 135 mg/dL (70-99) Laboratory Tests Test 10/27/18 16:57 10/27/18 17:12 10/27/18 20:34 10/28/18 06:15 Glucose (Fingerstick) 45 mg/dL (70-99) 162 mg/dL (70-99) 144 mg/dL (70-99) Sodium Level 145 mmol/L (136-145) Potassium Level 4.5 mmol/L (3.5-5.1) Chloride Level 113 mmol/L (98-107) Carbon Dioxide Level 28 mmol/L (21-32) Anion Gap 4 (6-14) Blood Urea Nitrogen 26 mg/dL (7-20) Creatinine 0.5 mg/dL (0.6-1.0) Estimated GFR (Cockcroft-Gault) 145.1 Glucose Level 81 mg/dL (70-99) Calcium Level 11.0 mg/dL (8.5-10.1) Phosphorus Level 3.5 mg/dL (2.6-4.7) Albumin 2.1 g/dL (3.4-5.0) Test 10/28/18 06:45 10/28/18 07:34 10/28/18 07:53 10/28/18 10:50 White Blood Count 2.4 x10^3/uL (4.0-11.0) Red Blood Count 2.88 x10^6/uL (3.50-5.40) Hemoglobin 8.0 g/dL (12.0-15.5) Hematocrit 25.1 % (36.0-47.0) Mean Corpuscular Volume 87 fL (79-100) Mean Corpuscular Hemoglobin 28 pg (25-35) Mean Corpuscular Hemoglobin Concent 32 g/dL (31-37) Red Cell Distribution Width 22.6 % (11.5-14.5) Platelet Count 221 x10^3/uL (140-400) Neutrophils (%) (Auto) 73 % (31-73) Lymphocytes (%) (Auto) 12 % (24-48) Monocytes (%) (Auto) 13 % (0-9) Eosinophils (%) (Auto) 1 % (0-3) Basophils (%) (Auto) 0 % (0-3) Neutrophils # (Auto) 1.7 x10^3/uL (1.8-7.7) Lymphocytes # (Auto) 0.3 x10^3/uL (1.0-4.8) Monocytes # (Auto) 0.3 x10^3/uL (0.0-1.1) Eosinophils # (Auto) 0.0 x10^3/uL (0.0-0.7) Basophils # (Auto) 0.0 x10^3/uL (0.0-0.2) Glucose (Fingerstick) 66 mg/dL (70-99) 144 mg/dL (70-99) 153 mg/dL (70-99) Test 10/28/18 12:43 Glucose (Fingerstick) 135 mg/dL (70-99) Medications Current Medications Lidocaine/ Epinephrine (Let Topical) 3 ml STK-MED ONCE TP ; Start 10/25/18 at 12:24; Stop 10/25/18 at 12:24; Status DC Lidocaine/ Epinephrine (Let Topical) 3 ml 1X ONCE TP Last administered on 10/25/18at 12:38; Start 10/25/18 at 12:30; Stop 10/25/18 at 12:34; Status DC Acetaminophen/ Hydrocodone Bitart (Lortab 5/325) 1 tab 1X ONCE PO Last administered on 10/25/18at 12:49; Start 10/25/18 at 13:15; Stop 10/25/18 at 13:16; Status DC Ondansetron HCl (Zofran) 4 mg PRN Q8HRS PRN IV NAUSEA/VOMITING; Start 10/25/18 at 13:45; Stop 10/26/18 at 13:44; Status DC Morphine Sulfate (Morphine Sulfate) 4 mg PRN Q2HR PRN IV PAIN; Start 10/25/18 at 13:45; Stop 10/26/18 at 13:44; Status DC Acetaminophen (Tylenol) 650 mg PRN Q4HRS PRN PO FEVER Last administered on 10/26/18 11:34; Start 10/25/18 at 13:45; Stop 10/26/18 at 13:44; Status DC Sodium Chloride 1,000 ml @ 125 mls/hr 1X ONCE IV Last administered on 10/25/18 13:52; Start 10/25/18 at 13:45; Stop 10/25/18 at 21:44; Status DC Lidocaine/ Epinephrine (Let Topical) 3 ml 1X ONCE TP Last administered on 10/25/18at 15:58; Start 10/25/18 at 16:00; Stop 10/25/18 at 16:01; Status DC Albuterol Sulfate (Ventolin Neb Soln) 2.5 mg RTQID NEB Last administered on 10/28/18 11:26; Start 10/25/18 at 20:00 Atorvastatin Calcium (Lipitor) 20 mg QHS PO Last administered on 10/27/18at 20:33; Start 10/25/18 at 21:00 Bumetanide (Bumex) 0.5 mg PRN DAILY PRN PO EDEMA; Start 10/25/18 at 17:15 Diltiazem HCl (Cardizem 24hr Cd) 240 mg DAILY PO Last administered on 10/28/18at 10:19; Start 10/25/18 at 17:30 Acetaminophen/ Hydrocodone Bitart (Lortab 5/325) 1 tab PRN Q6HRS PRN PO PAIN; Start 10/25/18 at 17:15 Labetalol HCl (Trandate) 200 mg BID PO Last administered on 10/28/18 10:19; Start 10/25/18 at 21:00 Losartan Potassium (Cozaar) 50 mg DAILY PO Last administered on 10/28/18 10:19; Start 10/25/18 at 17:30 Spironolactone (Aldactone) 25 mg PRN DAILY PRN PO EDEMA; Start 10/25/18 at 17:15 Budesonide (Pulmicort) 0.5 mg RTBID NEB Last administered on 10/28/18 07:20; Start 10/25/18 at 20:00 Vitamin D (Vitamin D3) 2,000 unit DAILY PO Last administered on 10/27/18 09:42; Start 10/26/18 at 09:00; Stop 10/28/18 at 08:57; Status DC Dronabinol (Marinol) 5 mg TIDAC PO Last administered on 10/28/18 12:15; Start 10/25/18 at 17:30 Insulin Glargine (Lantus Syringe) 25 unit QHS SQ Last administered on 10/27/18 20:33; Start 10/25/18 at 21:00 Insulin Human Lispro (HumaLOG) 15 units TIDWMEALS SQ Last administered on 10/27/18 09:42; Start 10/25/18 at 18:00 Insulin Human Lispro (HumaLOG) 0-7 UNITS TIDWMEALS SQ Last administered on 10/25/18 18:23; Start 10/25/18 at 17:30 Dextrose (Dextrose 50%-Water Syringe) 12.5 gm PRN Q15MIN PRN IV SEE COMMENTS Last administered on 10/28/18 07:45; Start 10/25/18 at 17:15 Dextrose 250 ml PRN Q15MIN PRN IV SEE COMMENTS; Start 10/25/18 at 17:15 Polyethylene Glycol (miraLAX PACKET) 17 gm PRN DAILY PRN PO CONSTIPATION 1ST CHOICE; Start 10/25/18 at 17:30 Sodium Chloride 1,000 ml @ 100 mls/hr Q10H IV Last administered on 10/25/18 23:25; Start 10/25/18 at 17:30; Stop 10/26/18 at 12:31; Status DC Polyethylene Glycol (miraLAX PACKET) 17 gm DAILY PO Last administered on 10/28/18 10:19; Start 10/26/18 at 09:00 Docusate Sodium (Colace) 100 mg DAILY PO Last administered on 9/9/19at 10:19; Start 10/26/18 at 09:00 Docusate Sodium (Colace) 100 mg PRN DAILY PRN PO STOOL SOFTENER; Start 10/25/18 at 18:15 Magnesium Hydroxide (Milk Of Magnesia) 2,400 mg PRN DAILY PRN PO CONSTIPATION 2ND CHOICE; Start 10/25/18 at 20:15 Psyllium Hydrophilic Mucilloid (Metamucil Fiber Packet) 1 pkt DAILY PO Last administered on 10/28/18at 10:19; Start 10/26/18 at 13:45 Mirtazapine (Remeron) 7.5 mg QHS PO Last administered on 10/27/18at 20:33; Start 10/26/18 at 21:00 Pamidronate Disodium 60 mg/ Sodium Chloride 250 ml @ 83.333 mls/ hr 1X ONCE IV Last administered on 10/26/18at 14:45; Start 10/26/18 at 14:00; Stop 10/26/18 at 16:59; Status DC Sodium Chloride 500 ml @ 0 mls/hr 1X ONCE IV Last administered on 10/27/18at 12:05; Start 10/27/18 at 10:15; Stop 10/27/18 at 10:17; Status DC Dextrose/Sodium Chloride 1,000 ml @ 75 mls/hr [id number] IV Last administered on 10/28/18at 07:45; Start 10/27/18 at 17:30 Ondansetron HCl (Zofran) 4 mg PRN Q6HRS PRN IV NAUSEA/VOMITING; Start 10/28/18 at 12:15 Acetaminophen (Tylenol) 500 mg PRN Q6HRS PRN PO MILD PAIN / TEMP; Start 10/28/18 at 12:15 Acetaminophen/ Codeine Phosphate (Tylenol #3) 1 tab PRN Q6HRS PRN PO PAIN; Start 10/28/18 at 12:15 Temazepam (Restoril) 7.5 mg PRN QHS PRN PO INSOMNIA; Start 10/28/18 at 12:15 Active Scripts Active Humalog (Insulin Lispro) 100 Unit/1 Ml Insuln.pen 13 Units SQ TIDWMEALS 30 Days Lantus Solostar (Insulin Glargine,Hum.rec.anlog) 100 Unit/1 Ml Insuln.pen 22 Units SQ QHS 30 Days Mirtazapine 7.5 Mg Tablet 7.5 Mg PO QHS 30 Days Proair Hfa (Albuterol Sulfate) 8.5 Gm Hfa.aer.ad 2.5 Mg NEB RTQID 30 Days Reported Humalog (Insulin Lispro) 100 Unit/1 Ml Cartridge 15 Unit SQ TIDAFTMEAL Lantus Solostar (Insulin Glargine,Hum.rec.anlog) 100 Unit/1 Ml Insuln.pen 25 Unit SQ QHS Symbicort 160-4.5 Mcg Inhaler (Budesonide/Formoterol Fumarate) 10.2 Gm Hfa.aer.ad 2 Puff IH PRN BID PRN Hydrocodone-Apap 5-325 (Hydrocodone Bit/Acetaminophen) 1 Tab Tablet 1 Tab PO PRN Q6HRS PRN Marinol (Dronabinol) 5 Mg Capsule 5 Mg PO TID Bumetanide 1 Mg Tablet 0.5 Tab PO PRN Aldactone (Spironolactone) 25 Mg Tablet 25 Mg PO PRN DAILY Losartan Potassium 50 Mg Tablet 50 Mg PO DAILY Labetalol Hcl 200 Mg Tablet 200 Mg PO BID Cardizem Cd (Diltiazem Hcl) 240 Mg Cap.er.24h 240 Mg PO DAILY Atorvastatin Calcium 20 Mg Tablet 20 Mg PO DAILY Vitamin D3 (Cholecalciferol (Vitamin D3)) 2,000 Unit Tablet 2,000 Unit PO DAILY Vitals/I & O Vital Sign - Last 24 Hours 10/27/18 10/27/18 10/27/18 10/27/18 15:00 15:46 19:00 19:59 Temp 97.8 97.8 97.8 97.8 Pulse 90 90 Resp 18 18 B/P (MAP) 129/62 (84) 140/55 (83) Pulse Ox 99 97 99 95 O2 Delivery Nasal Cannula Nasal Cannula Nasal Cannula Nasal Cannula O2 Flow Rate 2.0 2.0 2.0 2.0 10/27/18 10/27/18 10/27/18 10/27/18 20:00 20:00 20:33 23:00 Temp 98.8 98.8 Pulse 90 101 Resp 18 B/P (MAP) 140/55 130/48 (75) Pulse Ox 95 98 O2 Delivery Nasal Cannula Nasal Cannula Nasal Cannula O2 Flow Rate 2.0 2.0 2.0 10/28/18 10/28/18 10/28/18 10/28/18 03:00 07:00 07:20 10:19 Temp 99.2 98.4 99.2 98.4 Pulse 102 94 94 Resp 20 16 B/P (MAP) 130/59 (82) 111/42 (65) 111/42 Pulse Ox 95 92 98 O2 Delivery Nasal Cannula Nasal Cannula Nasal Cannula O2 Flow Rate 2.0 2.0 2.0 10/28/18 10/28/18 10/28/18 10/28/18 10:19 10:19 11:00 11:26 Temp 98.2 98.2 Pulse 94 94 90 Resp 16 B/P (MAP) 111/42 111/42 115/48 (70) Pulse Ox 92 97 O2 Delivery Nasal Cannula Nasal Cannula O2 Flow Rate 2.0 2.0 Intake and Output 10/27/18 10/27/18 10/28/18 15:00 23:00 07:00 Intake Total 600 ml 300 ml 0 ml Balance 600 ml 300 ml 0 ml NITIN WEAVER MD Oct 28, 2018 14:02
[2018-10-28] MEDS ORDERED: HYDR-2761 PO (14:15)
[2018-10-28] MEDS ORDERED: IV DEXTROSE 5% 250 ML BAG. IV PRN (14:15)
[2018-10-28] MEDS ORDERED: DEXTROSE 50% 25 GM / 50ML DISP.SYRIN. IV PRN (14:15)
--- NOTE | 2018-10-28 14:16 | SNU/HH DC ---
DISCHARGE ORDERS DISCHARGE INFORMATION: DISCHARGE DATE: Oct 28, 2018 FINAL DIAGNOSIS Problems Medical Problems: (1) Hypercalcemia Status: Acute (2) Hypernatremia Status: Acute (3) Metastatic breast cancer Status: Chronic CONDITION ON DISCHARGE: Stable CODE STATUS: Code Status: Full DETENTION: SNF STAY <30 DAYS: Yes HOSPICE: HOSPICE: No HOSPICE EVAL & TREAT: No LTAC: ADMIT TO LTAC: No POST DISCHARGE ORDERS: ACTIVITY ORDERS: Activity as tolerated WEIGHT BEARING STATUS: Full weight bearing, As tolerated DIET AFTER DISCHARGE: Low Sodium 2 gm WOUND/INCISION CARE: Ice to area for comfort, Change dressing, May get incision wet CHECKS AFTER DISCHARGE: CHECKS AFTER DISCHARGE: Check blood press - daily TREATMENT/EQUIPMENT ORDERS: ADAPTIVE EQUIPMENT NEEDED: None RESPIRATORY EQUIPMENT NEEDED: Oxygen Physical Therapy For: Evalulation/Treatment Occupational Therapy For: Evaluation/Treatment DISCHARGE MEDICATIONS: Home Meds Active Scripts Hydrocodone Bit/Acetaminophen (HYDROCODONE-APAP 5-325 ) 1 Tab Tablet, 1 TAB PO PRN Q6HRS PRN for PAIN, #20 TAB 0 Refills Prov:NITIN WEAVER MD 10/28/18 Insulin Lispro (HUMALOG) 100 Unit/1 Ml Insuln.pen, 13 UNITS SQ TIDWMEALS for DIABETES for 30 Days, #1 EACH Prov:KOSTAS RODRIGUEZ MD 06/21/18 Insulin Glargine,Hum.rec.anlog (LANTUS SOLOSTAR) 100 Unit/1 Ml Insuln.pen, 22 UNITS SQ QHS for DIABETES for 30 Days, #1 EACH Prov:KOSTAS RODRIGUEZ MD 06/21/18 Mirtazapine (MIRTAZAPINE) 7.5 Mg Tablet, 7.5 MG PO QHS for MOOD for 30 Days, #30 TAB Prov:KOSTAS RODRIGUEZ MD 06/21/18 Albuterol Sulfate (Proair Hfa) 8.5 Gm Hfa.aer.ad, 2.5 MG NEB RTQID for WHEEZING for 30 Days, #1 INHALER Prov:KOSTAS RODRIGUEZ MD 06/21/18 Reported Medications Insulin Lispro (HUMALOG) 100 Unit/1 Ml Cartridge, 15 UNIT SQ TIDAFTMEAL for DM II , EACH 10/25/18 Insulin Glargine,Hum.rec.anlog (LANTUS SOLOSTAR) 100 Unit/1 Ml Insuln.pen, 25 UNIT SQ QHS for DM II , #15 ML 5 Refills 10/25/18 Budesonide/Formoterol Fumarate (SYMBICORT 160-4.5 MCG INHALER) 10.2 Gm Hfa.aer.a d, 2 PUFF IH PRN BID PRN for COUGH, #10.6 GM 3 Refills 10/25/18 Dronabinol (MARINOL) 5 Mg Capsule, 5 MG PO TID for appetite , CAP 10/25/18 Bumetanide (BUMETANIDE) 1 Mg Tablet, 0.5 TAB PO PRN for edema, #90 TAB 1 Refill 10/25/18 Spironolactone (ALDACTONE) 25 Mg Tablet, 25 MG PO PRN DAILY for edema 10/15/18 Losartan Potassium (LOSARTAN POTASSIUM) 50 Mg Tablet, 50 MG PO DAILY for HYPERTENSION 10/15/18 Labetalol Hcl (LABETALOL HCL) 200 Mg Tablet, 200 MG PO BID for HTN 10/15/18 Diltiazem Hcl (CARDIZEM CD) 240 Mg Cap.er.24h, 240 MG PO DAILY for FOR HYPERTENSION 10/15/18 Atorvastatin Calcium (ATORVASTATIN CALCIUM) 20 Mg Tablet, 20 MG PO DAILY for HLD 06/11/18 Cholecalciferol (Vitamin D3) (VITAMIN D3) 2,000 Unit Tablet, 2000 UNIT PO DAILY, TAB 03/01/17 Discontinued Reported Medications [Abraxane IV] No Conflict Check, IV per protocol for Metastatic breast cancer 10/15/18 Oxycodone/Apap 5-325 (PERCOCET 5-325 MG TABLET ) 1 Each Tablet, 1 TAB PO PRN Q6HRS PRN for PAIN 10/15/18 Magnesium Oxide (MAG-OXIDE) 400 Mg Tablet 06/11/18 Potassium Chloride (Klor-Con 10) 10 Meq Tablet.er 06/11/18 Furosemide (FUROSEMIDE) 40 Mg Tablet 06/11/18 Denosumab (XGEVA) 120 Mg/1.7 Ml Vial, 120 MG SQ monthly for Bone mets 03/27/17 Calcium Carbonate (CALCIUM) 500 Mg Tablet, 500 MG PO DAILY, TAB 03/01/17 Montelukast Sodium (MONTELUKAST SODIUM TABLET ) 10 Mg Tablet, 10 MG PO HS for FOR ASTHMA 02/06/17 NITIN WEAVER MD Oct 28, 2018 14:16
--- NOTE | 2018-10-28 14:56 | NUR ---
Wound Care Pt seen for wound care consultation, see wound assessment. Pt has a small Stage III pressure ulcer on her coccyx, red, with some slough present, fairly superficial. Area cleaned and redressed with a Hydrocolloid and foam dressing, change every 3-4 days and prn if soiled. No other wounds noted on full skin inspection, pt is on a P500 bed, and a wheelchair cushion has been ordered at this time, POC discussed with RN.
[2018-10-28 15:00] VITALS: BP 120/54
--- NOTE | 2018-10-28 15:36 | NUR ---
SW following pt consulted for dc planning. Chart reviewed and discussed with RN. Pt lives at home with family and has been getting chemo tx. PT/OT recommends SNU. Spoke with Pt's son, Nikhil, Phone: [phone] about SNU, HH and Hospice. Pt's son reported they do not want to pursue hospice but agreeable to speak with Palliative care. Pt's son chose [facility] and also [facility] if pt chooses to go home. SW faxed referral to [facility] and left a VM to [facility]. Referral also faxed to [facility]. Pt's son is concerned regarding pt's Calcium level- RN notified. Pt acceptance and admission pending. Will continue to follow.
--- NOTE | 2018-10-28 16:27 | NUR ---
[facility] has accepted pt and will provide a bed tomorrow. Discussed with CM regarding pt's current insurance status ([employer], Medicare vs [employer]). Pt's son notified.
--- NOTE | 2018-10-28 16:30 | PDOC2 ---
PALLIATIVE CARE Palliative Care Note Palliative Care Consult requested by Dr. Robertson to address discharge plan and goals of care. Medical Assessment; Hypercalcemia. Hx. of Breast Ca with bone mets, pleural effusion and ascites. Generalized weakness. Did refuse PT/OT today. Calcium 11 Spoke with Andrez son/DPOA. and patient. Patient and son want to go to [facility] for SNU Understand that PT/OT may not benefit patient. Plan is for her to go home after PT/OT Discussed Code Status; Request Full Code for now. Understands the risks and benefits of resuscitation. Will follow-up in am Patient has been accepted at [facility]. EPIFANIO GARNICA Oct 28, 2018 16:30
--- NOTE | 2018-10-28 16:53 | PDOC ---
Renal-Progress Notes Subjective Notes Notes NONE History of Present Illness Hx of present illness NO ACUTE CHANGES Vitals Vitals Vital Signs Date Time Temp Pulse Resp B/P (MAP) Pulse Ox O2 Delivery O2 Flow Rate FiO2 10/28/18 16:07 Nasal Cannula 1.0 10/28/18 15:00 98.2 90 16 120/54 (76) 92 98.2 Weight Weight [ ] I.O. Intake and Output Intake and Output 10/28/18 07:00 Intake Total 900 ml Balance 900 ml Intake Oral 900 ml # Voids 1 Labs Labs Laboratory Tests Test 10/27/18 16:57 10/27/18 17:12 10/27/18 20:34 10/28/18 06:15 Glucose (Fingerstick) 45 mg/dL (70-99) 162 mg/dL (70-99) 144 mg/dL (70-99) Sodium Level 145 mmol/L (136-145) Potassium Level 4.5 mmol/L (3.5-5.1) Chloride Level 113 mmol/L (98-107) Carbon Dioxide Level 28 mmol/L (21-32) Anion Gap 4 (6-14) Blood Urea Nitrogen 26 mg/dL (7-20) Creatinine 0.5 mg/dL (0.6-1.0) Estimated GFR (Cockcroft-Gault) 145.1 Glucose Level 81 mg/dL (70-99) Calcium Level 11.0 mg/dL (8.5-10.1) Phosphorus Level 3.5 mg/dL (2.6-4.7) Albumin 2.1 g/dL (3.4-5.0) Test 10/28/18 06:45 10/28/18 07:34 10/28/18 07:53 10/28/18 10:50 White Blood Count 2.4 x10^3/uL (4.0-11.0) Red Blood Count 2.88 x10^6/uL (3.50-5.40) Hemoglobin 8.0 g/dL (12.0-15.5) Hematocrit 25.1 % (36.0-47.0) Mean Corpuscular Volume 87 fL (79-100) Mean Corpuscular Hemoglobin 28 pg (25-35) Mean Corpuscular Hemoglobin Concent 32 g/dL (31-37) Red Cell Distribution Width 22.6 % (11.5-14.5) Platelet Count 221 x10^3/uL (140-400) Neutrophils (%) (Auto) 73 % (31-73) Lymphocytes (%) (Auto) 12 % (24-48) Monocytes (%) (Auto) 13 % (0-9) Eosinophils (%) (Auto) 1 % (0-3) Basophils (%) (Auto) 0 % (0-3) Neutrophils # (Auto) 1.7 x10^3/uL (1.8-7.7) Lymphocytes # (Auto) 0.3 x10^3/uL (1.0-4.8) Monocytes # (Auto) 0.3 x10^3/uL (0.0-1.1) Eosinophils # (Auto) 0.0 x10^3/uL (0.0-0.7) Basophils # (Auto) 0.0 x10^3/uL (0.0-0.2) Glucose (Fingerstick) 66 mg/dL (70-99) 144 mg/dL (70-99) 153 mg/dL (70-99) Test 10/28/18 12:43 10/28/18 16:18 Glucose (Fingerstick) 135 mg/dL (70-99) 230 mg/dL (70-99) Review of Systems Constitutional: yes: weakness, alert Eyes: Yes: no symptom reported Cardiovascular: Yes no symptom reported Genitourinary: Yes: no symptom reported Musculoskeletal: Yes: muscle stiffness Skin: Yes no symptom reported Psychiatric/Neurological: Yes: no symptom reported Physical Exam General Appearance: no apparent distress Skin: warm Respiratory: decreased breath sounds Heart: S1S2 Abdomen: soft, bowel sounds present Genitourinary: bladder flat Extremities: pulses present Neurology: alert Assessment Assessment IMP HYPERCALCEMIA-IMPROVED MET STAGE 4 BREAST CANCER PLAN PLANS FOR [facility] NOTED S/P BISPHOSPHONATE WILL SIGN OFF ONC FOLLOWING ILIANA CLARK MD Oct 28, 2018 16:53
[2018-10-28 19:00] VITALS: BP 104/36
[2018-10-28] MEDS: MIRTAZAPINE 7.5 MG TABLET. PO SCH (21:09)
[2018-10-28] MEDS: ATORVASTATIN CALCIUM 20 MG TABLET PO SCH (21:09)
[2018-10-28 23:00] VITALS: BP 130/43
[2018-10-29 03:00] VITALS: BP 116/41
[2018-10-29 07:00] VITALS: BP 120/44
[2018-10-29] MEDS: ALBUTEROL SULFATE 2.5 MG/3 ML NEBU. NEB SCH ×4 (07:20→19:25)
[2018-10-29] MEDS: BUDESONIDE 0.5 MG/2 ML NEBU. NEB SCH ×2 (07:20→19:25)
[2018-10-29 08:17] LABS: BASO % 0 % (0-3); EOS % 1 % (0-3); HEMATOCRIT 26.9 % (36.0-47.0); HEMOGLOBIN 8.5 g/dL (12.0-15.5); LYMPH # 0.3 x10^3/uL (1.0-4.8); LYMPH % 11 % (24-48); MEAN CORPUSCULAR HEMOGLOBIN 27 pg (25-35); MEAN CORPUSCULAR HGB CONC 32 g/dL (31-37); MEAN CORPUSCULAR VOLUME 86 fL (79-100); MONO # 0.3 x10^3/uL (0.0-1.1); MONO % 12 % (0-9); NEUT # 1.7 x10^3/uL (1.8-7.7); NEUT % 75 % (31-73); PLATELET COUNT 207 x10^3/uL (140-400); RED BLOOD COUNT 3.14 x10^6/uL (3.50-5.40); RED CELL DISTRIBUTION WIDTH 22.1 % (11.5-14.5); WHITE BLOOD COUNT 2.3 x10^3/uL (4.0-11.0)
[2018-10-29] MEDS: DOCUSATE SODIUM 100 MG CAPSULE. PO SCH (08:32)
[2018-10-29] MEDS: LABETALOL HCL 200 MG TABLET PO SCH ×2 (08:33→21:00)
[2018-10-29] MEDS: LOSARTAN POTASSIUM 50 MG TABLET. PO SCH (08:33)
[2018-10-29] MEDS: POLYETHYLENE GLYCOL 3350 17 GM PACKET. PO SCH (08:34)
[2018-10-29] MEDS: PSYLLIUM HUSK (SUGAR FREE) 1 PKT PACKET PO SCH (08:34)
[2018-10-29] MEDS: DRONABINOL 2.5 MG CAPSULE. PO SCH ×3 (08:34→17:33)
[2018-10-29] MEDS: IV DEXTROSE 5 %-0.45 % NACL 1,000 ML IV SCH (08:35)
[2018-10-29 08:39] LABS: ALBUMIN 2.2 g/dL (3.4-5.0); CALCIUM 10.5 mg/dL (8.5-10.1); CREATININE 0.7 mg/dL (0.6-1.0); GFR 98.4
[2018-10-29] MEDS: INSULIN LISPRO 300 UNITS/3 ML VIAL. SQ SCH ×3 (08:43→17:37)
--- NOTE | 2018-10-29 09:26 | PDOC ---
PROGRESS NOTES Subjective Subjective HPI -f/u of Stage 4 metastatic breast cancer ROS - no CP Objective Objective Vital Signs Date Time Temp Pulse Resp B/P (MAP) Pulse Ox O2 Delivery O2 Flow Rate FiO2 10/29/18 08:43 102 120/44 10/29/18 07:20 99 Nasal Cannula 1.0 10/29/18 07:00 97.6 20 97.6 Intake and Output 10/29/18 06:59 Intake Total 2590 ml Balance 2590 ml Intake Oral 590 ml IV Total 2000 ml # Bowel Movements 2 Physical Exam Heart: Normal S1, Normal S2 General: Alert, Oriented X3, No acute distress Lungs: Clear to auscultation Neuro: Normal speech Psych/Mental Status: Mental status NL Assessment Assessment Problems Medical Problems: (1) Hypercalcemia Status: Acute (2) Hypernatremia Status: Acute (3) Metastatic breast cancer Status: Chronic IMPRESSION AND PLAN: 1. Stage 4 metastatic breast cancer with bone metastasis and pleural effusion and ascites. She was started on Abraxane due to disease progression with prior therapy. She has been on Abraxane since 06/21/2018. However, she developed worsening pleural effusion requiring thoracentesis on 10/11/2018 indicating progressive disease. She has now developed hypercalcemia. This is another sign of disease progression. Her performance status is poor. She spends most of her time sitting or lying at home. ECOG performance status is 3. Considering progressive disease despite chemotherapy and declining functional status, I have recommended to stop further chemotherapy and focus on comfort care and supportive care with the help of hospice. The patient understands and all her questions were answered. Her son Nikhil was also present during my discussion, who expressed that they would like to think about it and will decide in the next few days. 2. 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 I agree with IV hydration. s/p aredia 10/26/18 Ca now 11 3. 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 Continue to monitor hemoglobin and transfuse if hemoglobin is less than 7. Hb 8.5. 4. Leukopenia due to chemotherapy. Continue to monitor. 5. Pleural effusion, malignant. Chest x-ray on 10/24/2018 revealed stable pleural effusions. Comment Review of Relevant I have reviewed the following items patrica (where applicable) has been applied. Labs Laboratory Tests Test 10/27/18 11:40 10/27/18 16:57 10/27/18 17:12 10/27/18 20:34 Glucose (Fingerstick) 71 mg/dL (70-99) 45 mg/dL (70-99) 162 mg/dL (70-99) 144 mg/dL (70-99) Test 10/28/18 06:15 10/28/18 06:45 10/28/18 07:34 10/28/18 07:53 Sodium Level 145 mmol/L (136-145) Potassium Level 4.5 mmol/L (3.5-5.1) Chloride Level 113 mmol/L (98-107) Carbon Dioxide Level 28 mmol/L (21-32) Anion Gap 4 (6-14) Blood Urea Nitrogen 26 mg/dL (7-20) Creatinine 0.5 mg/dL (0.6-1.0) Estimated GFR (Cockcroft-Gault) 145.1 Glucose Level 81 mg/dL (70-99) Calcium Level 11.0 mg/dL (8.5-10.1) Phosphorus Level 3.5 mg/dL (2.6-4.7) Albumin 2.1 g/dL (3.4-5.0) White Blood Count 2.4 x10^3/uL (4.0-11.0) Red Blood Count 2.88 x10^6/uL (3.50-5.40) Hemoglobin 8.0 g/dL (12.0-15.5) Hematocrit 25.1 % (36.0-47.0) Mean Corpuscular Volume 87 fL (79-100) Mean Corpuscular Hemoglobin 28 pg (25-35) Mean Corpuscular Hemoglobin Concent 32 g/dL (31-37) Red Cell Distribution Width 22.6 % (11.5-14.5) Platelet Count 221 x10^3/uL (140-400) Neutrophils (%) (Auto) 73 % (31-73) Lymphocytes (%) (Auto) 12 % (24-48) Monocytes (%) (Auto) 13 % (0-9) Eosinophils (%) (Auto) 1 % (0-3) Basophils (%) (Auto) 0 % (0-3) Neutrophils # (Auto) 1.7 x10^3/uL (1.8-7.7) Lymphocytes # (Auto) 0.3 x10^3/uL (1.0-4.8) Monocytes # (Auto) 0.3 x10^3/uL (0.0-1.1) Eosinophils # (Auto) 0.0 x10^3/uL (0.0-0.7) Basophils # (Auto) 0.0 x10^3/uL (0.0-0.2) Glucose (Fingerstick) 66 mg/dL (70-99) 144 mg/dL (70-99) Test 10/28/18 10:50 10/28/18 12:43 10/28/18 16:18 10/28/18 20:41 Glucose (Fingerstick) 153 mg/dL (70-99) 135 mg/dL (70-99) 230 mg/dL (70-99) 270 mg/dL (70-99) Test 10/29/18 07:10 10/29/18 07:44 White Blood Count 2.3 x10^3/uL (4.0-11.0) Red Blood Count 3.14 x10^6/uL (3.50-5.40) Hemoglobin 8.5 g/dL (12.0-15.5) Hematocrit 26.9 % (36.0-47.0) Mean Corpuscular Volume 86 fL (79-100) Mean Corpuscular Hemoglobin 27 pg (25-35) Mean Corpuscular Hemoglobin Concent 32 g/dL (31-37) Red Cell Distribution Width 22.1 % (11.5-14.5) Platelet Count 207 x10^3/uL (140-400) Neutrophils (%) (Auto) 75 % (31-73) Lymphocytes (%) (Auto) 11 % (24-48) Monocytes (%) (Auto) 12 % (0-9) Eosinophils (%) (Auto) 1 % (0-3) Basophils (%) (Auto) 0 % (0-3) Neutrophils # (Auto) 1.7 x10^3/uL (1.8-7.7) Lymphocytes # (Auto) 0.3 x10^3/uL (1.0-4.8) Monocytes # (Auto) 0.3 x10^3/uL (0.0-1.1) Eosinophils # (Auto) 0.0 x10^3/uL (0.0-0.7) Basophils # (Auto) 0.0 x10^3/uL (0.0-0.2) Carbon Dioxide Level 28 mmol/L (21-32) Blood Urea Nitrogen 29 mg/dL (7-20) Creatinine 0.7 mg/dL (0.6-1.0) Estimated GFR (Cockcroft-Gault) 98.4 Glucose Level 300 mg/dL (70-99) Calcium Level 10.5 mg/dL (8.5-10.1) Phosphorus Level 3.0 mg/dL (2.6-4.7) Albumin 2.2 g/dL (3.4-5.0) Glucose (Fingerstick) 309 mg/dL (70-99) Laboratory Tests Test 10/28/18 10:50 10/28/18 12:43 10/28/18 16:18 10/28/18 20:41 Glucose (Fingerstick) 153 mg/dL (70-99) 135 mg/dL (70-99) 230 mg/dL (70-99) 270 mg/dL (70-99) Test 10/29/18 07:10 10/29/18 07:44 White Blood Count 2.3 x10^3/uL (4.0-11.0) Red Blood Count 3.14 x10^6/uL (3.50-5.40) Hemoglobin 8.5 g/dL (12.0-15.5) Hematocrit 26.9 % (36.0-47.0) Mean Corpuscular Volume 86 fL (79-100) Mean Corpuscular Hemoglobin 27 pg (25-35) Mean Corpuscular Hemoglobin Concent 32 g/dL (31-37) Red Cell Distribution Width 22.1 % (11.5-14.5) Platelet Count 207 x10^3/uL (140-400) Neutrophils (%) (Auto) 75 % (31-73) Lymphocytes (%) (Auto) 11 % (24-48) Monocytes (%) (Auto) 12 % (0-9) Eosinophils (%) (Auto) 1 % (0-3) Basophils (%) (Auto) 0 % (0-3) Neutrophils # (Auto) 1.7 x10^3/uL (1.8-7.7) Lymphocytes # (Auto) 0.3 x10^3/uL (1.0-4.8) Monocytes # (Auto) 0.3 x10^3/uL (0.0-1.1) Eosinophils # (Auto) 0.0 x10^3/uL (0.0-0.7) Basophils # (Auto) 0.0 x10^3/uL (0.0-0.2) Carbon Dioxide Level 28 mmol/L (21-32) Blood Urea Nitrogen 29 mg/dL (7-20) Creatinine 0.7 mg/dL (0.6-1.0) Estimated GFR (Cockcroft-Gault) 98.4 Glucose Level 300 mg/dL (70-99) Calcium Level 10.5 mg/dL (8.5-10.1) Phosphorus Level 3.0 mg/dL (2.6-4.7) Albumin 2.2 g/dL (3.4-5.0) Glucose (Fingerstick) 309 mg/dL (70-99) Medications Current Medications Lidocaine/ Epinephrine (Let Topical) 3 ml STK-MED ONCE TP ; Start 10/25/18 at 12:24; Stop 10/25/18 at 12:24; Status DC Lidocaine/ Epinephrine (Let Topical) 3 ml 1X ONCE TP Last administered on 10/25/18at 12:38; Start 10/25/18 at 12:30; Stop 10/25/18 at 12:34; Status DC Acetaminophen/ Hydrocodone Bitart (Lortab 5/325) 1 tab 1X ONCE PO Last administered on 10/25/18at 12:49; Start 10/25/18 at 13:15; Stop 10/25/18 at 13:16; Status DC Ondansetron HCl (Zofran) 4 mg PRN Q8HRS PRN IV NAUSEA/VOMITING; Start 10/25/18 at 13:45; Stop 10/26/18 at 13:44; Status DC Morphine Sulfate (Morphine Sulfate) 4 mg PRN Q2HR PRN IV PAIN; Start 10/25/18 at 13:45; Stop 10/26/18 at 13:44; Status DC Acetaminophen (Tylenol) 650 mg PRN Q4HRS PRN PO FEVER Last administered on at 11:34; Start 10/25/18 at 13:45; Stop 10/26/18 at 13:44; Status DC Sodium Chloride 1,000 ml @ 125 mls/hr 1X ONCE IV Last administered on 10/25/18 13:52; Start 10/25/18 at 13:45; Stop 10/25/18 at 21:44; Status DC Lidocaine/ Epinephrine (Let Topical) 3 ml 1X ONCE TP Last administered on 10/25/18 15:58; Start 10/25/18 at 16:00; Stop 10/25/18 at 16:01; Status DC Albuterol Sulfate (Ventolin Neb Soln) 2.5 mg RTQID NEB Last administered on 10/29/18 07:20; Start 10/25/18 at 20:00 Atorvastatin Calcium (Lipitor) 20 mg QHS PO Last administered on 10/28/18 21:10; Start 10/25/18 at 21:00 Bumetanide (Bumex) 0.5 mg PRN DAILY PRN PO EDEMA; Start 10/25/18 at 17:15 Diltiazem HCl (Cardizem 24hr Cd) 240 mg DAILY PO Last administered on 10/29/18 08:43; Start 10/25/18 at 17:30 Acetaminophen/ Hydrocodone Bitart (Lortab 5/325) 1 tab PRN Q6HRS PRN PO PAIN; Start 10/25/18 at 17:15 Labetalol HCl (Trandate) 200 mg BID PO Last administered on 10/29/18 08:43; Start 10/25/18 at 21:00 Losartan Potassium (Cozaar) 50 mg DAILY PO Last administered on 10/29/18 08:43; Start 10/25/18 at 17:30 Spironolactone (Aldactone) 25 mg PRN DAILY PRN PO EDEMA; Start 10/25/18 at 17:15 Budesonide (Pulmicort) 0.5 mg RTBID NEB Last administered on 10/29/18 07:20; Start 10/25/18 at 20:00 Vitamin D (Vitamin D3) 2,000 unit DAILY PO Last administered on 10/27/18 09:42; Start 10/26/18 at 09:00; Stop 10/28/18 at 08:57; Status DC Dronabinol (Marinol) 5 mg TIDAC PO Last administered on 9/10/19at 08:43; Start 10/25/18 at 17:30 Insulin Glargine (Lantus Syringe) 25 unit QHS SQ Last administered on 10/27/18 20:33; Start 10/25/18 at 21:00; Stop 10/28/18 at 14:03; Status DC Insulin Human Lispro (HumaLOG) 15 units TIDWMEALS SQ Last administered on 10/27/18 09:42; Start 10/25/18 at 18:00; Stop 10/28/18 at 14:03; Status DC Insulin Human Lispro (HumaLOG) 0-7 UNITS TIDWMEALS SQ Last administered on 10/25/18at 18:23; Start 10/25/18 at 17:30; Stop 10/28/18 at 14:03; Status DC Dextrose (Dextrose 50%-Water Syringe) 12.5 gm PRN Q15MIN PRN IV SEE COMMENTS Last administered on 10/28/18 07:45; Start 10/25/18 at 17:15; Stop 10/28/18 at 15:16; Status DC Dextrose 250 ml PRN Q15MIN PRN IV SEE COMMENTS; Start 10/25/18 at 17:15 Polyethylene Glycol (miraLAX PACKET) 17 gm PRN DAILY PRN PO CONSTIPATION 1ST CHOICE; Start 10/25/18 at 17:30 Sodium Chloride 1,000 ml @ 100 mls/hr Q10H IV Last administered on 10/25/18 23:25; Start 10/25/18 at 17:30; Stop 10/26/18 at 12:31; Status DC Polyethylene Glycol (miraLAX PACKET) 17 gm DAILY PO Last administered on 10/28/18 10:19; Start 10/26/18 at 09:00 Docusate Sodium (Colace) 100 mg DAILY PO Last administered on 10/29/18 08:43; Start 10/26/18 at 09:00 Docusate Sodium (Colace) 100 mg PRN DAILY PRN PO STOOL SOFTENER; Start 10/25/18 at 18:15 Magnesium Hydroxide (Milk Of Magnesia) 2,400 mg PRN DAILY PRN PO CONSTIPATION 2ND CHOICE; Start 10/25/18 at 20:15 Psyllium Hydrophilic Mucilloid (Metamucil Fiber Packet) 1 pkt DAILY PO Last administered on 9/10/19at 08:43; Start 10/26/18 at 13:45 Mirtazapine (Remeron) 7.5 mg QHS PO Last administered on 10/28/18at 21:10; Start 10/26/18 at 21:00 Pamidronate Disodium 60 mg/ Sodium Chloride 250 ml @ 83.333 mls/ hr 1X ONCE IV Last administered on 10/26/18at 14:45; Start 10/26/18 at 14:00; Stop 10/26/18 at 16:59; Status DC Sodium Chloride 500 ml @ 0 mls/hr 1X ONCE IV Last administered on 10/27/18at 12:05; Start 10/27/18 at 10:15; Stop 10/27/18 at 10:17; Status DC Dextrose/Sodium Chloride 1,000 ml @ 75 mls/hr [id number] IV Last administered on 10/29/18at 08:43; Start 10/27/18 at 17:30 Ondansetron HCl (Zofran) 4 mg PRN Q6HRS PRN IV NAUSEA/VOMITING; Start 10/28/18 at 12:15 Acetaminophen (Tylenol) 500 mg PRN Q6HRS PRN PO MILD PAIN / TEMP; Start 10/28/18 at 12:15 Acetaminophen/ Codeine Phosphate (Tylenol #3) 1 tab PRN Q6HRS PRN PO PAIN; Start 10/28/18 at 12:15 Temazepam (Restoril) 7.5 mg PRN QHS PRN PO INSOMNIA; Start 10/28/18 at 12:15 Magnesium Hydroxide (Milk Of Magnesia) 2,400 mg 1X ONCE PO Last administered on 10/28/18at 14:54; Start 10/28/18 at 14:00; Stop 10/28/18 at 14:03; Status DC Insulin Human Lispro (HumaLOG) 0-9 UNITS TIDWMEALS SQ Last administered on 10/29/18at 08:43; Start 10/28/18 at 17:00 Dextrose (Dextrose 50%-Water Syringe) 12.5 gm PRN Q15MIN PRN IV SEE COMMENTS; Start 10/28/18 at 14:15 Dextrose 250 ml PRN Q15MIN PRN IV SEE COMMENTS; Start 10/28/18 at 14:15 Active Scripts Active Hydrocodone-Apap 5-325 (Hydrocodone Bit/Acetaminophen) 1 Tab Tablet 1 Tab PO PRN Q6HRS PRN Mirtazapine 7.5 Mg Tablet 7.5 Mg PO QHS 30 Days Proair Hfa (Albuterol Sulfate) 8.5 Gm Hfa.aer.ad 2.5 Mg NEB RTQID 30 Days Reported Symbicort 160-4.5 Mcg Inhaler (Budesonide/Formoterol Fumarate) 10.2 Gm Hfa.aer.ad 2 Puff IH PRN BID PRN Marinol (Dronabinol) 5 Mg Capsule 5 Mg PO TID Bumetanide 1 Mg Tablet 0.5 Tab PO PRN Aldactone (Spironolactone) 25 Mg Tablet 25 Mg PO PRN DAILY Losartan Potassium 50 Mg Tablet 50 Mg PO DAILY Labetalol Hcl 200 Mg Tablet 200 Mg PO BID Cardizem Cd (Diltiazem Hcl) 240 Mg Cap.er.24h 240 Mg PO DAILY Atorvastatin Calcium 20 Mg Tablet 20 Mg PO DAILY Vitamin D3 (Cholecalciferol (Vitamin D3)) 2,000 Unit Tablet 2,000 Unit PO DAILY Vitals/I & O Vital Sign - Last 24 Hours 10/28/18 10/28/18 10/28/18 10/28/18 10:19 10:19 10:19 11:00 Temp 98.2 98.2 Pulse 94 94 94 90 Resp 16 B/P (MAP) 111/42 111/42 111/42 115/48 (70) Pulse Ox 92 O2 Delivery Nasal Cannula O2 Flow Rate 2.0 10/28/18 10/28/18 10/28/18 10/28/18 11:26 15:00 16:07 19:00 Temp 98.2 97.5 98.2 97.5 Pulse 90 85 Resp 16 18 B/P (MAP) 120/54 (76) 104/36 (58) Pulse Ox 97 92 94 O2 Delivery Nasal Cannula Nasal Cannula Nasal Cannula Nasal Cannula O2 Flow Rate 2.0 2.0 1.0 2.0 10/28/18 10/28/18 10/28/18 10/28/18 20:00 20:17 21:09 23:00 Temp 97.6 97.6 Pulse 85 89 Resp 18 B/P (MAP) 104/36 130/43 (72) Pulse Ox 94 O2 Delivery Nasal Cannula Nasal Cannula Nasal Cannula O2 Flow Rate 2.0 1.0 2.0 10/29/18 10/29/18 10/29/18 10/29/18 03:00 07:00 07:20 08:43 Temp 97.4 97.6 97.4 97.6 Pulse 95 102 100 Resp 18 20 B/P (MAP) 116/41 (66) 120/44 (69) 120/44 Pulse Ox 96 97 99 O2 Delivery Nasal Cannula Nasal Cannula Nasal Cannula O2 Flow Rate 2.0 1.0 1.0 10/29/18 10/29/18 08:43 08:43 Pulse 100 102 B/P (MAP) 120/44 120/44 Intake and Output 10/28/18 10/28/18 10/29/18 14:59 22:59 06:59 Intake Total 1350 ml 1120 ml 120 ml Balance 1350 ml 1120 ml 120 ml FRANKIE MUNROE MD Oct 29, 2018 09:26
[2018-10-29 09:27] LABS: POTASSIUM 4.8 mmol/L (3.5-5.1)
[2018-10-29 11:00] VITALS: BP 108/40
--- NOTE | 2018-10-29 11:02 | NUR ---
MAILE following Pt. MAILE arranged transport to [facility] bed via [facility] at 1445. Discussed with daughter in law, and she is concerned about pt's breathing- RN aware. Left a message to Aria at [facility]. Addendum: 10/29/18 at 1643 by MAYUR GR Awaiting on chest x-ray. Transport cancelled.
--- NOTE | 2018-10-29 12:42 | PDOC3 ---
Discharge Summary Visit Information Date of Admission: Oct 25, 2018 Date of Discharge: Oct 29, 2018 Admitting Diagnosis Comment: hypercalcemia, with constipation hypernatremia hyperchloremia hypoGlycemia on insulin metastatic breast cancer st 4 - pt/family not ready for hospice - weakness and debility, snu recommended Anemia due to malignancy and chemotherapy - Leukopenia - due to chemotherapy. Pleural effusion, malignant - Chest x-ray on 10/24/2018 revealed stable pleural effusions Constipation Stage I decubitus ulcer Final Diagnosis Problems Medical Problems: (1) Hypercalcemia Status: Acute (2) Hypernatremia Status: Acute (3) Metastatic breast cancer Status: Chronic Brief Hospital Course Allergies Allergies Coded Allergies Type Severity Reaction Last Updated Verified No Known Drug Allergies 09/20/18 No Vital Signs Vital Signs Date Time Temp Pulse Resp B/P (MAP) Pulse Ox O2 Delivery O2 Flow Rate FiO2 10/29/18 11:38 98 Nasal Cannula 1.0 10/29/18 11:00 97.4 88 18 108/40 (62) 97.4 Lab Results Laboratory Tests Test 10/27/18 16:57 10/27/18 17:12 10/27/18 20:34 10/28/18 06:15 Glucose (Fingerstick) 45 mg/dL (70-99) 162 mg/dL (70-99) 144 mg/dL (70-99) Sodium Level 145 mmol/L (136-145) Potassium Level 4.5 mmol/L (3.5-5.1) Chloride Level 113 mmol/L (98-107) Carbon Dioxide Level 28 mmol/L (21-32) Anion Gap 4 (6-14) Blood Urea Nitrogen 26 mg/dL (7-20) Creatinine 0.5 mg/dL (0.6-1.0) Estimated GFR (Cockcroft-Gault) 145.1 Glucose Level 81 mg/dL (70-99) Calcium Level 11.0 mg/dL (8.5-10.1) Phosphorus Level 3.5 mg/dL (2.6-4.7) Albumin 2.1 g/dL (3.4-5.0) Test 10/28/18 06:45 10/28/18 07:34 10/28/18 07:53 10/28/18 10:50 White Blood Count 2.4 x10^3/uL (4.0-11.0) Red Blood Count 2.88 x10^6/uL (3.50-5.40) Hemoglobin 8.0 g/dL (12.0-15.5) Hematocrit 25.1 % (36.0-47.0) Mean Corpuscular Volume 87 fL (79-100) Mean Corpuscular Hemoglobin 28 pg (25-35) Mean Corpuscular Hemoglobin Concent 32 g/dL (31-37) Red Cell Distribution Width 22.6 % (11.5-14.5) Platelet Count 221 x10^3/uL (140-400) Neutrophils (%) (Auto) 73 % (31-73) Lymphocytes (%) (Auto) 12 % (24-48) Monocytes (%) (Auto) 13 % (0-9) Eosinophils (%) (Auto) 1 % (0-3) Basophils (%) (Auto) 0 % (0-3) Neutrophils # (Auto) 1.7 x10^3/uL (1.8-7.7) Lymphocytes # (Auto) 0.3 x10^3/uL (1.0-4.8) Monocytes # (Auto) 0.3 x10^3/uL (0.0-1.1) Eosinophils # (Auto) 0.0 x10^3/uL (0.0-0.7) Basophils # (Auto) 0.0 x10^3/uL (0.0-0.2) Glucose (Fingerstick) 66 mg/dL (70-99) 144 mg/dL (70-99) 153 mg/dL (70-99) Test 10/28/18 12:43 10/28/18 16:18 10/28/18 20:41 10/29/18 07:10 Glucose (Fingerstick) 135 mg/dL (70-99) 230 mg/dL (70-99) 270 mg/dL (70-99) White Blood Count 2.3 x10^3/uL (4.0-11.0) Red Blood Count 3.14 x10^6/uL (3.50-5.40) Hemoglobin 8.5 g/dL (12.0-15.5) Hematocrit 26.9 % (36.0-47.0) Mean Corpuscular Volume 86 fL (79-100) Mean Corpuscular Hemoglobin 27 pg (25-35) Mean Corpuscular Hemoglobin Concent 32 g/dL (31-37) Red Cell Distribution Width 22.1 % (11.5-14.5) Platelet Count 207 x10^3/uL (140-400) Neutrophils (%) (Auto) 75 % (31-73) Lymphocytes (%) (Auto) 11 % (24-48) Monocytes (%) (Auto) 12 % (0-9) Eosinophils (%) (Auto) 1 % (0-3) Basophils (%) (Auto) 0 % (0-3) Neutrophils # (Auto) 1.7 x10^3/uL (1.8-7.7) Lymphocytes # (Auto) 0.3 x10^3/uL (1.0-4.8) Monocytes # (Auto) 0.3 x10^3/uL (0.0-1.1) Eosinophils # (Auto) 0.0 x10^3/uL (0.0-0.7) Basophils # (Auto) 0.0 x10^3/uL (0.0-0.2) Sodium Level 142 mmol/L (136-145) Potassium Level 4.8 mmol/L (3.5-5.1) Chloride Level 108 mmol/L (98-107) Carbon Dioxide Level 28 mmol/L (21-32) Anion Gap 6 (6-14) Blood Urea Nitrogen 29 mg/dL (7-20) Creatinine 0.7 mg/dL (0.6-1.0) Estimated GFR (Cockcroft-Gault) 98.4 Glucose Level 300 mg/dL (70-99) Calcium Level 10.5 mg/dL (8.5-10.1) Phosphorus Level 3.0 mg/dL (2.6-4.7) Albumin 2.2 g/dL (3.4-5.0) Test 10/29/18 07:44 10/29/18 11:33 Glucose (Fingerstick) 309 mg/dL (70-99) 351 mg/dL (70-99) Laboratory Tests Test 10/28/18 12:43 10/28/18 16:18 10/28/18 20:41 10/29/18 07:10 Glucose (Fingerstick) 135 mg/dL (70-99) 230 mg/dL (70-99) 270 mg/dL (70-99) White Blood Count 2.3 x10^3/uL (4.0-11.0) Red Blood Count 3.14 x10^6/uL (3.50-5.40) Hemoglobin 8.5 g/dL (12.0-15.5) Hematocrit 26.9 % (36.0-47.0) Mean Corpuscular Volume 86 fL (79-100) Mean Corpuscular Hemoglobin 27 pg (25-35) Mean Corpuscular Hemoglobin Concent 32 g/dL (31-37) Red Cell Distribution Width 22.1 % (11.5-14.5) Platelet Count 207 x10^3/uL (140-400) Neutrophils (%) (Auto) 75 % (31-73) Lymphocytes (%) (Auto) 11 % (24-48) Monocytes (%) (Auto) 12 % (0-9) Eosinophils (%) (Auto) 1 % (0-3) Basophils (%) (Auto) 0 % (0-3) Neutrophils # (Auto) 1.7 x10^3/uL (1.8-7.7) Lymphocytes # (Auto) 0.3 x10^3/uL (1.0-4.8) Monocytes # (Auto) 0.3 x10^3/uL (0.0-1.1) Eosinophils # (Auto) 0.0 x10^3/uL (0.0-0.7) Basophils # (Auto) 0.0 x10^3/uL (0.0-0.2) Sodium Level 142 mmol/L (136-145) Potassium Level 4.8 mmol/L (3.5-5.1) Chloride Level 108 mmol/L (98-107) Carbon Dioxide Level 28 mmol/L (21-32) Anion Gap 6 (6-14) Blood Urea Nitrogen 29 mg/dL (7-20) Creatinine 0.7 mg/dL (0.6-1.0) Estimated GFR (Cockcroft-Gault) 98.4 Glucose Level 300 mg/dL (70-99) Calcium Level 10.5 mg/dL (8.5-10.1) Phosphorus Level 3.0 mg/dL (2.6-4.7) Albumin 2.2 g/dL (3.4-5.0) Test 10/29/18 07:44 10/29/18 11:33 Glucose (Fingerstick) 309 mg/dL (70-99) 351 mg/dL (70-99) Brief Hospital Course Ms. Hobson is a 78 old [place] female who was admitted on October 25, 2018, for hypercalcemia. She has stage IV breast carcinoma but was not ready for hospice as discussed with heme onc. She needs SNU and is agreeable to [facility] rehabilitation. Some concerns about coughing hence there was a chest x-ray prior to discharge. 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, I have seen and examined patient on med rec done. Full code, not ready for hospice. Hypercalcemia corrected status post IV fluid and bisphosphonate Consults performed renal Procedures performed bisphosphonate and IV hydration THE pcp who requested all these special tests is supposed to ff up with the results pt seen and examined dw family and rn time 34 Discharge Information Condition at Discharge: Improved, Stable Disposition/Orders: Other (snu) Scheduled Albuterol Sulfate (Proair Hfa) 8.5 Gm Hfa.aer.ad, 2.5 MG NEB RTQID for WHEEZING for 30 Days, #1 Prescribed by: KOSTAS RODRIGUEZ MD on 06/21/18 0930 Last Action: Continued on 10/25/181713 by DIANE NELSON Atorvastatin Calcium (Atorvastatin Calcium) 20 Mg Tablet, 20 MG PO DAILY for HLD, (Reported) Entered as Reported by: CRISTIANA LEWIS on 06/11/18 1651 Last Action: Continued on 10/25/181713 by DIANE NELSON Bumetanide (Bumetanide) 1 Mg Tablet, 0.5 TAB PO PRN for edema, #90 Ref 1 (Reported) Entered as Reported by: DIANE NELSON on 10/25/181700 Last Taken: UNKNOWN on Unknown Date & Time Last Action: Continued on 10/25/181713 by DIANE NELSON Cholecalciferol (Vitamin D3) (Vitamin D3) 2,000 Unit Tablet, 2,000 UNIT PO DAILY, (Reported) Entered as Reported by: DONNA CORTEZ on 03/01/17 1308 Last Action: Converted on 10/25/181713 by DIANE NELSON Diltiazem Hcl (Cardizem Cd) 240 Mg Cap.er.24h, 240 MG PO DAILY for FOR HYPERTENSION, (Reported) Entered as Reported by: TELMA CRYSTAL on 10/15/181536 Last Action: Continued on 10/25/181713 by DIANE NELSON Dronabinol (Marinol) 5 Mg Capsule, 5 MG PO TID for appetite , (Reported) Entered as Reported by: DIANE NELSON on 10/25/181700 Last Taken: UNKNOWN on Unknown Date & Time Last Action: Converted on 10/25/181713 by DIANE NELSON Labetalol Hcl (Labetalol Hcl) 200 Mg Tablet, 200 MG PO BID for HTN, (Reported) Entered as Reported by: TELMA CRYSTAL on 10/15/181536 Last Action: Continued on 10/25/181713 by DIANE NELSON Losartan Potassium (Losartan Potassium) 50 Mg Tablet, 50 MG PO DAILY for HYPERTENSION, (Reported) Entered as Reported by: TELMA CRYSTAL on 10/15/181536 Last Action: Continued on 10/25/181713 by DIANE NELSON Mirtazapine (Mirtazapine) 7.5 Mg Tablet, 7.5 MG PO QHS for MOOD for 30 Days, #30 Prescribed by: KOSTAS RODRIGUEZ MD on 06/21/18 0930 Spironolactone (Aldactone) 25 Mg Tablet, 25 MG PO PRN DAILY for edema , (Reported) Entered as Reported by: TELMA CRYSTAL on 10/15/181536 Last Action: Continued on 10/25/181713 by DIANE NELSON Scheduled PRN Budesonide/Formoterol Fumarate (Symbicort 160-4.5 Mcg Inhaler) 10.2 Gm Hfa.aer.ad, 2 PUFF IH PRN BID PRN for COUGH, #10.6 Ref 3 (Reported) Entered as Reported by: DIANE NELSON on 10/25/181700 Last Taken: UNKNOWN on Unknown Date & Time Last Action: Converted on 10/25/181713 by DIANE NELSON Hydrocodone Bit/Acetaminophen (Hydrocodone-Apap 5-325 ) 1 Tab Tablet, 1 TAB PO PRN Q6HRS PRN for PAIN, #20 Ref 0 Prescribed by: NITIN WEAVER on 10/28/18 1415 Discontinued Medications Calcium Carbonate (Calcium) 500 Mg Tablet, 500 MG PO DAILY, (Reported) Entered as Reported by: DONNA CORTEZ on 03/01/17 1307 Last Action: Discontinued on 10/25/181702 by DIANE NELSON Denosumab (Xgeva) 120 Mg/1.7 Ml Vial, 120 MG SQ monthly for Bone mets, (Reported) Entered as Reported by: TELMA CRYSTAL on 03/27/17 1258 Last Action: Discontinued on 10/25/181702 by DIANE NELSON Furosemide (Furosemide) 40 Mg Tablet, (Reported) Entered as Reported by: CRISTIANA LEWIS on 06/11/18 1651 Last Action: Discontinued on 10/25/181702 by DIANE NELSON Insulin Glargine,Hum.rec.anlog (Lantus Solostar) 100 Unit/1 Ml Insuln.pen, 22 UNITS SQ QHS for DIABETES for 30 Days, #1 Prescribed by: KOSTAS RODRIGUEZ MD on 06/21/18 0939 Insulin Glargine,Hum.rec.anlog (Lantus Solostar) 100 Unit/1 Ml Insuln.pen, 25 UNIT SQ QHS for DM II , #15 Ref 5 (Reported) Entered as Reported by: DIANE NELSON on 10/25/181703 Last Taken: UNKNOWN on Unknown Date & Time Last Action: Converted on 10/25/181713 by DIANE NELSON Insulin Lispro (Humalog) 100 Unit/1 Ml Insuln.pen, 13 UNITS SQ TIDWMEALS for DIABETES for 30 Days, #1 Prescribed by: KOSTAS RODRIGUEZ MD on 06/21/18 0948 Insulin Lispro (Humalog) 100 Unit/1 Ml Cartridge, 15 UNIT SQ TIDAFTMEAL for DM II , (Reported) Entered as Reported by: DIANE NELSON on 10/25/181703 Last Taken: UNKNOWN on Unknown Date & Time Last Action: Converted on 10/25/181713 by DIANE NELSON Magnesium Oxide (Mag-Oxide) 400 Mg Tablet, (Reported) Entered as Reported by: CRISTIANA LEWIS on 06/11/181650 Last Action: Discontinued on 10/25/181702 by DIANE NELSON Montelukast Sodium (Montelukast Sodium Tablet ) 10 Mg Tablet, 10 MG PO HS for FOR ASTHMA, (Reported) Entered as Reported by: TELMA CRYSTAL on 02/06/17 1348 Last Action: Discontinued on 10/25/181702 by DIANE NELSON Oxycodone/Apap 5-325 (Percocet 5-325 Mg Tablet ) 1 Each Tablet, 1 TAB PO PRN Q6HRS PRN for PAIN, (Reported) Entered as Reported by: TELMA CRYSTAL on 10/15/181536 Last Action: Discontinued on 10/25/181702 by DIANE NELSON Potassium Chloride (Klor-Con 10) 10 Meq Tablet.er, (Reported) Entered as Reported by: CRISTIANA LEWIS on 06/11/181650 Last Action: Discontinued on 10/25/181702 by DIANE NELSON [Abraxane IV] , IV per protocol for Metastatic breast cancer, (Reported) Entered as Reported by: TELMA CRYSTAL on 10/15/181536 Last Action: Discontinued on 10/25/181702 by NITIN BECERRA MD Oct 29, 2018 12:42
[2018-10-29 13:24] LABS: ALBUMIN 2.2 g/dL (3.4-5.0)
[2018-10-29 15:00] VITALS: BP 98/37
--- NOTE | 2018-10-29 16:22 | RAD ---
PORTABLE CHEST 1V History: Follow-up pleural effusions. Cough. Comparison: October 24, 2018 Findings: Moderate layering bilateral pleural effusions with adjacent opacities, similar compared to prior allowing for differences in technique. Prior granulomatous disease. Unchanged right chest wall port. Unchanged heart size. Left rib fracture, unchanged. Impression: 1. Moderate bilateral layering pleural effusions with adjacent opacities, right greater than left, similar compared to prior allowing for differences in technique. Electronically signed by: Tho Monson DO (10/29/2018 4:19 PM) [id number]
[2018-10-29] MEDS ORDERED: IV NORMAL SALINE 500ML BAG 500 ML IV ONE (17:30)
[2018-10-29 19:00] VITALS: BP 98/34
[2018-10-29] MEDS: INSULIN GLARGINE SYRINGE. SQ SCH (21:18)
[2018-10-29] MEDS: ATORVASTATIN CALCIUM 20 MG TABLET PO SCH (21:21)
[2018-10-29] MEDS: MIRTAZAPINE 7.5 MG TABLET. PO SCH (21:21)
[2018-10-29 23:00] VITALS: BP 118/40
[2018-10-30 03:00] VITALS: BP 133/46
[2018-10-30] MEDS: HYDROcodone/APAP 5/325MG 1 TAB TABLET PO PRN (06:12)
[2018-10-30 07:00] VITALS: BP 127/50
[2018-10-30] MEDS: DRONABINOL 2.5 MG CAPSULE. PO SCH ×3 (07:30→17:06)
[2018-10-30] MEDS: BUDESONIDE 0.5 MG/2 ML NEBU. NEB SCH ×2 (08:01→20:14)
[2018-10-30] MEDS: ALBUTEROL SULFATE 2.5 MG/3 ML NEBU. NEB SCH ×4 (08:01→20:14)
[2018-10-30] MEDS: LABETALOL HCL 200 MG TABLET PO SCH ×2 (09:00→20:32)
[2018-10-30] MEDS: PSYLLIUM HUSK (SUGAR FREE) 1 PKT PACKET PO SCH (09:00)
[2018-10-30] MEDS: POLYETHYLENE GLYCOL 3350 17 GM PACKET. PO SCH (09:00)
[2018-10-30] MEDS: INSULIN LISPRO 300 UNITS/3 ML VIAL. SQ SCH ×3 (09:04→17:10)
[2018-10-30] MEDS: DOCUSATE SODIUM 100 MG CAPSULE. PO SCH (09:06)
[2018-10-30] MEDS: LOSARTAN POTASSIUM 50 MG TABLET. PO SCH (09:07)
--- NOTE | 2018-10-30 10:28 | PDOC ---
PROGRESS NOTES Chief Complaint Chief Complaint IMPRESSION hypercalcemia, with constipation hypernatremia hyperchloremia hypoGlycemia on insulin metastatic breast cancer st 4 - pt/family CONSIDER hospice - weakness and debility, snu recommended Anemia due to malignancy and chemotherapy - Leukopenia - due to chemotherapy. Pleural effusion, malignant - Chest x-ray on 10/24/2018 revealed stable pleural effusions Moderate bilateral layering pleural effusions with adjacent opacities, right greater than left, similar compared to prior allowing for differences in technique.10/29 Constipation Stage I decubitus ulcer ONCOLOGY HAS recommended to stop further chemotherapy and focus on comfort care and supportive care with the help of hospice. family wants to consider thoracentesis,for palliation of symptoms, will consult DR VEGA 37 MIN PT EXAM, CHART REVIEW, > 50%OF TIME SPENT WITH EXAM, CHART REVIEW, PT CARE COORDINATION History of Present Illness History of Present Illness Calcium down to 11 from 11.9 On 75 mL dectrose IVF and status post Aredia Discussed with heme onc-apparently patient or family not ready for hospice PT recommend SNU if she will not go for hospice SOme hYPOGLYCEMIA today,despite dextrose IVF Plan: consult social work and palliative-discharge disposition is either snu or hospice cleared to go home by heme onc with that level of calcium Dc any insulin bowel regimen dw RN Vitals Vitals Vital Signs Date Time Temp Pulse Resp B/P (MAP) Pulse Ox O2 Delivery O2 Flow Rate FiO2 10/30/18 09:09 94 127/50 10/30/18 08:04 96 Nasal Cannula 2.0 10/30/18 07:55 18 10/30/18 07:00 97.9 97.9 Physical Exam General: Alert, Oriented X3, Cooperative, No acute distress Heart: Regular rate, Normal S1, Normal S2 Lungs: Crackles, Other Abdomen: Normal bowel sounds, Soft Labs LABS PORTABLE CHEST 1V History: Follow-up pleural effusions. Cough. Comparison: October 24, 2018 Findings: Moderate layering bilateral pleural effusions with adjacent opacities, similar compared to prior allowing for differences in technique. Prior granulomatous disease. Unchanged right chest wall port. Unchanged heart size. Left rib fracture, unchanged. Impression: 1. Moderate bilateral layering pleural effusions with adjacent opacities, right greater than left, similar compared to prior allowing for differences in technique. Electronically signed by: Silva Smith DO (10/29/2018 4:19 PM) [facility] [place] DICTATED and SIGNED BY: SILVA SMITH DO DATE: 10/29/18 [id number] Laboratory Tests Test 10/29/18 11:33 10/29/18 16:47 10/29/18 20:53 10/30/18 07:51 Glucose (Fingerstick) 351 mg/dL (70-99) 308 mg/dL (70-99) 287 mg/dL (70-99) 223 mg/dL (70-99) Assessment and Plan Assessmemt and Plan Problems Medical Problems: (1) Hypercalcemia Status: Acute (2) Hypernatremia Status: Acute (3) Metastatic breast cancer Status: Chronic Comment Review of Relevant I have reviewed the following items patrica (where applicable) has been applied. Labs Laboratory Tests Test 10/28/18 10:50 10/28/18 12:43 10/28/18 16:18 10/28/18 20:41 Glucose (Fingerstick) 153 mg/dL (70-99) 135 mg/dL (70-99) 230 mg/dL (70-99) 270 mg/dL (70-99) Test 10/29/18 07:10 10/29/18 07:44 10/29/18 11:33 10/29/18 16:47 White Blood Count 2.3 x10^3/uL (4.0-11.0) Red Blood Count 3.14 x10^6/uL (3.50-5.40) Hemoglobin 8.5 g/dL (12.0-15.5) Hematocrit 26.9 % (36.0-47.0) Mean Corpuscular Volume 86 fL (79-100) Mean Corpuscular Hemoglobin 27 pg (25-35) Mean Corpuscular Hemoglobin Concent 32 g/dL (31-37) Red Cell Distribution Width 22.1 % (11.5-14.5) Platelet Count 207 x10^3/uL (140-400) Neutrophils (%) (Auto) 75 % (31-73) Lymphocytes (%) (Auto) 11 % (24-48) Monocytes (%) (Auto) 12 % (0-9) Eosinophils (%) (Auto) 1 % (0-3) Basophils (%) (Auto) 0 % (0-3) Neutrophils # (Auto) 1.7 x10^3/uL (1.8-7.7) Lymphocytes # (Auto) 0.3 x10^3/uL (1.0-4.8) Monocytes # (Auto) 0.3 x10^3/uL (0.0-1.1) Eosinophils # (Auto) 0.0 x10^3/uL (0.0-0.7) Basophils # (Auto) 0.0 x10^3/uL (0.0-0.2) Sodium Level 142 mmol/L (136-145) Potassium Level 4.8 mmol/L (3.5-5.1) Chloride Level 108 mmol/L (98-107) Carbon Dioxide Level 28 mmol/L (21-32) Anion Gap 6 (6-14) Blood Urea Nitrogen 29 mg/dL (7-20) Creatinine 0.7 mg/dL (0.6-1.0) Estimated GFR (Cockcroft-Gault) 98.4 Glucose Level 300 mg/dL (70-99) C-Peptide 2.0 ng/mL (1.1-4.4) Calcium Level 10.5 mg/dL (8.5-10.1) Phosphorus Level 3.0 mg/dL (2.6-4.7) Albumin 2.2 g/dL (3.4-5.0) Triglycerides Level 86 mg/dL (0-150) Cholesterol Level 129 mg/dL (0-200) LDL Cholesterol, Calculated 80 mg/dL (0-100) VLDL Cholesterol, Calculated 17 mg/dL (0-40) Non-HDL Cholesterol Calculated 97 mg/dL (0-129) HDL Cholesterol 32 mg/dL (40-60) Cholesterol/HDL Ratio 4.0 Glucose (Fingerstick) 309 mg/dL (70-99) 351 mg/dL (70-99) 308 mg/dL (70-99) Test 10/29/18 20:53 10/30/18 07:51 Glucose (Fingerstick) 287 mg/dL (70-99) 223 mg/dL (70-99) Laboratory Tests Test 10/29/18 11:33 10/29/18 16:47 10/29/18 20:53 10/30/18 07:51 Glucose (Fingerstick) 351 mg/dL (70-99) 308 mg/dL (70-99) 287 mg/dL (70-99) 223 mg/dL (70-99) Medications Current Medications Lidocaine/ Epinephrine (Let Topical) 3 ml STK-MED ONCE TP ; Start 10/25/18 at 12:24; Stop 10/25/18 at 12:24; Status DC Lidocaine/ Epinephrine (Let Topical) 3 ml 1X ONCE TP Last administered on 10/25/18at 12:38; Start 10/25/18 at 12:30; Stop 10/25/18 at 12:34; Status DC Acetaminophen/ Hydrocodone Bitart (Lortab 5/325) 1 tab 1X ONCE PO Last administered on 10/25/18at 12:49; Start 10/25/18 at 13:15; Stop 10/25/18 at 13:16; Status DC Ondansetron HCl (Zofran) 4 mg PRN Q8HRS PRN IV NAUSEA/VOMITING; Start 10/25/18 at 13:45; Stop 10/26/18 at 13:44; Status DC Morphine Sulfate (Morphine Sulfate) 4 mg PRN Q2HR PRN IV PAIN; Start 10/25/18 at 13:45; Stop 10/26/18 at 13:44; Status DC Acetaminophen (Tylenol) 650 mg PRN Q4HRS PRN PO FEVER Last administered on 10/26/18at 11:34; Start 10/25/18 at 13:45; Stop 10/26/18 at 13:44; Status DC Sodium Chloride 1,000 ml @ 125 mls/hr 1X ONCE IV Last administered on 10/25/18at 13:52; Start 10/25/18 at 13:45; Stop 10/25/18 at 21:44; Status DC Lidocaine/ Epinephrine (Let Topical) 3 ml 1X ONCE TP Last administered on 10/25/18at 15:58; Start 10/25/18 at 16:00; Stop 10/25/18 at 16:01; Status DC Albuterol Sulfate (Ventolin Neb Soln) 2.5 mg RTQID NEB Last administered on 10/30/18at 08:02; Start 10/25/18 at 20:00 Atorvastatin Calcium (Lipitor) 20 mg QHS PO Last administered on 10/29/18at 21:21; Start 10/25/18 at 21:00 Bumetanide (Bumex) 0.5 mg PRN DAILY PRN PO EDEMA; Start 10/25/18 at 17:15 Diltiazem HCl (Cardizem 24hr Cd) 240 mg DAILY PO Last administered on 10/30/18 09:09; Start 10/25/18 at 17:30 Acetaminophen/ Hydrocodone Bitart (Lortab 5/325) 1 tab PRN Q6HRS PRN PO PAIN Last administered on 10/30/18 06:12; Start 10/25/18 at 17:15 Labetalol HCl (Trandate) 200 mg BID PO Last administered on 10/29/18 08:43; Start 10/25/18 at 21:00 Losartan Potassium (Cozaar) 50 mg DAILY PO Last administered on 10/30/18 09:09; Start 10/25/18 at 17:30 Spironolactone (Aldactone) 25 mg PRN DAILY PRN PO EDEMA; Start 10/25/18 at 17:15 Budesonide (Pulmicort) 0.5 mg RTBID NEB Last administered on 10/30/18 08:02; Start 10/25/18 at 20:00 Vitamin D (Vitamin D3) 2,000 unit DAILY PO Last administered on 10/27/18 09:42; Start 10/26/18 at 09:00; Stop 10/28/18 at 08:57; Status DC Dronabinol (Marinol) 5 mg TIDAC PO Last administered on 10/29/18 17:37; Start 10/25/18 at 17:30 Insulin Glargine (Lantus Syringe) 25 unit QHS SQ Last administered on 10/27/18 20:33; Start 10/25/18 at 21:00; Stop 10/28/18 at 14:03; Status DC Insulin Human Lispro (HumaLOG) 15 units TIDWMEALS SQ Last administered on 10/27/18 09:42; Start 10/25/18 at 18:00; Stop 10/28/18 at 14:03; Status DC Insulin Human Lispro (HumaLOG) 0-7 UNITS TIDWMEALS SQ Last administered on 10/25/18 18:23; Start 10/25/18 at 17:30; Stop 10/28/18 at 14:03; Status DC Dextrose (Dextrose 50%-Water Syringe) 12.5 gm PRN Q15MIN PRN IV SEE COMMENTS Last administered on 10/28/18at 07:45; Start 10/25/18 at 17:15; Stop 10/28/18 at 15:16; Status DC Dextrose 250 ml PRN Q15MIN PRN IV SEE COMMENTS; Start 10/25/18 at 17:15; Status Cancel Polyethylene Glycol (miraLAX PACKET) 17 gm PRN DAILY PRN PO CONSTIPATION 1ST CHOICE; Start 10/25/18 at 17:30 Sodium Chloride 1,000 ml @ 100 mls/hr Q10H IV Last administered on 10/25/18at 23:25; Start 10/25/18 at 17:30; Stop 10/26/18 at 12:31; Status DC Polyethylene Glycol (miraLAX PACKET) 17 gm DAILY PO Last administered on 10/28/18at 10:19; Start 10/26/18 at 09:00 Docusate Sodium (Colace) 100 mg DAILY PO Last administered on 10/30/18at 09:09; Start 10/26/18 at 09:00 Docusate Sodium (Colace) 100 mg PRN DAILY PRN PO STOOL SOFTENER; Start 10/25/18 at 18:15 Magnesium Hydroxide (Milk Of Magnesia) 2,400 mg PRN DAILY PRN PO CONSTIPATION 2ND CHOICE; Start 10/25/18 at 20:15 Psyllium Hydrophilic Mucilloid (Metamucil Fiber Packet) 1 pkt DAILY PO Last administered on 10/29/18at 08:43; Start 10/26/18 at 13:45 Mirtazapine (Remeron) 7.5 mg QHS PO Last administered on 10/29/18at 21:21; Start 10/26/18 at 21:00 Pamidronate Disodium 60 mg/ Sodium Chloride 250 ml @ 83.333 mls/ hr 1X ONCE IV Last administered on 10/26/18at 14:45; Start 10/26/18 at 14:00; Stop 10/26/18 at 16:59; Status DC Sodium Chloride 500 ml @ 0 mls/hr 1X ONCE IV Last administered on 10/27/18at 12:05; Start 10/27/18 at 10:15; Stop 10/27/18 at 10:17; Status DC Dextrose/Sodium Chloride 1,000 ml @ 75 mls/hr [id number] IV Last administered on 10/29/18at 08:43; Start 10/27/18 at 17:30; Stop 10/29/18 at 16:12; Status DC Ondansetron HCl (Zofran) 4 mg PRN Q6HRS PRN IV NAUSEA/VOMITING; Start 10/28/18 at 12:15 Acetaminophen (Tylenol) 500 mg PRN Q6HRS PRN PO MILD PAIN / TEMP; Start 10/28/18 at 12:15 Acetaminophen/ Codeine Phosphate (Tylenol #3) 1 tab PRN Q6HRS PRN PO PAIN; Start 10/28/18 at 12:15 Temazepam (Restoril) 7.5 mg PRN QHS PRN PO INSOMNIA; Start 10/28/18 at 12:15 Magnesium Hydroxide (Milk Of Magnesia) 2,400 mg 1X ONCE PO Last administered on 10/28/18at 14:54; Start 10/28/18 at 14:00; Stop 10/28/18 at 14:03; Status DC Insulin Human Lispro (HumaLOG) 0-9 UNITS TIDWMEALS SQ Last administered on 10/30/18at 09:09; Start 10/28/18 at 17:00 Dextrose (Dextrose 50%-Water Syringe) 12.5 gm PRN Q15MIN PRN IV SEE COMMENTS; Start 10/28/18 at 14:15 Dextrose 250 ml PRN Q15MIN PRN IV SEE COMMENTS; Start 10/28/18 at 14:15 Insulin Glargine (Lantus Syringe) 10 unit QHS SQ Last administered on 10/29/18at 21:21; Start 10/29/18 at 21:00 Sodium Chloride 500 ml @ 500 mls/hr 1X ONCE IV ; Start 10/29/18 at 17:30; Sto p 10/29/18 at 18:19; Status DC Active Scripts Active Hydrocodone-Apap 5-325 (Hydrocodone Bit/Acetaminophen) 1 Tab Tablet 1 Tab PO PRN Q6HRS PRN Mirtazapine 7.5 Mg Tablet 7.5 Mg PO QHS 30 Days Proair Hfa (Albuterol Sulfate) 8.5 Gm Hfa.aer.ad 2.5 Mg NEB RTQID 30 Days Reported Symbicort 160-4.5 Mcg Inhaler (Budesonide/Formoterol Fumarate) 10.2 Gm Hfa.aer.ad 2 Puff IH PRN BID PRN Marinol (Dronabinol) 5 Mg Capsule 5 Mg PO TID Bumetanide 1 Mg Tablet 0.5 Tab PO PRN Aldactone (Spironolactone) 25 Mg Tablet 25 Mg PO PRN DAILY Losartan Potassium 50 Mg Tablet 50 Mg PO DAILY Labetalol Hcl 200 Mg Tablet 200 Mg PO BID Cardizem Cd (Diltiazem Hcl) 240 Mg Cap.er.24h 240 Mg PO DAILY Atorvastatin Calcium 20 Mg Tablet 20 Mg PO DAILY Vitamin D3 (Cholecalciferol (Vitamin D3)) 2,000 Unit Tablet 2,000 Unit PO DAILY Vitals/I & O Vital Sign - Last 24 Hours 10/29/18 10/29/18 10/29/18 10/29/18 11:00 11:38 15:00 16:01 Temp 97.4 95.8 97.4 95.8 Pulse 88 83 Resp 18 20 B/P (MAP) 108/40 (62) 98/37 (57) Pulse Ox 97 98 96 99 O2 Delivery Nasal Cannula Nasal Cannula Nasal Cannula Nasal Cannula O2 Flow Rate 1.0 1.0 1.0 1.0 10/29/18 10/29/18 10/29/18 10/29/18 19:00 19:26 20:00 21:21 Temp 97.9 97.9 Pulse 84 83 Resp 18 B/P (MAP) 98/34 (55) 98/37 Pulse Ox 95 99 O2 Delivery Nasal Cannula Nasal Cannula Nasal Cannula O2 Flow Rate 1.0 1.0 2.0 10/29/18 10/30/18 10/30/18 10/30/18 23:00 03:00 07:00 07:55 Temp 97.3 98.1 97.9 97.3 98.1 97.9 Pulse 89 99 94 Resp 18 18 18 18 B/P (MAP) 118/40 (66) 133/46 (75) 127/50 (75) Pulse Ox 97 95 97 95 O2 Delivery Nasal Cannula Nasal Cannula Nasal Cannula Nasal Cannula O2 Flow Rate 1.0 1.0 1.0 1.0 10/30/18 10/30/18 10/30/18 10/30/18 08:00 08:04 09:09 09:09 Pulse 94 94 B/P (MAP) 127/50 127/50 Pulse Ox 96 O2 Delivery Nasal Cannula Nasal Cannula O2 Flow Rate 2.0 2.0 10/30/18 09:09 Pulse 94 B/P (MAP) 127/50 Intake and Output 10/29/18 10/29/18 10/30/18 15:00 23:00 07:00 Intake Total 250 ml 50 ml Balance 250 ml 50 ml KOSTAS RODRIGUEZ MD Oct 30, 2018 10:28
[2018-10-30 11:00] VITALS: BP 148/56
--- NOTE | 2018-10-30 12:28 | NUR ---
SW following pt. Pulmonary consulted. Left a message for Aria at [facility].
[2018-10-30 12:37] LABS: BILIRUBIN,URINE NEGATIVE (NEG); CLARITY,URINE CLEAR; COLOR,URINE YELLOW; NITRITE,URINE NEGATIVE (NEG); PH,URINE 5.5; PROTEIN,URINE 30 mg/dL (NEG-TRACE)
[2018-10-30 12:46] LABS: AMORPHOUS SEDIMENT,UR PRESENT /HPF; HYALINE CASTS, URINE MODERATE /HPF; SQUAMOUS EPITHELIAL CELL,UR MOD /LPF
[2018-10-30 12:47] LABS: BACTERIA,URINE FEW /HPF (0-FEW); RBC,URINE OCC /HPF (0-2)
--- NOTE | 2018-10-30 14:29 | CONS ---
DATE OF CONSULTATION: PULMOANRY CONSULTATION ATTENDING PHYSICIAN: Dr. Quinn. REASON FOR CONSULTATION: Recurrent pleural effusions. HISTORY OF PRESENT ILLNESS: The patient is a 78-year-old female, who has history of ductal carcinoma in situ of the left breast in 2001. She underwent left breast biopsy and tumor was ER and CA positive. She underwent radiation treatment. The patient has had pleural effusions initially tapped from the left side and was consistent with metastatic pleural effusion. In the interim, she had thoracentesis done collectively on both sides 7 times. I am not so sure whether cytology was sent on the right side previously, but left side was definitely confirmed malignancy. The patient has been here for dyspnea and was found to have pleural effusion. I reviewed the patient's chest x-ray. She has a moderate-sized right-sided pleural effusion and [id number] pleural effusion on the left side. There is evidence of cephalization of vessels with congestive heart failure. I have been asked for further evaluation and need for further treatment. The patient states that she gets short of breath with activity. She is currently on 2 liters, but the respiratory therapist stated that her saturation level drops down in the 80s with activity. No c/o nausea, vomiting, headache dysuria, focal weakness, rash etc PAST MEDICAL HISTORY: History of infiltrated carcinoma of the breast, status post treatment; she had bilateral pleural effusions, the left side initially was drained in May and the cytology was positive for malignancy, paracentesis was also positive for malignancy, she has been on Abraxane, the patient had thoracentesis 7 times collectively on both sides; possible chronic obstructive pulmonary disease; history of back pain, diabetes, hypertension, and osteoporosis. FAMILY HISTORY: Positive for prostate cancer. SOCIAL HISTORY: Quit tobacco 25 years ago, smoked for about 25-30 years. REVIEW OF SYSTEMS: Twelve-point system obtained; pertinent positives discussed in my history of present illness, otherwise noncontributory. All systems that were negative were reviewed as well. MEDICATIONS: Reviewed as listed in the MRAD. ALLERGIES: reviewed PHYSICAL EXAMINATION: VITAL SIGNS: Reviewed. Pulse oximetry is 96% on 2 liters. NECK: Supple. LUNGS: With diminished breath sounds bilaterally. CARDIOVASCULAR: Regular rate. ABDOMEN: Soft. EXTREMITIES: With pitting edema in her thigh and her legs as well. LABORATORY DATA: Reviewed; white cell count 2.3, hemoglobin 8.5, and platelets are 207. Her BUN is 29, creatinine 0.7. Her albumin is 2.2. IMPRESSION: 1. Stage 4 metastatic breast cancer with bone metastases and malignant left-sided pleural effusion and malignant ascites. She was started on Abraxane per Oncology due to disease progression; however, she developed pleural effusions requiring thoracentesis indicating progressive disease. She is now admitted with hypercalcemia related to her malignancy suggesting progression of cancer as well. Dr. Millan has suggested to stop further chemotherapy and focus on comfort care. 2. Bilateral pleural effusions. She required thoracentesis collectively on 7 occasions. The left side has documented malignancy. Spoke with pathologist, right-sided fluid was never sent sent for cytology in the past.. At this present moment, the right side is larger than the left side and I will proceed with right thoracentesis and if confirmed malignancy then she would definitely need a PleurX catheter on the right side in future. 3. Possible chronic obstructive pulmonary disease. 4. Leukopenia due to chemotherapy. 5. 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 RECOMMENDATIONS: 1. Discussed with the gvysnsbi-yi-maa at length and discussed with Dr. Quinn. At this time, I d/w pathology . No right sided cytology with thoracentesis done in past and as such not sure if its malignant, Will proceed with right thoracentesis. would need a PleurX catheter if malignancy is confirmed and fluid re- accumulates. 2. History of grade 1 diastolic dysfunction and also severe protein-calorie malnutrition, which is also contributing to reaccumulation of pleural effusions. 3. I had a lengthy discussion with the [id number]. At this point, they are not ready for hospice. They need a better understanding of the progression of cancer and I will have Dr. Millan explain to them. ALINA VEGA MD DR: HERI/az JOB#: [id number] / [id number] DANA
[2018-10-30 15:00] VITALS: BP 132/54
[2018-10-30 19:00] VITALS: BP 156/66
[2018-10-30] MEDS: MIRTAZAPINE 7.5 MG TABLET. PO SCH ×2 (20:32→21:00)
[2018-10-30] MEDS: ATORVASTATIN CALCIUM 20 MG TABLET PO SCH (20:32)
[2018-10-30] MEDS: ACETAMINOPHEN 500 MG TABLET PO PRN (20:32)
[2018-10-30] MEDS: INSULIN GLARGINE SYRINGE. SQ SCH (21:58)
[2018-10-30 23:00] VITALS: BP 119/42
[2018-10-31] VITALS (8 sets, daily range): BP systolic 89–131; BP diastolic 35–48
[2018-10-31] MEDS: DRONABINOL 2.5 MG CAPSULE. PO SCH ×3 (07:29→17:54)
[2018-10-31] MEDS: BUDESONIDE 0.5 MG/2 ML NEBU. NEB SCH ×2 (08:09→18:23)
[2018-10-31] MEDS: ALBUTEROL SULFATE 2.5 MG/3 ML NEBU. NEB SCH ×4 (08:09→18:23)
--- NOTE | 2018-10-31 10:02 | RAD ---
Ultrasound-guided right-sided thoracentesis 10/31/2018 7:58 AM Indication: ct guided right thoracentesis Procedure: Informed consent was obtained. A timeout procedure was performed. Sonographic evaluation of the right chest was performed demonstrating moderate pleural effusion. The right posterior chest was prepped and draped in sterile fashion. 1% lidocaine without epinephrine was administered for local anesthesia. Real-time ultrasonographic guidance was used in passing a 5 [employer] catheter into the right pleural space. 1.2 L of serosanguineous pleural fluid was removed. Samples of fluid were sent to the lab for further evaluation per ordering physician request. The catheter was removed and pressure held to achieve hemostasis. A sterile dressing was applied. No immediate complications were identified. The patient tolerated the procedure well. Impression: right sided ultrasound-guided thoracentesis
[2018-10-31] MEDS: LOSARTAN POTASSIUM 50 MG TABLET. PO SCH (10:29)
[2018-10-31] MEDS: DOCUSATE SODIUM 100 MG CAPSULE. PO SCH (10:30)
[2018-10-31] MEDS: PSYLLIUM HUSK (SUGAR FREE) 1 PKT PACKET PO SCH (10:30)
[2018-10-31] MEDS: POLYETHYLENE GLYCOL 3350 17 GM PACKET. PO SCH (10:30)
[2018-10-31] MEDS: LABETALOL HCL 200 MG TABLET PO SCH (10:31)
[2018-10-31] MEDS: INSULIN LISPRO 300 UNITS/3 ML VIAL. SQ SCH ×3 (10:38→18:08)
--- NOTE | 2018-10-31 11:11 | PDOC ---
PROGRESS NOTES Subjective Subjective HPI - f/u of Stage 4 metastatic breast cancer with bone metastasis and pleural effusion and ascites. ROS - no dyspnea Objective Objective Vital Signs Date Time Temp Pulse Resp B/P (MAP) Pulse Ox O2 Delivery O2 Flow Rate FiO2 10/31/18 10:38 97 101/40 10/31/18 08:51 95 Nasal Cannula 2.0 10/31/18 07:00 98.1 20 98.1 Intake and Output 10/31/18 07:00 Intake Total 780 ml Output Total 350 ml Balance 430 ml Intake Oral 780 ml Output Urine Total 350 ml # Voids 5 Physical Exam Heart: Normal S1, Normal S2 General: Alert, Oriented X3 Lungs: Clear to auscultation Neuro: Normal speech Psych/Mental Status: Mental status NL Assessment Assessment Problems Medical Problems: (1) Hypercalcemia Status: Acute (2) Hypernatremia Status: Acute (3) Metastatic breast cancer Status: Chronic IMPRESSION AND PLAN: 1. Stage 4 metastatic breast cancer with bone metastasis and pleural effusion and ascites. She was started on Abraxane due to disease progression with prior therapy. She has been on Abraxane since 06/21/2018. However, she developed worsening pleural effusion requiring thoracentesis on 10/11/2018 indicating progressive disease. She has now developed hypercalcemia. This is another sign of disease progression. Her performance status is poor. She spends most of her time sitting or lying at home. ECOG performance status is 3. Considering progressive disease despite chemotherapy and declining functional status, I have recommended to stop further chemotherapy and focus on comfort care and supportive care with the help of hospice. The patient understands and all her questions were answered. Her son Nikhil was also present during my discussion, who expressed that they would like to think about it and will decide in the next few days. f/u with me in 1 week I d/w RN 2. 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 I agree with IV hydration. s/p aredia 10/26/18 Ca now 10.6. 3. 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 Continue to monitor hemoglobin and transfuse if hemoglobin is less than 7. Hb 8.5. 4. Leukopenia due to chemotherapy. Continue to monitor. 5. Pleural effusion, malignant Clinically). Chest x-ray on 10/24/2018 revealed stable pleural effusions. s/p rt thoracentesis 1.1L on 10/31/18. 6. Malignant ascites (positive cytology 06/14/18). 7. Advance directives -I recommended DNR and I explained the rationale in detail, pt wants to remain full code. Comment Review of Relevant I have reviewed the following items patrica (where applicable) has been applied. Labs Laboratory Tests Test 10/29/18 11:33 10/29/18 16:47 10/29/18 20:53 10/30/18 07:51 Glucose (Fingerstick) 351 mg/dL (70-99) 308 mg/dL (70-99) 287 mg/dL (70-99) 223 mg/dL (70-99) Test 10/30/18 11:15 10/30/18 11:50 10/30/18 12:29 10/30/18 16:50 Calcium Level 10.6 mg/dL (8.5-10.1) Urine Collection Type Unknown Urine Color Yellow Urine Clarity Clear Urine pH 5.5 Urine Specific [place] 1.025 Urine Protein 30 mg/dL (NEG-TRACE) Urine Glucose (UA) Negative mg/dL (NEG) Urine Ketones (Stick) Negative mg/dL (NEG) Urine Blood Negative (NEG) Urine Nitrite Negative (NEG) Urine Bilirubin Negative (NEG) Urine Urobilinogen Dipstick 1.0 mg/dL (0.2 mg/dL) Urine Leukocyte Esterase Small (NEG) Urine RBC Occ /HPF (0-2) Urine WBC 5-10 /HPF (0-4) Urine Squamous Epithelial Cells Mod /LPF Urine Amorphous Sediment Present /HPF Urine Bacteria Few /HPF (0-FEW) Urine Hyaline Casts Moderate /HPF Urine Mucus Marked /LPF Glucose (Fingerstick) 236 mg/dL (70-99) 206 mg/dL (70-99) Test 10/30/18 19:55 10/31/18 07:28 Glucose (Fingerstick) 276 mg/dL (70-99) 217 mg/dL (70-99) Laboratory Tests Test 10/30/18 11:15 10/30/18 11:50 10/30/18 12:29 10/30/18 16:50 Calcium Level 10.6 mg/dL (8.5-10.1) Urine Collection Type Unknown Urine Color Yellow Urine Clarity Clear Urine pH 5.5 Urine Specific [place] 1.025 Urine Protein 30 mg/dL (NEG-TRACE) Urine Glucose (UA) Negative mg/dL (NEG) Urine Ketones (Stick) Negative mg/dL (NEG) Urine Blood Negative (NEG) Urine Nitrite Negative (NEG) Urine Bilirubin Negative (NEG) Urine Urobilinogen Dipstick 1.0 mg/dL (0.2 mg/dL) Urine Leukocyte Esterase Small (NEG) Urine RBC Occ /HPF (0-2) Urine WBC 5-10 /HPF (0-4) Urine Squamous Epithelial Cells Mod /LPF Urine Amorphous Sediment Present /HPF Urine Bacteria Few /HPF (0-FEW) Urine Hyaline Casts Moderate /HPF Urine Mucus Marked /LPF Glucose (Fingerstick) 236 mg/dL (70-99) 206 mg/dL (70-99) Test 10/30/18 19:55 10/31/18 07:28 Glucose (Fingerstick) 276 mg/dL (70-99) 217 mg/dL (70-99) Medications Current Medications Lidocaine/ Epinephrine (Let Topical) 3 ml STK-MED ONCE TP ; Start 10/25/18 at 12:24; Stop 10/25/18 at 12:24; Status DC Lidocaine/ Epinephrine (Let Topical) 3 ml 1X ONCE TP Last administered on 10/25/18at 12:38; Start 10/25/18 at 12:30; Stop 10/25/18 at 12:34; Status DC Acetaminophen/ Hydrocodone Bitart (Lortab 5/325) 1 tab 1X ONCE PO Last administered on 10/25/18at 12:49; Start 10/25/18 at 13:15; Stop 10/25/18 at 13:16; Status DC Ondansetron HCl (Zofran) 4 mg PRN Q8HRS PRN IV NAUSEA/VOMITING; Start 10/25/18 at 13:45; Stop 10/26/18 at 13:44; Status DC Morphine Sulfate (Morphine Sulfate) 4 mg PRN Q2HR PRN IV PAIN; Start 10/25/18 at 13:45; Stop 10/26/18 at 13:44; Status DC Acetaminophen (Tylenol) 650 mg PRN Q4HRS PRN PO FEVER Last administered on 10/26/18at 11:34; Start 10/25/18 at 13:45; Stop 10/26/18 at 13:44; Status DC Sodium Chloride 1,000 ml @ 125 mls/hr 1X ONCE IV Last administered on 10/25/18 13:52; Start 10/25/18 at 13:45; Stop 10/25/18 at 21:44; Status DC Lidocaine/ Epinephrine (Let Topical) 3 ml 1X ONCE TP Last administered on 10/25/18 15:58; Start 10/25/18 at 16:00; Stop 10/25/18 at 16:01; Status DC Albuterol Sulfate (Ventolin Neb Soln) 2.5 mg RTQID NEB Last administered on 10/31/18 08:09; Start 10/25/18 at 20:00 Atorvastatin Calcium (Lipitor) 20 mg QHS PO Last administered on 10/30/18 20:32; Start 10/25/18 at 21:00 Bumetanide (Bumex) 0.5 mg PRN DAILY PRN PO EDEMA; Start 10/25/18 at 17:15 Diltiazem HCl (Cardizem 24hr Cd) 240 mg DAILY PO Last administered on 10/31/18 10:38; Start 10/25/18 at 17:30 Acetaminophen/ Hydrocodone Bitart (Lortab 5/325) 1 tab PRN Q6HRS PRN PO SEVERE PAIN Last administered on 10/30/18 06:12; Start 10/25/18 at 17:15 Labetalol HCl (Trandate) 200 mg BID PO Last administered on 10/31/18 10:38; Start 10/25/18 at 21:00 Losartan Potassium (Cozaar) 50 mg DAILY PO Last administered on 10/31/18 10:3 8; Start 10/25/18 at 17:30 Spironolactone (Aldactone) 25 mg PRN DAILY PRN PO EDEMA; Start 10/25/18 at 17:15 Budesonide (Pulmicort) 0.5 mg RTBID NEB Last administered on 10/31/18 08:09; Start 10/25/18 at 20:00 Vitamin D (Vitamin D3) 2,000 unit DAILY PO Last administered on 10/27/18 09:42; Start 10/26/18 at 09:00; Stop 10/28/18 at 08:57; Status DC Dronabinol (Marinol) 5 mg TIDAC PO Last administered on 10/31/18 07:31; Start 10/25/18 at 17:30 Insulin Glargine (Lantus Syringe) 25 unit QHS SQ Last administered on 10/27/18 20:33; Start 10/25/18 at 21:00; Stop 10/28/18 at 14:03; Status DC Insulin Human Lispro (HumaLOG) 15 units TIDWMEALS SQ Last administered on 10/27/18 09:42; Start 10/25/18 at 18:00; Stop 10/28/18 at 14:03; Status DC Insulin Human Lispro (HumaLOG) 0-7 UNITS TIDWMEALS SQ Last administered on 10/25/18 18:23; Start 10/25/18 at 17:30; Stop 10/28/18 at 14:03; Status DC Dextrose (Dextrose 50%-Water Syringe) 12.5 gm PRN Q15MIN PRN IV SEE COMMENTS Last administered on 10/28/18at 07:45; Start 10/25/18 at 17:15; Stop 10/28/18 at 15:16; Status DC Dextrose 250 ml PRN Q15MIN PRN IV SEE COMMENTS; Start 10/25/18 at 17:15; Status Cancel Polyethylene Glycol (miraLAX PACKET) 17 gm PRN DAILY PRN PO CONSTIPATION 1ST CHOICE; Start 10/25/18 at 17:30 Sodium Chloride 1,000 ml @ 100 mls/hr Q10H IV Last administered on 10/25/18 23:25; Start 10/25/18 at 17:30; Stop 10/26/18 at 12:31; Status DC Polyethylene Glycol (miraLAX PACKET) 17 gm DAILY PO Last administered on 10/31/18at 10:38; Start 10/26/18 at 09:00 Docusate Sodium (Colace) 100 mg DAILY PO Last administered on 10/31/18at 10:38; Start 10/26/18 at 09:00 Docusate Sodium (Colace) 100 mg PRN DAILY PRN PO STOOL SOFTENER; Start 10/25/18 at 18:15 Magnesium Hydroxide (Milk Of Magnesia) 2,400 mg PRN DAILY PRN PO CONSTIPATION 2ND CHOICE; Start 10/25/18 at 20:15 Psyllium Hydrophilic Mucilloid (Metamucil Fiber Packet) 1 pkt DAILY PO Last administered on 9/12/19at 10:38; Start 10/26/18 at 13:45 Mirtazapine (Remeron) 7.5 mg QHS PO Last administered on 10/29/18at 21:21; Start 10/26/18 at 21:00 Pamidronate Disodium 60 mg/ Sodium Chloride 250 ml @ 83.333 mls/ hr 1X ONCE IV Last administered on 10/26/18at 14:45; Start 10/26/18 at 14:00; Stop 10/26/18 at 16:59; Status DC Sodium Chloride 500 ml @ 0 mls/hr 1X ONCE IV Last administered on 10/27/18at 12:05; Start 10/27/18 at 10:15; Stop 10/27/18 at 10:17; Status DC Dextrose/Sodium Chloride 1,000 ml @ 75 mls/hr [id number] IV Last administered on 10/29/18at 08:43; Start 10/27/18 at 17:30; Stop 10/29/18 at 16:12; Status DC Ondansetron HCl (Zofran) 4 mg PRN Q6HRS PRN IV NAUSEA/VOMITING; Start 10/28/18 at 12:15 Acetaminophen (Tylenol) 500 mg PRN Q6HRS PRN PO MILD PAIN / TEMP; Start 10/28/18 at 12:15 Acetaminophen/ Codeine Phosphate (Tylenol #3) 1 tab PRN Q6HRS PRN PO MODERATE PAIN; Start 10/28/18 at 12:15 Temazepam (Restoril) 7.5 mg PRN QHS PRN PO INSOMNIA; Start 10/28/18 at 12:15 Magnesium Hydroxide (Milk Of Magnesia) 2,400 mg 1X ONCE PO Last administered on 10/28/18at 14:54; Start 10/28/18 at 14:00; Stop 10/28/18 at 14:03; Status DC Insulin Human Lispro (HumaLOG) 0-9 UNITS TIDWMEALS SQ Last administered on 10/31/18at 10:38; Start 10/28/18 at 17:00 Dextrose (Dextrose 50%-Water Syringe) 12.5 gm PRN Q15MIN PRN IV SEE COMMENTS; Start 10/28/18 at 14:15 Dextrose 250 ml PRN Q15MIN PRN IV SEE COMMENTS; Start 10/28/18 at 14:15 Insulin Glargine (Lantus Syringe) 10 unit QHS SQ Last administered on 10/30/18at 21:58; Start 10/29/18 at 21:00 Sodium Chloride 500 ml @ 500 mls/hr 1X ONCE IV ; Start 10/29/18 at 17:30; Stop 10/29/18 at 18:19; Status DC Active Scripts Active Hydrocodone-Apap 5-325 (Hydrocodone Bit/Acetaminophen) 1 Tab Tablet 1 Tab PO PRN Q6HRS PRN Mirtazapine 7.5 Mg Tablet 7.5 Mg PO QHS 30 Days Proair Hfa (Albuterol Sulfate) 8.5 Gm Hfa.aer.ad 2.5 Mg NEB RTQID 30 Days Reported Symbicort 160-4.5 Mcg Inhaler (Budesonide/Formoterol Fumarate) 10.2 Gm Hfa.aer.ad 2 Puff IH PRN BID PRN Marinol (Dronabinol) 5 Mg Capsule 5 Mg PO TID Bumetanide 1 Mg Tablet 0.5 Tab PO PRN Aldactone (Spironolactone) 25 Mg Tablet 25 Mg PO PRN DAILY Losartan Potassium 50 Mg Tablet 50 Mg PO DAILY Labetalol Hcl 200 Mg Tablet 200 Mg PO BID Cardizem Cd (Diltiazem Hcl) 240 Mg Cap.er.24h 240 Mg PO DAILY Atorvastatin Calcium 20 Mg Tablet 20 Mg PO DAILY Vitamin D3 (Cholecalciferol (Vitamin D3)) 2,000 Unit Tablet 2,000 Unit PO DAILY Vitals/I & O Vital Sign - Last 24 Hours 10/30/18 10/30/18 10/30/18 10/30/18 11:50 15:00 16:14 19:00 Temp 98.1 97.8 98.1 97.8 Pulse 84 100 Resp 18 20 B/P (MAP) 132/54 (80) 156/66 (96) Pulse Ox 96 97 96 95 O2 Delivery Nasal Cannula Nasal Cannula Nasal Cannula Nasal Cannula O2 Flow Rate 2.0 1.0 2.0 2.0 10/30/18 10/30/18 10/30/18 10/30/18 20:00 20:16 20:16 20:32 Pulse 63 B/P (MAP) 159/69 Pulse Ox 98 98 O2 Delivery Nasal Cannula Nasal Cannula Nasal Cannula O2 Flow Rate 2.0 2.0 2.0 10/30/18 10/31/18 10/31/18 10/31/18 23:00 03:00 07:00 08:11 Temp 98.0 98.0 98.1 98.0 98.0 98.1 Pulse 100 102 104 Resp 22 23 20 B/P (MAP) 119/42 (67) 131/48 (75) 119/47 (71) Pulse Ox 92 95 96 98 O2 Delivery Nasal Cannula Nasal Cannula Nasal Cannula Nasal Cannula O2 Flow Rate 2.0 2.0 3.0 2.0 10/31/18 10/31/18 10/31/18 10/31/18 08:12 08:49 08:51 10:38 Pulse 94 97 97 B/P (MAP) 106/46 (66) 101/40 (60) 101/40 Pulse Ox 98 93 95 O2 Delivery Nasal Cannula Nasal Cannula Nasal Cannula O2 Flow Rate 2.0 2.0 2.0 10/31/18 10/31/18 10:38 10:38 Pulse 97 97 B/P (MAP) 101/40 101/40 Intake and Output 10/30/18 10/30/18 10/31/18 15:00 23:00 07:00 Intake Total 410 ml 370 ml 0 ml Output Total 50 ml 300 ml Balance 360 ml 70 ml 0 ml FRANKIE MUNROE MD Oct 31, 2018 11:11
--- NOTE | 2018-10-31 11:27 | PDOC ---
PROGRESS NOTES Chief Complaint Chief Complaint IMPRESSION hypercalcemia, with constipation hypernatremia hyperchloremia hypoGlycemia on insulin metastatic breast cancer st 4 - pt/family CONSIDER hospice - weakness and debility, snu recommended Anemia due to malignancy and chemotherapy - Leukopenia - due to chemotherapy. Pleural effusion, malignant - Chest x-ray on 10/24/2018 revealed stable pleural effusions Moderate bilateral layering pleural effusions with adjacent opacities, right greater than left, similar compared to prior allowing for differences in technique.10/29 Constipation Stage I decubitus ulcer s/p right thoracentesis 10/31 1.2 L of serosanguineous pleural fluid was remove d. ONCOLOGY HAS recommended to stop further chemotherapy and focus on comfort care and supportive care with the help of hospice. family wants to consider thoracentesis,for palliation of symptoms, DR VEGA FOLLOWING 39 MIN PT EXAM, CHART REVIEW, > 50%OF TIME SPENT WITH EXAM, CHART REVIEW, PT CARE COORDINATION History of Present Illness History of Present Illness Calcium down to 11 from 11.9 On 75 mL dectrose IVF and status post Aredia Discussed with heme onc-apparently patient or family not ready for hospice PT recommend SNU if she will not go for hospice SOme hYPOGLYCEMIA today,despite dextrose IVF Plan: consult social work and palliative-discharge disposition is either snu or hospice cleared to go home by heme onc with that level of calcium Dc any insulin bowel regimen gustavo RN Vitals Vitals Vital Signs Date Time Temp Pulse Resp B/P (MAP) Pulse Ox O2 Delivery O2 Flow Rate FiO2 10/31/18 10:38 97 101/40 10/31/18 08:51 95 Nasal Cannula 2.0 10/31/18 07:00 98.1 20 98.1 Physical Exam General: Alert, Oriented X3, Cooperative Heart: Normal S1, Normal S2 Lungs: Crackles, Other Abdomen: Normal bowel sounds, Soft Labs LABS Ultrasound-guided right-sided thoracentesis 10/31/2018 7:58 AM Indication: ct guided right thoracentesis Procedure: Informed consent was obtained. A timeout procedure was performed. Sonographic evaluation of the right chest was performed demonstrating moderate pleural effusion. The right posterior chest was prepped and draped in sterile fashion. 1% lidocaine without epinephrine was administered for local anesthesia. Real-time ultrasonographic guidance was used in passing a [employer] catheter into the right pleural space. 1.2 L of serosanguineous pleural fluid was removed. Samples of fluid were sent to the lab for further evaluation per ordering physician request. The catheter was removed and pressure held to achieve hemostasis. A sterile dressing was applied. No immediate complications were identified. The patient tolerated the procedure well. Impression: right sided ultrasound-guided thoracentesis Laboratory Tests Test 10/30/18 11:50 10/30/18 12:29 10/30/18 16:50 10/30/18 19:55 Urine Collection Type Unknown Urine Color Yellow Urine Clarity Clear Urine pH 5.5 Urine Specific [place] 1.025 Urine Protein 30 mg/dL (NEG-TRACE) Urine Glucose (UA) Negative mg/dL (NEG) Urine Ketones (Stick) Negative mg/dL (NEG) Urine Blood Negative (NEG) Urine Nitrite Negative (NEG) Urine Bilirubin Negative (NEG) Urine Urobilinogen Dipstick 1.0 mg/dL (0.2 mg/dL) Urine Leukocyte Esterase Small (NEG) Urine RBC Occ /HPF (0-2) Urine WBC 5-10 /HPF (0-4) Urine Squamous Epithelial Cells Mod /LPF Urine Amorphous Sediment Present /HPF Urine Bacteria Few /HPF (0-FEW) Urine Hyaline Casts Moderate /HPF Urine Mucus Marked /LPF Glucose (Fingerstick) 236 mg/dL (70-99) 206 mg/dL (70-99) 276 mg/dL (70-99) Test 10/31/18 07:28 Glucose (Fingerstick) 217 mg/dL (70-99) Assessment and Plan Assessmemt and Plan Problems Medical Problems: (1) Hypercalcemia Status: Acute (2) Hypernatremia Status: Acute (3) Metastatic breast cancer Status: Chronic Comment Review of Relevant I have reviewed the following items patrica (where applicable) has been applied. Labs Laboratory Tests Test 10/29/18 11:33 10/29/18 16:47 10/29/18 20:53 10/30/18 07:51 Glucose (Fingerstick) 351 mg/dL (70-99) 308 mg/dL (70-99) 287 mg/dL (70-99) 223 mg/dL (70-99) Test 10/30/18 11:15 10/30/18 11:50 10/30/18 12:29 10/30/18 16:50 Calcium Level 10.6 mg/dL (8.5-10.1) Urine Collection Type Unknown Urine Color Yellow Urine Clarity Clear Urine pH 5.5 Urine Specific [place] 1.025 Urine Protein 30 mg/dL (NEG-TRACE) Urine Glucose (UA) Negative mg/dL (NEG) Urine Ketones (Stick) Negative mg/dL (NEG) Urine Blood Negative (NEG) Urine Nitrite Negative (NEG) Urine Bilirubin Negative (NEG) Urine Urobilinogen Dipstick 1.0 mg/dL (0.2 mg/dL) Urine Leukocyte Esterase Small (NEG) Urine RBC Occ /HPF (0-2) Urine WBC 5-10 /HPF (0-4) Urine Squamous Epithelial Cells Mod /LPF Urine Amorphous Sediment Present /HPF Urine Bacteria Few /HPF (0-FEW) Urine Hyaline Casts Moderate /HPF Urine Mucus Marked /LPF Glucose (Fingerstick) 236 mg/dL (70-99) 206 mg/dL (70-99) Test 10/30/18 19:55 10/31/18 07:28 Glucose (Fingerstick) 276 mg/dL (70-99) 217 mg/dL (70-99) Laboratory Tests Test 10/30/18 11:50 10/30/18 12:29 10/30/18 16:50 10/30/18 19:55 Urine Collection Type Unknown Urine Color Yellow Urine Clarity Clear Urine pH 5.5 Urine Specific [place] 1.025 Urine Protein 30 mg/dL (NEG-TRACE) Urine Glucose (UA) Negative mg/dL (NEG) Urine Ketones (Stick) Negative mg/dL (NEG) Urine Blood Negative (NEG) Urine Nitrite Negative (NEG) Urine Bilirubin Negative (NEG) Urine Urobilinogen Dipstick 1.0 mg/dL (0.2 mg/dL) Urine Leukocyte Esterase Small (NEG) Urine RBC Occ /HPF (0-2) Urine WBC 5-10 /HPF (0-4) Urine Squamous Epithelial Cells Mod /LPF Urine Amorphous Sediment Present /HPF Urine Bacteria Few /HPF (0-FEW) Urine Hyaline Casts Moderate /HPF Urine Mucus Marked /LPF Glucose (Fingerstick) 236 mg/dL (70-99) 206 mg/dL (70-99) 276 mg/dL (70-99) Test 10/31/18 07:28 Glucose (Fingerstick) 217 mg/dL (70-99) Medications Current Medications Lidocaine/ Epinephrine (Let Topical) 3 ml STK-MED ONCE TP ; Start 10/25/18 at 12:24; Stop 10/25/18 at 12:24; Status DC Lidocaine/ Epinephrine (Let Topical) 3 ml 1X ONCE TP Last administered on 10/25/18at 12:38; Start 10/25/18 at 12:30; Stop 10/25/18 at 12:34; Status DC Acetaminophen/ Hydrocodone Bitart (Lortab 5/325) 1 tab 1X ONCE PO Last admin istered on 10/25/18at 12:49; Start 10/25/18 at 13:15; Stop 10/25/18 at 13:16; Status DC Ondansetron HCl (Zofran) 4 mg PRN Q8HRS PRN IV NAUSEA/VOMITING; Start 10/25/18 at 13:45; Stop 10/26/18 at 13:44; Status DC Morphine Sulfate (Morphine Sulfate) 4 mg PRN Q2HR PRN IV PAIN; Start 10/25/18 at 13:45; Stop 10/26/18 at 13:44; Status DC Acetaminophen (Tylenol) 650 mg PRN Q4HRS PRN PO FEVER Last administered on 10/26/18 11:34; Start 10/25/18 at 13:45; Stop 10/26/18 at 13:44; Status DC Sodium Chloride 1,000 ml @ 125 mls/hr 1X ONCE IV Last administered on 10/25/18at 13:52; Start 10/25/18 at 13:45; Stop 10/25/18 at 21:44; Status DC Lidocaine/ Epinephrine (Let Topical) 3 ml 1X ONCE TP Last administered on 10/25/18at 15:58; Start 10/25/18 at 16:00; Stop 10/25/18 at 16:01; Status DC Albuterol Sulfate (Ventolin Neb Soln) 2.5 mg RTQID NEB Last administered on 10/31/18at 08:09; Start 10/25/18 at 20:00 Atorvastatin Calcium (Lipitor) 20 mg QHS PO Last administered on 10/30/18at 20:32; Start 10/25/18 at 21:00 Bumetanide (Bumex) 0.5 mg PRN DAILY PRN PO EDEMA; Start 10/25/18 at 17:15 Diltiazem HCl (Cardizem 24hr Cd) 240 mg DAILY PO Last administered on 10/31/18 10:38; Start 10/25/18 at 17:30 Acetaminophen/ Hydrocodone Bitart (Lortab 5/325) 1 tab PRN Q6HRS PRN PO SEVERE PAIN Last administered on 10/30/18 06:12; Start 10/25/18 at 17:15 Labetalol HCl (Trandate) 200 mg BID PO Last administered on 10/31/18 10:38; Start 10/25/18 at 21:00 Losartan Potassium (Cozaar) 50 mg DAILY PO Last administered on 10/31/18 10:38; Start 10/25/18 at 17:30 Spironolactone (Aldactone) 25 mg PRN DAILY PRN PO EDEMA; Start 10/25/18 at 17:15 Budesonide (Pulmicort) 0.5 mg RTBID NEB Last administered on 10/31/18 08:09; Start 10/25/18 at 20:00 Vitamin D (Vitamin D3) 2,000 unit DAILY PO Last administered on 10/27/18 09:42; Start 10/26/18 at 09:00; Stop 10/28/18 at 08:57; Status DC Dronabinol (Marinol) 5 mg TIDAC PO Last administered on 10/31/18 07:31; Start 10/25/18 at 17:30 Insulin Glargine (Lantus Syringe) 25 unit QHS SQ Last administered on 10/27/18 20:33; Start 10/25/18 at 21:00; Stop 10/28/18 at 14:03; Status DC Insulin Human Lispro (HumaLOG) 15 units TIDWMEALS SQ Last administered on 10/27/18 09:42; Start 10/25/18 at 18:00; Stop 10/28/18 at 14:03; Status DC Insulin Human Lispro (HumaLOG) 0-7 UNITS TIDWMEALS SQ Last administered on 10/25/18 18:23; Start 10/25/18 at 17:30; Stop 10/28/18 at 14:03; Status DC Dextrose (Dextrose 50%-Water Syringe) 12.5 gm PRN Q15MIN PRN IV SEE COMMENTS Last administered on 10/28/18 07:45; Start 10/25/18 at 17:15; Stop 10/28/18 at 15:16; Status DC Dextrose 250 ml PRN Q15MIN PRN IV SEE COMMENTS; Start 10/25/18 at 17:15; Status Cancel Polyethylene Glycol (miraLAX PACKET) 17 gm PRN DAILY PRN PO CONSTIPATION 1ST CHOICE; Start 10/25/18 at 17:30 Sodium Chloride 1,000 ml @ 100 mls/hr Q10H IV Last administered on 10/25/18at 23:25; Start 10/25/18 at 17:30; Stop 10/26/18 at 12:31; Status DC Polyethylene Glycol (miraLAX PACKET) 17 gm DAILY PO Last administered on 10/31/18 10:38; Start 10/26/18 at 09:00 Docusate Sodium (Colace) 100 mg DAILY PO Last administered on 10/31/18 10:38; Start 10/26/18 at 09:00 Docusate Sodium (Colace) 100 mg PRN DAILY PRN PO STOOL SOFTENER; Start 10/25/18 at 18:15 Magnesium Hydroxide (Milk Of Magnesia) 2,400 mg PRN DAILY PRN PO CONSTIPATION 2ND CHOICE; Start 10/25/18 at 20:15 Psyllium Hydrophilic Mucilloid (Metamucil Fiber Packet) 1 pkt DAILY PO Last administered on 10/31/18at 10:38; Start 10/26/18 at 13:45 Mirtazapine (Remeron) 7.5 mg QHS PO Last administered on 10/29/18 21:21; Start 10/26/18 at 21:00 Pamidronate Disodium 60 mg/ Sodium Chloride 250 ml @ 83.333 mls/ hr 1X ONCE IV Last administered on 10/26/18 14:45; Start 10/26/18 at 14:00; Stop 10/26/18 at 16:59; Status DC Sodium Chloride 500 ml @ 0 mls/hr 1X ONCE IV Last administered on 10/27/18at 12:05; Start 10/27/18 at 10:15; Stop 10/27/18 at 10:17; Status DC Dextrose/Sodium Chloride 1,000 ml @ 75 mls/hr [id number] IV Last administered on 10/29/18at 08:43; Start 10/27/18 at 17:30; Stop 10/29/18 at 16:12; Status DC Ondansetron HCl (Zofran) 4 mg PRN Q6HRS PRN IV NAUSEA/VOMITING; Start 10/28/18 at 12:15 Acetaminophen (Tylenol) 500 mg PRN Q6HRS PRN PO MILD PAIN / TEMP; Start 10/28/18 at 12:15 Acetaminophen/ Codeine Phosphate (Tylenol #3) 1 tab PRN Q6HRS PRN PO MODERATE PAIN; Start 10/28/18 at 12:15 Temazepam (Restoril) 7.5 mg PRN QHS PRN PO INSOMNIA; Start 10/28/18 at 12:15 Magnesium Hydroxide (Milk Of Magnesia) 2,400 mg 1X ONCE PO Last administered on 10/28/18at 14:54; Start 10/28/18 at 14:00; Stop 10/28/18 at 14:03; Status DC Insulin Human Lispro (HumaLOG) 0-9 UNITS TIDWMEALS SQ Last administered on 10/31/18at 10:38; Start 10/28/18 at 17:00 Dextrose (Dextrose 50%-Water Syringe) 12.5 gm PRN Q15MIN PRN IV SEE COMMENTS; Start 10/28/18 at 14:15 Dextrose 250 ml PRN Q15MIN PRN IV SEE COMMENTS; Start 10/28/18 at 14:15 Insulin Glargine (Lantus Syringe) 10 unit QHS SQ Last administered on 10/30/18at 21:58; Start 10/29/18 at 21:00 Sodium Chloride 500 ml @ 500 mls/hr 1X ONCE IV ; Start 10/29/18 at 17:30; Stop 10/29/18 at 18:19; Status DC Active Scripts Active Hydrocodone-Apap 5-325 (Hydrocodone Bit/Acetaminophen) 1 Tab Tablet 1 Tab PO PRN Q6HRS PRN Mirtazapine 7.5 Mg Tablet 7.5 Mg PO QHS 30 Days Proair Hfa (Albuterol Sulfate) 8.5 Gm Hfa.aer.ad 2.5 Mg NEB RTQID 30 Days Reported Symbicort 160-4.5 Mcg Inhaler (Budesonide/Formoterol Fumarate) 10.2 Gm Hfa.aer.ad 2 Puff IH PRN BID PRN Marinol (Dronabinol) 5 Mg Capsule 5 Mg PO TID Bumetanide 1 Mg Tablet 0.5 Tab PO PRN Aldactone (Spironolactone) 25 Mg Tablet 25 Mg PO PRN DAILY Losartan Potassium 50 Mg Tablet 50 Mg PO DAILY Labetalol Hcl 200 Mg Tablet 200 Mg PO BID Cardizem Cd (Diltiazem Hcl) 240 Mg Cap.er.24h 240 Mg PO DAILY Atorvastatin Calcium 20 Mg Tablet 20 Mg PO DAILY Vitamin D3 (Cholecalciferol (Vitamin D3)) 2,000 Unit Tablet 2,000 Unit PO DAILY Vitals/I & O Vital Sign - Last 24 Hours 10/30/18 10/30/18 10/30/18 10/30/18 11:50 15:00 16:14 19:00 Temp 98.1 97.8 98.1 97.8 Pulse 84 100 Resp 18 20 B/P (MAP) 132/54 (80) 156/66 (96) Pulse Ox 96 97 96 95 O2 Delivery Nasal Cannula Nasal Cannula Nasal Cannula Nasal Cannula O2 Flow Rate 2.0 1.0 2.0 2.0 10/30/18 10/30/18 10/30/18 10/30/18 20:00 20:16 20:16 20:32 Pulse 63 B/P (MAP) 159/69 Pulse Ox 98 98 O2 Delivery Nasal Cannula Nasal Cannula Nasal Cannula O2 Flow Rate 2.0 2.0 2.0 10/30/18 10/31/18 10/31/18 10/31/18 23:00 03:00 07:00 08:11 Temp 98.0 98.0 98.1 98.0 98.0 98.1 Pulse 100 102 104 Resp 22 23 20 B/P (MAP) 119/42 (67) 131/48 (75) 119/47 (71) Pulse Ox 92 95 96 98 O2 Delivery Nasal Cannula Nasal Cannula Nasal Cannula Nasal Cannula O2 Flow Rate 2.0 2.0 3.0 2.0 10/31/18 10/31/18 10/31/18 10/31/18 08:12 08:49 08:51 10:38 Pulse 94 97 97 B/P (MAP) 106/46 (66) 101/40 (60) 101/40 Pulse Ox 98 93 95 O2 Delivery Nasal Cannula Nasal Cannula Nasal Cannula O2 Flow Rate 2.0 2.0 2.0 10/31/18 10/31/18 10:38 10:38 Pulse 97 97 B/P (MAP) 101/40 101/40 Intake and Output 10/30/18 10/30/18 10/31/18 14:59 22:59 06:59 Intake Total 410 ml 370 ml 0 ml Output Total 50 ml 300 ml Balance 360 ml 70 ml 0 ml KOSTAS RODRIGUEZ MD Oct 31, 2018 11:27
--- NOTE | 2018-10-31 11:57 | PDOC ---
PULMONARY PROGRESS NOTES Subjective s/p right thoracentesis this am Vitals Vital Signs Date Time Temp Pulse Resp B/P (MAP) Pulse Ox O2 Delivery O2 Flow Rate FiO2 10/31/18 10:38 97 101/40 10/31/18 08:51 95 Nasal Cannula 2.0 10/31/18 07:00 98.1 20 98.1 General: Lethargic Lungs: Other (decrease bases) Cardiovascular: S1, S2 Abdomen: Soft Extremities: Other (2+edema) Labs Laboratory Tests Test 10/29/18 16:47 10/29/18 20:53 10/30/18 07:51 10/30/18 11:15 Glucose (Fingerstick) 308 mg/dL (70-99) 287 mg/dL (70-99) 223 mg/dL (70-99) Calcium Level 10.6 mg/dL (8.5-10.1) Test 10/30/18 11:50 10/30/18 12:29 10/30/18 16:50 10/30/18 19:55 Urine Collection Type Unknown Urine Color Yellow Urine Clarity Clear Urine pH 5.5 Urine Specific [place] 1.025 Urine Protein 30 mg/dL (NEG-TRACE) Urine Glucose (UA) Negative mg/dL (NEG) Urine Ketones (Stick) Negative mg/dL (NEG) Urine Blood Negative (NEG) Urine Nitrite Negative (NEG) Urine Bilirubin Negative (NEG) Urine Urobilinogen Dipstick 1.0 mg/dL (0.2 mg/dL) Urine Leukocyte Esterase Small (NEG) Urine RBC Occ /HPF (0-2) Urine WBC 5-10 /HPF (0-4) Urine Squamous Epithelial Cells Mod /LPF Urine Amorphous Sediment Present /HPF Urine Bacteria Few /HPF (0-FEW) Urine Hyaline Casts Moderate /HPF Urine Mucus Marked /LPF Glucose (Fingerstick) 236 mg/dL (70-99) 206 mg/dL (70-99) 276 mg/dL (70-99) Test 10/31/18 07:28 10/31/18 11:29 Glucose (Fingerstick) 217 mg/dL (70-99) 204 mg/dL (70-99) Laboratory Tests Test 10/30/18 12:29 10/30/18 16:50 10/30/18 19:55 10/31/18 07:28 Glucose (Fingerstick) 236 mg/dL (70-99) 206 mg/dL (70-99) 276 mg/dL (70-99) 217 mg/dL (70-99) Test 10/31/18 11:29 Glucose (Fingerstick) 204 mg/dL (70-99) Medications Active Scripts Medications Dose Route/Sig Max Daily Dose Days Date Category Hydrocodone-Apap 5-325 (Hydrocodone Bit/Acetaminophen) 1 Tab Tablet 1 Tab PO PRN Q6HRS PRN 10/28/18 Rx Symbicort 160-4.5 Mcg Inhaler (Budesonide/Formoterol Fumarate) 10.2 Gm Hfa.aer.ad 2 Puff IH PRN BID PRN 10/25/18 Reported Marinol (Dronabinol) 5 Mg Capsule 5 Mg PO TID 10/25/18 Reported Bumetanide 1 Mg Tablet 0.5 Tab PO PRN 10/25/18 Reported Aldactone (Spironolactone) 25 Mg Tablet 25 Mg PO PRN DAILY 10/15/18 Reported Losartan Potassium 50 Mg Tablet 50 Mg PO DAILY 10/15/18 Reported Labetalol Hcl 200 Mg Tablet 200 Mg PO BID 10/15/18 Reported Cardizem Cd (Diltiazem Hcl) 240 Mg Cap.er.24h 240 Mg PO DAILY 10/15/18 Reported Mirtazapine 7.5 Mg Tablet 7.5 Mg PO QHS 30 06/21/18 Rx Proair Hfa (Albuterol Sulfate) 8.5 Gm Hfa.aer.ad 2.5 Mg NEB RTQID 30 06/21/18 Rx Atorvastatin Calcium 20 Mg Tablet 20 Mg PO DAILY 06/11/18 Reported Vitamin D3 (Cholecalciferol (Vitamin D3)) 2,000 Unit Tablet 2,000 Unit PO DAILY 03/01/17 Reported Impression . 1. Stage 4 metastatic breast cancer with bone metastases and malignant left-sided pleural effusion and malignant ascites. She was started on Abraxane per Oncology due to disease progression; however, she developed pleural effusions requiring thoracentesis indicating progressive disease. She is now admitted with hypercalcemia related to her malignancy suggesting progression of cancer as well. Dr. Millan has suggested to stop further chemotherapy and focus on comfort care. 2. Bilateral pleural effusions. She required thoracentesis collectively on 7 occasions. The left side has documented malignancy. Spoke with pathologist, right-sided fluid was never sent sent for cytology in the past.. At this present moment, the right side is larger than the left side . s/p right thoracentesis and if confirmed malignancy then she would definitely need a PleurX catheter on the right side in future. 3. Possible chronic obstructive pulmonary disease. 4. Leukopenia due to chemotherapy. 5. 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 Plan . 1. Discussed with RN. s/p right thoracentesis. would need a right PleurX catheter if malignancy is confirmed and fluid re- accumulates in future 2. History of grade 1 diastolic dysfunction and also severe protein-calorie malnutrition, which is also contributing to reaccumulation of pleural effusions. 3. I had a lengthy discussion with the [id number] 10/30. At this point, they are not ready for hospice. They need a better understanding of the progression of cancer and I will have Dr. Millan explain to them. ALINA VEGA MD Oct 31, 2018 11:57
[2018-10-31] MEDS ORDERED: INSULIN GLARGINE SYRINGE. SQ SCH (13:15)
[2018-10-31] MEDS ORDERED: LOSARTAN POTASSIUM 25 MG TABLET. PO SCH (13:15)
[2018-10-31 13:31] LABS: BASO % 0 % (0-3); EOS % 1 % (0-3); HEMATOCRIT 25.1 % (36.0-47.0); HEMOGLOBIN 7.9 g/dL (12.0-15.5); LYMPH # 0.3 x10^3/uL (1.0-4.8); LYMPH % 12 % (24-48); MEAN CORPUSCULAR HEMOGLOBIN 27 pg (25-35); MEAN CORPUSCULAR HGB CONC 32 g/dL (31-37); MEAN CORPUSCULAR VOLUME 87 fL (79-100); MONO # 0.3 x10^3/uL (0.0-1.1); MONO % 13 % (0-9); NEUT # 1.7 x10^3/uL (1.8-7.7); NEUT % 73 % (31-73); PLATELET COUNT 197 x10^3/uL (140-400); RED BLOOD COUNT 2.89 x10^6/uL (3.50-5.40); RED CELL DISTRIBUTION WIDTH 22.2 % (11.5-14.5); WHITE BLOOD COUNT 2.3 x10^3/uL (4.0-11.0)
[2018-10-31] MEDS: HYDROcodone/APAP 5/325MG 1 TAB TABLET PO PRN (13:37)
[2018-10-31 13:44] LABS: CALCIUM 10.3 mg/dL (8.5-10.1); CREATININE 0.9 mg/dL (0.6-1.0); GFR 73.7; POTASSIUM 4.9 mmol/L (3.5-5.1)
--- NOTE | 2018-10-31 15:18 | PDOC2 ---
MIGUEL GARG MECHANIC CHIEF 10/31/18 1517: CARDIAC CONSULT DATE OF CONSULT Date of Consult DATE: 10/31/18 TIME: 15:03 REASON FOR CONSULT Reason for Consult: Family Request REFERRING PHYSICIAN Referring Physician: Dr. Quinn SOURCE Source: Chart review, Patient HISTORY OF PRESENT ILLNESS HISTORY OF PRESENT ILLNESS This is a 78 yo female, with a history of metastatic breast CA current receiving chemotherapy, who presented secondary to abnormal Ca level. Known to our service from outpatient clinic. Family requesting to be seen due to fluctuating blood pressure. Patient presently drowsy laying in bed. No complaints of chest pain, dizziness, diaphoresis, or nausea/vomiting. Shortness of breath is better follow ing thoracentesis. PAST MEDICAL HISTORY Cardiovascular: CHF, HTN, Hyperlipidemia Pulmonary: Asthma, Other (recurrent pleural effusion ) GI: GERD Heme/Onc: Cancer (breast) Musculoskeletal: Osteoarthritis Endocrine: Diabetes PAST SURGICAL HISTORY Past Surgical History: Cataract Removal, Other (left mastectomy ) FAMILY HISTORY Family History: Cancer SOCIAL HISTORY Smoke: Quit ALCOHOL: none Drugs: None Lives: with Family ALLERGIES ALLERGIES: Coded Allergies: No Known Drug Allergies (Unverified , 09/20/18) ROS Review of System 14 point ROS conducted with pertinent positives noted above in HPI. PHYSICAL EXAM General: Alert, Cooperative, Other (drowsy, fatigued ) HEENT: Atraumatic, Mucous membr. moist/pink Lungs: Clear to auscultation Heart: Regular rate (heart tones regular ), Normal S1, Normal S2 Abdomen: Soft, No hepatosplenomegaly Extremities: Other (trace bilateral LE edema ) Skin: No breakdown, No significant lesion Neuro: Sensation intact Psych/Mental Status: Other (drowsy ) MUSCULOSKELETAL: Osteoarthritic changes both hands VITALS/I&O VITALS/I&O: Vital Signs Date Time Temp Pulse Resp B/P (MAP) Pulse Ox O2 Delivery O2 Flow Rate FiO2 10/31/18 13:38 16 Room Air 10/31/18 11:58 2.0 10/31/18 11:00 98.2 92 108/43 (64) 95 98.2 I & O 10/30/18 10/30/18 10/31/18 15:00 23:00 07:00 Intake Total 410 ml 370 ml 0 ml Output Total 50 ml 300 ml Balance 360 ml 70 ml 0 ml LABS Lab: Laboratory Tests Test 10/30/18 16:50 10/30/18 19:55 10/31/18 07:28 10/31/18 11:29 Glucose (Fingerstick) 206 mg/dL (70-99) H 276 mg/dL (70-99) H 217 mg/dL (70-99) H 204 mg/dL (70-99) H Test 10/31/18 13:15 White Blood Count 2.3 x10^3/uL (4.0-11.0) L Red Blood Count 2.89 x10^6/uL (3.50-5.40) L Hemoglobin 7.9 g/dL (12.0-15.5) L Hematocrit 25.1 % (36.0-47.0) L Mean Corpuscular Volume 87 fL (79-100) Mean Corpuscular Hemoglobin 27 pg (25-35) Mean Corpuscular Hemoglobin Concent 32 g/dL (31-37) Red Cell Distribution Width 22.2 % (11.5-14.5) H Platelet Count 197 x10^3/uL (140-400) Neutrophils (%) (Auto) 73 % (31-73) Lymphocytes (%) (Auto) 12 % (24-48) L Monocytes (%) (Auto) 13 % (0-9) H Eosinophils (%) (Auto) 1 % (0-3) Basophils (%) (Auto) 0 % (0-3) Neutrophils # (Auto) 1.7 x10^3/uL (1.8-7.7) L Lymphocytes # (Auto) 0.3 x10^3/uL (1.0-4.8) L Monocytes # (Auto) 0.3 x10^3/uL (0.0-1.1) Eosinophils # (Auto) 0.0 x10^3/uL (0.0-0.7) Basophils # (Auto) 0.0 x10^3/uL (0.0-0.2) Sodium Level 147 mmol/L (136-145) H Potassium Level 4.9 mmol/L (3.5-5.1) Chloride Level 113 mmol/L (98-107) H Carbon Dioxide Level 32 mmol/L (21-32) Anion Gap 2 (6-14) L Blood Urea Nitrogen 38 mg/dL (7-20) H Creatinine 0.9 mg/dL (0.6-1.0) Estimated GFR (Cockcroft-Gault) 73.7 Glucose Level 247 mg/dL (70-99) H Calcium Level 10.3 mg/dL (8.5-10.1) H Laboratory Tests 10/31/18 13:15 Laboratory Tests 10/31/18 13:15 ECHOCARDIOGRAM ECHOCARDIOGRAM <Conclusion> The left ventricular systolic function is normal. The Ejection Fraction is 60-65%. There is normal LV segmental wall motion. Transmitral Doppler flow pattern is Grade I-abnormal relaxation pattern. Trace mitral regurgitation. Trace tricuspid regurgitation with an estimated PAP of 32 mmHg. There is a trace circumferential pericardial effusion. DATE: 06/12/18 1501 ASSESSMENT/PLAN ASSESSMENT/PLAN 1. Stage IV breast CA with metastasis to bone; hematology recommending discontinuing treatment and transition to comfort measures/Hospice 2. Recurrent pleural effusion secondary to malignancy; s/p rt thoracentesis with 1.2L removed. 3. Leukopenia; secondary ot chemo 4. Hypercalcemia; due to malignancy 5. Anemia; transfused as warranted 6. Chronic diastolic HF; LVEF 60-65% per echo 05/2018. 7. Hypertension; low-normotensive 8. Hyperlipidemia; statin Recommendations Discontinue losartan. Decreases labetalol Continue Cardizem at a lower dose Follow oncology, pulmonary recs Supportive care DENISE COLÓN MD 10/31/182032: CARDIAC CONSULT ASSESSMENT/PLAN ASSESSMENT/PLAN Patient seen and examined. Agree with BACK MAKER's assessment and plan. Chronic diastolic HF compensated Recent echo showed normal LV systolic function Agree with stopping losartan and decreasing labetalol and CZM dose as stated above for hypotension Oncology following for State IV breast cancer Thank you for your consultation MIGUEL GARG APRN Oct 31, 2018 15:17 DENISE COLÓN MD Oct 31, 2018 20:33
--- NOTE | 2018-10-31 16:35 | PDOC ---
Provider Note Provider Note I received a call from pt's son that the pt and family are not ready for hospice/comfort care yet. They want to continue aggressive care. I d/w Gila GALAN. FRANKIE MUNROE MD Oct 31, 2018 16:35
[2018-10-31] MEDS: MIRTAZAPINE 7.5 MG TABLET. PO SCH (21:00)
[2018-10-31] MEDS: LABETALOL HCL 100 MG TABLET. PO SCH (21:00)
[2018-10-31] MEDS: ATORVASTATIN CALCIUM 20 MG TABLET PO SCH (21:00)
[2018-10-31] MEDS: INSULIN GLARGINE SYRINGE. SQ SCH (21:00)
[2018-11-01 03:00] VITALS: BP 102/36
[2018-11-01 07:00] VITALS: BP 125/48
[2018-11-01] MEDS: DRONABINOL 2.5 MG CAPSULE. PO SCH ×3 (07:35→16:26)
[2018-11-01] MEDS: ALBUTEROL SULFATE 2.5 MG/3 ML NEBU. NEB SCH ×4 (07:53→20:14)
[2018-11-01] MEDS: BUDESONIDE 0.5 MG/2 ML NEBU. NEB SCH ×2 (07:53→20:14)
--- NOTE | 2018-11-01 07:58 | PDOC ---
PROGRESS NOTES Chief Complaint Chief Complaint IMPRESSION ERROR, NOT SEEN BY ME TODAY hypercalcemia, with constipation hypernatremia hyperchloremia hypoGlycemia on insulin metastatic breast cancer st 4 - pt/family CONSIDER hospice - weakness and debility, snu recommended Anemia due to malignancy and chemotherapy - Leukopenia - due to chemotherapy. Pleural effusion, malignant - Chest x-ray on 10/24/2018 revealed stable pleural effusions Moderate bilateral layering pleural effusions with adjacent opacities, right greater than left, similar compared to prior allowing for differences in technique.10/29 Constipation Stage I decubitus ulcer s/p right thoracentesis 10/31 1.2 L of serosanguineous pleural fluid was removed. ONCOLOGY HAS recommended to stop further chemotherapy and focus on comfort care and supportive care with the help of hospice. family wants to consider thoracentesis,for palliation of symptoms, DR VEGA FOLLOWING History of Present Illness History of Present Illness Calcium down to 11 from 11.9 On 75 mL dectrose IVF and status post Aredia Discussed with heme onc-apparently patient or family not ready for hospice PT recommend SNU if she will not go for hospice SOme hYPOGLYCEMIA today,despite dextrose IVF Plan: consult social work and palliative-discharge disposition is either snu or hospice cleared to go home by heme onc with that level of calcium Dc any insulin bowel regimen dw RN Vitals Vitals Vital Signs Date Time Temp Pulse Resp B/P (MAP) Pulse Ox O2 Delivery O2 Flow Rate FiO2 11/01/18 07:56 97 Nasal Cannula 2.0 11/01/18 03:00 97.9 83 12 102/36 (58) 97.9 Physical Exam General: Other (drowsy, fatigued ) Lungs: Other (decrease bases) Extremities: Other (trace bilateral LE edema ) Skin: No significant lesion Labs LABS Laboratory Tests Test 10/31/18 11:29 10/31/18 13:15 10/31/18 14:28 10/31/18 16:46 Glucose (Fingerstick) 204 mg/dL (70-99) 223 mg/dL (70-99) 180 mg/dL (70-99) White Blood Count 2.3 x10^3/uL (4.0-11.0) Red Blood Count 2.89 x10^6/uL (3.50-5.40) Hemoglobin 7.9 g/dL (12.0-15.5) Hematocrit 25.1 % (36.0-47.0) Mean Corpuscular Volume 87 fL (79-100) Mean Corpuscular Hemoglobin 27 pg (25-35) Mean Corpuscular Hemoglobin Concent 32 g/dL (31-37) Red Cell Distribution Width 22.2 % (11.5-14.5) Platelet Count 197 x10^3/uL (140-400) Neutrophils (%) (Auto) 73 % (31-73) Lymphocytes (%) (Auto) 12 % (24-48) Monocytes (%) (Auto) 13 % (0-9) Eosinophils (%) (Auto) 1 % (0-3) Basophils (%) (Auto) 0 % (0-3) Neutrophils # (Auto) 1.7 x10^3/uL (1.8-7.7) Lymphocytes # (Auto) 0.3 x10^3/uL (1.0-4.8) Monocytes # (Auto) 0.3 x10^3/uL (0.0-1.1) Eosinophils # (Auto) 0.0 x10^3/uL (0.0-0.7) Basophils # (Auto) 0.0 x10^3/uL (0.0-0.2) Sodium Level 147 mmol/L (136-145) Potassium Level 4.9 mmol/L (3.5-5.1) Chloride Level 113 mmol/L (98-107) Carbon Dioxide Level 32 mmol/L (21-32) Anion Gap 2 (6-14) Blood Urea Nitrogen 38 mg/dL (7-20) Creatinine 0.9 mg/dL (0.6-1.0) Estimated GFR (Cockcroft-Gault) 73.7 Glucose Level 247 mg/dL (70-99) Calcium Level 10.3 mg/dL (8.5-10.1) Test 10/31/18 20:01 11/01/18 07:34 Glucose (Fingerstick) 169 mg/dL (70-99) 211 mg/dL (70-99) Assessment and Plan Assessmemt and Plan Problems Medical Problems: (1) Hypercalcemia Status: Acute (2) Hypernatremia Status: Acute (3) Metastatic breast cancer Status: Chronic Comment Review of Relevant I have reviewed the following items patrica (where applicable) has been applied. Labs Laboratory Tests Test 10/30/18 11:15 10/30/18 11:50 10/30/18 12:29 10/30/18 16:50 Calcium Level 10.6 mg/dL (8.5-10.1) Urine Collection Type Unknown Urine Color Yellow Urine Clarity Clear Urine pH 5.5 Urine Specific [place] 1.025 Urine Protein 30 mg/dL (NEG-TRACE) Urine Glucose (UA) Negative mg/dL (NEG) Urine Ketones (Stick) Negative mg/dL (NEG) Urine Blood Negative (NEG) Urine Nitrite Negative (NEG) Urine Bilirubin Negative (NEG) Urine Urobilinogen Dipstick 1.0 mg/dL (0.2 mg/dL) Urine Leukocyte Esterase Small (NEG) Urine RBC Occ /HPF (0-2) Urine WBC 5-10 /HPF (0-4) Urine Squamous Epithelial Cells Mod /LPF Urine Amorphous Sediment Present /HPF Urine Bacteria Few /HPF (0-FEW) Urine Hyaline Casts Moderate /HPF Urine Mucus Marked /LPF Glucose (Fingerstick) 236 mg/dL (70-99) 206 mg/dL (70-99) Test 10/30/18 19:55 10/31/18 07:28 10/31/18 11:29 10/31/18 13:15 Glucose (Fingerstick) 276 mg/dL (70-99) 217 mg/dL (70-99) 204 mg/dL (70-99) White Blood Count 2.3 x10^3/uL (4.0-11.0) Red Blood Count 2.89 x10^6/uL (3.50-5.40) Hemoglobin 7.9 g/dL (12.0-15.5) Hematocrit 25.1 % (36.0-47.0) Mean Corpuscular Volume 87 fL (79-100) Mean Corpuscular Hemoglobin 27 pg (25-35) Mean Corpuscular Hemoglobin Concent 32 g/dL (31-37) Red Cell Distribution Width 22.2 % (11.5-14.5) Platelet Count 197 x10^3/uL (140-400) Neutrophils (%) (Auto) 73 % (31-73) Lymphocytes (%) (Auto) 12 % (24-48) Monocytes (%) (Auto) 13 % (0-9) Eosinophils (%) (Auto) 1 % (0-3) Basophils (%) (Auto) 0 % (0-3) Neutrophils # (Auto) 1.7 x10^3/uL (1.8-7.7) Lymphocytes # (Auto) 0.3 x10^3/uL (1.0-4.8) Monocytes # (Auto) 0.3 x10^3/uL (0.0-1.1) Eosinophils # (Auto) 0.0 x10^3/uL (0.0-0.7) Basophils # (Auto) 0.0 x10^3/uL (0.0-0.2) Sodium Level 147 mmol/L (136-145) Potassium Level 4.9 mmol/L (3.5-5.1) Chloride Level 113 mmol/L (98-107) Carbon Dioxide Level 32 mmol/L (21-32) Anion Gap 2 (6-14) Blood Urea Nitrogen 38 mg/dL (7-20) Creatinine 0.9 mg/dL (0.6-1.0) Estimated GFR (Cockcroft-Gault) 73.7 Glucose Level 247 mg/dL (70-99) Calcium Level 10.3 mg/dL (8.5-10.1) Test 10/31/18 14:28 10/31/18 16:46 10/31/18 20:01 11/01/18 07:34 Glucose (Fingerstick) 223 mg/dL (70-99) 180 mg/dL (70-99) 169 mg/dL (70-99) 211 mg/dL (70-99) Laboratory Tests Test 10/31/18 11:29 10/31/18 13:15 10/31/18 14:28 10/31/18 16:46 Glucose (Fingerstick) 204 mg/dL (70-99) 223 mg/dL (70-99) 180 mg/dL (70-99) White Blood Count 2.3 x10^3/uL (4.0-11.0) Red Blood Count 2.89 x10^6/uL (3.50-5.40) Hemoglobin 7.9 g/dL (12.0-15.5) Hematocrit 25.1 % (36.0-47.0) Mean Corpuscular Volume 87 fL (79-100) Mean Corpuscular Hemoglobin 27 pg (25-35) Mean Corpuscular Hemoglobin Concent 32 g/dL (31-37) Red Cell Distribution Width 22.2 % (11.5-14.5) Platelet Count 197 x10^3/uL (140-400) Neutrophils (%) (Auto) 73 % (31-73) Lymphocytes (%) (Auto) 12 % (24-48) Monocytes (%) (Auto) 13 % (0-9) Eosinophils (%) (Auto) 1 % (0-3) Basophils (%) (Auto) 0 % (0-3) Neutrophils # (Auto) 1.7 x10^3/uL (1.8-7.7) Lymphocytes # (Auto) 0.3 x10^3/uL (1.0-4.8) Monocytes # (Auto) 0.3 x10^3/uL (0.0-1.1) Eosinophils # (Auto) 0.0 x10^3/uL (0.0-0.7) Basophils # (Auto) 0.0 x10^3/uL (0.0-0.2) Sodium Level 147 mmol/L (136-145) Potassium Level 4.9 mmol/L (3.5-5.1) Chloride Level 113 mmol/L (98-107) Carbon Dioxide Level 32 mmol/L (21-32) Anion Gap 2 (6-14) Blood Urea Nitrogen 38 mg/dL (7-20) Creatinine 0.9 mg/dL (0.6-1.0) Estimated GFR (Cockcroft-Gault) 73.7 Glucose Level 247 mg/dL (70-99) Calcium Level 10.3 mg/dL (8.5-10.1) Test 10/31/18 20:01 11/01/18 07:34 Glucose (Fingerstick) 169 mg/dL (70-99) 211 mg/dL (70-99) Medications Current Medications Lidocaine/ Epinephrine (Let Topical) 3 ml STK-MED ONCE TP ; Start 10/25/18 at 12:24; Stop 10/25/18 at 12:24; Status DC Lidocaine/ Epinephrine (Let Topical) 3 ml 1X ONCE TP Last administered on 10/25/18at 12:38; Start 10/25/18 at 12:30; Stop 10/25/18 at 12:34; Status DC Acetaminophen/ Hydrocodone Bitart (Lortab 5/325) 1 tab 1X ONCE PO Last administered on 10/25/18 12:49; Start 10/25/18 at 13:15; Stop 10/25/18 at 13:16; Status DC Ondansetron HCl (Zofran) 4 mg PRN Q8HRS PRN IV NAUSEA/VOMITING; Start 10/25/18 at 13:45; Stop 10/26/18 at 13:44; Status DC Morphine Sulfate (Morphine Sulfate) 4 mg PRN Q2HR PRN IV PAIN; Start 10/25/18 at 13:45; Stop 10/26/18 at 13:44; Status DC Acetaminophen (Tylenol) 650 mg PRN Q4HRS PRN PO FEVER Last administered on 10/26/18 11:34; Start 10/25/18 at 13:45; Stop 10/26/18 at 13:44; Status DC Sodium Chloride 1,000 ml @ 125 mls/hr 1X ONCE IV Last administered on 10/25/18 13:52; Start 10/25/18 at 13:45; Stop 10/25/18 at 21:44; Status DC Lidocaine/ Epinephrine (Let Topical) 3 ml 1X ONCE TP Last administered on 10/25/18 15:58; Start 10/25/18 at 16:00; Stop 10/25/18 at 16:01; Status DC Albuterol Sulfate (Ventolin Neb Soln) 2.5 mg RTQID NEB Last administered on 11/01/18at 07:53; Start 10/25/18 at 20:00 Atorvastatin Calcium (Lipitor) 20 mg QHS PO Last administered on 10/30/18at 20:32; Start 10/25/18 at 21:00 Bumetanide (Bumex) 0.5 mg PRN DAILY PRN PO EDEMA; Start 10/25/18 at 17:15 Diltiazem HCl (Cardizem 24hr Cd) 240 mg DAILY PO Last administered on 10/31/18at 10:38; Start 10/25/18 at 17:30; Stop 10/31/18 at 13:16; Status DC Acetaminophen/ Hydrocodone Bitart (Lortab 5/325) 1 tab PRN Q6HRS PRN PO SEVERE PAIN Last administered on 10/31/18at 13:38; Start 10/25/18 at 17:15 Labetalol HCl (Trandate) 200 mg BID PO Last administered on 10/31/18 10:38; Start 10/25/18 at 21:00; Stop 10/31/18 at 16:02; Status DC Losartan Potassium (Cozaar) 50 mg DAILY PO Last administered on 10/31/18 10:38; Start 10/25/18 at 17:30; Stop 10/31/18 at 13:16; Status DC Spironolactone (Aldactone) 25 mg PRN DAILY PRN PO EDEMA; Start 10/25/18 at 17:15 Budesonide (Pulmicort) 0.5 mg RTBID NEB Last administered on 11/01/18 07:53; Start 10/25/18 at 20:00 Vitamin D (Vitamin D3) 2,000 unit DAILY PO Last administered on 10/27/18 09:42; Start 10/26/18 at 09:00; Stop 10/28/18 at 08:57; Status DC Dronabinol (Marinol) 5 mg TIDAC PO Last administered on 11/01/18 07:35; Start 10/25/18 at 17:30 Insulin Glargine (Lantus Syringe) 25 unit QHS SQ Last administered on 10/27/18 20:33; Start 10/25/18 at 21:00; Stop 10/28/18 at 14:03; Status DC Insulin Human Lispro (HumaLOG) 15 units TIDWMEALS SQ Last administered on 10/27/18 09:42; Start 10/25/18 at 18:00; Stop 10/28/18 at 14:03; Status DC Insulin Human Lispro (HumaLOG) 0-7 UNITS TIDWMEALS SQ Last administered on 10/25/18 18:23; Start 10/25/18 at 17:30; Stop 10/28/18 at 14:03; Status DC Dextrose (Dextrose 50%-Water Syringe) 12.5 gm PRN Q15MIN PRN IV SEE COMMENTS Last administered on 10/28/18 07:45; Start 10/25/18 at 17:15; Stop 10/28/18 at 15:16; Status DC Dextrose 250 ml PRN Q15MIN PRN IV SEE COMMENTS; Start 10/25/18 at 17:15; Status Cancel Polyethylene Glycol (miraLAX PACKET) 17 gm PRN DAILY PRN PO CONSTIPATION 1ST CHOICE; Start 10/25/18 at 17:30 Sodium Chloride 1,000 ml @ 100 mls/hr Q10H IV Last administered on 10/25/18at 2 3:25; Start 10/25/18 at 17:30; Stop 10/26/18 at 12:31; Status DC Polyethylene Glycol (miraLAX PACKET) 17 gm DAILY PO Last administered on 10/31/18at 10:38; Start 10/26/18 at 09:00 Docusate Sodium (Colace) 100 mg DAILY PO Last administered on 10/31/18at 10:38; Start 10/26/18 at 09:00 Docusate Sodium (Colace) 100 mg PRN DAILY PRN PO STOOL SOFTENER; Start 10/25/18 at 18:15 Magnesium Hydroxide (Milk Of Magnesia) 2,400 mg PRN DAILY PRN PO CONSTIPATION 2ND CHOICE; Start 10/25/18 at 20:15 Psyllium Hydrophilic Mucilloid (Metamucil Fiber Packet) 1 pkt DAILY PO Last administered on 10/31/18at 10:38; Start 10/26/18 at 13:45 Mirtazapine (Remeron) 7.5 mg QHS PO Last administered on 10/29/18at 21:21; Start 10/26/18 at 21:00 Pamidronate Disodium 60 mg/ Sodium Chloride 250 ml @ 83.333 mls/ hr 1X ONCE IV Last administered on 10/26/18at 14:45; Start 10/26/18 at 14:00; Stop 10/26/18 at 16:59; Status DC Sodium Chloride 500 ml @ 0 mls/hr 1X ONCE IV Last administered on 10/27/18at 12:05; Start 10/27/18 at 10:15; Stop 10/27/18 at 10:17; Status DC Dextrose/Sodium Chloride 1,000 ml @ 75 mls/hr [id number] IV Last administered on 10/29/18at 08:43; Start 10/27/18 at 17:30; Stop 10/29/18 at 16:12; Status DC Ondansetron HCl (Zofran) 4 mg PRN Q6HRS PRN IV NAUSEA/VOMITING; Start 10/28/18 at 12:15 Acetaminophen (Tylenol) 500 mg PRN Q6HRS PRN PO MILD PAIN / TEMP; Start 10/28/18 at 12:15 Acetaminophen/ Codeine Phosphate (Tylenol #3) 1 tab PRN Q6HRS PRN PO MODERATE PAIN; Start 10/28/18 at 12:15 Temazepam (Restoril) 7.5 mg PRN QHS PRN PO INSOMNIA; Start 10/28/18 at 12:15 Magnesium Hydroxide (Milk Of Magnesia) 2,400 mg 1X ONCE PO Last administered on 10/28/18at 14:54; Start 10/28/18 at 14:00; Stop 10/28/18 at 14:03; Status DC Insulin Human Lispro (HumaLOG) 0-9 UNITS TIDWMEALS SQ Last administered on 10/31/18at 18:13; Start 10/28/18 at 17:00 Dextrose (Dextrose 50%-Water Syringe) 12.5 gm PRN Q15MIN PRN IV SEE COMMENTS; Start 10/28/18 at 14:15 Dextrose 250 ml PRN Q15MIN PRN IV SEE COMMENTS; Start 10/28/18 at 14:15 Insulin Glargine (Lantus Syringe) 10 unit QHS SQ Last administered on 10/30/18at 21:58; Start 10/29/18 at 21:00; Stop 10/31/18 at 13:16; Status DC Sodium Chloride 500 ml @ 500 mls/hr 1X ONCE IV ; Start 10/29/18 at 17:30; Stop 10/29/18 at 18:19; Status DC Diltiazem HCl (Cardizem 24hr Cd) 180 mg DAILY PO Last administered on 10/31/18at 18:13; Start 10/31/18 at 13:15 Insulin Glargine (Lantus Syringe) 12 unit QHS SQ ; Start 10/31/18 at 13:15; Stop 10/31/18 at 16:19; Status DC Losartan Potassium (Cozaar) 25 mg DAILY PO ; Start 10/31/18 at 13:15; Stop 10/20 04/09 at 16:02; Status DC Labetalol HCl (Trandate) 100 mg BID PO ; Start 10/31/18 at 21:00 Insulin Glargine (Lantus Syringe) 12 unit QHS SQ ; Start 10/31/18 at 21:00 Active Scripts Active Hydrocodone-Apap 5-325 (Hydrocodone Bit/Acetaminophen) 1 Tab Tablet 1 Tab PO PRN Q6HRS PRN Mirtazapine 7.5 Mg Tablet 7.5 Mg PO QHS 30 Days Proair Hfa (Albuterol Sulfate) 8.5 Gm Hfa.aer.ad 2.5 Mg NEB RTQID 30 Days Reported Symbicort 160-4.5 Mcg Inhaler (Budesonide/Formoterol Fumarate) 10.2 Gm Hfa.aer.ad 2 Puff IH PRN BID PRN Marinol (Dronabinol) 5 Mg Capsule 5 Mg PO TID Bumetanide 1 Mg Tablet 0.5 Tab PO PRN Aldactone (Spironolactone) 25 Mg Tablet 25 Mg PO PRN DAILY Losartan Potassium 50 Mg Tablet 50 Mg PO DAILY Labetalol Hcl 200 Mg Tablet 200 Mg PO BID Cardizem Cd (Diltiazem Hcl) 240 Mg Cap.er.24h 240 Mg PO DAILY Atorvastatin Calcium 20 Mg Tablet 20 Mg PO DAILY Vitamin D3 (Cholecalciferol (Vitamin D3)) 2,000 Unit Tablet 2,000 Unit PO DAILY Vitals/I & O Vital Sign - Last 24 Hours 10/31/18 10/31/18 10/31/18 10/31/18 08:00 08:11 08:12 08:49 Pulse 94 B/P (MAP) 106/46 (66) Pulse Ox 98 98 93 O2 Delivery Nasal Cannula Nasal Cannula Nasal Cannula Nasal Cannula O2 Flow Rate 2.0 2.0 2.0 2.0 10/31/18 10/31/18 10/31/18 10/31/18 08:51 10:38 10:38 10:38 Pulse 97 97 97 97 B/P (MAP) 101/40 (60) 101/40 101/40 101/40 Pulse Ox 95 O2 Delivery Nasal Cannula O2 Flow Rate 2.0 10/31/18 10/31/18 10/31/18 10/31/18 11:00 11:58 13:38 15:00 Temp 98.2 97.9 98.2 97.9 Pulse 92 86 Resp 18 16 16 B/P (MAP) 108/43 (64) 98/36 (56) Pulse Ox 95 98 O2 Delivery Nasal Cannula Nasal Cannula Room Air Nasal Cannula O2 Flow Rate 3.0 2.0 3.0 10/31/18 10/31/18 10/31/18 10/31/18 15:45 16:10 18:13 18:43 Pulse 86 Resp 18 B/P (MAP) 106/48 Pulse Ox 98 O2 Delivery Nasal Cannula Nasal Cannula Nasal Cannula O2 Flow Rate 2.0 2.0 2.0 10/31/18 10/31/18 10/31/18 11/01/18 19:00 20:00 23:00 03:00 Temp 98.5 97.8 97.9 98.5 97.8 97.9 Pulse 86 86 83 Resp 10 11 12 B/P (MAP) 89/35 (53) 105/38 (60) 102/36 (58) Pulse Ox 96 94 93 O2 Delivery Nasal Cannula Nasal Cannula Nasal Cannula Nasal Cannula O2 Flow Rate 2.0 2.0 2.0 2.0 11/01/18 11/01/18 07:55 07:56 Pulse Ox 97 97 O2 Delivery Nasal Cannula Nasal Cannula O2 Flow Rate 2.0 2.0 Intake and Output 10/31/18 10/31/18 11/01/18 14:59 22:59 06:59 Intake Total 0 ml Output Total 1200 ml Balance -1200 ml 0 ml KOSTAS RODRIGUEZ MD Nov 01, 2018 07:58
[2018-11-01] MEDS: LABETALOL HCL 100 MG TABLET. PO SCH ×2 (08:08→22:42)
[2018-11-01] MEDS: DOCUSATE SODIUM 100 MG CAPSULE. PO SCH (09:00)
[2018-11-01] MEDS: POLYETHYLENE GLYCOL 3350 17 GM PACKET. PO SCH (09:00)
[2018-11-01] MEDS: PSYLLIUM HUSK (SUGAR FREE) 1 PKT PACKET PO SCH (09:00)
[2018-11-01] MEDS: INSULIN LISPRO 300 UNITS/3 ML VIAL. SQ SCH ×3 (09:02→16:55)
--- NOTE | 2018-11-01 10:26 | NUR ---
a.m. stool softeners held d/t patient had large loose bm at 0600
[2018-11-01 11:00] VITALS: BP 121/46
--- NOTE | 2018-11-01 11:20 | PDOC ---
PULMONARY PROGRESS NOTES Subjective s/p right thoracentesis 10/31 Vitals Vital Signs Date Time Temp Pulse Resp B/P (MAP) Pulse Ox O2 Delivery O2 Flow Rate FiO2 11/01/18 08:10 83 125/48 11/01/18 07:56 97 Nasal Cannula 2.0 11/01/18 07:00 97.5 16 97.5 General: Lethargic Lungs: Other (decrease bases) Cardiovascular: S1, S2 Abdomen: Soft Extremities: Other (2+edema) Labs Laboratory Tests Test 10/30/18 11:50 10/30/18 12:29 10/30/18 16:50 10/30/18 19:55 Urine Collection Type Unknown Urine Color Yellow Urine Clarity Clear Urine pH 5.5 Urine Specific [place] 1.025 Urine Protein 30 mg/dL (NEG-TRACE) Urine Glucose (UA) Negative mg/dL (NEG) Urine Ketones (Stick) Negative mg/dL (NEG) Urine Blood Negative (NEG) Urine Nitrite Negative (NEG) Urine Bilirubin Negative (NEG) Urine Urobilinogen Dipstick 1.0 mg/dL (0.2 mg/dL) Urine Leukocyte Esterase Small (NEG) Urine RBC Occ /HPF (0-2) Urine WBC 5-10 /HPF (0-4) Urine Squamous Epithelial Cells Mod /LPF Urine Amorphous Sediment Present /HPF Urine Bacteria Few /HPF (0-FEW) Urine Hyaline Casts Moderate /HPF Urine Mucus Marked /LPF Glucose (Fingerstick) 236 mg/dL (70-99) 206 mg/dL (70-99) 276 mg/dL (70-99) Test 10/31/18 07:28 10/31/18 11:29 10/31/18 13:15 10/31/18 14:28 Glucose (Fingerstick) 217 mg/dL (70-99) 204 mg/dL (70-99) 223 mg/dL (70-99) White Blood Count 2.3 x10^3/uL (4.0-11.0) Red Blood Count 2.89 x10^6/uL (3.50-5.40) Hemoglobin 7.9 g/dL (12.0-15.5) Hematocrit 25.1 % (36.0-47.0) Mean Corpuscular Volume 87 fL (79-100) Mean Corpuscular Hemoglobin 27 pg (25-35) Mean Corpuscular Hemoglobin Concent 32 g/dL (31-37) Red Cell Distribution Width 22.2 % (11.5-14.5) Platelet Count 197 x10^3/uL (140-400) Neutrophils (%) (Auto) 73 % (31-73) Lymphocytes (%) (Auto) 12 % (24-48) Monocytes (%) (Auto) 13 % (0-9) Eosinophils (%) (Auto) 1 % (0-3) Basophils (%) (Auto) 0 % (0-3) Neutrophils # (Auto) 1.7 x10^3/uL (1.8-7.7) Lymphocytes # (Auto) 0.3 x10^3/uL (1.0-4.8) Monocytes # (Auto) 0.3 x10^3/uL (0.0-1.1) Eosinophils # (Auto) 0.0 x10^3/uL (0.0-0.7) Basophils # (Auto) 0.0 x10^3/uL (0.0-0.2) Sodium Level 147 mmol/L (136-145) Potassium Level 4.9 mmol/L (3.5-5.1) Chloride Level 113 mmol/L (98-107) Carbon Dioxide Level 32 mmol/L (21-32) Anion Gap 2 (6-14) Blood Urea Nitrogen 38 mg/dL (7-20) Creatinine 0.9 mg/dL (0.6-1.0) Estimated GFR (Cockcroft-Gault) 73.7 Glucose Level 247 mg/dL (70-99) Calcium Level 10.3 mg/dL (8.5-10.1) Test 10/31/18 16:46 10/31/18 20:01 11/01/18 07:34 Glucose (Fingerstick) 180 mg/dL (70-99) 169 mg/dL (70-99) 211 mg/dL (70-99) Laboratory Tests Test 10/31/18 11:29 10/31/18 13:15 10/31/18 14:28 10/31/18 16:46 Glucose (Fingerstick) 204 mg/dL (70-99) 223 mg/dL (70-99) 180 mg/dL (70-99) White Blood Count 2.3 x10^3/uL (4.0-11.0) Red Blood Count 2.89 x10^6/uL (3.50-5.40) Hemoglobin 7.9 g/dL (12.0-15.5) Hematocrit 25.1 % (36.0-47.0) Mean Corpuscular Volume 87 fL (79-100) Mean Corpuscular Hemoglobin 27 pg (25-35) Mean Corpuscular Hemoglobin Concent 32 g/dL (31-37) Red Cell Distribution Width 22.2 % (11.5-14.5) Platelet Count 197 x10^3/uL (140-400) Neutrophils (%) (Auto) 73 % (31-73) Lymphocytes (%) (Auto) 12 % (24-48) Monocytes (%) (Auto) 13 % (0-9) Eosinophils (%) (Auto) 1 % (0-3) Basophils (%) (Auto) 0 % (0-3) Neutrophils # (Auto) 1.7 x10^3/uL (1.8-7.7) Lymphocytes # (Auto) 0.3 x10^3/uL (1.0-4.8) Monocytes # (Auto) 0.3 x10^3/uL (0.0-1.1) Eosinophils # (Auto) 0.0 x10^3/uL (0.0-0.7) Basophils # (Auto) 0.0 x10^3/uL (0.0-0.2) Sodium Level 147 mmol/L (136-145) Potassium Level 4.9 mmol/L (3.5-5.1) Chloride Level 113 mmol/L (98-107) Carbon Dioxide Level 32 mmol/L (21-32) Anion Gap 2 (6-14) Blood Urea Nitrogen 38 mg/dL (7-20) Creatinine 0.9 mg/dL (0.6-1.0) Estimated GFR (Cockcroft-Gault) 73.7 Glucose Level 247 mg/dL (70-99) Calcium Level 10.3 mg/dL (8.5-10.1) Test 10/31/18 20:01 11/01/18 07:34 Glucose (Fingerstick) 169 mg/dL (70-99) 211 mg/dL (70-99) Medications Active Scripts Medications Dose Route/Sig Max Daily Dose Days Date Category Hydrocodone-Apap 5-325 (Hydrocodone Bit/Acetaminophen) 1 Tab Tablet 1 Tab PO PRN Q6HRS PRN 10/28/18 Rx Symbicort 160-4.5 Mcg Inhaler (Budesonide/Formoterol Fumarate) 10.2 Gm Hfa.aer.ad 2 Puff IH PRN BID PRN 10/25/18 Reported Marinol (Dronabinol) 5 Mg Capsule 5 Mg PO TID 10/25/18 Reported Bumetanide 1 Mg Tablet 0.5 Tab PO PRN 10/25/18 Reported Aldactone (Spironolactone) 25 Mg Tablet 25 Mg PO PRN DAILY 10/15/18 Reported Losartan Potassium 50 Mg Tablet 50 Mg PO DAILY 10/15/18 Reported Labetalol Hcl 200 Mg Tablet 200 Mg PO BID 10/15/18 Reported Cardizem Cd (Diltiazem Hcl) 240 Mg Cap.er.24h 240 Mg PO DAILY 10/15/18 Reported Mirtazapine 7.5 Mg Tablet 7.5 Mg PO QHS 30 06/21/18 Rx Proair Hfa (Albuterol Sulfate) 8.5 Gm Hfa.aer.ad 2.5 Mg NEB RTQID 30 06/21/18 Rx Atorvastatin Calcium 20 Mg Tablet 20 Mg PO DAILY 06/11/18 Reported Vitamin D3 (Cholecalciferol (Vitamin D3)) 2,000 Unit Tablet 2,000 Unit PO DAILY 03/01/17 Reported Impression . 1. Stage 4 metastatic breast cancer with bone metastases and malignant left-sided pleural effusion and malignant ascites. She was started on Abraxane per Oncology due to disease progression; however, she developed pleural effusions requiring thoracentesis indicating progressive disease. She is now admitted with hypercalcemia related to her malignancy suggesting progression of cancer as well. Dr. Millan has suggested to stop further chemotherapy and focus on comfort care. 2. Bilateral pleural effusions. She required thoracentesis collectively on 7 occasions. The left side has documented malignancy. Spoke with pathologist, right-sided fluid was never sent sent for cytology in the past.. At this present moment, the right side is larger than the left side . s/p right thoracentesis 10/31 and if confirmed malignancy then she would definitely need a PleurX catheter on the right side in future. 3. Possible chronic obstructive pulmonary disease. 4. Leukopenia due to chemotherapy. 5. 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 Plan . 1. Discussed with RN. s/p right thoracentesis. would need a right PleurX catheter if malignancy is confirmed and fluid re- accumulates in future 2. History of grade 1 diastolic dysfunction and also severe protein-calorie malnutrition, which is also contributing to re-accumulation of pleural effusions. 3. I had a lengthy discussion with the [id number] 10/30 and again today along with patients son. At this point, they are not ready for hospice. I had explained again about effusions and my plans for re-occurence ALINA EVGA MD Nov 01, 2018 11:20
[2018-11-01] MEDS ORDERED: CONTRAST GIVEN. MC PRN (12:00)
[2018-11-01] MEDS ORDERED: IOHEXOL 300 MG/ML 100ML VIAL. IV ONE (12:00)
--- NOTE | 2018-11-01 13:07 | PATHOLOGY ---
Note [facility] Accession Number: [id number] TESTS RESULT FLAG UNITS REF RANGE LAB Clinician Provided Cytology Information No. of containers..01 Other (Miscellaneous) Source: [A] 01 PLEURAL FLUID DIAGNOSIS: [A] 02 PLEURAL FLUID POSITIVE FOR MALIGNANT CELLS. SEE COMMENT THIS INTERPRETATION INCLUDES EVALUATION OF A CELL BLOCK. Comment: Malignant cells are present in this pleural fluid compatible with a carcinoma. The patient's history of metastatic breast carcinoma is noted. The malignant cells present in this fluid could be financial services representative of a metastatic breast carcinoma. The case findings are disucssed with Dr. Umaña on 11/01/[address] Ellis. Pathologist ICD10: 02 C79.9 Signed out by: Stevo Ellis MD, Pathologist NPI- [id number] Performed by: [place], [facility] ([facility]) Gross description: 28ML, YELLOW, CLEAR /LCS 02/19/1840 0000 Local FLAG LEGEND: L-Low Normal,H-High Normal,LL-Alert Low,HH-Alert High <-Panic Low,>-Panic High,A-Abnormal,AA-Critical Abnormal Performed at: [facility] [address] [place] [address] Chevy Ervin MD, [facility] [place] [id number] [id number] Carolina Morrissey MD, Specimen Comment: A duplicate report has been generated due to demographic updates. Performed at: [address] [facility], [place], [place] [id number] MD Chevy Ervin MD Phone: [phone]
[2018-11-01 15:00] VITALS: BP 118/44
--- NOTE | 2018-11-01 15:24 | RAD ---
CT HEAD WO/W CONTRAST History: Breast cancer Comparison: MRI brain exam January 30, 2017, no previous head CT available Technique: Noncontrast CT imaging was performed of the head. Exposure: One or more of the following individualized dose reduction techniques were utilized for this examination: 1. Automated exposure control 2. Adjustment of the mA and/or kV according to patient size 3. Use of iterative reconstruction technique. Findings: Patient's head is somewhat tilted in gantry during exam. There is also some motion degradation. No acute extra-axial or parenchymal hemorrhage is identified. There is no significant intra-axial mass effect, midline shift, or extra-axial fluid collection. The oleary-white differentiation of the major vascular territories is preserved. There is mild lateral ventriculomegaly probably due to involutional change. There is mild ill-defined low-density of the supratentorial parenchyma greatest near the frontal horns. There is no convincing nodular parenchymal or leptomeningeal enhancement. Some atherosclerotic calcification of the carotid siphons bilaterally. The mastoid air cells and the visualized paranasal sinuses are aerated. No acute calvarial abnormality is identified. There is asymmetric hyperdense enlargement of the right inferior rectus muscle, difficult to evaluate for underlying enhancement in this region given hyperdensity. Findings are new since the previous MRI brain exam. Remainder of the extraocular muscles do not appear significantly enlarged or hyperdense. Impression: 1. No convincing abnormal intracranial enhancement is identified. 2. There is mild supratentorial involutional change. Mild ill-defined low-density of the supratentorial parenchyma is nonspecific, more commonly due to chronic microvascular ischemic disease in a patient this age. 3. There is asymmetric hyperdense enlargement of the right inferior rectus muscle, difficult to assess for underlying enhancement given hyperdensity, considerations of underlying mass or hemorrhage. Electronically signed by: Harvinder Wiley MD (11/01/2018 3:21 PM) [id number]
--- NOTE | 2018-11-01 17:20 | RAD ---
AP portable chest radiograph 11/01/2018 Clinical History: Post thoracentesis. An AP erect portable digital radiograph of the chest was obtained. Comparison study is dated 10/29/2018. A right subclavian Abqbci-j-Yoie type catheter is unchanged in position. The cardiac silhouette is mildly enlarged. The thoracic aorta is tortuous. There are small to moderate-sized bilateral pleural effusions, right greater than left. No pneumothorax is seen. Increasing congestive changes are seen involving both lungs. The osseous structures are unchanged. Impression: 1. Small to moderate-sized bilateral pleural effusions, right greater than left. No pneumothorax is seen. 2. Increasing congestive changes. Electronically signed by: Herb Hinojosa MD (11/01/2018 5:17 PM) [facility]
[2018-11-01 19:00] VITALS: BP 114/42
[2018-11-01] MEDS: ATORVASTATIN CALCIUM 20 MG TABLET PO SCH (22:45)
[2018-11-01] MEDS: MIRTAZAPINE 7.5 MG TABLET. PO SCH (22:45)
[2018-11-01] MEDS: INSULIN GLARGINE SYRINGE. SQ SCH (22:50)
[2018-11-01 23:00] VITALS: BP 127/49
[2018-11-02 03:00] VITALS: BP 116/48
[2018-11-02 07:00] VITALS: BP 133/49
[2018-11-02] MEDS: ALBUTEROL SULFATE 2.5 MG/3 ML NEBU. NEB SCH ×4 (07:08→19:33)
[2018-11-02] MEDS: BUDESONIDE 0.5 MG/2 ML NEBU. NEB SCH ×2 (07:09→19:33)
[2018-11-02] MEDS: DRONABINOL 2.5 MG CAPSULE. PO SCH ×3 (07:35→16:38)
[2018-11-02] MEDS: HYDROcodone/APAP 5/325MG 1 TAB TABLET PO PRN (07:37)
[2018-11-02] MEDS: INSULIN LISPRO 300 UNITS/3 ML VIAL. SQ SCH ×3 (08:18→17:00)
[2018-11-02] MEDS: LABETALOL HCL 100 MG TABLET. PO SCH ×2 (08:22→21:00)
--- NOTE | 2018-11-02 08:49 | PDOC ---
PULMONARY PROGRESS NOTES Subjective resting in be on 2 liters N/C, denies any shortness of breath. Denies any cough. Vitals Vital Signs Date Time Temp Pulse Resp B/P (MAP) Pulse Ox O2 Delivery O2 Flow Rate FiO2 11/02/18 08:23 102 133/49 11/02/18 07:37 18 98 Nasal Cannula 2.0 11/02/18 07:00 98.1 98.1 ROS: No Chest Pain General: Alert Lungs: Other (decrease bases) Cardiovascular: S1, S2 Abdomen: Soft Labs Laboratory Tests Test 10/31/18 08:45 10/31/18 11:29 10/31/18 13:15 10/31/18 14:28 Body Fluid Total Protein 2.3 g/dL (.) Body Fluid Lactate Dehydrogenase 52 IU/L (.) Glucose (Fingerstick) 204 mg/dL (70-99) 223 mg/dL (70-99) White Blood Count 2.3 x10^3/uL (4.0-11.0) Red Blood Count 2.89 x10^6/uL (3.50-5.40) Hemoglobin 7.9 g/dL (12.0-15.5) Hematocrit 25.1 % (36.0-47.0) Mean Corpuscular Volume 87 fL (79-100) Mean Corpuscular Hemoglobin 27 pg (25-35) Mean Corpuscular Hemoglobin Concent 32 g/dL (31-37) Red Cell Distribution Width 22.2 % (11.5-14.5) Platelet Count 197 x10^3/uL (140-400) Neutrophils (%) (Auto) 73 % (31-73) Lymphocytes (%) (Auto) 12 % (24-48) Monocytes (%) (Auto) 13 % (0-9) Eosinophils (%) (Auto) 1 % (0-3) Basophils (%) (Auto) 0 % (0-3) Neutrophils # (Auto) 1.7 x10^3/uL (1.8-7.7) Lymphocytes # (Auto) 0.3 x10^3/uL (1.0-4.8) Monocytes # (Auto) 0.3 x10^3/uL (0.0-1.1) Eosinophils # (Auto) 0.0 x10^3/uL (0.0-0.7) Basophils # (Auto) 0.0 x10^3/uL (0.0-0.2) Sodium Level 147 mmol/L (136-145) Potassium Level 4.9 mmol/L (3.5-5.1) Chloride Level 113 mmol/L (98-107) Carbon Dioxide Level 32 mmol/L (21-32) Anion Gap 2 (6-14) Blood Urea Nitrogen 38 mg/dL (7-20) Creatinine 0.9 mg/dL (0.6-1.0) Estimated GFR (Cockcroft-Gault) 73.7 Glucose Level 247 mg/dL (70-99) Calcium Level 10.3 mg/dL (8.5-10.1) Test 10/31/18 16:46 10/31/18 20:01 11/01/18 07:34 11/01/18 16:21 Glucose (Fingerstick) 180 mg/dL (70-99) 169 mg/dL (70-99) 211 mg/dL (70-99) 183 mg/dL (70-99) Test 11/01/18 21:22 11/02/18 07:56 Glucose (Fingerstick) 235 mg/dL (70-99) 185 mg/dL (70-99) Laboratory Tests Test 11/01/18 16:21 11/01/18 21:22 11/02/18 07:56 Glucose (Fingerstick) 183 mg/dL (70-99) 235 mg/dL (70-99) 185 mg/dL (70-99) Medications Active Scripts Medications Dose Route/Sig Max Daily Dose Days Date Category Hydrocodone-Apap 5-325 (Hydrocodone Bit/Acetaminophen) 1 Tab Tablet 1 Tab PO PRN Q6HRS PRN 10/28/18 Rx Symbicort 160-4.5 Mcg Inhaler (Budesonide/Formoterol Fumarate) 10.2 Gm Hfa.aer.ad 2 Puff IH PRN BID PRN 10/25/18 Reported Marinol (Dronabinol) 5 Mg Capsule 5 Mg PO TID 10/25/18 Reported Bumetanide 1 Mg Tablet 0.5 Tab PO PRN 10/25/18 Reported Aldactone (Spironolactone) 25 Mg Tablet 25 Mg PO PRN DAILY 10/15/18 Reported Losartan Potassium 50 Mg Tablet 50 Mg PO DAILY 10/15/18 Reported Labetalol Hcl 200 Mg Tablet 200 Mg PO BID 10/15/18 Reported Cardizem Cd (Diltiazem Hcl) 240 Mg Cap.er.24h 240 Mg PO DAILY 10/15/18 Reported Mirtazapine 7.5 Mg Tablet 7.5 Mg PO QHS 30 06/21/18 Rx Proair Hfa (Albuterol Sulfate) 8.5 Gm Hfa.aer.ad 2.5 Mg NEB RTQID 30 06/21/18 Rx Atorvastatin Calcium 20 Mg Tablet 20 Mg PO DAILY 06/11/18 Reported Vitamin D3 (Cholecalciferol (Vitamin D3)) 2,000 Unit Tablet 2,000 Unit PO DAILY 03/01/17 Reported Impression . 1. Stage 4 metastatic breast cancer with bone metastases and malignant left- sided pleural effusion and malignant ascites. Dr. Millan has suggested to stop further chemotherapy and focus on comfort care. 2. Bilateral pleural effusions. She required thoracentesis collectively on 7 occasions. The left side has documented malignancy. Spoke with pathologist,right-sided fluid was never sent sent for cytology in the past. At this present moment, the right side is larger than the left side . s/p right thoracentesis 10/31 and confirmed malignancy . she would need a PleurX catheter on the right side in future. 3. Possible chronic obstructive pulmonary disease. 4. Leukopenia due to chemotherapy. 5. 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 Plan . 1. s/p right thoracentesis on 10/31/18, plan for PleurX catheter as OP if re- accumulates as pleural fluid is positive for malignancy 2. History of grade 1 diastolic dysfunction and also severe protein-calorie malnutrition, which is also contributing to re-accumulation of pleural effusions. 3. Agree with oncology recommendations to focus on comfort. However Family is not ready for hospice care. Family requesting PleurX cath. to be done in outpatient setting. 4. Discussed with RN d/w son in detail ok with dc to [facility] Almaguer MD Nov 02, 2018 08:49
[2018-11-02 11:00] VITALS: BP 82/31
[2018-11-02 15:00] VITALS: BP 116/36
[2018-11-02 19:00] VITALS: BP 104/38
[2018-11-02] MEDS: ATORVASTATIN CALCIUM 20 MG TABLET PO SCH (21:02)
[2018-11-02] MEDS: MIRTAZAPINE 7.5 MG TABLET. PO SCH (21:03)
[2018-11-02] MEDS: INSULIN GLARGINE SYRINGE. SQ SCH (21:09)
[2018-11-02 23:00] VITALS: BP 113/44
[2018-11-03 03:00] VITALS: BP 125/49
--- NOTE | 2018-11-03 03:50 | NUR ---
RN went to change pt needle and dressing in port-a-cath. Family at bedside stated they did not want the needle changed without something to numb it like in the ED. RN did not change dressing since she was not able to change the needle underneath. Will pass in report to see if they could get lidocaine for needle injection. Will continue to monitor.
[2018-11-03 07:00] VITALS: BP 114/42
[2018-11-03] MEDS: BUDESONIDE 0.5 MG/2 ML NEBU. NEB SCH ×2 (07:36→20:28)
[2018-11-03] MEDS: ALBUTEROL SULFATE 2.5 MG/3 ML NEBU. NEB SCH ×4 (07:36→20:28)
[2018-11-03] MEDS: INSULIN LISPRO 300 UNITS/3 ML VIAL. SQ SCH ×3 (07:59→17:06)
[2018-11-03] MEDS: LABETALOL HCL 100 MG TABLET. PO SCH ×2 (08:04→21:30)
[2018-11-03] MEDS: DRONABINOL 2.5 MG CAPSULE. PO SCH ×3 (08:05→16:36)
--- NOTE | 2018-11-03 08:23 | PDOC ---
PULMONARY PROGRESS NOTES Subjective Resting in bed on room air this am. Family at bedside. Denies any shortness of breath or cough. Vitals Vital Signs Date Time Temp Pulse Resp B/P (MAP) Pulse Ox O2 Delivery O2 Flow Rate FiO2 11/03/18 08:04 106 114/42 11/03/18 07:36 99 Nasal Cannula 2.0 11/03/18 07:00 98.1 16 98.1 ROS: No Chest Pain, No Increase Cough General: Alert, Oriented X4 Lungs: Clear (BUL), Other (decrease bases) Cardiovascular: S1, S2 Abdomen: Soft, Non-tender Neuro Exam: Alert, Oriented Extremities: No Edema Skin: Warm, Dry Labs Laboratory Tests Test 11/01/18 11:10 11/01/18 16:21 11/01/18 21:22 11/02/18 07:56 Glucose (Fingerstick) 269 mg/dL (70-99) 183 mg/dL (70-99) 235 mg/dL (70-99) 185 mg/dL (70-99) Test 11/02/18 11:45 11/02/18 16:45 11/02/18 20:44 11/03/18 07:36 Glucose (Fingerstick) 160 mg/dL (70-99) 176 mg/dL (70-99) 151 mg/dL (70-99) 104 mg/dL (70-99) Laboratory Tests Test 11/02/18 11:45 11/02/18 16:45 11/02/18 20:44 11/03/18 07:36 Glucose (Fingerstick) 160 mg/dL (70-99) 176 mg/dL (70-99) 151 mg/dL (70-99) 104 mg/dL (70-99) Medications Active Scripts Medications Dose Route/Sig Max Daily Dose Days Date Category Hydrocodone-Apap 5-325 (Hydrocodone Bit/Acetaminophen) 1 Tab Tablet 1 Tab PO PRN Q6HRS PRN 10/28/18 Rx Symbicort 160-4.5 Mcg Inhaler (Budesonide/Formoterol Fumarate) 10.2 Gm Hfa.aer.ad 2 Puff IH PRN BID PRN 10/25/18 Reported Marinol (Dronabinol) 5 Mg Capsule 5 Mg PO TID 10/25/18 Reported Bumetanide 1 Mg Tablet 0.5 Tab PO PRN 10/25/18 Reported Aldactone (Spironolactone) 25 Mg Tablet 25 Mg PO PRN DAILY 10/15/18 Reported Losartan Potassium 50 Mg Tablet 50 Mg PO DAILY 10/15/18 Reported Labetalol Hcl 200 Mg Tablet 200 Mg PO BID 10/15/18 Reported Cardizem Cd (Diltiazem Hcl) 240 Mg Cap.er.24h 240 Mg PO DAILY 10/15/18 Reported Mirtazapine 7.5 Mg Tablet 7.5 Mg PO QHS 30 06/21/18 Rx Proair Hfa (Albuterol Sulfate) 8.5 Gm Hfa.aer.ad 2.5 Mg NEB RTQID 30 06/21/18 Rx Atorvastatin Calcium 20 Mg Tablet 20 Mg PO DAILY 06/11/18 Reported Vitamin D3 (Cholecalciferol (Vitamin D3)) 2,000 Unit Tablet 2,000 Unit PO DAILY 03/01/17 Reported Impression . 1. Stage 4 metastatic breast Cancer mets to bone and pleural fluid. Follow with Dr. Millan, Oncology suggested to stop further chemotherapy and focus on comfort care.-ongoing 2. Bilateral pleural effusions S/P multiple thoracentesis most recent on 10/31 pathology from left has documented malignancy. pathology from right side pleural fluid also demonstrated Malignant cells are present in this pleural fluid compatible with a carcinoma.-stable 3. Plan to place PleurX cath in outpatient setting 4. Possible chronic obstructive pulmonary disease.---stable 5. Leukopenia due to chemotherapy. 6. 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 7. General Debility Plan . 1. s/p right thoracentesis on 10/31/18, plan for PleurX catheter as OP if re- accumulates as pleural fluid is positive for malignancy in both pleural effusions 2. History of grade 1 diastolic dysfunction and also severe protein-calorie malnutrition, which is also contributing to re-accumulation of pleural effusions. 3. Agree with oncology recommendations to focus on comfort. However Family is not ready for hospice care. Family requesting PleurX cath. to be done in outpatient setting. 4.bronchodilators PRN and supplemental oxygen as needed. 4. Discussed with RN, ALIRIO to D/C to [facility] VEGA MD Nov 03, 2018 08:23
--- NOTE | 2018-11-03 10:00 | NUR ---
Spoke with pt's dater in law Judi regarding hueber needle change,and she stated it causes pt pain to change the needle. Informed her that on discharge needle will be removed and pt possible discharge tomorrow. She stated we could remove needle and replace only if needed. Informed her I would rather leave needle incase iv site needed emergently. She stated she would talk to about this today.
[2018-11-03 11:00] VITALS: BP 114/44
--- NOTE | 2018-11-03 12:39 | PDOC ---
[employer] PROGRESS NOTE Chief Complaint Chief Complaint hypercalcemia, with constipation hypernatremia hyperchloremia hypogycemia on insulin metastatic breast cancer st 4 - pt/family CONSIDER hospice - weakness and debility Anemia due to malignancy and chemotherapy - Leukopenia - due to chemotherapy. Pleural effusion, malignant - Chest x-ray on 10/24/2018 revealed stable pleural effusions Moderate bilateral layering pleural effusions with adjacent opacities,right greater than left, similar compared to prior allowing for differences in technique.10/29 Stage I decubitus ulcer History of Present Illness History of Present Illness 11/03/18 Pt seen and examined at bedside Pt in chair resting comfortably upon entry Multiple family members present today DW RN/DW Family Vitals/I&O Vitals/I&O: Vital Signs Date Time Temp Pulse Resp B/P (MAP) Pulse Ox O2 Delivery O2 Flow Rate FiO2 11/03/18 11:00 98.3 112 18 114/44 (67) 96 Nasal Cannula 2.0 98.3 I & O 11/02/18 11/02/18 11/03/18 15:00 23:00 07:00 Intake Total 240 ml Balance 240 ml Physical Exam General: Alert, Oriented X3, Cooperative, No acute distress, Other (drowsy, fatigued ) Heart: Regular rate, Normal S1 Lungs: Clear (BUL), Other (decrease bases) Abdomen: Normal bowel sounds, No tenderness, No hepatosplenomegaly Extremities: No clubbing, No cyanosis, No edema, Other (trace bilateral LE edema ) Skin: No rashes, No significant lesion Labs Labs: Laboratory Tests Test 11/02/18 16:45 11/02/18 20:44 11/03/18 07:36 11/03/18 11:24 Glucose (Fingerstick) 176 mg/dL (70-99) 151 mg/dL (70-99) 104 mg/dL (70-99) 228 mg/dL (70-99) Review of Systems Review of Systems: Denies BRADLEY Denies vision change Assessment and Plan Assessmemt and Plan Problems Medical Problems: (1) Hypercalcemia Status: Acute (2) Hypernatremia Status: Acute (3) Metastatic breast cancer Status: Chronic Assessment hypercalcemia, with constipation hypernatremia hyperchloremia hypogycemia on insulin metastatic breast cancer st 4 - pt/family CONSIDER hospice - weakness and debility Anemia due to malignancy and chemotherapy - Leukopenia - due to chemotherapy. Pleural effusion, malignant - Chest x-ray on 10/24/2018 revealed stable pleural effusions Moderate bilateral layering pleural effusions with adjacent opacities,right greater than left, similar compared to prior allowing for differences in technique.10/29 Stage I decubitus ulcer Plan Appreciate hospice input Discussed condition with family members extensively DVT prophylaxis home meds PT/OT ONCOLOGY HAS recommended to stop further chemotherapy and focus on supportive care with the help of hospice. family wants to consider thoracentesis,for palliation of symptoms, DR VEGA FOLLOWING D/C with Hospice Sunday Comment Review of Relevant I have reviewed the following items patrica (where applicable) has been applied. VIVI LUNDBERG III DO Nov 03, 2018 12:38
[2018-11-03 15:00] VITALS: BP 109/35
[2018-11-03 19:00] VITALS: BP 124/49
[2018-11-03] MEDS: ATORVASTATIN CALCIUM 20 MG TABLET PO SCH (21:29)
[2018-11-03] MEDS: MIRTAZAPINE 7.5 MG TABLET. PO SCH (21:30)
[2018-11-03] MEDS: INSULIN GLARGINE SYRINGE. SQ SCH (21:36)
[2018-11-03 23:00] VITALS: BP 102/46
[2018-11-04 03:00] VITALS: BP 112/48
[2018-11-04 07:00] VITALS: BP 119/47
[2018-11-04] MEDS: ALBUTEROL SULFATE 2.5 MG/3 ML NEBU. NEB SCH ×4 (07:20→19:50)
[2018-11-04] MEDS: BUDESONIDE 0.5 MG/2 ML NEBU. NEB SCH ×2 (07:21→19:50)
[2018-11-04] MEDS: INSULIN LISPRO 300 UNITS/3 ML VIAL. SQ SCH ×3 (08:00→17:35)
--- NOTE | 2018-11-04 08:24 | PDOC ---
PROGRESS NOTES Chief Complaint Chief Complaint hypercalcemia, with constipation hypernatremia hyperchloremia hypogycemia on insulin metastatic breast cancer st 4 - pt/family CONSIDER hospice - weakness and debility Anemia due to malignancy and chemotherapy - Leukopenia - due to chemotherapy. Pleural effusion, malignant - Chest x-ray on 10/24/2018 revealed stable pleural effusions Moderate bilateral layering pleural effusions with adjacent opacities,right greater than left, similar compared to prior allowing for differences in technique.10/29 Stage I decubitus ulcer 27 minutes spent with patient and family today for hospice discharge planning for 11/05/18 History of Present Illness History of Present Illness 11/03/18 Pt seen and examined at bedside Pt in chair resting comfortably upon entry Multiple family members present today DW RN/DW Family Plan Appreciate hospice input Discussed condition with family members extensively DVT prophylaxis home meds PT/OT ONCOLOGY HAS recommended to stop further chemotherapy and focus on supportive care with the help of hospice. family wants to consider thoracentesis,for palliation of symptoms, DR VEGA FOLLOWING D/C with Hospice Sunday Vitals Vitals Vital Signs Date Time Temp Pulse Resp B/P (MAP) Pulse Ox O2 Delivery O2 Flow Rate FiO2 11/04/18 07:21 99 Nasal Cannula 2.0 11/04/18 07:00 97.7 98 18 119/47 (71) 97.7 Physical Exam General: Alert, Oriented X3, Cooperative, No acute distress, Other Heart: Regular rate, Normal S1 Lungs: Clear (BUL), Other (decrease bases) Abdomen: Normal bowel sounds, No tenderness, No hepatosplenomegaly Extremities: No clubbing, No cyanosis, No edema, Other Skin: No rashes, No significant lesion Labs LABS Laboratory Tests Test 11/03/18 11:24 11/03/18 16:43 11/03/18 20:44 11/04/18 07:53 Glucose (Fingerstick) 228 mg/dL (70-99) 204 mg/dL (70-99) 193 mg/dL (70-99) 142 mg/dL (70-99) Assessment and Plan Assessmemt and Plan Problems Medical Problems: (1) Hypercalcemia Status: Acute (2) Hypernatremia Status: Acute (3) Metastatic breast cancer Status: Chronic Comment Review of Relevant I have reviewed the following items patrica (where applicable) has been applied. Labs Laboratory Tests Test 11/02/18 11:45 11/02/18 16:45 11/02/18 20:44 11/03/18 07:36 Glucose (Fingerstick) 160 mg/dL (70-99) 176 mg/dL (70-99) 151 mg/dL (70-99) 104 mg/dL (70-99) Test 11/03/18 11:24 11/03/18 16:43 11/03/18 20:44 11/04/18 07:53 Glucose (Fingerstick) 228 mg/dL (70-99) 204 mg/dL (70-99) 193 mg/dL (70-99) 142 mg/dL (70-99) Laboratory Tests Test 11/03/18 11:24 11/03/18 16:43 11/03/18 20:44 11/04/18 07:53 Glucose (Fingerstick) 228 mg/dL (70-99) 204 mg/dL (70-99) 193 mg/dL (70-99) 142 mg/dL (70-99) Microbiology 10/31/18 Anaerobic/Aerobic Culture, Resulted Pending 10/31/18 Anaerobic Culture Result 1 (KEISHA), Resulted Pending 10/31/18 Aerobic Culture - Final, Resulted 10/31/18 Aerobic Culture Result 1 (KEISHA) - Final, Resulted 10/31/18 Gram Stain - Final, Resulted 10/31/18 Gram Stain Result 1 (KEISHA) - Final, Resulted 10/31/18 Gram Stain Result 2 (KEISHA) - Final, Resulted Medications Current Medications Lidocaine/ Epinephrine (Let Topical) 3 ml STK-MED ONCE TP ; Start 10/25/18 at 12:24; Stop 10/25/18 at 12:24; Status DC Lidocaine/ Epinephrine (Let Topical) 3 ml 1X ONCE TP Last administered on 10/25/18at 12:38; Start 10/25/18 at 12:30; Stop 10/25/18 at 12:34; Status DC Acetaminophen/ Hydrocodone Bitart (Lortab 5/325) 1 tab 1X ONCE PO Last administered on 10/25/18at 12:49; Start 10/25/18 at 13:15; Stop 10/25/18 at 13:16; Status DC Ondansetron HCl (Zofran) 4 mg PRN Q8HRS PRN IV NAUSEA/VOMITING; Start 10/25/18 at 13:45; Stop 10/26/18 at 13:44; Status DC Morphine Sulfate (Morphine Sulfate) 4 mg PRN Q2HR PRN IV PAIN; Start 10/25/18 at 13:45; Stop 10/26/18 at 13:44; Status DC Acetaminophen (Tylenol) 650 mg PRN Q4HRS PRN PO FEVER Last administered on 10/26/18 11:34; Start 10/25/18 at 13:45; Stop 10/26/18 at 13:44; Status DC Sodium Chloride 1,000 ml @ 125 mls/hr 1X ONCE IV Last administered on 10/25/18at 13:52; Start 10/25/18 at 13:45; Stop 10/25/18 at 21:44; Status DC Lidocaine/ Epinephrine (Let Topical) 3 ml 1X ONCE TP Last administered on 10/25/18at 15:58; Start 10/25/18 at 16:00; Stop 10/25/18 at 16:01; Status DC Albuterol Sulfate (Ventolin Neb Soln) 2.5 mg RTQID NEB Last administered on 11/04/18at 07:21; Start 10/25/18 at 20:00 Atorvastatin Calcium (Lipitor) 20 mg QHS PO Last administered on 11/03/18 21:36; Start 10/25/18 at 21:00 Bumetanide (Bumex) 0.5 mg PRN DAILY PRN PO EDEMA 1st choice Last administered on 11/02/18 08:23; Start 10/25/18 at 17:15 Diltiazem HCl (Cardizem 24hr Cd) 240 mg DAILY PO Last administered on 10/31/18at 10:38; Start 10/25/18 at 17:30; Stop 10/31/18 at 13:16; Status DC Acetaminophen/ Hydrocodone Bitart (Lortab 5/325) 1 tab PRN Q6HRS PRN PO SEVERE PAIN Last administered on 11/02/18 07:37; Start 10/25/18 at 17:15 Labetalol HCl (Trandate) 200 mg BID PO Last administered on 10/31/18at 10:38; Start 10/25/18 at 21:00; Stop 10/31/18 at 16:02; Status DC Losartan Potassium (Cozaar) 50 mg DAILY PO Last administered on 10/31/18at 10:38; Start 10/25/18 at 17:30; Stop 10/31/18 at 13:16; Status DC Spironolactone (Aldactone) 25 mg PRN DAILY PRN PO EDEMA 2nd choice; Start 10/25/18 at 17:15 Budesonide (Pulmicort) 0.5 mg RTBID NEB Last administered on 11/04/18at 07:21; Start 10/25/18 at 20:00 Vitamin D (Vitamin D3) 2,000 unit DAILY PO Last administered on 10/27/18 09:42; Start 10/26/18 at 09:00; Stop 10/28/18 at 08:57; Status DC Dronabinol (Marinol) 5 mg TIDAC PO Last administered on 11/03/18at 16:37; Start 10/25/18 at 17:30 Insulin Glargine (Lantus Syringe) 25 unit QHS SQ Last administered on 10/27/18at 20:33; Start 10/25/18 at 21:00; Stop 10/28/18 at 14:03; Status DC Insulin Human Lispro (HumaLOG) 15 units TIDWMEALS SQ Last administered on 10/27/18at 09:42; Start 10/25/18 at 18:00; Stop 10/28/18 at 14:03; Status DC Insulin Human Lispro (HumaLOG) 0-7 UNITS TIDWMEALS SQ Last administered on 10/25/18at 18:23; Start 10/25/18 at 17:30; Stop 10/28/18 at 14:03; Status DC Dextrose (Dextrose 50%-Water Syringe) 12.5 gm PRN Q15MIN PRN IV SEE COMMENTS Last administered on 10/28/18at 07:45; Start 10/25/18 at 17:15; Stop 10/28/18 at 15:16; Status DC Dextrose 250 ml PRN Q15MIN PRN IV SEE COMMENTS; Start 10/25/18 at 17:15; Status Cancel Polyethylene Glycol (miraLAX PACKET) 17 gm PRN DAILY PRN PO CONSTIPATION 1ST C HOICE; Start 10/25/18 at 17:30 Sodium Chloride 1,000 ml @ 100 mls/hr Q10H IV Last administered on 10/25/18at 23:25; Start 10/25/18 at 17:30; Stop 10/26/18 at 12:31; Status DC Polyethylene Glycol (miraLAX PACKET) 17 gm DAILY PO Last administered on 10/31/18at 10:38; Start 10/26/18 at 09:00; Stop 11/01/18 at 14:13; Status DC Docusate Sodium (Colace) 100 mg DAILY PO Last administered on 10/31/18at 10:38; Start 10/26/18 at 09:00; Stop 11/01/18 at 14:13; Status DC Docusate Sodium (Colace) 100 mg PRN DAILY PRN PO STOOL SOFTENER; Start 10/25/18 at 18:15 Magnesium Hydroxide (Milk Of Magnesia) 2,400 mg PRN DAILY PRN PO CONSTIPATION 2ND CHOICE; Start 10/25/18 at 20:15 Psyllium Hydrophilic Mucilloid (Metamucil Fiber Packet) 1 pkt DAILY PO Last administered on 10/31/18at 10:38; Start 10/26/18 at 13:45; Stop 11/01/18 at 14:13; Status DC Mirtazapine (Remeron) 7.5 mg QHS PO Last administered on 11/03/18at 21:36; Start 10/26/18 at 21:00 Pamidronate Disodium 60 mg/ Sodium Chloride 250 ml @ 83.333 mls/ hr 1X ONCE IV Last administered on 10/26/18at 14:45; Start 10/26/18 at 14:00; Stop 10/26/18 at 16:59; Status DC Sodium Chloride 500 ml @ 0 mls/hr 1X ONCE IV Last administered on 10/27/18at 12:05; Start 10/27/18 at 10:15; Stop 10/27/18 at 10:17; Status DC Dextrose/Sodium Chloride 1,000 ml @ 75 mls/hr [id number] IV Last administered on 10/29/18at 08:43; Start 10/27/18 at 17:30; Stop 10/29/18 at 16:12; Status DC Ondansetron HCl (Zofran) 4 mg PRN Q6HRS PRN IV NAUSEA/VOMITING; Start 10/28/18 at 12:15 Acetaminophen (Tylenol) 500 mg PRN Q6HRS PRN PO MILD PAIN / TEMP; Start 10/28/18 at 12:15 Acetaminophen/ Codeine Phosphate (Tylenol #3) 1 tab PRN Q6HRS PRN PO MODERATE PAIN Last administered on 11/03/18at 01:33; Start 10/28/18 at 12:15 Temazepam (Restoril) 7.5 mg PRN QHS PRN PO INSOMNIA; Start 10/28/18 at 12:15 Magnesium Hydroxide (Milk Of Magnesia) 2,400 mg 1X ONCE PO Last administered on 10/28/18at 14:54; Start 10/28/18 at 14:00; Stop 10/28/18 at 14:03; Status DC Insulin Human Lispro (HumaLOG) 0-9 UNITS TIDWMEALS SQ Last administered on 11/03/18at 17:07; Start 10/28/18 at 17:00 Dextrose (Dextrose 50%-Water Syringe) 12.5 gm PRN Q15MIN PRN IV SEE COMMENTS; Start 10/28/18 at 14:15 Dextrose 250 ml PRN Q15MIN PRN IV SEE COMMENTS; Start 10/28/18 at 14:15 Insulin Glargine (Lantus Syringe) 10 unit QHS SQ Last administered on 10/30/18at 21:58; Start 10/29/18 at 21:00; Stop 10/31/18 at 13:16; Status DC Sodium Chloride 500 ml @ 500 mls/hr 1X ONCE IV ; Start 10/29/18 at 17:30; Stop 10/29/18 at 18:19; Status DC Diltiazem HCl (Cardizem 24hr Cd) 180 mg DAILY PO Last administered on 11/02/18at 08:23; Start 10/31/18 at 13:15 Insulin Glargine (Lantus Syringe) 12 unit QHS SQ ; Start 10/31/18 at 13:15; Stop 10/31/18 at 16:19; Status DC Losartan Potassium (Cozaar) 25 mg DAILY PO ; Start 10/31/18 at 13:15; Stop 10/31/18 at 16:02; Status DC Labetalol HCl (Trandate) 100 mg BID PO Last administered on 11/03/18at 21:36; Start 10/31/18 at 21:00 Insulin Glargine (Lantus Syringe) 12 unit QHS SQ Last administered on 11/03/18at 21:36; Start 10/31/18 at 21:00 Iohexol (Omnipaque 300 Mg/ml) 70 ml 1X ONCE IV Last administered on 11/01/18at 12:22; Start 11/01/18 at 12:00; Stop 11/01/18 at 12:01; Status DC Info (CONTRAST GIVEN -- Rx MONITORING) 1 each PRN DAILY PRN MC SEE COMMENTS; Start 11/01/18 at 12:00; Stop 11/03/18 at 11:59; Status DC Active Scripts Active Hydrocodone-Apap 5-325 (Hydrocodone Bit/Acetaminophen) 1 Tab Tablet 1 Tab PO PRN Q6HRS PRN Mirtazapine 7.5 Mg Tablet 7.5 Mg PO QHS 30 Days Proair Hfa (Albuterol Sulfate) 8.5 Gm Hfa.aer.ad 2.5 Mg NEB RTQID 30 Days Reported Symbicort 160-4.5 Mcg Inhaler (Budesonide/Formoterol Fumarate) 10.2 Gm Hfa.aer.ad 2 Puff IH PRN BID PRN Marinol (Dronabinol) 5 Mg Capsule 5 Mg PO TID Bumetanide 1 Mg Tablet 0.5 Tab PO PRN Aldactone (Spironolactone) 25 Mg Tablet 25 Mg PO PRN DAILY Losartan Potassium 50 Mg Tablet 50 Mg PO DAILY Labetalol Hcl 200 Mg Tablet 200 Mg PO BID Cardizem Cd (Diltiazem Hcl) 240 Mg Cap.er.24h 240 Mg PO DAILY Atorvastatin Calcium 20 Mg Tablet 20 Mg PO DAILY Vitamin D3 (Cholecalciferol (Vitamin D3)) 2,000 Unit Tablet 2,000 Unit PO DAILY Vitals/I & O Vital Sign - Last 24 Hours 11/03/18 11/03/18 11/03/18 11/03/18 11:00 15:00 15:36 19:00 Temp 98.3 98.4 98.3 98.3 98.4 98.3 Pulse 112 114 117 Resp 18 18 18 B/P (MAP) 114/44 (67) 109/35 (59) 124/49 (74) Pulse Ox 96 97 98 97 O2 Delivery Nasal Cannula Nasal Cannula Nasal Cannula Nasal Cannula O2 Flow Rate 2.0 2.0 2.0 2.0 11/03/18 11/03/18 11/03/18 11/03/18 20:00 20:19 21:36 23:00 Temp 98.9 98.9 Pulse 117 101 Resp 18 B/P (MAP) 124/49 102/46 (64) Pulse Ox 100 96 O2 Delivery Nasal Cannula Nasal Cannula Nasal Cannula O2 Flow Rate 2.0 2.0 2.0 11/04/18 11/04/18 11/04/18 03:00 07:00 07:21 Temp 97.8 97.7 97.8 97.7 Pulse 101 98 Resp 18 18 B/P (MAP) 112/48 (69) 119/47 (71) Pulse Ox 99 99 99 O2 Delivery Nasal Cannula Nasal Cannula Nasal Cannula O2 Flow Rate 2.0 2.0 2.0 Intake and Output 11/03/18 11/03/18 11/04/18 15:00 23:00 07:00 Intake Total 120 ml Balance 120 ml KAITLIN BAH MD Nov 04, 2018 08:24
[2018-11-04] MEDS: DRONABINOL 2.5 MG CAPSULE. PO SCH ×3 (08:46→16:30)
[2018-11-04] MEDS: LABETALOL HCL 100 MG TABLET. PO SCH ×2 (09:00→21:33)
--- NOTE | 2018-11-04 09:49 | NUR ---
SW following pt. Spoke with pt's son and he had made arrangements to interview hospice @1200, [facility] @1300. Per pt's son request, SW phoned and faxed referral to mentioned hospice agencies. Will continue to follow. D/w RN.
[2018-11-04 10:43] LABS: CALCIUM 10.9 mg/dL (8.5-10.1); CREATININE 0.9 mg/dL (0.6-1.0); GFR 73.7; POTASSIUM 4.9 mmol/L (3.5-5.1)
--- NOTE | 2018-11-04 10:59 | PDOC ---
PROGRESS NOTES Subjective Subjective HPI -f/u of Stage 4 metastatic breast cancer with bone metastasis and pleural effusion and ascites. ROS - no CP Objective Objective Vital Signs Date Time Temp Pulse Resp B/P (MAP) Pulse Ox O2 Delivery O2 Flow Rate FiO2 11/04/18 10:00 98 119/47 11/04/18 07:21 99 Nasal Cannula 2.0 11/04/18 07:00 97.7 18 97.7 Intake and Output 11/04/18 06:59 Intake Total 120 ml Balance 120 ml Intake Oral 120 ml # Voids 2 Physical Exam Heart: Normal S1, Normal S2 General: Alert, Oriented X3, No acute distress Lungs: Clear to auscultation Neuro: Normal speech Psych/Mental Status: Mental status NL Assessment Assessment Problems Medical Problems: (1) Hypercalcemia Status: Acute (2) Hypernatremia Status: Acute (3) Metastatic breast cancer Status: Chronic IMPRESSION AND PLAN: 1. Stage 4 metastatic breast cancer with bone metastasis and pleural effusion and ascites. She was started on Abraxane due to disease progression with prior therapy. She has been on Abraxane since 06/21/2018. However, she developed worsening pleural effusion requiring thoracentesis on 10/11/2018 indicating progressive disease. She has now developed hypercalcemia. This is another sign of disease progression. Her performance status is poor. She spends most of her time sitting or lying at home. ECOG performance status is 3. Considering progressive disease despite chemotherapy and declining functional status, I have recommended to stop further chemotherapy and focus on comfort care and supportive care with the help of hospice. The patient understands and all her questions were answered. Her son Nikhil was also present during my discussion, who expressed that they would like to think about it and will decide in the next few days. Spoke with pt's son and he had made arrangements to interview [facility] @1200, [facility] @1300. I D/w Pat. 2. 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 I agree with IV hydration. s/p aredia 10/26/18 Ca now 10.9. 3. 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 Hb 7.9 4. Leukopenia due to chemotherapy. 5. Pleural effusion, malignant Clinically). Chest x-ray on 10/24/2018 revealed stable pleural effusions. s/p rt thoracentesis 1.1L on 10/31/18. 6. Malignant ascites (positive cytology 06/14/18). Comment Review of Relevant I have reviewed the following items patrica (where applicable) has been applied. Labs Laboratory Tests Test 11/02/18 11:45 11/02/18 16:45 11/02/18 20:44 11/03/18 07:36 Glucose (Fingerstick) 160 mg/dL (70-99) 176 mg/dL (70-99) 151 mg/dL (70-99) 104 mg/dL (70-99) Test 11/03/18 11:24 11/03/18 16:43 11/03/18 20:44 11/04/18 07:53 Glucose (Fingerstick) 228 mg/dL (70-99) 204 mg/dL (70-99) 193 mg/dL (70-99) 142 mg/dL (70-99) Test 11/04/18 10:19 Sodium Level 147 mmol/L (136-145) Potassium Level 4.9 mmol/L (3.5-5.1) Chloride Level 111 mmol/L (98-107) Carbon Dioxide Level 32 mmol/L (21-32) Anion Gap 4 (6-14) Blood Urea Nitrogen 50 mg/dL (7-20) Creatinine 0.9 mg/dL (0.6-1.0) Estimated GFR (Cockcroft-Gault) 73.7 Glucose Level 169 mg/dL (70-99) Calcium Level 10.9 mg/dL (8.5-10.1) Laboratory Tests Test 11/03/18 11:24 11/03/18 16:43 11/03/18 20:44 11/04/18 07:53 Glucose (Fingerstick) 228 mg/dL (70-99) 204 mg/dL (70-99) 193 mg/dL (70-99) 142 mg/dL (70-99) Test 11/04/18 10:19 Sodium Level 147 mmol/L (136-145) Potassium Level 4.9 mmol/L (3.5-5.1) Chloride Level 111 mmol/L (98-107) Carbon Dioxide Level 32 mmol/L (21-32) Anion Gap 4 (6-14) Blood Urea Nitrogen 50 mg/dL (7-20) Creatinine 0.9 mg/dL (0.6-1.0) Estimated GFR (Cockcroft-Gault) 73.7 Glucose Level 169 mg/dL (70-99) Calcium Level 10.9 mg/dL (8.5-10.1) Microbiology 10/31/18 Anaerobic/Aerobic Culture, Resulted Pending 10/31/18 Anaerobic Culture Result 1 (KEISHA), Resulted Pending 10/31/18 Aerobic Culture - Final, Resulted 10/31/18 Aerobic Culture Result 1 (KEISHA) - Final, Resulted 10/31/18 Gram Stain - Final, Resulted 10/31/18 Gram Stain Result 1 (KEISHA) - Final, Resulted 10/31/18 Gram Stain Result 2 (KEISHA) - Final, Resulted Medications Current Medications Lidocaine/ Epinephrine (Let Topical) 3 ml STK-MED ONCE TP ; Start 10/25/18 at 12:24; Stop 10/25/18 at 12:24; Status DC Lidocaine/ Epinephrine (Let Topical) 3 ml 1X ONCE TP Last administered on 10/25/18at 12:38; Start 10/25/18 at 12:30; Stop 10/25/18 at 12:34; Status DC Acetaminophen/ Hydrocodone Bitart (Lortab 5/325) 1 tab 1X ONCE PO Last administered on 10/25/18at 12:49; Start 10/25/18 at 13:15; Stop 10/25/18 at 13:16; Status DC Ondansetron HCl (Zofran) 4 mg PRN Q8HRS PRN IV NAUSEA/VOMITING; Start 10/25/18 at 13:45; Stop 10/26/18 at 13:44; Status DC Morphine Sulfate (Morphine Sulfate) 4 mg PRN Q2HR PRN IV PAIN; Start 10/25/18 at 13:45; Stop 10/26/18 at 13:44; Status DC Acetaminophen (Tylenol) 650 mg PRN Q4HRS PRN PO FEVER Last administered on 10/26/18at 11:34; Start 10/25/18 at 13:45; Stop 10/26/18 at 13:44; Status DC Sodium Chloride 1,000 ml @ 125 mls/hr 1X ONCE IV Last administered on 10/25/18at 13:52; Start 10/25/18 at 13:45; Stop 10/25/18 at 21:44; Status DC Lidocaine/ Epinephrine (Let Topical) 3 ml 1X ONCE TP Last administered on 9/6/19at 15:58; Start 10/25/18 at 16:00; Stop 10/25/18 at 16:01; Status DC Albuterol Sulfate (Ventolin Neb Soln) 2.5 mg RTQID NEB Last administered on 11/04/18 07:21; Start 10/25/18 at 20:00 Atorvastatin Calcium (Lipitor) 20 mg QHS PO Last administered on 11/03/18 21:36; Start 10/25/18 at 21:00 Bumetanide (Bumex) 0.5 mg PRN DAILY PRN PO EDEMA 1st choice Last administered on 11/02/18 08:23; Start 10/25/18 at 17:15 Diltiazem HCl (Cardizem 24hr Cd) 240 mg DAILY PO Last administered on 10/31/18 10:38; Start 10/25/18 at 17:30; Stop 10/31/18 at 13:16; Status DC Acetaminophen/ Hydrocodone Bitart (Lortab 5/325) 1 tab PRN Q6HRS PRN PO SEVERE PAIN Last administered on 11/02/18at 07:37; Start 10/25/18 at 17:15 Labetalol HCl (Trandate) 200 mg BID PO Last administered on 10/31/18 10:38; Start 10/25/18 at 21:00; Stop 10/31/18 at 16:02; Status DC Losartan Potassium (Cozaar) 50 mg DAILY PO Last administered on 10/31/18 10:38; Start 10/25/18 at 17:30; Stop 10/31/18 at 13:16; Status DC Spironolactone (Aldactone) 25 mg PRN DAILY PRN PO EDEMA 2nd choice; Start 10/25/18 at 17:15 Budesonide (Pulmicort) 0.5 mg RTBID NEB Last administered on 11/04/18 07:21; Start 10/25/18 at 20:00 Vitamin D (Vitamin D3) 2,000 unit DAILY PO Last administered on 10/27/18 09:42; Start 10/26/18 at 09:00; Stop 10/28/18 at 08:57; Status DC Dronabinol (Marinol) 5 mg TIDAC PO Last administered on 9/16/19at 08:46; Start 10/25/18 at 17:30 Insulin Glargine (Lantus Syringe) 25 unit QHS SQ Last administered on 10/27/18at 20:33; Start 10/25/18 at 21:00; Stop 10/28/18 at 14:03; Status DC Insulin Human Lispro (HumaLOG) 15 units TIDWMEALS SQ Last administered on 10/27/18at 09:42; Start 10/25/18 at 18:00; Stop 10/28/18 at 14:03; Status DC Insulin Human Lispro (HumaLOG) 0-7 UNITS TIDWMEALS SQ Last administered on 10/25/18at 18:23; Start 10/25/18 at 17:30; Stop 10/28/18 at 14:03; Status DC Dextrose (Dextrose 50%-Water Syringe) 12.5 gm PRN Q15MIN PRN IV SEE COMMENTS Last administered on 10/28/18at 07:45; Start 10/25/18 at 17:15; Stop 10/28/18 at 15:16; Status DC Dextrose 250 ml PRN Q15MIN PRN IV SEE COMMENTS; Start 10/25/18 at 17:15; Status Cancel Polyethylene Glycol (miraLAX PACKET) 17 gm PRN DAILY PRN PO CONSTIPATION 1ST CHOICE; Start 10/25/18 at 17:30 Sodium Chloride 1,000 ml @ 100 mls/hr Q10H IV Last administered on 10/25/18at 23:25; Start 10/25/18 at 17:30; Stop 10/26/18 at 12:31; Status DC Polyethylene Glycol (miraLAX PACKET) 17 gm DAILY PO Last administered on 10/31/18at 10:38; Start 10/26/18 at 09:00; Stop 11/01/18 at 14:13; Status DC Docusate Sodium (Colace) 100 mg DAILY PO Last administered on 10/31/18at 10:38; Start 10/26/18 at 09:00; Stop 11/01/18 at 14:13; Status DC Docusate Sodium (Colace) 100 mg PRN DAILY PRN PO STOOL SOFTENER; Start 10/25/18 at 18:15 Magnesium Hydroxide (Milk Of Magnesia) 2,400 mg PRN DAILY PRN PO CONSTIPATION 2ND CHOICE; Start 10/25/18 at 20:15 Psyllium Hydrophilic Mucilloid (Metamucil Fiber Packet) 1 pkt DAILY PO Last administered on 10/31/18at 10:38; Start 10/26/18 at 13:45; Stop 11/01/18 at 14:13; Status DC Mirtazapine (Remeron) 7.5 mg QHS PO Last administered on 11/03/18at 21:36; Start 10/26/18 at 21:00 Pamidronate Disodium 60 mg/ Sodium Chloride 250 ml @ 83.333 mls/ hr 1X ONCE IV Last administered on 10/26/18at 14:45; Start 10/26/18 at 14:00; Stop 10/26/18 at 16:59; Status DC Sodium Chloride 500 ml @ 0 mls/hr 1X ONCE IV Last administered on 10/27/18at 12:05; Start 10/27/18 at 10:15; Stop 10/27/18 at 10:17; Status DC Dextrose/Sodium Chloride 1,000 ml @ 75 mls/hr [id number] IV Last administered on 10/29/18at 08:43; Start 10/27/18 at 17:30; Stop 10/29/18 at 16:12; Status DC Ondansetron HCl (Zofran) 4 mg PRN Q6HRS PRN IV NAUSEA/VOMITING; Start 10/28/18 at 12:15 Acetaminophen (Tylenol) 500 mg PRN Q6HRS PRN PO MILD PAIN / TEMP; Start 10/28/18 at 12:15 Acetaminophen/ Codeine Phosphate (Tylenol #3) 1 tab PRN Q6HRS PRN PO MODERATE PAIN Last administered on 11/03/18at 01:33; Start 10/28/18 at 12:15 Temazepam (Restoril) 7.5 mg PRN QHS PRN PO INSOMNIA; Start 10/28/18 at 12:15 Magnesium Hydroxide (Milk Of Magnesia) 2,400 mg 1X ONCE PO Last administered on 10/28/18at 14:54; Start 10/28/18 at 14:00; Stop 10/28/18 at 14:03; Status DC Insulin Human Lispro (HumaLOG) 0-9 UNITS TIDWMEALS SQ Last administered on 11/03/18at 17:07; Start 10/28/18 at 17:00 Dextrose (Dextrose 50%-Water Syringe) 12.5 gm PRN Q15MIN PRN IV SEE COMMENTS; Start 10/28/18 at 14:15 Dextrose 250 ml PRN Q15MIN PRN IV SEE COMMENTS; Start 10/28/18 at 14:15 Insulin Glargine (Lantus Syringe) 10 unit QHS SQ Last administered on 10/30/18at 21:58; Start 10/29/18 at 21:00; Stop 10/31/18 at 13:16; Status DC Sodium Chloride 500 ml @ 500 mls/hr 1X ONCE IV ; Start 10/29/18 at 17:30; Stop 10/29/18 at 18:19; Status DC Diltiazem HCl (Cardizem 24hr Cd) 180 mg DAILY PO Last administered on 11/02/18at 08:23; Start 10/31/18 at 13:15 Insulin Glargine (Lantus Syringe) 12 unit QHS SQ ; Start 10/31/18 at 13:15; Stop 10/31/18 at 16:19; Status DC Losartan Potassium (Cozaar) 25 mg DAILY PO ; Start 10/31/18 at 13:15; Stop 10/31/18 at 16:02; Status DC Labetalol HCl (Trandate) 100 mg BID PO Last administered on 11/03/18at 21:36; Start 10/31/18 at 21:00 Insulin Glargine (Lantus Syringe) 12 unit QHS SQ Last administered on 11/03/18at 21:36; Start 10/31/18 at 21:00 Iohexol (Omnipaque 300 Mg/ml) 70 ml 1X ONCE IV Last administered on 11/01/18at 12:22; Start 11/01/18 at 12:00; Stop 11/01/18 at 12:01; Status DC Info (CONTRAST GIVEN -- Rx MONITORING) 1 each PRN DAILY PRN MC SEE COMMENTS; Start 11/01/18 at 12:00; Stop 11/03/18 at 11:59; Status DC Active Scripts Active Hydrocodone-Apap 5-325 (Hydrocodone Bit/Acetaminophen) 1 Tab Tablet 1 Tab PO PRN Q6HRS PRN Mirtazapine 7.5 Mg Tablet 7.5 Mg PO QHS 30 Days Proair Hfa (Albuterol Sulfate) 8.5 Gm Hfa.aer.ad 2.5 Mg NEB RTQID 30 Days Reported Symbicort 160-4.5 Mcg Inhaler (Budesonide/Formoterol Fumarate) 10.2 Gm Hfa.aer.ad 2 Puff IH PRN BID PRN Marinol (Dronabinol) 5 Mg Capsule 5 Mg PO TID Bumetanide 1 Mg Tablet 0.5 Tab PO PRN Aldactone (Spironolactone) 25 Mg Tablet 25 Mg PO PRN DAILY Losartan Potassium 50 Mg Tablet 50 Mg PO DAILY Labetalol Hcl 200 Mg Tablet 200 Mg PO BID Cardizem Cd (Diltiazem Hcl) 240 Mg Cap.er.24h 240 Mg PO DAILY Atorvastatin Calcium 20 Mg Tablet 20 Mg PO DAILY Vitamin D3 (Cholecalciferol (Vitamin D3)) 2,000 Unit Tablet 2,000 Unit PO DAILY Vitals/I & O Vital Sign - Last 24 Hours 11/03/18 11/03/18 11/03/18 11/03/18 11:00 15:00 15:36 19:00 Temp 98.3 98.4 98.3 98.3 98.4 98.3 Pulse 112 114 117 Resp 18 18 18 B/P (MAP) 114/44 (67) 109/35 (59) 124/49 (74) Pulse Ox 96 97 98 97 O2 Delivery Nasal Cannula Nasal Cannula Nasal Cannula Nasal Cannula O2 Flow Rate 2.0 2.0 2.0 2.0 11/03/18 11/03/18 11/03/18 11/03/18 20:00 20:19 21:36 23:00 Temp 98.9 98.9 Pulse 117 101 Resp 18 B/P (MAP) 124/49 102/46 (64) Pulse Ox 100 96 O2 Delivery Nasal Cannula Nasal Cannula Nasal Cannula O2 Flow Rate 2.0 2.0 2.0 11/04/18 11/04/18 11/04/18 11/04/18 03:00 07:00 07:21 10:00 Temp 97.8 97.7 97.8 97.7 Pulse 101 98 98 Resp 18 18 B/P (MAP) 112/48 (69) 119/47 (71) 119/47 Pulse Ox 99 99 99 O2 Delivery Nasal Cannula Nasal Cannula Nasal Cannula O2 Flow Rate 2.0 2.0 2.0 11/04/18 10:00 Pulse 98 B/P (MAP) 119/47 Intake and Output 11/03/18 11/03/18 11/04/18 14:59 22:59 06:59 Intake Total 120 ml Balance 120 ml FRANKIE MUNROE MD Nov 04, 2018 10:59
[2018-11-04 11:00] VITALS: BP 101/40
[2018-11-04] MEDS: IV RINGERS,LACTATED 1000ML 1,000 ML IV SCH (14:42)
[2018-11-04 15:00] VITALS: BP 117/57
--- NOTE | 2018-11-04 18:45 | PDOC2 ---
PALLIATIVE CARE Palliative Care Note Palliative Care Spoke with Andrez son. Family has chosen [facility] Plan is to go home with Hospice when discharged. DME: Hospital bed with rails . BSC. Oxygen, Family will inform which residence--sons home or patient's home Will need to call Andrez in am-- [phone] for the decision. Andrez Residence Address; [address], [place] [address] patient address; [address] [facility] [address] EPIFANIO GARNICA Nov 04, 2018 18:45
[2018-11-04 19:00] VITALS: BP 121/46
--- NOTE | 2018-11-04 19:20 | PDOC2 ---
PALLIATIVE CARE Palliative Care Note Palliative Care Discussed Code Status; Reviewed risks and benefits with Andrez. Andrez/son/DPOA requests DNR/DNI. Outside the Hospital DNR/DNI form signed. Spoke with Gila GALAN who will call for order. EPIFANIO GARNICA Nov 04, 2018 19:20
[2018-11-04] MEDS: ATORVASTATIN CALCIUM 20 MG TABLET PO SCH (21:33)
[2018-11-04] MEDS: MIRTAZAPINE 7.5 MG TABLET. PO SCH (21:34)
[2018-11-04] MEDS: INSULIN GLARGINE SYRINGE. SQ SCH (21:38)
[2018-11-04 23:00] VITALS: BP 119/51
[2018-11-05] MEDS: ACETAMINOPHEN 500 MG TABLET PO PRN (00:28)
[2018-11-05 03:00] VITALS: BP 156/54
[2018-11-05 07:00] VITALS: BP 104/43
[2018-11-05] MEDS: DRONABINOL 2.5 MG CAPSULE. PO SCH ×3 (07:38→18:10)
[2018-11-05] MEDS: ALBUTEROL SULFATE 2.5 MG/3 ML NEBU. NEB SCH ×3 (07:49→15:19)
[2018-11-05] MEDS: BUDESONIDE 0.5 MG/2 ML NEBU. NEB SCH (07:49)
[2018-11-05] MEDS: INSULIN LISPRO 300 UNITS/3 ML VIAL. SQ SCH ×3 (08:00→18:10)
--- NOTE | 2018-11-05 08:32 | PDOC ---
PROGRESS NOTES Chief Complaint Chief Complaint hypercalcemia, with constipation hypernatremia hyperchloremia hypogycemia on insulin metastatic breast cancer st 4 - pt/family CONSIDER hospice - weakness and debility Anemia due to malignancy and chemotherapy - Leukopenia - due to chemotherapy. Pleural effusion, malignant - Chest x-ray on 10/24/2018 revealed stable pleural effusions Moderate bilateral layering pleural effusions with adjacent opacities,right greater than left, similar compared to prior allowing for differences in technique.10/29 Stage I decubitus ulcer 27 minutes spent with patient and family today for hospice discharge planning for 11/05/18 History of Present Illness History of Present Illness 11/03/18 Pt seen and examined at bedside Pt in chair resting comfortably upon entry Multiple family members present today DW RN/DW Family Plan Appreciate hospice input Discussed condition with family members extensively DVT prophylaxis home meds PT/OT ONCOLOGY HAS recommended to stop further chemotherapy and focus on supportive care with the help of hospice. family wants to consider thoracentesis,for palliation of symptoms, DR VEGA FOLLOWING D/C with Hospice Sunday Vitals Vitals Vital Signs Date Time Temp Pulse Resp B/P (MAP) Pulse Ox O2 Delivery O2 Flow Rate FiO2 11/05/18 07:49 96 Nasal Cannula 2.0 11/05/18 07:00 97.7 102 17 104/43 (63) 97.7 Physical Exam General: Alert, Oriented X3, No acute distress Heart: Normal S1, Normal S2 Lungs: Clear (BUL), Other (decrease bases) Abdomen: Normal bowel sounds, No tenderness, No hepatosplenomegaly Extremities: No clubbing, No cyanosis, No edema, Other Skin: No rashes, No significant lesion Labs LABS Laboratory Tests Test 11/04/18 10:19 11/04/18 11:57 11/04/18 16:48 11/04/18 20:33 Sodium Level 147 mmol/L (136-145) Potassium Level 4.9 mmol/L (3.5-5.1) Chloride Level 111 mmol/L (98-107) Carbon Dioxide Level 32 mmol/L (21-32) Anion Gap 4 (6-14) Blood Urea Nitrogen 50 mg/dL (7-20) Creatinine 0.9 mg/dL (0.6-1.0) Estimated GFR (Cockcroft-Gault) 73.7 Glucose Level 169 mg/dL (70-99) Calcium Level 10.9 mg/dL (8.5-10.1) Glucose (Fingerstick) 170 mg/dL (70-99) 244 mg/dL (70-99) 218 mg/dL (70-99) Test 11/05/18 08:07 Glucose (Fingerstick) 150 mg/dL (70-99) Assessment and Plan Assessmemt and Plan Problems Medical Problems: (1) Hypercalcemia Status: Acute (2) Hypernatremia Status: Acute (3) Metastatic breast cancer Status: Chronic Comment Review of Relevant I have reviewed the following items patrica (where applicable) has been applied. Labs Laboratory Tests Test 11/03/18 11:24 11/03/18 16:43 11/03/18 20:44 11/04/18 07:53 Glucose (Fingerstick) 228 mg/dL (70-99) 204 mg/dL (70-99) 193 mg/dL (70-99) 142 mg/dL (70-99) Test 11/04/18 10:19 11/04/18 11:57 11/04/18 16:48 11/04/18 20:33 Sodium Level 147 mmol/L (136-145) Potassium Level 4.9 mmol/L (3.5-5.1) Chloride Level 111 mmol/L (98-107) Carbon Dioxide Level 32 mmol/L (21-32) Anion Gap 4 (6-14) Blood Urea Nitrogen 50 mg/dL (7-20) Creatinine 0.9 mg/dL (0.6-1.0) Estimated GFR (Cockcroft-Gault) 73.7 Glucose Level 169 mg/dL (70-99) Calcium Level 10.9 mg/dL (8.5-10.1) Glucose (Fingerstick) 170 mg/dL (70-99) 244 mg/dL (70-99) 218 mg/dL (70-99) Test 11/05/18 08:07 Glucose (Fingerstick) 150 mg/dL (70-99) Laboratory Tests Test 11/04/18 10:19 11/04/18 11:57 11/04/18 16:48 11/04/18 20:33 Sodium Level 147 mmol/L (136-145) Potassium Level 4.9 mmol/L (3.5-5.1) Chloride Level 111 mmol/L (98-107) Carbon Dioxide Level 32 mmol/L (21-32) Anion Gap 4 (6-14) Blood Urea Nitrogen 50 mg/dL (7-20) Creatinine 0.9 mg/dL (0.6-1.0) Estimated GFR (Cockcroft-Gault) 73.7 Glucose Level 169 mg/dL (70-99) Calcium Level 10.9 mg/dL (8.5-10.1) Glucose (Fingerstick) 170 mg/dL (70-99) 244 mg/dL (70-99) 218 mg/dL (70-99) Test 11/05/18 08:07 Glucose (Fingerstick) 150 mg/dL (70-99) Microbiology 10/31/18 Anaerobic/Aerobic Culture - Final, Complete 10/31/18 Anaerobic Culture Result 1 (KEISHA) - Final, Complete 10/31/18 Aerobic Culture - Final, Complete 10/31/18 Aerobic Culture Result 1 (KEISHA) - Final, Complete 10/31/18 Gram Stain - Final, Complete 10/31/18 Gram Stain Result 1 (KEISHA) - Final, Complete 10/31/18 Gram Stain Result 2 (KEISHA) - Final, Complete Medications Current Medications Lidocaine/ Epinephrine (Let Topical) 3 ml STK-MED ONCE TP ; Start 10/25/18 at 12:24; Stop 10/25/18 at 12:24; Status DC Lidocaine/ Epinephrine (Let Topical) 3 ml 1X ONCE TP Last administered on 10/25/18at 12:38; Start 10/25/18 at 12:30; Stop 10/25/18 at 12:34; Status DC Acetaminophen/ Hydrocodone Bitart (Lortab 5/325) 1 tab 1X ONCE PO Last administered on 10/25/18at 12:49; Start 10/25/18 at 13:15; Stop 10/25/18 at 13:16; Status DC Ondansetron HCl (Zofran) 4 mg PRN Q8HRS PRN IV NAUSEA/VOMITING; Start 10/25/18 at 13:45; Stop 10/26/18 at 13:44; Status DC Morphine Sulfate (Morphine Sulfate) 4 mg PRN Q2HR PRN IV PAIN; Start 10/25/18 at 13:45; Stop 10/26/18 at 13:44; Status DC Acetaminophen (Tylenol) 650 mg PRN Q4HRS PRN PO FEVER Last administered on 10/26/18 11:34; Start 10/25/18 at 13:45; Stop 10/26/18 at 13:44; Status DC Sodium Chloride 1,000 ml @ 125 mls/hr 1X ONCE IV Last administered on 10/25/18 13:52; Start 10/25/18 at 13:45; Stop 10/25/18 at 21:44; Status DC Lidocaine/ Epinephrine (Let Topical) 3 ml 1X ONCE TP Last administered on 10/25/18 15:58; Start 10/25/18 at 16:00; Stop 10/25/18 at 16:01; Status DC Albuterol Sulfate (Ventolin Neb Soln) 2.5 mg RTQID NEB Last administered on 11/05/18 07:49; Start 10/25/18 at 20:00 Atorvastatin Calcium (Lipitor) 20 mg QHS PO Last administered on 11/04/18 21:38; Start 10/25/18 at 21:00 Bumetanide (Bumex) 0.5 mg PRN DAILY PRN PO EDEMA 1st choice Last administered on 11/02/18 08:23; Start 10/25/18 at 17:15 Diltiazem HCl (Cardizem 24hr Cd) 240 mg DAILY PO Last administered on 10/31/18 10:38; Start 10/25/18 at 17:30; Stop 10/31/18 at 13:16; Status DC Acetaminophen/ Hydrocodone Bitart (Lortab 5/325) 1 tab PRN Q6HRS PRN PO SEVERE PAIN Last administered on 11/02/18 07:37; Start 10/25/18 at 17:15 Labetalol HCl (Trandate) 200 mg BID PO Last administered on 10/31/18 10:38; Start 10/25/18 at 21:00; Stop 10/31/18 at 16:02; Status DC Losartan Potassium (Cozaar) 50 mg DAILY PO Last administered on 10/31/18 10:38; Start 10/25/18 at 17:30; Stop 10/31/18 at 13:16; Status DC Spironolactone (Aldactone) 25 mg PRN DAILY PRN PO EDEMA 2nd choice; Start 10/25/18 at 17:15 Budesonide (Pulmicort) 0.5 mg RTBID NEB Last administered on 11/05/18at 07:49; Start 10/25/18 at 20:00 Vitamin D (Vitamin D3) 2,000 unit DAILY PO Last administered on 10/27/18 09:42; Start 10/26/18 at 09:00; Stop 10/28/18 at 08:57; Status DC Dronabinol (Marinol) 5 mg TIDAC PO Last administered on 11/05/18at 07:39; Start 10/25/18 at 17:30 Insulin Glargine (Lantus Syringe) 25 unit QHS SQ Last administered on 10/27/18at 20:33; Start 10/25/18 at 21:00; Stop 10/28/18 at 14:03; Status DC Insulin Human Lispro (HumaLOG) 15 units TIDWMEALS SQ Last administered on 10/27/18 09:42; Start 10/25/18 at 18:00; Stop 10/28/18 at 14:03; Status DC Insulin Human Lispro (HumaLOG) 0-7 UNITS TIDWMEALS SQ Last administered on 10/25/18at 18:23; Start 10/25/18 at 17:30; Stop 10/28/18 at 14:03; Status DC Dextrose (Dextrose 50%-Water Syringe) 12.5 gm PRN Q15MIN PRN IV SEE COMMENTS Last administered on 10/28/18at 07:45; Start 10/25/18 at 17:15; Stop 10/28/18 at 15:16; Status DC Dextrose 250 ml PRN Q15MIN PRN IV SEE COMMENTS; Start 10/25/18 at 17:15; Status Cancel Polyethylene Glycol (miraLAX PACKET) 17 gm PRN DAILY PRN PO CONSTIPATION 1ST CHOICE; Start 10/25/18 at 17:30 Sodium Chloride 1,000 ml @ 100 mls/hr Q10H IV Last administered on 10/25/18at 23:25; Start 10/25/18 at 17:30; Stop 10/26/18 at 12:31; Status DC Polyethylene Glycol (miraLAX PACKET) 17 gm DAILY PO Last administered on 10/31/18at 10:38; Start 10/26/18 at 09:00; Stop 11/01/18 at 14:13; Status DC Docusate Sodium (Colace) 100 mg DAILY PO Last administered on 10/31/18at 10:38; Start 10/26/18 at 09:00; Stop 11/01/18 at 14:13; Status DC Docusate Sodium (Colace) 100 mg PRN DAILY PRN PO STOOL SOFTENER; Start 10/25/18 at 18:15 Magnesium Hydroxide (Milk Of Magnesia) 2,400 mg PRN DAILY PRN PO CONSTIPATION 2ND CHOICE; Start 10/25/18 at 20:15 Psyllium Hydrophilic Mucilloid (Metamucil Fiber Packet) 1 pkt DAILY PO Last administered on 10/31/18at 10:38; Start 10/26/18 at 13:45; Stop 11/01/18 at 14:13; Status DC Mirtazapine (Remeron) 7.5 mg QHS PO Last administered on 11/04/18at 21:38; Start 10/26/18 at 21:00 Pamidronate Disodium 60 mg/ Sodium Chloride 250 ml @ 83.333 mls/ hr 1X ONCE IV Last administered on 10/26/18at 14:45; Start 10/26/18 at 14:00; Stop 10/26/18 at 16:59; Status DC Sodium Chloride 500 ml @ 0 mls/hr 1X ONCE IV Last administered on 10/27/18at 12:05; Start 10/27/18 at 10:15; Stop 10/27/18 at 10:17; Status DC Dextrose/Sodium Chloride 1,000 ml @ 75 mls/hr [id number] IV Last administered on 10/29/18at 08:43; Start 10/27/18 at 17:30; Stop 10/29/18 at 16:12; Status DC Ondansetron HCl (Zofran) 4 mg PRN Q6HRS PRN IV NAUSEA/VOMITING; Start 10/28/18 at 12:15 Acetaminophen (Tylenol) 500 mg PRN Q6HRS PRN PO MILD PAIN / TEMP Last administered on 11/05/18at 00:28; Start 10/28/18 at 12:15 Acetaminophen/ Codeine Phosphate (Tylenol #3) 1 tab PRN Q6HRS PRN PO MODERATE PAIN Last administered on 11/03/18at 01:33; Start 10/28/18 at 12:15 Temazepam (Restoril) 7.5 mg PRN QHS PRN PO INSOMNIA; Start 10/28/18 at 12:15 Magnesium Hydroxide (Milk Of Magnesia) 2,400 mg 1X ONCE PO Last administered on 10/28/18at 14:54; Start 10/28/18 at 14:00; Stop 10/28/18 at 14:03; Status DC Insulin Human Lispro (HumaLOG) 0-9 UNITS TIDWMEALS SQ Last administered on 11/04/18at 17:35; Start 10/28/18 at 17:00 Dextrose (Dextrose 50%-Water Syringe) 12.5 gm PRN Q15MIN PRN IV SEE COMMENTS; Start 10/28/18 at 14:15 Dextrose 250 ml PRN Q15MIN PRN IV SEE COMMENTS; Start 10/28/18 at 14:15 Insulin Glargine (Lantus Syringe) 10 unit QHS SQ Last administered on 10/30/18at 21:58; Start 10/29/18 at 21:00; Stop 10/31/18 at 13:16; Status DC Sodium Chloride 500 ml @ 500 mls/hr 1X ONCE IV ; Start 10/29/18 at 17:30; Stop 10/29/18 at 18:19; Status DC Diltiazem HCl (Cardizem 24hr Cd) 180 mg DAILY PO Last administered on 11/02/18at 08:23; Start 10/31/18 at 13:15 Insulin Glargine (Lantus Syringe) 12 unit QHS SQ ; Start 10/31/18 at 13:15; Stop 10/31/18 at 16:19; Status DC Losartan Potassium (Cozaar) 25 mg DAILY PO ; Start 10/31/18 at 13:15; Stop 10/31/18 at 16:02; Status DC Labetalol HCl (Trandate) 100 mg BID PO Last administered on 11/04/18at 21:38; Start 10/31/18 at 21:00 Insulin Glargine (Lantus Syringe) 12 unit QHS SQ Last administered on 11/04/18at 21:38; Start 10/31/18 at 21:00 Iohexol (Omnipaque 300 Mg/ml) 70 ml 1X ONCE IV Last administered on 11/01/18at 12:22; Start 11/01/18 at 12:00; Stop 11/01/18 at 12:01; Status DC Info (CONTRAST GIVEN -- Rx MONITORING) 1 each PRN DAILY PRN MC SEE COMMENTS; Start 11/01/18 at 12:00; Stop 11/03/18 at 11:59; Status DC Ringer's Solution 1,000 ml @ 50 mls/hr Q20H IV Last administered on 11/04/18at 14:45; Start 11/04/18 at 14:00 Active Scripts Active Hydrocodone-Apap 5-325 (Hydrocodone Bit/Acetaminophen) 1 Tab Tablet 1 Tab PO PRN Q6HRS PRN Mirtazapine 7.5 Mg Tablet 7.5 Mg PO QHS 30 Days Proair Hfa (Albuterol Sulfate) 8.5 Gm Hfa.aer.ad 2.5 Mg NEB RTQID 30 Days Reported Symbicort 160-4.5 Mcg Inhaler (Budesonide/Formoterol Fumarate) 10.2 Gm Hfa.aer.ad 2 Puff IH PRN BID PRN Marinol (Dronabinol) 5 Mg Capsule 5 Mg PO TID Bumetanide 1 Mg Tablet 0.5 Tab PO PRN Aldactone (Spironolactone) 25 Mg Tablet 25 Mg PO PRN DAILY Losartan Potassium 50 Mg Tablet 50 Mg PO DAILY Labetalol Hcl 200 Mg Tablet 200 Mg PO BID Cardizem Cd (Diltiazem Hcl) 240 Mg Cap.er.24h 240 Mg PO DAILY Atorvastatin Calcium 20 Mg Tablet 20 Mg PO DAILY Vitamin D3 (Cholecalciferol (Vitamin D3)) 2,000 Unit Tablet 2,000 Unit PO DAILY Vitals/I & O Vital Sign - Last 24 Hours 11/04/18 11/04/18 11/04/18 11/04/18 10:00 10:00 11:00 11:07 Temp 98.2 98.2 Pulse 98 98 109 Resp 17 B/P (MAP) 119/47 119/47 101/40 (60) Pulse Ox 99 O2 Delivery Nasal Cannula Nasal Cannula O2 Flow Rate 2.0 2.0 11/04/18 11/04/18 11/04/18 11/04/18 15:00 15:24 19:00 19:50 Temp 98.5 99.1 98.5 99.1 Pulse 117 118 Resp 17 20 B/P (MAP) 117/57 (77) 121/46 (71) Pulse Ox 99 99 98 99 O2 Delivery Nasal Cannula Nasal Cannula Room Air Nasal Cannula O2 Flow Rate 2.0 2.0 2.0 11/04/18 11/04/18 11/04/18 11/05/18 20:00 21:38 23:00 03:00 Temp 98.2 98.2 Pulse 118 107 101 Resp 18 18 B/P (MAP) 121/46 119/51 (73) 156/54 (88) Pulse Ox 96 95 O2 Delivery Room Air Nasal Cannula Nasal Cannula O2 Flow Rate 3.0 3.0 11/05/18 11/05/18 07:00 07:49 Temp 97.7 97.7 Pulse 102 Resp 17 B/P (MAP) 104/43 (63) Pulse Ox 91 96 O2 Delivery Nasal Cannula Nasal Cannula O2 Flow Rate 2.0 2.0 Intake and Output 0 11/04/18 11/04/18 11/05/18 14:59 22:59 06:59 Intake Total 0 ml 0 ml Balance 0 ml 0 ml KAITLIN BAH MD Nov 05, 2018 08:32
--- NOTE | 2018-11-05 08:47 | NUR ---
MAILE following pt. MAILE spoke with pt's son, they have chosen [facility]. MAILE left a message to Monique at hospice. Will continue to follow. Anticipate pt will dc home with hospice today.
[2018-11-05] MEDS: LABETALOL HCL 100 MG TABLET. PO SCH (09:00)
--- NOTE | 2018-11-05 09:19 | PDOC ---
PROGRESS NOTES Subjective Subjective HPI - f/u of Stage 4 metastatic breast cancer ROS - no dyspnea Objective Objective Vital Signs Date Time Temp Pulse Resp B/P (MAP) Pulse Ox O2 Delivery O2 Flow Rate FiO2 11/05/18 07:49 96 Nasal Cannula 2.0 11/05/18 07:00 97.7 102 17 104/43 (63) 97.7 Intake and Output 11/05/18 06:59 Intake Total 0 ml Balance 0 ml Intake Oral 0 ml # Voids 2 Physical Exam General: Alert, Oriented X3, No acute distress Neuro: Normal speech Psych/Mental Status: Mental status NL Assessment Assessment Problems Medical Problems: (1) Hypercalcemia Status: Acute (2) Hypernatremia Status: Acute (3) Metastatic breast cancer Status: Chronic IMPRESSION AND PLAN: 1. Stage 4 metastatic breast cancer with bone metastasis and pleural effusion and ascites. She was started on Abraxane due to disease progression with prior therapy. She has been on Abraxane since 06/21/2018. However, she developed worsening pleural effusion requiring thoracentesis on 10/11/2018 indicating progressive disease. She has now developed hypercalcemia. This is another sign of disease progression. Her performance status is poor. ECOG performance status is 4. Considering progressive disease despite chemotherapy and declining functional status, I have recommended to stop further chemotherapy and focus on comfort care and supportive care with the help of hospice. The patient understands and all her questions were answered. Agree with hospice plans. 2. 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 I agree with IV hydration. s/p aredia 10/26/18 Ca now 10.9. 3. 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 Hb 7.9 4. Leukopenia due to chemotherapy. 5. Pleural effusion, malignant Clinically). Chest x-ray on 10/24/2018 revealed stable pleural effusions. s/p rt thoracentesis 1.1L on 10/31/18. 6. Malignant ascites (positive cytology 06/14/18). Comment Review of Relevant I have reviewed the following items patrica (where applicable) has been applied. Labs Laboratory Tests Test 11/03/18 11:24 11/03/18 16:43 11/03/18 20:44 11/04/18 07:53 Glucose (Fingerstick) 228 mg/dL (70-99) 204 mg/dL (70-99) 193 mg/dL (70-99) 142 mg/dL (70-99) Test 11/04/18 10:19 11/04/18 11:57 11/04/18 16:48 11/04/18 20:33 Sodium Level 147 mmol/L (136-145) Potassium Level 4.9 mmol/L (3.5-5.1) Chloride Level 111 mmol/L (98-107) Carbon Dioxide Level 32 mmol/L (21-32) Anion Gap 4 (6-14) Blood Urea Nitrogen 50 mg/dL (7-20) Creatinine 0.9 mg/dL (0.6-1.0) Estimated GFR (Cockcroft-Gault) 73.7 Glucose Level 169 mg/dL (70-99) Calcium Level 10.9 mg/dL (8.5-10.1) Glucose (Fingerstick) 170 mg/dL (70-99) 244 mg/dL (70-99) 218 mg/dL (70-99) Test 11/05/18 08:07 Glucose (Fingerstick) 150 mg/dL (70-99) Laboratory Tests Test 11/04/18 10:19 11/04/18 11:57 11/04/18 16:48 11/04/18 20:33 Sodium Level 147 mmol/L (136-145) Potassium Level 4.9 mmol/L (3.5-5.1) Chloride Level 111 mmol/L (98-107) Carbon Dioxide Level 32 mmol/L (21-32) Anion Gap 4 (6-14) Blood Urea Nitrogen 50 mg/dL (7-20) Creatinine 0.9 mg/dL (0.6-1.0) Estimated GFR (Cockcroft-Gault) 73.7 Glucose Level 169 mg/dL (70-99) Calcium Level 10.9 mg/dL (8.5-10.1) Glucose (Fingerstick) 170 mg/dL (70-99) 244 mg/dL (70-99) 218 mg/dL (70-99) Test 11/05/18 08:07 Glucose (Fingerstick) 150 mg/dL (70-99) Microbiology 10/31/18 Anaerobic/Aerobic Culture - Final, Complete 10/31/18 Anaerobic Culture Result 1 (KEISHA) - Final, Complete 10/31/18 Aerobic Culture - Final, Complete 10/31/18 Aerobic Culture Result 1 (KEISHA) - Final, Complete 10/31/18 Gram Stain - Final, Complete 10/31/18 Gram Stain Result 1 (KEISHA) - Final, Complete 10/31/18 Gram Stain Result 2 (KEISHA) - Final, Complete Medications Current Medications Lidocaine/ Epinephrine (Let Topical) 3 ml STK-MED ONCE TP ; Start 10/25/18 at 12:24; Stop 10/25/18 at 12:24; Status DC Lidocaine/ Epinephrine (Let Topical) 3 ml 1X ONCE TP Last administered on 10/25/18at 12:38; Start 10/25/18 at 12:30; Stop 10/25/18 at 12:34; Status DC Acetaminophen/ Hydrocodone Bitart (Lortab 5/325) 1 tab 1X ONCE PO Last administered on 10/25/18at 12:49; Start 10/25/18 at 13:15; Stop 10/25/18 at 13:16; Status DC Ondansetron HCl (Zofran) 4 mg PRN Q8HRS PRN IV NAUSEA/VOMITING; Start 10/25/18 at 13:45; Stop 10/26/18 at 13:44; Status DC Morphine Sulfate (Morphine Sulfate) 4 mg PRN Q2HR PRN IV PAIN; Start 10/25/18 at 13:45; Stop 10/26/18 at 13:44; Status DC Acetaminophen (Tylenol) 650 mg PRN Q4HRS PRN PO FEVER Last administered on 10/26/18at 11:34; Start 10/25/18 at 13:45; Stop 10/26/18 at 13:44; Status DC Sodium Chloride 1,000 ml @ 125 mls/hr 1X ONCE IV Last administered on 10/25/18at 13:52; Start 10/25/18 at 13:45; Stop 10/25/18 at 21:44; Status DC Lidocaine/ Epinephrine (Let Topical) 3 ml 1X ONCE TP Last administered on 10/25/18at 15:58; Start 10/25/18 at 16:00; Stop 10/25/18 at 16:01; Status DC Albuterol Sulfate (Ventolin Neb Soln) 2.5 mg RTQID NEB Last administered on 11/05/18at 07:49; Start 10/25/18 at 20:00 Atorvastatin Calcium (Lipitor) 20 mg QHS PO Last administered on 11/04/18 21:38; Start 10/25/18 at 21:00 Bumetanide (Bumex) 0.5 mg PRN DAILY PRN PO EDEMA 1st choice Last administered on 11/02/18 08:23; Start 10/25/18 at 17:15 Diltiazem HCl (Cardizem 24hr Cd) 240 mg DAILY PO Last administered on 10/31/18 10:38; Start 10/25/18 at 17:30; Stop 10/31/18 at 13:16; Status DC Acetaminophen/ Hydrocodone Bitart (Lortab 5/325) 1 tab PRN Q6HRS PRN PO SEVERE PAIN Last administered on 11/02/18 07:37; Start 10/25/18 at 17:15 Labetalol HCl (Trandate) 200 mg BID PO Last administered on 10/31/18 10:38; Start 10/25/18 at 21:00; Stop 10/31/18 at 16:02; Status DC Losartan Potassium (Cozaar) 50 mg DAILY PO Last administered on 10/31/18 10:38; Start 10/25/18 at 17:30; Stop 10/31/18 at 13:16; Status DC Spironolactone (Aldactone) 25 mg PRN DAILY PRN PO EDEMA 2nd choice; Start 10/25/18 at 17:15 Budesonide (Pulmicort) 0.5 mg RTBID NEB Last administered on 11/05/18 07:49; Start 10/25/18 at 20:00 Vitamin D (Vitamin D3) 2,000 unit DAILY PO Last administered on 10/27/18 09:42; Start 10/26/18 at 09:00; Stop 10/28/18 at 08:57; Status DC Dronabinol (Marinol) 5 mg TIDAC PO Last administered on 11/05/18 07:39; Start 10/25/18 at 17:30 Insulin Glargine (Lantus Syringe) 25 unit QHS SQ Last administered on 10/27/18 20:33; Start 10/25/18 at 21:00; Stop 10/28/18 at 14:03; Status DC Insulin Human Lispro (HumaLOG) 15 units TIDWMEALS SQ Last administered on 9/8/19at 09:42; Start 10/25/18 at 18:00; Stop 10/28/18 at 14:03; Status DC Insulin Human Lispro (HumaLOG) 0-7 UNITS TIDWMEALS SQ Last administered on 10/25/18 18:23; Start 10/25/18 at 17:30; Stop 10/28/18 at 14:03; Status DC Dextrose (Dextrose 50%-Water Syringe) 12.5 gm PRN Q15MIN PRN IV SEE COMMENTS Last administered on 10/28/18at 07:45; Start 10/25/18 at 17:15; Stop 10/28/18 at 15:16; Status DC Dextrose 250 ml PRN Q15MIN PRN IV SEE COMMENTS; Start 10/25/18 at 17:15; Status Cancel Polyethylene Glycol (miraLAX PACKET) 17 gm PRN DAILY PRN PO CONSTIPATION 1ST CHOICE; Start 10/25/18 at 17:30 Sodium Chloride 1,000 ml @ 100 mls/hr Q10H IV Last administered on 10/25/18at 23:25; Start 10/25/18 at 17:30; Stop 10/26/18 at 12:31; Status DC Polyethylene Glycol (miraLAX PACKET) 17 gm DAILY PO Last administered on 10/31/18 10:38; Start 10/26/18 at 09:00; Stop 11/01/18 at 14:13; Status DC Docusate Sodium (Colace) 100 mg DAILY PO Last administered on 10/31/18at 10:38; Start 10/26/18 at 09:00; Stop 11/01/18 at 14:13; Status DC Docusate Sodium (Colace) 100 mg PRN DAILY PRN PO STOOL SOFTENER; Start 10/25/18 at 18:15 Magnesium Hydroxide (Milk Of Magnesia) 2,400 mg PRN DAILY PRN PO CONSTIPATION 2ND CHOICE; Start 10/25/18 at 20:15 Psyllium Hydrophilic Mucilloid (Metamucil Fiber Packet) 1 pkt DAILY PO Last administered on 10/31/18at 10:38; Start 10/26/18 at 13:45; Stop 11/01/18 at 14:13; Status DC Mirtazapine (Remeron) 7.5 mg QHS PO Last administered on 11/04/18at 21:38; Start 10/26/18 at 21:00 Pamidronate Disodium 60 mg/ Sodium Chloride 250 ml @ 83.333 mls/ hr 1X ONCE IV Last administered on 10/26/18at 14:45; Start 10/26/18 at 14:00; Stop 10/26/18 at 16:59; Status DC Sodium Chloride 500 ml @ 0 mls/hr 1X ONCE IV Last administered on 10/27/18at 12:05; Start 10/27/18 at 10:15; Stop 10/27/18 at 10:17; Status DC Dextrose/Sodium Chloride 1,000 ml @ 75 mls/hr [id number] IV Last administered on 10/29/18at 08:43; Start 10/27/18 at 17:30; Stop 10/29/18 at 16:12; Status DC Ondansetron HCl (Zofran) 4 mg PRN Q6HRS PRN IV NAUSEA/VOMITING; Start 10/28/18 at 12:15 Acetaminophen (Tylenol) 500 mg PRN Q6HRS PRN PO MILD PAIN / TEMP Last administered on 11/05/18at 00:28; Start 10/28/18 at 12:15 Acetaminophen/ Codeine Phosphate (Tylenol #3) 1 tab PRN Q6HRS PRN PO MODERATE PAIN Last administered on 11/03/18at 01:33; Start 10/28/18 at 12:15 Temazepam (Restoril) 7.5 mg PRN QHS PRN PO INSOMNIA; Start 10/28/18 at 12:15 Magnesium Hydroxide (Milk Of Magnesia) 2,400 mg 1X ONCE PO Last administered on 10/28/18at 14:54; Start 10/28/18 at 14:00; Stop 10/28/18 at 14:03; Status DC Insulin Human Lispro (HumaLOG) 0-9 UNITS TIDWMEALS SQ Last administered on 11/04/18at 17:35; Start 10/28/18 at 17:00 Dextrose (Dextrose 50%-Water Syringe) 12.5 gm PRN Q15MIN PRN IV SEE COMMENTS; Start 10/28/18 at 14:15 Dextrose 250 ml PRN Q15MIN PRN IV SEE COMMENTS; Start 10/28/18 at 14:15 Insulin Glargine (Lantus Syringe) 10 unit QHS SQ Last administered on 10/30/18at 21:58; Start 10/29/18 at 21:00; Stop 10/31/18 at 13:16; Status DC Sodium Chloride 500 ml @ 500 mls/hr 1X ONCE IV ; Start 10/29/18 at 17:30; Sto p 10/29/18 at 18:19; Status DC Diltiazem HCl (Cardizem 24hr Cd) 180 mg DAILY PO Last administered on 11/02/18at 08:23; Start 10/31/18 at 13:15 Insulin Glargine (Lantus Syringe) 12 unit QHS SQ ; Start 10/31/18 at 13:15; Stop 10/31/18 at 16:19; Status DC Losartan Potassium (Cozaar) 25 mg DAILY PO ; Start 10/31/18 at 13:15; Stop 10/31/18 at 16:02; Status DC Labetalol HCl (Trandate) 100 mg BID PO Last administered on 11/04/18at 21:38; Start 10/31/18 at 21:00 Insulin Glargine (Lantus Syringe) 12 unit QHS SQ Last administered on 11/04/18at 21:38; Start 10/31/18 at 21:00 Iohexol (Omnipaque 300 Mg/ml) 70 ml 1X ONCE IV Last administered on 11/01/18at 12:22; Start 11/01/18 at 12:00; Stop 11/01/18 at 12:01; Status DC Info (CONTRAST GIVEN -- Rx MONITORING) 1 each PRN DAILY PRN MC SEE COMMENTS; Start 11/01/18 at 12:00; Stop 11/03/18 at 11:59; Status DC Ringer's Solution 1,000 ml @ 50 mls/hr Q20H IV Last administered on 11/04/18at 14:45; Start 11/04/18 at 14:00 Active Scripts Active Hydrocodone-Apap 5-325 (Hydrocodone Bit/Acetaminophen) 1 Tab Tablet 1 Tab PO PRN Q6HRS PRN Mirtazapine 7.5 Mg Tablet 7.5 Mg PO QHS 30 Days Proair Hfa (Albuterol Sulfate) 8.5 Gm Hfa.aer.ad 2.5 Mg NEB RTQID 30 Days Reported Symbicort 160-4.5 Mcg Inhaler (Budesonide/Formoterol Fumarate) 10.2 Gm Hfa.aer.ad 2 Puff IH PRN BID PRN Marinol (Dronabinol) 5 Mg Capsule 5 Mg PO TID Bumetanide 1 Mg Tablet 0.5 Tab PO PRN Aldactone (Spironolactone) 25 Mg Tablet 25 Mg PO PRN DAILY Losartan Potassium 50 Mg Tablet 50 Mg PO DAILY Labetalol Hcl 200 Mg Tablet 200 Mg PO BID Cardizem Cd (Diltiazem Hcl) 240 Mg Cap.er.24h 240 Mg PO DAILY Atorvastatin Calcium 20 Mg Tablet 20 Mg PO DAILY Vitamin D3 (Cholecalciferol (Vitamin D3)) 2,000 Unit Tablet 2,000 Unit PO DAILY Vitals/I & O Vital Sign - Last 24 Hours 11/04/18 11/04/18 11/04/18 11/04/18 10:00 10:00 11:00 11:07 Temp 98.2 98.2 Pulse 98 98 109 Resp 17 B/P (MAP) 119/47 119/47 101/40 (60) Pulse Ox 99 O2 Delivery Nasal Cannula Nasal Cannula O2 Flow Rate 2.0 2.0 11/04/18 11/04/18 11/04/18 11/04/18 15:00 15:24 19:00 19:50 Temp 98.5 99.1 98.5 99.1 Pulse 117 118 Resp 17 20 B/P (MAP) 117/57 (77) 121/46 (71) Pulse Ox 99 99 98 99 O2 Delivery Nasal Cannula Nasal Cannula Room Air Nasal Cannula O2 Flow Rate 2.0 2.0 2.0 11/04/18 11/04/18 11/04/18 11/05/18 20:00 21:38 23:00 03:00 Temp 98.2 98.2 Pulse 118 107 101 Resp 18 18 B/P (MAP) 121/46 119/51 (73) 156/54 (88) Pulse Ox 96 95 O2 Delivery Room Air Nasal Cannula Nasal Cannula O2 Flow Rate 3.0 3.0 11/05/18 11/05/18 07:00 07:49 Temp 97.7 97.7 Pulse 102 Resp 17 B/P (MAP) 104/43 (63) Pulse Ox 91 96 O2 Delivery Nasal Cannula Nasal Cannula O2 Flow Rate 2.0 2.0 Intake and Output 11/04/18 11/04/1819 14:59 22:59 06:59 Intake Total 0 ml 0 ml Balance 0 ml 0 ml FRANKIE MURNOE MD Nov 05, 2018 09:19
[2018-11-05] MEDS: IV RINGERS,LACTATED 1000ML 1,000 ML IV SCH (10:07)
[2018-11-05 11:00] VITALS: BP 113/43
[2018-11-05] MEDS ORDERED: LORazepam INTENSOL 2 MG/ML ORAL.CONC SL PRN (11:45)
[2018-11-05] MEDS ORDERED: MORPHINE SULFATE 20 MG/ML CONC SOLUTION. SL PRN (11:45)
[2018-11-05] MEDS ORDERED: MORP100S3 SL (12:17)
[2018-11-05] MEDS ORDERED: LORA2ORA7 SL (12:17)
[2018-11-05] MEDS ORDERED: POLY17PO28 PO (12:17)
--- NOTE | 2018-11-05 12:19 | SNU/HH DC ---
DISCHARGE ORDERS DISCHARGE INFORMATION: DISCHARGE DATE: Nov 05, 2018 FINAL DIAGNOSIS Problems Medical Problems: (1) Hypercalcemia Status: Acute (2) Hypernatremia Status: Acute (3) Metastatic breast cancer Status: Chronic CONDITION ON DISCHARGE: Stable CODE STATUS: Code Status: DNR/DNI HOSPICE: HOSPICE: Yes HOSPICE EVAL & TREAT: Yes POST DISCHARGE ORDERS: ACTIVITY ORDERS: Activity as tolerated WEIGHT BEARING STATUS: Full weight bearing, As tolerated DIET AFTER DISCHARGE: Regular WOUND/INCISION CARE: Ice to area for comfort, Change dressing, May get incision wet CHECKS AFTER DISCHARGE: CHECKS AFTER DISCHARGE: Check blood press - daily FOLLOW-UP: Additional Instructions: Port care with 3ml 0.9% saline flush every 1-3 weeks TREATMENT/EQUIPMENT ORDERS: ADAPTIVE EQUIPMENT NEEDED: None INFUSION EQUIPMENT NEEDED: PortaCath RESPIRATORY EQUIPMENT NEEDED: Oxygen, Nebulizer, MDI DISCHARGE MEDICATIONS: Home Meds Active Scripts Polyethylene Glycol 3350 (POLYETHYLENE GLYCOL 3350) 17 Gm Powd.pack, 17 GM PO PRN DAILY PRN for CONSTIPATION 1ST CHOICE for 30 Days, #30 PKT Prov:KAITLIN BAH MD 11/05/18 Lorazepam (LORAZEPAM INTENSOL) 2 Mg/1 Ml Oral.conc, 0.5 MG SL PRN Q6HRS PRN for ANXIETY / AGITATION for 30 Days, #1 MISC Prov:KAITLIN BAH MD 11/05/18 Morphine Sulfate (MORPHINE SULFATE) 100 Mg/5 Ml Solution, 5 MG SL PRN Q3HRS PRN for PAIN for 30 Days, #1 MISC Prov:KAITLIN BAH MD 11/05/18 Hydrocodone Bit/Acetaminophen (HYDROCODONE-APAP 5-325 ) 1 Tab Tablet, 1 TAB PO PRN Q6HRS PRN for PAIN, #20 TAB 0 Refills Prov:NITIN WEAVER MD 10/28/18 Mirtazapine (MIRTAZAPINE) 7.5 Mg Tablet, 7.5 MG PO QHS for MOOD for 30 Days, #30 TAB Prov:KOSTAS RODRIGUEZ MD 06/21/18 Albuterol Sulfate (Proair Hfa) 8.5 Gm Hfa.aer.ad, 2.5 MG NEB RTQID for WHEEZING for 30 Days, #1 INHALER Prov:KOSTAS RODRIGUEZ MD 06/21/18 Reported Medications Budesonide/Formoterol Fumarate (SYMBICORT 160-4.5 MCG INHALER) 10.2 Gm Hfa.aer.ad, 2 PUFF IH PRN BID PRN for COUGH, #10.6 GM 3 Refills 10/25/18 Dronabinol (MARINOL) 5 Mg Capsule, 5 MG PO TID for appetite , CAP 10/25/18 Bumetanide (BUMETANIDE) 1 Mg Tablet, 0.5 TAB PO PRN for edema, #90 TAB 1 Refill 10/25/18 Spironolactone (ALDACTONE) 25 Mg Tablet, 25 MG PO PRN DAILY for edema 10/15/18 Labetalol Hcl (LABETALOL HCL) 200 Mg Tablet, 200 MG PO BID for HTN 10/15/18 Diltiazem Hcl (CARDIZEM CD) 240 Mg Cap.er.24h, 240 MG PO DAILY for FOR HYPERTENSION 10/15/18 Cholecalciferol (Vitamin D3) (VITAMIN D3) 2,000 Unit Tablet, 2000 UNIT PO DAILY, TAB 03/01/17 Discontinued Reported Medications Losartan Potassium (LOSARTAN POTASSIUM) 50 Mg Tablet, 50 MG PO DAILY for HYPERTENSION 10/15/18 Atorvastatin Calcium (ATORVASTATIN CALCIUM) 20 Mg Tablet, 20 MG PO DAILY for HLD 06/11/18 KAITLIN BAH MD Nov 05, 2018 12:19
[2018-11-05 15:00] VITALS: BP 104/37
--- NOTE | 2018-11-05 16:25 | NUR ---
SW following pt. Orders faxed to hospice and equipment will be delivered by 1730. SW arranged transport by 1800. Pt's choice and rights forms signed by pt's son and copies on chart. A nurse from hospice will meet family tomorrow at 0900. Discussed with RN and orders in Packet.
--- NOTE | 2018-11-05 19:51 | NUR ---
Discharge Note: JAYLEEN MOTLEY [address] [place] [address] Discharge instructions and discharge home medications reviewed with and a copy given. All questions have been answered and understanding verbalized. The following instructions and handouts were given: Hospice, end of life care Discontinued lines and drains: Port de-accessed. Patient discharged to Hospice with Family Member via Stretcher
== END 2018-11-05 19:52 | disposition hospice, home (50) | DRG 542 ==
LOC: ER 11:58 → 5 SOUTH 13:33
PROVIDERS: ADMIT Internal Medicine; ATTEND Internal Medicine
PROC: 0W993ZZ Drainage of Right Pleural Cavity, Percutaneous Approach (ICD-10-PCS; principal; 2018-10-31)
DX: C79.51 Secondary malignant neoplasm of bone (principal); E43 Unspecified severe protein-calorie malnutrition; E87.0 Hyperosmolality and hypernatremia; J91.0 Malignant pleural effusion; I50.32 Chronic diastolic (congestive) heart failure; R18.0 Malignant ascites; C50.919 Malignant neoplasm of unspecified site of unspecified female breast; E83.52 Hypercalcemia; D63.0 Anemia in neoplastic disease; D70.1 Agranulocytosis secondary to cancer chemotherapy; E11.649 Type 2 diabetes mellitus with hypoglycemia without coma; E78.5 Hyperlipidemia, unspecified; E87.8 Other disorders of electrolyte and fluid balance, not elsewhere classified; I11.0 Hypertensive heart disease with heart failure; J45.909 Unspecified asthma, uncomplicated; K21.9 Gastro-esophageal reflux disease without esophagitis; K59.00 Constipation, unspecified; L89.91 Pressure ulcer of unspecified site, stage 1; M81.0 Age-related osteoporosis without current pathological fracture; T45.1X5A Adverse effect of antineoplastic and immunosuppressive drugs, initial encounter; Z79.4 Long term (current) use of insulin; Z79.51 Long term (current) use of inhaled steroids; Z79.899 Other long term (current) drug therapy; Z85.3 Personal history of malignant neoplasm of breast; Z87.891 Personal history of nicotine dependence; Z90.12 Acquired absence of left breast and nipple; Z92.3 Personal history of irradiation; F32.9 Major depressive disorder, single episode, unspecified; F41.9 Anxiety disorder, unspecified; M19.90 Unspecified osteoarthritis, unspecified site; Z68.21 Body mass index [BMI] 21.0-21.9, adult
CPT/HCPCS: 32555; 36415; 70470; 71045; 71046; 80048; 80053; 80061; 80069; 81001; 82040; 82306; 82310; 82962; 83615; 84100; 84157; 84681; 85007; 85025; 87071; 87075; 88112; 88305; 93005; 94640; 94760; J1815; J2430; J7030; J7042; J7050; J7120; J7613; J7626; Q0167; Q9967; 97110; 97116; 97530; 97535; 99285-25; G0378